=== PATIENT | female | born 1955 | race Caucasian/White ===

== ENCOUNTER → 2017-10-20 09:54 | Outpatient (CLI) | payer MEDICARE, SELFPAY ==
[2017-10-20 10:19] LABS: Basophils # 0.1 K/mm3 (0-0.2); Basophils % 0.8 % (0.1-2.0); Eosinophils # 0.3 K/mm3 (0.0-0.4); Eosinophils % 3.5 % (0.1-12.0); Hematocrit 48.2 % (37.0-47.0); Hemoglobin 15.8 g/dL (12.2-16.2); Lymphocytes # 2.4 K/mm3 (0.7-4.5); Lymphocytes % 31.6 K/mm3 (10-50); Mean Corpuscular HGB Conc 32.7 g/dL (31.8-35.4); Mean Corpuscular Hemoglobin 30.8 pg (27.0-31.2); Mean Platelet Volume 7.6 fl (7.4-10.4); Monocytes # 0.5 K/mm3 (0.1-1.0); Monocytes % 6.2 % (1.7-9.3); Neutrophils # 4.5 K/mm3 (1.8-7.8); Platelet Count 249 K/mm3 (142-424); Red Blood Count 5.12 M/mm3 (4.20-5.40); Red Cell Distribution Width 13.6 % (11.5-17.5); White Blood Count 7.7 K/mm3 (4.8-10.8)
[2017-10-20 10:44] LABS: Hemoglobin A1C 7.4 % (0.0-7.0)
[2017-10-20 11:14] LABS: Alanine Aminotransferase 27 U/L (12-78); Albumin Level 3.7 gm/dL (3.4-5.0); Albumin/Globulin Ratio 1.3 (1.1-1.8); Alkaline Phosphatase 80 U/L (46-116); Anion Gap 12.5 mEq/L (5-15); Bilirubin,Total 0.5 mg/dL (0.2-1.0); Blood Urea Nitrogen 15 mg/dL (7-18); Calcium 9.1 mg/dL (8.5-10.1); Carbon Dioxide 27 mmol/L (21.0-32.0); Chloride 106 mmol/L (98-107); Chol/HDL Ratio 3.2 (1-3.5); Cholesterol 140 mg/dL (140-200); Creatinine,Serum 0.65 mg/dL (0.55-1.02); Estimated Glomerular Filt Rate 92 ml/min (>60); GFR (African American) 112 ML/MIN (>60); Globulin 2.9 gm/dl (1.3-3.2); Glucose 136 mg/dL (74-106); HDL Cholesterol 44 mg/dL (29-89); LDL Cholesterol 83 mg/dL (0-130); Sodium 141 mmol/L (136-145); Thyroid Stimulating Hormone 0.62 uIU/ml (0.358-3.740); Total Protein,Serum 6.6 gm/dL (6.4-8.2); Triglycerides 66 mg/dL (30-200); VLDL Cholesterol 13 mg/dL (0-40)
[2017-10-20 11:15] LABS: Potassium 4.5 mmoL/L (3.5-5.1)
[2017-10-20 11:16] LABS: Aspartate Amino Transferase 14 U/L (15-37)
== END ==
PROVIDERS: PCP Internal Medicine Adolescent Medicine; Visit Provider Nurse Practitioner Family
DX: E11.9 Type 2 diabetes mellitus without complications (principal); I10 Essential (primary) hypertension; R63.4 Abnormal weight loss; J44.9 Chronic obstructive pulmonary disease, unspecified
CPT/HCPCS: 36415; 80053; 80061; 83036; 84443; 85025

== ENCOUNTER → 2017-10-20 10:14 | Outpatient (CLI) | payer MEDICARE, SELFPAY ==
--- NOTE | 2017-10-20 | XR_ITS ---
XR clavicle LT COMPARISON: CT scan the chest 04/02/2017 HISTORY: Possible soft tissue mass near AC joint TECHNIQUE: 2 views of the clavicle FINDINGS: The clavicle is intact and the AC joint appears normal. There is a small area of soft tissue prominence overlying the distal clavicle measuring roughly 4.5 cm at its base which shows the same attenuation as the soft tissues about the humeral head and upper arm. Humeral head and glenoid appear normal. There is apparent stent likely involving the origin the left common carotid artery at the aortic arch. IMPRESSION: Small soft tissue swelling and/or mass projecting over the lateral clavicle possibly representing a lipoma, possibly MRI scan of the left shoulder helpful for additional evaluation
== END ==
PROVIDERS: PCP Internal Medicine Adolescent Medicine; Visit Provider Internal Medicine Adolescent Medicine
DX: C34.92 Malignant neoplasm of unspecified part of left bronchus or lung (principal); Q79.8 Other congenital malformations of musculoskeletal system; J44.9 Chronic obstructive pulmonary disease, unspecified; Z79.899 Other long term (current) drug therapy
CPT/HCPCS: 36415; 73000; 80053; 80061; 83036; 84443; 85025

== ENCOUNTER → 2017-10-25 15:28 | Outpatient (CLI) | payer MEDICARE, SELFPAY ==
--- NOTE | 2017-10-25 15:33 | MM_ITS ---
MM Dig screening mamm BI w/CAD CAD Screening ORDERING PHYSICIAN : Brandy Jorgensen PATIENT AGE: 62 years GENDER: Female COMPARISON: Previous mammograms: 20 INDICATION: Routine screening 62-year-old no hormones no new complaints noncontributory family history TECHNIQUE: Standard CC and MLO images were obtained. R2 CAD reviewed. FINDINGS: Fairly low-density breast with minimal fibroglandular elements scattered throughout both breasts No new areas concern either breast. No dominant mass nor suspicious calcifications. CAD highlights no areas of concern either. Follow-up in one year recommended IMPRESSION: No areas of concern. Negative stable bilateral mammogram . Follow up one year BI-RADS Category: 1 Negative RECOMMENDED FOLLOW-UP: 1YR - 1 YEAR FOLLOW-UP (A letter has been sent to the patient regarding results of the study.)
--- NOTE | 2017-10-25 15:34 | XR_ITS ---
XR DEXA axial skeleton HISTORY: ITS.REASON: POSTMENOPAUSAL ORDERING PHYSICIAN: Brandy Jorgensen PATIENT AGE: 62 years COMPARISON: None FINDINGS: The BMD measured at the right femoral neck is 0.727 g/cm squared with a T score of -2.2. This is considered Osteopenic according to the World Health Organization criteria. Fracture risk is Moderate. Treatment is advised. The density of the L-spine as a T score of 1.0 IMPRESSION: Osteopenia with moderate fracture risk. Treatment suggested. Recommend follow-up exam October 2019
== END ==
PROVIDERS: PCP Internal Medicine Adolescent Medicine; Visit Provider Nurse Practitioner Family
DX: Z12.31 Encounter for screening mammogram for malignant neoplasm of breast (principal); Z78.0 Asymptomatic menopausal state; Z13.820 Encounter for screening for osteoporosis
CPT/HCPCS: 77067; 77080

== ENCOUNTER → 2017-10-29 08:36 | Outpatient (CLI) | payer MEDICARE, SELFPAY ==
--- NOTE | 2017-10-29 08:42 | MR_ITS ---
MR shoulder LT wo con HISTORY: Palpable abnormality on top of the shoulder around the clavicle increasing in size with abnormal radiograph ITS.REASON: SOFT TISSUE MASS, ABNORMAL FINDINGS ON DIAGNOSTIC IMAGING OF ORDERING PHYSICIAN: Brandy Jorgensen PATIENT AGE: 62 years COMPARISON: Radiograph of 10/20/2017 TECHNIQUE: Standard multiplanar multiecho sequences are performed without contrast. FINDINGS: There is a 2.7 x 1.6 x 2.2 cm cystic lesion along the superior aspect of the acromioclavicular joint.. This is directly contiguous with the AC joint. Hypertrophic changes are present at the AC joint causing some impingement upon the supraspinatus tendon with subacromial stenosis of approximately 5 mm. There are some hypertrophic changes along the undersurface of the acromion. Tendinopathy/tendinosis present involving the supraspinatus tendon with some mild thinning of the tendon distally with some discontinuous signal along the distal aspect of the supraspinatus tendon consistent with a partial tear. Tendinopathy/tendinosis involves the infraspinatus tendon with also suspected partial tear. Subscapularis and teres minor tendons are intact. No obvious labral tear. Bicipital tendon is in place. No fracture or dislocation. No bony destructive lesions. IMPRESSION: 1. 2.7 cm subcutaneous cystic lesion along the superior aspect of the acromioclavicular joint possibly related to a bursa from the AC joint versus a subcutaneous cystic lesion. 2. Acromioclavicular arthropathy with subacromial stenosis and impingement upon the supraspinatus tendon. 3. Tendinopathy/tendinosis of the supraspinatus and infraspinatus tendons with partial tears. A complete tear with tendinous and muscle retraction not identified although there is some thinning of the distal aspect of the supraspinatus tendon which could be related to chronic tears.
== END ==
PROVIDERS: PCP Internal Medicine Adolescent Medicine; Visit Provider Nurse Practitioner Family
DX: R93.7 Abnormal findings on diagnostic imaging of other parts of musculoskeletal system (principal)
CPT/HCPCS: 73221

== ENCOUNTER → 2017-11-26 15:47 | Outpatient (CLI) | payer MEDICARE, SELFPAY ==
[2017-11-26 16:00] LABS: Basophils # 0.1 K/mm3 (0-0.2); Basophils % 0.6 % (0.1-2.0); Eosinophils # 0.3 K/mm3 (0.0-0.4); Eosinophils % 3.6 % (0.1-12.0); Hematocrit 46.3 % (37.0-47.0); Hemoglobin 15.1 g/dL (12.2-16.2); Lymphocytes # 2.9 K/mm3 (0.7-4.5); Lymphocytes % 38.3 K/mm3 (10-50); Mean Corpuscular HGB Conc 32.5 g/dL (31.8-35.4); Mean Corpuscular Hemoglobin 31.2 pg (27.0-31.2); Mean Corpuscular Volume 95.8 fl (81-99); Mean Platelet Volume 7.6 fl (7.4-10.4); Monocytes # 0.5 K/mm3 (0.1-1.0); Monocytes % 6.9 % (1.7-9.3); Neutrophils # 3.9 K/mm3 (1.8-7.8); Neutrophils % 50.7 % (37.0-80.0); Platelet Count 262 K/mm3 (142-424); Red Blood Count 4.83 M/mm3 (4.20-5.40); Red Cell Distribution Width 13.8 % (11.5-17.5); White Blood Count 7.7 K/mm3 (4.8-10.8)
[2017-11-26 16:11] LABS: Alanine Aminotransferase 26 U/L (12-78); Albumin Level 3.6 gm/dL (3.4-5.0); Albumin/Globulin Ratio 1.1 (1.1-1.8); Alkaline Phosphatase 73 U/L (46-116); Anion Gap 12.1 mEq/L (5-15); Aspartate Amino Transferase 6 U/L (15-37); Bilirubin,Total 0.2 mg/dL (0.2-1.0); Blood Urea Nitrogen 13 mg/dL (7-18); Calcium 9.3 mg/dL (8.5-10.1); Carbon Dioxide 31 mmol/L (21.0-32.0); Chloride 105 mmol/L (98-107); Creatinine,Serum 0.78 mg/dL (0.55-1.02); Estimated Glomerular Filt Rate 75 ml/min (>60); GFR (African American) 91 ML/MIN (>60); Globulin 3.3 gm/dl (1.3-3.2); Glucose 222 mg/dL (74-106); Potassium 4.1 mmoL/L (3.5-5.1); Sodium 144 mmol/L (136-145); Total Protein,Serum 6.9 gm/dL (6.4-8.2)
== END ==
PROVIDERS: PCP Internal Medicine Adolescent Medicine; Visit Provider Otolaryngology
DX: Z01.818 Encounter for other preprocedural examination (principal); R49.0 Dysphonia; J38.1 Polyp of vocal cord and larynx; K11.8 Other diseases of salivary glands
CPT/HCPCS: 36415; 80053; 85025; 93005

== ENCOUNTER 2017-11-29 08:05 | Day surgery (SDC) | payer MEDICARE, SELFPAY ==
[2017-11-27 17:04] VITALS: BMI 31.1
[2017-11-29] VITALS (10 sets, daily range): BP systolic 106–143; BP diastolic 52–97; PULSE 77–87; RESP 12–22; TEMP 36.2–36.6; O2SAT 86–92
[2017-11-29 08:39] LABS: POC Glucose,Bedside 156 mg/dL (70-110)
--- NOTE | 2017-11-29 08:54 | P.PN_ITS ---
[facility] Anesthesia Checklist - Patient Identification Patient Identification: Arm Band - Structural Data Admitted From: Home Planned Operative Procedure/s: laryngoscopy Consent for Planned Operative Procedure(s) Verified: Yes Verified Documents: Surgical Consent, History and Physical - NPO Status Verified Time NPO: 00:00 - Additional verifications Anesthesia Reactions: No - Airway Assessment C-Spine Mobility Assessed: Yes (mp2) TMJ Mobility Assessed: Yes Dentition: Edentulous - Neurological Assessment Level of Consciousness: Awake, Alert - Anesthesia Plan Anesthesia Risk discussed: Yes Anesthesia Plan: Verified ASA Class: III Anesthesia Type: General [facility] Anesthesia HX I have reviewed the patient's past medical history: Yes Medical History: Reports:: Cancer (lung), Chronic Obstructive Pulmonary Disease (COPD), Coronary Artery Disease, Cerebrovascular Accident, Diabetes Mellitus Type 2, Hyperlipidemia, Hypertension, Myocardial Infarction Denies:: Diabetes Mellitus Type 1, Internal Pacemaker, MRSA, Seizures Other Medical History: Denies: Blood Transfusion Reaction Laterality Cases: Bilateral: Tonsillectomy Other Surgeries: Yes: Hysterectomy-Total. No: Pacemaker Amputation: No Fractures: No *Family Hx:: Diabetes, Hypertension, Heart Attack, Coronary Artery Disease, Hyperlipidemia
--- NOTE | 2017-11-29 10:48 | HMH.ANESI ---
[facility] Anesthesia Record Part I Intake, IV Amount: 800 Estimated blood loss (mL): 0 Urine output (mL): 0 Blood Pressure: 143/97 SaO2: 92 Pulse Rate: 77 Respiratory Rate: 12 Temperature: 97.5 F Patient is:: Awake, Stable Stable to PACU at:: 10:45
--- NOTE | 2017-11-29 10:49 | HMH.ANESII ---
[facility] Anesthesia Record Part II Discharge Time: 11:15 Destination: [facility] PACU nurse assessment reviewed?: Yes Patient Condition:: Good Anesthesia Complications:: None
--- NOTE | 2017-11-29 10:50 | P.PN_ITS ---
[facility] Anesthesia Record Part II Discharge Time: 11:15 Destination: [facility] PACU nurse assessment reviewed?: Yes Patient Condition:: Good Anesthesia Complications:: None
--- NOTE | 2017-11-29 14:36 | SUR.PHASEI ---
1055- pt has COPD, highest O2 sats prior to surgery is 91% on RA & pt states that is her baseline.
--- NOTE | 2017-12-03 12:46 | HMH.OPNOTE ---
Date of procedure: 11/29/17 Pre-op Diagnosis:: 1.Hoarseness 2. right vocal polyp Post-op Diagnosis:: same Procedure performed:: Microlaryngoscopy with removal of the right vocal polyp Surgeon:: Bakari Barksdale MD BIOSTATISTICIAN:: Kenny Mendoza Anesthesia: GETA Estimated blood loss (mL): 1 Operative findings:: same Operative note:: The SlimLine laryngoscope was used to expose the larynx. The supraglottic and subglottic portions of the larynx were normal. 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 Using the endoscopic instruments and scopes the polyps were removed from the right vocal cord and submitted. Blood loss was less than 1 cc and stopped with topical epinephrine. The patient tolerated the procedure well and was sent to the recovery room in good general condition. Condition: stable Disposition: PACU Complications:: none
--- NOTE | 2017-12-03 12:49 | P.OP_ITS ---
Date of procedure: 11/29/17 Pre-op Diagnosis:: 1.Hoarseness 2. right vocal polyp Post-op Diagnosis:: same Procedure performed:: Microlaryngoscopy with removal of the right vocal polyp Surgeon:: Bakari Barksdale MD MANAGER BANK:: Kenny Mendoza Anesthesia: GETA Estimated blood loss (mL): 1 Operative findings:: same Operative note:: The SlimLine laryngoscope was used to expose the larynx. The supraglottic and subglottic portions of the larynx were normal. 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 Using the endoscopic instruments and scopes the polyps were removed from the right vocal cord and submitted. Blood loss was less than 1 cc and stopped with topical epinephrine. The patient tolerated the procedure well and was sent to the recovery room in good general condition. Condition: stable Disposition: PACU Complications:: none
== END 2017-11-29 12:00 | disposition home or self-care (01) ==
PROVIDERS: PCP Internal Medicine Adolescent Medicine; Visit Provider Otolaryngology
PROC: 0CJS8ZZ Inspection of Larynx, Via Natural or Artificial Opening Endoscopic (ICD-10-PCS; principal; 2017-11-29 09:35)
DX: D14.1 Benign neoplasm of larynx (principal); Z79.899 Other long term (current) drug therapy
CPT/HCPCS: 31536; 82962; 88305; 96374; 96375

== ENCOUNTER → 2018-04-20 07:25 | Outpatient (CLI) | payer MEDICARE, SELFPAY ==
[2018-04-20 07:30] LABS: Microscopic, Urine URINE MICROSCOPIC (MICROSCOPIC)
[2018-04-20 07:56] LABS: Appearance,Urine CLEAR (Clear); Bilirubin,Urine Negative (Negative); Blood, Urine TRACE-L (Negative); Color,Urine YELLOW (Yellow); Glucose,Urine (UA) Negative (Negative); Ketones,Urine Negative (Negative); Leukocyte Esterase,Urine Negative (Negative); Nitrate,Urine Negative (Negative); PH,Urine 6.5 (5.0-8.5); Protein,Urine Negative (Negative); Urobilinogen,Urine 0.2 EU/dl (0.2)
[2018-04-20 08:35] LABS: Hemoglobin A1C 7.7 % (0.0-7.0); Squamous Epithelial Cell,Urine Occasional #/hpf (0-5); WBC,Urine Occasional #/hpf (0-3); Yeast,Urine 1+ /lpf
[2018-04-20 08:37] LABS: Basophils # 0.1 K/mm3 (0-0.2); Basophils % 0.8 % (0.1-2.0); Eosinophils # 0.3 K/mm3 (0.0-0.4); Eosinophils % 4.5 % (0.1-12.0); Hematocrit 46.4 % (37.0-47.0); Hemoglobin 15.7 g/dL (12.2-16.2); Lymphocytes # 2.5 K/mm3 (0.7-4.5); Lymphocytes % 34.2 K/mm3 (10-50); Mean Corpuscular HGB Conc 33.8 g/dL (31.8-35.4); Mean Corpuscular Hemoglobin 31.9 pg (27.0-31.2); Mean Corpuscular Volume 94.5 fl (81-99); Mean Platelet Volume 7.4 fl (7.4-10.4); Monocytes # 0.5 K/mm3 (0.1-1.0); Monocytes % 7.1 % (1.7-9.3); Neutrophils # 3.9 K/mm3 (1.8-7.8); Neutrophils % 53.3 % (37.0-80.0); Platelet Count 259 K/mm3 (142-424); Red Blood Count 4.91 M/mm3 (4.20-5.40); Red Cell Distribution Width 13.2 % (11.5-17.5); White Blood Count 7.3 K/mm3 (4.8-10.8)
[2018-04-20 09:47] LABS: Alanine Aminotransferase 25 U/L (12-78); Albumin Level 3.7 gm/dL (3.4-5.0); Albumin/Globulin Ratio 1.3 (1.1-1.8); Alkaline Phosphatase 76 U/L (46-116); Anion Gap 8.2 mEq/L (5-15); Aspartate Amino Transferase 9 U/L (15-37); Bilirubin,Total 0.4 mg/dL (0.2-1.0); Blood Urea Nitrogen 12 mg/dL (7-18); Calcium 9.3 mg/dL (8.5-10.1); Carbon Dioxide 29 mmol/L (21.0-32.0); Chloride 106 mmol/L (98-107); Cholesterol 126 mg/dL (140-200); Creatinine,Serum 0.71 mg/dL (0.55-1.02); Estimated Glomerular Filt Rate 83 ml/min (>60); GFR (African American) 101 ML/MIN (>60); Globulin 2.9 gm/dl (1.3-3.2); Glucose 152 mg/dL (74-106); HDL Cholesterol 42 mg/dL (29-89); LDL Cholesterol 68 mg/dL (0-130); Potassium 4.2 mmoL/L (3.5-5.1); Sodium 139 mmol/L (136-145); Total Protein,Serum 6.6 gm/dL (6.4-8.2); Triglycerides 78 mg/dL (30-200); VLDL Cholesterol 16 mg/dL (0-40)
[2018-04-21 04:07] LABS: Creatinine, Urine 65.9 mg/dL (Not Estab.); Microalbumin, Urine <3.0 ug/mL (Not Estab.)
== END ==
PROVIDERS: Visit Provider Nurse Practitioner Family
DX: E11.9 Type 2 diabetes mellitus without complications (principal); I10 Essential (primary) hypertension; J44.9 Chronic obstructive pulmonary disease, unspecified; R10.32 Left lower quadrant pain; F17.200 Nicotine dependence, unspecified, uncomplicated
CPT/HCPCS: 36415; 80053; 80061; 81001; 82043; 82570; 83036; 85025

== ENCOUNTER → 2018-04-26 09:30 | Outpatient (CLI) | payer MEDICARE, SELFPAY ==
--- NOTE | 2018-04-26 09:35 | CT_ITS ---
CT abdomen pelvis wo/w con CLINICAL INDICATION: Hematuria with left-sided abdominal pain ITS.REASON: HEMATURIA ORDERING PHYSICIAN: Brandy Jorgensen PATIENT AGE: 62 years COMPARISON: TECHNIQUE: Axial images obtained without and with contrast with sagittal and coronal reformats. All CT scans at the facility use one or more dose reduction, viz: automated exposure control, ma/kV adjustment per patient size (including targeted exams where dose is matched to indication, i.e. head), or iterative reconstruction technique. PROCEDURE: Oral Contrast: None IV Contrast: 75 mg of Isovue-370. FINDINGS: Images of the lung bases show prominent fat density within the right interatrial septal region consistent with a lipoma measuring 3 x 2.4 cm unchanged. There are coronary artery calcifications. Subtle 6 mm isodense involves the right hepatic lobe posteriorly. An additional 6 mm isodense is present just deep to the gallbladder fossa within the right lobe of the liver. These are nonspecific too small to characterize. No calcified gallstones. The spleen, adrenal glands, and pancreas have an unremarkable appearance. There is a small calcific density along pancreatic head superiorly and may be within a small. Pancreatic lymph node.. No renal or ureteral calculi. Vascular calcifications are present within the kidneys. No hydronephrosis. No renal mass. Unremarkable appendix. There is diverticulosis of the sigmoid colon but no evidence of diverticulitis. There is mild nonspecific thickening of the sigmoid colon which may be seen with colitis. Prior hysterectomy. No pelvic mass or abnormal fluid collection. No acute bony anomalies. IMPRESSION: 1. No acute abdominal or pelvic findings. 2. At least 2 6-mm isodense lesions of the liver nonspecific too small to categorize and are statistically probably benign 3. Sigmoid diverticulosis. Nonspecific thickening of the sigmoid colon which could be related to colitis. No evidence of diverticulitis. 4. 3 cm fatty lesion of the intra-atrial septum of the heart consistent with a lipoma
== END ==
PROVIDERS: Family Provider Internal Medicine Adolescent Medicine; PCP Internal Medicine Adolescent Medicine; Visit Provider Nurse Practitioner Family
DX: R31.29 Other microscopic hematuria (principal)
CPT/HCPCS: 74170; 74178; Q9967

== ENCOUNTER → 2018-05-01 06:19 | Outpatient (CLI) | payer MEDICARE, SELFPAY ==
--- NOTE | 2018-05-01 06:21 | CA_ITS ---
PROCEDURE: 2-D M-mode and color Doppler study INDICATIONS FOR THE TEST: Chest pain COPD+ Heart Murmur Tobacco Smoking+ Palpitations Fatigue Syncope Edema+ Hypertension+Diabetes Mellitus+ Rheumatic Fever SOB+ACUÑA+Obesity Hyperlipidemia+ Family History HD Additional History hx of CVA, HX of CA, 1 stent Patient had an oxygen sat of 83 after walking to echo dept from stress test. Doctor was notified and patient was placed on oxygen 2 liters by nasal cannula. Patient is going to see family doctor after completion of stress images. PATIENT INFORMATION HEIGHT: 62 WEIGHT: 182 GENDER: Female B/P: 135/67 2-D/M-MODE INTERPRETATION: 2-D MEASUREMENTS OBSERVED VALUES IN CMS Right Ventricular Dimension (RVDd) 3.0 Interventricular Septum (Thickness)(IVsd) 0.9 Left Ventricular Internal Dimensions(LVIDd) 5.2 Left Ventricular Posterior Wall (Thickness)(LVPWd) 0.9 Aortic Root 3.1 Aortic Cusp Separation 2.1 Left Atrial Dimensions (LAD) 4.2 2D 1. Left atrium is mildly enlarged, left ventricle is normal size, there is mild qualitative concentric left ventricular hypertrophy, visually estimated ejection fraction 50% with no obvious regional wall motion abnormality. 2. The right atrium and right ventricle are mildly enlarged with normal contractility. 3. The aortic valve is minimally thickened and fibrosed. 4. The mitral and tricuspid valve leaflets are minimally thickened 5. The pulmonic valve is poorly visualized. 6. No significant pericardial effusion noted. DOPPLER INTERROGATION: Doppler interrogation of the aortic, mitral and tricuspid valvular presence of mild mitral and tricuspid regurgitation, tricuspid and jet velocity is insufficient for calculation of the right ventricular systolic pressure, grade 1 diastolic dysfunction seen with tissue Doppler evidence of raised left atrial pressure. CONCLUSION: 1. Biatrial enlargement, normal left ventricular size, mild concentric left ventricular hypertrophy, visually estimated to fraction 50% with no obvious regional wall motion abnormality, grade 1 diastolic dysfunction seen with tissue Doppler evidence of raised left atrial pressure. 2. Mild mitral and tricuspid regurgitation 3. No significant pericardial effusion noted.
--- NOTE | 2018-05-01 06:21 | NM_ITS ---
History and Indications: Coronary artery disease, previous CT, hypertension, diabetes, hyperlipidemia, chronic tobacco use, family history and shortness of breath. Procedure: Patient received a 0.4 milligrams of Lexiscan, resting heart rate was 75 bpm, resting blood pressure 160/82, with Lexiscan maximum heart rate achieved was 99 bpm is less than 85% of the maximum predicted heart rate and a blood pressure was 126/66. With Lexiscan patient complained of shortness of breath and nausea Electrocardiogram: Resting electrocardiogram showed sinus rhythm nonspecific changes, with Lexiscan there is less than 1.[address] segment depression noted from the baseline EKG. The EKG portion of the Lexiscan Myoview is nondiagnostic. Cardiac stress and resting SPECT images: Cardiac stress and rest SPECT images were obtained using technetium 99 Myoview 31.7 mCi at stress and 9.9 mCi at rest. Gated SPECT further analysis of segmental wall motion and calculation of the ejection fraction also done. Cardiac stress and rest images show decreased tracer activity in the anterolateral wall which improves on the resting images suggestive of reversible ischemia, in addition there is a fixed defect involving the inferior and posterobasal wall consistent with nontransmural myocardial scarring without significant odette-infarct ischemia in that area. Ejection fraction is 49% with moderate hypokinesis involving the inferior and posterobasal wall, right ventricle is mildly enlarged with normal contractility. Conclusion: 1. The EKG portion of the Lexiscan Myoview is nondiagnostic. 2. Scintigraphic evidence of nontransmural myocardial scarring involving the inferior and posterobasal wall without significant odette-infarct ischemia, in addition there is reversible ischemia involving the anterolateral wall. Computer derived ejection fraction is 49% segmental wall motion abnormality described above, right ventricle is mildly enlarged with normal contractility. 3. Abnormal Lexiscan Myoview study.
--- NOTE | 2018-05-01 07:08 | HMH.ITSHM ---
TIOTROPIUM POTASSIUM METFORMIN MELOXICAM MELATONIN ATENOLOL HYDROCHLOROTHIAZIDE GABAPENTIN FUROSEMIDE CLOPIDOGREL CETIRIZINE ATORVASTATIN ALBUTEROL
--- NOTE | 2018-05-01 08:36 | PC.NURSE ---
AFTER WALKING FROM STRESS LAB TO ECHO LAB PATIENT'S PULSE OX WAS 82% ON ROOM AIR. PLACED ON 2LPM FOR A PULSE OX OF 90% DR. GONSALES'S OFFICE WAS CONTACTED AND PATIENT IS TO RETURN TO OFFICE WHEN TESTING IS DONE
--- NOTE | 2018-05-01 09:55 | HMH.ITSHM ---
tiotropium potassium metformin meloxicam melatonin atenolol hctz gabapentin furosemide clopidogrel cetirizine atorvastatin albuterol
== END ==
PROVIDERS: Family Provider Internal Medicine Adolescent Medicine; PCP Internal Medicine Adolescent Medicine; Visit Provider Internal Medicine
DX: I25.10 Atherosclerotic heart disease of native coronary artery without angina pectoris (principal); R06.09 Other forms of dyspnea; R94.31 Abnormal electrocardiogram [ECG] [EKG]
CPT/HCPCS: 78452; 93017; 93306; A9502; J2785

== ENCOUNTER → 2018-05-13 11:30 | Outpatient (CLI) | payer MEDICARE, SELFPAY ==
--- NOTE | 2018-05-13 11:32 | XR_ITS ---
XR chest 2V HISTORY: Shortness of air ITS.REASON: soa ORDERING PHYSICIAN: Sheree Diallo PATIENT AGE: 62 years COMPARISON: 03/11/2017 FINDINGS: Unremarkable cardiovascular structures. There is chronic coarsening of the bronchovascular markings with hyperinflation consistent with COPD. There is an irregular area of increased density in the left upper lobe medially superior to the aortic knob. While this could be due to summation artifact, a developing nodule/neoplasm is an additional consideration and chest CT is suggested for further evaluation. No lobar consolidation or collapse. Coronary artery stent is present anteriorly. There is increased density in the left lower lobe posteriorly suspicious for an area of infiltrate. No acute bony anomalies. Para impression: 1. COPD with left lower lobe infiltrate. 2. Irregular opacity in the left upper lobe medially suspicious for developing nodule/neoplasm. Recommend CT chest with contrast for further evaluation
== END ==
PROVIDERS: PCP Internal Medicine Adolescent Medicine; Visit Provider Urology
DX: R06.02 Shortness of breath (principal)
CPT/HCPCS: 71046

== ENCOUNTER 2018-05-28 09:03 | Outpatient (RCR) | payer MEDICARE, SELFPAY | END 2018-07-31 10:19 | disposition home or self-care (01) | LOC: PT 09:03 | PROVIDERS: Family Provider Internal Medicine Adolescent Medicine; PCP Internal Medicine Adolescent Medicine; Visit Provider Internal Medicine | DX: Z95.5 Presence of coronary angioplasty implant and graft (principal) | CPT/HCPCS: 93798 ==

== ENCOUNTER → 2018-06-28 11:47 | Outpatient (CLI) | payer MEDICARE, SELFPAY | PROVIDERS: PCP Internal Medicine Adolescent Medicine; Visit Provider Internal Medicine | DX: E11.9 Type 2 diabetes mellitus without complications (principal); E78.5 Hyperlipidemia, unspecified; I10 Essential (primary) hypertension; I25.10 Atherosclerotic heart disease of native coronary artery without angina pectoris; J44.9 Chronic obstructive pulmonary disease, unspecified; Z95.5 Presence of coronary angioplasty implant and graft | CPT/HCPCS: 36415; 84132 ==

== ENCOUNTER → 2018-07-02 12:19 | Outpatient (CLI) | payer MEDICARE, SELFPAY ==
[2018-07-02 12:48] LABS: Basophils # 0.1 K/mm3 (0-0.2); Basophils % 0.5 % (0.1-2.0); Eosinophils # 0.3 K/mm3 (0.0-0.4); Eosinophils % 2.8 % (0.1-12.0); Hematocrit 46.4 % (37.0-47.0); Hemoglobin 15.4 g/dL (12.2-16.2); Lymphocytes # 2.4 K/mm3 (0.7-4.5); Lymphocytes % 22.7 K/mm3 (10-50); Mean Corpuscular HGB Conc 33.1 g/dL (31.8-35.4); Mean Corpuscular Hemoglobin 31.6 pg (27.0-31.2); Mean Corpuscular Volume 95.6 fl (81-99); Mean Platelet Volume 7.6 fl (7.4-10.4); Monocytes # 0.7 K/mm3 (0.1-1.0); Monocytes % 6.4 % (1.7-9.3); Neutrophils # 7.3 K/mm3 (1.8-7.8); Neutrophils % 67.7 % (37.0-80.0); Platelet Count 232 K/mm3 (142-424); Red Blood Count 4.86 M/mm3 (4.20-5.40); Red Cell Distribution Width 13.4 % (11.5-17.5); White Blood Count 10.8 K/mm3 (4.8-10.8)
[2018-07-02 13:12] LABS: Anion Gap 12.8 mEq/L (5-15); Blood Urea Nitrogen 15 mg/dL (7-18); Calcium 9.4 mg/dL (8.5-10.1); Carbon Dioxide 30 mmol/L (21.0-32.0); Chloride 97 mmol/L (98-107); Creatinine,Serum 0.99 mg/dL (0.55-1.02); Estimated Glomerular Filt Rate 57 ml/min (>60); GFR (African American) 69 ML/MIN (>60); Glucose 230 mg/dL (74-106); Potassium 3.8 mmoL/L (3.5-5.1); Sodium 136 mmol/L (136-145)
== END ==
PROVIDERS: PCP Internal Medicine Adolescent Medicine; Visit Provider Internal Medicine
DX: I50.9 Heart failure, unspecified (principal)
CPT/HCPCS: 36415; 80048; 83880; 85025

== ENCOUNTER → 2019-03-27 08:22 | Outpatient (CLI) | payer MEDICARE, SELFPAY ==
[2019-03-27 09:02] LABS: Basophils % 0.6 % (0.1-2.0); Eosinophils # 0.3 K/mm3 (0.0-0.4); Eosinophils % 4.2 % (0.1-12.0); Hematocrit 50.4 % (37.0-47.0); Hemoglobin 15.3 g/dL (12.2-16.2); Lymphocytes # 2.5 K/mm3 (0.7-4.5); Lymphocytes % 36.8 % (10-50); Mean Corpuscular HGB Conc 30.4 g/dL (31.8-35.4); Mean Corpuscular Hemoglobin 31.7 pg (27.0-31.2); Mean Corpuscular Volume 104.1 fl (81-99); Mean Platelet Volume 9.1 fl (7.4-10.4); Monocytes # 0.6 K/mm3 (0.1-1.0); Monocytes % 8.2 % (1.7-9.3); Neutrophils # 3.4 K/mm3 (1.8-7.8); Neutrophils % 50.2 % (37.0-80.0); Platelet Count 271 K/mm3 (142-424); Red Blood Count 4.84 M/mm3 (4.20-5.40); Red Cell Distribution Width 13.9 % (11.5-17.5); White Blood Count 6.9 K/mm3 (4.8-10.8)
[2019-03-27 11:48] LABS: Hemoglobin A1C 6.7 % (0.0-7.0)
[2019-03-27 12:18] LABS: Alanine Aminotransferase 22 U/L (12-78); Albumin Level 3.4 gm/dL (3.4-5.0); Albumin/Globulin Ratio 1.3 (1.1-1.8); Alkaline Phosphatase 76 U/L (46-116); Anion Gap 14.4 mEq/L (5-15); Aspartate Amino Transferase 13 U/L (15-37); Bilirubin,Total 0.3 mg/dL (0.2-1.0); Blood Urea Nitrogen 19 mg/dL (7-18); Calcium 9.2 mg/dL (8.5-10.1); Carbon Dioxide 26 mmol/L (21.0-32.0); Chloride 107 mmol/L (98-107); Creatinine,Serum 0.74 mg/dL (0.55-1.02); Estimated Glomerular Filt Rate 79 ml/min (>60); GFR (African American) 96 ML/MIN (>60); Globulin 2.6 gm/dl (1.3-3.2); Glucose 114 mg/dL (74-106); Magnesium 1.8 mg/dL (1.4-2.2); Potassium 4.4 mmoL/L (3.5-5.1); Sodium 143 mmol/L (136-145); Thyroid Stimulating Hormone 0.76 uIU/ml (0.358-3.740)
[2019-03-28 10:42] LABS: Microalbumin, Urine 11.7 ug/mL (Not Estab.)
[2019-03-28 17:15] LABS: Vitamin B12 183 pg/mL (232-1245)
== END ==
PROVIDERS: Visit Provider Nurse Practitioner Family
DX: R42 Dizziness and giddiness (principal); E11.9 Type 2 diabetes mellitus without complications; E78.2 Mixed hyperlipidemia; I25.10 Atherosclerotic heart disease of native coronary artery without angina pectoris; J44.9 Chronic obstructive pulmonary disease, unspecified; F17.200 Nicotine dependence, unspecified, uncomplicated; Z79.84 Long term (current) use of oral hypoglycemic drugs
CPT/HCPCS: 36415; 80053; 82043; 82570; 82607; 83036; 83735; 84443; 85025

== ENCOUNTER → 2019-04-25 15:47 | Outpatient (CLI) | payer MEDICARE, SELFPAY ==
--- NOTE | 2019-04-25 15:53 | MM_ITS ---
MM Dig screening mamm BI w/CAD ORDERING PHYSICIAN : Brandy Jorgensen APRN PATIENT AGE: 63 years GENDER: Female COMPARISON: August 2016, October 2017, April bilateral mammograms as comparison HISTORY: Routine: SCREENING mammogram. No hormones. No new complaints. Noncontributory family history TECHNIQUE: Standard CC and MLO images were obtained. R2 CAD reviewed. FINDINGS: Minimal residual fibroglandular elements. Overall lower density breast with moderate fatty replacement No dominant or suspicious mass. No suspicious calcifications. No new findings of significant concern CAD computer review highlights no areas of concern either Small areas of asymmetric density at left breast dissipate from one view to another., With Similar areas seen on previous left mammogram 2018 IMPRESSION: ......... . Stable bilateral mammogram. No new findings of significant concern Follow-up one year recommended and encouraged BI-RADS Category: 1 Negative RECOMMENDED FOLLOW-UP: 1YR 1 YEAR FOLLOW-UP (A letter has been sent to the patient regarding results of the study.)
== END ==
PROVIDERS: PCP Internal Medicine Adolescent Medicine; Visit Provider Nurse Practitioner Family
DX: Z12.31 Encounter for screening mammogram for malignant neoplasm of breast (principal)
CPT/HCPCS: 77067

== ENCOUNTER → 2019-06-30 14:26 | Outpatient (CLI) | payer MEDICARE, SELFPAY ==
--- NOTE | 2019-06-30 14:28 | CA_ITS ---
APPROVED REPORT EXAM: Comprehensive 2D, Doppler, and color-flow Echocardiogram Homicide Detective: Mariya Monet CRT Ht: 5 ft 2 in Wt: 168lbs BSA: 1.78 BP: 118/72 mmHg Indications: COPD, PAD,, STENT, SMOKER,DM,EDEMA, HTN 2D Dimensions LVOT 1.70 cm (M/F) 1.5-2.5 M-Mode Dimensions RVDd 3.00 cm (0.9-2.6) LA Diam 3.30 cm (1.9-4.0) LVDd 4.70 cm (3.5-5.7) Ao Diam 3.10 cm (2.0-3.7) LVDs 3.20 cm (3.5-5.7) AV Cusp 1.60 cm (1.5-2.6) IVSd 1.80 cm (0.6-1.1) PWd 0.80 cm (0.6-1.1) EF (Teich) 59.80% FS 31.90% EDV (Teich) 102.00 mL ESV (Teich) 41.00 mL LV Diastology E/A Ratio 0.50 MED E' 4.87 (< 7 cm/sec) E'/MED E' Ratio 9.70 (>14) LAT E' 5.85 (<10 cm/sec) E/LAT E' Ratio 8.10 (>14) Aortic Valve AoV Peak Ramirez. 160.00 (50-130 cm/s) AO Peak GR. 10.00 mmHg Mitral Valve MV E Max Ramirez. 47.40 (40-130 cm/s) MV A Velocity 98.20 (40-130 cm/s) E/A Ratio 0.50 Pulmonary Valve PA Accel Time 144.00 (>120 msec) Tricuspid Valve TR P. Velocity 145.00 cm/s Left Ventricle Left atrium is mildly enlarged, left ventricle is normal size, mild concentric left ventricular hypertrophy, visually estimated ejection fraction of 55% with no regional wall motion abnormality, grade 1 diastolic dysfunction seen without tissue Doppler evidence of raise left atrial pressure. Right Ventricle Right atrium and right ventricular normal size and contractility. Aortic Valve Aortic valve is minimally thickened and fibrosed, there is no aortic stenosis aortic insufficiency. Mitral Valve Mitral valve is grossly normal, there is mild mitral regurgitation. Tricuspid Valve Tricuspid valve is grossly normal, there is mild tricuspid regurgitation. Pulmonic Valve Pulmonic valve is poorly visualized. Great Vessels Aortic root is normal size. Pericardium No significant pericardial effusion noted. Conclusion 1. Mildly enlarged left atrium, normal left ventricular size, mild concentric left ventricular hypertrophy, visually estimated ejection fraction 55% with no regional wall motion abnormality, grade 1 diastolic dysfunction seen without tissue Doppler evidence of raise left atrial pressure. 2. Thickened and calcified aortic valve without Doppler evidence of aortic stenosis aortic insufficiency. 3. Mild mitral and tricuspid regurgitation 4. No significant pericardial effusion noted. Electronically signed by : Rolly Mccall, 07/01/2019 05:41:00
== END ==
PROVIDERS: PCP Internal Medicine Adolescent Medicine; Visit Provider Nurse Practitioner Family
DX: I25.10 Atherosclerotic heart disease of native coronary artery without angina pectoris (principal); I73.9 Peripheral vascular disease, unspecified; I77.1 Stricture of artery; R42 Dizziness and giddiness; Z72.0 Tobacco use; Z95.5 Presence of coronary angioplasty implant and graft
CPT/HCPCS: 93306

== ENCOUNTER → 2019-07-21 13:51 | Outpatient (CLI) | payer MEDICARE, SELFPAY ==
[2019-07-21 15:28] LABS: Anion Gap 14.4 mEq/L (5-15); Blood Urea Nitrogen 15 mg/dL (7-18); Calcium 9.8 mg/dL (8.5-10.1); Carbon Dioxide 29 mmol/L (21.0-32.0); Chloride 102 mmol/L (98-107); Creatinine,Serum 0.71 mg/dL (0.55-1.02); Estimated Glomerular Filt Rate 83 ml/min (>60); GFR (African American) 100 ML/MIN (>60); Glucose 127 mg/dL (74-106); Potassium 4.4 mmoL/L (3.5-5.1); Sodium 141 mmol/L (136-145)
== END ==
PROVIDERS: Visit Provider Physician Assistant
DX: I25.10 Atherosclerotic heart disease of native coronary artery without angina pectoris (principal); R06.02 Shortness of breath; R06.00 Dyspnea, unspecified; R06.01 Orthopnea
CPT/HCPCS: 36415; 80048; 83880

== ENCOUNTER → 2019-10-08 07:36 | Outpatient (CLI) | payer MEDICARE, SELFPAY ==
[2019-10-08 09:44] LABS: Basophils # 0.1 K/mm3 (0-0.2); Basophils % 0.8 % (0.1-2.0); Eosinophils # 0.4 K/mm3 (0.0-0.4); Eosinophils % 5.2 % (0.1-12.0); Hematocrit 49.2 % (37.0-47.0); Hemoglobin 15.9 g/dL (12.2-16.2); Lymphocytes # 2.3 K/mm3 (0.7-4.5); Lymphocytes % 28.8 % (10-50); Mean Corpuscular HGB Conc 32.3 g/dL (31.8-35.4); Mean Platelet Volume 8.6 fl (7.4-10.4); Monocytes # 0.5 K/mm3 (0.1-1.0); Monocytes % 5.9 % (1.7-9.3); Neutrophils # 4.7 K/mm3 (1.8-7.8); Neutrophils % 59.3 % (37.0-80.0); Platelet Count 267 K/mm3 (142-424); Red Blood Count 5.12 M/mm3 (4.20-5.40); Red Cell Distribution Width 12.9 % (11.5-17.5); White Blood Count 7.9 K/mm3 (4.8-10.8)
[2019-10-08 10:33] LABS: Alanine Aminotransferase 15 U/L (12-78); Albumin Level 3.7 gm/dL (3.4-5.0); Anion Gap 13.5 mEq/L (5-15); Aspartate Amino Transferase 10 U/L (15-37); Bilirubin,Direct 0.1 mg/dL (0.0-0.2); Bilirubin,Indirect 0.3 mg/dL (0.0-0.9); Bilirubin,Total 0.4 mg/dL (0.2-1.0); Blood Urea Nitrogen 16 mg/dL (7-18); Calcium 9.4 mg/dL (8.5-10.1); Carbon Dioxide 30 mmol/L (21.0-32.0); Chloride 105 mmol/L (98-107); Creatinine,Serum 0.72 mg/dL (0.55-1.02); Estimated Glomerular Filt Rate 82 ml/min (>60); GFR (African American) 99 ML/MIN (>60); Glucose 143 mg/dL (74-106); Potassium 4.5 mmoL/L (3.5-5.1); Sodium 144 mmol/L (136-145); Total Protein,Serum 6.6 gm/dL (6.4-8.2); Triglycerides 84 mg/dL (30-200)
[2019-10-08 10:34] LABS: Alkaline Phosphatase 98 U/L (46-116); Chol/HDL Ratio 3.9 (1-3.5); Cholesterol 129 mg/dL (140-200); Free T4 (Free Thyroxine) 0.98 ng/dl (0.76-1.46); HDL Cholesterol 33 mg/dL (29-89); LDL Cholesterol 79 mg/dL (0-130); VLDL Cholesterol 17 mg/dL (0-40)
== END ==
PROVIDERS: Nurse Practitioner Family; Visit Provider Internal Medicine
DX: I10 Essential (primary) hypertension (principal); I25.10 Atherosclerotic heart disease of native coronary artery without angina pectoris; I73.9 Peripheral vascular disease, unspecified; I95.1 Orthostatic hypotension; J44.9 Chronic obstructive pulmonary disease, unspecified; R06.09 Other forms of dyspnea; R42 Dizziness and giddiness; Z72.0 Tobacco use; Z95.5 Presence of coronary angioplasty implant and graft
CPT/HCPCS: 36415; 80048; 80061; 80076; 84439; 84443; 85025

== ENCOUNTER → 2019-11-03 14:12 | Outpatient (CLI) | payer MEDICARE, SELFPAY ==
[2019-11-03 15:34] LABS: Anion Gap 15.6 mEq/L (5-15); Blood Urea Nitrogen 20 mg/dL (7-18); Calcium 9.6 mg/dL (8.5-10.1); Carbon Dioxide 29 mmol/L (21.0-32.0); Chloride 102 mmol/L (98-107); Creatinine,Serum 0.99 mg/dL (0.55-1.02); Estimated Glomerular Filt Rate 56 ml/min (>60); GFR (African American) 68 ML/MIN (>60); Glucose 198 mg/dL (74-106); Potassium 4.6 mmoL/L (3.5-5.1); Sodium 142 mmol/L (137-145)
== END ==
PROVIDERS: Visit Provider Nurse Practitioner Family
DX: I25.118 Atherosclerotic heart disease of native coronary artery with other forms of angina pectoris (principal); I73.9 Peripheral vascular disease, unspecified; J43.9 Emphysema, unspecified; R06.09 Other forms of dyspnea; Z72.0 Tobacco use; Z95.5 Presence of coronary angioplasty implant and graft
CPT/HCPCS: 36415; 80048

== ENCOUNTER → 2020-03-30 07:23 | Outpatient (CLI) | payer MEDICARE, SELFPAY ==
[2020-03-30 07:50] LABS: Basophils # 0.1 K/mm3 (0-0.2); Basophils % 0.8 % (0.1-2.0); Eosinophils # 0.4 K/mm3 (0.0-0.4); Eosinophils % 4.9 % (0.1-12.0); Hematocrit 47.6 % (37.0-47.0); Lymphocytes # 3.1 K/mm3 (0.7-4.5); Lymphocytes % 35.6 % (10-50); Mean Corpuscular HGB Conc 33.5 g/dL (31.8-35.4); Mean Corpuscular Hemoglobin 33.2 pg (27.0-31.2); Mean Corpuscular Volume 98.9 fl (81-99); Mean Platelet Volume 8.2 fl (7.4-10.4); Monocytes # 0.6 K/mm3 (0.1-1.0); Monocytes % 6.6 % (1.7-9.3); Neutrophils # 4.5 K/mm3 (1.8-7.8); Neutrophils % 52.1 % (37.0-80.0); Platelet Count 260 K/mm3 (142-424); Red Blood Count 4.82 M/mm3 (4.20-5.40); White Blood Count 8.6 K/mm3 (4.8-10.8)
[2020-03-30 07:59] LABS: Creatinine,Urine Random 142 mg/dL (Not Estab.)
[2020-03-30 08:03] LABS: Hemoglobin A1C 6.6 % (4.0-6.0); Microalbumin/Creatinine Ratio 5.1
[2020-03-30 08:58] LABS: Chloride 99 mmol/L (98-107)
[2020-03-30 08:59] LABS: Potassium 4.3 mmoL/L (3.5-5.1); Sodium 141 mmol/L (136-145)
[2020-03-30 09:01] LABS: Alanine Aminotransferase 16 U/L (12-78); Alkaline Phosphatase 78 U/L (38-126); Anion Gap 15.3 mEq/L (5-15); Aspartate Amino Transferase 20 U/L (14-36); Bilirubin,Total 0.6 mg/dl (0.2-1.3); Blood Urea Nitrogen 20 mg/dl (7-17); Carbon Dioxide 31 mmol/L (22.0-30.0); Estimated Glomerular Filt Rate 56 ml/min (>60); GFR (African American) 68 ML/MIN (>60)
[2020-03-30 09:02] LABS: Albumin Level 4.4 g/dl (3.5-5.0); Albumin/Globulin Ratio 1.6 (1.1-1.8); Chol/HDL Ratio 3.6 (1-3.5); Cholesterol 124 mg/dl (140-200); Globulin 2.7 g/dL (1.3-3.2); Glucose 127 mg/dl (74-100); HDL Cholesterol 34 mg/dl (40-60); Total Protein,Serum 7.1 g/dl (6.3-8.2); Triglycerides 128 mg/dl (30-150); VLDL Cholesterol 26 mg/dL (0-40)
[2020-03-30 09:13] LABS: Direct LDL Cholesterol 79.13 mg/dL (100-129)
[2020-03-31 15:27] LABS: Vitamin B12 723 pg/mL (232-1245)
== END ==
PROVIDERS: Visit Provider Internal Medicine Adolescent Medicine
DX: E53.8 Deficiency of other specified B group vitamins (principal); E11.9 Type 2 diabetes mellitus without complications; Z79.84 Long term (current) use of oral hypoglycemic drugs
CPT/HCPCS: 36415; 80053; 80061; 82043; 82570; 82607; 83036; 85025

== ENCOUNTER → 2020-06-09 17:05 | Outpatient (CLI) | payer MEDICARE, SELFPAY ==
[2020-06-09 18:33] LABS: Coronavirus 19 IgG Antibody Negative (Negative); Coronavirus 19 IgM Antibody Negative (Negative)
== END ==
PROVIDERS: Visit Provider Internal Medicine Gastroenterology
DX: Z01.89 Encounter for other specified special examinations (principal); Z12.11 Encounter for screening for malignant neoplasm of colon
CPT/HCPCS: 36415; 86328

== ENCOUNTER 2020-06-11 07:00 | Day surgery (SDC) | payer MEDICARE, SELFPAY ==
[2020-06-03 14:11] VITALS: BMI 28.7
[2020-06-11] VITALS (7 sets, daily range): BP systolic 89–125; BP diastolic 46–71; PULSE 69–76; RESP 18–20; TEMP 36.8–37; O2SAT 92
[2020-06-11 07:34] LABS: POC Glucose,Bedside 149 (70-110)
--- NOTE | 2020-06-11 07:52 | P.PN_ITS ---
[facility] Anesthesia Checklist - Patient Identification Patient Identification: Arm Band - Structural Data Admitted From: Home Planned Operative Procedure/s: colonoscopy Consent for Planned Operative Procedure(s) Verified: Yes Verified Documents: Surgical Consent, History and Physical - NPO Status Verified Time NPO: 00:00 - Additional verifications Anesthesia Reactions: No Hx Blood Transfusions: No Blood Transfusion Reaction: No - Airway Assessment C-Spine Mobility Assessed: Yes (mp2) TMJ Mobility Assessed: Yes Dentition: Dentures-good fit - Neurological Assessment Level of Consciousness: Awake, Alert - Anesthesia Plan Anesthesia Risk discussed: Yes Anesthesia Plan: Verified ASA Class: III Anesthesia Type: MAC [facility] History I have reviewed the patient's past medical history: Yes Medical History: Reports:: Cancer (lung), Chronic Obstructive Pulmonary Disease (COPD), Coronary Artery Disease, Cerebrovascular Accident, Diabetes Mellitus Type 2, Hyperlipidemia, Hypertension, Myocardial Infarction Denies:: Diabetes Mellitus Type 1, Internal Pacemaker, MRSA, Seizures *Have you ever received a pneumonia vaccine?: No *Have you received a flu vaccine this season?: Yes Other Medical History: Denies: Blood Transfusion Reaction Anesthesia experience/problems:: nac Laterality Cases: Bilateral: Tonsillectomy Other Surgeries: Yes: Cardiac Catheterization, Coronary Stent, Hysterectomy- Total. No: Pacemaker Amputation: No Fractures: No - *Social History Last grade of school completed: High school graduate Smoking Status: Current every day smoker Tobacco Type: cigarettes # Packs/Day (cigarettes): 2 #Yrs smoked (if former smoker): 45 Alcohol Intake: never Alcohol Intake Frequency:: other Substance Use Type: denies use *Occupational Status:: disabled Housing: house Household Members: spouse *Travel in the last 8 weeks: None Family Hx:: Diabetes, Hypertension, Heart Attack, Coronary Artery Disease, Hyperlipidemia
--- NOTE | 2020-06-11 08:11 | HMH.PROC ---
[facility] Procedure Note Procedure Note:: Colonoscopy Procedure Report: Colonoscopy with cold snare polypectomy Endoscopist: Joshua Zuniga II, MD Referring physician: Anselmo Montana M.D. Date of Procedure: June 11, 2020 Equipment: Olympus 180 variable stiffness pediatric colonoscope Sedation: MAC sedation Indication: Mrs. Rivers is a 64-year-old female who is here for follow-up screening/surveillance colonoscopy. She does have a personal history of colon polyps and strong family history of colon cancer. Her last colonoscopy was in 2013 at which time a single tubular adenoma was removed. She was given 5-year surveillance interval. The patient does state that her father had colon cancer in his 40s. She has had several polyps removed at a colonoscopy prior to her last one. She has had some weight loss since the passing of her . She does get some intermittent diarrhea. She reports no abdominal pain or rectal bleeding. She reports no change in her bowel habits. Procedure: Prior to the procedure, a history and physical exam was performed, and patient's medications and allergies were reviewed. The risks, benefits and alternatives of the sedation and procedure were discussed with the patient. All questions were answered and informed consent was obtained. The patient was brought to the procedure room. Patient identification and proposed procedure were verified by the physician and the nurse. The patient was placed in a left lateral decubitus position and the scope was passed under direct vision. Throughout the procedure, the patient's blood pressure, pulse, and oxygen saturations were monitored continuously. The colonoscopy was accomplished without difficulty. The patient tolerated the procedure well. Findings: On digital rectal examination there was normal rectal tone. There were no external hemorrhoids. The colonoscope was introduced through the anal canal to the rectum and advanced to the cecum. The ileocecal valve and appendiceal orifice were identified. The scope was advanced a short distance into the ileum which appeared grossly normal. The scope was then withdrawn into the colon. The cecum, ascending and transverse colon and mucosa were grossly normal. There were 2 polyps (descending x1 (4 mm) and sigmoid x1 (5 mm)) both removed via cold snare polypectomy. There were scattered diverticuli throughout the descending and sigmoid colon (LEFT colon). The rectum itself was normal. Upon retroflexion within the rectum there were grade 1-2 internal hemorrhoids. The preparation was excellent throughout with Eldridge Preparation Score of 9. The cecal time was 12 minutes. Impression: 1. Diminutive colonic polyps x2 2. Left-sided diverticulosis 3. Grade 1-2 internal hemorrhoids Plan: I will follow up the polyp pathology and recommend repeat colonoscopy again in 5 years based upon the patient's strong family history and present polyp histology. I would encourage fiber supplementation on a long-term daily maintenance basis.
== END 2020-06-11 09:29 | disposition home or self-care (01) ==
LOC: OUTP 07:01
PROVIDERS: PCP Internal Medicine Adolescent Medicine; Visit Provider Internal Medicine Gastroenterology
PROC: 0DJD8ZZ Inspection of Lower Intestinal Tract, Via Natural or Artificial Opening Endoscopic (ICD-10-PCS; CPT 45378; principal; 2020-06-11 08:00)
DX: Z12.11 Encounter for screening for malignant neoplasm of colon (principal); Z86.010 Personal history of colon polyps; Z80.0 Family history of malignant neoplasm of digestive organs; K63.5 Polyp of colon; K57.30 Diverticulosis of large intestine without perforation or abscess without bleeding; K64.0 First degree hemorrhoids; J44.9 Chronic obstructive pulmonary disease, unspecified; I25.10 Atherosclerotic heart disease of native coronary artery without angina pectoris; E11.9 Type 2 diabetes mellitus without complications; I10 Essential (primary) hypertension; E78.5 Hyperlipidemia, unspecified; Z85.118 Personal history of other malignant neoplasm of bronchus and lung
CPT/HCPCS: 45385; 82962; 88305

== ENCOUNTER → 2020-12-03 08:49 | Outpatient (CLI) | payer MEDICARE, SELFPAY ==
--- NOTE | 2020-12-03 08:56 | MM_ITS ---
PROCEDURE: MM DIG SCREENING MAMM BI W/CAD Digital Breast Tomosynthesis Included CLINICAL INDICATION: SCREENING There is history of breast cancer in the patient's maternal great COMPARISON: MG DMSB DIG MAMM-SCREEN GWEN from 09/01/2016 MG SCBI MM Dig screening mamm BI w/CAD from 10/25/2017 MG MM DIG SCREENING MAMM BI W/CAD from 04/25/2019 TECHNIQUE: Standard CC and MLO images and 3D Tomosynthesis was obtained. R2 CAD reviewed. FINDINGS: Mild to moderate scattered fibroglandular densities are seen in both breast and the findings are bilateral and symmetrical. There are no CAD markings. There is no suspicious lesion in either breast and no suspicious microcalcifications. IMPRESSION: Fibrofatty parenchyma with no suspicious lesions seen BI-RAD Category: 1 Negative FOLLOW-UP: 1YR 1 Year Follow-up (A letter has been sent to the patient regarding results of the study.) Dictated by: Dr. Chucky Hobbs MD 12/07/2020 10:28 Dr. Chucky Hobbs MD in [place] 12/07/2020 10:28
--- NOTE | 2020-12-03 08:56 | XR_ITS ---
PROCEDURE: XR DEXA AXIAL SKELETON CLINICAL HISTORY: OSTEOPENIA AFTER MENOPAUSE COMPARISON: CR DEXAAX XR DEXA axial skeleton from 10/25/2017 FINDINGS: The right hip BMD is 0.59 with a T-score of -2.3. The left hip BMD is 0.708 with a T-score of -1.3. The lumbar spine BMD is 1.12 with a T-score of 0.7. IMPRESSION: This patient is considered osteopenic according to the World Health Organization criteria. Bone density is between 10 and 25 percent below young normal. Fracture risk is moderate. Treatment is advised. Based on these results a follow-up exam is recommended in 2 year. Dictated by: Luca Lacy MD 12/04/2020 09:10 Luca Lacy MD in [place] 12/04/2020 09:10
[2020-12-03 09:16] LABS: Basophils # 0.1 K/mm3 (0-0.2); Basophils % 0.9 % (0.1-2.0); Eosinophils # 0.4 K/mm3 (0.0-0.4); Eosinophils % 5.2 % (0.1-12.0); Hematocrit 47.9 % (37.0-47.0); Lymphocytes # 2.9 K/mm3 (0.7-4.5); Lymphocytes % 33.5 % (10-50); Mean Corpuscular HGB Conc 33.3 g/dL (31.8-35.4); Mean Corpuscular Hemoglobin 32.3 pg (27.0-31.2); Mean Corpuscular Volume 97.1 fl (81-99); Mean Platelet Volume 8.1 fl (7.4-10.4); Monocytes # 0.6 K/mm3 (0.1-1.0); Monocytes % 6.7 % (1.7-9.3); Neutrophils # 4.6 K/mm3 (1.8-7.8); Neutrophils % 53.7 % (37.0-80.0); Platelet Count 286 K/mm3 (142-424); Red Blood Count 4.94 M/mm3 (4.20-5.40); Red Cell Distribution Width 13.5 % (11.5-17.5); White Blood Count 8.5 K/mm3 (4.8-10.8)
[2020-12-03 09:34] LABS: Alanine Aminotransferase 21 U/L (12-78); Albumin Level 4.4 g/dl (3.5-5.0); Albumin/Globulin Ratio 1.7 (1.1-1.8); Alkaline Phosphatase 88 U/L (38-126); Anion Gap 13.1 mEq/L (5-15); Aspartate Amino Transferase 20 U/L (14-36); Bilirubin,Total 0.4 mg/dl (0.2-1.3); Blood Urea Nitrogen 16 mg/dl (7-17); Calcium 9.9 mg/dl (8.4-10.2); Carbon Dioxide 27 mmol/L (22.0-30.0); Chloride 106 mmol/L (98-107); Chol/HDL Ratio 3.8 (1-3.5); Cholesterol 133 mg/dl (140-200); Estimated Glomerular Filt Rate 56 ml/min (>60); GFR (African American) 67 ML/MIN (>60); Globulin 2.6 g/dL (1.3-3.2); Glucose 149 mg/dl (74-100); HDL Cholesterol 35 mg/dl (40-60); Potassium 5.1 mmoL/L (3.5-5.1); Sodium 141 mmol/L (136-145); Triglycerides 112 mg/dl (30-150); VLDL Cholesterol 22 mg/dL (0-40)
[2020-12-03 09:45] LABS: Direct LDL Cholesterol 77.65 mg/dL (100-129)
[2020-12-03 10:23] LABS: Vitamin B12 775 pg/mL (239-931)
[2020-12-03 10:36] LABS: Hemoglobin A1C 6.7 % (4.0-6.0)
== END ==
PROVIDERS: PCP Internal Medicine Adolescent Medicine; Visit Provider Nurse Practitioner Family
DX: Z12.31 Encounter for screening mammogram for malignant neoplasm of breast (principal); Z78.0 Asymptomatic menopausal state; M85.89 Other specified disorders of bone density and structure, multiple sites; I10 Essential (primary) hypertension; E78.5 Hyperlipidemia, unspecified; R73.9 Hyperglycemia, unspecified
CPT/HCPCS: 36415; 77063; 77067; 77080; 80053; 80061; 82607; 83036; 85025

== ENCOUNTER → 2021-08-18 07:55 | Outpatient (CLI) | payer MEDICARE, SELFPAY ==
[2021-08-18 08:36] LABS: Basophils # 0.1 K/mm3 (0-0.2); Basophils % 0.8 % (0.1-2.0); Eosinophils # 0.4 K/mm3 (0.0-0.4); Eosinophils % 4.8 % (0.1-12.0); Hematocrit 44.9 % (37.0-47.0); Hemoglobin 15.1 g/dL (12.2-16.2); Lymphocytes # 2.7 K/mm3 (0.7-4.5); Lymphocytes % 36.2 % (10-50); Mean Corpuscular HGB Conc 33.7 g/dL (31.8-35.4); Mean Corpuscular Hemoglobin 32.7 pg (27.0-31.2); Mean Corpuscular Volume 97.2 fl (81-99); Mean Platelet Volume 8.4 fl (7.4-10.4); Monocytes # 0.7 K/mm3 (0.1-1.0); Monocytes % 9.3 % (1.7-9.3); Neutrophils # 3.7 K/mm3 (1.8-7.8); Neutrophils % 48.9 % (37.0-80.0); Platelet Count 278 K/mm3 (142-424); Red Blood Count 4.62 M/mm3 (4.20-5.40); Red Cell Distribution Width 13.4 % (11.5-17.5); White Blood Count 7.5 K/mm3 (4.8-10.8)
[2021-08-18 08:56] LABS: Creatinine,Urine Random 74 mg/dL (Not Estab.); Microalbumin < 6.000 mg/L (0-16.7)
[2021-08-18 09:22] LABS: Hemoglobin A1C 6.7 % (4.0-6.0)
[2021-08-18 10:04] LABS: Alanine Aminotransferase 10 U/L (12-78); Albumin Level 4.1 g/dl (3.5-5.0); Albumin/Globulin Ratio 1.6 (1.1-1.8); Alkaline Phosphatase 72 U/L (38-126); Aspartate Amino Transferase 20 U/L (14-36); Bilirubin,Total 0.5 mg/dl (0.2-1.3); Blood Urea Nitrogen 18 mg/dl (7-17); Calcium 9.7 mg/dl (8.4-10.2); Carbon Dioxide 29 mmol/L (22.0-30.0); Chloride 105 mmol/L (98-107); Chol/HDL Ratio 3.5 (1-3.5); Cholesterol 118 mg/dl (140-200); Estimated Glomerular Filt Rate 55 ml/min (>60); GFR (African American) 67 ML/MIN (>60); Globulin 2.5 g/dL (1.3-3.2); Glucose 108 mg/dl (74-100); HDL Cholesterol 34 mg/dl (40-60); Sodium 139 mmol/L (136-145); Total Protein,Serum 6.6 g/dl (6.3-8.2); Triglycerides 93 mg/dl (30-150); VLDL Cholesterol 19 mg/dL (0-40)
[2021-08-18 10:15] LABS: Direct LDL Cholesterol 72.82 mg/dL (100-129)
[2021-08-18 10:57] LABS: Vitamin B12 888 pg/mL (239-931)
== END ==
PROVIDERS: Visit Provider Nurse Practitioner Family
DX: E11.9 Type 2 diabetes mellitus without complications (principal); E78.2 Mixed hyperlipidemia; E53.8 Deficiency of other specified B group vitamins; Z79.84 Long term (current) use of oral hypoglycemic drugs
CPT/HCPCS: 36415; 80053; 80061; 82043; 82570; 82607; 83036; 85025

== ENCOUNTER → 2021-09-13 09:52 | Outpatient (CLI) | payer MEDICARE, SELFPAY ==
--- NOTE | 2021-09-13 10:11 | XR_ITS ---
PROCEDURE INFORMATION: Exam: XR Right Elbow Exam date and time: 09/13/2021 10:11 AM Age: 66 years old Clinical indication: Pain; Elbow; Right; Additional info: Rivero, fall right rib pain TECHNIQUE: Imaging protocol: XR Right elbow. Views: 3 or more views. COMPARISON: No relevant prior exams. FINDINGS: Bones/joints: Minimal to mild narrowing of the joint spaces. Mild degenerative osteophytosis. No fractures or dislocations. Soft tissues: Normal. No swelling or abnormal density. IMPRESSION: 1. No fractures or dislocations. 2. Mild degenerative osteoarthritis.
--- NOTE | 2021-09-13 10:11 | XR_ITS ---
PROCEDURE INFORMATION: Exam: XR Chest Exam date and time: 09/13/2021 10:11 AM Age: 66 years old Clinical indication: Dyspnea and shortness of breath; Additional info: Rivero TECHNIQUE: Imaging protocol: XR of the chest. Views: 2 views. COMPARISON: DX CXR2V XR chest 2V 05/13/2018 11:34 AM FINDINGS: Lungs: Pulmonary hyperexpansion, similar to previous. No pulmonary infiltrate or consolidation. Pleural spaces: Unremarkable. No pleural effusion. No pneumothorax. Heart/Mediastinum: Unremarkable. No cardiomegaly. Bones/joints: Unremarkable. IMPRESSION: 1. No acute cardiopulmonary disease. 2. Chronic obstructive pulmonary disease.
[2021-09-13 10:52] LABS: Basophils # 0.1 K/mm3 (0-0.2); Eosinophils # 0.4 K/mm3 (0.0-0.4); Eosinophils % 4.2 % (0.1-12.0); Lymphocytes # 2.3 K/mm3 (0.7-4.5); Lymphocytes % 24.8 % (10-50); Mean Corpuscular HGB Conc 32.6 g/dL (31.8-35.4); Mean Corpuscular Hemoglobin 32.3 pg (27.0-31.2); Mean Corpuscular Volume 99.2 fl (81-99); Mean Platelet Volume 8.9 fl (7.4-10.4); Monocytes # 0.7 K/mm3 (0.1-1.0); Monocytes % 7.3 % (1.7-9.3); Neutrophils # 5.7 K/mm3 (1.8-7.8); Neutrophils % 62.7 % (37.0-80.0); Platelet Count 264 K/mm3 (142-424); Red Blood Count 4.64 M/mm3 (4.20-5.40); Red Cell Distribution Width 13.5 % (11.5-17.5); White Blood Count 9.1 K/mm3 (4.8-10.8)
[2021-09-13 11:19] LABS: Alanine Aminotransferase 19 U/L (12-78); Albumin Level 4.2 g/dl (3.5-5.0); Albumin/Globulin Ratio 1.7 (1.1-1.8); Alkaline Phosphatase 85 U/L (38-126); Anion Gap 15.9 mEq/L (5-15); Aspartate Amino Transferase 22 U/L (14-36); Bilirubin,Total 0.4 mg/dl (0.2-1.3); Blood Urea Nitrogen 24 mg/dl (7-17); Calcium 9.7 mg/dl (8.4-10.2); Carbon Dioxide 26 mmol/L (22.0-30.0); Chloride 101 mmol/L (98-107); Estimated Glomerular Filt Rate 50 ml/min (>60); GFR (African American) 60 ML/MIN (>60); Globulin 2.5 g/dL (1.3-3.2); Glucose 183 mg/dl (74-100); Potassium 4.9 mmoL/L (3.5-5.1); Sodium 138 mmol/L (136-145); Total Protein,Serum 6.7 g/dl (6.3-8.2)
[2021-09-13 11:30] LABS: NT Pro Brain Natriuretic Pep. 362 pg/mL (0-125)
== END ==
PROVIDERS: PCP Internal Medicine Adolescent Medicine; Visit Provider Internal Medicine Adolescent Medicine
DX: R06.09 Other forms of dyspnea (principal); M25.521 Pain in right elbow
CPT/HCPCS: 36415; 71046; 73080; 80053; 83880; 85025

== ENCOUNTER → 2021-10-26 17:03 | Outpatient (CLI) | payer MEDICARE, SELFPAY ==
--- NOTE | 2021-10-26 17:10 | XR_ITS ---
PROCEDURE INFORMATION: Exam: XR Right Elbow Exam date and time: 10/26/2021 5:10 PM Age: 66 years old Clinical indication: Condition or disease; Cellulitis; Elbow; Right; Additional info: Cellulitis of right elbow TECHNIQUE: Imaging protocol: XR Right elbow. Views: 3 or more views. COMPARISON: CR XR ELBOW RT MIN 3V 09/13/2021 10:14 AM FINDINGS: Bones/joints: No significant elbow joint effusion. Medial epicondyle enthesopathy. No acute fracture or malalignment. No evidence of osteolysis. Soft tissues: Soft tissue edema noted over the olecranon. No subcutaneous emphysema. IMPRESSION: 1. No acute osseous abnormality in the right elbow. 2. Medial epicondyle enthesopathy.
[2021-10-26 17:39] LABS: Basophils # 0.4 K/mm3 (0-0.2); Basophils % 3.3 % (0.1-2.0); Eosinophils # 0.4 K/mm3 (0.0-0.4); Eosinophils % 3.5 % (0.1-12.0); Hemoglobin 14.5 g/dL (12.2-16.2); Lymphocytes # 2.3 K/mm3 (0.7-4.5); Lymphocytes % 20.6 % (10-50); Mean Corpuscular HGB Conc 32.2 g/dL (31.8-35.4); Mean Corpuscular Volume 99.5 fl (81-99); Mean Platelet Volume 8.6 fl (7.4-10.4); Monocytes % 8.7 % (1.7-9.3); Neutrophils % 63.9 % (37.0-80.0); Platelet Count 261 K/mm3 (142-424); Red Blood Count 4.52 M/mm3 (4.20-5.40); Red Cell Distribution Width 13.5 % (11.5-17.5)
[2021-10-26 18:31] LABS: Alanine Aminotransferase 18 U/L (12-78); Albumin Level 4.6 g/dl (3.5-5.0); Albumin/Globulin Ratio 1.8 (1.1-1.8); Alkaline Phosphatase 82 U/L (38-126); Anion Gap 16.6 mEq/L (5-15); Aspartate Amino Transferase 19 U/L (14-36); Bilirubin,Total 0.4 mg/dl (0.2-1.3); Blood Urea Nitrogen 34 mg/dl (7-17); Carbon Dioxide 24 mmol/L (22.0-30.0); Chloride 102 mmol/L (98-107); Estimated Glomerular Filt Rate 45 ml/min (>60); GFR (African American) 54 ML/MIN (>60); Globulin 2.5 g/dL (1.3-3.2); Glucose 94 mg/dl (74-100); Potassium 4.6 mmoL/L (3.5-5.1); Sodium 138 mmol/L (136-145); Total Protein,Serum 7.1 g/dl (6.3-8.2)
[2021-10-26 18:37] LABS: C-Reactive Protein 49.1 mg/L (0-4)
[2021-10-26 18:43] LABS: Erythrocyte Sedimentation Rate 19 mm/hr (0-30)
== END ==
PROVIDERS: PCP Internal Medicine Adolescent Medicine; Visit Provider Internal Medicine Adolescent Medicine
DX: L03.113 Cellulitis of right upper limb (principal)
CPT/HCPCS: 36415; 73080; 80053; 85025; 85651; 86140

== ENCOUNTER → 2022-05-03 10:34 | Outpatient (CLI) | payer MEDICARE, SELFPAY ==
[2022-05-03 11:02] LABS: Basophils # 0.1 K/mm3 (0-0.2); Eosinophils # 0.5 K/mm3 (0.0-0.4); Eosinophils % 5.7 % (0.1-12.0); Hemoglobin 14.3 g/dL (12.2-16.2); Lymphocytes # 2.2 K/mm3 (0.7-4.5); Lymphocytes % 24.2 % (10-50); Mean Corpuscular HGB Conc 30.5 g/dL (31.8-35.4); Mean Corpuscular Volume 104.7 fl (81-99); Mean Platelet Volume 8.5 fl (7.4-10.4); Monocytes # 0.7 K/mm3 (0.1-1.0); Monocytes % 7.2 % (1.7-9.3); Neutrophils # 5.7 K/mm3 (1.8-7.8); Neutrophils % 61.9 % (37.0-80.0); Platelet Count 305 K/mm3 (142-424); Red Blood Count 4.49 M/mm3 (4.20-5.40); White Blood Count 9.2 K/mm3 (4.8-10.8)
[2022-05-03 11:10] LABS: Anion Gap 11.9 mEq/L (5-15); Blood Urea Nitrogen 24 mg/dl (7-17); Calcium 9.7 mg/dl (8.4-10.2); Carbon Dioxide 28 mmol/L (22.0-30.0); Chloride 101 mmol/L (98-107); Estimated Glomerular Filt Rate 45 ml/min (>60); GFR (African American) 54 ML/MIN (>60); Glucose 164 mg/dl (74-100); Potassium 4.9 mmoL/L (3.5-5.1); Sodium 136 mmol/L (136-145)
== END ==
PROVIDERS: PCP Internal Medicine Adolescent Medicine; Visit Provider Physician Assistant
DX: E78.5 Hyperlipidemia, unspecified (principal); I25.10 Atherosclerotic heart disease of native coronary artery without angina pectoris; I73.9 Peripheral vascular disease, unspecified; I77.1 Stricture of artery; J44.9 Chronic obstructive pulmonary disease, unspecified; R06.00 Dyspnea, unspecified; Z72.0 Tobacco use; Z95.5 Presence of coronary angioplasty implant and graft; Z01.812 Encounter for preprocedural laboratory examination; Z20.822 Contact with and (suspected) exposure to COVID-19
CPT/HCPCS: 36415; 80048; 85025; C9803; U0003; U0005

== ENCOUNTER 2022-05-04 08:23 | Day surgery (SDC) | payer MEDICARE, SELFPAY ==
[2022-05-04] VITALS (16 sets, daily range): BP systolic 83–161; BP diastolic 40–85; PULSE 63–86; RESP 16–20; TEMP 36.7; O2SAT 90–100; BMI 30.5
--- NOTE | 2022-05-04 | IR_ITS ---
APPROVED REPORT Patient Location: Outpatient Serials Librarian: BERTHA Dumont RT (R) PROCEDURES Left heart catheterization Left ventriculogram Selective coronary angiogram Drug-eluting stent deployment to the ostial proximal mid distal left main artery Informed consent was obtained prior to the procedure. COMPLICATIONS None Estimated Blood Loss: Less than 10 mls TECHNIQUE One percent lidocaine was used to anesthetize the right groin. The right femoral artery was accessed via the Seldinger technique. A 4-Bahamian sheath was placed in the right femoral artery. The JL-4 and JR-4 catheter was also used to perform left heart catheterization left ventriculogram and selective coronary angiogram. At the end the diagnostic procedure therapeutic heparin was administered and the 4 Bahamian sheath was exchanged for a 6 Bahamian sheath. A JL 4 guide catheter was placed in the left main artery followed by a Choice PT extra-support wire. A 4 mm x 12 mm resolute [place] stent was deployed at 24 vickie in the ostial proximal segment of the left main artery. I was not satisfied with the angiographic results therefore a 4.5 x 12 mm resolute [place] stent was then deployed slightly distal to the first stent completely covering the lesion and then deployed at 20 vickie. The balloon was brought back and deployed at 24 vickie in the ostium. KEITH-3 flow was present before and after the procedure. At the end the procedure the apparatus was removed the groin is reprepped closure change sheath was removed and hemostasis was achieved and TR banding patient was transferred to the postop putting in stable condition ANGIOGRAPHIC RESULTS The left main artery Has an ostial 50% stenosis followed by an additional 60 to 70% stenosis The left anterior descending artery Has a stent in the ostial segment which is widely patent free of in-stent restenosis with excellent distal transitioning. The remaining LAD is widely patent The circumflex artery Nondominant left with mild atheromatous plaque The right coronary artery Large dominant vessel with stents in the proximal mid and distal segment which are widely patent with minimal in-stent restenosis. The posterior lateral branch has mid vessel 70 and 80% stenosis in an area that is 2.25 mm in diameter The BOOTH ventriculogram reveals Preserved 50% The left ventricular end-diastolic pressure 10 mmHg IMPRESSION Severe ostial mid left main disease as described above Successful stenting of the ostial proximal mid distal left main artery reducing the stenosis to less than 10% giving excellent angiograph results Preserved ejection fraction Normal left ventricular end-diastolic pressure Persistent stenosis in a large posterior lateral branch which is best managed medically PLAN 1. Dual antiplatelet therapy 2. Avoidance of tobacco products 3. Risk factor modification 4. Cardiac rehabilitation 5. LDL less than 55 to be achieved with high intensity statin Electronically signed by : Yoel Garcia MD 05/04/2022 12:11:42
[2022-05-04 10:40] LABS: CATHL Activated Clotting Time 305 SEC (74-125)
--- NOTE | 2022-05-04 14:48 | HMH.PHACLD ---
Carolina Rivers has received discharge medication counseling on the following medications: PATIENT IS CURRENTLY TAKING ASPIRIN EC 81 MG DAILY, ATENOLOL 25 MG DAILY, ATORVASTATIN 20 MG HS, AND CLOPIDOGREL 75 MG DAILY. MD NOT STARTING JEFF/ARB AT THIS TIME DUE TO HYPOTENSION TODAY.
== END 2022-05-04 14:42 | disposition home or self-care (01) ==
LOC: CATHLAB 08:26
PROVIDERS: PCP Internal Medicine Adolescent Medicine; Visit Provider Internal Medicine
DX: R06.02 Shortness of breath (principal); I11.9 Hypertensive heart disease without heart failure; Z79.84 Long term (current) use of oral hypoglycemic drugs; I25.118 Atherosclerotic heart disease of native coronary artery with other forms of angina pectoris; F17.210 Nicotine dependence, cigarettes, uncomplicated; J43.9 Emphysema, unspecified; Z79.899 Other long term (current) drug therapy
CPT/HCPCS: 85347; 92928; 93458; 94640; 99152; 99153; C1725; C1760; C1769; C1876; C9600; J1644; Q9967

== ENCOUNTER 2022-06-16 09:50 | Emergency (ER) | payer MEDICARE, SELFPAY ==
[2022-06-16 09:53] VITALS: BP 111/54; PULSE 77; RESP 18; TEMP 36.6; O2SAT 94; BMI 29.2
[2022-06-16 10:00] VITALS: BP 111/54; PULSE 70; O2SAT 95
--- NOTE | 2022-06-16 10:22 | PC.NURSE ---
GOT PT A BLANKET, NOTHING ELSE WAS NEEDED
--- NOTE | 2022-06-16 10:22 | PC.NURSE ---
ZHENG ELDER at
[2022-06-16 10:26] LABS: Chloride 98 mmol/L (98-107)
[2022-06-16 10:27] LABS: Potassium 4.8 mmoL/L (3.5-5.1); Sodium 138 mmol/L (136-145)
--- NOTE | 2022-06-16 10:27 | XR_ITS ---
FINAL REPORT CLINICAL HISTORY: pain, swelling FINDINGS: Left foot Three views were obtained. There is no acute fracture or dislocation. The joint spaces appear normal. There are bulky dystrophic calcifications in the distal Achilles tendon consistent with chronic tendinitis or chronic tear. Plantar calcaneal spurring is identified. IMPRESSION: No acute bony abnormality. Achilles calcifications with potential causes as above. Reviewed, Interpreted and Dictated by Callum Armas MD Transcribed by Imani Cortez Authenticated and . [facility]
--- NOTE | 2022-06-16 10:27 | XR_ITS ---
FINAL REPORT CLINICAL HISTORY: pain, swelling FINDINGS: Right foot Three views were obtained. There is no acute fracture or dislocation. There are mild degenerative changes of the 1st metatarsophalangeal joint. Large plantar and posterior calcaneal spurs are identified. No soft tissue abnormality is identified. IMPRESSION: No acute process. Reviewed, Interpreted and Dictated by Callum Armas MD Transcribed by Imani Cortez Authenticated and [facility]
[2022-06-16 10:28] LABS: Basophils # 0.3 K/mm3 (0-0.2); Basophils % 2.2 % (0.1-2.0); Eosinophils # 0.2 K/mm3 (0.0-0.4); Eosinophils % 1.8 % (0.1-12.0); Hematocrit 42.9 % (37.0-47.0); Hemoglobin 13.6 g/dL (12.2-16.2); Lymphocytes # 1.2 K/mm3 (0.7-4.5); Lymphocytes % 9.6 % (10-50); Mean Corpuscular HGB Conc 31.7 g/dL (31.8-35.4); Mean Corpuscular Hemoglobin 32.3 pg (27.0-31.2); Mean Platelet Volume 9.5 fl (7.4-10.4); Monocytes # 0.6 K/mm3 (0.1-1.0); Monocytes % 5.3 % (1.7-9.3); Neutrophils # 9.8 K/mm3 (1.8-7.8); Neutrophils % 81.2 % (37.0-80.0); Platelet Count 290 K/mm3 (142-424); Red Blood Count 4.21 M/mm3 (4.20-5.40); Red Cell Distribution Width 13.2 % (11.5-17.5); White Blood Count 12.1 K/mm3 (4.8-10.8)
[2022-06-16 10:29] LABS: Alanine Aminotransferase 17 U/L (12-78); Aspartate Amino Transferase 26 U/L (14-36); Blood Urea Nitrogen 43 mg/dl (7-17); Creatinine Clearance Estimated 40 mL/min (50-200); Estimated Glomerular Filt Rate 32 ml/min (>60); GFR (African American) 39 ML/MIN (>60)
--- NOTE | 2022-06-16 10:29 | HMH.EDGENADL ---
Discharge Plan Disposition Patient Disposition: Home, Self-Care Condition: Good Prescriptions Prescriptions: New prednisone 20 mg tablet 20 mg PO BID Qty: 10 0RF hydrocodone-acetaminophen 5-325 mg tablet 1 tab PO Q6H PRN (Reason: pain) Qty: 10 0RF No Action melatonin 1 mg tablet 2 mg PO HS PRN (Reason: Sleep) ipratropium-albuterol 0.5 mg-3 mg(2.5 mg base)/3 mL solution for nebulization 1 ml IH DAILY Label Comments: USE 1 AMPULE IN NEBULIZER 4 TIMES DAILY metformin 1,000 mg tablet 1,000 mg PO BID 90 Days Qty: 180 Label Comments: clopidogrel 75 mg tablet 75 mg PO DAILY 90 Days Qty: 90 Label Comments: cetirizine 10 mg tablet 10 mg PO DAILY 30 Days Qty: 30 Label Comments: TAKE 1 TABLET ONCE A DAY FOR VERTIGO gabapentin 300 mg capsule 600 mg PO BID 90 Days Qty: 360 Label Comments: meloxicam 15 mg tablet 15 mg PO DAILY 90 Days Qty: 90 Label Comments: atorvastatin 20 mg tablet 20 mg PO DAILY 90 Days Qty: 90 Label Comments: furosemide 40 mg tablet 40 mg PO BID Qty: 60 5RF spironolactone 50 mg tablet 50 mg PO BID Qty: 60 5RF atenolol 25 MG tablet 25 mg PO DAILY escitalopram oxalate 5 MG tablet 5 mg PO DAILY tiotropium bromide 5 CAP capsule, w/inhalation device 2 cap IH DAILY aspirin 81 MG tablet,delayed release (DR/EC) 81 mg PO DAILY fluconazole 200 MG tablet 200 mg PO DAILY Referrals Follow up/Referrals: Anselmo Montana MD [Primary Care Provider] - See instructions Activity Restrictions/Add. Instructions Additional Instructions/Restrictions: Do not take spironolactone or furosemide this weekend. Call Franky on Sunday for further instructions. Prednisone as prescribed. [place] as needed for pain. Rest and elevate feet. Additional instructions for CONTROLLED SUBSTANCES: You have been prescribed a medication that is a controlled substance. Controlled substances include pain medications known as opiates and sedative nerve medications known as benzodiazepines. Tramadol, fioricet, and gabapentin are also controlled substances. Some common opiates include: Codeine (such as Tylenol #3) Hydrocodone (Vicodin, Lortab, Lorcet, [place]) Oxycodone (Percocet, Percodan, Oxycodone, Oxy IR) Some common benzodiazepines include: Diazepam (Valium) Lorazepam (Ativan) Alprazolam (Xanax) Clonazepam (Klonopin) Oxazepam (Serax) All of these controlled substances are highly addictive and frequently abused. Misuse can and frequently does lead to addiction as well as overdose and . Medication should be stored in a locked cabinet or other secure storage unit. Do not store the medication in a motor vehicle. Short term supplies, 3 days or less, are prescribed because of the highly addictive nature of the medication. Any of the controlled substance medication NOT taken should be disposed of properly and NOT SAVED. The recommended method of disposing of unused medications is: Place the medicines in a sealable plastic bag. If the medicine is a solid, crush it or add water to dissolve it. Add something undesirable (cat litter, coffee grounds, etc.) Dispose of sealed bag in household trash Do not flush or pour unused medicines down a sink or drain. Controlled substances should not be shared, given away or sold. Because of the addictive nature and frequent abuse, these medications are sometimes stolen. These medications should be kept in a safe place where they cannot be stolen. Do not keep them in your car or purse. Lost or stolen prescriptions for controlled substances WILL NOT BE REFILLED in this emergency department, regardless of whether a police report was filed. Clinical Impressions Clinical Impression: Gout attack, Acute kidney injury Discharge ED Provider: Eric Espinosa General Adult HPI General Chief complaint: Skin/Abscess/Foreign B
--- NOTE | 2022-06-16 10:29 | PC.NURSE ---
rad at for portable xrays
[2022-06-16 10:30] LABS: Albumin Level 4.2 g/dl (3.5-5.0); Albumin/Globulin Ratio 1.3 (1.1-1.8); Alkaline Phosphatase 101 U/L (38-126); Anion Gap 16.8 mEq/L (5-15); Bilirubin,Total 0.2 mg/dl (0.2-1.3); Calcium 9.1 mg/dl (8.4-10.2); Carbon Dioxide 28 mmol/L (22.0-30.0); Globulin 3.3 g/dL (1.3-3.2); Glucose 220 mg/dl (74-100); Total Protein,Serum 7.5 g/dl (6.3-8.2)
[2022-06-16 10:49] LABS: Uric Acid 12.1 mg/dl (2.5-6.2)
[2022-06-16 11:00] VITALS: BP 111/59; PULSE 71; PULSE 73; O2SAT 93
--- NOTE | 2022-06-16 11:21 | PC.NURSE ---
Dr Espinosa talked to Franky Lua about patient.
[2022-06-16 12:03] VITALS: BP 102/64; PULSE 67; RESP 18; TEMP 36.6; O2SAT 92
== END 2022-06-16 12:03 | disposition home or self-care (01) ==
PROVIDERS: Emergency Provider Emergency Medicine; PCP Internal Medicine Adolescent Medicine
DX: I11.0 Hypertensive heart disease with heart failure (principal); I50.31 Acute diastolic (congestive) heart failure; M79.672 Pain in left foot; M79.671 Pain in right foot; M79.89 Other specified soft tissue disorders; Z20.822 Contact with and (suspected) exposure to COVID-19; I25.10 Atherosclerotic heart disease of native coronary artery without angina pectoris; N17.9 Acute kidney failure, unspecified; I73.9 Peripheral vascular disease, unspecified; E78.5 Hyperlipidemia, unspecified; M10.9 Gout, unspecified; J44.9 Chronic obstructive pulmonary disease, unspecified; F17.210 Nicotine dependence, cigarettes, uncomplicated; Z79.02 Long term (current) use of antithrombotics/antiplatelets; Z79.51 Long term (current) use of inhaled steroids; Z79.52 Long term (current) use of systemic steroids; Z79.82 Long term (current) use of aspirin; Z79.84 Long term (current) use of oral hypoglycemic drugs; Z79.899 Other long term (current) drug therapy; Z95.5 Presence of coronary angioplasty implant and graft
CPT/HCPCS: 73630; 80053; 84550; 85025; 96374; 96375; 99285; J2405

== ENCOUNTER 2022-12-27 09:59 | Observation (INO) | payer MEDICARE, SELFPAY ==
[2022-12-27] VITALS (11 sets, daily range): BP systolic 105–130; BP diastolic 59–90; PULSE 51–91; RESP 17–21; TEMP 36.6–36.9; O2SAT 87–100; BMI 29.2; BMI 30.9
--- NOTE | 2022-12-27 10:05 | ECG_ITS ---
APPROVED REPORT Exam: Resting ECG HR:86 bpm ECG Measurements Heart Rate 86 AXES VA 152 P 80 QRSd 81 QRS 53 QT 388 T -56 QTc 431 Conclusion SINUS RHYTHM WITH FREQUENT VENTRICULAR PREMATURE COMPLEXES NONSPECIFIC T-WAVE ABNORMALITY ABNORMAL ECG UNCONFIRMED REPORT Electronically signed by : Anselmo Montana MD 12/29/2022 09:36:09
--- NOTE | 2022-12-27 10:15 | XR_ITS ---
FINAL REPORT CLINICAL HISTORY: copd exacerbation/CHF/previous cancer COMPARISON: 09/13/2021 FINDINGS: Two views of the chest were obtained. The heart size and pulmonary vascularity are within normal limits. The mediastinum is normal. There is mild scarring/fibrosis. There is no pneumothorax. There are mild degenerative changes in the thoracic spine. IMPRESSION: Mild scarring/fibrosis. Reviewed, Interpreted and Dictated by Thanh Jones III, MD Transcribed by Nirmala Harrison Authenticated and [facility]
--- NOTE | 2022-12-27 10:19 | HMH.EDGENADL ---
Discharge Plan Disposition Patient Disposition: Admitted As Inpatient Condition: Fair Prescriptions Prescriptions: No Action melatonin 1 mg tablet 2 mg PO HS PRN (Reason: Sleep) ipratropium-albuterol 0.5 mg-3 mg(2.5 mg base)/3 mL solution for nebulization 1 ml IH DAILY Label Comments: USE 1 AMPULE IN NEBULIZER 4 TIMES DAILY metformin 1,000 mg tablet 1,000 mg PO BID 90 Days Qty: 180 Label Comments: clopidogrel 75 mg tablet 75 mg PO DAILY 90 Days Qty: 90 Label Comments: cetirizine 10 mg tablet 10 mg PO DAILY 30 Days Qty: 30 Label Comments: TAKE 1 TABLET ONCE A DAY FOR VERTIGO gabapentin 300 mg capsule 600 mg PO BID 90 Days Qty: 360 Label Comments: meloxicam 15 mg tablet 15 mg PO DAILY 90 Days Qty: 90 Label Comments: atorvastatin 20 mg tablet 20 mg PO DAILY 90 Days Qty: 90 Label Comments: spironolactone 50 mg tablet 50 mg PO BID Qty: 60 5RF furosemide 40 mg tablet 40 mg PO BID Qty: 60 5RF atenolol 25 MG tablet 25 mg PO DAILY escitalopram oxalate 5 MG tablet 5 mg PO DAILY tiotropium bromide 5 CAP capsule, w/inhalation device 2 cap IH DAILY aspirin 81 MG tablet,delayed release (DR/EC) 81 mg PO DAILY fluconazole 200 MG tablet 200 mg PO DAILY prednisone 20 mg tablet 20 mg PO BID Qty: 10 0RF hydrocodone-acetaminophen 5-325 mg tablet 1 tab PO Q6H PRN (Reason: pain) Qty: 10 0RF Referrals Follow up/Referrals: Anselmo Montana MD [Primary Care Provider] - See instructions Clinical Impressions Clinical Impression: COPD exacerbation Discharge ED Provider: Dada Grossman General Adult HPI General Chief complaint: Shortness of Breath/Dyspnea Stated complaint: SOA Time Seen by Provider: 12/27/22 10:11 History of Present Illness HPI narrative: Patient is a 67-year-old female with past medical history of COPD on nocturnal 2 L nasal cannula intermittently, CAD status post previous left-sided lung cancer status post chemoradiation which has been stable upon multiple recent evaluations with her primary oncologist who presents emergency department for evaluation of cough and shortness of breath. Onset was acute, over the last week. Patient has been more short of breath than normal, continues to smoke 2 packs/day. Has been compliant with her medications. Afebrile throughout the course. No other acute complaints at this time. Patient has had recent PET scan at [facility] and was told her disease is stable. Patient denies chest pain, acute rashes or arthralgias, other acute complaints. Related Data Home Medications Medication Instructions Recorded Confirmed atorvastatin 20 mg tablet 20 mg PO DAILY Cholesterol 90 days 10/26/17 05/11/22 ##90 cetirizine 10 mg tablet 10 mg PO DAILY allergies 30 days 10/26/17 05/11/22 ##30 clopidogrel 75 mg tablet 75 mg PO DAILY heart. 90 days ##90 10/26/17 05/11/22 gabapentin 300 mg capsule 600 mg PO BID leg pain-RLS 90 days 10/26/17 05/11/22 ##360 meloxicam 15 mg tablet 15 mg PO DAILY Arthritis 90 days 10/26/17 05/11/22 ##90 metformin 1,000 mg tablet 1,000 mg PO BID sugar- type 2 90 10/26/17 05/11/22 days ##180 melatonin 1 mg tablet 2 mg PO HS PRN Sleep 04/24/18 05/11/22 aspirin 81 mg tablet,delayed 81 mg PO DAILY Heart disease 05/06/18 05/11/22 release atenolol 25 mg tablet 25 mg PO DAILY heart rate 06/03/20 05/11/22 escitalopram oxalate 5 mg tablet 5 mg PO DAILY Anxiety 06/03/20 05/11/22 tiotropium bromide 18 mcg capsule 2 cap inhalation DAILY COPD 06/03/20 05/11/22 with inhalation device ipratropium 0.5 mg-albuterol 3 mg 1 ml inhalation DAILY COPD 05/03/22 05/11/22 (2.5 mg base)/3 mL nebulization soln fluconazole 200 mg tablet 200 mg PO DAILY yeast 05/04/22 05/11/22 Previous Rx's Medication Instructions Recorded hydrocodone 5 mg-acetaminophen 325 1 tab PO Q6H PRN pain #10 tabs 06/16
[2022-12-27 10:31] LABS: Basophils # 0.1 K/mm3 (0-0.2); Basophils % 0.5 % (0.1-2.0); Chloride 101 mmol/L (98-107); Eosinophils # 0.1 K/mm3 (0.0-0.4); Eosinophils % 0.8 % (0.1-12.0); Hemoglobin 13.1 g/dL (12.2-16.2); Lymphocytes # 1.3 K/mm3 (0.7-4.5); Lymphocytes % 14.5 % (10-50); Mean Corpuscular HGB Conc 31.9 g/dL (31.8-35.4); Mean Corpuscular Hemoglobin 32.2 pg (27.0-31.2); Mean Platelet Volume 9.5 fl (7.4-10.4); Monocytes # 0.8 K/mm3 (0.1-1.0); Monocytes % 9.1 % (1.7-9.3); Neutrophils # 6.8 K/mm3 (1.8-7.8); Neutrophils % 75.1 % (37.0-80.0); Platelet Count 202 K/mm3 (142-424); Red Blood Count 4.06 M/mm3 (4.20-5.40); Red Cell Distribution Width 15.3 % (11.5-17.5); Sodium 139 mmol/L (136-145); White Blood Count 9.1 K/mm3 (4.8-10.8)
[2022-12-27 10:32] LABS: Potassium 4.3 mmoL/L (3.5-5.1)
[2022-12-27 10:32] LABS: VBG Base Excess 2.7 mmol/L (-2.4-2.3); VBG HCO3 27.3 mmol/L (23-30); VBG Oxygen Saturation 99.2 % (50-70); VBG PCO2 43.7 mmol/L (35-51); VBG PH 7.41 mmol/L (7.31-7.41); VBG PO2 210.5 mmol/L (28-40); VBG Total CO2 28.6 mmol/L (23-27)
[2022-12-27 10:34] LABS: Alanine Aminotransferase 18 U/L (12-78); Alkaline Phosphatase 95 U/L (38-126); Aspartate Amino Transferase 21 U/L (14-36); Bilirubin,Total 0.4 mg/dl (0.2-1.3); Blood Urea Nitrogen 28 mg/dl (7-17); Creatinine Clearance Estimated 48 mL/min (50-200); Estimated Glomerular Filt Rate 41 ml/min (>60); GFR (African American) 49 ML/MIN (>60)
[2022-12-27 10:35] LABS: Albumin/Globulin Ratio 1.4 (1.1-1.8); Anion Gap 13.3 mEq/L (5-15); Calcium 8.9 mg/dl (8.4-10.2); Carbon Dioxide 29 mmol/L (22.0-30.0); Globulin 2.9 g/dL (1.3-3.2); Glucose 214 mg/dl (74-100); Total Protein,Serum 6.9 g/dl (6.3-8.2)
--- NOTE | 2022-12-27 10:37 | PC.NURSE ---
RESP CARE NOTE: Yaima Schuster [employer] Operator notified that VBG results were consistent with Arterial Blood sample.
[2022-12-27 10:47] LABS: Adenovirus,PCR Not Detected (NotDetected); Bordetella Pertussis Not Detected (NotDetected); Chlamydophila Pneumoniae, PCR Not Detected (NotDetected); Coronavirus 229E Not Detected (NotDetected); Coronavirus NL63 Not Detected (NotDetected); Coronavirus OC43 Not Detected (NotDetected); Coronovirus HKU1,PCR Not Detected (NotDetected); Human Metapneumovirus Not Detected (NotDetected); Influenza A, PCR Not Detected (NotDetected); Influenza AH1, 2009 Not Detected (NotDetected); Influenza AH1, PCR Not Detected (NotDetected); Influenza AH3,PCR Not Detected (NotDetected); Influenza B, PCR Not Detected (NotDetected); Mycoplasma Pneumoniae, PCR Not Detected (NotDetected); Parainfluenza 1, PCR Not Detected (NotDetected); Parainfluenza 2, PCR Not Detected (NotDetected); Parainfluenza 3, PCR Not Detected (NotDetected); Parainfluenza 4, PCR Not Detected (NotDetected); Respiratory Syncytial Virus Not Detected (NotDetected); Rhinovirus/Enterovirus Not Detected (NotDetected)
--- NOTE | 2022-12-27 10:53 | PC.NURSE ---
upon clinical eval, IV placed peripherally. no pulsation detected, IV saline locked at this time. IV flushes with no resistance. clean, dry and intact.
[2022-12-27 10:57] LABS: Troponin I < 0.01 ng/ml (0.00-0.034)
--- NOTE | 2022-12-27 11:04 | PC.NURSE ---
IV u/s confirmed IV placed in vein vs artery
--- NOTE | 2022-12-27 11:19 | PC.NURSE ---
LAB NOTIFIED OF NEW LAB RESULTS
[2022-12-27 11:37] LABS: NT Pro Brain Natriuretic Pep. 2140 pg/mL (0-125)
[2022-12-27 11:51] LABS: ABG Base Excess 0.4 mmol/L (-2.4-2.3); ABG HCO3 24.7 mmhg (22.0-26.0); ABG Oxygen Saturation 92 % (90-100); ABG PCO2 38.4 mmhg (35.0-45.0); ABG PH 7.43 mmol/L (7.35-7.45); ABG PO2 59.8 mmhg (80-100); ABG TCO2 25.9 mmhg (23-27)
[2022-12-27 11:52] LABS: Oxygen 2 lpm %; Source Right Brachial
--- NOTE | 2022-12-27 12:14 | PC.NURSE ---
called lab to check on full respiratory results, was told it would be results in about 10 minutes.
[2022-12-27 12:18] LABS: Coronavirus 19, PCR Detected (NotDetected)
--- NOTE | 2022-12-27 12:23 | PC.NURSE ---
report called to YOAV Aldrich
--- NOTE | 2022-12-27 12:34 | PC.NURSE ---
PT BEING TRANSPORTED UP FOR ADMISSION
--- NOTE | 2022-12-27 12:38 | PC.NURSE ---
arrived to floor by w/c from ED
--- NOTE | 2022-12-27 13:31 | EXP.HP ---
History of Present Illness *Admission Date: 12/27/22 *Reason for visit:: Cough/shortness of air *History of present illness: 67-year-old female with oxygen requiring COPD is normally at 2 L nasal cannula at home, who over the past week has had increasing shortness of air, cough, mild sputum production and dyspnea. Came to the ER this morning because of the symptoms, found to have infiltrates on chest x-ray, coughing and wheezing. And was requiring 3 L of nasal cannula, given nebs and steroids but did not really improve and admitted to hospital for further diagnostic testing and treatment of COPD exacerbation. [facility] Disclaimer: The information contained in this section may have been updated after the patient was seen, as this information can be updated by other users. Medical History CAD (coronary artery disease) COPD (chronic obstructive pulmonary disease) Diastolic dysfunction ACUÑA (dyspnea on exertion) History of placement of stent in LAD coronary artery HLD (hyperlipidemia) HTN (hypertension) PAD (peripheral artery disease) Subclavian artery stenosis, left Tobacco use Surgical History (Updated 03/26/19 @ 09:37 by KAROLINA Maza) Hx of right coronary artery stent placement Social History (Updated 05/11/22 @ 12:05 by Lily Daly APRN) Smoking Status: Current every day smoker tobacco type: cigarettes packs per day: 1 second hand exposure: No alcohol intake: never substance use type: denies use current occupational status: retired Travel in the last 8 weeks: None household members: none housing: house current occupational exposures/hazards: No caffeine: Yes Review of Systems Review of Systems Review of systems:: pertinent systems reviewed and negative unless documented below Meds Home Medications and Allergies Home Medications Medication Instructions Recorded Confirmed Type atorvastatin 20 mg tablet 20 mg PO DAILY Cholesterol 90 days 10/26/17 05/11/22 History ##90 cetirizine 10 mg tablet 10 mg PO DAILY allergies 30 days 10/26/17 05/11/22 History ##30 clopidogrel 75 mg tablet 75 mg PO DAILY heart. 90 days ##90 10/26/17 05/11/22 History gabapentin 300 mg capsule 600 mg PO BID leg pain-RLS 90 days 10/26/17 05/11/22 History ##360 meloxicam 15 mg tablet 15 mg PO DAILY Arthritis 90 days 10/26/17 05/11/22 History ##90 metformin 1,000 mg tablet 1,000 mg PO BID sugar- type 2 90 10/26/17 05/11/22 History days ##180 melatonin 1 mg tablet 2 mg PO HS PRN Sleep 04/24/18 05/11/22 History aspirin 81 mg tablet,delayed 81 mg PO DAILY Heart disease 05/06/18 05/11/22 History release atenolol 25 mg tablet 25 mg PO DAILY heart rate 06/03/20 05/11/22 History escitalopram oxalate 5 mg tablet 5 mg PO DAILY Anxiety 06/03/20 05/11/22 History tiotropium bromide 18 mcg capsule 2 cap inhalation DAILY COPD 06/03/20 05/11/22 History with inhalation device ipratropium 0.5 mg-albuterol 3 mg 1 ml inhalation DAILY COPD 05/03/22 05/11/22 History (2.5 mg base)/3 mL nebulization soln fluconazole 200 mg tablet 200 mg PO DAILY yeast 05/04/22 05/11/22 History hydrocodone 5 mg-acetaminophen 325 1 tab PO Q6H PRN pain #10 tabs 06/16/22 Rx mg tablet prednisone 20 mg tablet 20 mg PO BID #10 tabs 06/16/22 Rx furosemide 40 mg tablet 40 mg PO BID Fluid #60 tabs 09/21/22 Rx spironolactone 50 mg tablet 50 mg PO BID Fluid #60 tabs 09/21/22 Rx New Prescriptions to Start Prescriptions: Allergies Allergy/AdvReac Type Severity Reaction Status Date / Time levofloxacin [From LEVAQUIN] Allergy Unknown RAMOS Verified 05/11/22 11:48 THROAT Sulfa (Sulfonamide Allergy Unknown BLISTERING Verified 05/11/22 11:48 Antibiotics) OF THROAT Exam Data for Last 24 hours Vital signs and Labs for Last 24 Hours: Temp Pulse Resp BP Pulse Ox 98.5 F 78 20 105/65 L 90 L 12/27/22 12:46 12/27/22 12:46 12/27/22 12:46 12/27/22 12:46 12/27/22 12:46 Laboratory Results - l
--- NOTE | 2022-12-27 13:43 | HMH.PHAINT1 ---
Pharmacy Intervention Comments: HOME MEDICATION LIST VERIFIED USING LIST FROM OUTPATIENT PHARMACY
[2022-12-27 14:34] LABS: Troponin I < 0.01 ng/ml (0.00-0.034)
--- NOTE | 2022-12-27 16:19 | PC.NURSE ---
report given to Luis CASON
[2022-12-27 17:18] LABS: Troponin I < 0.01 ng/ml (0.00-0.034)
[2022-12-28] VITALS (11 sets, daily range): BP systolic 99–133; BP diastolic 52–80; PULSE 54–102; RESP 18–20; TEMP 36.4–37.2; O2SAT 90–95; BMI 31.3
--- NOTE | 2022-12-28 03:56 | PC.NURSE ---
Pt has rested well this shift. While ambulating to bathroom at beginning of shift, pt became more SOA with decreased O2 sats to 83%, and wheezing noted in BUL. Pts O2 was increased from 2L to 3.5L NC and Pt quickly recovered with O2 sats in 90's. RT was paged for PRN duoneb. O2 decreased to 3L after episode. Pt has had no other issues this shift. Pt remains on 3L NC to maintain O2 sats >90%. NS infusing at 75 ml/hr per NOV. Call light in reach.
[2022-12-28 07:11] LABS: Chloride 103 mmol/L (98-107); Sodium 138 mmol/L (136-145)
[2022-12-28 07:12] LABS: Basophils % 0.2 % (0.1-2.0); Eosinophils % 0.3 % (0.1-12.0); Hematocrit 39.6 % (37.0-47.0); Hemoglobin 12.5 g/dL (12.2-16.2); Lymphocytes # 0.8 K/mm3 (0.7-4.5); Lymphocytes % 13.4 % (10-50); Mean Corpuscular HGB Conc 31.7 g/dL (31.8-35.4); Mean Corpuscular Hemoglobin 32.6 pg (27.0-31.2); Mean Platelet Volume 9.6 fl (7.4-10.4); Monocytes # 0.2 K/mm3 (0.1-1.0); Monocytes % 4.1 % (1.7-9.3); Neutrophils # 4.6 K/mm3 (1.8-7.8); Platelet Count 157 K/mm3 (142-424); Potassium 5.9 mmoL/L (3.5-5.1); Red Blood Count 3.84 M/mm3 (4.20-5.40); Red Cell Distribution Width 15.4 % (11.5-17.5); White Blood Count 5.6 K/mm3 (4.8-10.8)
[2022-12-28 07:14] LABS: Blood Urea Nitrogen 35 mg/dl (7-17); Creatinine Clearance Estimated 61 mL/min (50-200); Estimated Glomerular Filt Rate 50 ml/min (>60); GFR (African American) 60 ML/MIN (>60)
[2022-12-28 07:15] LABS: Anion Gap 16.9 mEq/L (5-15); Calcium 8.5 mg/dl (8.4-10.2); Carbon Dioxide 24 mmol/L (22.0-30.0); Glucose 297 mg/dl (74-100)
--- NOTE | 2022-12-28 08:35 | EXP.ACUTE.PN ---
Subjective *Date: 12/28/22 *Time: 08:35 Interval history: Patient has done well overnight, continues to require 4 L nasal cannula. He is eating well, is able to get around the room by herself but is very dyspneic. Medical Exam Vital signs and Labs for Last 24 Hours: Vital Signs Temp Pulse Pulse Resp BP BP Pulse Ox 12/28/22 07:18 97.5 F L 87 20 99/62 L 91 L 12/28/22 05:38 54 L 12/28/22 05:38 59 L 12/28/22 05:38 91 L 12/28/22 04:00 97.9 F 96 H 18 105/56 L 94 L 12/28/22 00:00 97.7 F 97 H 18 106/57 L 92 L 12/27/22 21:56 91 H 12/27/22 21:56 91 H 12/27/22 21:56 92 L 12/27/22 20:00 98.2 F 89 18 125/59 L 94 L 12/27/22 19:07 80 12/27/22 19:07 80 12/27/22 14:48 97.9 F 89 18 116/68 90 L 12/27/22 12:46 98.5 F 78 20 105/65 L 90 L 12/27/22 12:45 98.4 F 72 21 121/72 12/27/22 11:30 75 109/68 L 92 L 12/27/22 11:00 81 20 125/60 92 L 12/27/22 10:30 51 L 20 128/78 100 12/27/22 10:35 87 12/27/22 10:35 89 12/27/22 09:59 98.2 F 85 17 130/90 87 L Intake and Output 12/27/22 12/28/22 12/28/22 19:59 03:59 11:59 Intake Total 600 / 720 120 / 720 Output Total 0 / 150 0 / 150 150 / 150 Balance 600 / 570 0 / 570 -30 / 570 Intake: Intake, Oral Amount 600 / 720 120 / 720 Output: Output, Urine Amount 0 / 150 0 / 150 150 / 150 Other: Number of Unmeasured Voids 1 1 1 Weight 169 lb 5 oz 170 lb 4 oz Patient Weight 12/28/22 11:59 Weight 170 lb 4 oz Laboratory Results - last 24 hr 12/27/22 10:10: WBC 9.1, RBC 4.06 L, Hgb 13.1, Hct 41.0, MCV 101.0 H, MCH 32.2 H, MCHC 31.9, RDW 15.3, Plt Count 202, MPV 9.5, Neut % (Auto) 75.1, Lymph % (Auto) 14.5, [place] % (Auto) 9.1, Eos % (Auto) 0.8, Baso % (Auto) 0.5, Neut # (Auto) 6.8, Lymph # (Auto) 1.3, [place] # (Auto) 0.8, Eos # (Auto) 0.1, Baso # (Auto) 0.1 12/27/22 10:10: Sodium 139, Potassium 4.3, Chloride 101, Carbon Dioxide 29, Anion Gap 13.3, BUN 28 H, Creatinine 1.30 H, Estimated Creat Clear 48, Estimated GFR 41 L, Est GFR ( Amer) 49 L, Glucose 214 H, Calcium 8.9, Total Bilirubin 0.4, AST 21, ALT 18, Alkaline Phosphatase 95, Troponin I < 0.01, Total Protein 6.9, Albumin 4.0, Globulin 2.9, Albumin/Globulin Ratio 1.4 12/27/22 10:10: Lactate 2.0 12/27/22 10:10: NT-Pro-B Natriuret Pep 2140 H 12/27/22 10:18: VBG pH 7.41, VBG pCO2 43.7, VBG pO2 210.5 H, VBG HCO3 27.3, VBG Total CO2 28.6 H, VBG O2 Saturation 99.2 H, VBG Base Excess 2.7 H 12/27/22 10:30: Chlamy pneumoniae PCR Not detected, Adenovirus (PCR) Not detected, B. pertussis DNA (PCR) Not detected, Coronavirus OC43 (PCR) Not detected, Coronavirus HKU1 (PCR) Not detected, Coronavirus 229E (PCR) Not detected, SARS-CoV-2 (PCR) Detected A, Coronavirus NL63 (PCR) Not detected, Human Metapneumovir PCR Not detected, Influenza A (H1) PCR Not detected, Influ A (H1N1/09) PCR Not detected, Influenza A (H3) PCR Not detected, Influenza Type A (PCR) Not detected, Influenza Type B (PCR) Not detected, M. pneumoniae (PCR) Not detected, Parainfluenza 1 (PCR) Not detected, Parainfluenza 2 (PCR) Not detected, Parainfluenza 3 (PCR) Not detected, Parainfluenza 4 (PCR) Not detected, RSV (PCR) Not detected, Entero/Rhino (PCR) Not detected 12/27/22 11:44: Specimen Source Right brachial, O2 % 2 lpm, ABG pH 7.43, ABG pCO2 38.4, ABG pO2 59.8 L, ABG HCO3 24.7, ABG Total CO2 25.9, ABG O2 Saturation 92, ABG Base Excess 0.4, Luca Test n/a 12/27/22 13:34: Troponin I < 0.01 12/27/22 16:10: Troponin I < 0.01 12/28/22 06:20: WBC 5.6 D, RBC 3.84 L, Hgb 12.5, Hct 39.6, MCV 103.0 H, MCH 32.6 H, MCHC 31.7 L, RDW 15.4, Plt Count 157, MPV 9.6, Neut % (Auto) 82.0 H, Lymph % (Auto) 13.4, [place] % (Auto) 4.1, Eos % (Auto) 0.3, Baso % (Auto) 0.2, Neut # (Auto) 4.6, Lymph # (Auto) 0.8, [place] # (Auto) 0.2, Eos # (Auto) 0.0, Baso # (Auto) 0.0 12/28/22 06:20: Sodium 138, Potassium 5.9 H D, Chloride 103, Carbon Dioxide 24, Anion Gap 16.9 H,
--- NOTE | 2022-12-28 15:06 | PC.NURSE ---
PT A&OX4. TOLERATING 4LNC WELL THUS FAR. AMBULATING WITH STANDBY ASSIST IN ROOM. DOES GET VERY WINDED WITH AMBULATION. PT HAS RESTED WELL T/O SHIFT. NO NEEDS OR C/O NOTED THUS FAR, VSS.
[2022-12-29] VITALS: BP 118/55; PULSE 93; RESP 18; TEMP 36.9; O2SAT 96
--- NOTE | 2022-12-29 03:30 | PC.NURSE ---
Addendum entered by Marion Jang RN 12/29/22 03:53: REMAINS IN [place]/CONTACT ISOLATION Original Note: PATIENT C/O SOA WITH MINIMAL EXERTION. 02 SAT ON ROOM AIR 87% AND 93-96% ON 4LNC. DRY COUGH NOTED. LUNGS DIMINISHED BUT ESSENTIALLY CLEAR. PATIENT GROANS OUT WITH EACH BREATH WHILE AWAKE BUT DOES NOT DO THIS WHEN SLEEPING. VSS/AFEBRILE. AMBULATORY TO THE BR WITH ASSIST WITH IV POLE.
[2022-12-29 04:00] VITALS: BP 114/60; PULSE 92; RESP 18; TEMP 36.5; O2SAT 93; BMI 32.0
[2022-12-29 05:50] VITALS: PULSE 87; PULSE 88; O2SAT 88
[2022-12-29 07:58] LABS: Basophils % 0.1 % (0.1-2.0); Eosinophils % 0.1 % (0.1-12.0); Hematocrit 38.2 % (37.0-47.0); Hemoglobin 11.8 g/dL (12.2-16.2); Lymphocytes # 0.7 K/mm3 (0.7-4.5); Lymphocytes % 5.3 % (10-50); Mean Corpuscular HGB Conc 30.8 g/dL (31.8-35.4); Mean Corpuscular Hemoglobin 31.9 pg (27.0-31.2); Mean Corpuscular Volume 103.6 fl (81-99); Mean Platelet Volume 9.5 fl (7.4-10.4); Monocytes # 0.4 K/mm3 (0.1-1.0); Monocytes % 3.2 % (1.7-9.3); Neutrophils # 12.6 K/mm3 (1.8-7.8); Neutrophils % 91.4 % (37.0-80.0); Platelet Count 211 K/mm3 (142-424); Red Blood Count 3.69 M/mm3 (4.20-5.40); Red Cell Distribution Width 15.3 % (11.5-17.5); White Blood Count 13.8 K/mm3 (4.8-10.8)
[2022-12-29 08:00] VITALS: BP 129/64; PULSE 92; RESP 21; TEMP 36.6; O2SAT 86
[2022-12-29 08:00] LABS: Chloride 106 mmol/L (98-107); Potassium 4.4 mmoL/L (3.5-5.1); Sodium 141 mmol/L (136-145)
[2022-12-29 08:03] LABS: Blood Urea Nitrogen 37 mg/dl (7-17); Creatinine Clearance Estimated 68 mL/min (50-200); Estimated Glomerular Filt Rate 55 ml/min (>60); GFR (African American) 67 ML/MIN (>60)
[2022-12-29 08:04] LABS: Anion Gap 16.4 mEq/L (5-15); Calcium 8.7 mg/dl (8.4-10.2); Carbon Dioxide 23 mmol/L (22.0-30.0); Glucose 293 mg/dl (74-100); MANUAL DIFFERENTIAL MANUAL DIFFERENTIAL (MANUAL DIFF)
[2022-12-29 08:36] LABS: Lymphocytes % 6 % (10-50); Monocytes % 3 % (2-9); Neutrophils % 91 % (42-76); Platelet Estimate Normal; RBC Morphology Normal; Total Cells Counted 100
--- NOTE | 2022-12-29 09:14 | EXP.DC.SUM ---
General Admission date:: 12/27/22 Discharge date: 12/29/22 HPI HPI HPI: 67-year-old female with oxygen requiring COPD is normally at 2 L nasal cannula at home, who over the past week has had increasing shortness of air, cough, mild sputum production and dyspnea. Came to the ER this morning because of the symptoms, found to have infiltrates on chest x-ray, coughing and wheezing. And was requiring 3 L of nasal cannula, given nebs and steroids but did not really improve and admitted to hospital for further diagnostic testing and treatment of COPD exacerbation. Hospital Course Hospital Course Hospital Course: Patient was admitted, placed on IV steroids, IV ceftriaxone and azithromycin for COPD exacerbation. When she was admitted to the floor found out to have a positive COVID PCR test. Placed in respiratory isolation. She did not meet criteria for IV remdesivir therapy. She was treated with O2, supportive care and improved over the next 48 hours. Her O2 saturations remained in the mid 80s but apparently this is how she runs at home and feels very comfortable with this. She was able to do her own ADLs over the last 24 hours and wants to go home. Patient will be discharged home with outpatient COVID therapy, antibiotics and steroids, instructed to use her nebulizer treatments 3-4 times a day, instructed to try to cut down smoking is much as she possibly can. I will see her in 5 days my office. Exam Data for Last 24 hours Vital signs and Labs for Last 24 Hours: Temp Pulse Resp BP Pulse Ox 97.9 F 92 H 21 129/64 86 L 12/29/22 08:00 12/29/22 08:00 12/29/22 08:00 12/29/22 08:00 12/29/22 08:00 Laboratory Results - last 24 hr 12/29/22 07:20: WBC 13.8 H D, RBC 3.69 L, Hgb 11.8 L, Hct 38.2, MCV 103.6 H, MCH 31.9 H, MCHC 30.8 L, RDW 15.3, Plt Count 211 D, MPV 9.5, Neut % (Auto) 91.4 H, Lymph % (Auto) 5.3 L, [place] % (Auto) 3.2, Eos % (Auto) 0.1, Baso % (Auto) 0.1, Neut # (Auto) 12.6 H, Lymph # (Auto) 0.7, [place] # (Auto) 0.4, Eos # (Auto) 0.0, Baso # (Auto) 0.0, Total Counted 100, Neutrophils % (Manual) 91 H, Lymphocytes % (Manual) 6 L, Monocytes % (Manual) 3, Platelet Estimate Normal, RBC Morphology Normal 12/29/22 07:20: Sodium 141, Potassium 4.4 D, Chloride 106, Carbon Dioxide 23, Anion Gap 16.4 H, BUN 37 H, Creatinine 1.00, Estimated Creat Clear 68, Estimated GFR 55 L, Est GFR ( Amer) 67, Glucose 293 H, Calcium 8.7 I & O for Last 24 hours: Intake & Output 12/26/22 12/27/22 12/28/22 12/29/22 11:59 11:59 11:59 11:59 Intake Total 720 / 720 3227 / 3227 Output Total 150 / 150 602 / 602 Balance 570 / 570 2625 / 2625 Weight 160 lb 170 lb 4 oz 174 lb 3 oz Constitutional Constitutional: no acute distress *Routine HEENT Exam Head: Present normocephalic Eye: Present EOMI and PERRL ENT: Present mucous membranes moist *Routine Neck Exam Neck: Present supple; Absent lymphadenopathy *Routine Respiratory Exam Respiratory: Present accessory muscle use, rhonchi, diminished air movement and able to speak in complete sentences *Routine Cardiovascular Exam Cardiovascular: Present RRR *Routine Abdominal Exam Abdominal: Present soft and normoactive bowel sounds; Absent tenderness *Routine Extremities Exam Extremities: Absent cyanosis, clubbing or edema *Routine Skin Exam Skin: Present warm; Absent rash *Routine Neurological Exam Neurological: Present alert and oriented X3 Results Data Completed and Pending Labs on day of discharge: Labs from last 24 hours 12/29/22 12/29/22 07:20 07:20 WBC 13.8 H D RBC 3.69 L Hgb 11.8 L Hct 38.2 MCV 103.6 H MCH 31.9 H MCHC 30.8 L RDW 15.3 Plt Count 211 D MPV 9.5 Neut % (Auto) 91.4 H Lymph % (Auto) 5.3 L [place] % (Auto) 3.2 Eos % (Auto) 0.1 Baso % (Auto) 0.1 Neut # (Auto) 12.6 H Lymph # (Auto) 0.7 [place] # (Auto) 0.4 Eos # (Auto) 0.0 Baso # (Auto) 0.0 Total Counted 100 Neutrophils % (Manual) 91 H Lymphocytes % (Manual
--- NOTE | 2022-12-29 10:00 | PC.NURSE ---
courtesy tech note; rounded on pt, assisted pt to bathroom standby assist, pt denied need for a drink, and need to reposition. call light within reach, no further requests at this time. Shamir Bran, DELMY
== END 2022-12-29 10:55 | disposition home or self-care (01) ==
LOC: ER 11:24 → 2ND 11:49
PROVIDERS: Admitting Provider Internal Medicine Adolescent Medicine; Emergency Provider Emergency Medicine; PCP Internal Medicine Adolescent Medicine; Visit Provider Internal Medicine Adolescent Medicine
DX: J44.1 Chronic obstructive pulmonary disease with (acute) exacerbation (principal)
CPT/HCPCS: 36415; 71046; 80048; 80053; 82803; 83605; 83880; 84484; 85007; 85025; 87581; 87632; 87798; 93005; 94640; 94760; 94761; 99285; C9803; G0378; J0456; J0696; U0003; U0005

== ENCOUNTER 2022-12-30 08:33 | Inpatient (IN) | payer MEDICARE, SELFPAY ==
[2022-12-30] VITALS (10 sets, daily range): BP systolic 120–129; BP diastolic 52–79; PULSE 85–122; RESP 19–28; TEMP 36.6–36.9; O2SAT 90–97; BMI 29.2; BMI 33.3
--- NOTE | 2022-12-30 08:34 | XR_ITS ---
PROCEDURE INFORMATION: Exam: XR Chest Exam date and time: 12/30/2022 8:56 AM Age: 67 years old Clinical indication: Shortness of breath; Additional info: Copd/soa TECHNIQUE: Imaging protocol: Radiologic exam of the chest. Views: 1 view. COMPARISON: CR XR CHEST 2V 12/27/2022 10:43 AM FINDINGS: Lungs: Opacities in the mid lung regions and both bases may represent atelectasis or pneumonia.. Pleural spaces: Unremarkable. No pleural effusion. No pneumothorax. Heart/Mediastinum: Stable cardiac silhouette Bones/joints: Unremarkable. IMPRESSION: Opacities in the mid lung regions and both bases may represent atelectasis or pneumonia..
--- NOTE | 2022-12-30 08:38 | HMH.EDGENADL ---
Discharge Plan Disposition Patient Disposition: Admitted As Inpatient Condition: Serious Prescriptions Prescriptions: No Action melatonin 1 mg tablet 2 mg PO HSP PRN (Reason: Sleep) ipratropium-albuterol 0.5 mg-3 mg(2.5 mg base)/3 mL solution for nebulization 3 ml IH QIDP PRN (Reason: shortness of breath/COPD) Label Comments: USE 1 AMPULE IN NEBULIZER 4 TIMES DAILY metformin 1,000 mg tablet 1,000 mg PO BIDWMEAL 90 Days Qty: 180 Label Comments: clopidogrel 75 mg tablet 75 mg PO DAILY 90 Days Qty: 90 Label Comments: cetirizine 10 mg tablet 10 mg PO DAILY 30 Days Qty: 30 Label Comments: TAKE 1 TABLET ONCE A DAY FOR VERTIGO gabapentin 300 mg capsule 600 mg PO BID 90 Days Qty: 360 Label Comments: meloxicam 15 mg tablet 15 mg PO DAILY 90 Days Qty: 90 Label Comments: atorvastatin 20 mg tablet 20 mg PO HS 90 Days Qty: 90 Label Comments: spironolactone 50 mg tablet 50 mg PO BID Qty: 60 5RF furosemide 40 mg tablet 40 mg PO BID Qty: 60 5RF atenolol 25 MG tablet 25 mg PO DAILY escitalopram oxalate 5 MG tablet 5 mg PO DAILY tiotropium bromide 5 CAP capsule, w/inhalation device 2 cap IH DAILY allopurinol 100 mg tablet 200 mg PO DAILY azithromycin [azithromycin] 250 mg tablet 250 mg PO DIRECTED Qty: 6 0RF Rx Instructions: Take two (2) tablets on day #1, then one (1) tablet day #2 thru #5 dexamethasone 4 mg tablet 4 mg PO BID Qty: 14 0RF cefdinir 300 mg capsule 300 mg PO BID Qty: 14 0RF Lagevrio (EUA) 200 mg capsule 800 mg PO Q12H 5 Days Qty: 40 0RF aspirin 81 MG tablet,delayed release (DR/EC) 81 mg PO DAILY Clinical Impressions Clinical Impression: Respiratory failure, Acute exacerbation of chronic obstructive pulmonary disease, Pneumonia due to COVID-19 virus Discharge ED Provider: Dada Grossman General Adult HPI General Chief complaint: Shortness of Breath/Dyspnea Stated complaint: shortness of air Time Seen by Provider: 12/30/22 08:38 History of Present Illness HPI narrative: Patient is a 67-year-old female with past medical history of COPD on nocturnal 2 L nasal cannula intermittently, CAD status post previous left-sided lung cancer status post chemoradiation which has been stable upon multiple recent evaluations with her primary oncologist who presents emergency department for repeat evaluation of cough and shortness of breath.? Patient was seen in the emergency department by me a few days ago with increased oxygen requirement and was diagnosed with COPD exacerbation and subsequently admitted. Review of inpatient notes revealed patient had positive COVID PCR. Patient remained stable on increased oxygen requirement and requested to be discharged home yesterday and was discharged with outpatient COVID therapy, antibiotics and steroids as well as nebulizers and instructed to follow-up with PCP within 5 days. Upon going home patient had worsening shortness of breath and returns here for continued evaluation. Related Data Home Medications Medication Instructions Recorded Confirmed atorvastatin 20 mg tablet 20 mg PO HS Cholesterol 90 days 10/26/17 12/27/22 ##90 cetirizine 10 mg tablet 10 mg PO DAILY Allergy symptoms 30 10/26/17 12/27/22 days ##30 clopidogrel 75 mg tablet 75 mg PO DAILY platelet 10/26/17 12/27/22 inhibitor/hx of stents 90 days ##90 gabapentin 300 mg capsule 600 mg PO BID restless leg 10/26/17 12/27/22 syndrome 90 days ##360 meloxicam 15 mg tablet 15 mg PO DAILY Arthritis 90 days 10/26/17 12/27/22 ##90 metformin 1,000 mg tablet 1,000 mg PO BIDWMEAL Diabetes 90 10/26/17 12/27/22 days ##180 melatonin 1 mg tablet 2 mg PO HSP PRN Sleep 04/24/18 12/27/22 aspirin 81 mg tablet,delayed 81 mg PO DAILY Heart disease 05/06/18 12/27/22 release atenolol 25 mg tablet 25 mg PO DAILY heart rate 06/03/20 12/27/22 escit
--- NOTE | 2022-12-30 08:39 | ECG_ITS ---
APPROVED REPORT Exam: Resting ECG HR:92 bpm ECG Measurements Heart Rate 92 AXES MT 159 P 70 QRSd 94 QRS 50 QT 391 T 123 QTc 441 Conclusion SINUS RHYTHM NONSPECIFIC ST & T-WAVE ABNORMALITY ABNORMAL ECG UNCONFIRMED REPORT Electronically signed by : Anselmo Montana MD 12/30/2022 20:20:59
--- NOTE | 2022-12-30 08:45 | PC.NURSE ---
called RT for abg and treatment
[2022-12-30 08:50] LABS: Basophils % 0.3 % (0.1-2.0); Hematocrit 40.7 % (37.0-47.0); Hemoglobin 12.9 g/dL (12.2-16.2); Lymphocytes # 0.8 K/mm3 (0.7-4.5); Lymphocytes % 4.6 % (10-50); Mean Corpuscular HGB Conc 31.7 g/dL (31.8-35.4); Mean Corpuscular Hemoglobin 32.1 pg (27.0-31.2); Mean Corpuscular Volume 101.4 fl (81-99); Mean Platelet Volume 9.5 fl (7.4-10.4); Monocytes # 1.1 K/mm3 (0.1-1.0); Monocytes % 6.3 % (1.7-9.3); Neutrophils % 88.7 % (37.0-80.0); Platelet Count 290 K/mm3 (142-424); Red Blood Count 4.02 M/mm3 (4.20-5.40); Red Cell Distribution Width 15.2 % (11.5-17.5); White Blood Count 16.9 K/mm3 (4.8-10.8)
[2022-12-30 08:54] LABS: ABG Base Excess -2.6 mmol/L (-2.4-2.3); ABG HCO3 23.5 mmhg (22.0-26.0); ABG Oxygen Saturation 90 % (90-100); ABG PCO2 46.4 mmhg (35.0-45.0); ABG PH 7.32 mmol/L (7.35-7.45); ABG TCO2 24.9 mmhg (23-27)
[2022-12-30 08:54] LABS: MANUAL DIFFERENTIAL MANUAL DIFFERENTIAL (MANUAL DIFF)
[2022-12-30 08:55] LABS: Allen's Test Acceptable; Oxygen 4.5 %; Source Left Radial
[2022-12-30 08:57] LABS: Chloride 103 mmol/L (98-107)
[2022-12-30 08:58] LABS: Potassium 4.5 mmoL/L (3.5-5.1); Sodium 142 mmol/L (136-145)
--- NOTE | 2022-12-30 08:59 | PC.NURSE ---
whit clemons started on pt.
[2022-12-30 09:00] LABS: Alanine Aminotransferase 31 U/L (12-78); Alkaline Phosphatase 90 U/L (38-126); Aspartate Amino Transferase 32 U/L (14-36); Bilirubin,Total 0.4 mg/dl (0.2-1.3); Blood Urea Nitrogen 32 mg/dl (7-17); Creatinine Clearance Estimated 52 mL/min (50-200); Estimated Glomerular Filt Rate 45 ml/min (>60); GFR (African American) 54 ML/MIN (>60)
[2022-12-30 09:01] LABS: Albumin Level 3.9 g/dl (3.5-5.0); Albumin/Globulin Ratio 1.4 (1.1-1.8); Anion Gap 16.5 mEq/L (5-15); Carbon Dioxide 27 mmol/L (22.0-30.0); Globulin 2.8 g/dL (1.3-3.2); Glucose 318 mg/dl (74-100); Total Protein,Serum 6.7 g/dl (6.3-8.2)
[2022-12-30 09:07] LABS: Lactic Acid 3.2 mmol/L (0.7-2.1)
[2022-12-30 09:09] LABS: Lymphocytes % 5 % (10-50); Monocytes % 5 % (2-9); Neutrophils % 90 % (42-76); Platelet Estimate Normal; Total Cells Counted 100
[2022-12-30 09:12] LABS: Troponin I 0.04 ng/ml (0.00-0.034)
--- NOTE | 2022-12-30 09:21 | PC.NURSE ---
on with Rubén @ this time
--- NOTE | 2022-12-30 09:26 | PC.NURSE ---
Rounded on patient. Patient requested a warm blanket. Call light within reach
[2022-12-30 09:27] LABS: Influenza A, PCR Not Detected (NotDetected); Influenza B, PCR Not Detected (NotDetected)
--- NOTE | 2022-12-30 09:31 | PC.NURSE ---
spoke with warehouse driver for admission
[2022-12-30 09:48] LABS: Procalcitonin 0.044 ng/mL (0.0-2.0)
--- NOTE | 2022-12-30 09:48 | PC.NURSE ---
report called to Mounika CASON
[2022-12-30 10:11] LABS: Coronavirus 19, PCR Detected (NotDetected)
--- NOTE | 2022-12-30 10:18 | PC.NURSE ---
family is stating that she has chest pain, at with another EKG obtained
--- NOTE | 2022-12-30 10:19 | ECG_ITS ---
APPROVED REPORT Exam: Resting ECG HR:99 bpm ECG Measurements Heart Rate 99 AXES OK 145 P 71 QRSd 88 QRS 55 QT 369 T 122 QTc 425 Conclusion SINUS RHYTHM NONSPECIFIC ST & T-WAVE ABNORMALITY ABNORMAL ECG UNCONFIRMED REPORT Electronically signed by : Anselmo Montana MD 01/05/2023 14:35:07
--- NOTE | 2022-12-30 12:28 | HMH.PHAINT1 ---
Pharmacy Intervention Comments: MEDICATION RECONCILIATION COMPLETE USING LIST FROM [facility] DISCHARGE (12/29/22) AND EXTERNAL PHARMACY FILL HISTORY.
[2022-12-30 12:59] LABS: Reflex Lactic Add Lactic Reflex
[2022-12-30 13:24] LABS: Troponin I 0.12 ng/ml (0.00-0.034)
[2022-12-30 14:11] LABS: Lactic Acid Follow Up (RFLX 1) 1.9 mmol/L (0.7-2.1)
--- NOTE | 2022-12-30 14:37 | PC.NURSE ---
late entry- pts o2 sat droped to 72% 20 mins after arriving to floor. called resp. kennedy notified, stated okay with going up to vapotherm if needed as long as o2 sats stay above 85%. venti mask applied, currently on 50%. around 1330 pt c/o soa. pt became very anxious. daughter requesting something for her nerves . per kennedy order ativan 0.5mg q6hr prn for anxiety.
[2022-12-30 15:05] LABS: Troponin I 0.18 ng/ml (0.00-0.034)
--- NOTE | 2022-12-30 16:37 | PC.NURSE ---
pt continues to take venti mask off, o2 sat drops in the low 70s. pt educated again about the importance of leaving oxygen on. pt has taken mask off twice and it fell off once.
[2022-12-30 17:59] LABS: ABG Base Excess -3.8 mmol/L (-2.4-2.3); ABG HCO3 22.2 mmhg (22.0-26.0); ABG Oxygen Saturation 95 % (90-100); ABG PCO2 43.4 mmhg (35.0-45.0); ABG PH 7.33 mmol/L (7.35-7.45); ABG PO2 81.6 mmhg (80-100); ABG TCO2 23.5 mmhg (23-27)
[2022-12-30 18:00] LABS: Allen's Test Y; Oxygen 60 %; Source Left Radial
--- NOTE | 2022-12-30 18:09 | PC.NURSE ---
glucose 444, notified kennedy. per kennedy, order high intensity ssi give 20units regular now
--- NOTE | 2022-12-30 19:55 | EXP.HP ---
History of Present Illness *Admission Date: 12/30/22 *Reason for visit:: Worsening dyspnea *History of present illness: 67-year-old white female recently discharged, yesterday, from [facility] after a 2-day stay for COPD exacerbation with a diagnosis of COVID-19 infection. She was discharged with antibiotics, nebulizer treatments and antiviral medication. She was tenuous to go home but was fairly insistent on being discharged and was discharged in the care of her family. She came back to the ER this morning stating that in spite of her oxygen at 4 L, nebulized treatments and other medication she was increasingly short of breath and very worried. Admitted to hospital for worsening oxygen requirement, further diagnostic testing and inpatient treatment for COVID-19 pneumonia [facility] Disclaimer: The information contained in this section may have been updated after the patient was seen, as this information can be updated by other users. Medical History CAD (coronary artery disease) COPD (chronic obstructive pulmonary disease) Diabetes mellitus Diastolic dysfunction ACUÑA (dyspnea on exertion) History of placement of stent in LAD coronary artery HLD (hyperlipidemia) HTN (hypertension) PAD (peripheral artery disease) Subclavian artery stenosis, left Tobacco use Surgical History Hx of right coronary artery stent placement Family History No significant family history Social History (Updated 12/30/22 @ 13:03 by Gena Craven RN) Smoking Status: Current every day smoker tobacco type: cigarettes packs per day: 1 second hand exposure: No alcohol intake: never substance use type: denies use current occupational status: retired Travel in the last 8 weeks: None household members: none housing: house current occupational exposures/hazards: No caffeine: Yes Meds Home Medications and Allergies Home Medications Medication Instructions Recorded Confirmed Type atorvastatin 20 mg tablet 20 mg PO HS Cholesterol 90 days 10/26/17 12/30/22 History ##90 cetirizine 10 mg tablet 10 mg PO DAILY Allergy symptoms 30 10/26/17 12/30/22 History days ##30 clopidogrel 75 mg tablet 75 mg PO DAILY Blood thinner 90 10/26/17 12/30/22 History days ##90 gabapentin 300 mg capsule 600 mg PO BID NERVE PAIN 90 days 10/26/17 12/30/22 History ##360 meloxicam 15 mg tablet 15 mg PO DAILY Arthritis 90 days 10/26/17 12/30/22 History ##90 metformin 1,000 mg tablet 1,000 mg PO BIDWMEAL Diabetes 90 10/26/17 12/30/22 History days ##180 melatonin 1 mg tablet 2 mg PO HSP PRN Sleep 04/24/18 12/30/22 History aspirin 81 mg tablet,delayed 81 mg PO DAILY Heart disease 05/06/18 12/30/22 History release atenolol 25 mg tablet 25 mg PO DAILY HEART RATE 06/03/20 12/30/22 History escitalopram oxalate 5 mg tablet 5 mg PO DAILY Anxiety 06/03/20 12/30/22 History tiotropium bromide 18 mcg capsule 2 cap inhalation DAILY COPD 06/03/20 12/30/22 History with inhalation device ipratropium 0.5 mg-albuterol 3 mg 3 ml inhalation QIDP PRN Shortness 05/03/22 12/30/22 History (2.5 mg base)/3 mL nebulization Of Breath soln spironolactone 50 mg tablet 50 mg PO BID Fluid #60 tabs 09/21/22 12/30/22 Rx allopurinol 100 mg tablet 200 mg PO DAILY gout 12/27/22 12/30/22 History azithromycin 250 mg tablet 250 mg PO DAILY Infection 12/30/22 12/30/22 History cefdinir 300 mg capsule 300 mg PO BID Infection 12/30/22 12/30/22 History dexamethasone 4 mg tablet 4 mg PO BID Infection 12/30/22 12/30/22 History furosemide 40 mg tablet 40 mg PO BIDL Fluid 12/30/22 12/30/22 History molnupiravir 200 mg capsule (EUA) 800 mg PO Q12H Infection 12/30/22 12/30/22 History (Lagevrio) New Prescriptions to Start Prescriptions: Allergies Allergy/AdvReac Type Severity Reaction Status Date / Time levofloxacin [From LEVAQUIN] Allergy Unknown RAMOS Verified
[2022-12-30 21:03] LABS: POC Glucose,Bedside 388 (70-110)
[2022-12-31] VITALS (7 sets, daily range): BP systolic 113–143; BP diastolic 58–77; PULSE 82–101; RESP 20–34; TEMP 36.6–37.2; O2SAT 93–100; BMI 33.5
[2022-12-31 07:16] LABS: Basophils % 0.3 % (0.1-2.0); Eosinophils % 0.2 % (0.1-12.0); Hematocrit 36.9 % (37.0-47.0); Hemoglobin 11.9 g/dL (12.2-16.2); Lymphocytes # 0.7 K/mm3 (0.7-4.5); Lymphocytes % 7.4 % (10-50); Mean Corpuscular HGB Conc 32.3 g/dL (31.8-35.4); Mean Corpuscular Hemoglobin 32.4 pg (27.0-31.2); Mean Corpuscular Volume 100.5 fl (81-99); Mean Platelet Volume 9.8 fl (7.4-10.4); Monocytes # 0.6 K/mm3 (0.1-1.0); Monocytes % 6.6 % (1.7-9.3); Neutrophils # 8.1 K/mm3 (1.8-7.8); Neutrophils % 85.6 % (37.0-80.0); Platelet Count 238 K/mm3 (142-424); Red Blood Count 3.68 M/mm3 (4.20-5.40); Red Cell Distribution Width 15.3 % (11.5-17.5); White Blood Count 9.5 K/mm3 (4.8-10.8)
[2022-12-31 07:19] LABS: MANUAL DIFFERENTIAL MANUAL DIFFERENTIAL (MANUAL DIFF)
[2022-12-31 07:22] LABS: Chloride 106 mmol/L (98-107); Potassium 4.3 mmoL/L (3.5-5.1); Sodium 145 mmol/L (136-145)
[2022-12-31 07:24] LABS: Blood Urea Nitrogen 36 mg/dl (7-17); Creatinine Clearance Estimated 65 mL/min (50-200); Estimated Glomerular Filt Rate 50 ml/min (>60); GFR (African American) 60 ML/MIN (>60); Lactic Acid 1.5 mmol/L (0.7-2.1)
[2022-12-31 07:25] LABS: Alanine Aminotransferase 23 U/L (12-78); Albumin Level 3.5 g/dl (3.5-5.0); Albumin/Globulin Ratio 1.3 (1.1-1.8); Alkaline Phosphatase 80 U/L (38-126); Anion Gap 13.3 mEq/L (5-15); Aspartate Amino Transferase 22 U/L (14-36); Bilirubin,Total 0.3 mg/dl (0.2-1.3); Calcium 9.1 mg/dl (8.4-10.2); Carbon Dioxide 30 mmol/L (22.0-30.0); Globulin 2.7 g/dL (1.3-3.2); Glucose 156 mg/dl (74-100); Total Protein,Serum 6.2 g/dl (6.3-8.2)
[2022-12-31 08:42] LABS: Lymphocytes % 8 % (10-50); Monocytes % 5 % (2-9); Neutrophils % 87 % (42-76); Total Cells Counted 100
[2022-12-31 08:44] LABS: Macrocytosis 1+
[2022-12-31 08:45] LABS: Platelet Estimate Normal
--- NOTE | 2022-12-31 08:47 | EXP.ACUTE.PN ---
Subjective *Date: 12/31/22 *Time: 08:47 Interval history: Patient stabilized overnight on Vapotherm. Slept well and feels a little better this morning. Asks about when she can go home. Medical Exam Vital signs and Labs for Last 24 Hours: Vital Signs Temp Pulse Pulse Resp BP BP Pulse Ox 12/31/22 08:00 97.9 F 101 H 20 141/76 H 100 12/31/22 06:35 97 12/31/22 04:00 99.0 F 93 H 20 129/77 99 12/31/22 00:00 97.9 F 98 H 22 133/77 96 12/30/22 20:00 12/30/22 20:00 98 F 122 H 22 125/79 96 12/30/22 18:39 12/30/22 17:05 95 12/30/22 15:20 98.5 F 109 H 20 123/59 L 91 L 12/30/22 14:05 110 H 12/30/22 14:05 115 H 12/30/22 14:05 12/30/22 11:10 109 H 12/30/22 11:10 109 H 12/30/22 11:10 96 12/30/22 10:46 85 22 122/67 90 L 12/30/22 10:40 98.1 F 89 19 122/67 12/30/22 09:30 90 124/78 95 12/30/22 09:00 91 H 120/52 L 95 FiO2 12/31/22 08:00 12/31/22 06:35 60 12/31/22 04:00 12/31/22 00:00 12/30/22 20:00 60 12/30/22 20:00 12/30/22 18:39 60 12/30/22 17:05 60 12/30/22 15:20 12/30/22 14:05 12/30/22 14:05 12/30/22 14:05 50 12/30/22 11:10 12/30/22 11:10 12/30/22 11:10 12/30/22 10:46 12/30/22 10:40 12/30/22 09:30 12/30/22 09:00 Intake and Output 12/30/22 12/31/22 12/31/22 19:59 03:59 11:59 Intake Total 60 / 300 240 / 300 Output Total 0 / 840 400 / 840 440 / 840 Balance 60 / -540 -400 / -540 -200 / -540 Intake: Intake, Oral Amount 60 / 300 240 / 300 Output: Output, Urine Amount 0 / 840 400 / 840 440 / 840 Other: Number of Unmeasured Voids 1 Weight 182 lb 6.991 oz Patient Weight 12/31/22 11:59 Weight 182 lb 6.991 oz Laboratory Results - last 24 hr 12/30/22 08:35: WBC 16.9 H, RBC 4.02 L, Hgb 12.9, Hct 40.7, MCV 101.4 H, MCH 32.1 H, MCHC 31.7 L, RDW 15.2, Plt Count 290 D, MPV 9.5, Neut % (Auto) 88.7 H, Lymph % (Auto) 4.6 L, [place] % (Auto) 6.3, Eos % (Auto) 0.0 L, Baso % (Auto) 0.3, Neut # (Auto) 15.0 H, Lymph # (Auto) 0.8, [place] # (Auto) 1.1 H, Eos # (Auto) 0.0, Baso # (Auto) 0.0, Total Counted 100, Neutrophils % (Manual) 90 H, Lymphocytes % (Manual) 5 L, Monocytes % (Manual) 5, Platelet Estimate Normal, RBC Morphology Not Reportable 12/30/22 08:35: Sodium 142, Potassium 4.5, Chloride 103, Carbon Dioxide 27, Anion Gap 16.5 H, BUN 32 H, Creatinine 1.20 H, Estimated Creat Clear 52, Estimated GFR 45 L, Est GFR ( Amer) 54 L, Glucose 318 H, Calcium 9.0, Total Bilirubin 0.4, AST 32 D, ALT 31 D, Alkaline Phosphatase 90, Troponin I 0.04 H, Total Protein 6.7, Albumin 3.9, Globulin 2.8, Albumin/Globulin Ratio 1.4 12/30/22 08:35: Procalcitonin 0.044 12/30/22 08:46: Specimen Source Left radial, O2 % 4.5, ABG pH 7.32 L, ABG pCO2 46.4 H, ABG pO2 62.0 L, ABG HCO3 23.5, ABG Total CO2 24.9, ABG O2 Saturation 90, ABG Base Excess -2.6 L, Luca Test Acceptable 12/30/22 08:53: Lactate 3.2 H 12/30/22 09:16: SARS-CoV-2 (PCR) Detected A, Influenza A Untype (PCR) Not detected, Influenza Type B (PCR) Not detected 12/30/22 12:00: Troponin I 0.12 H 12/30/22 13:40: Lactate 1.9 12/30/22 14:45: Troponin I 0.18 H 12/30/22 17:58: Specimen Source Left radial, O2 % 60, ABG pH 7.33 L, ABG pCO2 43.4, ABG pO2 81.6, ABG HCO3 22.2, ABG Total CO2 23.5, ABG O2 Saturation 95, ABG Base Excess -3.8 L, Luca Test Y 12/30/22 20:45: POC Glucose 388 H* 12/31/22 07:10: WBC 9.5 D, RBC 3.68 L, Hgb 11.9 L, Hct 36.9 L, MCV 100.5 H, MCH 32.4 H, MCHC 32.3, RDW 15.3, Plt Count 238, MPV 9.8, Neut % (Auto) 85.6 H, Lymph % (Auto) 7.4 L, [place] % (Auto) 6.6, Eos % (Auto) 0.2, Baso % (Auto) 0.3, Neut # (Auto) 8.1 H, Lymph # (Auto) 0.7, [place] # (Auto) 0.6, Eos # (Auto) 0.0, Baso # (Auto) 0.0, Total Counted 100, Neutrophils % (Manual) 87 H, Lymphocytes % (Manual) 8 L, Monocytes % (Manual) 5, Platelet Estimate Normal, Macrocytosis 1+ 12/31/22 07:10: Sodium 145, Potassium 4.3, Chloride 106, Carbon
[2022-12-31 11:59] LABS: POC Glucose,Bedside 261 (70-110)
[2022-12-31 11:59] LABS: POC Glucose,Bedside 146 (70-110)
--- NOTE | 2022-12-31 17:45 | PC.NURSE ---
pt has done well this shift, rested majority of the day. up to chair for around 2 hrs. vapotherm at 30L, notified RT, plan to wean o2 again around 1800.
[2022-12-31 18:47] LABS: POC Glucose,Bedside 148 (70-110)
[2022-12-31 20:23] LABS: POC Glucose,Bedside 266 (70-110)
[2023-01-01] VITALS (13 sets, daily range): BP systolic 109–138; BP diastolic 52–89; PULSE 76–105; RESP 16–28; TEMP 36.6–36.8; O2SAT 93–96; BMI 31.8
[2023-01-01 05:42] LABS: POC Glucose,Bedside 272 (70-110)
--- NOTE | 2023-01-01 05:59 | PC.NURSE ---
Pt aox3, on Vapotherm 20L 40% on CPOX, UP with assist times one to the BSC. She got a dose of morphine and ativan last night to help with her anxiety and breathing. Sob with movement.
[2023-01-01 07:03] LABS: Basophils % 0.2 % (0.1-2.0); Eosinophils # 0.1 K/mm3 (0.0-0.4); Eosinophils % 0.6 % (0.1-12.0); Hematocrit 38.8 % (37.0-47.0); Hemoglobin 12.2 g/dL (12.2-16.2); Lymphocytes # 0.7 K/mm3 (0.7-4.5); Lymphocytes % 5.8 % (10-50); Mean Corpuscular HGB Conc 31.3 g/dL (31.8-35.4); Mean Corpuscular Hemoglobin 31.8 pg (27.0-31.2); Mean Corpuscular Volume 101.6 fl (81-99); Mean Platelet Volume 10.3 fl (7.4-10.4); Monocytes # 0.4 K/mm3 (0.1-1.0); Monocytes % 3.3 % (1.7-9.3); Neutrophils # 10.2 K/mm3 (1.8-7.8); Neutrophils % 90.1 % (37.0-80.0); Platelet Count 239 K/mm3 (142-424); Red Blood Count 3.82 M/mm3 (4.20-5.40); Red Cell Distribution Width 15.1 % (11.5-17.5); White Blood Count 11.3 K/mm3 (4.8-10.8)
[2023-01-01 07:04] LABS: MANUAL DIFFERENTIAL MANUAL DIFFERENTIAL (MANUAL DIFF)
[2023-01-01 07:09] LABS: Chloride 104 mmol/L (98-107)
[2023-01-01 07:10] LABS: Potassium 4.7 mmoL/L (3.5-5.1); Sodium 142 mmol/L (136-145)
[2023-01-01 07:12] LABS: Blood Urea Nitrogen 46 mg/dl (7-17); Creatinine Clearance Estimated 68 mL/min (50-200); Estimated Glomerular Filt Rate 55 ml/min (>60); GFR (African American) 67 ML/MIN (>60)
[2023-01-01 07:13] LABS: Anion Gap 12.7 mEq/L (5-15); Calcium 9.1 mg/dl (8.4-10.2); Carbon Dioxide 30 mmol/L (22.0-30.0); Glucose 243 mg/dl (74-100)
[2023-01-01 07:34] LABS: Lymphocytes % 7 % (10-50); Monocytes % 5 % (2-9); Neutrophils % 88 % (42-76); Total Cells Counted 100
[2023-01-01 07:35] LABS: Anisocytosis 1+; Macrocytosis 1+; Ovalocytes 1+; Platelet Estimate Normal
--- NOTE | 2023-01-01 08:19 | XR_ITS ---
FINAL REPORT CLINICAL HISTORY: f/u icu exam COMPARISON: 12/30/2022 FINDINGS: A single portable view of the chest was obtained. The heart size and pulmonary vascularity are within normal limits. The mediastinum is within normal limits. There are partially improved pulmonary opacities which may represent improved pneumonia or edema. The bony thorax is intact. IMPRESSION: Partially improved pulmonary opacities may represent improving pneumonia or edema. Reviewed, Interpreted and Dictated by Thanh Jones III, MD Transcribed by Nirmala Harrison Authenticated and [facility]
--- NOTE | 2023-01-01 08:19 | EXP.ACUTE.PN ---
Subjective *Date: 01/01/23 *Time: 08:19 Interval history: Patient did fairly well overnight. She is been able to be weaned down from Vapotherm to 6 L nasal cannula with O2 sats in the mid 90s percent. Respiratory nursing stated that she is a little bit sluggish in response to questions and did not really eat much breakfast. She herself has no complaints. Reports that she is not feeling hungry and feels tired. Medical Exam Vital signs and Labs for Last 24 Hours: Vital Signs Temp Pulse Resp BP Pulse Ox FiO2 01/01/23 07:46 97.9 F 99 H 16 138/52 L 96 01/01/23 06:45 95 40 01/01/23 03:58 98.0 F 87 28 H 130/89 95 12/31/22 20:00 95 12/31/22 20:00 98.2 F 96 H 34 H 143/58 H 93 L 12/31/22 18:55 40 12/31/22 16:00 98.3 F 87 28 H 115/67 97 12/31/22 12:00 98.1 F 82 22 113/68 97 12/31/22 11:48 40 Intake and Output 12/31/22 01/01/23 01/01/23 19:59 03:59 11:59 Intake Total 480 / 840 360 / 840 Output Total 450 / 1800 1150 / 1800 200 / 1800 Balance 30 / -960 -1150 / -960 160 / -960 Intake: Intake, Oral Amount 480 / 840 360 / 840 Output: Output, Urine Amount 450 / 1800 1150 / 1800 200 / 1800 Other: Number of Unmeasured Voids 1 1 Weight 173 lb 3.2 oz Patient Weight 01/01/23 11:59 Weight 173 lb 3.2 oz Laboratory Results - last 24 hr 12/31/22 05:59: POC Glucose 146 H 12/31/22 07:10: Total Counted 100, Neutrophils % (Manual) 87 H, Lymphocytes % (Manual) 8 L, Monocytes % (Manual) 5, Platelet Estimate Normal, Macrocytosis 1+ 12/31/22 11:49: POC Glucose 261 H 12/31/22 16:31: POC Glucose 148 H 12/31/22 20:00: POC Glucose 266 H 01/01/23 05:35: POC Glucose 272 H 01/01/23 06:41: WBC 11.3 H, RBC 3.82 L, Hgb 12.2, Hct 38.8, MCV 101.6 H, MCH 31.8 H, MCHC 31.3 L, RDW 15.1, Plt Count 239, MPV 10.3, Neut % (Auto) 90.1 H, Lymph % (Auto) 5.8 L, [place] % (Auto) 3.3, Eos % (Auto) 0.6, Baso % (Auto) 0.2, Neut # (Auto) 10.2 H, Lymph # (Auto) 0.7, [place] # (Auto) 0.4, Eos # (Auto) 0.1, Baso # (Auto) 0.0, Total Counted 100, Neutrophils % (Manual) 88 H, Lymphocytes % (Manual) 7 L, Monocytes % (Manual) 5, Platelet Estimate Normal, Anisocytosis 1+, Macrocytosis 1+, Ovalocytes 1+ 01/01/23 06:41: Sodium 142, Potassium 4.7, Chloride 104, Carbon Dioxide 30, Anion Gap 12.7, BUN 46 H D, Creatinine 1.00, Estimated Creat Clear 68, Estimated GFR 55 L, Est GFR ( Amer) 67, Glucose 243 H D, Calcium 9.1 I & O for Labs for Last 24 Hours: Intake & Output 12/29/22 12/30/22 12/31/22 01/01/23 11:59 11:59 11:59 11:59 Intake Total 300 / 300 840 / 840 Output Total 1690 / 1940 1800 / 1800 Balance -1390 / -1640 -960 / -960 Weight 182 lb 7 oz 182 lb 6.991 oz 173 lb 3.2 oz Comment:: Patient is alert. Is a little bit sluggish to answer questions but is oriented x3. Heart rate regular. Extremities warm and well perfused. No edema. Lungs have rhonchi and slight increase in pulmonary sounds in the right middle and lower lung brizuela over yesterday's exam. Otherwise symmetric air entry. Abdomen soft. Alert and oriented x3. Assessment and Plan *Assessment and plan (1) COPD exacerbation: Status: Acute Category: Medical Code(s): J44.1 - Chronic obstructive pulmonary disease with (acute) exacerbation (2) Diastolic dysfunction: Status: Chronic Category: Medical Code(s): I51.89 - Other ill-defined heart diseases (3) COPD (chronic obstructive pulmonary disease): Status: Chronic Qualifiers: COPD type: emphysema Emphysema type: unspecified Qualified Code(s): J43.9 - Emphysema, unspecified Category: Medical Code(s): J44.9 - Chronic obstructive pulmonary disease, unspecified (4) Tobacco use: Status: Chronic Category: Social Hx Code(s): Z72.0 - Tobacco use (5) COVID-19: Status: Acute Category: Medical Code(s): U07.1 - COVID-19 Plan Given patient's worsening oxygen
--- NOTE | 2023-01-01 08:37 | PC.NURSE ---
RESP CARE NOTE: Pt removed from vapotherm 20L/40% FIO2, and placed on 4 lpm nasal cannula. SPO2 remains at 95%, and will continue to monitor and wean oxygen as necessary.
--- NOTE | 2023-01-01 09:49 | EXP.PULM.CON ---
History of Present Illness History of present illness: Ms. Rivers is a pleasant 67-year-old female current smoker greater than 2 packs a day history of lung cancer status postradiation surveillance, recently diagnosed with COVID-19 pneumonia discharged on Molnupiravirpresented with worsening respiratory status and pulmonary was called for further evaluation [facility] Disclaimer: The information contained in this section may have been updated after the patient was seen, as this information can be updated by other users. Medical History Acute respiratory failure with hypoxia CAD (coronary artery disease) COPD (chronic obstructive pulmonary disease) Diabetes mellitus Diastolic dysfunction ACUÑA (dyspnea on exertion) History of placement of stent in LAD coronary artery HLD (hyperlipidemia) HTN (hypertension) PAD (peripheral artery disease) Pneumonia due to COVID-19 virus Subclavian artery stenosis, left Tobacco use Surgical History Hx of right coronary artery stent placement Family History Other No significant family history Social History (Updated 12/30/22 @ 13:03 by Gena Craven RN) Smoking Status: Current every day smoker tobacco type: cigarettes packs per day: 1 second hand exposure: No alcohol intake: never substance use type: denies use current occupational status: retired Travel in the last 8 weeks: None household members: none housing: house current occupational exposures/hazards: No caffeine: Yes Review of Systems Constitutional Constitutional: Reports anorexia, Reports body ache(s) and Reports fatigue Eyes Eyes: Denies eye discharge, Denies dry eyes, Denies irritation and Denies itchy eyes ENT Ears, Nose, Mouth, and Throat: Denies epistaxis, Denies facial pain, Denies lip swelling and Denies throat swelling *Cardiovascular Cardiovascular: Reports dyspnea and Reports dyspnea on exertion *Respiratory Respiratory: Reports chest congestion, Reports cough, Reports dyspnea, Reports dyspnea on exertion, Reports excessive phlegm production, Denies hemoptysis, Denies pain on inspiration and Reports wheezing *Gastrointestinal Gastrointestinal: Denies abdominal pain, Denies belching and Denies cramping *Musculoskeletal Musculoskeletal: Reports back pain, Reports myalgias and Reports other (No small joint swelling or Pain) Psychiatric Psychiatric: Reports anxiety, Denies homicidal ideation and Denies suicidal ideation Endocrine Endocrine: Reports fatigue and Denies heat intolerance Hematologic/Lymphatic Hematologic/Lymphatic: Denies easy bleeding and Denies lymphadenopathy Allergic/Immunologic Allergic/Immunologic: Denies itchy eyes, Denies lip swelling, Denies throat swelling and Reports wheezing Pulmonology Exam Inpatient Vital signs and Labs for Last 24 Hours: Temp Pulse Resp BP Pulse Ox FiO2 97.9 F 80 16 138/52 L 96 40 01/01/23 07:46 01/01/23 08:36 01/01/23 07:46 01/01/23 07:46 01/01/23 07:46 01/01/23 06:45 Laboratory Results - last 24 hr 12/31/22 05:59: POC Glucose 146 H 12/31/22 11:49: POC Glucose 261 H 12/31/22 16:31: POC Glucose 148 H 12/31/22 20:00: POC Glucose 266 H 01/01/23 05:35: POC Glucose 272 H 01/01/23 06:41: WBC 11.3 H, RBC 3.82 L, Hgb 12.2, Hct 38.8, MCV 101.6 H, MCH 31.8 H, MCHC 31.3 L, RDW 15.1, Plt Count 239, MPV 10.3, Neut % (Auto) 90.1 H, Lymph % (Auto) 5.8 L, [place] % (Auto) 3.3, Eos % (Auto) 0.6, Baso % (Auto) 0.2, Neut # (Auto) 10.2 H, Lymph # (Auto) 0.7, [place] # (Auto) 0.4, Eos # (Auto) 0.1, Baso # (Auto) 0.0, Total Counted 100, Neutrophils % (Manual) 88 H, Lymphocytes % (Manual) 7 L, Monocytes % (Manual) 5, Platelet Estimate Normal, Anisocytosis 1+, Macrocytosis 1+, Ovalocytes 1+ 01/01/23 06:41: Sodium 142, Potassium 4.7, Chloride 104, Carbon Dioxide 30, Anion Gap 12.7, BUN 46 H D, Creatinine 1.00, Estimated Creat Clear 68, Estimated GFR 55 L, Est GFR ( A
--- NOTE | 2023-01-01 09:54 | HMH.OTEV ---
OT Inpatient Evaluation Rehab OT IP Evaluation Start: 01/01/23 08:19 Freq: ONCE Status: Active Protocol: Document 01/01/23 09:47 [facility] (Rec: 01/01/23 09:54 [facility] [id number]) Rehab OT IP Assessment Subjective History Pt oriented x 3 on arrival. Pt agreeable to engage in therapy evaluation. Pt was admitted on 12/30/22 due to worsening SOB from COVID-19. 67-year-old white female recently discharged on 12/29/22 from [facility] after a 2-day stay for COPD exacerbation with a diagnosis of COVID-19 infection. She was discharged with antibiotics, nebulizer treatments and antiviral medication. She was tenuous to go home but was fairly insistent on being discharged and was discharged in the care of her family. She came back to the ER this morning stating that in spite of her oxygen at 4 L, nebulized treatments and other medication she was increasingly short of breath. Prior to being in the hospital , pt lived with her son. Pt claims she was independent with all ADLs and IADLs. Pt still drove. She did not require any type of AE during ambulation. Pt has a past medical history of: CAD (coronary artery disease) COPD (chronic obstructive pulmonary disease) Diabetes mellitus Diastolic dysfunction ACUÑA (dyspnea on exertion) History of placement of stent in LAD coronary artery HLD (hyperlipidemia) HTN (hypertension) PAD (peripheral artery disease ) Subclavian artery stenosis, left
--- NOTE | 2023-01-01 11:23 | HMH.PTEV ---
Physical Therapy Evaluation Rehab PT IP Evaluation Start: 01/01/23 08:19 Freq: ONCE Status: Active Protocol: Document 01/01/23 11:09 [facility] (Rec: 01/01/23 11:23 [email or web address] [id number]) Subjective/History History History Pt is a 67 year old female that was recently discharged home from [facility] on 12/29/2022 after a 2 day stay with COPD exacerbation and COVID pneumonia. Pt returned to the ED on 12/30/2022 with increased dyspnea depsite 4L O2 via nasal cannula. Pt was admitted for increasing oxygen requirement, diagnostic testing and inpatient treatment for COVID pneumonia. At baseline, pt lives at home with her son, states he is with her most of the day. Pt was independent with all B/ IADL's and did not use an AD for ambulation. Pt has a PMH significant for CAD (coronary artery disease) COPD (chronic obstructive pulmonary disease) Diabetes mellitus Diastolic dysfunction ACUÑA (dyspnea on exertion) History of placement of stent in LAD coronary artery HLD (hyperlipidemia) HTN (hypertension) PAD (peripheral artery disease ) Subclavian artery stenosis, left Tobacco use Subjective Subjective Pt presents supine in bed, pleasant and agreeable to therapy evaluation. Pt reports she continues to feel like she can't breathe. Denies reports of pain but states she has a little bit of a headache. Following evaluation, pt left seated in bed with call light and all needs within reach. Rehab PT IP Eval Objective Appearance Patient Behavior Appropriate Patient Orientation
[2023-01-01 11:49] LABS: POC Glucose,Bedside 232 (70-110)
--- NOTE | 2023-01-01 15:23 | EXP.CARD.CON ---
History of Present Illness History of Present Illness Consult date: 01/01/23 Requesting physician: Anselmo [place] Consult reason: shortness of breath Chief complaint: worsening dyspnea, recent copd exacerbation and covid-19 infection. History of present illness: Mrs. Rivers is a 67-year-old white female with past medical history of coronary artery disease, COPD with chronic hypoxic respiratory failure on 2 L home oxygen, non-small cell lung cancer left upper lobe status post radiation in 2014, diabetes mellitus, diastolic dysfunction, stenting of LAD, hyperlipidemia, hypertension, peripheral artery disease, left-sided subclavian artery stenosis and 2 pack/day smoker presented to hospital on 12/30/2022 with complaints of worsening shortness of breath. Patient was recently inpatient 12/27-12/29 with a diagnosis of COVID-19 and COPD exacerbation. Patient was discharged home on 12/29 with outpatient COVID therapy, antibiotics, steroids and home nebulizer treatments. Patient and family members report patient got worse Sunday night with increased shortness of breath and oxygen requirement increased which continued through Sunday morning prompting patient to return to emergency department. Upon return to ER EKG showed normal sinus rhythm with a rate of [address] elevation or depression. Chest x-ray showed opacities in the mid lung regions and both bases which may represent atelectasis or pneumonia. Patient continued to have worsening oxygen requirements and was transferred to a Ventimask and eventually Vapotherm. Patient was also initiated on IV remdesivir therapy for her worsening COVID status. Today patient was weaned down from Vapotherm to 6 L nasal cannula and oxygen saturation has remained in the mid 90s. Chest x-ray from this morning shows improving pulmonary infiltrates in the right middle lobe. Troponins have trended from 0.04-0.18. Cardiology was consulted today with concern for possible volume overload contributing to acute respiratory failure. Official echo is pending. Patient does report intermittent chest tightness since being sick, but denies currently. Overall patient is a poor historian [facility] Disclaimer: The information contained in this section may have been updated after the patient was seen, as this information can be updated by other users. Medical History Acute respiratory failure with hypoxia CAD (coronary artery disease) COPD (chronic obstructive pulmonary disease) Diabetes mellitus Diastolic dysfunction ACUÑA (dyspnea on exertion) History of placement of stent in LAD coronary artery HLD (hyperlipidemia) HTN (hypertension) PAD (peripheral artery disease) Pneumonia due to COVID-19 virus Subclavian artery stenosis, left Tobacco use Surgical History Hx of right coronary artery stent placement Family History Other No significant family history Social History (Updated 12/30/22 @ 13:03 by Gena Craven RN) Smoking Status: Current every day smoker tobacco type: cigarettes packs per day: 1 second hand exposure: No alcohol intake: never substance use type: denies use current occupational status: retired Travel in the last 8 weeks: None household members: none housing: house current occupational exposures/hazards: No caffeine: Yes Review of Systems Review of Systems Review of systems:: pertinent systems reviewed and negative unless documented below *Cardiovascular Cardiovascular: Reports chest pain and Reports dyspnea *Respiratory Respiratory: Reports dyspnea Exam Data for Last 24 hours Vital signs and Labs for Last 24 Hours: Temp Pulse Resp BP Pulse Ox FiO2 98.3 F 90 18 109/67 L 95 40 01/01/23 11:30 01/01/23 13:38 01/01/23 11:30 01/01/23 11:30 01/01/23 11:30 01/01/23 06:45 Laboratory Results - last 24 hr 12/31/22 16:31: POC Glucose 148 H 12/31/22 20:0
[2023-01-01 17:11] LABS: POC Glucose,Bedside 259 (70-110)
--- NOTE | 2023-01-01 17:29 | PC.NURSE ---
Patient weaned from vapotherm to 2LNC during shift. Lung sounds expiratory wheezes on ascultation. No pain reported but moments of shortness of breath noted. Breathing treatments given prn and relief noted. Diuretics given and 1400 output totaled. No other changes noted.
[2023-01-01 20:28] LABS: POC Glucose,Bedside 236 (70-110)
[2023-01-02] VITALS (10 sets, daily range): BP systolic 104–130; BP diastolic 53–75; PULSE 75–112; RESP 18–26; TEMP 36.7–36.8; O2SAT 91–97; BMI 31.1
--- NOTE | 2023-01-02 04:10 | PC.NURSE ---
pt. has one episode of nause after given nystatin. Called md and had zofran ordered and given. No other changes noted.
[2023-01-02 05:23] LABS: POC Glucose,Bedside 156 (70-110)
[2023-01-02 07:02] LABS: Basophils # 0.1 K/mm3 (0-0.2); Basophils % 0.6 % (0.1-2.0); Eosinophils % 0.2 % (0.1-12.0); Hematocrit 41.2 % (37.0-47.0); Lymphocytes # 1.3 K/mm3 (0.7-4.5); Lymphocytes % 11.6 % (10-50); Mean Corpuscular HGB Conc 31.5 g/dL (31.8-35.4); Mean Corpuscular Volume 101.4 fl (81-99); Mean Platelet Volume 9.6 fl (7.4-10.4); Monocytes # 0.6 K/mm3 (0.1-1.0); Monocytes % 5.3 % (1.7-9.3); Neutrophils # 9.5 K/mm3 (1.8-7.8); Neutrophils % 82.4 % (37.0-80.0); Platelet Count 252 K/mm3 (142-424); Red Blood Count 4.06 M/mm3 (4.20-5.40); Red Cell Distribution Width 15.2 % (11.5-17.5); White Blood Count 11.6 K/mm3 (4.8-10.8)
[2023-01-02 07:07] LABS: Chloride 96 mmol/L (98-107); Sodium 139 mmol/L (136-145)
[2023-01-02 07:08] LABS: Potassium 3.4 mmoL/L (3.5-5.1)
[2023-01-02 07:10] LABS: Alanine Aminotransferase 24 U/L (12-78); Albumin Level 3.2 g/dl (3.5-5.0); Albumin/Globulin Ratio 1.3 (1.1-1.8); Alkaline Phosphatase 68 U/L (38-126); Anion Gap 10.4 mEq/L (5-15); Aspartate Amino Transferase 21 U/L (14-36); Bilirubin,Total 0.5 mg/dl (0.2-1.3); Blood Urea Nitrogen 50 mg/dl (7-17); Calcium 8.6 mg/dl (8.4-10.2); Carbon Dioxide 36 mmol/L (22.0-30.0); Creatinine Clearance Estimated 60 mL/min (50-200); Estimated Glomerular Filt Rate 50 ml/min (>60); GFR (African American) 60 ML/MIN (>60); Globulin 2.4 g/dL (1.3-3.2); Glucose 147 mg/dl (74-100); Total Protein,Serum 5.6 g/dl (6.3-8.2)
--- NOTE | 2023-01-02 08:15 | EXP.ACUTE.PN ---
Subjective *Date: 01/02/23 *Time: 08:15 Interval history: Overall patient feels much better. Has been able to be weaned down to 2 L nasal cannula. Slept well. Has eaten well this morning. Medical Exam Vital signs and Labs for Last 24 Hours: Vital Signs Temp Pulse Pulse Resp BP Pulse Ox FiO2 01/02/23 08:00 98.2 F 85 18 104/53 L 95 01/02/23 05:58 76 01/02/23 05:58 81 01/02/23 05:58 92 L 01/02/23 04:00 98.1 F 75 20 110/68 96 01/02/23 01:40 81 01/02/23 01:40 81 01/02/23 00:00 98.1 F 80 20 108/64 L 92 L 2 01/01/23 20:00 96 01/01/23 21:36 100 H 01/01/23 21:36 105 H 01/01/23 20:00 98.0 F 84 26 H 116/67 94 L 01/01/23 17:52 83 01/01/23 17:52 83 01/01/23 17:52 93 L 01/01/23 15:44 80 01/01/23 15:44 84 01/01/23 15:44 94 L 01/01/23 15:54 97.9 F 83 18 122/71 96 01/01/23 13:38 90 01/01/23 13:38 89 01/01/23 11:30 98.3 F 83 18 109/67 L 95 01/01/23 10:08 94 L 01/01/23 10:07 77 01/01/23 10:07 76 01/01/23 08:36 80 01/01/23 08:36 77 Intake and Output 01/01/23 01/02/23 01/02/23 19:59 03:59 11:59 Intake Total 640 / 880 240 / 880 Output Total 1850 / 2600 0 / 2600 750 / 2600 Balance -1210 / -1720 0 / -1720 -510 / -1720 Intake: Intake, Oral Amount 240 / 480 240 / 480 Intake, Total IV Amount 400 / 400 Azithromycin 500 mg In 0.9 % 250 / 250 Sodium Chloride 250 ml @ 250 mls/hr IV Q24H [facility] Rx#:[id number] Ceftriaxone 1 gm 1 gm In 0.9 % 50 / 50 Sodium Chloride 50 ml @ 100 mls /hr IV Q24H [facility] Rx#:[id number] Remdesivir 100 mg In 0.9 % 100 / 100 Sodium Chloride 100 ml @ 100 mls/hr IV Q24H [facility] Rx#:[id number] Output: Output, Urine Amount 1850 / 2600 0 / 2600 750 / 2600 Other: Number of Unmeasured Voids 1 1 1 Weight 173 lb 1.006 oz 168 lb 13.985 oz Patient Weight 01/02/23 11:59 Weight 168 lb 13.985 oz Laboratory Results - last 24 hr 01/01/23 11:40: POC Glucose 232 H 01/01/23 16:45: POC Glucose 259 H 01/01/23 20:21: POC Glucose 236 H 01/02/23 05:16: POC Glucose 156 H 01/02/23 06:55: WBC 11.6 H, RBC 4.06 L, Hgb 13.0, Hct 41.2, MCV 101.4 H, MCH 32.0 H, MCHC 31.5 L, RDW 15.2, Plt Count 252, MPV 9.6, Neut % (Auto) 82.4 H, Lymph % (Auto) 11.6, [place] % (Auto) 5.3, Eos % (Auto) 0.2, Baso % (Auto) 0.6, Neut # (Auto) 9.5 H, Lymph # (Auto) 1.3, [place] # (Auto) 0.6, Eos # (Auto) 0.0, Baso # (Auto) 0.1 01/02/23 06:55: Sodium 139, Potassium 3.4 L D, Chloride 96 L, Carbon Dioxide 36 H, Anion Gap 10.4, BUN 50 H, Creatinine 1.10 H, Estimated Creat Clear 60, Estimated GFR 50 L, Est GFR ( Amer) 60, Glucose 147 H, Calcium 8.6, Total Bilirubin 0.5, AST 21, ALT 24, Alkaline Phosphatase 68, Total Protein 5.6 L, Albumin 3.2 L, Globulin 2.4, Albumin/Globulin Ratio 1.3 I & O for Labs for Last 24 Hours: Intake & Output 12/30/22 12/31/22 01/01/23 01/02/23 11:59 11:59 11:59 11:59 Intake Total 300 / 300 840 / 840 880 / 880 Output Total 1690 / 1940 1800 / 1800 2600 / 2600 Balance -1390 / -1640 -960 / -960 -1720 / -1720 Weight 182 lb 7 oz 182 lb 6.991 oz 173 lb 3.2 oz 168 lb 13.985 oz Microbiology Reports for the Last 24 Hours: Microbiology 01/01/23 10:23 Sputum - Expectorated Sputum Gram Stain - Final 01/01/23 10:23 Sputum - Expectorated Sputum Sputum Culture - Preliminary 12/30/22 09:25 Blood Blood Culture - Preliminary NO GROWTH AFTER 48 HOURS 12/30/22 09:15 Blood Blood Culture - Preliminary NO GROWTH AFTER 48 HOURS Comment:: Alert, pleasant. Talkative. Looks great. Lungs have rhonchorous air sounds but good air movement. Heart rate regular. Abdomen soft and nontender. No edema or clubbing. Neurologically intact. Assessment and Plan *Assessment and plan (1) Heart failure with
--- NOTE | 2023-01-02 09:33 | EXP.PULM.PN ---
Subjective *Date: 01/02/23 *Time: 10:35 Interval history: No acute respiratory vents overnight. Patient admits continued improvement in her respiratory symptoms Pulmonology Exam Inpatient Vital signs and Labs for Last 24 Hours: Temp Pulse Resp BP Pulse Ox FiO2 98.2 F 85 18 104/53 L 95 2 01/02/23 08:00 01/02/23 08:00 01/02/23 08:00 01/02/23 08:00 01/02/23 08:00 01/02/23 00:00 Laboratory Results - last 24 hr 01/01/23 11:40: POC Glucose 232 H 01/01/23 16:45: POC Glucose 259 H 01/01/23 20:21: POC Glucose 236 H 01/02/23 05:16: POC Glucose 156 H 01/02/23 06:55: WBC 11.6 H, RBC 4.06 L, Hgb 13.0, Hct 41.2, MCV 101.4 H, MCH 32.0 H, MCHC 31.5 L, RDW 15.2, Plt Count 252, MPV 9.6, Neut % (Auto) 82.4 H, Lymph % (Auto) 11.6, [place] % (Auto) 5.3, Eos % (Auto) 0.2, Baso % (Auto) 0.6, Neut # (Auto) 9.5 H, Lymph # (Auto) 1.3, [place] # (Auto) 0.6, Eos # (Auto) 0.0, Baso # (Auto) 0.1 01/02/23 06:55: Sodium 139, Potassium 3.4 L D, Chloride 96 L, Carbon Dioxide 36 H, Anion Gap 10.4, BUN 50 H, Creatinine 1.10 H, Estimated Creat Clear 60, Estimated GFR 50 L, Est GFR ( Amer) 60, Glucose 147 H, Calcium 8.6, Total Bilirubin 0.5, AST 21, ALT 24, Alkaline Phosphatase 68, Total Protein 5.6 L, Albumin 3.2 L, Globulin 2.4, Albumin/Globulin Ratio 1.3 I & O for Labs for Last 24 Hours: Intake & Output 12/30/22 12/31/22 01/01/23 01/02/23 23:59 23:59 23:59 23:59 Intake Total 60 / 60 720 / 720 1000 / 1000 240 / 240 Output Total 200 / 400 2390 / 2590 2750 / 2750 750 / 750 Balance -140 / -340 -1670 / -1870 -1750 / -1750 -510 / -510 Weight 182 lb 7 oz 182 lb 6.991 oz 173 lb 1.006 oz 168 lb 13.985 oz Microbiology Reports for the Last 24 Hours: Microbiology 01/01/23 10:23 Sputum - Expectorated Sputum Gram Stain - Final 01/01/23 10:23 Sputum - Expectorated Sputum Sputum Culture - Preliminary 12/30/22 09:25 Blood Blood Culture - Preliminary NO GROWTH AFTER 48 HOURS 12/30/22 09:15 Blood Blood Culture - Preliminary NO GROWTH AFTER 48 HOURS Constitutional: Present moderate distress Head: Present normocephalic and atraumatic ENT: Present normal exam, normal oropharynx and mucous membranes moist Neck: Present normal inspection and full ROM Respiratory: Present respiratory distress, rhonchi, stridor, wheezes, crackles, diminished air movement and able to speak in complete sentences; Absent accessory muscle use Cardiac: Present S1/S2, Tachycardia and radial pulses present GI: Present soft and distention; Absent tenderness or guarding Rectal (female): Present deferred (female): Present deferred Skin: Present intact; Absent cyanosis or jaundice Neuro: Present alert, awake and oriented x 3 Extremities: Present normal inspection; Absent clubbing or cyanosis Psychiatric: Present normal affect and cooperative Assessment and Plan *Assessment and plan (1) Acute exacerbation of chronic obstructive pulmonary disease: Status: Acute Category: Medical Code(s): J44.1 - Chronic obstructive pulmonary disease with (acute) exacerbation (2) Pneumonia due to COVID-19 virus: Status: Acute Category: Medical Code(s): U07.1 - COVID-19; J12.82 - Pneumonia due to coronavirus disease 2019 (3) Acute respiratory failure with hypoxia: Status: Acute Category: Medical Code(s): J96.01 - Acute respiratory failure with hypoxia Plan Current smoker greater than [id number] smoking history, chronic hypoxic respiratory failure on 2 L home oxygen. History of non-small cell lung cancer left upper lobe status post radiation in [address]/PET scans, most recent PET scan from September 2022 concerning right upper lobe pulmonary nodule 0.8 cm in size FGD avid opted for a 3-month follow-up. History of CAD status post stent in LAD. Diastolic dysfunction. Most recent echo 2018 concentric LV hypertrophy with EF of 50%. Mild MR and TR. Biat
--- NOTE | 2023-01-02 10:22 | EXP.CARD.PN ---
Subjective Subjective Date: 01/02/23 Time: 08:00 Principal diagnosis: COPD exacerbation, acute respiratory failure, volume overload Interval history: Patient reports feeling better, maintaining oxygen saturation greater than 92% on 2 L nasal cannula, has a negative balance of 1720 mL. Respiratory status improved. AM labs reviewed. Family at bedside. Exam Data for Last 24 hours Vital signs and Labs for Last 24 Hours: Temp Pulse Resp BP Pulse Ox FiO2 98.2 F 85 18 104/53 L 95 2 01/02/23 08:00 01/02/23 08:00 01/02/23 08:00 01/02/23 08:00 01/02/23 08:00 01/02/23 00:00 Laboratory Results - last 24 hr 01/01/23 11:40: POC Glucose 232 H 01/01/23 16:45: POC Glucose 259 H 01/01/23 20:21: POC Glucose 236 H 01/02/23 05:16: POC Glucose 156 H 01/02/23 06:55: WBC 11.6 H, RBC 4.06 L, Hgb 13.0, Hct 41.2, MCV 101.4 H, MCH 32.0 H, MCHC 31.5 L, RDW 15.2, Plt Count 252, MPV 9.6, Neut % (Auto) 82.4 H, Lymph % (Auto) 11.6, [place] % (Auto) 5.3, Eos % (Auto) 0.2, Baso % (Auto) 0.6, Neut # (Auto) 9.5 H, Lymph # (Auto) 1.3, [place] # (Auto) 0.6, Eos # (Auto) 0.0, Baso # (Auto) 0.1 01/02/23 06:55: Sodium 139, Potassium 3.4 L D, Chloride 96 L, Carbon Dioxide 36 H, Anion Gap 10.4, BUN 50 H, Creatinine 1.10 H, Estimated Creat Clear 60, Estimated GFR 50 L, Est GFR ( Amer) 60, Glucose 147 H, Calcium 8.6, Total Bilirubin 0.5, AST 21, ALT 24, Alkaline Phosphatase 68, Total Protein 5.6 L, Albumin 3.2 L, Globulin 2.4, Albumin/Globulin Ratio 1.3 I & O for Last 24 hours: Intake & Output 12/30/22 12/31/22 01/01/23 04/18/23 23:59 23:59 23:59 23:59 Intake Total 60 / 60 720 / 720 1000 / 1000 240 / 240 Output Total 200 / 400 2390 / 2590 2750 / 2750 750 / 750 Balance -140 / -340 -1670 / -1870 -1750 / -1750 -510 / -510 Weight 182 lb 7 oz 182 lb 6.991 oz 173 lb 1.006 oz 168 lb 13.985 oz Microbiology Reports for the Last 24 Hours: Microbiology 01/01/23 10:23 Sputum - Expectorated Sputum Gram Stain - Final 01/01/23 10:23 Sputum - Expectorated Sputum Sputum Culture - Preliminary 12/30/22 09:25 Blood Blood Culture - Preliminary NO GROWTH AFTER 48 HOURS 12/30/22 09:15 Blood Blood Culture - Preliminary NO GROWTH AFTER 48 HOURS Constitutional Constitutional: no acute distress *Routine Respiratory Exam Respiratory: Present wheezes and symmetric chest movement *Routine Cardiovascular Exam Cardiovascular: Present RRR, Normal S1 and Normal S2 *Routine Abdominal Exam Abdominal: Present soft and normoactive bowel sounds; Absent tenderness *Routine Extremities Exam Extremities: Present full ROM and normal capillary refill; Absent edema *Routine Skin Exam Skin: Present intact, dry and warm Detailed Neck Exam: Thyroids Thyroid: Absent bruit Progress Note: A&P Assessment and plan (1) Acute exacerbation of chronic obstructive pulmonary disease: Status: Acute (2) Pneumonia due to COVID-19 virus: Status: Acute (3) Acute respiratory failure with hypoxia: Status: Acute Assessment and Plan Assessment and Plan for All Diagnoses:: Acute hypoxic respiratory failure -Multifactorial in nature: COVID-19 positive, bilateral pulmonary infiltrates, COPD exacerbation, volume overload -Pulmonary is following -Chest x-ray 01/01/2022 shows partially improved pulmonary opacities may represent improving pneumonia or edema 01/02/2023: Respiratory status greatly improved, patient maintaining oxygen saturation greater than 92% on 2 L nasal cannula HFPEF/Diastolic Dysfunction Grade II/Pulmonary HTN -Echo from 2019: EF 55% with no regional wall motion abnormality noted, grade 1 diastolic dysfunction, thickened and calcified aortic valve without evidence of aortic stenosis, mild mitral and tricuspid regurg -Preliminary echo 01/01/2023 shows a reduced ejection fraction of 45 to 50%, mild to moderate mitral regurg, mild tricuspid regurg and RV systolic pressure of 40-45.? Official read is pending
--- NOTE | 2023-01-02 11:04 | SW/DCPLANNER ---
Addendum entered by Lily Schmidt 01/03/23 11:23: Mounika mosquera/ [facility] stated that services will start tomorrow. Addendum entered by Lily Schmidt 01/03/23 10:31: Patient information/order has been faxed to [facility]. Patient will discharge home today. Original Note: I spoke with patient's daughter (Zulay) regarding plans once medically stable for discharge. Zulay stated that she spoke with patient and other family members this AM and would prefer patient return home with home health services. I did discuss placement with Zulay and she stated that patient does not want that at this time and has shown improvement this AM. I will continue to follow up with patient/family and MD. Patient may discharge tomorrow: home health will be set up at discharge.
[2023-01-02 13:18] LABS: POC Glucose,Bedside 159 (70-110)
[2023-01-02 16:55] LABS: POC Glucose,Bedside 236 (70-110)
--- NOTE | 2023-01-02 17:38 | PC.NURSE ---
pt has done well this shift. no anxiety or labored breathing. pt tolerating o2 2L via nc with sats at 93%. pt up to bsc x1 assist as pt is still unsteady. pt advised to call for help before getting up, verbalized understanding. pt up to bedside chair for around 3 hrs. pt stated, she feels much better today. currently resting in bed, with no questions or concerns at this time. cb and personal items within reach.
[2023-01-02 21:02] LABS: POC Glucose,Bedside 319 (70-110)
[2023-01-03] VITALS: BP 98/44; PULSE 86; RESP 18; TEMP 36.7; O2SAT 92
--- NOTE | 2023-01-03 02:35 | PC.NURSE ---
No anxiety or labored breathing like the previous two nights, requiring morpine and anxiety medications. pt tolerating o2 2L via nc with sats in the 90's. pt up to bsc x1 assist as pt is still unsteady. pt advised to call for help before getting up, verbalized understanding. No issues noted.
[2023-01-03 04:00] VITALS: BP 131/78; PULSE 100; RESP 20; TEMP 36.6; O2SAT 93; BMI 30.4
[2023-01-03 05:16] LABS: POC Glucose,Bedside 165 (70-110)
[2023-01-03 06:17] VITALS: PULSE 85; PULSE 87; O2SAT 90
[2023-01-03 07:22] VITALS: BP 122/61; PULSE 91; RESP 22; TEMP 36.7; O2SAT 87
[2023-01-03 07:28] LABS: Chloride 93 mmol/L (98-107); Potassium 3.6 mmoL/L (3.5-5.1); Sodium 140 mmol/L (136-145)
[2023-01-03 07:29] LABS: Basophils # 0.1 K/mm3 (0-0.2); Basophils % 0.7 % (0.1-2.0); Eosinophils % 0.3 % (0.1-12.0); Hematocrit 42.6 % (37.0-47.0); Hemoglobin 13.6 g/dL (12.2-16.2); Lymphocytes # 1.5 K/mm3 (0.7-4.5); Lymphocytes % 11.5 % (10-50); Mean Corpuscular HGB Conc 31.9 g/dL (31.8-35.4); Mean Corpuscular Hemoglobin 32.3 pg (27.0-31.2); Mean Corpuscular Volume 101.3 fl (81-99); Mean Platelet Volume 9.9 fl (7.4-10.4); Monocytes # 0.8 K/mm3 (0.1-1.0); Monocytes % 5.9 % (1.7-9.3); Neutrophils # 10.7 K/mm3 (1.8-7.8); Neutrophils % 81.5 % (37.0-80.0); Platelet Count 278 K/mm3 (142-424); White Blood Count 13.2 K/mm3 (4.8-10.8)
[2023-01-03 07:30] LABS: Blood Urea Nitrogen 46 mg/dl (7-17); Creatinine Clearance Estimated 59 mL/min (50-200); Estimated Glomerular Filt Rate 50 ml/min (>60); GFR (African American) 60 ML/MIN (>60)
[2023-01-03 07:31] LABS: Alanine Aminotransferase 27 U/L (12-78); Albumin Level 3.5 g/dl (3.5-5.0); Albumin/Globulin Ratio 1.5 (1.1-1.8); Alkaline Phosphatase 73 U/L (38-126); Anion Gap 10.6 mEq/L (5-15); Aspartate Amino Transferase 22 U/L (14-36); Bilirubin,Total 0.5 mg/dl (0.2-1.3); Calcium 8.6 mg/dl (8.4-10.2); Carbon Dioxide 40 mmol/L (22.0-30.0); Globulin 2.4 g/dL (1.3-3.2); Glucose 151 mg/dl (74-100); Total Protein,Serum 5.9 g/dl (6.3-8.2)
--- NOTE | 2023-01-03 08:45 | EXP.CARD.PN ---
Subjective Subjective Date: 01/03/23 Time: 00:30 Principal diagnosis: COPD exacerbation, acute respiratory failure, volume overload Interval history: Doing well, maintaining oxygen sats > 90 on 2 liters O2. AM labs reviewed. Exam Data for Last 24 hours Vital signs and Labs for Last 24 Hours: Temp Pulse Resp BP Pulse Ox FiO2 98.1 F 91 H 22 122/61 87 L 2 01/03/23 07:22 01/03/23 07:22 01/03/23 07:22 01/03/23 07:22 01/03/23 07:22 01/02/23 00:00 Laboratory Results - last 24 hr 01/02/23 11:40: POC Glucose 159 H 01/02/23 16:46: POC Glucose 236 H 01/02/23 20:55: POC Glucose 319 H* 01/03/23 05:09: POC Glucose 165 H 01/03/23 07:05: WBC 13.2 H, RBC 4.20, Hgb 13.6, Hct 42.6, MCV 101.3 H, MCH 32.3 H, MCHC 31.9, RDW 15.0, Plt Count 278, MPV 9.9, Neut % (Auto) 81.5 H, Lymph % (Auto) 11.5, [place] % (Auto) 5.9, Eos % (Auto) 0.3, Baso % (Auto) 0.7, Neut # (Auto) 10.7 H, Lymph # (Auto) 1.5, [place] # (Auto) 0.8, Eos # (Auto) 0.0, Baso # (Auto) 0.1 01/03/23 07:05: Sodium 140, Potassium 3.6, Chloride 93 L, Carbon Dioxide 40 H, Anion Gap 10.6, BUN 46 H, Creatinine 1.10 H, Estimated Creat Clear 59, Estimated GFR 50 L, Est GFR ( Amer) 60, Glucose 151 H, Calcium 8.6, Total Bilirubin 0.5, AST 22, ALT 27, Alkaline Phosphatase 73, Total Protein 5.9 L, Albumin 3.5, Globulin 2.4, Albumin/Globulin Ratio 1.5 I & O for Last 24 hours: Intake & Output 12/31/22 01/01/23 01/02/23 01/03/23 23:59 23:59 23:59 23:59 Intake Total 720 / 720 1000 / 1000 840 / 840 Output Total 2390 / 2590 2750 / 2750 750 / 850 100 / 100 Balance -1670 / -1870 -1750 / -1750 90 / -10 -100 / -100 Weight 182 lb 6.991 oz 173 lb 1.006 oz 168 lb 13.985 oz 165 lb 2 oz Microbiology Reports for the Last 24 Hours: Microbiology 01/01/23 10:23 Sputum - Expectorated Sputum Gram Stain - Final 01/01/23 10:23 Sputum - Expectorated Sputum Sputum Culture - Preliminary Gram Negative Rods Gram Negative Rods#2 Constitutional Constitutional: no acute distress *Routine Respiratory Exam Respiratory: Present wheezes and symmetric chest movement *Routine Cardiovascular Exam Cardiovascular: Present RRR, Normal S1 and Normal S2 *Routine Abdominal Exam Abdominal: Present soft and normoactive bowel sounds; Absent tenderness *Routine Extremities Exam Extremities: Present full ROM and normal capillary refill; Absent edema *Routine Skin Exam Skin: Present intact, dry and warm Detailed Neck Exam: Thyroids Thyroid: Absent bruit Progress Note: A&P Assessment and plan (1) Acute exacerbation of chronic obstructive pulmonary disease: Status: Acute (2) Pneumonia due to COVID-19 virus: Status: Acute (3) Acute respiratory failure with hypoxia: Status: Acute (4) Heart failure with preserved ejection fraction: Status: Acute Assessment and Plan Assessment and Plan for All Diagnoses:: Acute hypoxic respiratory failure -Multifactorial in nature: COVID-19 positive, bilateral pulmonary infiltrates, COPD exacerbation, volume overload -Pulmonary is following -Chest x-ray 01/01/2022 shows partially improved pulmonary opacities may represent improving pneumonia or edema 01/02/2023: Respiratory status greatly improved, patient maintaining oxygen saturation greater than 92% on 2 L nasal cannula 01/03/2023: Respiratory status continues to improve, patient continues to maintain oxygen saturation greater than 90% on 2 L nasal cannula. HFPEF/Diastolic Dysfunction Grade II/Pulmonary HTN -Echo from 2019: EF 55% with no regional wall motion abnormality noted, grade 1 diastolic dysfunction, thickened and calcified aortic valve without evidence of aortic stenosis, mild mitral and tricuspid regurg -Preliminary echo 01/01/2023 shows a reduced ejection fraction of 45 to 50%, mild to moderate mitral regurg, mild tricuspid regurg and RV systolic pressure of 40-45.? Official read is pending -Patient does have signs of volume overload
--- NOTE | 2023-01-03 08:51 | XR_ITS ---
FINAL REPORT CLINICAL HISTORY: PNM COMPARISON: 01/01/2023 FINDINGS: A single portable view of the chest was obtained. The heart size and pulmonary vascularity are within normal limits. The mediastinum is within normal limits. There is mild left upper lobe scarring which is stable. The bony thorax is intact. IMPRESSION: Mild upper lobe scarring, stable. No new abnormality identified. Reviewed, Interpreted and Dictated by Thanh Jones III, MD Transcribed by Nirmala Harrison Authenticated and . [facility]
--- NOTE | 2023-01-03 09:36 | EXP.PULM.PN ---
Subjective *Date: 01/03/23 *Time: 09:36 Interval history: No acute events overnight. Patient admits continued improvement in her respiratory symptoms. Room air saturations less than 89%. Pulmonology Exam Inpatient Vital signs and Labs for Last 24 Hours: Temp Pulse Resp BP Pulse Ox FiO2 98.1 F 91 H 22 122/61 87 L 2 01/03/23 07:22 01/03/23 07:22 01/03/23 07:22 01/03/23 07:22 01/03/23 07:22 01/02/23 00:00 Laboratory Results - last 24 hr 01/02/23 11:40: POC Glucose 159 H 01/02/23 16:46: POC Glucose 236 H 01/02/23 20:55: POC Glucose 319 H* 01/03/23 05:09: POC Glucose 165 H 01/03/23 07:05: WBC 13.2 H, RBC 4.20, Hgb 13.6, Hct 42.6, MCV 101.3 H, MCH 32.3 H, MCHC 31.9, RDW 15.0, Plt Count 278, MPV 9.9, Neut % (Auto) 81.5 H, Lymph % (Auto) 11.5, [place] % (Auto) 5.9, Eos % (Auto) 0.3, Baso % (Auto) 0.7, Neut # (Auto) 10.7 H, Lymph # (Auto) 1.5, [place] # (Auto) 0.8, Eos # (Auto) 0.0, Baso # (Auto) 0.1 01/03/23 07:05: Sodium 140, Potassium 3.6, Chloride 93 L, Carbon Dioxide 40 H, Anion Gap 10.6, BUN 46 H, Creatinine 1.10 H, Estimated Creat Clear 59, Estimated GFR 50 L, Est GFR ( Amer) 60, Glucose 151 H, Calcium 8.6, Total Bilirubin 0.5, AST 22, ALT 27, Alkaline Phosphatase 73, Total Protein 5.9 L, Albumin 3.5, Globulin 2.4, Albumin/Globulin Ratio 1.5 I & O for Labs for Last 24 Hours: Intake & Output 12/31/22 01/01/23 01/02/23 01/03/23 23:59 23:59 23:59 23:59 Intake Total 720 / 720 1000 / 1000 840 / 840 Output Total 2390 / 2590 2750 / 2750 750 / 850 100 / 100 Balance -1670 / -1870 -1750 / -1750 90 / -10 -100 / -100 Weight 182 lb 6.991 oz 173 lb 1.006 oz 168 lb 13.985 oz 165 lb 2 oz Microbiology Reports for the Last 24 Hours: Microbiology 01/01/23 10:23 Sputum - Expectorated Sputum Gram Stain - Final 01/01/23 10:23 Sputum - Expectorated Sputum Sputum Culture - Preliminary Gram Negative Rods Gram Negative Rods#2 Constitutional: Present mild distress Head: Present normocephalic and atraumatic ENT: Present normal exam, normal oropharynx and mucous membranes moist Neck: Present normal inspection and full ROM Respiratory: Present respiratory distress, rhonchi, stridor, wheezes, crackles, diminished air movement and able to speak in complete sentences; Absent accessory muscle use Cardiac: Present S1/S2, Tachycardia and radial pulses present GI: Present soft and distention; Absent tenderness or guarding Rectal (female): Present deferred (female): Present deferred Skin: Present intact; Absent cyanosis or jaundice Neuro: Present alert, awake and oriented x 3 Extremities: Present normal inspection; Absent clubbing or cyanosis Psychiatric: Present normal affect and cooperative Assessment and Plan *Assessment and plan (1) Acute exacerbation of chronic obstructive pulmonary disease: Status: Acute Category: Medical Code(s): J44.1 - Chronic obstructive pulmonary disease with (acute) exacerbation (2) Pneumonia due to COVID-19 virus: Status: Acute Category: Medical Code(s): U07.1 - COVID-19; J12.82 - Pneumonia due to coronavirus disease 2019 (3) Acute respiratory failure with hypoxia: Status: Acute Category: Medical Code(s): J96.01 - Acute respiratory failure with hypoxia Plan Current smoker greater than [id number] smoking history, chronic hypoxic respiratory failure on 2 L home oxygen. History of non-small cell lung cancer left upper lobe status post radiation in [address]/PET scans, most recent PET scan from September 2022 concerning right upper lobe pulmonary nodule 0.8 cm in size FGD avid opted for a 3-month follow-up. History of CAD status post stent in LAD. Diastolic dysfunction. Most recent echo 2018 concentric LV hypertrophy with EF of 50%. Mild MR and TR. Biatrial enlargement. Admitted to the hospital on 12/27/2022 for worsening respiratory distress and pneumonia, ini
--- NOTE | 2023-01-03 09:45 | EXP.DC.SUM ---
General Admission date:: 12/30/22 Discharge date: 01/03/23 HPI HPI HPI: 67-year-old white female recently discharged, yesterday, from [facility] after a 2-day stay for COPD exacerbation with a diagnosis of COVID-19 infection. She was discharged with antibiotics, nebulizer treatments and antiviral medication. She was tenuous to go home but was fairly insistent on being discharged and was discharged in the care of her family. She came back to the ER this morning stating that in spite of her oxygen at 4 L, nebulized treatments and other medication she was increasingly short of breath and very worried. Admitted to hospital for worsening oxygen requirement, further diagnostic testing and inpatient treatment for COVID-19 pneumonia Hospital Course Hospital Course Hospital Course: Patient was admitted, given her increased oxygen requirement was placed on IV remdesivir and dexamethasone. Pulmonary consulted, appreciate recommendations. Cardiology was consulted given possible volume overload. Echocardiogram was done which revealed preserved ejection fraction, diastolic dysfunction with some akinetic wall movement noted. Diuretics were changed to Bumex and she tolerated this very nicely, she diuresed well and this certainly helped her shortness of air. Consideration was given to right and left heart cath, which was recommended by cardiology but patient's family and patient preferred to wait until next week when they could see cardiology as an outpatient. We discussed the risk and benefits of this. She felt much better over a couple of days in the hospital, she was able to be weaned off of her high flow Vapotherm and was able to go back to 2 L nasal cannula which she is on at home. Continued antibiotics. Gram-negative rods showed up in her Gram stain from her sputum, sensitivities are pending. These will be monitored as an outpatient. She reached baseline functional status here and wished to be discharged home. Plan will be to go home with Bumex. Cefdinir for gram-negative sasha coverage with potential change if needed, cardiology follow-up and follow-up in my office next week. She will continue her home O2 and finish up her antiviral COVID medication. Exam Data for Last 24 hours Vital signs and Labs for Last 24 Hours: Temp Pulse Resp BP Pulse Ox FiO2 98.1 F 91 H 22 122/61 87 L 2 01/03/23 07:22 01/03/23 07:22 01/03/23 07:22 01/03/23 07:22 01/03/23 07:22 01/02/23 00:00 Laboratory Results - last 24 hr 01/02/23 11:40: POC Glucose 159 H 01/02/23 16:46: POC Glucose 236 H 01/02/23 20:55: POC Glucose 319 H* 01/03/23 05:09: POC Glucose 165 H 01/03/23 07:05: WBC 13.2 H, RBC 4.20, Hgb 13.6, Hct 42.6, MCV 101.3 H, MCH 32.3 H, MCHC 31.9, RDW 15.0, Plt Count 278, MPV 9.9, Neut % (Auto) 81.5 H, Lymph % (Auto) 11.5, [place] % (Auto) 5.9, Eos % (Auto) 0.3, Baso % (Auto) 0.7, Neut # (Auto) 10.7 H, Lymph # (Auto) 1.5, [place] # (Auto) 0.8, Eos # (Auto) 0.0, Baso # (Auto) 0.1 01/03/23 07:05: Sodium 140, Potassium 3.6, Chloride 93 L, Carbon Dioxide 40 H, Anion Gap 10.6, BUN 46 H, Creatinine 1.10 H, Estimated Creat Clear 59, Estimated GFR 50 L, Est GFR ( Amer) 60, Glucose 151 H, Calcium 8.6, Total Bilirubin 0.5, AST 22, ALT 27, Alkaline Phosphatase 73, Total Protein 5.9 L, Albumin 3.5, Globulin 2.4, Albumin/Globulin Ratio 1.5 I & O for Last 24 hours: Intake & Output 12/31/22 01/01/23 01/02/23 01/03/23 11:59 11:59 11:59 11:59 Intake Total 300 / 300 840 / 840 880 / 880 600 / 600 Output Total 1690 / 1940 1800 / 1800 2600 / 2600 100 / 100 Balance -1390 / -1640 -960 / -960 -1720 / -1720 500 / 500 Weight 182 lb 6.991 oz 173 lb 3.2 oz 168 lb 13.985 oz 165 lb 2 oz Microbiology Reports for the Last 24 Hours: Microbiology 01/01/23 10:23 Sputum - Expectorated Sputum Gram Stain - Final 01/01/23 10:23 Sputum - Expectorated Sputum Sputum Culture - Preliminary Gram Negative Rods
--- NOTE | 2023-01-03 10:01 | EXP.PHA.PN ---
Subjective *Date: 01/03/23 *Time: 10:02 Medical Exam Vital signs and Labs for Last 24 Hours: Vital Signs Temp Pulse Pulse Resp BP Pulse Ox 01/03/23 07:22 98.1 F 91 H 22 122/61 87 L 01/03/23 06:17 85 01/03/23 06:17 87 01/03/23 06:17 90 L 01/03/23 04:00 97.9 F 100 H 20 131/78 93 L 01/03/23 00:00 98.1 F 86 18 98/44 L 92 L 01/02/23 23:09 103 H 01/02/23 23:09 104 H 01/02/23 20:00 97 01/02/23 20:00 98.0 F 101 H 26 H 130/75 92 L 01/02/23 18:12 112 H 01/02/23 18:12 112 H 01/02/23 18:12 91 L 01/02/23 15:15 98.2 F 85 18 111/63 94 L 01/02/23 13:08 80 01/02/23 13:08 77 Intake and Output 01/02/23 01/03/23 01/03/23 23:59 07:59 15:59 Intake Total 240 / 840 Output Total 0 / 850 100 / 100 Balance 240 / -10 -100 / -100 Intake: Intake, Oral Amount 240 / 840 Output: Output, Urine Amount 0 / 850 100 / 100 Other: Number of Unmeasured Voids 1 1 Weight 74.899 kg Patient Weight 01/03/23 23:59 Weight 74.899 kg Laboratory Results - last 24 hr 01/02/23 11:40: POC Glucose 159 H 01/02/23 16:46: POC Glucose 236 H 01/02/23 20:55: POC Glucose 319 H* 01/03/23 05:09: POC Glucose 165 H 01/03/23 07:05: WBC 13.2 H, RBC 4.20, Hgb 13.6, Hct 42.6, MCV 101.3 H, MCH 32.3 H, MCHC 31.9, RDW 15.0, Plt Count 278, MPV 9.9, Neut % (Auto) 81.5 H, Lymph % (Auto) 11.5, [place] % (Auto) 5.9, Eos % (Auto) 0.3, Baso % (Auto) 0.7, Neut # (Auto) 10.7 H, Lymph # (Auto) 1.5, [place] # (Auto) 0.8, Eos # (Auto) 0.0, Baso # (Auto) 0.1 01/03/23 07:05: Sodium 140, Potassium 3.6, Chloride 93 L, Carbon Dioxide 40 H, Anion Gap 10.6, BUN 46 H, Creatinine 1.10 H, Estimated Creat Clear 59, Estimated GFR 50 L, Est GFR ( Amer) 60, Glucose 151 H, Calcium 8.6, Total Bilirubin 0.5, AST 22, ALT 27, Alkaline Phosphatase 73, Total Protein 5.9 L, Albumin 3.5, Globulin 2.4, Albumin/Globulin Ratio 1.5 I & O for Labs for Last 24 Hours: Intake & Output 12/31/22 01/01/23 01/02/23 01/03/23 23:59 23:59 23:59 23:59 Intake Total 720 / 720 1000 / 1000 840 / 840 Output Total 2390 / 2590 2750 / 2750 750 / 850 100 / 100 Balance -1670 / -1870 -1750 / -1750 90 / -10 -100 / -100 Weight 82.752 kg 78.5 kg 76.6 kg 74.899 kg Microbiology Reports for the Last 24 Hours: Microbiology 01/01/23 10:23 Sputum - Expectorated Sputum Gram Stain - Final 01/01/23 10:23 Sputum - Expectorated Sputum Sputum Culture - Preliminary Gram Negative Rods Gram Negative Rods#2 The patient's infection will respond to the chosen ABx?: Yes Is the patient receiving the right drug, dose, and route?: Yes Could a more targeted ABx be ordered?: No (WBC 13.2, GRAM - RODS IN SPUTUM)
--- NOTE | 2023-01-04 14:02 | CARE MANAGER ---
Called and spoke with patient regarding recent discharge. She stated that she is doing well, no complaints or concerns voiced at time of call.
== END 2023-01-03 11:45 | disposition home health service (06) | DRG 177 ==
LOC: ER 09:18 → 2ND 19:16
PROVIDERS: Admitting Provider Internal Medicine Adolescent Medicine; Emergency Provider Emergency Medicine; PCP Internal Medicine Adolescent Medicine; Visit Provider Internal Medicine Adolescent Medicine
DX: I21.4 Non-ST elevation (NSTEMI) myocardial infarction (principal); U07.1 COVID-19; I50.21 Acute systolic (congestive) heart failure; J96.01 Acute respiratory failure with hypoxia; J12.82 Pneumonia due to coronavirus disease 2019; I73.9 Peripheral vascular disease, unspecified; I25.10 Atherosclerotic heart disease of native coronary artery without angina pectoris; Z95.5 Presence of coronary angioplasty implant and graft; F17.210 Nicotine dependence, cigarettes, uncomplicated; J43.9 Emphysema, unspecified; Z85.118 Personal history of other malignant neoplasm of bronchus and lung; I11.0 Hypertensive heart disease with heart failure; I27.20 Pulmonary hypertension, unspecified; Z99.81 Dependence on supplemental oxygen; Z79.84 Long term (current) use of oral hypoglycemic drugs
CPT/HCPCS: 36415; 71045; 71046; 80048; 80053; 82803; 82962; 83605; 83880; 84145; 84484; 85007; 85025; 87040; 87070; 87077; 87186; 87205; 87581; 87632; 87798; 93005; 93306; 94640; 94760; 94761; 97116; 97162; 97166; 97530; 99285; 99291; C9803; G0378; J0456; J0696; J2405; J3475; U0003; U0005

== ENCOUNTER → 2023-01-17 13:57 | Outpatient (CLI) | payer MEDICARE, SELFPAY ==
[2023-01-17 15:31] LABS: Basophils % 0.3 % (0.1-2.0); Eosinophils # 0.3 K/mm3 (0.0-0.4); Eosinophils % 3.5 % (0.1-12.0); Hematocrit 37.8 % (37.0-47.0); Lymphocytes # 1.6 K/mm3 (0.7-4.5); Lymphocytes % 20.5 % (10-50); Mean Corpuscular HGB Conc 31.7 g/dL (31.8-35.4); Mean Corpuscular Hemoglobin 32.6 pg (27.0-31.2); Mean Corpuscular Volume 102.9 fl (81-99); Mean Platelet Volume 8.4 fl (7.4-10.4); Monocytes # 0.6 K/mm3 (0.1-1.0); Monocytes % 7.2 % (1.7-9.3); Neutrophils # 5.4 K/mm3 (1.8-7.8); Neutrophils % 68.5 % (37.0-80.0); Platelet Count 233 K/mm3 (142-424); Red Blood Count 3.67 M/mm3 (4.20-5.40); Red Cell Distribution Width 14.8 % (11.5-17.5); White Blood Count 7.9 K/mm3 (4.8-10.8)
[2023-01-17 15:52] LABS: Chloride 92 mmol/L (98-107)
[2023-01-17 15:53] LABS: Potassium 4.9 mmoL/L (3.5-5.1); Sodium 136 mmol/L (136-145)
[2023-01-17 15:55] LABS: Alanine Aminotransferase 30 U/L (12-78); Albumin Level 3.3 g/dl (3.5-5.0); Alkaline Phosphatase 95 U/L (38-126); Anion Gap 19.9 mEq/L (5-15); Aspartate Amino Transferase 29 U/L (14-36); Bilirubin,Direct 0.2 mg/dl (0.0-0.4); Bilirubin,Indirect 0.2 mg/dL (0.0-0.9); Bilirubin,Total 0.4 mg/dl (0.2-1.3); Bilirubin,Unconjugated 0.2 mg/dL (0.0-1.1); Blood Urea Nitrogen 16 mg/dl (7-17); Carbon Dioxide 29 mmol/L (22.0-30.0); Cholesterol 98 mg/dl (140-200); Estimated Glomerular Filt Rate 55 ml/min (>60); GFR (African American) 67 ML/MIN (>60); Glucose 96 mg/dl (74-100); Total Protein,Serum 5.6 g/dl (6.3-8.2); Triglycerides 141 mg/dl (30-150); VLDL Cholesterol 28 mg/dL (0-40)
[2023-01-17 15:56] LABS: Calcium 8.9 mg/dl (8.4-10.2); Chol/HDL Ratio 3.3 (1-3.5); HDL Cholesterol 30 mg/dl (40-60); Magnesium 1.2 mg/dl (1.6-2.3)
[2023-01-17 16:07] LABS: Direct LDL Cholesterol 55.97 mg/dL (100-129)
[2023-01-17 16:26] LABS: Thyroid Stimulating Hormone 0.42 uIU/mL (0.465-4.68)
[2023-01-18 10:34] LABS: Vitamin B12 993 pg/mL (239-931)
[2023-01-18 10:54] LABS: Folate 5.89 ng/mL
== END ==
PROVIDERS: PCP Internal Medicine Adolescent Medicine; Visit Provider Physician Assistant
DX: E78.2 Mixed hyperlipidemia (principal); I10 Essential (primary) hypertension; I25.10 Atherosclerotic heart disease of native coronary artery without angina pectoris; I73.9 Peripheral vascular disease, unspecified; R06.09 Other forms of dyspnea; Z72.0 Tobacco use; D75.89 Other specified diseases of blood and blood-forming organs
CPT/HCPCS: 36415; 80048; 80061; 80076; 82607; 82746; 83735; 84439; 84443; 85025

== ENCOUNTER 2023-01-29 15:24 | Inpatient (IN) | payer MEDICARE, SELFPAY ==
[2023-01-29 15:24] VITALS: BP 117/73; PULSE 80; PULSE 88; RESP 18; RESP 32; TEMP 36.9; O2SAT 93; BMI 28.9
--- NOTE | 2023-01-29 15:31 | HMH.EDGENADL ---
Discharge Plan Disposition Patient Disposition: Admitted As Inpatient Prescriptions Prescriptions: No Action melatonin 1 mg tablet 2 mg PO HSP PRN (Reason: Sleep) ipratropium-albuterol 0.5 mg-3 mg(2.5 mg base)/3 mL solution for nebulization 3 ml IH QIDP PRN (Reason: Shortness Of Breath) metformin 1,000 mg tablet 1,000 mg PO BIDWMEAL 90 Days Qty: 180 Label Comments: clopidogrel 75 mg tablet 75 mg PO DAILY 90 Days Qty: 90 Label Comments: cetirizine 10 mg tablet 10 mg PO DAILY 30 Days Qty: 30 Label Comments: TAKE 1 TABLET ONCE A DAY FOR VERTIGO gabapentin 300 mg capsule 600 mg PO BID 90 Days Qty: 360 Label Comments: meloxicam 15 mg tablet 15 mg PO DAILY 90 Days Qty: 90 Label Comments: atorvastatin 20 mg tablet 20 mg PO HS 90 Days Qty: 90 Label Comments: Trelegy Ellipta 100-62.5-25 mcg blister with device 1 inh inhalation DAILY spironolactone 50 mg tablet 50 mg PO BID Qty: 60 5RF magnesium oxide 400 mg (241.3 mg magnesium) tablet 400 mg PO DAILY Qty: 30 5RF atenolol 25 MG tablet 25 mg PO DAILY escitalopram oxalate 5 MG tablet 5 mg PO DAILY allopurinol 100 mg tablet 200 mg PO DAILY cefdinir 300 mg Capsule 300 mg PO BID Rx Instructions: STARTED 12/29/22, FOR 7 DAYS. Lagevrio (EUA) 200 mg Capsule 800 mg PO Q12H Rx Instructions: FOR 5 DAYS, STARTED 12/29/22. bumetanide 1 mg Tablet 1 mg PO BIDL Qty: 60 0RF levofloxacin 750 mg tablet 750 mg PO DAILY Qty: 5 0RF aspirin 81 MG tablet,delayed release (DR/EC) 81 mg PO DAILY Referrals Follow up/Referrals: Anselmo Montana MD [Primary Care Provider] - See instructions Clinical Impressions Clinical Impression: Closed left hip fracture Discharge ED Provider: Garland Simental General Adult HPI General Chief complaint: Fall Stated complaint: FALL Time Seen by Provider: 01/29/23 15:31 History of Present Illness HPI narrative: Patient is a 67-year-old female presenting with left hip pain after a fall. She states she had a mechanical fall no syncopal episode she has significant pain with the left hip she has been unable to bear weight or have any range of motion and she has been unable to ambulate since this episode. She denies any injuries elsewhere. She has a history of multiple chronic comorbidities was recently in the hospital for COVID-pneumonia and discharged a few days ago per her family member. She denies any decrease in sensation or motor or coolness in the left lower extremity distal to the injury. She denies any femur or knee or other pain associate with this fall. Related Data Home Medications Medication Instructions Recorded Confirmed atorvastatin 20 mg tablet 20 mg PO HS Cholesterol 90 days 10/26/17 01/17/23 ##90 cetirizine 10 mg tablet 10 mg PO DAILY Allergy symptoms 30 10/26/17 01/17/23 days ##30 clopidogrel 75 mg tablet 75 mg PO DAILY Blood thinner 10/26/17 01/17/23 days ##90 gabapentin 300 mg capsule 600 mg PO BID NERVE PAIN 90 days 10/26/17 01/17/23 ##360 meloxicam 15 mg tablet 15 mg PO DAILY Arthritis 90 days 10/26/17 01/17/23 ##90 metformin 1,000 mg tablet 1,000 mg PO BIDWMEAL Diabetes 90 10/26/17 01/17/23 days ##180 melatonin 1 mg tablet 2 mg PO HSP PRN Sleep 04/24/18 01/17/23 aspirin 81 mg tablet,delayed 81 mg PO DAILY Heart disease 05/06/18 01/17/23 release atenolol 25 mg tablet 25 mg PO DAILY HEART RATE 06/03/20 01/17/23 escitalopram oxalate 5 mg tablet 5 mg PO DAILY Anxiety 06/03/20 01/17/23 ipratropium 0.5 mg-albuterol 3 mg 3 ml inhalation QIDP PRN Shortness 05/03/22 01/17/23 (2.5 mg base)/3 mL nebulization Of Breath soln allopurinol 100 mg tablet 200 mg PO DAILY gout 12/27/22 01/17/23 cefdinir 300 mg capsule 300 mg PO BID Infection 12/30/22 01/17/23 molnupiravir 200 mg capsule (EUA) 800 mg PO Q12H Infection 12/30/22 01/17/23 (Lagevrio)
--- NOTE | 2023-01-29 15:32 | PC.NURSE ---
L pedal pulse doppler-swelling noted to L foot, pt reports swelling r/t hx of gout R pedal pulse 2+
--- NOTE | 2023-01-29 15:33 | PC.NURSE ---
ZHENG ELDER at
--- NOTE | 2023-01-29 15:36 | XR_ITS ---
FINAL REPORT CLINICAL HISTORY: fall left hip pain FINDINGS: 2 views of the left hip were obtained. There is a nondisplaced inter trochanteric fracture of the proximal left femur. There are moderate degenerative changes of the left hip and lower lumbar spine. There are no soft tissue abnormalities. IMPRESSION: Nondisplaced inter trochanteric fracture of the proximal left femur. Reviewed, Interpreted and Dictated by Thanh Jones III, MD Transcribed by Dejan Bob Authenticated and [facility]
--- NOTE | 2023-01-29 15:38 | PC.NURSE ---
rad notified of xray orders
[2023-01-29 15:46] LABS: Basophils % 0.4 % (0.1-2.0); Eosinophils # 0.2 K/mm3 (0.0-0.4); Eosinophils % 2.6 % (0.1-12.0); Hematocrit 37.5 % (37.0-47.0); Hemoglobin 12.2 g/dL (12.2-16.2); Lymphocytes # 2.1 K/mm3 (0.7-4.5); Lymphocytes % 27.7 % (10-50); Mean Corpuscular HGB Conc 32.5 g/dL (31.8-35.4); Mean Corpuscular Volume 101.5 fl (81-99); Mean Platelet Volume 8.1 fl (7.4-10.4); Monocytes # 0.6 K/mm3 (0.1-1.0); Monocytes % 7.9 % (1.7-9.3); Neutrophils # 4.7 K/mm3 (1.8-7.8); Neutrophils % 61.5 % (37.0-80.0); Platelet Count 308 K/mm3 (142-424); Red Cell Distribution Width 15.1 % (11.5-17.5); White Blood Count 7.7 K/mm3 (4.8-10.8)
--- NOTE | 2023-01-29 15:56 | PC.NURSE ---
ZHENG ELDER speaking with dr. nagy
[2023-01-29 15:57] LABS: Alanine Aminotransferase 29 U/L (12-78); Albumin Level 3.6 g/dl (3.5-5.0); Albumin/Globulin Ratio 1.6 (1.1-1.8); Alkaline Phosphatase 94 U/L (38-126); Anion Gap 20.2 mEq/L (5-15); Aspartate Amino Transferase 34 U/L (14-36); Bilirubin,Total 0.2 mg/dl (0.2-1.3); Blood Urea Nitrogen 17 mg/dl (7-17); Calcium 8.9 mg/dl (8.4-10.2); Carbon Dioxide 27 mmol/L (22.0-30.0); Chloride 94 mmol/L (98-107); Creatinine Clearance Estimated 56 mL/min (50-200); Estimated Glomerular Filt Rate 50 ml/min (>60); GFR (African American) 60 ML/MIN (>60); Globulin 2.3 g/dL (1.3-3.2); Glucose 111 mg/dl (74-100); Potassium 4.2 mmoL/L (3.5-5.1); Sodium 137 mmol/L (136-145); Total Protein,Serum 5.9 g/dl (6.3-8.2)
--- NOTE | 2023-01-29 16:00 | PC.NURSE ---
ZHENG ELDER speaking Dr. Montana
--- NOTE | 2023-01-29 16:02 | PC.NURSE ---
notified care management of admission.
--- NOTE | 2023-01-29 16:06 | ECG_ITS ---
APPROVED REPORT Exam: Resting ECG HR:78 bpm ECG Measurements Heart Rate 78 AXES CA 175 P 76 QRSd 86 QRS 34 QT 392 T 76 QTc 425 Conclusion SINUS RHYTHM POSSIBLE LEFT ATRIAL ENLARGEMENT [-0.1mV P-WAVE IN V1/V2] BORDERLINE ECG UNCONFIRMED REPORT Electronically signed by : Anselmo Montana MD 01/29/2023 21:13:03
[2023-01-29 16:15] LABS: Activated Partial Thrombo Time 21.6 seconds (22.8-30.6); INR 0.96 (0.9-1.1); Prothrombin Time 10.4 seconds (10.1-12.5)
[2023-01-29 16:35] LABS: Coronavirus 19, PCR Not Detected (NotDetected); Influenza A, PCR Not Detected (NotDetected); Influenza B, PCR Not Detected (NotDetected)
--- NOTE | 2023-01-29 16:46 | PC.NURSE ---
PT BEING TRANSORTED UP FOR ADMISSION
--- NOTE | 2023-01-29 16:47 | PC.NURSE ---
arrived by stretcher to floor from ED
[2023-01-29 16:49] VITALS: BP 129/60; PULSE 80; RESP 20; TEMP 36.9; O2SAT 94
[2023-01-29 17:06] VITALS: BP 116/55; PULSE 79; RESP 18; TEMP 36.8; O2SAT 91; BMI 30.2
--- NOTE | 2023-01-29 17:20 | EXP.HP ---
History of Present Illness *Admission Date: 01/29/23 *Reason for visit:: Fall at home *History of present illness: 67-year-old white female with recent admission for COVID-19 pneumonia, heart failure exacerbation, recently graduated from home health and home O2 therapy as she is improved from her COVID-19 pneumonia. Also underwent cardiac catheterization with stent placement in April 2022 Was at her daughter's home today and was going up a step and tripped on her flip-flop and fell down. Could not bear weight. Came to the ER. Diagnosed with left hip fracture. Admitted for orthopedic consultation and pain relief. [facility] Disclaimer: The information contained in this section may have been updated after the patient was seen, as this information can be updated by other users. Medical History Acute respiratory failure with hypoxia CAD (coronary artery disease) APR 2022-Severe ostial mid left main disease as described Successful stenting of the ostial proximal mid distal left main artery reducing the stenosis to less than 10% giving excellent angiograph results Preserved ejection fraction Normal left ventricular end-diastolic pressure Persistent stenosis in a large posterior lateral branch which is best managed medically COPD (chronic obstructive pulmonary disease) Diabetes mellitus Diastolic dysfunction ACUÑA (dyspnea on exertion) History of placement of stent in LAD coronary artery HLD (hyperlipidemia) HTN (hypertension) PAD (peripheral artery disease) Pneumonia due to COVID-19 virus Subclavian artery stenosis, left Tobacco use Surgical History Hx of right coronary artery stent placement Family History Other No significant family history Social History (Updated 01/29/23 @ 17:14 by Nasra Hall RN) Smoking Status: Current every day smoker tobacco type: cigarettes packs per day: 1 second hand exposure: No alcohol intake: never substance use type: denies use current occupational status: retired Travel in the last 8 weeks: None household members: none housing: house current occupational exposures/hazards: No caffeine: Yes Review of Systems Review of Systems Review of systems:: pertinent systems reviewed and negative unless documented below Review of systems (narrative): Patient been feeling fairly well since has been home until the fall. She denies chest pain, palpitations or dyspnea before the fall. Maintains it was a purely mechanical issue with her shoe. Meds Home Medications and Allergies Home Medications Medication Instructions Recorded Confirmed Type atorvastatin 20 mg tablet 20 mg PO HS Cholesterol 90 days 10/26/17 01/29/23 History ##90 cetirizine 10 mg tablet 10 mg PO DAILY Allergy symptoms 30 10/26/17 01/29/23 History days ##30 clopidogrel 75 mg tablet 75 mg PO DAILY Blood thinner 90 10/26/17 01/29/23 History days ##90 gabapentin 300 mg capsule 600 mg PO BID NERVE PAIN 90 days 10/26/17 01/29/23 History ##360 meloxicam 15 mg tablet 15 mg PO DAILY Arthritis 90 days 10/26/17 01/29/23 History ##90 metformin 1,000 mg tablet 1,000 mg PO BIDWMEAL Diabetes 90 10/26/17 01/29/23 History days ##180 aspirin 81 mg tablet,delayed 81 mg PO DAILY Heart disease 05/06/18 01/29/23 History release atenolol 25 mg tablet 25 mg PO DAILY HEART RATE 06/03/20 01/29/23 History escitalopram oxalate 5 mg tablet 5 mg PO DAILY Anxiety 06/03/20 01/29/23 History ipratropium 0.5 mg-albuterol 3 mg 3 ml inhalation QIDP PRN Shortness 05/03/22 01/29/23 History (2.5 mg base)/3 mL nebulization Of Breath soln spironolactone 50 mg tablet 50 mg PO BID Fluid #60 tabs 09/21/22 01/29/23 Rx allopurinol 100 mg tablet 200 mg PO DAILY gout 12/27/22 01/29/23 History bumetanide 1 mg tablet 1 mg PO BIDL #60 tabs 01/03/23 01/29/23 Rx fluticasone fur. 100 mcg-umeclid 1 inh inhalation DAILY [employer]IST
--- NOTE | 2023-01-29 17:25 | PC.NURSE ---
Dr. 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 Dr Doyle returned call and verbal order given for 21 mg Nicotine patch. Order sent to [facility].
--- NOTE | 2023-01-29 17:32 | PC.NURSE ---
pt new admit this shift. pt arrives from ER. pt alert and oriented. pt presents with a left sided hip fx after sustaining a mechanical fall. ls diminished t/o, pt given an incentive spirometer upon arrival to floor. abdomen soft, nontender, bs active. pt does have shortening to left hip. family at bedside. pt to have a cardiology consult tomorrow.
[2023-01-29 20:00] VITALS: BP 105/57; PULSE 87; RESP 18; TEMP 36.8; O2SAT 89; O2SAT 90; O2SAT 95
[2023-01-30] VITALS (7 sets, daily range): BP systolic 111–134; BP diastolic 55–65; PULSE 70–97; RESP 17–22; TEMP 36.8–37.1; O2SAT 88–95; BMI 30.2
--- NOTE | 2023-01-30 04:06 | PC.NURSE ---
No changes during the night. pt. has called out for pain meds every 3-4 hours. She has gotten 3 doses of morpine so far on my shift.
--- NOTE | 2023-01-30 06:12 | PC.NURSE ---
Pt hadn't urinated all night, Bladder scanned with 547 in, did an I&0 CATH with 650 out.
--- NOTE | 2023-01-30 07:24 | EXP.CARD.CON ---
History of Present Illness History of Present Illness Consult date: 01/30/23 Requesting physician: Anselmo Montana Consult reason: pre-op evaluation Chief complaint: Fall with left hip pain/fracture Additional Medical History:: 1. Coronary artery disease with remote NE, 2008, [facility] with no need for intervention A. NSTEMI, subsequent [facility], [place] to ostial LAD, 02/2017 B. [facility], 05/06/2018, 2 [place] to proximal dominant RCA. Distal RCA disease and first diagonal disease to be treated medically. Normal EF, normal LVEDP C. R/[facility], 10/27/2019, medical management for CAD with Patent LAD and RCA stents. Moderate pulmonary hypertension (PAOP is 25 mmHg) and moderate DD (LVEDP 22 mmHg). D. [facility], 05/04/2022, [place] to ostial proximal mid distal left main, EF 50%, LVEDP 10 mmHg. Persistent stenosis of large posterolateral branch, best managed medically E. Type 2 NSTEMI secondary to COVID related demand ischemia, 12/2022. No cath performed. 2. Hypertension A. Echo, 04/2018, mild LAE, normal LV size,mild concentric LVH, EF 50%, no regional WMA. Mild DEUCE and RVE with normal contractility. Minimally thickened valves without significant regurgitation. Grade 1 DD. B. Echo, 01/02/2023, normal LV size with EF 50-55%. Grade 2 DD. RVSP estimated at 42 mmHg. Mild AR/MR with trace TR/MI 3. COPD with continued tobacco use A. Home oxygen use B. COVID pneumonia, 12/2022 C. Moderate Pulmonary HTN 4. Hyperlipidemia A. Statin therapy B. LDL 56, 01/2023 5. History of lung cancer, 2014 A. Non-small cell, [facility], s/p radiation therapy B. Followed by [facility], [place], [place] 6. Diabetes mellitus, type 2 A. Treated for 20 yrs 7. PAD A. History of left subclavian stenosis, treated at [facility] 8. History of colonoscopy, 06/11/2020, Dr. Zuniga A. colonic polyps, left-sided diverticulosis and grade 1-2 internal hemorrhoids 9. Fall with left hip fracture, 01/29/2023 10. Prior CVA, 2007 11. Vocal chord polyp/Hoarseness A. s/p removal of right vocal polyp, 11/2017, Dr. Barksdale 12. Macrocytosis, chronic A. normal B12 and folate, 2022 13. Gout A. Uric acid level, 7.0, 01/2023 History of present illness: 67-year-old white female with recent admission for COVID-19 pneumonia, heart failure exacerbation, recently graduated from home health and home O2 therapy as she is improved from her COVID-19 pneumonia.? Also underwent cardiac catheterization with stent placement in April 2022 Was at her daughter's home today and was going up a step and tripped on her flip-flop and fell down.? Could not bear weight.? Came to the ER.? Diagnosed with left hip fracture.? Admitted for orthopedic consultation and pain relief. The above per Dr. Montana. Patient agrees with above account of events. She denies any syncope or recent chest pain. I last saw her 2 weeks ago and she was feeling the best she had in some time. Despite type II non-STEMI felt related to COVID-pneumonia we did not pursue cardiac catheterization at that time due to the patient having no complaints. She continues to express that she has had no chest pain or significant shortness of breath. EKG, 01/29/2023, sinus rhythm with biatrial enlargement. No acute ST segment changes PFSH PFS Disclaimer: The information contained in this section may have been updated after the patient was seen, as this information can be updated by other users. Medical History Acute respiratory failure with hypoxia CAD (coronary artery disease) APR 2022-Severe ostial mid left main disease as described Successful stenting of the ostial proximal mid distal left main artery reducing the stenosis to less than 10% giving excellent angiograph results Preserved ejection fraction Normal left ventricular end-diastolic pressure Persistent stenosis in a large posterior lateral branch which is best managed medically COPD (chronic obstructive pulmonary disease) Diabetes mellitus Diastoli
--- NOTE | 2023-01-30 08:05 | SW/DCPLANNER ---
Addendum entered by [facility] 02/02/23 08:04: Per Rebecca Carlisle patient has been approved to admit to [facility] today. I will update patient/family and MD. Addendum entered by [facility] 02/01/23 11:20: Per Rebecca mosquera/ Shady Carlisle precert has been started. Addendum entered by [facility] 02/01/23 09:54: Updated patient information will be faxed to Rebecca Carlisle. Original Note: Patient/family are interested in SNF level of care at [facility] if needed after surgery. I will fax information to Rebecca Carlisle this AM in preparation for placement. Ortho consult is ordered for today. Discharge date is unknown at this time.
--- NOTE | 2023-01-30 08:12 | EXP.ACUTE.PN ---
Subjective *Date: 01/30/23 *Time: 08:12 Interval history: Overall patient felt good through the day yesterday evening and through the night unless she moved. No chest discomfort or shortness of air. Cardiac consult reviewed and appreciated Medical Exam Vital signs and Labs for Last 24 Hours: Vital Signs Temp Pulse Pulse Resp BP BP Pulse Ox 01/30/23 07:21 98.4 F 97 H 18 114/65 88 L 01/30/23 06:17 92 H 01/30/23 06:17 88 01/30/23 06:17 90 L 01/30/23 04:00 98.3 F 70 18 123/58 L 90 L 01/29/23 20:00 95 01/29/23 20:00 98.3 F 87 18 105/57 L 90 L 01/29/23 20:00 87 01/29/23 20:00 87 01/29/23 20:00 89 L 01/29/23 17:06 98.3 F 79 18 116/55 L 91 L 01/29/23 16:49 98.4 F 80 20 129/60 01/29/23 15:24 88 32 H 117/73 93 L 01/29/23 15:24 98.4 F 80 18 117/73 93 L Intake and Output 01/29/23 01/30/23 01/30/23 19:59 03:59 11:59 Intake Total 0 / 0 Output Total 0 / 650 650 / 650 Balance 0 / -650 -650 / -650 Intake: Intake, Oral Amount 0 / 0 Output: Output, Urine Amount 0 / 650 650 / 650 Other: Weight 165 lb 0.5 oz 164 lb 6.4 oz Patient Weight 01/30/23 11:59 Weight 164 lb 6.4 oz Laboratory Results - last 24 hr 01/29/23 15:37: WBC 7.7, RBC 3.70 L, Hgb 12.2, Hct 37.5, MCV 101.5 H, MCH 33.0 H, MCHC 32.5, RDW 15.1, Plt Count 308, MPV 8.1, Neut % (Auto) 61.5, Lymph % (Auto) 27.7, Charles % (Auto) 7.9, Eos % (Auto) 2.6, Baso % (Auto) 0.4, Neut # (Auto) 4.7, Lymph # (Auto) 2.1, Charles # (Auto) 0.6, Eos # (Auto) 0.2, Baso # (Auto) 0.0 01/29/23 15:37: PT 10.4, INR 0.96, APTT 21.6 L 01/29/23 15:37: Sodium 137, Potassium 4.2, Chloride 94 L, Carbon Dioxide 27, Anion Gap 20.2 H, BUN 17, Creatinine 1.10 H, Estimated Creat Clear 56, Estimated GFR 50 L, Est GFR ( Amer) 60, Glucose 111 H, Calcium 8.9, Total Bilirubin 0.2, AST 34, ALT 29, Alkaline Phosphatase 94, Total Protein 5.9 L, Albumin 3.6, Globulin 2.3, Albumin/Globulin Ratio 1.6 01/29/23 15:37: Uric Acid 7.0 H 01/29/23 15:59: SARS-CoV-2 (PCR) Not detected, Influenza A Untype (PCR) Not detected, Influenza Type B (PCR) Not detected I & O for Labs for Last 24 Hours: Intake & Output 01/27/23 01/28/23 01/29/23 01/30/23 11:59 11:59 11:59 11:59 Intake Total 0 / 0 Output Total 650 / 650 Balance -650 / -650 Weight 164 lb 6.4 oz Comment:: Patient is pleasant, alert, oriented x3. Lungs clear, heart rate regular. Abdomen soft, extremity exam unchanged. Assessment and Plan *Assessment and plan (1) Closed left hip fracture: Status: Acute Category: Medical Code(s): S72.002A - Fracture of unspecified part of neck of left femur, initial encounter for closed fracture (2) Heart failure with preserved ejection fraction: Status: Acute Category: Medical Code(s): I50.30 - Unspecified diastolic (congestive) heart failure (3) Pulmonary HTN: Status: Acute Category: Medical Code(s): I27.20 - Pulmonary hypertension, unspecified (4) CAD (coronary artery disease): Problem Comment: APR 2022-Severe ostial mid left main disease as described Successful stenting of the ostial proximal mid distal left main artery reducing the stenosis to less than 10% giving excellent angiograph results Preserved ejection fraction Normal left ventricular end-diastolic pressure Persistent stenosis in a large posterior lateral branch which is best managed medically Status: Chronic Qualifiers: Coronary Disease-Associated Artery/Lesion type: [place] artery [place] vs. transplanted heart: [place] heart Associated angina: without angina Qualified Code(s): I25.10 - Atherosclerotic heart disease of [place] coronary artery without angina pectoris Category: Medical Code(s): I25.10 - Atherosclerotic heart disease of [place] coronary artery without angina pectoris Plan Admit to hospital. [facility]
[2023-01-30 08:25] LABS: Magnesium 1.6 mg/dl (1.6-2.3)
--- NOTE | 2023-01-30 08:45 | XR_ITS ---
FINAL REPORT CLINICAL HISTORY: LOW OXYGEN SATS COMPARISON: 01/03/2023 FINDINGS: SINGLE-VIEW CHEST The heart size is normal. The mediastinum is normal. There is mild bibasilar atelectasis or pneumonia. There is a stent in the left upper mediastinum. There is no pneumothorax. IMPRESSION: Mild bibasilar atelectasis versus pneumonia. Reviewed, Interpreted and Dictated by Thanh Jones III, MD Transcribed by Imani Cortez Authenticated and [facility]
--- NOTE | 2023-01-30 08:47 | EXP.ORTH.CON ---
History of Present Illness *Admission Date: 01/29/23 *History of present illness: 67-year-old white female with recent admission for COVID-19 pneumonia, heart failure exacerbation, recently graduated from home health and home O2 therapy as she is improved from her COVID-19 pneumonia. Also underwent cardiac catheterization with stent placement in April 2022 Was at her daughter's home today and was going up a step and tripped on her flip-flop and fell down. Could not bear weight. Came to the ER. Diagnosed with left hip fracture. Admitted for orthopedic consultation and pain relief. She is on Plavix following her heart stent and took Plavix yesterday morning PFSH PFS Disclaimer: The information contained in this section may have been updated after the patient was seen, as this information can be updated by other users. Medical History Acute respiratory failure with hypoxia CAD (coronary artery disease) APR 2022-Severe ostial mid left main disease as described Successful stenting of the ostial proximal mid distal left main artery reducing the stenosis to less than 10% giving excellent angiograph results Preserved ejection fraction Normal left ventricular end-diastolic pressure Persistent stenosis in a large posterior lateral branch which is best managed medically COPD (chronic obstructive pulmonary disease) Diabetes mellitus Diastolic dysfunction ACUÑA (dyspnea on exertion) History of placement of stent in LAD coronary artery HLD (hyperlipidemia) HTN (hypertension) PAD (peripheral artery disease) Pneumonia due to COVID-19 virus Subclavian artery stenosis, left Tobacco use Surgical History Hx of right coronary artery stent placement Family History Other No significant family history Social History (Updated 01/29/23 @ 17:14 by Nasra Hall RN) Smoking Status: Current every day smoker tobacco type: cigarettes packs per day: 1 second hand exposure: No alcohol intake: never substance use type: denies use current occupational status: retired Travel in the last 8 weeks: None household members: none housing: house current occupational exposures/hazards: No caffeine: Yes Meds Home Medications and Allergies Home Medications Medication Instructions Recorded Confirmed Type atorvastatin 20 mg tablet 20 mg PO HS Cholesterol 90 days 10/26/17 01/29/23 History ##90 cetirizine 10 mg tablet 10 mg PO DAILY Allergy symptoms 30 10/26/17 01/29/23 History days ##30 clopidogrel 75 mg tablet 75 mg PO DAILY Blood thinner 90 10/26/17 01/29/23 History days ##90 gabapentin 300 mg capsule 600 mg PO BID Nerve pain 90 days 10/26/17 01/29/23 History ##360 meloxicam 15 mg tablet 15 mg PO DAILY Arthritis 90 days 10/26/17 01/29/23 History ##90 metformin 1,000 mg tablet 1,000 mg PO BIDWMEAL Diabetes 90 10/26/17 01/29/23 History days ##180 aspirin 81 mg tablet,delayed 81 mg PO DAILY Heart health 05/06/18 01/29/23 History release atenolol 25 mg tablet 25 mg PO DAILY Heart rate 06/03/20 01/29/23 History escitalopram oxalate 5 mg tablet 5 mg PO DAILY Anxiety 06/03/20 01/29/23 History ipratropium 0.5 mg-albuterol 3 mg 3 ml inhalation QIDP PRN Shortness 05/03/22 01/29/23 History (2.5 mg base)/3 mL nebulization Of Breath soln spironolactone 50 mg tablet 50 mg PO BID Fluid #60 tabs 09/21/22 01/29/23 Rx allopurinol 100 mg tablet 200 mg PO DAILY Gout 12/27/22 01/29/23 History bumetanide 1 mg tablet 1 mg PO BIDL #60 tabs 01/03/23 01/29/23 Rx fluticasone fur. 100 mcg-umeclid 1 inh inhalation DAILY COPD 01/17/23 01/29/23 History 62.5 mcg-vilant 25 mcg inhalat.powder (Trelegy Ellipta) azithromycin 250 mg tablet 250 mg PO DIRECTED COPD 01/29/23 01/29/23 History magnesium oxide 400 mg (241.3 mg 400 mg PO DAILY Supplement 01/30/23 01/30/23 History magnesium) tablet New Prescriptions to
[2023-01-30 08:58] LABS: Oxygen 4 LPM %; Source Right Brachial
[2023-01-30 08:59] LABS: ABG PH 7.45 mmol/L (7.35-7.45)
[2023-01-30 09:01] LABS: ABG Base Excess 4.1 mmol/L (-2.4-2.3); ABG Oxygen Saturation 86 % (90-100); ABG TCO2 29.3 mmhg (23-27)
--- NOTE | 2023-01-30 11:11 | HMH.PHAINT1 ---
Pharmacy Intervention Comments: MEDICATION RECONCILIATION COMPLETED ON PATIENT USING EXTERNAL FILL HISTORY FROM PHARMACY AND DISCHARGE SUMMARY FROM PREVIOUS ADMISSION. -ASUNCION JULIAN, JESSED
--- NOTE | 2023-01-30 13:44 | PC.NURSE ---
Pt had no urine output since previous in and out cath at approx 0500 and reported a strong urge to urinate. She was bladder scanned which showed >800mls. Thomas catheter inserted with 900mls of clear pale urine out immediately so catheter was anchored. Specimen sent to lab per protocol. Dr Montana aware.
[2023-01-30 13:59] LABS: Microscopic, Urine URINE MICROSCOPIC (MICROSCOPIC)
[2023-01-30 14:31] LABS: Appearance,Urine CLEAR (Clear); Bilirubin,Urine Negative (Negative); Blood, Urine Negative (Negative); Color,Urine YELLOW (Yellow); Glucose,Urine (UA) Negative (Negative); Ketones,Urine Negative (Negative); Leukocyte Esterase,Urine Negative (Negative); Nitrate,Urine Negative (Negative); Protein,Urine Negative (Negative); Urobilinogen,Urine 0.2 EU/dl (0.2)
[2023-01-30 15:02] LABS: Amorphous Sediment,Urine 1+ /lpf; Bacteria,Urine Trace /lpf; Yeast,Urine 1+ /lpf
--- NOTE | 2023-01-30 17:47 | PC.NURSE ---
Pt is alert and oriented x4. Oxygen has been increased to 4LNC with O2 sats now measuring 90-94%. Incentive spirometer at bedside and pt instructed on use. Thomas catheter placed due to urinary retention. She requested pain medication x2 thus far. Patient educated on importance to ring out if she is having pain or needs to reposition for comfort. She verbalized understanding. Family at bedside and is supportive. She is currently resting in bed with her eyes closed. Bed is locked and in the lowest position, call light is within reach.
[2023-01-31] VITALS (23 sets, daily range): BP systolic 95–159; BP diastolic 51–83; PULSE 89–107; RESP 15–22; TEMP 36.8–37.1; O2SAT 86–96; BMI 29.1
--- NOTE | 2023-01-31 04:56 | PC.NURSE ---
Pt. aox3 with some confusion when removing her oxygen. f/c in place with good output, pain meds given twice so far on my shift, turn every two hours, 02 increased to 5L NC per clearance form respiratory therapy and now sats at 90-91 percent.
[2023-01-31 06:46] LABS: Basophils % 0.3 % (0.1-2.0); Eosinophils # 0.1 K/mm3 (0.0-0.4); Eosinophils % 1.2 % (0.1-12.0); Hematocrit 38.2 % (37.0-47.0); Hemoglobin 12.6 g/dL (12.2-16.2); Lymphocytes # 1.4 K/mm3 (0.7-4.5); Lymphocytes % 15.1 % (10-50); Mean Corpuscular Hemoglobin 33.3 pg (27.0-31.2); Mean Platelet Volume 8.4 fl (7.4-10.4); Neutrophils # 6.8 K/mm3 (1.8-7.8); Neutrophils % 72.3 % (37.0-80.0); Platelet Count 200 K/mm3 (142-424); Red Blood Count 3.78 M/mm3 (4.20-5.40); Red Cell Distribution Width 15.4 % (11.5-17.5); White Blood Count 9.4 K/mm3 (4.8-10.8)
[2023-01-31 07:01] LABS: Blood Urea Nitrogen 12 mg/dl (7-17); Calcium 8.6 mg/dl (8.4-10.2); Carbon Dioxide 25 mmol/L (22.0-30.0); Chloride 98 mmol/L (98-107); Creatinine Clearance Estimated 62 mL/min (50-200); Estimated Glomerular Filt Rate 83 ml/min (>60); GFR (African American) 101 ML/MIN (>60); Glucose 196 mg/dl (74-100); Sodium 134 mmol/L (136-145)
--- NOTE | 2023-01-31 07:54 | EXP.ACUTE.PN ---
Subjective *Date: 01/31/23 *Time: 07:54 Interval history: Did well overnight. Stable in regards to respiratory status Medical Exam Vital signs and Labs for Last 24 Hours: Vital Signs Temp Pulse Pulse Resp BP Pulse Ox 01/31/23 07:30 98.5 F 100 H 16 95/65 L 88 L 01/31/23 05:50 97 H 01/31/23 05:50 98 H 01/31/23 05:50 88 L 01/31/23 04:00 98.5 F 98 H 20 130/66 90 L 01/30/23 20:00 95 01/30/23 20:00 98.7 F 92 H 22 134/63 90 L 01/30/23 18:35 94 H 01/30/23 18:35 94 H 01/30/23 18:35 91 L 01/30/23 14:59 98.6 F 79 17 111/55 L 91 L 01/30/23 14:05 74 01/30/23 14:05 74 01/30/23 14:05 92 L Intake and Output 01/30/23 01/31/23 01/31/23 19:59 03:59 11:59 Intake Total 120 / 120 0 / 120 Output Total 900 / 1850 800 / 1850 150 / 1850 Balance -780 / -1730 -800 / -1730 -150 / -1730 Intake: Intake, Oral Amount 120 / 120 0 / 120 Output: Output, Urine Amount 900 / 1850 800 / 1850 150 / 1850 Other: Number of Unmeasured Voids 0 0 0 Weight 158 lb 4 oz Patient Weight 01/31/23 11:59 Weight 158 lb 4 oz Laboratory Results - last 24 hr 01/29/23 15:37: Magnesium 1.6 01/30/23 08:45: Specimen Source Right brachial, O2 % 4 lpm, ABG pH 7.45, ABG pCO2 41.0, ABG pO2 49.0 L, ABG HCO3 28.0 H, ABG Total CO2 29.3 H, ABG O2 Saturation 86 L*, ABG Base Excess 4.1 H, Luca Test N/a 01/30/23 13:15: Urine Color Yellow, Urine Appearance Clear, Urine pH 8.0, Ur Specific [place] 1.010, Urine Protein Negative, Urine Glucose (UA) Negative, Urine Ketones Negative, Urine Blood Negative, Urine Nitrate Negative, Urine Bilirubin Negative, Urine Urobilinogen 0.2, Ur Leukocyte Esterase Negative, Urine RBC 3-5, Urine WBC 3-5, Ur Squamous Epith Cells 10-20, Amorphous Sediment 1+, Urine Bacteria Trace, Urine Yeast 1+ 01/31/23 05:00: WBC 9.4, RBC 3.78 L, Hgb 12.6, Hct 38.2, MCV 101.0 H, MCH 33.3 H, MCHC 33.0, RDW 15.4, Plt Count 200 D, MPV 8.4, Neut % (Auto) 72.3, Lymph % (Auto) 15.1, [place] % (Auto) 11.0 H, Eos % (Auto) 1.2, Baso % (Auto) 0.3, Neut # (Auto) 6.8, Lymph # (Auto) 1.4, [place] # (Auto) 1.0, Eos # (Auto) 0.1, Baso # (Auto) 0.0 01/31/23 05:00: Sodium 134 L, Potassium 5.0, Chloride 98, Carbon Dioxide 25, Anion Gap 16.0 H, BUN 12 D, Creatinine 0.70 D, Estimated Creat Clear 62, Estimated GFR 83, Est GFR ( Amer) 101 D, Glucose 196 H, Calcium 8.6 I & O for Labs for Last 24 Hours: Intake & Output 01/28/23 01/29/23 01/30/23 01/31/23 11:59 11:59 11:59 11:59 Intake Total 0 / 0 120 / 120 Output Total 650 / 650 1850 / 1850 Balance -650 / -650 -1730 / -1730 Weight 164 lb 6.4 oz 158 lb 4 oz Comment:: Patient is pleasant, alert, oriented x3. Lungs clear, heart rate regular. Abdomen soft, extremity exam unchanged. Assessment and Plan *Assessment and plan (1) Closed left hip fracture: Status: Acute Category: Medical Code(s): S72.002A - Fracture of unspecified part of neck of left femur, initial encounter for closed fracture (2) Heart failure with preserved ejection fraction: Status: Acute Category: Medical Code(s): I50.30 - Unspecified diastolic (congestive) heart failure (3) Pulmonary HTN: Status: Acute Category: Medical Code(s): I27.20 - Pulmonary hypertension, unspecified (4) CAD (coronary artery disease): Problem Comment: APR 2022-Severe ostial mid left main disease as described Successful stenting of the ostial proximal mid distal left main artery reducing the stenosis to less than 10% giving excellent angiograph results Preserved ejection fraction Normal left ventricular end-diastolic pressure Persistent stenosis in a large posterior lateral branch which is best managed medically Status: Chronic Qualifiers: Coronary Disease-Associated Artery/Lesion type: [place] artery [place] vs. transplanted heart: [place] heart Associated angina: without angina
--- NOTE | 2023-01-31 09:41 | PC.NURSE ---
courtesy tech round: pt is sleeping in bed with call light within reach
--- NOTE | 2023-01-31 13:05 | EXP.CARD.PN ---
Subjective Subjective Date: 01/31/23 Time: 13:05 Principal diagnosis: Left hip fracture Interval history: 67-year-old white female in bed in no acute distress. Slightly confused (likely related to pain medication and lack of sleep) but orients easily. Daughter is in the room. Patient denies chest pain, pressure or tightness. Planning is for surgery today Exam Data for Last 24 hours Vital signs and Labs for Last 24 Hours: Temp Pulse Resp BP Pulse Ox 98.5 F 100 H 16 95/65 L 88 L 01/31/23 07:30 01/31/23 07:30 01/31/23 07:30 01/31/23 07:30 01/31/23 08:00 Laboratory Results - last 24 hr 01/30/23 13:15: Urine Color Yellow, Urine Appearance Clear, Urine pH 8.0, Ur Specific [place] 1.010, Urine Protein Negative, Urine Glucose (UA) Negative, Urine Ketones Negative, Urine Blood Negative, Urine Nitrate Negative, Urine Bilirubin Negative, Urine Urobilinogen 0.2, Ur Leukocyte Esterase Negative, Urine RBC 3-5, Urine WBC 3-5, Ur Squamous Epith Cells 10-20, Amorphous Sediment 1+, Urine Bacteria Trace, Urine Yeast 1+ 01/31/23 05:00: WBC 9.4, RBC 3.78 L, Hgb 12.6, Hct 38.2, MCV 101.0 H, MCH 33.3 H, MCHC 33.0, RDW 15.4, Plt Count 200 D, MPV 8.4, Neut % (Auto) 72.3, Lymph % (Auto) 15.1, [place] % (Auto) 11.0 H, Eos % (Auto) 1.2, Baso % (Auto) 0.3, Neut # (Auto) 6.8, Lymph # (Auto) 1.4, [place] # (Auto) 1.0, Eos # (Auto) 0.1, Baso # (Auto) 0.0 01/31/23 05:00: Sodium 134 L, Potassium 5.0, Chloride 98, Carbon Dioxide 25, Anion Gap 16.0 H, BUN 12 D, Creatinine 0.70 D, Estimated Creat Clear 62, Estimated GFR 83, Est GFR ( Amer) 101 D, Glucose 196 H, Calcium 8.6 I & O for Last 24 hours: Intake & Output 01/29/23 01/30/23 01/31/23 02/01/23 11:59 11:59 11:59 11:59 Intake Total 0 / 0 120 / 120 Output Total 650 / 650 1850 / 1850 Balance -650 / -650 -1730 / -1730 Weight 164 lb 6.4 oz 158 lb 4 oz 158 lb 3.965 oz *Routine Respiratory Exam Respiratory: Present decreased breath sounds and CTA bilaterally *Routine Cardiovascular Exam Cardiovascular: Present RRR *Routine Extremities Exam Extremities: Absent edema Progress Note: A&P Assessment and plan (1) Closed left hip fracture: Status: Acute (2) Heart failure with preserved ejection fraction: Status: Acute (3) Pulmonary HTN: Status: Acute (4) CAD (coronary artery disease): Problem details: APR 2022-Severe ostial mid left main disease as described Successful stenting of the ostial proximal mid distal left main artery reducing the stenosis to less than 10% giving excellent angiograph results Preserved ejection fraction Normal left ventricular end-diastolic pressure Persistent stenosis in a large posterior lateral branch which is best managed medically Status: Chronic Assessment and Plan Assessment and Plan for All Diagnoses:: 1.? Fall with left hip fracture, defer to Ortho. Patient is cleared from a cardiac standpoint to proceed with surgery. Holding aspirin and Plavix at this time. Plan to resume aspirin and Plavix tomorrow. 2.? Coronary artery disease with most recent coronary stenting in April 2022, clinically stable.? No plans for invasive testing. Hold ASA and plavix until 24 hrs after surgery 3.? Hypertension controlled on atenolol 4.? Hyperlipidemia continue atorvastatin therapy 5.? COPD/pulmonary hypertension Resume Bumex and spironolactone after surgery 6.? Chronic heart failure with preserved ejection fraction compensated at this time 7.? Continued tobacco use cessation recommended 8.? Diabetes mellitus type [address] [place] We will continue to follow with you.
--- NOTE | 2023-01-31 13:30 | XR_ITS ---
FINAL REPORT CLINICAL HISTORY: Shortness of breath COMPARISON: 01/30/2023 FINDINGS: A single portable view of the chest was obtained. The heart size and pulmonary vascularity are within normal limits. The mediastinum is within normal limits. Worsening bibasilar atelectasis or pneumonia. The bony thorax is intact. IMPRESSION: Worsening bibasilar atelectasis or pneumonia Reviewed, Interpreted and Dictated by Thanh Jones III, MD Transcribed by Radha Burrell Authenticated and . [facility]
--- NOTE | 2023-01-31 14:09 | P.PN_ITS ---
[facility] Disclaimer: The information contained in this section may have been updated after the patient was seen, as this information can be updated by other users. Medical History Acute respiratory failure with hypoxia CAD (coronary artery disease) APR 2022-Severe ostial mid left main disease as described Successful stenting of the ostial proximal mid distal left main artery reducing the stenosis to less than 10% giving excellent angiograph results Preserved ejection fraction Normal left ventricular end-diastolic pressure Persistent stenosis in a large posterior lateral branch which is best managed medically COPD (chronic obstructive pulmonary disease) Diabetes mellitus Diastolic dysfunction ACUÑA (dyspnea on exertion) History of placement of stent in LAD coronary artery HLD (hyperlipidemia) HTN (hypertension) PAD (peripheral artery disease) Pneumonia due to COVID-19 virus Subclavian artery stenosis, left Tobacco use Surgical History Hx of right coronary artery stent placement Family History Other No significant family history Social History (Updated 01/29/23 @ 17:14 by Nasra Hall RN) Smoking Status: Current every day smoker tobacco type: cigarettes packs per day: 1 second hand exposure: No alcohol intake: never substance use type: denies use current occupational status: retired Travel in the last 8 weeks: None household members: none housing: house current occupational exposures/hazards: No caffeine: Yes [facility] Anesthesia Checklist Patient Identification Patient Identification: Arm Band Structural Data Admitted From: Inpatient Planned Operative Procedure/s: Left hip cephalomedullary nailing Consent for Planned Operative Procedure(s) Verified: Yes Verified Documents: Surgical Consent and History and Physical NPO Status Verified Time NPO: 00:00 Additional verifications Anesthesia Reactions: No Hx Blood Transfusions: No Blood Transfusion Reaction: No Airway Assessment C-Spine Mobility Assessed: Yes TMJ Mobility Assessed: Yes Dentition: Edentulous Neurological Assessment Level of Consciousness: Awake and Alert Anesthesia Plan Anesthesia Risk discussed: Yes Anesthesia Plan: Verified ASA Class: IV Anesthesia Type: General Preoperative Comments Pre-Operative Comments: upon arriving to preop area, pt's o2 sats were 80-81% on 6L nasal cannula. Simple facemask applied and sats increased to 88-92%. CXR ordered. Discussed with Dr. [place] and Dr. Bender. 20 mg Lasix IV given. Steroids to be given intraoperatively.
--- NOTE | 2023-01-31 14:45 | XR_ITS ---
PROCEDURE INFORMATION: Exam: XR Left Hip Exam date and time: 01/31/2023 2:45 PM Age: 67 years old Clinical indication: Device placement; Prior surgery; Surgery date: Post-operative (0-2 days); Surgery type: Tfn- cephalomedullary nailing (lt); Patient HX: Femoral FX TECHNIQUE: Imaging protocol: Radiologic exam of the left hip. Views: 2 or 3 views hip with pelvis when performed. COMPARISON: CR XR HIP LT 2-3V W/PELVIS 01/29/2023 3:55 PM FINDINGS: Tubes, catheters and devices: Hardware is well positioned. Bones/joints: Three, intraoperative, fluoroscopic spot images of the left hip are submitted demonstrating placement fixation hardware in the left hip and femur. No bone or joint abnormalities are identified. Soft tissues: No soft tissue masses or radiopaque foreign bodies. IMPRESSION: Intraoperative fluoroscopic spot images of the left hip. No radiographic abnormalities.
--- NOTE | 2023-01-31 16:00 | EXP.OP.NOTE ---
Date of procedure: 01/31/23 Pre-op Diagnosis:: Left intertrochanteric hip fracture Post-op Diagnosis:: Same Procedure performed:: Cephalomedullary nailing left proximal femur Surgeon:: Trino Bender DO ASSOCIATE DIRECTOR DATA & ANALYTICS:: Dao Chapman Anesthesia: GETA Estimated blood loss (mL): 100 Operative findings:: Nondisplaced intertrochanteric left hip fracture Operative note:: Patient is identified preoperatively. Left hip marked with a yes and my initials. Transported to operative suite placed supine on the radiolucent fracture table. Left hip was prepped and draped in normal sterile fashion. Once prepped and draped final operative timeout performed to identify proper patient procedure and extremity. Everyone involved the case agreed. No counter indication began. She did receive preoperative antibiotics. Marking pen was used to fahad tip of the greater trochanter and a 2 fingerbreadth incision 2 fingerbreadths above the greater trochanter. Skin F was used incise the skin and the IT band. Direct palpation on the greater trochanter was felt and the guide tip wire was placed. The wire was confirmed to be in good position on the AP and lateral views on the C arm. Opening reamer for the trochanter was utilized then. At that point ball-tipped guidewire was placed down into the femoral canal and confirmed on AP and lateral views. Size 10 TFN Synthes cephalomedullary nail was selected and placed over the guidewire. X-ray was used for proper depth of the sasha. Once impacted to the proper depth the triple cannula was used to place the guidewire into the femoral neck and head. This was visualized on both the AP and lateral views. And measured to the appropriate length. Cortex breaker was used laterally and the step reamer was placed and visualized in AP and lateral views. Appropriate helical blade was selected and impacted into place. And then locked into place superiorly to the nail. Attention was then taken distally where through the guide the static screw was placed distally in the TFN. The restorative art embalmer's were then removed copious irrigation wound performed x-rays taken AP and lateral views and saved. IT band closed with 0 Vicryl deep layers closed with 0 Vicryl 2-0 Vicryl subcutaneous and surgical clips in the skin for closure sterile hip dressing placed. Patient wake from anesthesia taken recovery in stable condition. Condition: stable Disposition: PACU Complications:: None apparent
[2023-01-31 16:44] LABS: POC Glucose,Bedside 210 (70-110)
--- NOTE | 2023-01-31 18:54 | PC.NURSE ---
PT IS RESTING IN BED. ALERT AND ORIENTED X3. PT HAS BEEN VERY DROWSY SINCE ARRIVING BACK TO THE FLOOR FROM SURGERY. PT WAS BROUGHT BACK TO THE FLOOR FROM PACU ON THE SIMPLE MASK. RESPIRATORY SWITCHED PT TO 50% VENTI MASK. O2 SATURATION MAINTAINING 87-90%. LUNG SOUNDS DIMINISHED WITH SCATTERED WHEEZES. ABDOMEN SOFT/NON TENDER WITH ACTIVE BOWEL SOUNDS. DRESSING NOTED TO LEFT HIP C/D/I. WILL CONTINUE TO MONITOR.
[2023-02-01] VITALS (12 sets, daily range): BP systolic 102–132; BP diastolic 54–69; PULSE 70–102; RESP 18–22; TEMP 36.6–43; O2SAT 85–95; BMI 30.1
--- NOTE | 2023-02-01 06:52 | PC.NURSE ---
Pt has been AOx4 with some confusion at times pulling at her cords. She c/o pain 1x t/o shift and was administered PRN pain medication. Pt states favorable results. DSG to left hip CDI. Thomas in place. Call light within reach.
[2023-02-01 07:01] LABS: Basophils % 0.1 % (0.1-2.0); Eosinophils # 0.1 K/mm3 (0.0-0.4); Eosinophils % 1.3 % (0.1-12.0); Hematocrit 34.1 % (37.0-47.0); Hemoglobin 11.1 g/dL (12.2-16.2); Lymphocytes # 0.8 K/mm3 (0.7-4.5); Lymphocytes % 8.6 % (10-50); Mean Corpuscular HGB Conc 32.4 g/dL (31.8-35.4); Mean Corpuscular Hemoglobin 32.9 pg (27.0-31.2); Mean Corpuscular Volume 101.5 fl (81-99); Mean Platelet Volume 8.5 fl (7.4-10.4); Monocytes # 0.4 K/mm3 (0.1-1.0); Monocytes % 4.8 % (1.7-9.3); Neutrophils # 7.6 K/mm3 (1.8-7.8); Neutrophils % 85.1 % (37.0-80.0); Platelet Count 214 K/mm3 (142-424); Red Blood Count 3.36 M/mm3 (4.20-5.40); Red Cell Distribution Width 15.2 % (11.5-17.5); White Blood Count 8.9 K/mm3 (4.8-10.8)
[2023-02-01 07:03] LABS: MANUAL DIFFERENTIAL MANUAL DIFFERENTIAL (MANUAL DIFF)
[2023-02-01 07:08] LABS: Anion Gap 15.2 mEq/L (5-15); Blood Urea Nitrogen 17 mg/dl (7-17); Calcium 8.6 mg/dl (8.4-10.2); Carbon Dioxide 27 mmol/L (22.0-30.0); Chloride 96 mmol/L (98-107); Creatinine Clearance Estimated 64 mL/min (50-200); Estimated Glomerular Filt Rate 83 ml/min (>60); GFR (African American) 101 ML/MIN (>60); Glucose 241 mg/dl (74-100); Potassium 4.2 mmoL/L (3.5-5.1); Sodium 134 mmol/L (136-145)
[2023-02-01 08:15] LABS: Lymphocytes % 13 % (10-50); Macrocytosis 1+; Monocytes % 3 % (2-9); Neutrophils % 84 % (42-76); Platelet Estimate Normal; Total Cells Counted 100
--- NOTE | 2023-02-01 08:51 | P.PN_ITS ---
Subjective *Date: 02/01/23 *Time: 08:51 Interval history: Patient feels much better. Pain in her hip is much better following surgery. She is alert and oriented. Ortho Exam (Inpt) Vital signs and Labs for Last 24 Hours: Temp Pulse Resp BP Pulse Ox FiO2 98.1 F 102 H 22 132/57 L 94 L 50 02/01/23 08:00 02/01/23 08:00 02/01/23 08:00 02/01/23 08:00 02/01/23 06:15 02/01/23 06:15 Laboratory Results - last 24 hr 01/31/23 16:37: POC Glucose 210 H 02/01/23 06:43: WBC 8.9, RBC 3.36 L, Hgb 11.1 L, Hct 34.1 L, MCV 101.5 H, MCH 32.9 H, MCHC 32.4, RDW 15.2, Plt Count 214, MPV 8.5, Neut % (Auto) 85.1 H, Lymph % (Auto) 8.6 L, [place] % (Auto) 4.8, Eos % (Auto) 1.3, Baso % (Auto) 0.1, Neut # (Auto) 7.6, Lymph # (Auto) 0.8, [place] # (Auto) 0.4, Eos # (Auto) 0.1, Baso # (Auto) 0.0, Total Counted 100, Neutrophils % (Manual) 84 H, Lymphocytes % (Manual) 13, Monocytes % (Manual) 3, Platelet Estimate Normal, Macrocytosis 1+ 02/01/23 06:43: Sodium 134 L, Potassium 4.2, Chloride 96 L, Carbon Dioxide 27, Anion Gap 15.2 H, BUN 17 D, Creatinine 0.70, Estimated Creat Clear 64, Estimated GFR 83, Est GFR ( Amer) 101, Glucose 241 H, Calcium 8.6 I & O for Labs for Last 24 Hours: Intake & Output 01/29/23 01/30/23 01/31/23 02/01/23 23:59 23:59 23:59 23:59 Intake Total 120 / 120 60 / 109 289 / 289 Output Total 0 / 0 1550 / 2350 1650 / 1650 400 / 400 Balance 0 / 0 -1430 / -2230 -1590 / -1541 -111 / -111 Weight 165 lb 0.5 oz 164 lb 6.4 oz 158 lb 3.965 oz 163 lb 9 oz Additional findings:: Left hip: Surgical dressing in place no active drainage Assessment and Plan *Assessment and plan (1) Intertrochanteric fracture of left hip: Problem Comment: Status post cephalomedullary nailing Status: Acute Category: Medical Code(s): S72.142A - Displaced intertrochanteric fracture of left femur, initial encounter for closed fracture Plan Progressive physical therapy. Anticipate rehabilitation placement for continued rehab. Weightbearing as tolerated on rolling walker. She will follow-up in the clinic 2 weeks after discharge for staple removal.
--- NOTE | 2023-02-01 09:01 | EXP.CARD.PN ---
Subjective Subjective Date: 02/01/23 Time: 09:01 Principal diagnosis: Left hip fracture Interval history: 67-year-old white female in bed eating breakfast in no acute distress. Still with some mild confusion but easily orients. Patient is still on oxygen by nasal cannula with intermittent Ventimask use. Chest x-ray yesterday evening showed worsening infiltrates/pneumonia. Hip surgery performed yesterday without complications. Exam Data for Last 24 hours Vital signs and Labs for Last 24 Hours: Temp Pulse Resp BP Pulse Ox FiO2 98.1 F 102 H 22 132/57 L 94 L 50 02/01/23 08:00 02/01/23 08:00 02/01/23 08:00 02/01/23 08:00 02/01/23 06:15 02/01/23 06:15 Laboratory Results - last 24 hr 01/31/23 16:37: POC Glucose 210 H 02/01/23 06:43: WBC 8.9, RBC 3.36 L, Hgb 11.1 L, Hct 34.1 L, MCV 101.5 H, MCH 32.9 H, MCHC 32.4, RDW 15.2, Plt Count 214, MPV 8.5, Neut % (Auto) 85.1 H, Lymph % (Auto) 8.6 L, [place] % (Auto) 4.8, Eos % (Auto) 1.3, Baso % (Auto) 0.1, Neut # (Auto) 7.6, Lymph # (Auto) 0.8, [place] # (Auto) 0.4, Eos # (Auto) 0.1, Baso # (Auto) 0.0, Total Counted 100, Neutrophils % (Manual) 84 H, Lymphocytes % (Manual) 13, Monocytes % (Manual) 3, Platelet Estimate Normal, Macrocytosis 1+ 02/01/23 06:43: Sodium 134 L, Potassium 4.2, Chloride 96 L, Carbon Dioxide 27, Anion Gap 15.2 H, BUN 17 D, Creatinine 0.70, Estimated Creat Clear 64, Estimated GFR 83, Est GFR ( Amer) 101, Glucose 241 H, Calcium 8.6 I & O for Last 24 hours: Intake & Output 01/29/23 01/30/23 01/31/23 02/01/23 11:59 11:59 11:59 11:59 Intake Total 0 / 0 120 / 120 349 / 349 Output Total 650 / 650 1850 / 1850 1100 / 1100 Balance -650 / -650 -1730 / -1730 -751 / -751 Weight 164 lb 6.4 oz 158 lb 4 oz 163 lb 9 oz Constitutional Constitutional: no acute distress *Routine Respiratory Exam Respiratory: Present rhonchi, wheezes and diminished air movement *Routine Cardiovascular Exam Cardiovascular: Present RRR *Routine Extremities Exam Extremities: Present edema; Absent cyanosis or clubbing Progress Note: A&P Assessment and plan (1) Intertrochanteric fracture of left hip: Problem details: Status post cephalomedullary nailing Status: Acute (2) Closed left hip fracture: Status: Acute (3) Heart failure with preserved ejection fraction: Status: Acute (4) Pulmonary HTN: Status: Acute (5) CAD (coronary artery disease): Problem details: APR 2022-Severe ostial mid left main disease as described Successful stenting of the ostial proximal mid distal left main artery reducing the stenosis to less than 10% giving excellent angiograph results Preserved ejection fraction Normal left ventricular end-diastolic pressure Persistent stenosis in a large posterior lateral branch which is best managed medically Status: Chronic Assessment and Plan Assessment and Plan for All Diagnoses:: 1.? Fall with left hip fracture, defer to Ortho. Status post surgery, 01/31/2023 2.? Coronary artery disease with most recent coronary stenting in April 2022, clinically stable.? No plans for invasive testing. Restart ASA 81 mg today and plavix 75 mg starting tomorrow 3.? Hypertension controlled on atenolol 4.? Hyperlipidemia continue atorvastatin therapy 5.? COPD/pulmonary hypertension Resume Bumex and spironolactone today 6.? Chronic heart failure with preserved ejection fraction Resuming diuretics today 7.? Continued tobacco use cessation recommended 8.? Diabetes mellitus type [address] [place] Chest x-ray with infiltrates possible pneumonia versus fluid overload. Restarting diuretics today We will continue to follow with you.
--- NOTE | 2023-02-01 10:11 | EXP.ACUTE.PN ---
Subjective *Date: 02/01/23 *Time: 10:11 Interval history: Patient did well during the OR yesterday and had a fairly good night, O2 saturations in the upper 80%. This morning she is more awake, alert, eating breakfast vigorously. Her pain is much improved after correction of her left hip fracture. Medical Exam Vital signs and Labs for Last 24 Hours: Vital Signs Temp Pulse Pulse Resp BP Pulse Ox FiO2 02/01/23 08:00 98.1 F 102 H 22 132/57 L 01/31/23 17:05 98.8 F 102 H 20 145/71 H 94 L 01/31/23 16:55 98.8 F 101 H 21 143/83 H 93 L 01/31/23 16:45 98.8 F 101 H 21 138/82 93 L 01/31/23 16:35 98.8 F 97 H 21 159/80 H 93 L 02/01/23 06:15 70 02/01/23 06:15 72 02/01/23 06:15 94 L 50 02/01/23 04:00 97.9 F 80 20 127/66 94 L 02/01/23 00:00 98.0 F 88 112/60 95 02/01/23 00:00 95 50 01/31/23 20:00 92 L 50 01/31/23 23:55 98.3 F 90 15 112/62 95 50 01/31/23 22:55 89 18 106/58 L 96 50 01/31/23 21:55 93 H 20 103/57 L 94 L 50 01/31/23 20:55 102 H 20 127/51 L 92 L 50 01/31/23 19:55 103 H 22 133/62 92 L 50 01/31/23 19:25 98.6 F 107 H 22 127/62 91 L 50 01/31/23 19:06 104 H 01/31/23 19:06 104 H 01/31/23 19:06 87 L 50 01/31/23 18:55 101 H 20 123/61 87 L 01/31/23 18:25 99 H 20 116/65 93 L 01/31/23 17:55 103 H 20 135/66 86 L 01/31/23 17:40 94 H 18 136/65 91 L 01/31/23 17:25 94 H 20 138/59 L 90 L 01/31/23 17:10 98.4 F 97 H 18 131/72 94 L 01/31/23 16:00 91 L Intake and Output 01/31/23 02/01/23 02/01/23 19:59 03:59 11:59 Intake Total 60 / 349 49 / 349 240 / 349 Output Total 700 / 1100 0 / 1100 400 / 1100 Balance -640 / -751 49 / -751 -160 / -751 Intake: Intake, Oral Amount 60 / 300 240 / 300 Intake, Total IV Amount Cefazolin Sodium 1 gm In 0.9 % Sodium Chloride 50 ml @ 100 mls /hr IV Q8H [facility] Rx#:[id number] Output: Output, Urine Amount 700 / 1100 0 / 1100 400 / 1100 Other: Number of Unmeasured Voids 0 0 0 Weight 158 lb 3.965 oz 163 lb 9 oz Patient Weight 02/01/23 11:59 Weight 163 lb 9 oz Laboratory Results - last 24 hr 01/31/23 16:37: POC Glucose 210 H 02/01/23 06:43: WBC 8.9, RBC 3.36 L, Hgb 11.1 L, Hct 34.1 L, MCV 101.5 H, MCH 32.9 H, MCHC 32.4, RDW 15.2, Plt Count 214, MPV 8.5, Neut % (Auto) 85.1 H, Lymph % (Auto) 8.6 L, Henry % (Auto) 4.8, Eos % (Auto) 1.3, Baso % (Auto) 0.1, Neut # (Auto) 7.6, Lymph # (Auto) 0.8, Henry # (Auto) 0.4, Eos # (Auto) 0.1, Baso # (Auto) 0.0, Total Counted 100, Neutrophils % (Manual) 84 H, Lymphocytes % (Manual) 13, Monocytes % (Manual) 3, Platelet Estimate Normal, Macrocytosis 1+ 02/01/23 06:43: Sodium 134 L, Potassium 4.2, Chloride 96 L, Carbon Dioxide 27, Anion Gap 15.2 H, BUN 17 D, Creatinine 0.70, Estimated Creat Clear 64, Estimated GFR 83, Est GFR ( Amer) 101, Glucose 241 H, Calcium 8.6 I & O for Labs for Last 24 Hours: Intake & Output 01/29/23 01/30/23 01/31/23 02/01/23 11:59 11:59 11:59 11:59 Intake Total 0 / 0 120 / 120 349 / 349 Output Total 650 / 650 1850 / 1850 1100 / 1100 Balance -650 / -650 -1730 / -1730 -751 / -751 Weight 164 lb 6.4 oz 158 lb 4 oz 163 lb 9 oz Comment:: Alert, oriented, neurologically intact. Pleasant and talkative. Lungs have good air movement, heart rate regular. Extremities warm and well-perfused. Much less pain with movement. Assessment and Plan *Assessment and plan (1) Closed left hip fracture: Status: Acute Category: Medical Code(s): S72.002A - Fracture of unspecified part of neck of left femur, initial encounter for closed fracture (2) Heart failure with preserved ejection fraction: Status: Acute Category: Medical Code(s): I50.30 - Unspecified diastolic (congestive) heart failure (3) Pulmonary HTN: Status: Acute Category: Me
--- NOTE | 2023-02-01 10:30 | HMH.OTEV ---
OT Inpatient Evaluation Rehab OT IP Evaluation Start: 02/01/23 07:12 Freq: ONCE Status: Active Protocol: Document 02/01/23 10:23 TRISHA (Rec: 02/01/23 10:29 LUZ MARINA [id number]) Rehab OT IP Assessment Subjective History Patient is identified preoperatively. Left hip marked with a yes and my initials. Transported to operative suite placed supine on the radiolucent fracture table. Left hip was prepped and draped in normal sterile fashion. Once prepped and draped final operative timeout performed to identify proper patient procedure and extremity. Everyone involved the case agreed. No counter indication began. She did receive preoperative antibiotics. Marking pen was used to fahad tip of the greater trochanter and a 2 fingerbreadth incision 2 fingerbreadths above the greater trochanter. Skin F was used incise the skin and the IT band. Direct palpation on the greater trochanter was felt and the guide tip wire was placed. The wire was confirmed to be in good position on the AP and lateral views on the C arm. Opening reamer for the trochanter was utilized then. At that point ball-tipped guidewire was placed down into the femoral canal and confirmed on AP and lateral views. Size 10 TFN Synthes cephalomedullary nail was selected and placed over the guidewire. X-ray was used for proper depth of the sasha. Once impacted to the proper depth the triple cannula was used to place the guidewire into the femoral neck and head . This was visualized on both the AP and lateral views.
--- NOTE | 2023-02-01 10:31 | HMH.PTEV ---
Physical Therapy Evaluation Rehab PT IP Evaluation Start: 01/31/23 17:32 Freq: ONCE Status: Active Protocol: Document 02/01/23 10:24 PHORNE (Rec: 02/01/23 10:29 PHORNE [id number]) Subjective/History History History 67 yowf adm to [facility] after ground level fall with resulting L hip fx, now S/P L femur IMN. She reports she lives with her son, 1 step to enter the home,. and she is independent with all mobility without AD at baseline. Subjective Subjective Pt c/o pain in the L LE as expected post surgery. Currently on FM O2 due to difficulty maintaining O2 saturations > 90%. Rehab PT IP Eval Objective Appearance Patient Behavior Appropriate Patient Orientation Person,Place,Time Difficulty following instructions none Speech Pattern Clear Ambulation Patient Able to Ambulate Yes Ambulation Observation IP General Gait Pattern Observation Antalgic Gait,Shuffling Step, Decrease Weight Bear (L), Decrease Stride Lngth (R), Decrease Stride Lngth (L) Ambulation Distance (feet) 3 Ambulation Assistive Device Rolling Walker Ambulation Ability Minimal x 2 (25% assist) Balance Ability to Arise Able, uses arms to help Sitting Balance Steady, safe Standing Balance Steady, wide stance Dynamic Sitting Balance Ability Fair Dynamic Standing Balance Ability Fair Transfers Bed Transfer Ability Minimal x 2 (25% assist) Chair Transfer Ability Minimal x 2 (25% assist) Sit to Stand Bed Transfer Ability Minimal x 2 (25% assist) Sit to Stand Chair Transfer Ability Minimal x 2 (25% assist) ROM All Extremities PT ROM Status WFL MMT All Extremities PT MMT WFL Abnormal MMT Grade except L LE grossly 2/5 at hip Rehab PT IP prob,goals,plan Problems Date of Evaluation: 02/01/23 PT IP Problems Bed Mobility,Transfers,Gait Rehab Potential Rehab Potential Good Equipment Needs Assistive Devices Rolling / Wheeled Walker Plan PT Intervention Plan Bed Mobility,Transfers,Gait, Therapeutic Exercise PT Plan Frequency BID Duration LOS Discharge Goals Bed Transfer Ability Minimal x 1 (25% assist) Sit to Stand Chair Transfer Ability Minimal x 1 (25% assist) Ambu
--- NOTE | 2023-02-01 10:36 | SUR.OPER ---
LATE ENTRY 01/31/23- pt transported to the OR on 6L o2 w/simple mask. pt transported to pacu on 6L o2 w/ simple mask
--- NOTE | 2023-02-01 11:31 | PC.NURSE ---
tech note; notified nurse of low O2 saturation for 0800 vital signs. K Shant, SRNA
--- NOTE | 2023-02-01 12:26 | PC.NURSE ---
Addendum entered by Merary Castelan RN 02/01/23 19:19: CATHETER WAS LEFT IN DUE TO DIURESING WITH IV BUMEX Original Note: PT IS SITTING UP IN THE CHAIR VISITING WITH FAMILY. O2 SATURATION HAS MAINTAINED 89-93% ON 3 L NC SINCE PT HAS BEEN UP IN THE CHAIR. USING INCENTIVE SPIROMETER. ALERT AND ORIENTED X3. LUNG SOUNDS DIMINISHED WITH SCATTERED WHEEZES. ABDOMEN SOFT/NON TENDER WITH ACTIVE BOWEL SOUNDS. DRESSING TO THE LEFT HIP C/D/I. WILL CONTINUE TO MONITOR.
[2023-02-02 04:00] VITALS: BP 116/68; PULSE 86; RESP 18; TEMP 37.1; O2SAT 90; BMI 29.9
[2023-02-02 06:30] VITALS: PULSE 83; PULSE 85; O2SAT 89
[2023-02-02 08:00] VITALS: BP 130/66; PULSE 89; RESP 20; TEMP 36.7; O2SAT 89
[2023-02-02 09:18] LABS: Chloride 96 mmol/L (98-107)
--- NOTE | 2023-02-02 09:18 | PC.NURSE ---
COURTESY TECH NOTE; ROUNDED ON PT 0800, PT DENIED NEED FOR DRINK, AND ASSISTANCE WITH RESTROOM. PT ASSISTED X2 FROM BED TO CHAIR. CALL LIGHT WITHIN REACH, NO FURTHER REQUESTS AT THIS TIME. Shamir GARCIA, SRNA
[2023-02-02 09:19] LABS: Potassium 3.4 mmoL/L (3.5-5.1); Sodium 135 mmol/L (136-145)
[2023-02-02 09:21] LABS: Blood Urea Nitrogen 24 mg/dl (7-17); Creatinine Clearance Estimated 64 mL/min (50-200); Estimated Glomerular Filt Rate 55 ml/min (>60); GFR (African American) 67 ML/MIN (>60)
--- NOTE | 2023-02-02 09:21 | EXP.CARD.PN ---
Subjective Subjective Date: 02/02/23 Time: 09:21 Principal diagnosis: Left hip fracture Interval history: 67-year-old white female in bed eating breakfast in no acute distress. Complains of pain in her buttocks from being in the bed. She relates ambulating to the bathroom yesterday with assistance without much difficulty. Breathing seems to be improved as well as her mentation. Trial of being off of oxygen for 20-30 minutes resulted in a drop in oxygen saturation to around 80% on room air. Exam Data for Last 24 hours Vital signs and Labs for Last 24 Hours: Temp Pulse Resp BP Pulse Ox FiO2 98.1 F 89 20 130/66 89 L 50 02/02/23 08:00 02/02/23 08:00 02/02/23 08:00 02/02/23 08:00 02/02/23 08:00 02/01/23 06:15 I & O for Last 24 hours: Intake & Output 01/30/23 01/31/23 02/01/23 02/02/23 11:59 11:59 11:59 11:59 Intake Total 0 / 0 120 / 120 349 / 349 1080 / 1080 Output Total 650 / 650 1850 / 1850 1750 / 1750 1350 / 1350 Balance -650 / -650 -1730 / -1730 -1401 / -1401 -270 / -270 Weight 164 lb 6.4 oz 158 lb 4 oz 163 lb 9 oz 162 lb 12.8 oz Constitutional Constitutional: no acute distress *Routine Respiratory Exam Respiratory: Present rhonchi and wheezes *Routine Cardiovascular Exam Cardiovascular: Present RRR *Routine Extremities Exam Extremities: Absent cyanosis, clubbing or edema Progress Note: A&P Assessment and plan (1) Closed left hip fracture: Status: Acute (2) Heart failure with preserved ejection fraction: Status: Acute (3) Pulmonary HTN: Status: Acute (4) CAD (coronary artery disease): Problem details: APR 2022-Severe ostial mid left main disease as described Successful stenting of the ostial proximal mid distal left main artery reducing the stenosis to less than 10% giving excellent angiograph results Preserved ejection fraction Normal left ventricular end-diastolic pressure Persistent stenosis in a large posterior lateral branch which is best managed medically Status: Chronic (5) Intertrochanteric fracture of left hip: Problem details: Status post cephalomedullary nailing Status: Acute Assessment and Plan Assessment and Plan for All Diagnoses:: 1.? Fall with left hip fracture, defer to Ortho. Status post surgery, 01/31/2023 2.? Coronary artery disease with most recent coronary stenting in April 2022, clinically stable.? No plans for invasive testing. Continue aspirin 81 mg daily Restart Plavix 75 mg today 3.? Hypertension controlled on atenolol 4.? Hyperlipidemia continue atorvastatin therapy 5.? COPD/pulmonary hypertension Continues to require oxygen therapy at this time 6.? Chronic heart failure with preserved ejection fraction Continue diuretic therapy 7.? Continued tobacco use cessation recommended 8.? Diabetes mellitus type [address] [place] 9. Chest x-ray with infiltrates possible pneumonia versus fluid overload. Improved on today's chest x-ray 4 L net negative urine output at this point with elevated BUN. Plans are for patient to be sent to rehab. She would likely need oxygen transiently while there. Medication recommendations: Aspirin 81 mg daily Atenolol 25 mg daily Atorvastatin 20 mg daily Bumex 1 mg twice daily Plavix 75 mg daily Spironolactone 50 mg twice daily Follow-up in our office in 1 to 2 weeks
[2023-02-02 09:22] LABS: Anion Gap 17.4 mEq/L (5-15); Calcium 8.7 mg/dl (8.4-10.2); Carbon Dioxide 25 mmol/L (22.0-30.0); Glucose 370 mg/dl (74-100); Magnesium 1.9 mg/dl (1.6-2.3)
--- NOTE | 2023-02-02 09:22 | XR_ITS ---
FINAL REPORT CLINICAL HISTORY: Hypoxia, COPD, pneumonia COMPARISON: 01/31/2023 FINDINGS: Two views of the chest were obtained. The heart size and pulmonary vascularity are within normal limits. The mediastinum is normal. There has been partial improvement in bibasilar opacities consistent with improving atelectasis or pneumonia. There is no pneumothorax. The bony thorax is intact. IMPRESSION: Improving bibasilar atelectasis or pneumonia. Reviewed, Interpreted and Dictated by Thanh Jones III, MD Transcribed by Domi Carranza Authenticated and [facility]
[2023-02-02 09:31] LABS: NT Pro Brain Natriuretic Pep. 2400 pg/mL (0-125)
--- NOTE | 2023-02-02 09:34 | DIET.NUTRFU ---
saw patient today, she had good intake with breakfast. Consumed biscuit/gravy with oatmeal. She has not been drinking ensure, indicated the importance for protein s/p hip sx and encouraged her to consume 1-2/daily.Reviewed chart and no BM since admit on 01/29, she is on pain meds which can cause constipation. She did indicate some gas this morning, nursing verified. Nursing also noted active bowel sounds last night. Goes daily at home. No meds in place. Nursing to report to provider. Her discharge plan is rehab
--- NOTE | 2023-02-02 11:25 | EXP.ANES.II ---
[facility] Anesthesia Record Part II Anesthesia Record Part II Discharge Time: 17:05 (01/31/23) Destination: Medical Surgical Department PACU nurse assessment reviewed?: Yes Patient Condition:: Good Anesthesia Complications:: None Swallowing reflex intact?: Yes Cyanosis?: No Blood Pressure: 145/71 Pulse Rate: 102 Temperature: 98.8 F Mental Status: Alert & Oriented Pain level:: 0 Nausea and/or vomitting:: None Intake, IV Amount: 0
[2023-02-02 11:26] VITALS: BP 145/71; PULSE 102; TEMP 37.1
[2023-02-02 12:00] VITALS: BP 100/69; PULSE 82; RESP 20; TEMP 36.6; O2SAT 91
--- NOTE | 2023-02-02 13:26 | EXP.DC.SUM ---
General Admission date:: 01/29/23 Discharge date: 02/02/23 HPI HPI HPI: 67-year-old white female with recent admission for COVID-19 pneumonia, heart failure exacerbation, recently graduated from home health and home O2 therapy as she is improved from her COVID-19 pneumonia. Also underwent cardiac catheterization with stent placement in April 2022 Was at her daughter's home today and was going up a step and tripped on her flip-flop and fell down. Could not bear weight. Came to the ER. Diagnosed with left hip fracture. Admitted for orthopedic consultation and pain relief. Hospital Course Hospital Course Hospital Course: Patient was admitted. Blood thinners-specifically Plavix-were held, patient was given Lovenox for DVT prophylaxis. Surgery took her to the OR after 36 hours off Plavix and performed ORIF of the left hip. Please see surgical notes for details. Procedure went well. Pain control was much improved. She was able to be transitioned over to p.o. Percocet with good pain relief except during periods of physical therapy. She did have some chronically low oxygen saturations, diuretics were restarted and this helped. Cardiology continue to follow her during the hospitalization, felt that her hypoxia was from her ongoing pulmonary hypertension/COPD issues and her CHF was well balanced. They continued her diuretics and DAPT therapy. We continued her oxygen therapy and nebs and she did well. Today she is doing well, able to sit up in a chair, able to transition from chair to bed. Plan to be to discontinue Thomas catheter and transfer to rehab facility today. Please note she will need the following orders 1. Meds as noted. I [facility]. Please give her a couple of these pain pills 30 minutes before PT sessions. 2. She will need 2 to 4 L nasal cannula oxygen as needed to keep sats over 88%. 3. She will need DuoNebs every 4 as needed for wheezing or tightness or shortness of air. 4. She will need a CBC and BMP on 02/04/2023. We will follow her there on [facility]. Please note she will need cardiology appointment in 1 to 2 weeks and orthopedic appointment in 1 week as scheduled. Exam Data for Last 24 hours Vital signs and Labs for Last 24 Hours: Temp Pulse Resp BP Pulse Ox FiO2 98.8 F 102 H 20 145/71 H 89 L 50 02/02/23 11:26 02/02/23 11:26 02/02/23 08:00 02/02/23 11:26 02/02/23 08:00 02/01/23 06:15 Laboratory Results - last 24 hr 02/02/23 08:55: Sodium 135 L, Potassium 3.4 L, Chloride 96 L, Carbon Dioxide 25, Anion Gap 17.4 H, BUN 24 H D, Creatinine 1.00 D, Estimated Creat Clear 64, Estimated GFR 55 L, Est GFR ( Amer) 67 D, Glucose 370 H, Calcium 8.7, Magnesium 1.9, NT-Pro-B Natriuret Pep 2400 H I & O for Last 24 hours: Intake & Output 01/31/23 02/01/23 02/02/23 02/03/23 11:59 11:59 11:59 11:59 Intake Total 120 / 120 349 / 349 1080 / 1080 50 / 50 Output Total 1850 / 1850 1750 / 1750 1350 / 1350 Balance -1730 / -1730 -1401 / -1401 -270 / -270 50 / 50 Weight 158 lb 4 oz 163 lb 9 oz 162 lb 12.8 oz Constitutional Constitutional: no acute distress *Routine HEENT Exam Head: Present normocephalic Eye: Present EOMI and PERRL ENT: Present mucous membranes moist *Routine Neck Exam Neck: Present supple; Absent lymphadenopathy *Routine Respiratory Exam Comments: Scattered rhonchi bilaterally but excellent air movement. *Routine Cardiovascular Exam Cardiovascular: Present RRR *Routine Abdominal Exam Abdominal: Present soft and normoactive bowel sounds; Absent tenderness *Routine Extremities Exam Extremities: Absent cyanosis, clubbing or edema Comments: Pain with movement of the left hip, no distal edema. Surgical site on left hip looks good. *Routine Skin Exam Skin: Present warm; Absent rash *Routine Neurological Exam Neurological: Present alert and oriented X3 Results Data Completed an
[2023-02-02 14:24] VITALS: PULSE 78; PULSE 80
--- NOTE | 2023-02-05 14:17 | CARE MANAGER ---
Contacted patient related to hospital discharge. She states she is doing better. She is aware of her follow up appointments. YOAV Arizmendi
== END 2023-02-02 15:26 | DRG 480 ==
LOC: ER 16:04 → 2ND 16:07
PROVIDERS: Orthopaedic Surgery; Physician Assistant; Admitting Provider Internal Medicine Adolescent Medicine; Emergency Provider Student in an Organized Health Care Education/Training Program; PCP Internal Medicine Adolescent Medicine; Visit Provider Internal Medicine Adolescent Medicine
PROC: 0QH736Z Insertion of Intramedullary Internal Fixation Device into Left Upper Femur, Percutaneous Approach (ICD-10-PCS; principal; 2023-01-31 14:00)
DX: S72.142A Displaced intertrochanteric fracture of left femur, initial encounter for closed fracture (principal); I50.33 Acute on chronic diastolic (congestive) heart failure; I25.10 Atherosclerotic heart disease of native coronary artery without angina pectoris; J44.9 Chronic obstructive pulmonary disease, unspecified; E78.5 Hyperlipidemia, unspecified; E11.51 Type 2 diabetes mellitus with diabetic peripheral angiopathy without gangrene; M10.9 Gout, unspecified; W01.0XXA Fall on same level from slipping, tripping and stumbling without subsequent striking against object, initial encounter; Z86.73 Personal history of transient ischemic attack (TIA), and cerebral infarction without residual deficits; I27.20 Pulmonary hypertension, unspecified; Z86.16 Personal history of COVID-19; I11.0 Hypertensive heart disease with heart failure
CPT/HCPCS: 27506; 36415; 71045; 71046; 73502; 76000; 80048; 80053; 81001; 82803; 82962; 83735; 83880; 84550; 85007; 85025; 85610; 85730; 87636; 93005; 94640; 94760; 94761; 97110; 97116; 97162; 97165; 97530; 99285; C1713; C1769; C1776; C9803; J2405; U0003; U0005

== ENCOUNTER → 2023-02-13 14:14 | Outpatient (CLI) | payer MEDICARE, SELFPAY ==
--- NOTE | 2023-02-13 14:19 | XR_ITS ---
FINAL REPORT CLINICAL HISTORY: nailing FINDINGS: 2 views of the left hip were obtained. There is an intramedullary sasha with compression screws in the proximal left femur. The hardware appears intact. Overlying skin florecita are present. IMPRESSION: Postoperative change of the left proximal femur with intact hardware. Reviewed, Interpreted and Dictated by Ollie Carias MD Transcribed by Dejan Bob Authenticated and [facility]
== END ==
LOC: RAD 14:16
PROVIDERS: PCP Internal Medicine Adolescent Medicine; Visit Provider Orthopaedic Surgery
DX: S72.142A Displaced intertrochanteric fracture of left femur, initial encounter for closed fracture (principal); M25.552 Pain in left hip
CPT/HCPCS: 73502

== ENCOUNTER 2023-05-14 12:59 | Outpatient (CLI) | payer MEDICARE, SELFPAY ==
[2023-05-14 13:10] LABS: Microscopic, Urine URINE MICROSCOPIC (MICROSCOPIC)
[2023-05-14 13:23] LABS: Basophils % 0.2 % (0.1-2.0); Eosinophils # 0.1 K/mm3 (0.0-0.4); Eosinophils % 0.6 % (0.1-12.0); Hematocrit 40.8 % (37.0-47.0); Hemoglobin 13.2 g/dL (12.2-16.2); Lymphocytes # 1.4 K/mm3 (0.7-4.5); Lymphocytes % 8.4 % (10-50); Mean Corpuscular HGB Conc 32.3 g/dL (31.8-35.4); Mean Corpuscular Hemoglobin 32.5 pg (27.0-31.2); Mean Corpuscular Volume 100.6 fl (81-99); Mean Platelet Volume 8.8 fl (7.4-10.4); Monocytes # 0.9 K/mm3 (0.1-1.0); Monocytes % 5.6 % (1.7-9.3); Neutrophils % 85.2 % (37.0-80.0); Platelet Count 235 K/mm3 (142-424); Red Blood Count 4.06 M/mm3 (4.20-5.40); Red Cell Distribution Width 15.5 % (11.5-17.5); White Blood Count 16.4 K/mm3 (4.8-10.8)
[2023-05-14 13:28] LABS: MANUAL DIFFERENTIAL MANUAL DIFFERENTIAL (MANUAL DIFF)
[2023-05-14 13:31] LABS: Appearance,Urine SL CLOUDY (Clear); Bilirubin,Urine Negative (Negative); Blood, Urine 1+ (Negative); Color,Urine YELLOW (Yellow); Glucose,Urine (UA) Negative (Negative); Ketones,Urine Negative (Negative); Leukocyte Esterase,Urine TRACE (Negative); Nitrate,Urine POSITIVE (Negative); Protein,Urine 1+ (Negative); Specific Gravity, Urine 1.025 (1.005-1.030); Urobilinogen,Urine 0.2 EU/dl (0.2)
[2023-05-14 13:35] VITALS: BP 114/64; PULSE 100; RESP 21; TEMP 37.4; O2SAT 92
[2023-05-14 13:45] LABS: Bacteria,Urine 3+ /lpf; Yeast,Urine 1+ /lpf
[2023-05-14 14:00] LABS: Anion Gap 14.2 mEq/L (5-15); Blood Urea Nitrogen 16 mg/dl (7-17); Calcium 9.5 mg/dl (8.4-10.2); Carbon Dioxide 26 mmol/L (22.0-30.0); Chloride 102 mmol/L (98-107); Estimated Glomerular Filt Rate 55 ml/min (>60); GFR (African American) 67 ML/MIN (>60); Glucose 165 mg/dl (74-100); Potassium 4.2 mmoL/L (3.5-5.1); Sodium 138 mmol/L (136-145)
[2023-05-14 14:41] LABS: Anisocytosis 1+; Lymphocytes % 13 % (10-50); Macrocytosis 1+; Monocytes % 6 % (2-9); Neutrophils % 81 % (42-76); Platelet Estimate Normal; Total Cells Counted 100
== END 2023-05-14 13:35 | disposition home or self-care (01) ==
PROVIDERS: PCP Nurse Practitioner Family; Visit Provider Nurse Practitioner Family
DX: N39.0 Urinary tract infection, site not specified (principal)
CPT/HCPCS: 36415; 80048; 81001; 85007; 85025; 87086; 87088; 87186; 96372; J0696

== ENCOUNTER 2023-05-17 13:51 | Observation (INO) | payer MEDICARE, SELFPAY ==
[2023-05-17] VITALS (10 sets, daily range): BP systolic 95–136; BP diastolic 52–88; PULSE 63–102; RESP 18–28; TEMP 36.9–38.7; O2SAT 93–99; BMI 28.3; BMI 28.4
[2023-05-17 14:37] LABS: Basophils % 0.2 % (0.1-2.0); Eosinophils % 0.1 % (0.1-12.0); Hematocrit 40.2 % (37.0-47.0); Lymphocytes % 8.2 % (10-50); Mean Corpuscular HGB Conc 32.5 g/dL (31.8-35.4); Mean Corpuscular Hemoglobin 32.8 pg (27.0-31.2); Mean Corpuscular Volume 101.2 fl (81-99); Monocytes # 0.9 K/mm3 (0.1-1.0); Monocytes % 7.4 % (1.7-9.3); Neutrophils # 10.2 K/mm3 (1.8-7.8); Platelet Count 279 K/mm3 (142-424); Red Blood Count 3.97 M/mm3 (4.20-5.40); Red Cell Distribution Width 15.3 % (11.5-17.5); White Blood Count 12.2 K/mm3 (4.8-10.8)
[2023-05-17 14:47] LABS: Alanine Aminotransferase 29 U/L (12-78); Albumin/Globulin Ratio 1.1 (1.1-1.8); Alkaline Phosphatase 135 U/L (38-126); Aspartate Amino Transferase 24 U/L (14-36); Bilirubin,Total 0.6 mg/dl (0.2-1.3); Blood Urea Nitrogen 15 mg/dl (7-17); Calcium 9.6 mg/dl (8.4-10.2); Carbon Dioxide 26 mmol/L (22.0-30.0); Chloride 101 mmol/L (98-107); Creatinine Clearance Estimated 59 mL/min (50-200); Estimated Glomerular Filt Rate 55 ml/min (>60); GFR (African American) 67 ML/MIN (>60); Globulin 3.6 g/dL (1.3-3.2); Glucose 177 mg/dl (74-100); Sodium 139 mmol/L (136-145); Total Protein,Serum 7.6 g/dl (6.3-8.2)
--- NOTE | 2023-05-17 15:09 | CT_ITS ---
FINAL REPORT TECHNIQUE: Axial CT images were performed through the head. Coronal reformatted images were submitted. This study was performed with techniques to keep radiation doses as low as reasonably achievable (ALARA). Individualized dose reduction techniques using automated exposure control or adjustment of mA and/or kV according to the patient's size were employed. CLINICAL HISTORY: AMS FINDINGS: There is mild atrophy. The ventricles are normal in size. There is no evidence of hemorrhage. There is no mass or edema identified. There is no abnormal extra-axial fluid seen. The sinuses are well aerated. IMPRESSION: No acute intracranial process. Reviewed, Interpreted and Dictated by Ollie Carias MD Transcribed by Imani Cortez Authenticated and . [facility]
--- NOTE | 2023-05-17 15:09 | XR_ITS ---
FINAL REPORT CLINICAL HISTORY: Shortness of breath COMPARISON: 02/02/2023 FINDINGS: The heart size is normal. The mediastinum is normal. There is new airspace opacity in the left upper lung, probably due to acute pneumonia. The right lung is clear. There are no pleural effusions. There is no pneumothorax. There is no osseous abnormality. IMPRESSION: Probable acute left upper lung pneumonia. Follow-up recommended. Reviewed, Interpreted and Dictated by Ollie Carias MD Transcribed by Radha Burrell Authenticated and [facility]
--- NOTE | 2023-05-17 15:10 | HMH.EDGENADL ---
Discharge Plan Disposition Patient Disposition: Admitted Clinical Impressions Clinical Impression: CAP (community acquired pneumonia), Severe sepsis, Acute UTI Discharge ED Provider: Chuck Moeller General Adult HPI <Garland Simental MD - Last Filed: 05/17/23 16:03> General Chief complaint: Altered Mental Status Stated complaint: AMS Time Seen by Provider: 05/17/23 15:03 History of Present Illness HPI narrative: Patient is a 67-year-old female here with altered mental status. She is accompanied by her daughter is a primary historian patient's mental status is altered and history is limited secondary to this from the patient's perspective. She started getting altered on Sunday went to Dr. Ortiz's office was found to have a urinary tract infection and was started on cefdinir. Urine culture returned which showed E. coli that was pansensitive and she continued cefdinir. She had a few days of improvement but is significantly worsened as of today. Her level of alertness is significant decreased and she is altered. She has not had any other symptoms including cough etc. No injuries that were aware of. She is not on any anticoagulants that were aware of. She is on aspirin. Related Data Home Medications Medication Instructions Recorded Confirmed atorvastatin 20 mg tablet 20 mg PO HS Cholesterol 90 days 10/26/17 05/17/23 ##90 cetirizine 10 mg tablet 10 mg PO DAILY Allergy symptoms 30 10/26/17 05/17/23 days ##30 clopidogrel 75 mg tablet 75 mg PO DAILY platelet inhibitor 10/26/17 05/17/23 90 days ##90 metformin 1,000 mg tablet 1,000 mg PO BIDWMEAL Diabetes 90 10/26/17 05/17/23 days ##180 aspirin 81 mg tablet,delayed 81 mg PO DAILY Heart health 05/06/18 05/17/23 release atenolol 25 mg tablet 25 mg PO DAILY Heart rate/Blood 06/03/20 05/17/23 pressure escitalopram oxalate 5 mg tablet 5 mg PO DAILY mood 06/03/20 05/17/23 ipratropium 0.5 mg-albuterol 3 mg 3 ml inhalation QIDP PRN Shortness 05/03/22 05/17/23 (2.5 mg base)/3 mL nebulization Of Breath soln allopurinol 100 mg tablet 200 mg PO DAILY Gout 12/27/22 05/17/23 fluticasone fur. 100 mcg-umeclid 1 inh inhalation DAILY COPD 01/17/23 05/17/23 62.5 mcg-vilant 25 mcg inhalat.powder (Trelegy Ellipta) azithromycin 250 mg tablet 250 mg PO MOWEFR COPD 01/29/23 05/17/23 magnesium oxide 400 mg (241.3 mg 400 mg PO DAILY Supplement 01/30/23 05/17/23 magnesium) tablet bumetanide 1 mg tablet 1 mg PO DAILY Fluid 05/17/23 05/17/23 colchicine (gout) 0.6 mg tablet 0.6 mg PO DAILYP PRN gout 05/17/23 05/17/23 meloxicam 15 mg tablet 15 mg PO DAILY Pain 05/17/23 05/17/23 nicotine 21 mg/24 hr daily 1 patch transdermal DAILY smoking 05/17/23 05/17/23 transdermal patch (Nicoderm CQ) cessation Previous Rx's Medication Instructions Recorded gabapentin 300 mg capsule 600 mg PO BID Nerve pain 90 days 02/02/23 #360 caps oxycodone-acetaminophen 5 mg-325 1 - 2 tab PO Q6H PRN pain #60 tabs 02/02/23 mg tablet (Percocet) spironolactone 50 mg tablet 50 mg PO BID Fluid #180 tabs 02/15/23 Allergies Allergy/AdvReac Type Severity Reaction Status Date / Time Sulfa (Sulfonamide Allergy Unknown BLISTERING Verified 02/13/23 14:42 Antibiotics) OF THROAT levofloxacin [From Levaquin] Allergy Verified 02/13/23 14:42 <Chuck Moeller MD - Last Filed: 05/18/23 14:46> History of Present Illness HPI narrative: Patient is a 67-year-old female here with altered mental status. She is accompanied by her daughter is a primary historian patient's mental status is altered and history is limited secondary to this from the patient's perspective. She started getting altered on Sunday went to Dr. Montana's office was found to have a urinary tract infection and was started on cefdinir. Urine culture returned which showed E. coli that was pansensitive and she continued cefdinir. She had a few days of improvement but is significantly worsened as of today. Her level of alertness is significa
[2023-05-17 15:13] LABS: Microscopic, Urine URINE MICROSCOPIC (MICROSCOPIC)
[2023-05-17 15:19] LABS: Appearance,Urine Clear (Clear); Color,Urine Yellow (Yellow); Glucose,Urine (UA) Trace (Negative); Protein,Urine 1+ (Negative)
[2023-05-17 15:20] LABS: Bilirubin,Urine Negative (Negative); Blood, Urine Negative (Negative); Ketones,Urine Trace (Negative); Leukocyte Esterase,Urine Negative (Negative); Nitrate,Urine Negative (Negative); Urobilinogen,Urine 0.2 EU/dl (0.2)
[2023-05-17 15:41] LABS: Squamous Epithelial Cell,Urine Occasional #/hpf (0-5); WBC,Urine Occasional #/hpf (0-3)
[2023-05-17 15:42] LABS: Yeast,Urine 3+ /lpf
--- NOTE | 2023-05-17 16:02 | EXP.HP ---
History of Present Illness *Admission Date: 05/17/23 *Reason for visit:: altered mental status *History of present illness: Carolina Rivers is a 67 year old female with a past medical history of GERD, CVA, CAD s/p stents, HTN, CHF, T2dm, hld, asthma, copd (on supplemental oxygen only at night), gout, lung cancer s/p radiation, recurrent pneumonia and cigarette nicotine dependence. She developed confusion on Sunday and saw her PCP who diagnosed her with a UTI, gave her a shot of Rocephin and prescribed her a course of cefdinir. The patient's mental status was improving up until earlier this morning when she was much more lethargic than her usual self; she also began to complain of shortness of breath. Initial vitals BP 136/68 - P 102 - RR 18 - T 101.7 F - Spo2 93% RA Initial workup: CBC with 12.2 WBCs, CMP wth Cr 1.0 UA with occasional wbcs Blood cultures were collected Head CT - no acute intracranial process CXR with probable acute left upper lung pneumonia Urine culture 05/14 >100k e. coli [facility]pic[facility] Disclaimer: The information contained in this section may have been updated after the patient was seen, as this information can be updated by other users. Medical History Acute respiratory failure with hypoxia CAD (coronary artery disease) APR 2022-Severe ostial mid left main disease as described Successful stenting of the ostial proximal mid distal left main artery reducing the stenosis to less than 10% giving excellent angiograph results Preserved ejection fraction Normal left ventricular end-diastolic pressure Persistent stenosis in a large posterior lateral branch which is best managed medically COPD (chronic obstructive pulmonary disease) Diabetes mellitus Diastolic dysfunction ACUÑA (dyspnea on exertion) History of placement of stent in LAD coronary artery HLD (hyperlipidemia) HTN (hypertension) PAD (peripheral artery disease) Pneumonia due to COVID-19 virus Subclavian artery stenosis, left Tobacco use Surgical History Hx of right coronary artery stent placement Family History Other No significant family history Social History (Updated 05/17/23 @ 17:43 by Delia Avila RN) Smoking Status: Current every day smoker tobacco type: cigarettes packs per day: 1 second hand exposure: No alcohol intake: never substance use type: denies use current occupational status: retired Travel in the last 8 weeks: None household members: none housing: house current occupational exposures/hazards: No caffeine: Yes Review of Systems Review of Systems Review of systems:: pertinent systems reviewed and negative unless documented below Meds Home Medications and Allergies Home Medications Medication Instructions Recorded Confirmed Type atorvastatin 20 mg tablet 20 mg PO HS Cholesterol 90 days 10/26/17 05/17/23 History ##90 cetirizine 10 mg tablet 10 mg PO DAILY Allergy symptoms 30 10/26/17 05/17/23 History days ##30 clopidogrel 75 mg tablet 75 mg PO DAILY platelet inhibitor 10/26/17 05/17/23 History 90 days ##90 metformin 1,000 mg tablet 1,000 mg PO BIDWMEAL Diabetes 90 10/26/17 05/17/23 History days ##180 aspirin 81 mg tablet,delayed 81 mg PO DAILY Heart health 05/06/18 05/17/23 History release atenolol 25 mg tablet 25 mg PO DAILY Heart rate/Blood 06/03/20 05/17/23 History pressure escitalopram oxalate 5 mg tablet 5 mg PO DAILY mood 06/03/20 05/17/23 History ipratropium 0.5 mg-albuterol 3 mg 3 ml inhalation QIDP PRN Shortness 05/03/22 05/17/23 History (2.5 mg base)/3 mL nebulization Of Breath soln allopurinol 100 mg tablet 200 mg PO DAILY Gout 12/27/22 05/17/23 History fluticasone fur. 100 mcg-umeclid 1 inh inhalation DAILY COPD 01/17/23 05/17/23 History 62.5 mcg-vilant 25 mcg inhalat.powder (Trelegy Ellipta) azithromycin 2
--- NOTE | 2023-05-17 16:24 | EXP.PHA.CONS ---
Pharmacy Consult Date: 05/17/23 Time: 16:24 Referring provider: DR. GUNDERSON Reason for Consult:: VANCOMYCIN Allergies Allergy/AdvReac Type Severity Reaction Status Date / Time Sulfa (Sulfonamide Allergy Unknown BLISTERING Verified 02/13/23 14:42 Antibiotics) OF THROAT levofloxacin [From Levaquin] Allergy Verified 02/13/23 14:42 Home Medications Medication Instructions Recorded Confirmed Type atorvastatin 20 mg tablet 20 mg PO HS Cholesterol 90 days 10/26/17 02/13/23 History ##90 cetirizine 10 mg tablet 10 mg PO DAILY Allergy symptoms 30 10/26/17 02/13/23 History days ##30 clopidogrel 75 mg tablet 75 mg PO DAILY platelet inhibitor 10/26/17 02/13/23 History 90 days ##90 metformin 1,000 mg tablet 1,000 mg PO BIDWMEAL Diabetes 90 10/26/17 02/13/23 History days ##180 aspirin 81 mg tablet,delayed 81 mg PO DAILY Heart health 05/06/18 02/13/23 History release atenolol 25 mg tablet 25 mg PO DAILY Heart rate 06/03/20 02/13/23 History escitalopram oxalate 5 mg tablet 5 mg PO DAILY mood 06/03/20 02/13/23 History ipratropium 0.5 mg-albuterol 3 mg 3 ml inhalation QIDP PRN Shortness 05/03/22 02/13/23 History (2.5 mg base)/3 mL nebulization Of Breath soln allopurinol 100 mg tablet 200 mg PO DAILY Gout 12/27/22 02/13/23 History bumetanide 1 mg tablet 1 mg PO BIDL #60 tabs 01/03/23 02/13/23 Rx fluticasone fur. 100 mcg-umeclid 1 inh inhalation DAILY COPD 01/17/23 02/13/23 History 62.5 mcg-vilant 25 mcg inhalat.powder (Trelegy Ellipta) azithromycin 250 mg tablet 250 mg PO MOWEFR COPD 01/29/23 02/13/23 History magnesium oxide 400 mg (241.3 mg 400 mg PO DAILY Supplement 01/30/23 02/13/23 History magnesium) tablet gabapentin 300 mg capsule 600 mg PO BID Nerve pain 90 days 02/02/23 02/13/23 Rx #360 caps nicotine 21 mg/24 hr daily 1 patch transdermal DAILY #28 ea 02/02/23 02/13/23 Rx transdermal patch (Nicoderm CQ) oxycodone-acetaminophen 5 mg-325 1 - 2 tab PO Q6H PRN pain #60 tabs 02/02/23 02/13/23 Rx mg tablet (Percocet) spironolactone 50 mg tablet 50 mg PO BID Fluid #180 tabs 02/15/23 Rx New Prescriptions to Start Prescriptions: Height: 1.55 m Weight: 68.039 kg Laboratory Results:: Laboratory Results - last 24 hr 05/17/23 14:00: Urine Color Yellow, Urine Appearance Clear, Urine pH 5.0, Ur Specific [place] 1.020, Urine Protein 1+, Urine Glucose (UA) Trace, Urine Ketones Trace, Urine Blood Negative, Urine Nitrate Negative, Urine Bilirubin Negative, Urine Urobilinogen 0.2, Ur Leukocyte Esterase Negative, Urine RBC None, Urine WBC Occasional, Ur Squamous Epith Cells Occasional, Urine Bacteria None, Urine Yeast 3+ 05/17/23 14:10: WBC 12.2 H, RBC 3.97 L, Hgb 13.0, Hct 40.2, MCV 101.2 H, MCH 32.8 H, MCHC 32.5, RDW 15.3, Plt Count 279, MPV 9.0, Neut % (Auto) 84.0 H, Lymph % (Auto) 8.2 L, [place] % (Auto) 7.4, Eos % (Auto) 0.1, Baso % (Auto) 0.2, Neut # (Auto) 10.2 H, Lymph # (Auto) 1.0, [place] # (Auto) 0.9, Eos # (Auto) 0.0, Baso # (Auto) 0.0, Sodium 139, Potassium 4.0, Chloride 101, Carbon Dioxide 26, Anion Gap 16.0 H, BUN 15, Creatinine 1.00, Estimated Creat Clear 59, Estimated GFR 55 L, Est GFR ( Amer) 67, Glucose 177 H, Lactate 2.0, Calcium 9.6, Total Bilirubin 0.6, AST 24, ALT 29, Alkaline Phosphatase 135 H, Total Protein 7.6 D, Albumin 4.0, Globulin 3.6 H, Albumin/Globulin Ratio 1.1 Medical History: Medical History Acute respiratory failure with hypoxia CAD (coronary artery disease) COPD (chronic obstructive pulmonary disease) Diabetes mellitus Diastolic dysfunction ACUÑA (dyspnea on exertion) History of placement of stent in LAD coronary artery HLD (hyperlipidemia) HTN (hypertension) PAD (peripheral artery disease) Pneumonia due to COVID-19 virus Subclavian artery stenosis, left Tobacco use Assessment and Plan Assessment and plan all Dx Assessment and Plan for all problems:: Pharmacokinetic dosing service Objective: Patient: Floor: Age: 67
--- NOTE | 2023-05-17 16:50 | PC.NURSE ---
report called to shea cutler -states will send staff down transport pt
--- NOTE | 2023-05-17 18:06 | PC.NURSE ---
pt new admit this shift. pt alert and oriented. pt has rhonci in upper lobes. pt has 2LNC in place. non productive cough noted. abdomen soft, nontender t/o, bowel sounds active t/o. pt up to bsc with assist x 1. bed alarm in place. call light w/i reach, pt instructed to call for assistance.
[2023-05-18] VITALS: BP 127/63; PULSE 95; RESP 24; TEMP 37.4; O2SAT 96
[2023-05-18 04:00] VITALS: BP 131/57; PULSE 98; RESP 22; TEMP 37.2; O2SAT 96; BMI 29.5
[2023-05-18 05:32] LABS: POC Glucose,Bedside 206 (70-110)
[2023-05-18 06:07] LABS: Basophils % 0.2 % (0.1-2.0); Eosinophils % 0.4 % (0.1-12.0); Hematocrit 33.8 % (37.0-47.0); Lymphocytes # 1.2 K/mm3 (0.7-4.5); Lymphocytes % 10.6 % (10-50); Mean Corpuscular HGB Conc 31.8 g/dL (31.8-35.4); Mean Corpuscular Hemoglobin 31.8 pg (27.0-31.2); Mean Corpuscular Volume 100.2 fl (81-99); Mean Platelet Volume 8.7 fl (7.4-10.4); Monocytes # 0.9 K/mm3 (0.1-1.0); Monocytes % 8.5 % (1.7-9.3); Neutrophils # 8.9 K/mm3 (1.8-7.8); Neutrophils % 80.3 % (37.0-80.0); Platelet Count 242 K/mm3 (142-424); Red Blood Count 3.37 M/mm3 (4.20-5.40); Red Cell Distribution Width 15.3 % (11.5-17.5)
[2023-05-18 06:22] LABS: Hemoglobin 10.7 g/dL (12.2-16.2)
[2023-05-18 06:24] LABS: Anion Gap 12.5 mEq/L (5-15); Blood Urea Nitrogen 12 mg/dl (7-17); Calcium 8.8 mg/dl (8.4-10.2); Carbon Dioxide 24 mmol/L (22.0-30.0); Chloride 105 mmol/L (98-107); Creatinine Clearance Estimated 63 mL/min (50-200); Estimated Glomerular Filt Rate 72 ml/min (>60); GFR (African American) 87 ML/MIN (>60); Glucose 175 mg/dl (74-100); Potassium 3.5 mmoL/L (3.5-5.1); Sodium 138 mmol/L (136-145)
--- NOTE | 2023-05-18 07:48 | HMH.PHAINT1 ---
Pharmacy Intervention Comments: HOME MEDICATION LIST VERIFIED USING LIST FROM OUTPATIENT PHARMACY
[2023-05-18 08:00] VITALS: BP 130/72; PULSE 89; RESP 26; TEMP 36.8; O2SAT 97
--- NOTE | 2023-05-18 08:21 | EXP.PN ---
Subjective *Date: 05/18/23 *Time: 18:42 Interval history: No acute events overnight. She feels much better tonight and is thinking clearly. She has no complaints. Exam Data for Last 24 hours Vital signs and Labs for Last 24 Hours: Temp Pulse Resp BP Pulse Ox O2 Del Method O2 Flow Rate 99.0 F 98 H 22 131/57 L 96 Nasal Cannula 1.5 05/18/23 04:00 05/18/23 04:00 05/18/23 04:00 05/18/23 04:00 05/18/23 04:00 05/18/23 06:24 05/18/23 06:24 Laboratory Results - last 24 hr 05/17/23 14:00: Urine Color Yellow, Urine Appearance Clear, Urine pH 5.0, Ur Specific [place] 1.020, Urine Protein 1+, Urine Glucose (UA) Trace, Urine Ketones Trace, Urine Blood Negative, Urine Nitrate Negative, Urine Bilirubin Negative, Urine Urobilinogen 0.2, Ur Leukocyte Esterase Negative, Urine RBC None, Urine WBC Occasional, Ur Squamous Epith Cells Occasional, Urine Bacteria None, Urine Yeast 3+ 05/17/23 14:10: WBC 12.2 H, RBC 3.97 L, Hgb 13.0, Hct 40.2, MCV 101.2 H, MCH 32.8 H, MCHC 32.5, RDW 15.3, Plt Count 279, MPV 9.0, Neut % (Auto) 84.0 H, Lymph % (Auto) 8.2 L, [place] % (Auto) 7.4, Eos % (Auto) 0.1, Baso % (Auto) 0.2, Neut # (Auto) 10.2 H, Lymph # (Auto) 1.0, [place] # (Auto) 0.9, Eos # (Auto) 0.0, Baso # (Auto) 0.0, Sodium 139, Potassium 4.0, Chloride 101, Carbon Dioxide 26, Anion Gap 16.0 H, BUN 15, Creatinine 1.00, Estimated Creat Clear 59, Estimated GFR 55 L, Est GFR ( Amer) 67, Glucose 177 H, Lactate 2.0, Calcium 9.6, Total Bilirubin 0.6, AST 24, ALT 29, Alkaline Phosphatase 135 H, Total Protein 7.6 D, Albumin 4.0, Globulin 3.6 H, Albumin/Globulin Ratio 1.1 05/18/23 05:26: POC Glucose 206 H 05/18/23 05:47: WBC 11.0 H, RBC 3.37 L, Hgb 10.7 L D, Hct 33.8 L, MCV 100.2 H, MCH 31.8 H, MCHC 31.8, RDW 15.3, Plt Count 242, MPV 8.7, Neut % (Auto) 80.3 H, Lymph % (Auto) 10.6, [place] % (Auto) 8.5, Eos % (Auto) 0.4, Baso % (Auto) 0.2, Neut # (Auto) 8.9 H, Lymph # (Auto) 1.2, [place] # (Auto) 0.9, Eos # (Auto) 0.0, Baso # (Auto) 0.0, Sodium 138, Potassium 3.5, Chloride 105, Carbon Dioxide 24, Anion Gap 12.5, BUN 12, Creatinine 0.80, Estimated Creat Clear 63, Estimated GFR 72, Est GFR ( Amer) 87 D, Glucose 175 H, Calcium 8.8 I & O for Last 24 hours: Intake & Output 05/15/23 05/16/23 05/17/23 05/18/23 23:59 23:59 23:59 23:59 Intake Total 1100 / 1560 460 / 460 Output Total 950 / 950 400 / 400 Balance 150 / 610 60 / 60 Weight 70.562 kg 72.688 kg Constitutional Constitutional: no acute distress *Routine HEENT Exam Head: Present normocephalic Eye: Present EOMI and PERRL ENT: Present mucous membranes moist *Routine Neck Exam Neck: Present supple; Absent lymphadenopathy *Routine Respiratory Exam Respiratory: Present CTA bilaterally *Routine Cardiovascular Exam Cardiovascular: Present RRR *Routine Abdominal Exam Abdominal: Present soft and normoactive bowel sounds; Absent tenderness *Routine Extremities Exam Extremities: Absent cyanosis, clubbing or edema *Routine Skin Exam Skin: Present warm; Absent rash *Routine Neurological Exam Neurological: Present alert and oriented X3 Assessment and Plan *Assessment and plan (1) Severe sepsis: Status: Acute Category: Medical Code(s): A41.9 - Sepsis, unspecified organism; R65.20 - Severe sepsis without septic shock (2) Acute UTI: Status: Acute Category: Medical Code(s): N39.0 - Urinary tract infection, site not specified (3) CAP (community acquired pneumonia): Status: Acute Category: Medical Code(s): J18.9 - Pneumonia, unspecified organism (4) HTN (hypertension): Status: Chronic Qualifiers: Hypertension type: essential hypertension Qualified Code(s): I10 - Essential (primary) hypertension Category: Medical Code(s): I10 - Essential (primary) hypertension (5) HLD (hyperlipidemia): Status: Chronic Qualifiers: Hyperlipidemia type: mixed hyperlipidemia Qualified Code(s): E78.2 - Mix
[2023-05-18 12:00] VITALS: BP 123/71; PULSE 89; RESP 20; TEMP 36.4; O2SAT 91
[2023-05-18 12:03] LABS: POC Glucose,Bedside 256 (70-110)
[2023-05-18 16:00] VITALS: BP 116/59; PULSE 87; RESP 20; TEMP 36.4; O2SAT 93
[2023-05-18 16:39] LABS: POC Glucose,Bedside 113 (70-110)
--- NOTE | 2023-05-18 19:00 | PC.NURSE ---
PT HAS TOLERATED ROOM AIR WELL THIS SHIFT WITH O2 SATS ABOVE 90% FOR DURATION OF SHIFT. AMBULATED TO RESTROOM WITH MINIMAL ASSISTANCE. NO COMPLAINTS T/O SHIFT. VISITED WITH FAMILY FOR MOST OF THE DAY.
[2023-05-18 20:00] VITALS: BP 104/58; PULSE 86; RESP 20; TEMP 36.6; O2SAT 96
[2023-05-19] VITALS: BP 108/54; PULSE 90; RESP 18; TEMP 37.2; O2SAT 92
[2023-05-19 04:00] VITALS: BP 150/56; PULSE 100; RESP 20; TEMP 37.3; O2SAT 90; BMI 29.9
[2023-05-19 05:17] LABS: POC Glucose,Bedside 216 (70-110)
--- NOTE | 2023-05-19 06:06 | PC.NURSE ---
Patient alert and oriented, slept well during shift. VS stable and patient remained on room air. No other changes noted
[2023-05-19 06:32] LABS: POC Glucose,Bedside 211 (70-110)
[2023-05-19 07:43] LABS: Basophils % 0.2 % (0.1-2.0); Eosinophils # 0.1 K/mm3 (0.0-0.4); Hematocrit 32.6 % (37.0-47.0); Hemoglobin 10.7 g/dL (12.2-16.2); Lymphocytes # 1.3 K/mm3 (0.7-4.5); Lymphocytes % 13.1 % (10-50); Mean Corpuscular HGB Conc 32.9 g/dL (31.8-35.4); Mean Corpuscular Hemoglobin 32.5 pg (27.0-31.2); Mean Corpuscular Volume 98.6 fl (81-99); Mean Platelet Volume 8.8 fl (7.4-10.4); Monocytes # 0.6 K/mm3 (0.1-1.0); Monocytes % 6.5 % (1.7-9.3); Neutrophils # 7.8 K/mm3 (1.8-7.8); Neutrophils % 79.3 % (37.0-80.0); Platelet Count 285 K/mm3 (142-424); Red Blood Count 3.31 M/mm3 (4.20-5.40); Red Cell Distribution Width 15.3 % (11.5-17.5); White Blood Count 9.8 K/mm3 (4.8-10.8)
[2023-05-19 08:00] VITALS: BP 102/76; PULSE 116; RESP 18; TEMP 37.4; O2SAT 92
[2023-05-19 08:23] LABS: Anion Gap 11.6 mEq/L (5-15); Blood Urea Nitrogen 10 mg/dl (7-17); Calcium 8.6 mg/dl (8.4-10.2); Carbon Dioxide 24 mmol/L (22.0-30.0); Chloride 105 mmol/L (98-107); Creatinine Clearance Estimated 64 mL/min (50-200); Estimated Glomerular Filt Rate 72 ml/min (>60); GFR (African American) 87 ML/MIN (>60); Glucose 180 mg/dl (74-100); Potassium 3.6 mmoL/L (3.5-5.1); Sodium 137 mmol/L (136-145)
[2023-05-19 12:03] LABS: POC Glucose,Bedside 252 (70-110)
--- NOTE | 2023-05-19 12:16 | EXP.DC.SUM ---
General Admission date:: 05/17/23 Discharge date: 05/19/23 HPI HPI HPI: Carolina Rivers is a 67 year old female with a past medical history of GERD, CVA, CAD s/p stents, HTN, CHF, T2dm, hld, asthma, copd (on supplemental oxygen only at night), gout, lung cancer s/p radiation, recurrent pneumonia and cigarette nicotine dependence. She developed confusion on Sunday and saw her PCP who diagnosed her with a UTI, gave her a shot of Rocephin and prescribed her a course of cefdinir. The patient's mental status was improving up until earlier this morning when she was much more lethargic than her usual self; she also began to complain of shortness of breath. Initial vitals BP 136/68 - P 102 - RR 18 - T 101.7 F - Spo2 93% RA Initial workup: CBC with 12.2 WBCs, CMP wth Cr 1.0 UA with occasional wbcs Blood cultures were collected Head CT - no acute intracranial process CXR with probable acute left upper lung pneumonia Urine culture 05/14 >100k e. coli resistant to ampicillin Hospital Course Hospital Course Hospital Course: #altered mental status, resolved #pneumonia, acute The patient was treated with Vancomycin IV, Zosyn and azithromycin throughout the hospital course. Blood cultures had no growth after 48 hours. By the morning after the day of admission the patient's mental status returned to her baseline. The patient was discharged with 5 days of azithromycin and Augmentin, to complete a 7 day course of antibiotics for her pneumonia. She was asked to hold her Bumex until she follows up with her PCP or Pediatric Nurse Practitioner because she had soft blood pressures. Exam Data for Last 24 hours Vital signs and Labs for Last 24 Hours: Temp Pulse Resp BP Pulse Ox O2 Del Method O2 Flow Rate 99.4 F 116 H 18 102/76 L 92 L Room Air 1.5 05/19/23 08:00 05/19/23 08:00 05/19/23 08:00 05/19/23 08:00 05/19/23 08:00 05/19/23 09:00 05/18/23 18:29 Laboratory Results - last 24 hr 05/18/23 16:13: POC Glucose 113 H 05/18/23 20:48: POC Glucose 216 H 05/19/23 06:23: POC Glucose 211 H 05/19/23 07:09: WBC 9.8, RBC 3.31 L, Hgb 10.7 L, Hct 32.6 L, MCV 98.6, MCH 32.5 H, MCHC 32.9, RDW 15.3, Plt Count 285, MPV 8.8, Neut % (Auto) 79.3, Lymph % (Auto) 13.1, [place] % (Auto) 6.5, Eos % (Auto) 1.0, Baso % (Auto) 0.2, Neut # (Auto) 7.8, Lymph # (Auto) 1.3, [place] # (Auto) 0.6, Eos # (Auto) 0.1, Baso # (Auto) 0.0, Sodium 137, Potassium 3.6, Chloride 105, Carbon Dioxide 24, Anion Gap 11.6, BUN 10, Creatinine 0.80, Estimated Creat Clear 64, Estimated GFR 72, Est GFR ( Amer) 87, Glucose 180 H, Calcium 8.6 05/19/23 11:46: POC Glucose 252 H I & O for Last 24 hours: Intake & Output 05/16/23 05/17/23 05/18/23 05/19/23 23:59 23:59 23:59 23:59 Intake Total 1100 / 1560 1900 / 1900 240 / 240 Output Total 950 / 950 700 / 700 0 / 0 Balance 150 / 610 1200 / 1200 240 / 240 Weight 70.562 kg 72.688 kg 73.992 kg Constitutional Constitutional: no acute distress *Routine HEENT Exam Head: Present normocephalic Eye: Present EOMI and PERRL ENT: Present mucous membranes moist *Routine Neck Exam Neck: Present supple; Absent lymphadenopathy *Routine Respiratory Exam Respiratory: Present CTA bilaterally *Routine Cardiovascular Exam Cardiovascular: Present RRR *Routine Abdominal Exam Abdominal: Present soft and normoactive bowel sounds; Absent tenderness *Routine Extremities Exam Extremities: Absent cyanosis, clubbing or edema *Routine Skin Exam Skin: Present warm; Absent rash *Routine Neurological Exam Neurological: Present alert and oriented X3 Results Data Completed and Pending Labs on day of discharge: Labs from last 24 hours 05/19/23 05/19/23 05/19/23 11:46 07:09 06:23 WBC 9.8 RBC 3.31 L Hgb 10.7 L Hct 32.6 L MCV 98.6 MCH 32.5 H MCHC 32.9 RDW 15.3 Plt Count 285 MPV 8.8 Neut % (Auto) 79.3 Lymph % (Auto) 13.1 [place] % (Auto) 6.5 Eos % (Auto) 1.0 Baso % (Auto) 0.2 Neut # (Auto) 7.8 Lymph # (Au
--- NOTE | 2023-05-21 12:32 | CARE MANAGER ---
Contacted patient related to hospital discharge. She states she is doing well and she will call tomorrow to schedule a follow up appointment with MD. She picked up her new medication and deny any questions or concerns. YOAV Arizmendi
== END 2023-05-19 12:32 | disposition home or self-care (01) ==
LOC: ER 16:03 → 2ND 16:57
PROVIDERS: Admitting Provider Internal Medicine; Emergency Provider Emergency Medicine; PCP Nurse Practitioner Family; Visit Provider Internal Medicine
DX: N39.0 Urinary tract infection, site not specified (principal); J18.9 Pneumonia, unspecified organism; A41.9 Sepsis, unspecified organism; E11.51 Type 2 diabetes mellitus with diabetic peripheral angiopathy without gangrene; Z95.5 Presence of coronary angioplasty implant and graft; E78.2 Mixed hyperlipidemia; J43.9 Emphysema, unspecified; J96.91 Respiratory failure, unspecified with hypoxia; F17.210 Nicotine dependence, cigarettes, uncomplicated; G93.40 Encephalopathy, unspecified
CPT/HCPCS: 36415; 70450; 71045; 80048; 80053; 81001; 82962; 83605; 85007; 85025; 87040; 87086; 87088; 87186; 94640; 96372; 99291; G0378; J0456; J0696; J2543

== ENCOUNTER 2023-11-02 07:52 | Outpatient (CLI) | payer MEDICARE, SELFPAY ==
--- NOTE | 2023-11-02 07:59 | MM_ITS ---
PROCEDURE INFORMATION: Exam: MG Bilateral Screening 3D Mammography Exam date and time: 11/02/2023 8:03 AM Age: 68 years old Clinical indication: Screening mammogram TECHNIQUE: Imaging protocol: Bilateral Screening tomosynthesis and 2D mammography including computer-aided detection (CAD) when performed. COMPARISON: 1. MG MM DIG SCREENING MAMM BI W/CAD 12/03/2020 9:45 AM 2. MG MM DIG SCREENING MAMM BI W/CAD 04/25/2019 3:59 PM 3. MG SCBI MM Dig screening mamm BI w/CAD 10/25/2017 3:59 PM 4. MG DMSB DIG MAMM-SCREEN GWEN 09/01/2016 9:53 AM FINDINGS: MAMMOGRAPHY: Breast composition: There are scattered areas of fibroglandular density. Mass: None. Architectural distortion: No new or suspicious architectural distortion. Calcifications: No new or suspicious calcifications are present Asymmetric density: No new or suspicious asymmetric density is present Skin thickening: None. Axillary adenopathy: None. IMPRESSION: No mammographic evidence of malignancy. Recommend annual screening mammography unless otherwise clinically indicated. ASSESSMENT: BI-RADS category 1: Negative
--- NOTE | 2023-11-02 08:00 | XR_ITS ---
FINAL REPORT TECHNIQUE: Bone mineral density was calculated of the lumbar spine and hip. CLINICAL HISTORY: OSTEOPENIA FINDINGS: Using L1-4, the bone mineral density of the spine is 1.146 g/cm2, corresponding to T-score of 0.9. Using the right hip, the bone mineral density of the femoral neck is 0.608 g/cm2, corresponding to a T-score of -2.2. Using the 1/3 radius, the bone mineral density of the radius is 0.498 g/cm2, corresponding to a T-score of -3.3. NOTE: T-score: Standard deviation compared with peak bone mass of young adult mean. *Following the recommendations of the International Society of Bone densitometry, classification of hip BMD is based on the lower of two T-scores; total hip or femoral neck. IMPRESSION: Diminished bone mineral density consistent osteoporosis. FRAX data reports 20% major osteoporotic fracture and 5.9% hip fracture. Reviewed, Interpreted and Dictated by Thanh Jones III, MD Transcribed by Imani Cortez Authenticated and [facility]
== END 2023-11-02 23:59 ==
LOC: RAD 07:53
PROVIDERS: PCP Nurse Practitioner Family; Visit Provider Nurse Practitioner Family
DX: M85.89 Other specified disorders of bone density and structure, multiple sites; Z12.31 Encounter for screening mammogram for malignant neoplasm of breast; Z13.820 Encounter for screening for osteoporosis; Z78.0 Asymptomatic menopausal state
CPT/HCPCS: 77063; 77067; 77080

== ENCOUNTER 2023-11-29 12:59 | Outpatient (CLI) | payer MEDICARE, SELFPAY ==
[2023-11-29 13:04] VITALS: BMI 27.4
[2023-11-29 13:42] LABS: Albumin Level 3.9 g/dl (3.5-5.0)
[2023-11-29 13:44] LABS: Blood Urea Nitrogen 24 mg/dl (7-17); Calcium 9.5 mg/dl (8.4-10.2); Creatinine Clearance Estimated 44 mL/min (50-200); Estimated Glomerular Filt Rate 41 ml/min (>60); GFR (African American) 49 ML/MIN (>60)
[2023-11-29 14:10] VITALS: BP 118/63; PULSE 68; RESP 19; O2SAT 95
[2023-11-29] MEDS: 0.9 % SODIUM CHLORIDE 50 ML 400 ML IV (14:10)
[2023-11-29] MEDS: ZOLEDRONIC ACID/MANNITOL-WATER 5 MG/100 ML PGGYBK.BTL 400 MG IV (14:10)
[2023-11-29 14:35] VITALS: BP 133/74; PULSE 64; RESP 18; O2SAT 96
== END 2023-11-29 14:35 | disposition home or self-care (01) ==
LOC: INF 13:00
PROVIDERS: PCP Nurse Practitioner Family; Visit Provider Nurse Practitioner Family
DX: M81.0 Age-related osteoporosis without current pathological fracture (principal)
CPT/HCPCS: 82040; 82310; 82565; 84520; 96374; J3489

== ENCOUNTER 2023-12-01 01:50 | Inpatient (IN) | payer MEDICARE, SELFPAY ==
[2023-12-01] VITALS (17 sets, daily range): BP systolic 101–156; BP diastolic 59–114; PULSE 64–104; RESP 16–26; TEMP 36.5–37.3; O2SAT 80–96; BMI 27.4; BMI 29.2
--- NOTE | 2023-12-01 02:05 | XR_ITS ---
PROCEDURE INFORMATION: Exam: XR Chest Exam date and time: 12/01/2023 2:10 AM Age: 68 years old Clinical indication: Shortness of breath TECHNIQUE: Imaging protocol: Radiologic exam of the chest. Views: 1 view. COMPARISON: CR XR CHEST PORTABLE 05/17/2023 3:34 PM FINDINGS: Lungs: Worsening dense consolidation of the left upper lung field. Lungs are otherwise clear. Pleural spaces: Unremarkable. No pleural effusion. No pneumothorax. Heart/Mediastinum: Unremarkable. No cardiomegaly. Bones/joints: Unremarkable. There is no acute fracture present. IMPRESSION: Worsening dense consolidation of the left upper lung field. This is concerning for endobronchial lesion.
[2023-12-01] MEDS: IPRATROPIUM/ALBUTEROL 3 ML NEB IH ×6 (02:07→21:24)
--- NOTE | 2023-12-01 02:10 | ED_ITS ---
Discharge Plan Disposition Patient Disposition: Admitted Condition: Good Chief Complaint: Shortness of Breath/Dyspnea Prescriptions Prescriptions: No Action ipratropium-albuterol 0.5 mg-3 mg(2.5 mg base)/3 mL solution for nebulization 3 ml IH QIDP PRN (Reason: Shortness Of Breath) metformin 1,000 mg tablet 1,000 mg PO BIDWMEAL 90 Days Qty: 180 Patient Comments: clopidogrel 75 mg tablet 75 mg PO DAILY 90 Days Qty: 90 Patient Comments: cetirizine 10 mg tablet 10 mg PO DAILY 30 Days Qty: 30 Patient Comments: TAKE 1 TABLET ONCE A DAY FOR VERTIGO atorvastatin 20 mg tablet 20 mg PO HS 90 Days Qty: 90 Patient Comments: Trelegy Ellipta 100-62.5-25 mcg blister with device 1 inh inhalation DAILY spironolactone 50 mg tablet See Rx Instructions .ROUTE .COMPLEX Qty: 180 3RF Dose Instruction: TAKE 1 TABLET TWICE DAILY FOR FLUID Rx Instructions: TAKE 1 TABLET TWICE DAILY FOR FLUID atenolol 25 MG tablet 25 mg PO DAILY escitalopram oxalate 5 MG tablet 5 mg PO DAILY allopurinol 100 mg tablet 200 mg PO DAILY azithromycin 250 mg tablet 250 mg PO WE Rx Instructions: takes on Sunday, Sunday, Sunday magnesium oxide 400 mg (241.3 mg magnesium) tablet 400 mg PO DAILY Patient Comments: TAKE 1 TABLET BY MOUTH ONCE DAILY oxycodone-acetaminophen [Percocet] 5-325 mg tablet 1 - 2 tab PO Q6H PRN (Reason: pain) Qty: 60 0RF gabapentin 300 mg capsule 600 mg PO BID 90 Days Qty: 360 0RF colchicine 0.6 mg tablet 0.6 mg PO DAILYP PRN (Reason: gout) Patient Comments: TAKE 1 TABLET BY MOUTH EVERY DAY NEEDED FOR GOUT bumetanide 1 mg tablet 1 mg PO DAILY Hold Instructions: Resume on 05/26/23. nicotine [Nicoderm CQ] 21 mg/24 hr patch 24 hour 1 patch transdermal DAILY meloxicam 15 mg tablet 15 mg PO DAILY amoxicillin-pot clavulanate 875-125 mg tablet 1 tab PO BID 5 Days Qty: 10 0RF Rx Instructions: First dose on evening of 05/19/2023 azithromycin 250 mg tablet 250 mg PO DAILY 5 Days Qty: 5 0RF aspirin 81 MG tablet,delayed release (DR/EC) 81 mg PO DAILY Referrals Follow up/Referrals: Brandy Jorgensen APRN [Primary Care Provider] - See instructions Clinical Impressions Clinical Impression: Pneumonia, CHF (congestive heart failure), COPD exacerbation, Sepsis Discharge ED Provider: Jeanine Moy HPI General Chief Complaint: Shortness of Breath/Dyspnea Stated Complaint: short of breath, ams, possible uti Time Seen by Provider: 12/01/23 01:52 History of Present Illness HPI narrative: Patient is a 68-year-old female with past medical history COPD, CAD, hyperlipidemia, hypertension, pulmonary hypertension, heart failure with preserved ejection fraction presenting with shortness of breath, confusion and concern for UTI. Per daughter at bedside states that she was out to eat with her uncle this evening and kept repeating phrases which is an indicator to daughter that patient may be going into a UTI. Daughter was with patient this evening and she did have some episodes of confusion and repeating phrases and seemed short of breath. She is a current everyday smoker and wears 2 L nasal cannula at night. Patient had initially declined being seen but was finally agreeable and they therefore present for further evaluation. Daughter did take patient's temperature at home and it was 100 Fahrenheit. She does have a history of UTIs and recently had an iron infusion 2 days ago. Related Data Home Medications Medication Instructions Recorded Confirmed atorvastatin 20 mg tablet 20 mg PO HS Cholesterol 90 days 10/26/17 05/17/23 ##90 cetirizine 10 mg tablet 10 mg PO DAILY Allergy symptoms 30 10/26/17 05/17/23 days ##30 clopidogrel 75 mg tablet 75 mg PO DAILY platelet inhibitor 10/26/17 05/17/23 90 days ##90 metformin 1,000 mg tablet 1,000 mg PO BIDWMEAL Diabetes 90 10/26/17 05/17/23 days ##180 aspirin 81 mg tablet,delayed 81 mg PO DAILY Heart health 05/06/18 05/17/23 release atenolol 25 mg tablet 25 mg PO DAILY Heart rate/Blood 06/03/20 05/17/23 pressure escitalopram oxalate 5 mg tablet 5 mg PO DAILY mood 06/03/20 05/17/23 ipratropium 0.5 mg-albuterol 3 mg 3 ml inhalation QIDP PRN Shortness 05/03/22 05/17/23 (2.5 mg base)/3 mL nebulization Of Breath soln allopurinol 100 mg tablet 200 mg PO DAILY Gout 12/27/22 05/17/23 fluticasone fur. 100 mcg-umeclid 1 inh inhalation DAILY COPD 01/17/23 05/17/23 62.5 mcg-vilant 25 mcg inhalat.powder (Trelegy Ellipta) azithromycin 250 mg tablet 250 mg PO MOWEFR COPD 01/29/23 05/17/23 magnesium oxide 400 mg (241.3 mg 400 mg PO DAILY Supplement 01/30/23 05/17/23 magnesium) tablet bumetanide 1 mg tablet 1 mg PO DAILY Fluid 05/17/23 05/17/23 colchicine 0.6 mg tablet 0.6 mg PO DAILYP PRN gout 05/17/23 05/17/23 meloxicam 15 mg tablet 15 mg PO DAILY Pain 05/17/23 05/17/23 nicotine 21 mg/24 hr daily 1 patch transdermal DAILY smoking 05/17/23 05/17/23 transdermal patch (Nicoderm CQ) cessation Previous Rx's Medication Instructions Recorded gabapentin 300 mg capsule 600 mg (2 x 300 mg) PO BID Nerve 02/02/23 pain 90 days #360 caps oxycodone-acetaminophen 5 mg-325 1 - 2 tab PO Q6H PRN pain #60 tabs 02/02/23 mg tablet (Percocet) amoxicillin 875 mg-potassium 1 tab PO BID 5 days #10 tabs 05/19/23 clavulanate 125 mg tablet azithromycin 250 mg tablet 250 mg PO DAILY 5 days #5 tabs 05/19/23 spironolactone 50 mg tablet See Rx Instructions .Route 09/24/23 .COMPLEX #180 tabs Allergies Allergy/AdvReac Type Severity Reaction Status Date / Time Sulfa (Sulfonamide Allergy Unknown BLISTERING Verified 02/13/23 14:42 Antibiotics) OF THROAT levofloxacin [From Levaquin] Allergy Verified 02/13/23 14:42 PFSH PFS Disclaimer: The information contained in this section may have been updated after the patient was seen, as this information can be updated by other users. Medical History Acute respiratory failure with hypoxia CAD (coronary artery disease) APR 2022-Severe ostial mid left main disease as described Successful stenting of the ostial proximal mid distal left main artery reducing the stenosis to less than 10% giving excellent angiograph results Preserved ejection fraction Normal left ventricular end-diastolic pressure Persistent stenosis in a large posterior lateral branch which is best managed medically COPD (chronic obstructive pulmonary disease) Diabetes mellitus Diastolic dysfunction ACUÑA (dyspnea on exertion) History of placement of stent in LAD coronary artery HLD (hyperlipidemia) HTN (hypertension) PAD (peripheral artery disease) Pneumonia due to COVID-19 virus Subclavian artery stenosis, left Tobacco use Surgical History Hx of right coronary artery stent placement Family History Other No significant family history Social History Smoking Status: Current every day smoker tobacco type: cigarettes packs per day: 1 second hand exposure: No alcohol intake: never substance use type: denies use current occupational status: retired Travel in the last 8 weeks: None household members: none housing: house current occupational exposures/hazards: No caffeine: Yes ROS Obtained: Yes Systems reviewed as appropriate & no additional complaints except as documented Physical Exam General General appearance: alert Comment: Tachypneic, conversationally dyspneic Head Head exam: atraumatic and normocephalic Eye Eye exam: Present PERRL and EOMI ENT ENT exam: Present mucous membranes moist Neck Neck exam: Present normal inspection Chest Chest inspection: Present normal inspection and symmetric chest wall rise Respiratory Respiratory exam: Present other (Scattered diffuse wheezing bilaterally with some coarse breath sounds bilaterally and tachypnea) Cardiovascular Cardiovascular exam: Present regular rate and normal rhythm Abdominal Exam Abdominal exam: Present soft; Absent tenderness Extremities Exam Extremities exam: Present normal inspection Neurological Exam Neurological exam: Present alert, oriented X3 and other (Moving all extremities equally and fully, does repeat some phrases like what are you doing ) Skin Skin exam: Present warm and dry HEART Score HEART Score HEART Score assessment performed?: Yes History (anamnesis): Slightly suspicious ECG: Non-specific disturbance Age: >65 years Risk factors: Atherosclerosis history Troponin: </= normal limit HEART Score: 5 Critical Care Critical Care Time Critical Care Time: No Medical Decision Making Medical Records Medical records reviewed: Yes I reviewed the patient's medical records. Micheal Inquiry Pt receiving controlled substance: No Vital Signs Vital Signs: 12/01/23 01:52 12/01/23 02:02 12/01/23 02:18 Temperature 99.2 F Temperature Source Oral Pulse Rate 98 H 94 H Pulse Rate [Left Radial] 104 H Respiratory Rate 26 H 24 Blood Pressure 156/114 H Blood Pressure [Right Arm] 156/114 H Blood Pressure Mean 124 Blood Pressure Mean [Right Arm] 128 02 Sat by Pulse Oximetry 80 L 96 93 L Oxygen Delivery Method Room Air Nasal Cannula Nasal Cannula Oxygen Flow Rate (LPM) 4 12/01/23 02:31 Temperature Temperature Source Pulse Rate 95 H Pulse Rate [Left Radial] Respiratory Rate 26 H Blood Pressure 131/67 Blood Pressure [Right Arm] Blood Pressure Mean 95 Blood Pressure Mean [Right Arm] 02 Sat by Pulse Oximetry 95 Oxygen Delivery Method Nasal Cannula Oxygen Flow Rate (LPM) Lab Data Lab results reviewed: Yes I reviewed the patient's lab results. Labs: Lab Results 12/01/23 01:59: Urine Color Yellow, Urine Appearance Sl cloudy, Urine pH 7.5, Ur Specific Sullivan 1.015, Urine Protein 1+, Urine Glucose (UA) Negative, Urine Ketones Negative, Urine Blood Negative, Urine Nitrate Positive, Urine Bilirubin Negative, Urine Urobilinogen 0.2, Ur Leukocyte Esterase Negative, Urine RBC None, Urine WBC 10-20, Ur Squamous Epith Cells 5-10, Urine Bacteria 3+ 12/01/23 02:06: VBG pH 7.41, VBG pCO2 42.1, VBG pO2 28.5, VBG HCO3 26.3, VBG Total CO2 27.6 H, VBG O2 Saturation 55.5, VBG Base Excess 1.7, VBG Lactic Acid 2.0 12/01/23 02:11: WBC 6.4, RBC 4.36, Hgb 14.7, Hct 46.9, MCV 107.6 H, MCH 33.8 H, MCHC 31.4 L, RDW 15.4, Plt Count 222, MPV 8.5, Neut % (Auto) 82.9 H, Lymph % (Auto) 10.1, Sumner % (Auto) 4.9, Eos % (Auto) 0.9, Baso % (Auto) 1.2, Neut # (Auto) 5.3, Lymph # (Auto) 0.7, Sumner # (Auto) 0.3, Eos # (Auto) 0.1, Baso # (Auto) 0.1, Sodium 138, Potassium 4.0, Chloride 102, Carbon Dioxide 26, Anion Gap 14.0, BUN 25 H, Creatinine 1.40 H, Estimated Creat Clear 41, Estimated GFR 37 L, Est GFR ( Amer) 45 L, Glucose 205 H, Lactate 1.3, Calcium 9.6, Total Bilirubin 0.4, AST 33, ALT 31, Alkaline Phosphatase 136 H, Troponin I < 0.01, NT-Pro-B Natriuret Pep 1270 H, Total Protein 7.7, Albumin 4.7, Globulin 3.0, Albumin/Globulin Ratio 1.6 12/01/23 02:25: SARS-CoV-2 (PCR) Not detected, Influenza A Untype (PCR) Not detected, Influenza Type B (PCR) Not detected 12/01/23 02:11 12/01/23 02:11 Response Orders (Tests/Meds): ED MEDICATIONS Generic Name Dose Route Start Last Admin Trade Name Freq PRN Reason Stop Dose Admin Furosemide 40 mg 12/01/23 02:56 Furosemide 40mg/4ml Vial IV 12/01/23 02:57 ONCE ONE Sodium Chloride 1,000 mls @ 500 mls/hr 12/01/23 02:07 12/01/23 02:36 Sod Chlor 0.9% 1000ml Bag IV 12/01/23 04:06 500 mls/hr .Q2H ONE Administration Piperacillin Sod/Tazobactam 50 mls @ 100 mls/hr 12/01/23 02:30 12/01/23 02:38 Sod 3.375 gm/ Sodium Chloride IV 12/11/23 02:29 100 mls/hr Q8H GREG Administration Methylprednisolone Sodium Succinate 125 mg 12/01/23 02:56 Methylprednisolone Sod Succ 125mg Vial IV 12/01/23 02:57 ONCE ONE Discontinued Medications Generic Name Dose Route Start Last Admin Trade Name Freq PRN Reason Stop Dose Admin Albuterol/Ipratropium 3 ml 12/01/23 02:06 12/01/23 02:07 Ipratropium/Albuterol 3 Ml Neb IH 12/01/23 02:07 3 ml ONCE ONE Administration ORDERS Category Date Time Status XR chest portable Stat Exams 12/01/23 02:05 Taken Brain Natriuretic Peptide Stat Lab 12/01/23 02:11 Completed Complete Blood Count Auto Diff Stat Lab 12/01/23 02:11 Completed Comprehensive Metabolic Panel Stat Lab 12/01/23 02:11 Completed Lactic Acid Stat Lab 12/01/23 02:11 Completed Rapid PCR Covid and Flu A/B Stat Lab 12/01/23 02:25 Completed Troponin I Q3H Lab 12/01/23 05:15 Ordered Troponin I Q3H Lab 12/01/23 08:15 Ordered Troponin I Stat Lab 12/01/23 02:11 Completed Urinalysis and Microscopic Stat Lab 12/01/23 01:59 Completed Blood Culture Stat Micro 12/01/23 02:11 Received Urine Culture Stat Micro 12/01/23 01:59 Received Venous Blood Gas Stat RT 12/01/23 02:06 Completed MDM Narrative Medical Decision Narrative: Patient is a 68-year-old female with past medical history pulmonary hypertension, CHF, COPD on 2 L nasal cannula at night, hypertension and hyperlipidemia presenting with shortness of breath and confusion concerning for UTI. Her daughter noted confusion this evening with repeated phrases similar to when she has had a UTI in the past and that she has also been more short of breath than normal. She is with oxygen saturation 78% on room air, tachypneic, conversationally dyspneic and tachycardic meeting septic criteria. Given her history of pulmonary hypertension and CHF we will proceed cautiously with fluids and reassess rather than give 30mL/kg especially considering patient's tenuous respiratory status and that she is already hypoxic. Will obtain broad labs for further evaluation. EKG without acute ischemia or infarction, CBC without leukocytosis but does show neutrophil predominance likely impending infection, lactate 2, troponin negative, CMP nonactionable with creatinine of 1.4, UA without nitrites or leukocytes but does show 10-20 white blood cells possibly a small UTI, BNP is elevated to 1270 and feel there could be some component of CHF exacerbation and COPD exacerbation in the setting of pneumonia which does seem to be present on chest x-ray. We did obtain blood cultures and start patient on Zosyn. She is requiring 4 L nasal cannula to maintain her oxygen saturations in the low 90s but did have improvement after DuoNeb. Given concern for sepsis in the setting of pneumonia I did speak with patient and daughter at bedside who were agreeable with admission and I also spoke with hospitalist who is agreeable with admission for continued management.
[2023-12-01 02:12] LABS: Microscopic, Urine URINE MICROSCOPIC (MICROSCOPIC)
[2023-12-01 02:13] LABS: Appearance,Urine SL CLOUDY (Clear); Bilirubin,Urine Negative (Negative); Blood, Urine Negative (Negative); Color,Urine YELLOW (Yellow); Glucose,Urine (UA) Negative (Negative); Ketones,Urine Negative (Negative); Leukocyte Esterase,Urine Negative (Negative); Nitrate,Urine POSITIVE (Negative); PH,Urine 7.5 (5.0-8.5); Protein,Urine 1+ (Negative); Specific Gravity, Urine 1.015 (1.005-1.030); Urobilinogen,Urine 0.2 EU/dl (0.2)
[2023-12-01 02:14] LABS: VBG Base Excess 1.7 mmol/L (-2.4-2.3); VBG HCO3 26.3 mmol/L (23-30); VBG Oxygen Saturation 55.5 % (50-70); VBG PCO2 42.1 mmol/L (35-51); VBG PH 7.41 mmol/L (7.31-7.41); VBG PO2 28.5 mmol/L (28-40); VBG Total CO2 27.6 mmol/L (23-27)
[2023-12-01 02:24] LABS: Bacteria,Urine 3+ /lpf
[2023-12-01 02:25] LABS: Basophils # 0.1 K/mm3 (0-0.2); Basophils % 1.2 % (0.1-2.0); Eosinophils # 0.1 K/mm3 (0.0-0.4); Eosinophils % 0.9 % (0.1-12.0); Hematocrit 46.9 % (37.0-47.0); Hemoglobin 14.7 g/dL (12.2-16.2); Lymphocytes # 0.7 K/mm3 (0.7-4.5); Lymphocytes % 10.1 % (10-50); Mean Corpuscular HGB Conc 31.4 g/dL (31.8-35.4); Mean Corpuscular Hemoglobin 33.8 pg (27.0-31.2); Mean Corpuscular Volume 107.6 fl (81-99); Mean Platelet Volume 8.5 fl (7.4-10.4); Monocytes # 0.3 K/mm3 (0.1-1.0); Monocytes % 4.9 % (1.7-9.3); Neutrophils # 5.3 K/mm3 (1.8-7.8); Neutrophils % 82.9 % (37.0-80.0); Platelet Count 222 K/mm3 (142-424); Red Blood Count 4.36 M/mm3 (4.20-5.40); Red Cell Distribution Width 15.4 % (11.5-17.5); Sodium 138 mmol/L (136-145); White Blood Count 6.4 K/mm3 (4.8-10.8)
--- NOTE | 2023-12-01 02:25 | ECG_ITS ---
APPROVED REPORT Exam: Resting ECG HR:96 bpm ECG Measurements Heart Rate 96 AXES SC 148 P 87 QRSd 87 QRS 67 QT 371 T 64 QTc 425 Conclusion SINUS RHYTHM WITH OCCASIONAL SUPRAVENTRICULAR PREMATURE COMPLEXES LOW QRS VOLTAGE IN PRECORDIAL LEADS [QRS DEFLECTION < 1.0 mV IN CHEST LEADS] Electronically signed by : LOS SYED, 12/01/2023 02:39:50
[2023-12-01 02:26] LABS: Chloride 102 mmol/L (98-107)
[2023-12-01 02:27] LABS: Blood Urea Nitrogen 25 mg/dl (7-17); Creatinine Clearance Estimated 41 mL/min (50-200); Estimated Glomerular Filt Rate 37 ml/min (>60); GFR (African American) 45 ML/MIN (>60); Lactic Acid 1.3 mmol/L (0.7-2.1)
[2023-12-01 02:28] LABS: Coronavirus 19, PCR Not Detected (NotDetected); Influenza A, PCR Not Detected (NotDetected); Influenza B, PCR Not Detected (NotDetected)
[2023-12-01 02:28] LABS: Alanine Aminotransferase 31 U/L (12-78); Albumin Level 4.7 g/dl (3.5-5.0); Albumin/Globulin Ratio 1.6 (1.1-1.8); Alkaline Phosphatase 136 U/L (38-126); Aspartate Amino Transferase 33 U/L (14-36); Bilirubin,Total 0.4 mg/dl (0.2-1.3); Calcium 9.6 mg/dl (8.4-10.2); Carbon Dioxide 26 mmol/L (22.0-30.0); Glucose 205 mg/dl (74-100); Total Protein,Serum 7.7 g/dl (6.3-8.2)
[2023-12-01] MEDS: 0.9 % SODIUM CHLORIDE 1000ML 1,000 ML 500 ML IV (02:36)
[2023-12-01 02:38] LABS: NT Pro Brain Natriuretic Pep. 1270 pg/mL (0-125)
[2023-12-01] MEDS: PIPERCILLIN/TAZO 3.375 GM in 0.9 % SODIUM CHLORIDE 50 ML IV (02:38)
[2023-12-01 02:41] LABS: Troponin I < 0.01 ng/ml (0.00-0.034)
--- NOTE | 2023-12-01 03:12 | PC.NURSE ---
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
[2023-12-01] MEDS: FUROSEMIDE 40MG/4ML VIAL 40 MG IV (03:29)
[2023-12-01] MEDS: METHYLPREDNISOLONE SOD SUCC 125MG VIAL 125 MG IV (03:29)
--- NOTE | 2023-12-01 03:49 | PC.NURSE ---
Patient arrived to floor via stretcher from the ED at 3:42.
--- NOTE | 2023-12-01 04:16 | P.HP_ITS ---
<Statement entered by Herlinda Do MD - 12/01/23 15:52> Attending attestation Patient was seen and evaluated at the bedside myself, agree with VIRGEN note. History of Present Illness *Admission Date: 12/01/23 *Reason for visit:: sepsis *History of present illness: 68 year old female presented to [facility] ED for c/o SOB and confusion. PMHX of COPD, CHF, HLD, HTN, DM, Fibromyalgia, and tobacco abuse. The daughter is at bedside and is main historian. The pt wears 2L of oxygen at night to sleep. Upon ED arrival she was hypoxic. She is now requiring 4L NC. The ED work up revealed a UTI with positive nitrates and chest xray with left upper lung field dense consolidation. The ED physician started the pt on zoysn and IV fluids. Her BNP was elevated @ 1270. She was given 40mg of lasix. The ED physician consulted the hospitalist team for further medical management. I admitted the pt to the medical floor. She will continue to receive IV zosyn and methylprednisone. She will also receive scheduled duonebs. I have consulted pulmonary and cardiology to assist with her inpatient care. The pt's blood work was concerning for an JUVE with creatinine of 1.4. I will repeat her kidney function this morning and monitor her electrolyte balance due to diuresis. She has blood cultures and urine culture pending. Pt is currently hemodynamically stable. The pt had an iron transfusion on Sunday for her fibromyalgia [facility] Disclaimer: The information contained in this section may have been updated after the patient was seen, as this information can be updated by other users. Medical History (Updated 12/01/23 @ 04:19 by MEDHAT Koehler) Acute respiratory failure with hypoxia Pneumonia due to COVID-19 virus Diabetes mellitus Diastolic dysfunction HLD (hyperlipidemia) HTN (hypertension) Subclavian artery stenosis, left PAD (peripheral artery disease) Tobacco use History of placement of stent in LAD coronary artery CAD (coronary artery disease) COPD (chronic obstructive pulmonary disease) ACUÑA (dyspnea on exertion) Surgical History Hx of right coronary artery stent placement Family History Other No significant family history Social History Smoking Status: Current every day smoker tobacco type: cigarettes packs per day: 1 second hand exposure: No alcohol intake: never substance use type: denies use current occupational status: retired Travel in the last 8 weeks: None household members: none housing: house current occupational exposures/hazards: No caffeine: Yes Review of Systems Review of Systems Review of systems:: pertinent systems reviewed and negative unless documented below Meds Home Medications and Allergies Home Medications Medication Instructions Recorded Confirmed Type atorvastatin 20 mg tablet 20 mg PO HS Cholesterol 90 days 10/26/17 12/01/23 History ##90 cetirizine 10 mg tablet 10 mg PO DAILY Allergy symptoms 30 10/26/17 12/01/23 History days ##30 clopidogrel 75 mg tablet 75 mg PO DAILY platelet inhibitor 10/26/17 12/01/23 History 90 days ##90 metformin 1,000 mg tablet 1,000 mg PO BIDWMEAL Diabetes 90 10/26/17 12/01/23 History days ##180 aspirin 81 mg tablet,delayed 81 mg PO DAILY Heart health 05/06/18 12/01/23 History release atenolol 25 mg tablet 25 mg PO DAILY Heart rate/Blood 06/03/20 12/01/23 History pressure escitalopram oxalate 5 mg tablet 5 mg PO DAILY mood 06/03/20 12/01/23 History ipratropium 0.5 mg-albuterol 3 mg 3 ml inhalation QIDP PRN Shortness 05/03/22 12/01/23 History (2.5 mg base)/3 mL nebulization Of Breath soln allopurinol 100 mg tablet 200 mg PO DAILY Gout 12/27/22 12/01/23 History fluticasone fur. 100 mcg-umeclid 1 inh inhalation DAILY COPD 01/17/23 12/01/23 History 62.5 mcg-vilant 25 mcg inhalat.powder (Trelegy Ellipta) azithromycin 250 mg tablet 250 mg PO MOWEFR COPD 01/29/23 12/01/23 History gabapentin 300 mg capsule 600 mg (2 x 300 mg) PO BID Nerve 02/02/23 12/01/23 Rx pain 90 days #360 caps bumetanide 1 mg tablet 1 mg PO DAILY Fluid 05/17/23 12/01/23 History colchicine 0.6 mg tablet 0.6 mg PO DAILYP PRN gout 05/17/23 12/01/23 History spironolactone 50 mg tablet See Rx Instructions .Route 09/24/23 12/01/23 Rx .COMPLEX #180 tabs New Prescriptions to Start Prescriptions: Allergies Allergy/AdvReac Type Severity Reaction Status Date / Time Sulfa (Sulfonamide Allergy Unknown BLISTERING Verified 02/13/23 14:42 Antibiotics) OF THROAT levofloxacin [From Levaquin] Allergy Verified 02/13/23 14:42 Exam Data for Last 24 hours Vital signs and Labs for Last 24 Hours: Temp Pulse Resp BP Pulse Ox O2 Del Method O2 Flow Rate 98.9 F 91 H 24 129/87 95 Nasal Cannula 4 12/01/23 03:29 12/01/23 03:29 12/01/23 03:29 12/01/23 03:29 12/01/23 02:31 12/01/23 03:29 12/01/23 03:29 Laboratory Results - last 24 hr 12/01/23 01:59: Urine Color Yellow, Urine Appearance Sl cloudy, Urine pH 7.5, Ur Specific [place] 1.015, Urine Protein 1+, Urine Glucose (UA) Negative, Urine Ketones Negative, Urine Blood Negative, Urine Nitrate Positive, Urine Bilirubin Negative, Urine Urobilinogen 0.2, Ur Leukocyte Esterase Negative, Urine RBC None, Urine WBC 10-20, Ur Squamous Epith Cells 5-10, Urine Bacteria 3+ 12/01/23 02:06: VBG pH 7.41, VBG pCO2 42.1, VBG pO2 28.5, VBG HCO3 26.3, VBG Total CO2 27.6 H, VBG O2 Saturation 55.5, VBG Base Excess 1.7, VBG Lactic Acid 2.0 12/01/23 02:11: WBC 6.4, RBC 4.36, Hgb 14.7, Hct 46.9, MCV 107.6 H, MCH 33.8 H, MCHC 31.4 L, RDW 15.4, Plt Count 222, MPV 8.5, Neut % (Auto) 82.9 H, Lymph % (Auto) 10.1, [place] % (Auto) 4.9, Eos % (Auto) 0.9, Baso % (Auto) 1.2, Neut # (Auto) 5.3, Lymph # (Auto) 0.7, [place] # (Auto) 0.3, Eos # (Auto) 0.1, Baso # (Auto) 0.1, Sodium 138, Potassium 4.0, Chloride 102, Carbon Dioxide 26, Anion Gap 14.0, BUN 25 H, Creatinine 1.40 H, Estimated Creat Clear 41, Estimated GFR 37 L, Est GFR ( Amer) 45 L, Glucose 205 H, Lactate 1.3, Calcium 9.6, Total Bilirubin 0.4, AST 33, ALT 31, Alkaline Phosphatase 136 H, Troponin I < 0.01, NT-Pro-B Natriuret Pep 1270 H, Total Protein 7.7, Albumin 4.7, Globulin 3.0, Albumin/Globulin Ratio 1.6 12/01/23 02:25: SARS-CoV-2 (PCR) Not detected, Influenza A Untype (PCR) Not detected, Influenza Type B (PCR) Not detected I & O for Last 24 hours: Intake & Output 11/28/23 11/29/23 11/30/23 12/01/23 23:59 23:59 23:59 23:59 Weight 68.039 kg Constitutional Constitutional: no acute distress and chronically ill appearing *Routine HEENT Exam Head: Present normocephalic and atraumatic Eye: Present EOMI and PERRL ENT: Present mucous membranes moist and mucous membranes dry *Routine Neck Exam Neck: Present full ROM and JVD *Routine Respiratory Exam Respiratory: Present wheezes and symmetric chest movement *Routine Cardiovascular Exam Cardiovascular: Present RRR *Routine Abdominal Exam Abdominal: Present soft and normoactive bowel sounds; Absent tenderness *Routine Rectal Exam Rectal:: deferred *Routine Genitalia Exam Genitalia:: deferred *Routine Extremities Exam Extremities: Present full ROM *Routine Skin Exam Skin: Present intact *Routine Neurological Exam Neurological: Present alert and oriented X3 Assessment and Plan *Assessment and plan (1) Sepsis: Status: Acute Category: Medical Code(s): A41.9 - Sepsis, unspecified organism (2) UTI (urinary tract infection): Status: Acute Category: Medical Code(s): N39.0 - Urinary tract infection, site not specified (3) COPD exacerbation: Status: Acute Category: Medical Code(s): J44.1 - Chronic obstructive pulmonary disease with (acute) exacerbation (4) Acute kidney injury: Status: Resolved Category: Medical Code(s): N17.9 - Acute kidney failure, unspecified (5) CHF (congestive heart failure): Status: Acute Category: Medical Code(s): I50.9 - Heart failure, unspecified (6) CAD (coronary artery disease): Problem Comment: APR 2022-Severe ostial mid left main disease as described Successful stenting of the ostial proximal mid distal left main artery reducing the stenosis to less than 10% giving excellent angiograph results Preserved ejection fraction Normal left ventricular end-diastolic pressure Persistent stenosis in a large posterior lateral branch which is best managed medically Status: Chronic Qualifiers: Coronary Disease-Associated Artery/Lesion type: [place] artery [place] vs. transplanted heart: [place] heart Associated angina: without angina Qualified Code(s): I25.10 - Atherosclerotic heart disease of [place] coronary artery without angina pectoris Category: Medical Code(s): I25.10 - Atherosclerotic heart disease of [place] coronary artery without angina pectoris (7) HLD (hyperlipidemia): Status: Chronic Qualifiers: Hyperlipidemia type: mixed hyperlipidemia Qualified Code(s): E78.2 - Mixed hyperlipidemia Category: Medical Code(s): E78.5 - Hyperlipidemia, unspecified (8) HTN (hypertension): Status: Chronic Qualifiers: Hypertension type: essential hypertension Qualified Code(s): I10 - Essential (primary) hypertension Category: Medical Code(s): I10 - Essential (primary) hypertension (9) PAD (peripheral artery disease): Status: Acute Category: Medical Code(s): I73.9 - Peripheral vascular disease, unspecified (10) Diabetes mellitus: Status: Acute Category: Medical Code(s): E11.9 - Type 2 diabetes mellitus without complications (11) Fibromyalgia: Status: Acute Category: Medical Code(s): M79.7 - Fibromyalgia (12) Tobacco use: Status: Chronic Category: Social Hx Code(s): Z72.0 - Tobacco use Plan 68 year old female presented to [facility] ED for c/o SOB and confusion. PMHX of COPD, CHF, HLD, HTN, DM, Fibromyalgia, and tobacco abuse. The daughter is at bedside and is main historian. The pt wears 2L of oxygen at night to sleep. Upon ED arrival she was hypoxic. She is now requiring 4L NC. The ED work up revealed a UTI with positive nitrates and chest xray with left upper lung field dense consolidation. The ED physician started the pt on zoysn and IV fluids. Her BNP was elevated @ 1270. She was given 40mg of lasix. The ED physician consulted the hospitalist team for further medical management. I admitted the pt to the medical floor. She will continue to receive IV zosyn and methylprednisone. She will also receive scheduled duonebs. I have consulted pulmonary and cardiology to assist with her inpatient care. The pt's blood work was concerning for an JUVE with creatinine of 1.4. I will repeat her kidney function this morning and monitor her electrolyte balance due to diuresis. She has blood cultures and urine culture pending. Pt is currently hemodynamically stable. The pt had an iron transfusion on Sunday for her fibromyalgia SEPSIS UTI COPDE -RR 24, HR above 90, UTI -Urine positive for nitrates and 10 to 20 WBC -Chest xray reviewed and reveals left upper lung field dense consolidation -Pulmonary consult, thank you for the help -blood cultures and urine cultures pending -Continue Zosyn for UTI/COPDE -continue methylprednisolone and duoneb's -maintain o2 above 92 % JUVE -creatinine of 1.4 -hold nephrotoxic medications -500 mL bolus given in ED CHF -BNP [id number] -Cardiology consult placed, thank you for the help!! -40 mg lasix given in the ED, will monitor for repeat bmp in the morning -strict I/O CAD HLD HTN PAD FIBROMYALGIA -awaiting medications to be verified DM -ssi -A1c pending TOBACCO ABUSE -nicotine patch prn FULL CODE DIABETIC DIET DVT: LOVENOX SQ
[2023-12-01] MEDS: GABAPENTIN 300MG CAPSULE 300 MG PO (04:39)
[2023-12-01 04:48] LABS: Hemoglobin A1C 7.3 % (4.0-6.0)
[2023-12-01 05:31] LABS: Basophils # 0.1 K/mm3 (0-0.2); Basophils % 0.8 % (0.1-2.0); Eosinophils # 0.1 K/mm3 (0.0-0.4); Eosinophils % 0.7 % (0.1-12.0); Hematocrit 41.7 % (37.0-47.0); Hemoglobin 13.6 g/dL (12.2-16.2); Lymphocytes # 0.6 K/mm3 (0.7-4.5); Lymphocytes % 8.3 % (10-50); Mean Corpuscular HGB Conc 32.6 g/dL (31.8-35.4); Mean Corpuscular Hemoglobin 34.7 pg (27.0-31.2); Mean Corpuscular Volume 106.5 fl (81-99); Mean Platelet Volume 8.4 fl (7.4-10.4); Monocytes # 0.1 K/mm3 (0.1-1.0); Monocytes % 1.9 % (1.7-9.3); Neutrophils # 6.1 K/mm3 (1.8-7.8); Neutrophils % 88.3 % (37.0-80.0); Platelet Count 199 K/mm3 (142-424); Red Blood Count 3.92 M/mm3 (4.20-5.40); Red Cell Distribution Width 15.6 % (11.5-17.5); White Blood Count 6.9 K/mm3 (4.8-10.8)
[2023-12-01 05:34] LABS: MANUAL DIFFERENTIAL MANUAL DIFFERENTIAL (MANUAL DIFF)
[2023-12-01 05:48] LABS: Anion Gap 15.7 mEq/L (5-15); Calcium 9.1 mg/dl (8.4-10.2); Carbon Dioxide 23 mmol/L (22.0-30.0); Chloride 103 mmol/L (98-107); Glucose 239 mg/dl (74-100); Lymphocytes % 10 % (10-50); Monocytes % 3 % (2-9); Neutrophils % 87 % (42-76); Potassium 3.7 mmoL/L (3.5-5.1); Sodium 138 mmol/L (136-145); Total Cells Counted 100
[2023-12-01 05:49] LABS: Macrocytosis 2+; Platelet Estimate Normal
[2023-12-01 05:52] LABS: Blood Urea Nitrogen 23 mg/dl (7-17)
[2023-12-01 05:53] LABS: Creatinine Clearance Estimated 44 mL/min (50-200); Estimated Glomerular Filt Rate 41 ml/min (>60); GFR (African American) 49 ML/MIN (>60); Troponin I < 0.01 ng/ml (0.00-0.034)
[2023-12-01] MEDS: METHYLPREDNISOLONE SOD SUCC 125MG VIAL 60 MG IV ×3 (06:02→20:53)
[2023-12-01 06:10] LABS: POC Glucose,Bedside 246 (70-110)
[2023-12-01] MEDS: humaLOG 100 UNITS/ML 3ML VIAL (SSI) SQ ×4 (06:13→21:13)
[2023-12-01] MEDS: GABAPENTIN 600MG TABLET 600 MG PO ×2 (08:52→20:52)
[2023-12-01] MEDS: ENOXAPARIN 40MG/0.4ML SYRINGE 40 MG SQ (08:53)
[2023-12-01] MEDS: NICOTINE 21MG/24HR PATCH 21 MG TD (08:53)
--- NOTE | 2023-12-01 10:40 | HMH.PHAINT1 ---
Pharmacy Intervention Comments: MEDICATION RECONCILIATION COMPLETED ON PATIENT USING EXTERNAL FILL HISTORY FROM PHARMACY. -ASUNCION JULIAN, JESSED
[2023-12-01 11:28] LABS: POC Glucose,Bedside 380 (70-110)
[2023-12-01] MEDS: PIPERACILLIN/TAZO 4.5 GM in 0.9 % SODIUM CHLORIDE 100 ML IV ×3 (11:58→22:00)
[2023-12-01 12:30] LABS: Troponin I < 0.01 ng/ml (0.00-0.034)
[2023-12-01] MEDS: ACETAMINOPHEN 500MG TAB 500 MG PO (16:07)
--- NOTE | 2023-12-01 16:23 | CT_ITS ---
PROCEDURE INFORMATION: Exam: CT Chest Without Contrast; Diagnostic Exam date and time: 12/01/2023 4:48 PM Age: 68 years old Clinical indication: Shortness of breath; Additional info: SOB, left lung cancer cancer, pna? TECHNIQUE: Imaging protocol: Diagnostic computed tomography of the chest without contrast. Radiation optimization: All CT scans at this facility use at least one of these dose optimization techniques: automated exposure control; mA and/or kV adjustment per patient size (includes targeted exams where dose is matched to clinical indication); or iterative reconstruction. COMPARISON: CR XR CHEST PORTABLE 12/01/2023 2:10 AM FINDINGS: Thyroid: There is subtle nonspecific apparent decreased attenuation within the inferior left thyroid lobe, not optimally evaluated, possibly due to adjacent artifact.. Consider further evaluation with thyroid ultrasound when the patient's condition permits. The visualized thyroid is otherwise within range of normal. Lungs: There is a new spiculated nodule in the superolateral right upper lobe measuring approximately 8 x 8.3 by 12.9 mm best seen on series 6, image 34 and series 1001, image 76. There is another somewhat spiculated nodular density in the posterior aspect of the left lower lobe measuring approximately 9.4 x 8 mm, mildly increased. There is another smudgy density with associated lucency involving the subpleural left upper lobe best seen on series 6 image 48 as well as series 1001, images 51-53, appearing mildly increased. This is difficult to measure due to its somewhat amorphous appearance. The conglomeration of lucency and nodularity measure approximately 15 x 10 mm. There are 2 small subpleural nodular densities in the superolateral posterior right upper lobe best seen on series 6, images 41, neither measuring larger than 6 mm. There is another small nodular density in this region seen on series 6, image 50 measuring approximately 2.5 mm. Mild to moderate centrilobular emphysematous changes are present. Mild right apical pleuroparenchymal linear densities suggest pleuroparenchymal scarring.Nonspecific minor bibasilar streaky opacities suggest atelectasis or parenchymal scarring. Pleural spaces: There are no pleural effusions. No pneumothorax. Heart: The heart is not enlarged. There is a trace amount of pericardial fluid. There is calcification of the mitral valve annulus. Coronary arteries: There is severe atherosclerotic calcification of the coronary arteries. Mediastinal space: There is a new cavitary and spiculated soft tissue opacity in the left upper lobe with linear densities extending radially toward the pleural surface and the superomedial mediastinum measuring approximately 5.6 x 3.5 x 3.6 cm. There is eccentric soft tissue thickening along the margin of the cavitation, most prominent medially with soft tissue density extending along the superomedial mediastinum without clear fascial distension. There is mild nodularity to the inner wall of the cavitation. Malignancy and infection should be excluded. When compared with prior study of 2017, the previously seen mildly irregular soft tissue density in this region has increased. Lymph nodes: No pathologic adenopathy. Vasculature: The aorta demonstrates moderate atherosclerotic calcification. A stent is present in the proximal left subclavian vein. Atherosclerotic vascular calcifications involve the origin of the great vessels. Evaluation of stenosis/patency is not possible without intravenous contrast. Liver: The visualized portions of the liver demonstrate punctate calcifications consistent with remote granulomatous organism exposure. Spleen: The visualized portions of the spleen demonstrate punctate calcifications, consistent with remote granulomatous organism exposure. Adrenal glands: There is a focal hypodense nodule in the right adrenal gland measuring approximately 20 x 15 mm, consistent in appearance with a benign adrenal adenoma. The left adrenal gland appears within range of normal. Bones/joints: The thoracic spine demonstrates mild degenerative changes at multiple levels. The visualized lower cervical spine demonstrates mild discogenic and spondylitic degenerative changes. There is no evidence of acute fracture. Soft tissues: No significant soft tissue edema. Other findings: Evaluation is limited by the lack of intravenous contrast. The remainder of the superior visualized intra-abdominal structures are normal. IMPRESSION: 1. Cavitary soft tissue opacity in the left upper lobe with mildly spiculated linear densities extending radially toward the adjacent pleural surface and superomedial mediastinum measuring approximately 5.6 x 3.5 x 3.6 cm. With compared with prior study, soft tissue density has increased and cavitation is new. Malignancy should be excluded. Infection is also included in the differential. Recommend pulmonary consultation. 2. Several nodular densities in the lungs bilaterally; spiculated nodule in the superolateral right upper lobe measuring approximately 8 x 8.3 by 12.9 mm is new. Mildly spiculated nodular density in the posterior aspect of the left lower lobe measuring approximately 9.4 x 8 mm has increased. Another smudgy density with associated lucency involving the subpleural left upper lobe appears increased. Differential includes metastatic disease, primary malignancy or infection. Recommend pulmonary consultation. Fleischner Society follow up recommendations for incidental nodules are not indicated. Follow up per the patient's medical condition. 3. A few additional nodular densities measuring less than 6 mm are present. Fleischner Society follow up recommendations for incidental nodules are not indicated. Follow up per the patient's medical condition. 4. Low-density nodularity to the right adrenal gland has increased in size since prior exam. Hounsfield units suggest adenoma. 6. Mild to moderate emphysematous changes COMMENTS: Consistent with the [place] [employer]'s Incidental Findings Committee white paper (J Am Babs Radiol 2017): For any incidental adrenal lesion greater than or equal to 1 cm but less than or equal to 4 cm classified in this report as benign, likely benign, or containing fat (including classification as an adenoma or myelolipoma), no follow-up imaging is recommended per consensus recommendations based on imaging criteria. Further lab evaluation could be pursued if warranted based on clinical findings.
[2023-12-01 16:26] LABS: POC Glucose,Bedside 501 (70-110)
[2023-12-01] MEDS: humaLOG 100 UNITS/ML 3ML VIAL (SSI) 8 UNIT SQ (16:33)
[2023-12-01 17:10] LABS: Glucose,Random 533 mg/dL (74-100)
[2023-12-01] MEDS: BUDESONIDE 0.5MG/2ML NEB 0.5 MG IH (18:03)
[2023-12-01] MEDS: ATORVASTATIN 20MG TABLET 20 MG PO (20:52)
[2023-12-01] MEDS: ALLOPURINOL 100MG TABLET 200 MG PO (21:12)
[2023-12-01] MEDS: COLCHICINE 0.6MG TABLET 0.599999999999999978 MG PO (21:12)
[2023-12-01] MEDS: MELATONIN 5MG TABLET 5 MG PO (21:14)
[2023-12-02] VITALS (12 sets, daily range): BP systolic 102–134; BP diastolic 52–81; PULSE 72–92; RESP 17–22; TEMP 36.6–37; O2SAT 90–96; BMI 30.2
[2023-12-02] MEDS: IPRATROPIUM/ALBUTEROL 3 ML NEB IH ×6 (01:30→22:32)
[2023-12-02] MEDS: METHYLPREDNISOLONE SOD SUCC 125MG VIAL 60 MG IV ×3 (05:23→20:58)
[2023-12-02] MEDS: PIPERACILLIN/TAZO 4.5 GM in 0.9 % SODIUM CHLORIDE 100 ML IV ×4 (05:23→21:39)
[2023-12-02] MEDS: humaLOG 100 UNITS/ML 3ML VIAL (SSI) SQ ×4 (05:23→20:57)
--- NOTE | 2023-12-02 05:29 | PC.NURSE ---
Patient has had a good night. Patient stated that she got good sleep. Patient did have to be increased to 4L NC to maintain stats above 90%. Patient is currently 92% on 4L. Patient uses the bedside with no issues and remains AxO. Other than high blood sugars no other issues were noted
[2023-12-02] MEDS: BUDESONIDE 0.5MG/2ML NEB 0.5 MG IH ×2 (06:37→18:24)
[2023-12-02] MEDS: ATENOLOL 25MG TABLET 25 MG PO (10:20)
[2023-12-02] MEDS: ENOXAPARIN 40MG/0.4ML SYRINGE 40 MG SQ (10:20)
[2023-12-02] MEDS: LORATADINE 10MG TABLET 10 MG PO (10:20)
[2023-12-02] MEDS: ALLOPURINOL 100MG TABLET 200 MG PO (10:20)
[2023-12-02] MEDS: CITALOPRAM 10MG TABLET 10 MG PO (10:20)
[2023-12-02] MEDS: ASPIRIN EC 81MG TABLET 81 MG PO (10:20)
[2023-12-02] MEDS: CLOPIDOGREL 75MG TAB 75 MG PO (10:21)
[2023-12-02] MEDS: GABAPENTIN 600MG TABLET 600 MG PO ×2 (10:21→20:58)
[2023-12-02] MEDS: NICOTINE 21MG/24HR PATCH 21 MG TD (10:31)
--- NOTE | 2023-12-02 11:38 | EXP.PN ---
Subjective *Date: 12/02/23 *Time: 11:38 Interval history: No acute events overnight. seen at bedside, denied CP, patient mentions her breathing is better, did not sleep well. I discussed results of CT chest with patient and family at bedside Exam Data for Last 24 hours Vital signs and Labs for Last 24 Hours: Temp Pulse Resp BP Pulse Ox O2 Del Method O2 Flow Rate 98.1 F 86 22 104/60 L 93 L Nasal Cannula 4 12/02/23 08:00 12/02/23 09:01 12/02/23 08:00 12/02/23 08:00 12/02/23 09:01 12/02/23 09:01 12/02/23 09:01 FiO2 28 12/01/23 18:47 Laboratory Results - last 24 hr 12/01/23 11:29: Troponin I < 0.01 12/01/23 16:10: POC Glucose 501 H* 12/01/23 16:40: Random Glucose 533 H* I & O for Last 24 hours: Intake & Output 11/29/23 11/30/23 12/01/23 12/02/23 23:59 23:59 23:59 23:59 Intake Total 450 / 650 535 / 535 Output Total 2200 / 2200 1200 / 1200 Balance -1750 / -1550 -665 / -665 Weight 72.167 kg 74.5 kg Constitutional Constitutional: no acute distress *Routine HEENT Exam Head: Present normocephalic Eye: Present EOMI and PERRL ENT: Present mucous membranes moist *Routine Neck Exam Neck: Present supple; Absent lymphadenopathy *Routine Respiratory Exam Respiratory: Present CTA bilaterally *Routine Cardiovascular Exam Cardiovascular: Present RRR *Routine Abdominal Exam Abdominal: Present soft and normoactive bowel sounds; Absent tenderness *Routine Extremities Exam Extremities: Absent cyanosis, clubbing or edema *Routine Skin Exam Skin: Present warm; Absent rash *Routine Neurological Exam Neurological: Present alert and oriented X3 Assessment and Plan *Assessment and plan (1) Sepsis: Status: Acute Category: Medical Code(s): A41.9 - Sepsis, unspecified organism (2) UTI (urinary tract infection): Status: Acute Category: Medical Code(s): N39.0 - Urinary tract infection, site not specified (3) COPD exacerbation: Status: Acute Category: Medical Code(s): J44.1 - Chronic obstructive pulmonary disease with (acute) exacerbation (4) Acute kidney injury: Status: Resolved Category: Medical Code(s): N17.9 - Acute kidney failure, unspecified (5) CHF (congestive heart failure): Status: Acute Category: Medical Code(s): I50.9 - Heart failure, unspecified (6) CAD (coronary artery disease): Problem Comment: APR 2022-Severe ostial mid left main disease as described Successful stenting of the ostial proximal mid distal left main artery reducing the stenosis to less than 10% giving excellent angiograph results Preserved ejection fraction Normal left ventricular end-diastolic pressure Persistent stenosis in a large posterior lateral branch which is best managed medically Status: Chronic Qualifiers: Coronary Disease-Associated Artery/Lesion type: cheesh[place]na artery [place] vs. transplanted heart: cheesh-na heart Associated angina: without angina Qualified Code(s): I25.10 - Atherosclerotic heart disease of cheesh-na coronary artery without angina pectoris Category: Medical Code(s): I25.10 - Atherosclerotic heart disease of cheesh-na coronary artery without angina pectoris (7) HLD (hyperlipidemia): Status: Chronic Qualifiers: Hyperlipidemia type: mixed hyperlipidemia Qualified Code(s): E78.2 - Mixed hyperlipidemia Category: Medical Code(s): E78.5 - Hyperlipidemia, unspecified (8) HTN (hypertension): Status: Chronic Qualifiers: Hypertension type: essential hypertension Qualified Code(s): I10 - Essential (primary) hypertension Category: Medical Code(s): I10 - Essential (primary) hypertension (9) PAD (peripheral artery disease): Status: Acute Category: Medical Code(s): I73.9 - Peripheral vascular disease, unspecified (10) Diabetes mellitus: Status: Acute Category: Medical Code(s): E11.9 - Type 2 diabetes mellitus without complications (11) Fibromyalgia: Status: Acute Category: Medical Code(s): M79.7 - Fibromyalgia (12) Tobacco use: Status: Chronic Category: Social Hx Code(s): Z72.0 - Tobacco use Plan 68 year old female presented to [facility] ED for c/o SOB and confusion. PMHX of COPD, CHF, HLD, HTN, DM, Fibromyalgia, and tobacco abuse. The daughter is at bedside and is main historian. The pt wears 2L of oxygen at night to sleep. Upon ED arrival she was hypoxic. She is now requiring 4L NC. The ED work up revealed a UTI with positive nitrates and chest xray with left upper lung field dense consolidation. The ED physician started the pt on zoysn and IV fluids. Her BNP was elevated @ 1270. She was given 40mg of lasix. The ED physician consulted the hospitalist team for further medical management. I admitted the pt to the medical floor. She will continue to receive IV zosyn and methylprednisone. She will also receive scheduled duonebs. I have consulted pulmonary and cardiology to assist with her inpatient care. The pt's blood work was concerning for an JUVE with creatinine of 1.4. I will repeat her kidney function this morning and monitor her electrolyte balance due to diuresis. She has blood cultures and urine culture pending. Pt is currently hemodynamically stable. The pt had an iron transfusion on Sunday for her fibromyalgia SEPSIS UTI COPDE lung cancer -Chest xray reviewed and reveals left upper lung field dense consolidation -Pulmonary consult, CT chest shows cavitary lung lesion, per patient she is in cancer remission, she also has new nodules in her lungs and adrenal gland CT Chest Cavitary soft tissue opacity in the left upper lobe with mildly spiculated linear densities extending radially toward the adjacent pleural surface and superomedial mediastinum measuring approximately 5.6 x 3.5 x 3.6 cm. With compared with prior study, soft tissue density has increased and cavitation is new -blood cultures and urine cultures pending - NGTD -Continue Zosyn for UTI/COPDE -continue methylprednisolone and duoneb's -maintain o2 above 92 % JUVE -creatinine of 1.4 -hold nephrotoxic medications CHF -Cardiology consult placed -40 mg lasix x1 given in the ED -strict I/O CAD HLD HTN PAD FIBROMYALGIA -awaiting medications to be verified DM -ssi TOBACCO ABUSE -nicotine patch prn FULL CODE DIABETIC DIET DVT: LOVENOX SQ continue IV abx, consult pulmonary for lung cavitation, patient has known history of lung cancer but in remission
[2023-12-02 12:02] LABS: POC Glucose,Bedside 392 (70-110)
[2023-12-02 16:31] LABS: POC Glucose,Bedside 202 (70-110)
--- NOTE | 2023-12-02 17:11 | PC.NURSE ---
Patient still requiring 4L oxygen this shift. Patient a&ox4 and has a decreased work of breathing compared to 12/01/23. Patient tolerating antibiotics and steroid treatment. VSS.
[2023-12-02 20:58] LABS: POC Glucose,Bedside 393 (70-110)
[2023-12-02] MEDS: COLCHICINE 0.6MG TABLET 0.599999999999999978 MG PO (20:58)
[2023-12-02] MEDS: MELATONIN 5MG TABLET 5 MG PO (20:58)
[2023-12-02] MEDS: ATORVASTATIN 20MG TABLET 20 MG PO (20:58)
[2023-12-03] VITALS (11 sets, daily range): BP systolic 94–132; BP diastolic 49–72; PULSE 59–92; RESP 16–22; TEMP 36.6–37.1; O2SAT 90–94; BMI 29.9
[2023-12-03] MEDS: IPRATROPIUM/ALBUTEROL 3 ML NEB IH ×6 (02:25→22:45)
--- NOTE | 2023-12-03 05:19 | PC.NURSE ---
Patient has had a good shift. Has been able to sleep most of the shift. Patient only complaint all shift was that she was shaky due to the steroids she stated. no other issues noted by the patient. She remains on 4L NC.
[2023-12-03 05:28] LABS: POC Glucose,Bedside 251 (70-110)
[2023-12-03] MEDS: PIPERACILLIN/TAZO 4.5 GM in 0.9 % SODIUM CHLORIDE 100 ML IV (05:28)
[2023-12-03] MEDS: METHYLPREDNISOLONE SOD SUCC 125MG VIAL 60 MG IV (05:29)
[2023-12-03] MEDS: humaLOG 100 UNITS/ML 3ML VIAL (SSI) SQ ×3 (05:29→16:57)
[2023-12-03] MEDS: BUDESONIDE 0.5MG/2ML NEB 0.5 MG IH ×2 (06:18→18:24)
[2023-12-03 07:31] LABS: Basophils # 0.1 K/mm3 (0-0.2); Basophils % 0.6 % (0.1-2.0); Eosinophils % 0.1 % (0.1-12.0); Hematocrit 40.7 % (37.0-47.0); Hemoglobin 12.6 g/dL (12.2-16.2); Lymphocytes # 0.9 K/mm3 (0.7-4.5); Lymphocytes % 6.2 % (10-50); Mean Corpuscular HGB Conc 30.9 g/dL (31.8-35.4); Mean Corpuscular Hemoglobin 33.4 pg (27.0-31.2); Mean Platelet Volume 8.9 fl (7.4-10.4); Monocytes # 0.3 K/mm3 (0.1-1.0); Monocytes % 2.3 % (1.7-9.3); Neutrophils # 13.1 K/mm3 (1.8-7.8); Neutrophils % 90.8 % (37.0-80.0); Platelet Count 216 K/mm3 (142-424); Red Blood Count 3.77 M/mm3 (4.20-5.40); Red Cell Distribution Width 15.7 % (11.5-17.5); White Blood Count 14.5 K/mm3 (4.8-10.8)
[2023-12-03 07:41] LABS: MANUAL DIFFERENTIAL MANUAL DIFFERENTIAL (MANUAL DIFF)
[2023-12-03 07:55] LABS: Albumin Level 3.9 g/dl (3.5-5.0); Albumin/Globulin Ratio 1.5 (1.1-1.8); Alkaline Phosphatase 79 U/L (38-126); Bilirubin,Total 0.3 mg/dl (0.2-1.3); Blood Urea Nitrogen 30 mg/dl (7-17); Calcium 7.5 mg/dl (8.4-10.2); Carbon Dioxide 23 mmol/L (22.0-30.0); Chloride 106 mmol/L (98-107); Creatinine Clearance Estimated 48 mL/min (50-200); Estimated Glomerular Filt Rate 41 ml/min (>60); GFR (African American) 49 ML/MIN (>60); Globulin 2.6 g/dL (1.3-3.2); Glucose 255 mg/dl (74-100); Magnesium 2.5 mg/dl (1.6-2.3); Sodium 140 mmol/L (136-145); Total Protein,Serum 6.5 g/dl (6.3-8.2)
--- NOTE | 2023-12-03 07:55 | P.CONPHA_ITS ---
Pharmacy Consult Date: 12/03/23 Time: 07:55 Referring provider: DR. ROGERS Reason for Consult:: VANCOMYCIN DOSING Allergies Allergy/AdvReac Type Severity Reaction Status Date / Time Sulfa (Sulfonamide Allergy Unknown BLISTERING Verified 02/13/23 14:42 Antibiotics) OF THROAT levofloxacin [From Levaquin] Allergy Verified 02/13/23 14:42 Home Medications Medication Instructions Recorded Confirmed Type atorvastatin 20 mg tablet 20 mg PO HS Cholesterol 90 days 10/26/17 12/01/23 History ##90 cetirizine 10 mg tablet 10 mg PO DAILY Allergy symptoms 30 10/26/17 12/01/23 History days ##30 clopidogrel 75 mg tablet 75 mg PO DAILY platelet inhibitor 10/26/17 12/01/23 History 90 days ##90 metformin 1,000 mg tablet 1,000 mg PO BIDWMEAL Diabetes 90 10/26/17 12/01/23 History days ##180 aspirin 81 mg tablet,delayed 81 mg PO DAILY Heart health 05/06/18 12/01/23 History release atenolol 25 mg tablet 25 mg PO DAILY Heart rate/Blood 06/03/20 12/01/23 History pressure escitalopram oxalate 5 mg tablet 5 mg PO DAILY mood 06/03/20 12/01/23 History ipratropium 0.5 mg-albuterol 3 mg 3 ml inhalation QIDP PRN Shortness 05/03/22 12/01/23 History (2.5 mg base)/3 mL nebulization Of Breath soln allopurinol 100 mg tablet 200 mg PO DAILY Gout 12/27/22 12/01/23 History fluticasone fur. 100 mcg-umeclid 1 inh inhalation DAILY COPD 01/17/23 12/01/23 History 62.5 mcg-vilant 25 mcg inhalat.powder (Trelegy Ellipta) azithromycin 250 mg tablet 250 mg PO MOWEFR COPD 01/29/23 12/01/23 History gabapentin 300 mg capsule 600 mg (2 x 300 mg) PO BID Nerve 02/02/23 12/01/23 Rx pain 90 days #360 caps colchicine 0.6 mg tablet 0.6 mg PO DAILYP PRN gout 05/17/23 12/01/23 History bumetanide 1 mg tablet 1 mg PO BID Fluid 12/01/23 12/01/23 History spironolactone 50 mg tablet 50 mg PO BID Fluid 12/01/23 12/01/23 History New Prescriptions to Start Prescriptions: Height: 1.57 m Weight: 73.7 kg Laboratory Results:: Laboratory Results - last 24 hr 12/02/23 11:54: POC Glucose 392 H* 12/02/23 16:16: POC Glucose 202 H 12/02/23 20:50: POC Glucose 393 H* 12/03/23 05:22: POC Glucose 251 H 12/03/23 06:53: WBC 14.5 H D, RBC 3.77 L, Hgb 12.6, Hct 40.7, MCV 108.0 H, MCH 33.4 H, MCHC 30.9 L, RDW 15.7, Plt Count 216, MPV 8.9, Neut % (Auto) 90.8 H, Ly mph % (Auto) 6.2 L, [place] % (Auto) 2.3, Eos % (Auto) 0.1, Baso % (Auto) 0.6, Neut # (Auto) 13.1 H, Lymph # (Auto) 0.9, [place] # (Auto) 0.3, Eos # (Auto) 0.0, Baso # (Auto) 0.1 Medical History: Medical History (Updated 12/01/23 @ 04:19 by MEDHAT Koehler) Acute respiratory failure with hypoxia Pneumonia due to COVID-19 virus Diabetes mellitus Diastolic dysfunction HLD (hyperlipidemia) HTN (hypertension) Subclavian artery stenosis, left PAD (peripheral artery disease) Tobacco use History of placement of stent in LAD coronary artery CAD (coronary artery disease) COPD (chronic obstructive pulmonary disease) ACUÑA (dyspnea on exertion) Assessment and Plan Assessment and plan all Dx Assessment and Plan for all problems:: Pharmacokinetic dosing service Objective: Patient: Floor: Age: 68 yo Serum creatinine: 1.30 mg/dL Height: 61.8 Inches Weight (kg): 73.7 Assessment: IBW (kg): 49.64 Dosing wt(kg): 73.7 Estimated Creatinine clearance (ml/min): 32.5 CRCL method: Cockcroft and Gault using ibw(default). Drug selected: Vancomycin Loading dose (mg): Vd (liters): 59.0 (factor used: 0.8 L/kg) Augustine (hr-1): 0.031 Half life (hrs): 22.36 CLvanco=?? 1.829 L/hr Recommended dose: 1000 mg Interval: 24 hrs Infusion time (hrs): 2.0 Predicted peak (mcg/mL): 31.3 Predicted trough (mcg/mL): 15.83 Total body weight is being used for vancomycin dosing. Recommendations: Give Vancomycin 1000 mg q 24 hrs with an expected Cpeak of 31.3 mcg/ml and an expected Ctrough of 15.83 mcg/ml AUC 0-24 /GUIDO Data: GUIDO 0.5 mcg/mL:?? AUC/GUIDO:? 1093.5 GUIDO 1.0 mcg/mL:?? AUC/GUIDO:? 546.7 --------- GUIDO 1.5 mcg/mL:?? AUC/GUIDO:? 364.5 GUIDO 2.0 mcg/mL:?? AUC/GUIDO:? 273.4 Thank you for the consult, will continue to follow. -ASUNCION JULIAN, JESSED
[2023-12-03 07:56] LABS: Alanine Aminotransferase 45 U/L (12-78); Aspartate Amino Transferase 42 U/L (14-36)
[2023-12-03 08:35] LABS: Anion Gap 14.4 mEq/L (5-15); Potassium 3.4 mmoL/L (3.5-5.1)
--- NOTE | 2023-12-03 08:36 | CA_ITS ---
APPROVED REPORT EXAM: Comprehensive 2D, Doppler, and color-flow Echocardiogram Production Tech: Mariya Monet CRT Ht: 5 ft 1 in Wt: 162lbs BSA: 1.73 BP: 129/87 mmHg Indications: COPD, Diabetes, CAD, Hyperlipidemia, Hypertension/HDD. smoker, history of pneumonia 2D Dimensions LA Volume 56.80 mL LA Volume Index 32.10 mL/m2 (M/F) 16-34 M-Mode Dimensions RVDd 3.61 cm (0.9-2.6) LA Diam 3.77 cm (1.9-4.0) LVDd 4.98 cm (3.5-5.7) LVDs 3.23 cm (3.5-5.7) IVSd 1.22 cm (0.6-1.1) PWd 0.57 cm (0.6-1.1) EF (Teich) 64.20% FS 35.10% EDV (Teich) 117.10 mL TAPSE 2.48 (<1.7) ESV (Teich) 41.90 mL LV Diastology E Decel Time 150 (160-240 msec) E/A Ratio 1.34 MED A' 9.70 cm/s LAT A' 13.00 cm/s Aortic Valve TAMMI Index 1.50 cm2/m2 AoV Peak Ramirez. 166.0 (50-130 cm/s) AO Peak GR. 11.00 mmHg AO Mean GR. 5.60 (<5 mmHg) AO VTI 36.7 (18-25 cm) TAMMI (VTI) 2.66 (2.5-4.5 cm2) Mitral Valve MV E Max Ramirez. 115.0 (40-130 cm/s) MV A Velocity 86.0 (40-130 cm/s) E/A Ratio 1.34 MV PHT 44.0 ms Pulmonary Valve PV Peak Velocity 44.0 (50-150 cm/s) Tricuspid Valve TR P. Velocity 108.00 cm/s RAP Estimate 10.00 mmHg RVSP 14.70 mmHg Left Ventricle The left ventricle is normal size. The left ventricular systolic function is normal. The left ventricular ejection fraction is within the normal range. There is increased left ventricular wall thickness. There is normal LV segmental wall motion. Grade 2 diastolic dysfunction. LVEF is 55%. Right Ventricle The right ventricle is normal size. The right ventricular systolic function is normal. Atria The left atrium size is mildly dilated. The right atrium size is normal. There is no Doppler evidence of interatrial shunt. Aortic Valve The aortic valve is mildly thickened. There is no aortic valvular stenosis. No aortic regurgitation is present. Mitral Valve The mitral valve leaflets are mildly thickened. No evidence of mitral valve stenosis. Mild mitral regurgitation. Tricuspid Valve The tricuspid valve leaflets are thin and pliable. Trace tricuspid regurgitation. There is insufficient TR jet to estimate RVSP. Pulmonic Valve The pulmonary valve is normal in structure. Trace pulmonic regurgitation. Great Vessels The aortic root is normal in size. The ascending aorta is normal in size. IVC is normal in size and collapses >50% with inspiration. Pericardium There is no pericardial effusion. Other Information Study Quality: Fair Conclusion Normal biventricular systolic function. Grade 2 diastolic dysfunction. Mildly dilated LA. Mild MR. Compared to prior study from 01/01/2023, there is no significant change. Electronically signed by : Ailin Reid MD 12/04/2023 00:13:15
[2023-12-03 08:47] LABS: Lymphocytes % 10 % (10-50); Monocytes % 4 % (2-9); Neutrophils % 86 % (42-76); Total Cells Counted 100
[2023-12-03 08:48] LABS: Macrocytosis 1+; Platelet Estimate Normal
[2023-12-03] MEDS: VANCOMYCIN HCL 1,000 MG in 0.9 % SODIUM CHLORIDE 250 ML 125 MG IV (08:50)
[2023-12-03] MEDS: ASPIRIN EC 81MG TABLET 81 MG PO (08:50)
[2023-12-03] MEDS: ATENOLOL 25MG TABLET 25 MG PO (08:50)
[2023-12-03] MEDS: ENOXAPARIN 40MG/0.4ML SYRINGE 40 MG SQ (08:51)
[2023-12-03] MEDS: CLOPIDOGREL 75MG TAB 75 MG PO (08:51)
[2023-12-03] MEDS: CITALOPRAM 10MG TABLET 10 MG PO (08:51)
[2023-12-03] MEDS: GABAPENTIN 600MG TABLET 600 MG PO ×2 (08:51→20:48)
[2023-12-03] MEDS: LORATADINE 10MG TABLET 10 MG PO (08:51)
[2023-12-03] MEDS: ALLOPURINOL 100MG TABLET 200 MG PO (08:51)
[2023-12-03 09:21] LABS: NT Pro Brain Natriuretic Pep. 6010 pg/mL (0-125)
--- NOTE | 2023-12-03 09:55 | EXP.PULM.CON ---
History of Present Illness History of present illness: Ms. Rivers is a 68-year-old female with reported history of COPD CHF hypertension, history of non-small cell lung cancer status post left upper lobe radiation 2014 last seen by pulmonary as an inpatient consult in November 2022 presented to the ER with worsening respiratory distress and confusion and pulmonary was called for further evaluation and management. [facility] Disclaimer: The information contained in this section may have been updated after the patient was seen, as this information can be updated by other users. Medical History (Updated 12/03/23 @ 11:27 by Earle Brewer MD) Acute and chronic respiratory failure with hypoxia Acute respiratory failure with hypoxia Pneumonia due to COVID-19 virus Diabetes mellitus Diastolic dysfunction HLD (hyperlipidemia) HTN (hypertension) Subclavian artery stenosis, left PAD (peripheral artery disease) Tobacco use History of placement of stent in LAD coronary artery CAD (coronary artery disease) COPD (chronic obstructive pulmonary disease) ACUÑA (dyspnea on exertion) Surgical History Hx of right coronary artery stent placement Family History Other No significant family history Social History (Updated 12/01/23 @ 04:31 by Marnie Doyle RN) Smoking Status: Current every day smoker tobacco type: cigarettes packs per day: 1 second hand exposure: No alcohol intake: never substance use type: denies use current occupational status: retired Travel in the last 8 weeks: None household members: none housing: house current occupational exposures/hazards: No caffeine: Yes Review of Systems Constitutional Constitutional: Reports anorexia, Reports body ache(s) and Reports fatigue Eyes Eyes: Denies eye discharge, Denies dry eyes, Denies irritation and Denies itchy eyes ENT Ears, Nose, Mouth, and Throat: Denies epistaxis, Denies facial pain, Denies lip swelling and Denies throat swelling *Cardiovascular Cardiovascular: Reports dyspnea and Reports dyspnea on exertion *Respiratory Respiratory: Reports chest congestion, Reports cough, Reports dyspnea, Reports dyspnea on exertion, Denies excessive phlegm production and Denies wheezing *Gastrointestinal Gastrointestinal: Denies abdominal pain, Denies belching and Denies cramping *Musculoskeletal Musculoskeletal: Reports back pain, Reports myalgias and Reports other (No small joint swelling or Pain) *Neurologic Neurologic: Reports confusion Psychiatric Psychiatric: Reports confusion, Denies homicidal ideation and Denies suicidal ideation Endocrine Endocrine: Reports fatigue and Denies heat intolerance Hematologic/Lymphatic Hematologic/Lymphatic: Denies easy bleeding and Denies lymphadenopathy Allergic/Immunologic Allergic/Immunologic: Denies itchy eyes, Denies lip swelling, Denies throat swelling and Denies wheezing Pulmonology Exam Inpatient Vital signs and Labs for Last 24 Hours: Temp Pulse Resp BP Pulse Ox O2 Del Method O2 Flow Rate 98.8 F 79 22 126/69 90 L Nasal Cannula 4 12/03/23 07:30 12/03/23 09:30 12/03/23 07:30 12/03/23 07:30 12/03/23 09:30 12/03/23 09:30 12/03/23 09:30 FiO2 28 12/01/23 18:47 Laboratory Results - last 24 hr 12/02/23 11:54: POC Glucose 392 H* 12/02/23 16:16: POC Glucose 202 H 12/02/23 20:50: POC Glucose 393 H* 12/03/23 05:22: POC Glucose 251 H 12/03/23 06:53: WBC 14.5 H D, RBC 3.77 L, Hgb 12.6, Hct 40.7, MCV 108.0 H, MCH 33.4 H, MCHC 30.9 L, RDW 15.7, Plt Count 216, MPV 8.9, Neut % (Auto) 90.8 H, Lymph % (Auto) 6.2 L, [place] % (Auto) 2.3, Eos % (Auto) 0.1, Baso % (Auto) 0.6, Neut # (Auto) 13.1 H, Lymph # (Auto) 0.9, [place] # (Auto) 0.3, Eos # (Auto) 0.0, Baso # (Auto) 0.1, Total Counted 100, Neutrophils % (Manual) 86 H, Lymphocytes % (Manual) 10, Monocytes % (Manual) 4, Platelet Estimate Normal, Macrocytosis 1+, Sodium 140, Potassium 3.4 L, Chloride 106, Carbon Dioxide 23, Anion Gap 14.4, BUN 30 H D, Creatinine 1.30 H, Estimated Creat Clear 48, Estimated GFR 41 L, Est GFR ( Amer) 49 L, Glucose 255 H, Calcium 7.5 L, Magnesium 2.5 H, Total Bilirubin 0.3, AST 42 H D, ALT 45 D, Alkaline Phosphatase 79, NT-Pro-B Natriuret Pep 6010 H, Total Protein 6.5, Albumin 3.9, Globulin 2.6, Albumin/Globulin Ratio 1.5 I & O for Labs for Last 24 Hours: Intake & Output 11/30/23 12/01/23 12/02/23 12/03/23 23:59 23:59 23:59 23:59 Intake Total 450 / 650 1445 / 1545 350 / 350 Output Total 2200 / 2200 2600 / 2800 700 / 700 Balance -1750 / -1550 -1155 / -1255 -350 / -350 Weight 159 lb 1.6 oz 164 lb 3.91 oz 162 lb 7.691 oz Constitutional: Present moderate distress Head: Present normocephalic and atraumatic ENT: Present normal exam, normal oropharynx and mucous membranes moist Neck: Present normal inspection and full ROM Respiratory: Present respiratory distress and able to speak in complete sentences; Absent wheezes Cardiac: Present S1/S2, Tachycardia and radial pulses present GI: Present soft and distention; Absent tenderness or guarding Rectal (female): Present deferred (female): Present deferred Skin: Present intact; Absent cyanosis or jaundice Neuro: Present alert, awake and oriented x 3 Extremities: Present normal inspection; Absent clubbing or cyanosis Psychiatric: Present normal affect and cooperative Meds Home Medications and Allergies Home Medications Medication Instructions Recorded Confirmed Type atorvastatin 20 mg tablet 20 mg PO HS Cholesterol 90 days 10/26/17 12/01/23 History ##90 cetirizine 10 mg tablet 10 mg PO DAILY Allergy symptoms 30 10/26/17 12/01/23 History days ##30 clopidogrel 75 mg tablet 75 mg PO DAILY platelet inhibitor 10/26/17 12/01/23 History 90 days ##90 metformin 1,000 mg tablet 1,000 mg PO BIDWMEAL Diabetes 90 10/26/17 12/01/23 History days ##180 aspirin 81 mg tablet,delayed 81 mg PO DAILY Heart health 05/06/18 12/01/23 History release atenolol 25 mg tablet 25 mg PO DAILY Heart rate/Blood 06/03/20 12/01/23 History pressure escitalopram oxalate 5 mg tablet 5 mg PO DAILY mood 06/03/20 12/01/23 History ipratropium 0.5 mg-albuterol 3 mg 3 ml inhalation QIDP PRN Shortness 05/03/22 12/01/23 History (2.5 mg base)/3 mL nebulization Of Breath soln allopurinol 100 mg tablet 200 mg PO DAILY Gout 12/27/22 12/01/23 History fluticasone fur. 100 mcg-umeclid 1 inh inhalation DAILY COPD 01/17/23 12/01/23 History 62.5 mcg-vilant 25 mcg inhalat.powder (Trelegy Ellipta) azithromycin 250 mg tablet 250 mg PO MOWEFR COPD 01/29/23 12/01/23 History gabapentin 300 mg capsule 600 mg (2 x 300 mg) PO BID Nerve 02/02/23 12/01/23 Rx pain 90 days #360 caps colchicine 0.6 mg tablet 0.6 mg PO DAILYP PRN gout 05/17/23 12/01/23 History bumetanide 1 mg tablet 1 mg PO BID Fluid 12/01/23 12/01/23 History spironolactone 50 mg tablet 50 mg PO BID Fluid 12/01/23 12/01/23 History New Prescriptions to Start Prescriptions: Allergies Allergy/AdvReac Type Severity Reaction Status Date / Time Sulfa (Sulfonamide Allergy Unknown BLISTERING Verified 02/13/23 14:42 Antibiotics) OF THROAT levofloxacin [From Levaquin] Allergy Verified 02/13/23 14:42 Results Laboratory Findings 12/03/23 06:53 12/03/23 06:53 Abnormal lab findings: Abnormal Labs 12/01/23 12/01/23 12/01/23 02:06 02:11 05:20 WBC RBC 3.92 L MCV 107.6 H 106.5 H MCH 33.8 H 34.7 H MCHC 31.4 L Neut % (Auto) 82.9 H 88.3 H Lymph % (Auto) 8.3 L Neut # (Auto) Lymph # (Auto) 0.6 L Neutrophils % (Manual) 87 H VBG Total CO2 27.6 H Potassium Anion Gap 15.7 H BUN 25 H 23 H Creatinine 1.40 H 1.30 H Estimated GFR 37 L 41 L Est GFR ( Amer) 45 L 49 L Glucose 205 H 239 H POC Glucose Random Glucose Hemoglobin A1c 7.3 H Calcium Magnesium AST Alkaline Phosphatase 136 H NT-Pro-B Natriuret Pep 1270 H 12/01/23 12/01/23 12/01/23 05:59 11:21 16:10 WBC RBC MCV MCH MCHC Neut % (Auto) Lymph % (Auto) Neut # (Auto) Lymph # (Auto) Neutrophils % (Manual) VBG Total CO2 Potassium Anion Gap BUN Creatinine Estimated GFR Est GFR ( Amer) Glucose POC Glucose 246 H 380 H* 501 H* Random Glucose Hemoglobin A1c Calcium Magnesium AST Alkaline Phosphatase NT-Pro-B Natriuret Pep 12/01/23 12/02/23 12/02/23 16:40 11:54 16:16 WBC RBC MCV MCH MCHC Neut % (Auto) Lymph % (Auto) Neut # (Auto) Lymph # (Auto) Neutrophils % (Manual) VBG Total CO2 Potassium Anion Gap BUN Creatinine Estimated GFR Est GFR ( Amer) Glucose POC Glucose 392 H* 202 H Random Glucose 533 H* Hemoglobin A1c Calcium Magnesium AST Alkaline Phosphatase NT-Pro-B Natriuret Pep 12/02/23 12/03/23 12/03/23 20:50 05:22 06:53 WBC 14.5 H D RBC 3.77 L MCV 108.0 H MCH 33.4 H MCHC 30.9 L Neut % (Auto) 90.8 H Lymph % (Auto) 6.2 L Neut # (Auto) 13.1 H Lymph # (Auto) Neutrophils % (Manual) 86 H VBG Total CO2 Potassium 3.4 L Anion Gap BUN 30 H D Creatinine 1.30 H Estimated GFR 41 L Est GFR ( Amer) 49 L Glucose 255 H POC Glucose 393 H* 251 H Random Glucose Hemoglobin A1c Calcium 7.5 L Magnesium 2.5 H AST 42 H D Alkaline Phosphatase NT-Pro-B Natriuret Pep 6010 H Assessment and Plan *Assessment and plan (1) Acute and chronic respiratory failure with hypoxia: Status: Acute Category: Medical Code(s): J96.21 - Acute and chronic respiratory failure with hypoxia (2) Pneumonia: Status: Acute Category: Medical Code(s): J18.9 - Pneumonia, unspecified organism Plan Ms. Rivers is a 68-year-old female with reported history of COPD CHF hypertension, history of non-small cell lung cancer status post left upper lobe radiation 2014 last seen by pulmonary as an inpatient consult in November 2022 presented to the ER with worsening respiratory distress and confusion and pulmonary was called for further evaluation and management. Neutrophilic leukocytosis. Worsening since admission. Needing 4 L nasal cannula oxygen supplementation. Febrile. Hemodynamically stable. VBG upon admission did not show any evidence of hypoxic/hypercarbic respiratory failure. Patient also being managed for UTI CT chest without contrast on admission reviewed, left upper lobe abnormality at 5.6 cm in size followed by multiple pulmonary nodules. Previous patient previously followed Dr. Alhaji DELEON advised oncology, have not seen in the last 12 months. Patient admission was initiated on vancomycin and Zosyn, nebulization therapies along with steroids. Plan: Continue current antibiotics will review patient's prior imaging to determine the noted left upper lobe abnormality is postradiation scarring/acute/infectious etiology. Follow with culture results Continue DuoNebs every 6 hours along with Pulmicort every 12 scheduled Continue nasal cannula oxygen supplementation to maintain O2 saturation below 90% and above. Wean strategy prednisone 40 mg daily
[2023-12-03] MEDS: BUMETANIDE 1 MG TABLET PO ×2 (11:36→16:49)
[2023-12-03] MEDS: PIPERACILLIN/TAZO 3.375 GM in 0.9 % SODIUM CHLORIDE 50 ML IV ×3 (11:36→23:14)
[2023-12-03 11:47] LABS: POC Glucose,Bedside 347 (70-110)
--- NOTE | 2023-12-03 11:50 | EXP.CARD.CON ---
History of Present Illness History of Present Illness Consult date: 12/03/23 Requesting physician: Herlinda Do Consult reason: congestive heart failure Chief complaint: AMS, SOA History of present illness: 68-year-old white female with history of CAD status post PCI in 2021, she also has HFpEF, COPD with ongoing tobacco use, diabetes, hypertension, known history of left upper lobe lung cancer historically followed at [facility]. Patient states she has chronic shortness of breath at her baseline but does not recall any specific changes or worsening in the past 6 months to 1 year. States she went out to eat Sunday night and had some mild altered mental status and then later in the evening was disoriented. She was brought to the emergency room where she required 4 L nasal cannula, positive for UTI and left upper lobe dense consolidation, proBNP 1270, creatinine 1.4, glucose 500, she met sepsis criteria and got 500 mL normal saline bolus. CT chest showed 5 cm cavitary spiculated mass measuring 5.6 x 3.5 x 3.6. Compared to prior study the density has increased and cavitation is new. Malignancy should be excluded. She also has several nodular densities in the lungs bilaterally which are new compared with prior imaging here. Patient states she was followed at [facility] and was not a surgical candidate due to mass proximal to aorta. She had 3 focused radiation treatments and states she was not offered chemo. Was undergoing routine CT imaging but states her last visit was approximately 1 year ago. We are consulted for CHF. Patient had an echo December 2022 read by [facility] with EF 50 to 55%, grade 2 diastolic dysfunction, elevated filling pressures, severe LA dilation. Here she has proBNP 1270 although repeat this morning is 6000, no edema noted on chest x-ray or CT scan. She denies peripheral edema. [facility] Disclaimer: The information contained in this section may have been updated after the patient was seen, as this information can be updated by other users. Medical History Acute and chronic respiratory failure with hypoxia Acute respiratory failure with hypoxia Pneumonia due to COVID-19 virus Diabetes mellitus Diastolic dysfunction HLD (hyperlipidemia) HTN (hypertension) Subclavian artery stenosis, left PAD (peripheral artery disease) Tobacco use History of placement of stent in LAD coronary artery CAD (coronary artery disease) COPD (chronic obstructive pulmonary disease) ACUÑA (dyspnea on exertion) Surgical History Hx of right coronary artery stent placement Family History Other No significant family history Social History Smoking Status: Current every day smoker tobacco type: cigarettes packs per day: 1 second hand exposure: No alcohol intake: never substance use type: denies use current occupational status: retired Travel in the last 8 weeks: None household members: none housing: house current occupational exposures/hazards: No caffeine: Yes Review of Systems Constitutional Constitutional: Reports fatigue and Reports weakness Eyes Eyes: Denies loss of vision ENT Ears, Nose, Mouth, and Throat: Denies hearing loss *Cardiovascular Cardiovascular: Denies chest pain and Reports dyspnea *Respiratory Respiratory: Reports cough, Reports dyspnea and Reports wheezing *Gastrointestinal Gastrointestinal: Denies change in stool character, Denies nausea and Denies vomiting *Musculoskeletal Musculoskeletal: Denies muscle weakness Integumentary/Breasts Skin/Breast: Denies changing lesions *Neurologic Neurologic: Reports confusion, Denies loss of vision and Reports weakness Psychiatric Psychiatric: Reports confusion Endocrine Endocrine: Reports fatigue Allergic/Immunologic Allergic/Immunologic: Reports wheezing Exam Data for Last 24 hours Vital signs and Labs for Last 24 Hours: Temp Pulse Resp BP Pulse Ox O2 Del Method O2 Flow Rate 98.8 F 79 22 126/69 90 L Nasal Cannula 4 12/03/23 07:30 12/03/23 09:30 12/03/23 07:30 12/03/23 07:30 12/03/23 09:30 12/03/23 09:30 12/03/23 09:30 FiO2 28 12/01/23 18:47 Laboratory Results - last 24 hr 12/02/23 11:54: POC Glucose 392 H* 12/02/23 16:16: POC Glucose 202 H 12/02/23 20:50: POC Glucose 393 H* 12/03/23 05:22: POC Glucose 251 H 12/03/23 06:53: WBC 14.5 H D, RBC 3.77 L, Hgb 12.6, Hct 40.7, MCV 108.0 H, MCH 33.4 H, MCHC 30.9 L, RDW 15.7, Plt Count 216, MPV 8.9, Neut % (Auto) 90.8 H, Lymph % (Auto) 6.2 L, [place] % (Auto) 2.3, Eos % (Auto) 0.1, Baso % (Auto) 0.6, Neut # (Auto) 13.1 H, Lymph # (Auto) 0.9, [place] # (Auto) 0.3, Eos # (Auto) 0.0, Baso # (Auto) 0.1, Total Counted 100, Neutrophils % (Manual) 86 H, Lymphocytes % (Manual) 10, Monocytes % (Manual) 4, Platelet Estimate Normal, Macrocytosis 1+, Sodium 140, Potassium 3.4 L, Chloride 106, Carbon Dioxide 23, Anion Gap 14.4, BUN 30 H D, Creatinine 1.30 H, Estimated Creat Clear 48, Estimated GFR 41 L, Est GFR ( Amer) 49 L, Glucose 255 H, Calcium 7.5 L, Magnesium 2.5 H, Total Bilirubin 0.3, AST 42 H D, ALT 45 D, Alkaline Phosphatase 79, NT-Pro-B Natriuret Pep 6010 H, Total Protein 6.5, Albumin 3.9, Globulin 2.6, Albumin/Globulin Ratio 1.5 12/03/23 11:35: POC Glucose 347 H* I & O for Last 24 hours: Intake & Output 11/30/23 12/01/23 12/02/23 12/03/23 23:59 23:59 23:59 23:59 Intake Total 450 / 650 1445 / 1545 350 / 350 Output Total 2200 / 2200 2600 / 2800 700 / 700 Balance -1750 / -1550 -1155 / -1255 -350 / -350 Weight 159 lb 1.6 oz 164 lb 3.91 oz 162 lb 7.691 oz Constitutional Constitutional: no acute distress and cooperative *Routine HEENT Exam Eye: Present PERRL *Routine Respiratory Exam Respiratory: Present CTA bilaterally; Absent accessory muscle use, wheezes or crackles Comments: On nasal cannula *Routine Cardiovascular Exam Cardiovascular: Present RRR, Normal S1 and Normal S2; Absent murmur, gallop or rubs *Routine Abdominal Exam Abdominal: Present soft; Absent tenderness *Routine Extremities Exam Extremities: Present pulses intact; Absent cyanosis or edema *Routine Skin Exam Skin: Present intact; Absent erythema or wounds *Routine Neurological Exam Neurological: Present alert and oriented X3 Routine Psychiatric Exam Psychiatric: Present cooperative Meds Home Medications and Allergies Home Medications Medication Instructions Recorded Confirmed Type atorvastatin 20 mg tablet 20 mg PO HS Cholesterol 90 days 10/26/17 12/01/23 History ##90 cetirizine 10 mg tablet 10 mg PO DAILY Allergy symptoms 30 10/26/17 12/01/23 History days ##30 clopidogrel 75 mg tablet 75 mg PO DAILY platelet inhibitor 10/26/17 12/01/23 History 90 days ##90 metformin 1,000 mg tablet 1,000 mg PO BIDWMEAL Diabetes 90 10/26/17 12/01/23 History days ##180 aspirin 81 mg tablet,delayed 81 mg PO DAILY Heart health 05/06/18 12/01/23 History release atenolol 25 mg tablet 25 mg PO DAILY Heart rate/Blood 06/03/20 12/01/23 History pressure escitalopram oxalate 5 mg tablet 5 mg PO DAILY mood 06/03/20 12/01/23 History ipratropium 0.5 mg-albuterol 3 mg 3 ml inhalation QIDP PRN Shortness 05/03/22 12/01/23 History (2.5 mg base)/3 mL nebulization Of Breath soln allopurinol 100 mg tablet 200 mg PO DAILY Gout 12/27/22 12/01/23 History fluticasone fur. 100 mcg-umeclid 1 inh inhalation DAILY COPD 01/17/23 12/01/23 History 62.5 mcg-vilant 25 mcg inhalat.powder (Trelegy Ellipta) azithromycin 250 mg tablet 250 mg PO MOWEFR COPD 01/29/23 12/01/23 History gabapentin 300 mg capsule 600 mg (2 x 300 mg) PO BID Nerve 02/02/23 12/01/23 Rx pain 90 days #360 caps colchicine 0.6 mg tablet 0.6 mg PO DAILYP PRN gout 05/17/23 12/01/23 History bumetanide 1 mg tablet 1 mg PO BID Fluid 12/01/23 12/01/23 History spironolactone 50 mg tablet 50 mg PO BID Fluid 12/01/23 12/01/23 History New Prescriptions to Start Prescriptions: Allergies Allergy/AdvReac Type Severity Reaction Status Date / Time Sulfa (Sulfonamide Allergy Unknown BLISTERING Verified 02/13/23 14:42 Antibiotics) OF THROAT levofloxacin [From Levaquin] Allergy Verified 02/13/23 14:42 Assessment and Plan *Assessment and plan (1) Heart failure with preserved ejection fraction: Status: Acute Qualifiers: Heart failure chronicity: acute on chronic Qualified Code(s): I50.33 - Acute on chronic diastolic (congestive) heart failure Category: Medical Code(s): I50.30 - Unspecified diastolic (congestive) heart failure (2) Altered mental status: Status: Acute Category: Medical Code(s): R41.82 - Altered mental status, unspecified (3) UTI (urinary tract infection): Status: Acute Category: Medical Code(s): N39.0 - Urinary tract infection, site not specified (4) Sepsis: Status: Acute Category: Medical Code(s): A41.9 - Sepsis, unspecified organism (5) Acute and chronic respiratory failure with hypoxia: Status: Acute Category: Medical Code(s): J96.21 - Acute and chronic respiratory failure with hypoxia (6) COPD exacerbation: Status: Acute Category: Medical Code(s): J44.1 - Chronic obstructive pulmonary disease with (acute) exacerbation (7) Lung cancer: Status: Acute Category: Medical Code(s): C34.90 - Malignant neoplasm of unspecified part of unspecified bronchus or lung Plan Acute on Chronic HFpEF -known Grade II DD, with elevated filling pressure and severe LA dilation noted December 2022 -Home heart failure med only appears to include Aldactone -Presented with altered mental status but rising proBNP up to 6000 after fluid bolus for sepsis criteria -No edema noted on chest x-ray or CT -Will repeat echo here, she does not appear volume overloaded at this time -Hold on SGLT2 given acute UTI -Hold on ARNI due to hypotension AMS -resolved -likely secondary to UTI Acute UTI - recurrent per pt/family and frequently associated with AMS and hospital admission - recommend OP eval by Urology Lung Cancer - details unclear, has known LUKAS mass which appears to have new Cavitation this admission, possibly secondary to infection per Pulmonology - pt being followed by Pulmonology here and will f/u with [facility] post discharge Tob Use - pt declines cessation Hypotension - frequently 90s at home on Aldactone and PRN Lasix, she declines further med adjustement 12/02 Summary: known HFpEF pt with mild exacerbation in setting of UTI/Sepsis with fluid bolus and ongoing lung cancer. She is back to baseline. No further CV interventions or med adjustments anticipated at this time. She can f/u with us in clinic in 2 weeks otherwise we will sign off. Please advise if further questions/concerns prior to discharge.
--- NOTE | 2023-12-03 14:16 | P.PN_ITS ---
Subjective *Date: 12/03/23 *Time: 23:06 Interval history: Patient on 4 L nasal cannula oxygen at this time. Remained afebrile. No acute complaints. Alert and oriented x 3. Pulm and cardiology assisting with care. Tolerating antibiotics. No nausea or vomiting. Medical Exam Vital signs and Labs for Last 24 Hours: Vital Signs Temp Pulse Pulse Resp BP Pulse Ox O2 Del Method 12/03/23 13:57 82 12/03/23 13:57 78 12/03/23 13:10 Nasal Cannula 12/03/23 11:50 97.9 F 77 20 119/71 90 L Nasal Cannula 12/03/23 11:10 Nasal Cannula 12/03/23 09:30 79 12/03/23 09:30 78 12/03/23 09:30 90 L Nasal Cannula 12/03/23 08:51 Nasal Cannula 12/03/23 08:51 Nasal Cannula 12/03/23 07:30 98.8 F 80 22 126/69 90 L 12/03/23 06:54 Nasal Cannula 12/03/23 06:20 77 12/03/23 06:20 77 12/03/23 05:00 Nasal Cannula 12/03/23 04:00 97.9 F 86 16 101/49 L 94 L Nasal Cannula 12/03/23 03:00 Nasal Cannula 12/03/23 02:27 88 12/03/23 02:27 92 H 12/03/23 01:00 Nasal Cannula 12/03/23 00:00 98.4 F 59 L 18 94/60 L 93 L Nasal Cannula 12/02/23 23:00 Nasal Cannula 12/02/23 22:33 73 12/02/23 22:32 77 12/02/23 21:00 Nasal Cannula 12/02/23 20:00 93 L Nasal Cannula 12/02/23 20:00 97.9 F 82 17 134/71 91 L Nasal Cannula 12/02/23 19:10 Nasal Cannula 12/02/23 19:09 78 12/02/23 19:09 72 12/02/23 19:00 Nasal Cannula 12/02/23 16:00 90 12/02/23 16:00 98.0 F 81 18 124/74 96 Nasal Cannula O2 Flow Rate 12/03/23 13:57 12/03/23 13:57 12/03/23 13:10 3 12/03/23 11:50 12/03/23 11:10 3 12/03/23 09:30 12/03/23 09:30 12/03/23 09:30 4 12/03/23 08:51 3 12/03/23 08:51 3 12/03/23 07:30 12/03/23 06:54 4 12/03/23 06:20 12/03/23 06:20 12/03/23 05:00 4 12/03/23 04:00 12/03/23 03:00 4 12/03/23 02:27 12/03/23 02:27 12/03/23 01:00 4 12/03/23 00:00 2 12/02/23 23:00 12/02/23 22:33 12/02/23 22:32 12/02/23 21:00 4 12/02/23 20:00 4 12/02/23 20:00 4 12/02/23 19:10 4 12/02/23 19:09 12/02/23 19:09 12/02/23 19:00 4 12/02/23 16:00 12/02/23 16:00 3.5 Intake and Output 12/02/23 12/03/23 12/03/23 23:59 07:59 15:59 Intake Total 285 / 1545 100 / 350 250 / 350 Output Total 1400 / 2800 700 / 700 Balance -1115 / -1255 -600 / -350 250 / -350 Intake: Intake, Oral Amount 285 / 1545 100 / 350 250 / 350 Output: Output, Urine Amount 1400 / 2800 700 / 700 Other: Number of Unmeasured Voids 0 1 Weight 73.7 kg Patient Weight 12/03/23 23:59 Weight 73.7 kg Laboratory Results - last 24 hr 12/02/23 16:16: POC Glucose 202 H 12/02/23 20:50: POC Glucose 393 H* 12/03/23 05:22: POC Glucose 251 H 12/03/23 06:53: WBC 14.5 H D, RBC 3.77 L, Hgb 12.6, Hct 40.7, MCV 108.0 H, MCH 33.4 H, MCHC 30.9 L, RDW 15.7, Plt Count 216, MPV 8.9, Neut % (Auto) 90.8 H, Lymph % (Auto) 6.2 L, [place] % (Auto) 2.3, Eos % (Auto) 0.1, Baso % (Auto) 0.6, Neut # (Auto) 13.1 H, Lymph # (Auto) 0.9, [place] # (Auto) 0.3, Eos # (Auto) 0.0, Baso # (Auto) 0.1, Total Counted 100, Neutrophils % (Manual) 86 H, Lymphocytes % (Manual) 10, Monocytes % (Manual) 4, Platelet Estimate Normal, Macrocytosis 1+, Sodium 140, Potassium 3.4 L, Chloride 106, Carbon Dioxide 23, Anion Gap 14.4, BUN 30 H D, Creatinine 1.30 H, Estimated Creat Clear 48, Estimated GFR 41 L, Est GFR ( Amer) 49 L, Glucose 255 H, Calcium 7.5 L, Magnesium 2.5 H, Total Bilirubin 0.3, AST 42 H D, ALT 45 D, Alkaline Phosphatase 79, NT-Pro-B Natriuret Pep 6010 H, Total Protein 6.5, Albumin 3.9, Globulin 2.6, Albumin/Globulin Ratio 1.5 12/03/23 11:35: POC Glucose 347 H* I & O for Labs for Last 24 Hours: Intake & Output 11/30/23 12/01/23 12/02/23 12/03/23 23:59 23:59 23:59 23:59 Intake Total 450 / 650 1445 / 1545 350 / 350 Output Total 2200 / 2200 2600 / 2800 700 / 700 Balance -1750 / -1550 -1155 / -1255 -350 / -350 Weight 72.167 kg 74.5 kg 73.7 kg Constitutional: Present no acute distress, average body habitus and chronically ill appearing Head: Present atraumatic and normocephalic ENT: Present normal exam Respiratory: Present wheezes, crackles and normal respiratory effort; Absent rhonchi Cardiac: Present Reg Rate and Rhythm GI: Present soft and normal bowel sounds; Absent distention or tenderness Extremities: Present normal inspection and full ROM Skin: Present intact; Absent erythema Neuro: Present Grossly Intact, alert, awake, oriented x 3 and moves all extremities Assessment and Plan *Assessment and plan (1) Acute and chronic respiratory failure with hypoxia: Status: Acute Category: Medical Code(s): J96.21 - Acute and chronic respiratory failure with hypoxia (2) Pneumonia: Status: Acute Category: Medical Code(s): J18.9 - Pneumonia, unspecified organism (3) Sepsis: Status: Acute Category: Medical Code(s): A41.9 - Sepsis, unspecified organism (4) UTI (urinary tract infection): Status: Acute Category: Medical Code(s): N39.0 - Urinary tract infection, site not specified (5) COPD exacerbation: Status: Acute Category: Medical Code(s): J44.1 - Chronic obstructive pulmonary disease with (acute) exacerbation (6) Acute kidney injury: Status: Resolved Category: Medical Code(s): N17.9 - Acute kidney failure, unspecified (7) CHF (congestive heart failure): Status: Acute Category: Medical Code(s): I50.9 - Heart failure, unspecified (8) CAD (coronary artery disease): Problem Comment: APR 2022-Severe ostial mid left main disease as described Successful stenting of the ostial proximal mid distal left main artery reducing the stenosis to less than 10% giving excellent angiograph results Preserved ejection fraction Normal left ventricular end-diastolic pressure Persistent stenosis in a large posterior lateral branch which is best managed medically Status: Chronic Qualifiers: Associated angina: without angina Coronary Disease-Associated Artery/Lesion type: [place] artery [place] vs. transplanted heart: [place] heart Qualified Code(s): I25.10 - Atherosclerotic heart disease of [place] coronary artery without angina pectoris Category: Medical Code(s): I25.10 - Atherosclerotic heart disease of [place] coronary artery without angina pectoris (9) HLD (hyperlipidemia): Status: Chronic Qualifiers: Hyperlipidemia type: mixed hyperlipidemia Qualified Code(s): E78.2 - Mixed hyperlipidemia Category: Medical Code(s): E78.5 - Hyperlipidemia, unspecified (10) HTN (hypertension): Status: Chronic Qualifiers: Hypertension type: essential hypertension Qualified Code(s): I10 - Essential (primary) hypertension Category: Medical Code(s): I10 - Essential (primary) hypertension (11) PAD (peripheral artery disease): Status: Acute Category: Medical Code(s): I73.9 - Peripheral vascular disease, unspecified (12) Diabetes mellitus: Status: Acute Category: Medical Code(s): E11.9 - Type 2 diabetes mellitus without complications (13) Fibromyalgia: Status: Acute Category: Medical Code(s): M79.7 - Fibromyalgia (14) Tobacco use: Status: Chronic Category: Social Hx Code(s): Z72.0 - Tobacco use Plan 68 year old female presented to [facility] ED for c/o SOB and confusion. PMHX of COPD, CHF, HLD, HTN, DM, Fibromyalgia, and tobacco abuse. The daughter is at bedside and is main historian. The pt wears 2L of oxygen at night to sleep. Upon ED arrival she was hypoxic. She is now requiring 4L NC. The ED work up revealed a UTI with positive nitrates and chest xray with left upper lung field dense consolidation. The ED physician started the pt on zoysn and IV fluids. Her BNP was elevated @ 1270. She was given 40mg of lasix. The ED physician consulted the hospitalist team for further medical management. I admitted the pt to the medical floor. She will continue to receive IV zosyn and methylprednisone. She will also receive scheduled duonebs. I have consulted pulmonary and cardiology to assist with her inpatient care. The pt's blood work was concerning for an JUVE with creatinine of 1.4. Continues to require 4 L nasal cannula oxygen. Showing stability of kidney function. Continues to require inpatient management. Pulmonology and cardiology assisting with care. Problems addressed as follows: SEPSIS Cavitary pneumonia Acute on chronic hypoxemic respiratory failure COPD Lung cancer -Pulmonology consulted, appreciate their recommendations. Discussed case today. Lesion in left upper lobe appears to be worsening from imaging at recently. Concerning for infection. - Continue Zosyn and vancomycin IV, monitor kidney function for toxicity. Follow with culture results - Continue DuoNebs every 6 hours along with Pulmicort every 12 scheduled - Continue nasal cannula oxygen supplementation to maintain O2 saturation above 90%, below 95%. Currently on 4 L. -Continue prednisone 40 mg daily UTI: continue Zosyn. Culture pending. Mentation is improved JUVE -creatinine of 1.3, BUN 30. Repeat CBC, CMP, magnesium ordered for the morning. Caution with nephrotoxins. Monitor closely given combo of vancomycin and Zosyn above. Acute on chronic heart failure with preserved ejection fraction. CAD Hyperlipidemia PAD - Cardiology consulted, appreciate their recommendations. - Strict ins and outs - Discussed case this morning, concern for acute on chronic heart failure with preserved ejection fraction. Repeat echo pending to monitor volume overload. - Hold ARNI and SGLT2 at this time in the setting of JUVE and hypotension. UTI: Continue Zosyn. DM: Continue sliding scale insulin with fingersticks ACHS TOBACCO ABUSE: nicotine patch prn FULL CODE DIABETIC DIET DVT: LOVENOX SQ
--- NOTE | 2023-12-03 15:45 | PC.NURSE ---
VS stable, patient weaned from 4LNC to 3LNC. Lung sounds diminished. IV antibiotics and steroids given.
[2023-12-03 17:11] LABS: POC Glucose,Bedside 257 (70-110)
[2023-12-03] MEDS: COLCHICINE 0.6MG TABLET 0.599999999999999978 MG PO (20:47)
[2023-12-03] MEDS: MELATONIN 5MG TABLET 5 MG PO (20:48)
[2023-12-03] MEDS: ATORVASTATIN 20MG TABLET 20 MG PO (20:48)
[2023-12-03] MEDS: ACETAMINOPHEN 500MG TAB 500 MG PO (20:48)
[2023-12-03 20:49] LABS: POC Glucose,Bedside 137 (70-110)
[2023-12-04] VITALS (8 sets, daily range): BP systolic 124–140; BP diastolic 67–77; PULSE 72–88; RESP 18–20; TEMP 36.5–36.8; O2SAT 92–96; BMI 29.9
[2023-12-04 05:48] LABS: POC Glucose,Bedside 246 (70-110)
[2023-12-04] MEDS: humaLOG 100 UNITS/ML 3ML VIAL (SSI) SQ ×2 (05:50→11:36)
[2023-12-04] MEDS: PIPERACILLIN/TAZO 3.375 GM in 0.9 % SODIUM CHLORIDE 50 ML IV ×2 (05:51→11:40)
--- NOTE | 2023-12-04 05:55 | PC.NURSE ---
Patient has had a good night. Has been able to sleep much better and has stated there shakiness is gone after stopping the steroids yesterday. Has voiced multiple times that she is excited to go home and hopes she can go home today. Patient remains on 4L NC and AxO. No other issues noted by patient, family, core fitter
[2023-12-04] MEDS: BUDESONIDE 0.5MG/2ML NEB 0.5 MG IH (06:24)
[2023-12-04] MEDS: IPRATROPIUM/ALBUTEROL 3 ML NEB IH ×3 (06:24→14:19)
[2023-12-04 07:12] LABS: Basophils # 0.1 K/mm3 (0-0.2); Eosinophils % 0.2 % (0.1-12.0); Hematocrit 37.8 % (37.0-47.0); Lymphocytes # 2.3 K/mm3 (0.7-4.5); Lymphocytes % 19.1 % (10-50); Mean Corpuscular HGB Conc 31.8 g/dL (31.8-35.4); Mean Corpuscular Volume 106.6 fl (81-99); Mean Platelet Volume 9.6 fl (7.4-10.4); Monocytes # 0.8 K/mm3 (0.1-1.0); Monocytes % 6.4 % (1.7-9.3); Neutrophils # 8.8 K/mm3 (1.8-7.8); Neutrophils % 73.4 % (37.0-80.0); Platelet Count 221 K/mm3 (142-424); Red Blood Count 3.55 M/mm3 (4.20-5.40); Red Cell Distribution Width 15.7 % (11.5-17.5)
[2023-12-04 07:21] LABS: Alanine Aminotransferase 28 U/L (12-78); Albumin Level 3.7 g/dl (3.5-5.0); Albumin/Globulin Ratio 1.5 (1.1-1.8); Alkaline Phosphatase 72 U/L (38-126); Anion Gap 9.2 mEq/L (5-15); Aspartate Amino Transferase 25 U/L (14-36); Bilirubin,Total 0.2 mg/dl (0.2-1.3); Calcium 7.3 mg/dl (8.4-10.2); Carbon Dioxide 27 mmol/L (22.0-30.0); Chloride 108 mmol/L (98-107); Globulin 2.4 g/dL (1.3-3.2); Glucose 224 mg/dl (74-100); Potassium 3.2 mmoL/L (3.5-5.1); Sodium 141 mmol/L (136-145); Total Protein,Serum 6.1 g/dl (6.3-8.2)
[2023-12-04 08:28] LABS: Magnesium 2.3 mg/dl (1.6-2.3)
[2023-12-04] MEDS: VANCOMYCIN HCL 1,000 MG in 0.9 % SODIUM CHLORIDE 250 ML 125 MG IV (08:45)
[2023-12-04] MEDS: CLOPIDOGREL 75MG TAB 75 MG PO (08:46)
[2023-12-04] MEDS: ENOXAPARIN 40MG/0.4ML SYRINGE 40 MG SQ (08:46)
[2023-12-04] MEDS: ASPIRIN EC 81MG TABLET 81 MG PO (08:46)
[2023-12-04] MEDS: ATENOLOL 25MG TABLET 25 MG PO (08:46)
[2023-12-04] MEDS: SPIRONOLACTONE 25MG TABLET 50 MG PO (08:46)
[2023-12-04] MEDS: BUMETANIDE 1 MG TABLET PO (08:46)
[2023-12-04] MEDS: POTASSIUM CHLORIDE 20MEQ TAB 40 MEQ PO (08:47)
[2023-12-04] MEDS: predniSONE 20MG TAB 40 MG PO (08:47)
[2023-12-04] MEDS: GABAPENTIN 600MG TABLET 600 MG PO (08:47)
[2023-12-04] MEDS: LORATADINE 10MG TABLET 10 MG PO (08:47)
[2023-12-04] MEDS: CITALOPRAM 10MG TABLET 10 MG PO (08:47)
[2023-12-04] MEDS: ALLOPURINOL 100MG TABLET 200 MG PO (08:48)
[2023-12-04 09:06] LABS: Blood Urea Nitrogen 28 mg/dl (7-17); Creatinine Clearance Estimated 52 mL/min (50-200); Estimated Glomerular Filt Rate 45 ml/min (>60); GFR (African American) 54 ML/MIN (>60)
[2023-12-04] MEDS: NICOTINE 21MG/24HR PATCH 21 MG TD (10:03)
[2023-12-04 10:38] LABS: POC Glucose,Bedside 191 (70-110)
[2023-12-04] MEDS: SODIUM CHLORIDE 3% 15ML NEB 3 ML IH (10:48)
--- NOTE | 2023-12-04 12:05 | EXP.DC.SUM ---
General Admission date:: 12/01/23 Discharge date: 12/04/23 HPI HPI HPI: 68 year old female presented to [facility] ED for c/o SOB and confusion. PMHX of COPD, CHF, HLD, HTN, DM, Fibromyalgia, and tobacco abuse. The daughter is at bedside and is main historian. The pt wears 2L of oxygen at night to sleep. Upon ED arrival she was hypoxic. She is now requiring 4L NC. The ED work up revealed a UTI with positive nitrates and chest xray with left upper lung field dense consolidation. The ED physician started the pt on zoysn and IV fluids. Her BNP was elevated @ 1270. She was given 40mg of lasix. The ED physician consulted the hospitalist team for further medical management. I admitted the pt to the medical floor. She will continue to receive IV zosyn and methylprednisone. She will also receive scheduled duonebs. I have consulted pulmonary and cardiology to assist with her inpatient care. The pt's blood work was concerning for an JUVE with creatinine of 1.4. I will repeat her kidney function this morning and monitor her electrolyte balance due to diuresis. She has blood cultures and urine culture pending. Pt is currently hemodynamically stable. The pt had an iron transfusion on Sunday for her fibromyalgia Hospital Course Hospital Course Hospital Course: 68 year old female presented to [facility] ED for c/o SOB and confusion. PMHX of COPD, CHF, HLD, HTN, DM, Fibromyalgia, and tobacco abuse. The daughter is at bedside and is main historian. The pt wears 2L of oxygen at night to sleep. Upon ED arrival she was hypoxic. She is now requiring 4L NC. The ED work up revealed a UTI with positive nitrates and chest xray with left upper lung field dense consolidation. The ED physician started the pt on zoysn and IV fluids. Her BNP was elevated @ 1270. She was given 40mg of lasix. The ED physician consulted the hospitalist team for further medical management. I admitted the pt to the medical floor. Continued IV antibiotics. Pulmonology and cardiology were consulted to assist with care. Noted to have cavitary lesion in the lung. Given medical stability, will discharge home on oral antibiotics to complete 10-day course. Close follow-up with pulmonology for further management. Continues to require 4 L nasal cannula oxygen. Room air saturation of 87 to 88% at rest on day of discharge. Problems addressed during hospitalization as follows: SEPSIS Cavitary pneumonia Acute on chronic hypoxemic respiratory failure COPD Lung cancer -Pulmonology consulted, assisted with care. Initiated on broad-spectrum antibiotics with vancomycin and Zosyn. Also treated with IV methylprednisolone. Showed gradual improvement in symptoms with improvement in white count to 12 by day of discharge. Given stability of oxygen requirement, clinical improvement, will transition to clindamycin to complete 10 days of antibiotics. Needs 6 more days of antibiotics at discharge. Sputum culture obtained and pending at discharge. Continue breathing treatments and inhalers at home. Close follow-up with pulmonology for further management. UTI: Treated with Zosyn during admission. Culture pending at discharge, negative by time of discharge. Mentation improved due to confusion. Confusion could also be related to hypoxia. No further antibiotics beyond clindamycin at this time. Urinary symptoms resolved. JUVE: Creatinine 1.4 on admission, improved to 1.2 by day of discharge. This appears to be her baseline. Acute on chronic heart failure with preserved ejection fraction. CAD Hyperlipidemia PAD - Cardiology consulted, assisted with care during admission. Strict I's and O's were monitored. -6 L total balance during admission. Diuresed well. Repeat echo with diastolic dysfunction, EF preserved. Plan for follow-up with cardiology as an outpatient. Can continue aspirin, atenolol, Lipitor, Bumex, Plavix, and spironolactone. Hold ARNI and SGLT2 at this time in the setting of JUVE and hypotension. DM: Continue sliding scale insulin with fingersticks ACHS during admission resume home diabetes regimen at discharge. A1c within goal of less than 8, 7.3 during admission TOBACCO ABUSE: nicotine patch prescribed Total time spent on discharge 40 minutes in counseling, documentation, chart review, and direct care with patient. Exam Data for Last 24 hours Vital signs and Labs for Last 24 Hours: Temp Pulse Resp BP Pulse Ox O2 Del Method O2 Flow Rate 98.3 F 74 20 140/73 96 Nasal Cannula 2 12/04/23 11:14 12/04/23 11:14 12/04/23 11:14 12/04/23 11:14 12/04/23 11:14 12/04/23 11:14 12/04/23 11:14 FiO2 28 12/01/23 18:47 Laboratory Results - last 24 hr 12/03/23 16:45: POC Glucose 257 H 12/03/23 20:41: POC Glucose 137 H 12/04/23 05:41: POC Glucose 246 H 12/04/23 06:01: WBC 12.0 H, RBC 3.55 L, Hgb 12.0 L, Hct 37.8, MCV 106.6 H, MCH 34.0 H, MCHC 31.8, RDW 15.7, Plt Count 221, MPV 9.6, Neut % (Auto) 73.4, Lymph % (Auto) 19.1, Coffee % (Auto) 6.4, Eos % (Auto) 0.2, Baso % (Auto) 1.0, Neut # (Auto) 8.8 H, Lymph # (Auto) 2.3, Coffee # (Auto) 0.8, Eos # (Auto) 0.0, Baso # (Auto) 0.1, Sodium 141, Potassium 3.2 L, Chloride 108 H, Carbon Dioxide 27, Anion Gap 9.2, BUN 28 H, Creatinine 1.20 H, Estimated Creat Clear 52, Estimated GFR 45 L, Est GFR ( Amer) 54 L, Glucose 224 H, Calcium 7.3 L, Magnesium 2.3, Total Bilirubin 0.2, AST 25 D, ALT 28 D, Alkaline Phosphatase 72, Total Protein 6.1 L, Albumin 3.7, Globulin 2.4, Albumin/Globulin Ratio 1.5 12/04/23 10:30: POC Glucose 191 H I & O for Last 24 hours: Intake & Output 12/01/23 12/02/23 12/03/23 12/04/23 23:59 23:59 23:59 23:59 Intake Total 450 / 650 1445 / 1545 1190 / 1290 340 / 340 Output Total 2200 / 2200 2600 / 2800 3800 / 3800 600 / 600 Balance -1750 / -1550 -1155 / -1255 -2610 / -2510 -260 / -260 Weight 72.167 kg 74.5 kg 73.7 kg 73.754 kg Microbiology Reports for the Last 24 Hours: Microbiology 12/01/23 02:11 Blood Blood Culture - Preliminary 12/01/23 02:11 Blood Blood Culture - Preliminary Constitutional Constitutional: no acute distress, average body habitus, chronically ill appearing and cooperative *Routine HEENT Exam Head: Present normocephalic Eye: Present EOMI and PERRL ENT: Present mucous membranes moist *Routine Neck Exam Neck: Present supple; Absent lymphadenopathy *Routine Respiratory Exam Respiratory: Present prolonged expiratory phase, rhonchi, crackles and diminished air movement; Absent wheezes *Routine Cardiovascular Exam Cardiovascular: Present RRR *Routine Abdominal Exam Abdominal: Present soft and normoactive bowel sounds; Absent tenderness *Routine Rectal Exam Patient deferred: visual exam *Routine Exam Patient deferred: external exam *Routine Extremities Exam Extremities: Absent cyanosis, clubbing or edema *Routine Skin Exam Skin: Present intact and warm; Absent rash *Routine Neurological Exam Neurological: Present alert, oriented X3 and moving all extremities; Absent altered mental status Results Data Completed and Pending Labs on day of discharge: Labs from last 24 hours 12/04/23 12/04/23 12/04/23 10:30 06:01 05:41 WBC 12.0 H RBC 3.55 L Hgb 12.0 L Hct 37.8 MCV 106.6 H MCH 34.0 H MCHC 31.8 RDW 15.7 Plt Count 221 MPV 9.6 Neut % (Auto) 73.4 Lymph % (Auto) 19.1 Coffee % (Auto) 6.4 Eos % (Auto) 0.2 Baso % (Auto) 1.0 Neut # (Auto) 8.8 H Lymph # (Auto) 2.3 Coffee # (Auto) 0.8 Eos # (Auto) 0.0 Baso # (Auto) 0.1 Sodium 141 Potassium 3.2 L Chloride 108 H Carbon Dioxide 27 Anion Gap 9.2 BUN 28 H Creatinine 1.20 H Estimated Creat Clear 52 Estimated GFR 45 L Est GFR ( Amer) 54 L Glucose 224 H POC Glucose 191 H 246 H Calcium 7.3 L Magnesium 2.3 Total Bilirubin 0.2 AST 25 D ALT 28 D Alkaline Phosphatase 72 Total Protein 6.1 L Albumin 3.7 Globulin 2.4 Albumin/Globulin Ratio 1.5 12/03/23 12/03/23 20:41 16:45 WBC RBC Hgb Hct MCV MCH MCHC RDW Plt Count MPV Neut % (Auto) Lymph % (Auto) Coffee % (Auto) Eos % (Auto) Baso % (Auto) Neut # (Auto) Lymph # (Auto) Coffee # (Auto) Eos # (Auto) Baso # (Auto) Sodium Potassium Chloride Carbon Dioxide Anion Gap BUN Creatinine Estimated Creat Clear Estimated GFR Est GFR ( Amer) Glucose POC Glucose 137 H 257 H Calcium Magnesium Total Bilirubin AST ALT Alkaline Phosphatase Total Protein Albumin Globulin Albumin/Globulin Ratio Preliminary micro results at discharge 12/01/23 02:11 Blood Culture - Preliminary Blood 12/01/23 02:11 Blood Culture - Preliminary Blood DS: Diagnosis Discharge Diagnosis (1) Acute and chronic respiratory failure with hypoxia: Status: Acute Code(s): J96.21 - Acute and chronic respiratory failure with hypoxia (2) Pneumonia: Status: Acute Code(s): J18.9 - Pneumonia, unspecified organism (3) Sepsis: Status: Acute Code(s): A41.9 - Sepsis, unspecified organism (4) UTI (urinary tract infection): Status: Acute Code(s): N39.0 - Urinary tract infection, site not specified (5) COPD exacerbation: Status: Acute Code(s): J44.1 - Chronic obstructive pulmonary disease with (acute) exacerbation (6) Acute kidney injury: Status: Resolved Code(s): N17.9 - Acute kidney failure, unspecified (7) CHF (congestive heart failure): Status: Acute Code(s): I50.9 - Heart failure, unspecified (8) CAD (coronary artery disease): Status: Chronic Code(s): I25.10 - Atherosclerotic heart disease of [place] coronary artery without angina pectoris Qualifiers: Associated angina: without angina Coronary Disease-Associated Artery/Lesion type: [place] artery [place] vs. transplanted heart: [place] heart Qualified Code(s): I25.10 - Atherosclerotic heart disease of [place] coronary artery without angina pectoris Problem details: APR 2022-Severe ostial mid left main disease as described Successful stenting of the ostial proximal mid distal left main artery reducing the stenosis to less than 10% giving excellent angiograph results Preserved ejection fraction Normal left ventricular end-diastolic pressure Persistent stenosis in a large posterior lateral branch which is best managed medically (9) HLD (hyperlipidemia): Status: Chronic Code(s): E78.5 - Hyperlipidemia, unspecified Qualifiers: Hyperlipidemia type: mixed hyperlipidemia Qualified Code(s): E78.2 - Mixed hyperlipidemia (10) HTN (hypertension): Status: Chronic Code(s): I10 - Essential (primary) hypertension Qualifiers: Hypertension type: essential hypertension Qualified Code(s): I10 - Essential (primary) hypertension (11) PAD (peripheral artery disease): Status: Acute Code(s): I73.9 - Peripheral vascular disease, unspecified (12) Diabetes mellitus: Status: Acute Code(s): E11.9 - Type 2 diabetes mellitus without complications (13) Fibromyalgia: Status: Acute Code(s): M79.7 - Fibromyalgia (14) Tobacco use: Status: Chronic Code(s): Z72.0 - Tobacco use Meds Home Medications and Allergies Home Medications Medication Instructions Recorded Confirmed Type atorvastatin 20 mg tablet 20 mg PO HS Cholesterol 90 days 10/26/17 12/01/23 History ##90 cetirizine 10 mg tablet 10 mg PO DAILY Allergy symptoms 30 10/26/17 12/01/23 History days ##30 clopidogrel 75 mg tablet 75 mg PO DAILY platelet inhibitor 10/26/17 12/01/23 History 90 days ##90 metformin 1,000 mg tablet 1,000 mg PO BIDWMEAL Diabetes 90 10/26/17 12/01/23 History days ##180 aspirin 81 mg tablet,delayed 81 mg PO DAILY Heart health 05/06/18 12/01/23 History release atenolol 25 mg tablet 25 mg PO DAILY Heart rate/Blood 06/03/20 12/01/23 History pressure escitalopram oxalate 5 mg tablet 5 mg PO DAILY mood 06/03/20 12/01/23 History ipratropium 0.5 mg-albuterol 3 mg 3 ml inhalation QIDP PRN Shortness 05/03/22 12/01/23 History (2.5 mg base)/3 mL nebulization Of Breath soln allopurinol 100 mg tablet 200 mg PO DAILY Gout 12/27/22 12/01/23 History fluticasone fur. 100 mcg-umeclid 1 inh inhalation DAILY COPD 01/17/23 12/01/23 History 62.5 mcg-vilant 25 mcg inhalat.powder (Trelegy Ellipta) azithromycin 250 mg tablet 250 mg PO MOWEFR COPD 01/29/23 12/01/23 History gabapentin 300 mg capsule 600 mg (2 x 300 mg) PO BID Nerve 02/02/23 12/01/23 Rx pain 90 days #360 caps colchicine 0.6 mg tablet 0.6 mg PO DAILYP PRN gout 05/17/23 12/01/23 History bumetanide 1 mg tablet 1 mg PO BIDL Fluid 30 days #0 tabs 12/04/23 12/01/23 Rx clindamycin HCl 150 mg capsule 450 mg (3 x 150 mg) PO TID 6 days 12/04/23 Rx #54 caps nicotine 21 mg/24 hr daily 21 mg transdermal DAILYP PRN 12/04/23 Rx transdermal patch Nicotine Cravings 28 days #28 ea ondansetron HCl 4 mg tablet 4 mg PO Q8H PRN nausea and 12/04/23 Rx vomiting 5 days #15 tabs spironolactone 50 mg tablet 50 mg PO BIDL Fluid 30 days #60 12/04/23 12/01/23 Rx tabs New Prescriptions to Start Prescriptions: clindamycin HCl Louie Barbour nicotine Km,Louie ondansetron HCl Louie Barbour Allergies Allergy/AdvReac Type Severity Reaction Status Date / Time Sulfa (Sulfonamide Allergy Unknown BLISTERING Verified 02/13/23 14:42 Antibiotics) OF THROAT levofloxacin [From Levaquin] Allergy Verified 02/13/23 14:42 Discharge Plan Disposition Patient Disposition: Home, Self-Care Condition: Good Discharge Order Discharge Orders: Discharge Order (Routine); Ordered 12/04/23 Ordered By: Louie Barbour Follow up Plan Follow up with: Earle Brewer MD [Physician] - Enter time for follow up (3 days (Sunday if possible) Daughter request to make follow up appt herself. ) Brandy Jorgensen APRN [Primary Care Provider] - 12/10/23 2:45 pm Gilberto Reid MD [Staff Physician] - Enter time for follow up (Daughter request to make follow up appt herself. ) Prescriptions/Medication Reconciliation: New nicotine 21 mg/24 hr Patch 24 Hour 21 mg transdermal DAILYP PRN (Reason: Nicotine Cravings) 28 Days Qty: 28 2RF clindamycin HCl 150 mg capsule 450 mg PO TID 6 Days Qty: 54 0RF ondansetron HCl 4 mg tablet 4 mg PO Q8H PRN (Reason: nausea and vomiting) 5 Days Qty: 15 0RF Continued ipratropium-albuterol 0.5 mg-3 mg(2.5 mg base)/3 mL solution for nebulization 3 ml IH QIDP PRN (Reason: Shortness Of Breath) metformin 1,000 mg tablet 1,000 mg PO BIDWMEAL 90 Days Qty: 180 Patient Comments: clopidogrel 75 mg tablet 75 mg PO DAILY 90 Days Qty: 90 Patient Comments: cetirizine 10 mg tablet 10 mg PO DAILY 30 Days Qty: 30 Patient Comments: TAKE 1 TABLET ONCE A DAY FOR VERTIGO atorvastatin 20 mg tablet 20 mg PO HS 90 Days Qty: 90 Patient Comments: Trelegy Ellipta 100-62.5-25 mcg blister with device 1 inh inhalation DAILY atenolol 25 MG tablet 25 mg PO DAILY escitalopram oxalate 5 MG tablet 5 mg PO DAILY allopurinol 100 mg tablet 200 mg PO DAILY azithromycin 250 mg tablet 250 mg PO MOWEFR gabapentin 300 mg capsule 600 mg PO BID 90 Days Qty: 360 0RF colchicine 0.6 mg tablet 0.6 mg PO DAILYP PRN (Reason: gout) Patient Comments: TAKE 1 TABLET BY MOUTH EVERY DAY NEEDED FOR GOUT aspirin 81 MG tablet,delayed release (DR/EC) 81 mg PO DAILY Changed bumetanide 1 mg tablet 1 mg PO BIDL 30 Days Qty: 0 0RF spironolactone 50 mg tablet 50 mg PO BIDL 30 Days Qty: 60 0RF Other Ambulatory Orders: Home Medical Equipment (Routine) Location: None Selected Ordered By: Louie Barbour Problem Reconciliation Problems Reviewed?: Yes Patient Discharge Instructions ACTIVITY: Continue current activity DIET: continue same diet Patient Instructions: DI for Pneumonia -- Adult Providers Primary Care Provider: Brandy Jorgensen Admit Provider: Herlinda Do Attending Provider: Herlinda Do
--- NOTE | 2023-12-04 12:41 | PC.NURSE ---
Patients O2 87% on room air at rest .
--- NOTE | 2023-12-04 12:42 | HMH.PHAINT1 ---
Pharmacy Intervention Comments: Discharge counseling was provided to patient. New medications included: -clindamycin 450mg three times a day for six days -Nicotine patch 21mg one patch daily as needed Patient verbalized understanding with no questions regarding the medications.
[2023-12-04] MEDS: ONDANSETRON 4MG/2ML VIAL 4 MG IV (12:48)
--- NOTE | 2023-12-04 12:53 | PC.NURSE ---
87 % on RA at rest.
--- NOTE | 2023-12-05 13:49 | CARE MANAGER ---
Contacted patient related to hospital discharge. She states she got her medications and is aware of PCP follow up. Her daughter is making the appt with cards and pulmonology. She denies questions or concerns. YOAV Arizmendi
[2023-12-06 16:18] LABS: Aspergillus flavus Negative (Neg:<1:1); Aspergillus fumigatus Negative (Neg:<1:1); Aspergillus niger Negative (Neg:<1:1); Blastomyces Antibody Negative (Neg:<1:1)
[2023-12-10 12:42] LABS: Fungitell(Beta D-Glucan) Serum 175.559
== END 2023-12-04 14:42 | disposition home or self-care (01) | DRG 871 ==
LOC: ER 03:05 → 2ND 06:59
PROVIDERS: Internal Medicine Adolescent Medicine; Internal Medicine Pulmonary Disease; Nurse Practitioner Critical Care Medicine; Physician Assistant; Admitting Provider Internal Medicine; Emergency Provider Emergency Medicine; PCP Nurse Practitioner Family; Visit Provider Internal Medicine
DX: A41.9 Sepsis, unspecified organism (principal); I50.33 Acute on chronic diastolic (congestive) heart failure; J18.9 Pneumonia, unspecified organism; J96.21 Acute and chronic respiratory failure with hypoxia; N39.0 Urinary tract infection, site not specified; J44.1 Chronic obstructive pulmonary disease with (acute) exacerbation; N17.9 Acute kidney failure, unspecified; C34.90 Malignant neoplasm of unspecified part of unspecified bronchus or lung; J44.0 Chronic obstructive pulmonary disease with (acute) lower respiratory infection; I25.10 Atherosclerotic heart disease of native coronary artery without angina pectoris; M79.7 Fibromyalgia; I27.20 Pulmonary hypertension, unspecified; F17.210 Nicotine dependence, cigarettes, uncomplicated; Z79.02 Long term (current) use of antithrombotics/antiplatelets; Z79.899 Other long term (current) drug therapy; Z79.84 Long term (current) use of oral hypoglycemic drugs; Z95.5 Presence of coronary angioplasty implant and graft; E11.51 Type 2 diabetes mellitus with diabetic peripheral angiopathy without gangrene; Z99.81 Dependence on supplemental oxygen; I11.0 Hypertensive heart disease with heart failure
CPT/HCPCS: 36415; 71045; 71250; 80048; 80053; 81001; 82040; 82310; 82565; 82803; 82947; 82962; 83036; 83605; 83735; 83880; 84484; 84520; 85007; 85025; 86606; 86612; 87040; 87086; 87116; 87186; 87206; 87220; 87449; 87636; 93005; 93306; 94640; 94761; 96374; 99285; J2405; J2543; J3370; J3489

== ENCOUNTER 2023-12-13 15:10 | Outpatient (CLI) | payer MEDICARE, SELFPAY ==
[2023-12-18 18:08] LABS: Histoplasma Antibody Quant Negative (Neg:<1:1)
[2023-12-22 10:34] LABS: Fungitell(Beta D-Glucan) Serum SCANNED IMAGE
== END 2023-12-13 23:59 ==
LOC: LAB 15:11
PROVIDERS: PCP Internal Medicine Adolescent Medicine; Visit Provider Internal Medicine Pulmonary Disease
DX: B44.9 Aspergillosis, unspecified; R91.1 Solitary pulmonary nodule
CPT/HCPCS: 36415; 86698; 87449

== ENCOUNTER 2023-12-14 14:08 | Outpatient (CLI) | payer MEDICARE, SELFPAY ==
[2023-12-20 17:09] LABS: Histoplasma Gal'mannan Ag Ur Negative (<0.5 ng/mL)
== END 2023-12-14 23:59 | disposition home or self-care (01) ==
LOC: LAB.DROPOF 14:09
PROVIDERS: PCP Internal Medicine Adolescent Medicine; Visit Provider Internal Medicine Pulmonary Disease
DX: B49 Unspecified mycosis; F17.210 Nicotine dependence, cigarettes, uncomplicated; R91.8 Other nonspecific abnormal finding of lung field; J18.9 Pneumonia, unspecified organism; J44.9 Chronic obstructive pulmonary disease, unspecified
CPT/HCPCS: 87385

== ENCOUNTER 2023-12-25 11:35 | Outpatient (CLI) | payer MEDICARE, SELFPAY ==
--- NOTE | 2023-12-25 11:45 | XR_ITS ---
FINAL REPORT CLINICAL HISTORY: COCCYDYNIA; RADICULAR PAIN OF RIGHT LOWER EXTREMITY COMPARISON: None FINDINGS: SACRUM COCCYX 3 views demonstrate no acute fracture or dislocation. The sacral arches are intact. There are degenerative changes in the SI joints. No soft tissue abnormality is seen. IMPRESSION: No acute abnormality of the sacrum. Reviewed, Interpreted and Dictated by Thanh Jones III, MD Transcribed by Radha Burrell Authenticated and [facility]
--- NOTE | 2023-12-25 11:46 | XR_ITS ---
FINAL REPORT CLINICAL HISTORY: COCCYDYNIA; RADICULAR PAIN OF RT LOWER EXTREMITY COMPARISON: None FINDINGS: 5 views of the lumbar spine were obtained. There is no evidence of fracture or dislocation. The vertebral alignment is normal. There are moderate and severe degenerative changes. There is rightward curvature of the lumbosacral spine. Multilevel facet arthropathy is noted. There are vascular calcifications. No acute paraspinous soft tissue abnormalities identified. IMPRESSION: Moderate and severe degenerative changes without acute bony abnormality. Reviewed, Interpreted and Dictated by Thanh Jones III, MD Transcribed by Radha Burrell Authenticated and [facility]
== END 2023-12-25 23:59 ==
LOC: RAD 11:36
PROVIDERS: PCP Internal Medicine Adolescent Medicine; Visit Provider Nurse Practitioner Family
DX: M53.3 Sacrococcygeal disorders, not elsewhere classified (principal); M54.10 Radiculopathy, site unspecified
CPT/HCPCS: 72110; 72220

== ENCOUNTER 2023-12-31 08:47 | Day surgery (SDC) | payer MEDICARE, SELFPAY ==
[2023-12-28 12:00] VITALS: BMI 28.3
[2023-12-31] VITALS (18 sets, daily range): BP systolic 105–165; BP diastolic 52–95; PULSE 66–81; RESP 14–24; TEMP 36.2–37.1; O2SAT 78–94
[2023-12-31 09:31] LABS: POC Glucose,Bedside 137 (70-110)
[2023-12-31] MEDS: LACTATED RINGERS 1000ML 1,000 ML 25 ML IV (09:31)
[2023-12-31 09:38] LABS: Chloride 103 mmol/L (98-107)
[2023-12-31 09:39] LABS: Potassium 3.8 mmoL/L (3.5-5.1); Sodium 141 mmol/L (136-145)
[2023-12-31 09:42] LABS: Anion Gap 9.8 mEq/L (5-15); Blood Urea Nitrogen 30 mg/dl (7-17); Calcium 9.7 mg/dl (8.4-10.2); Carbon Dioxide 32 mmol/L (22.0-30.0); Creatinine Clearance Estimated 50 mL/min (50-200); Estimated Glomerular Filt Rate 45 ml/min (>60); GFR (African American) 54 ML/MIN (>60); Glucose 142 mg/dl (74-100)
--- NOTE | 2023-12-31 09:47 | P.PNANES_ITS ---
[facility] Disclaimer: The information contained in this section may have been updated after the patient was seen, as this information can be updated by other users. Medical History Smoking greater than 30 pack years COPD mixed type Multiple lung nodules on CT Fungal pneumonia Acute and chronic respiratory failure with hypoxia Intertrochanteric fracture of left hip Closed left hip fracture Acute respiratory failure with hypoxia Pneumonia due to COVID-19 virus Diabetes mellitus Diastolic dysfunction HLD (hyperlipidemia) HTN (hypertension) Subclavian artery stenosis, left PAD (peripheral artery disease) Tobacco use History of placement of stent in LAD coronary artery CAD (coronary artery disease) COPD (chronic obstructive pulmonary disease) ACUÑA (dyspnea on exertion) Surgical History History of hysterectomy History of hip surgery Hx of right coronary artery stent placement Family History Other Asthma Cancer Diabetes Hypertension Social History Smoking Status: Current every day smoker tobacco type: cigarettes packs per day: 1 second hand exposure: No alcohol intake: never substance use type: denies use current occupational status: retired Travel in the last 8 weeks: None household members: none housing: house current occupational exposures/hazards: No caffeine: Yes [facility] Anesthesia Checklist Patient Identification Patient Identification: Arm Band Structural Data Admitted From: Home Planned Operative Procedure/s: Bronchoscopy with Transbronchial Biopsy Consent for Planned Operative Procedure(s) Verified: Yes Verified Documents: Surgical Consent and History and Physical NPO Status Verified Time NPO: 00:00 Additional verifications Anesthesia Reactions: No Hx Blood Transfusions: No Blood Transfusion Reaction: No Airway Assessment Mallampati Score:: Class II C-Spine Mobility Assessed: Yes TMJ Mobility Assessed: Yes Dentition: Good Dentition Neurological Assessment Level of Consciousness: Awake and Alert Anesthesia Plan Anesthesia Risk discussed: Yes Anesthesia Plan: Verified ASA Class: III Anesthesia Type: General
[2023-12-31 09:50] LABS: Basophils # 0.2 K/mm3 (0-0.2); Basophils % 1.6 % (0.1-2.0); Eosinophils # 0.3 K/mm3 (0.0-0.4); Eosinophils % 2.6 % (0.1-12.0); Hematocrit 44.7 % (37.0-47.0); Hemoglobin 13.9 g/dL (12.2-16.2); Lymphocytes # 3.4 K/mm3 (0.7-4.5); Lymphocytes % 29.1 % (10-50); Mean Corpuscular HGB Conc 31.1 g/dL (31.8-35.4); Mean Corpuscular Hemoglobin 33.6 pg (27.0-31.2); Mean Corpuscular Volume 108.2 fl (81-99); Mean Platelet Volume 8.4 fl (7.4-10.4); Monocytes # 0.9 K/mm3 (0.1-1.0); Monocytes % 7.5 % (1.7-9.3); Neutrophils # 6.9 K/mm3 (1.8-7.8); Platelet Count 303 K/mm3 (142-424); Red Blood Count 4.13 M/mm3 (4.20-5.40); Red Cell Distribution Width 15.3 % (11.5-17.5); White Blood Count 11.6 K/mm3 (4.8-10.8)
[2023-12-31] MEDS: LIDOCAINE 1% 10ML MDV 10 ML (10:42)
--- NOTE | 2023-12-31 11:13 | XR_ITS ---
FINAL REPORT CLINICAL HISTORY: BRONCH W/ BIOSPY 2 min 17 secs fluoro 26.16 mGy FINDINGS: FLUORO TIME PROCEDURE: Fluoroscopy in the operating room. FINDINGS: Fluoroscopy time was provided by the radiology department for the clinical service. 1 film was obtained. Fluoroscopy exposure time: 2 minutes 17 seconds Radiation dose: 26.16 mGy IMPRESSION: See operative report Reviewed, Interpreted and Dictated by Ollie Carias MD Transcribed by Domi Carranza Authenticated and [facility]
--- NOTE | 2023-12-31 11:16 | EXP.BRONCH.N ---
Procedure: Date: 12/31/23 Patient Date of :: 1955 Procedure Performed:: Bronchoscopy with airway examination bronchoalveolar lavage and transbronchial lung biopsy Indications:: Cavitary pneumonia Performing Provider:: Earle Brewer MD Referring Provider:: Dr. Barbour Sedation:: General anesthesia Procedure:: Bronchoscopy airway examination, bronchoalveolar lavage and transbronchial lung biopsy: A clean DIAGNOSTIC bronchoscopy was advanced through the laryngeal mask airway. Patient noted significant bronchoconstriction and copious amount of mucoid secretions. Given the noted copious amount of secretions unable to suction directly with a diagnostic bronchoscopy and worsening hemodynamic status including hypotension, the bronchoscopy was retracted, LMA was exchanged for endotracheal tube for the rest of the procedure. A clean diagnostic bronchoscopy was advanced to the ET tube under surveillance were performed. Significant amount of thick mucoid secretions were noted in the left upper lobe and left lower lobe bronchi. Secretions were completely suctioned. No evidence of bleeding/blood clots noted. Airways otherwise appear grossly normal Bronchoalveolar lavage was performed in the LEFT UPPER LOBE with instillation of 60 cc normal saline with return of 30 cc back. BAL fluid was sent for cell count and differential along with bacterial fungal and AFB stain and cultures. Transbronchial biopsy was performed in the LEFT UPPER LOBE with a total of 6 biopsies performed, 4 biopsy specimens were sent in formalin for cytopathologic examination. The other 2 biopsy samples, were sent one each in two separate normal saline specimen cups for bacterial fungal and AFB stain cultures. Special request was also made for the pathologist to evaluate for AFB and fungal organisms on the cytopathologic examination. Patient tolerated the procedure with no immediate acute complications. We will follow the patient in pulmonary clinic in 7 to 10 days. Findings:: Please see the procedure note Recommendations:: Postoperative bronchoscopy instructions. Follow in pulmonary clinic in 5 to 7 days postprocedure Complications:: No acute immediate complication Estimated blood obtained (mL): 10
--- NOTE | 2023-12-31 11:23 | EXP.ANES.I ---
[facility] Anesthesia Record Part I Anesthesia Record I Intake, IV Amount: 800 Hydration: Adequate Estimated blood loss (mL): 0 Urine output (mL): 0 Blood Pressure: 165/95 SaO2: 93 Pulse Rate: 78 Airway Patency: Patent Respiratory Rate: 14 Temperature: 97.1 F Patient is:: Awake and Stable Stable to PACU at:: 11:15
--- NOTE | 2023-12-31 11:25 | XR_ITS ---
FINAL REPORT CLINICAL HISTORY: post bronch COMPARISON: 10/06/2022 FINDINGS: A single portable view of the chest was obtained. The heart size and pulmonary vascularity are within normal limits. The mediastinum is within normal limits. There is a spiculated density in the medial aspect of the left upper lobe contiguous with the mediastinum, measuring 2.4 cm in size. This density was also visualized on the CT of the chest performed 12/01/2023. There is a localized airspace opacity in the periphery of the left lung, that is new since prior chest x-ray of 05/17/2023. The bony thorax is intact. IMPRESSION: Spiculated density medial aspect of the left upper lobe as described, also visualized on the CT of the chest performed 12/01/2023. Localized airspace opacity in the periphery of the lung, new since the prior chest x-ray of 2022. Reviewed, Interpreted and Dictated by Ollie Carias MD Transcribed by Sonia Vazquez Authenticated and [facility]
[2023-12-31] MEDS: ONDANSETRON 4MG/2ML VIAL 4 MG IV (11:50)
--- NOTE | 2023-12-31 12:08 | SUR.PHASEI ---
1150-pt's sats in the low 80's. pt titrated to 6LNC, still no improvement noted. Incentive spirometer used, 100cc's at best with no increase in oxygen saturations. Pt then increased to 10L simple mask, no improvements noted. 1204 Spoke to Rossy RT regarding pt's sats <89% consistently. Yazmin Lopez, spoke to MD Brewer and he ordered for pt to be placed on 6L NC with an additional duoneb ordered. Orders received and carried out. 1207- iD Fine RT at bedside administering duoneb
[2023-12-31] MEDS: IPRATROPIUM/ALBUTEROL 3 ML NEB IH (12:13)
--- NOTE | 2023-12-31 13:16 | SUR.PHASEII ---
Patient arrived to Post op via stretcher at 1303. Initial vitals are 111/56, HR 69, RR 18, O2 [address] Short at the BS. Monitors changed to show waveform, multiple sites used to ensure O2 accuracy. Dr Short stated patient cannot leave without home oxygen since she is on 6LNC,. Dr Short ordered steroids for the patient to lease picker on the way home. Called [facility] [employer] equipment for delivery of portable oxygen tank prior to discharge. Otherwise, patient remains in stable condition. Patient is not complaining of any pain. Patients family at the BS. Patient using incentive spirometer frequently.
--- NOTE | 2024-01-01 11:10 | P.PNANES_ITS ---
[facility] Anesthesia Record Part II Anesthesia Record Part II Discharge Time: 12:55 Destination: Surgical Day Care (OP Surgery) PACU nurse assessment reviewed?: Yes Patient Condition:: Good Anesthesia Complications:: None Swallowing reflex intact?: Yes Airway Patency: Patent Cyanosis?: No Blood Pressure: 152/82 SaO2: 90 Respiratory Rate: 21 Pulse Rate: 76 Temperature: 97.2 F Mental Status: Alert & Oriented Pain level:: 0 Nausea and/or vomitting:: None Intake, IV Amount: 0 Hydration: Adequate
[2024-01-01 11:12] VITALS: BP 152/82; PULSE 76; RESP 21; TEMP 36.2; O2SAT 90
== END 2023-12-31 13:35 | disposition home or self-care (01) ==
PROVIDERS: PCP Internal Medicine Adolescent Medicine; Visit Provider Internal Medicine Pulmonary Disease
PROC: (CPT 31624; principal; 2023-12-31 10:15)
DX: J44.1 Chronic obstructive pulmonary disease with (acute) exacerbation (principal); J96.11 Chronic respiratory failure with hypoxia; Z99.81 Dependence on supplemental oxygen; E11.9 Type 2 diabetes mellitus without complications; I10 Essential (primary) hypertension; C34.90 Malignant neoplasm of unspecified part of unspecified bronchus or lung; Z79.899 Other long term (current) drug therapy; Z79.01 Long term (current) use of anticoagulants; F17.200 Nicotine dependence, unspecified, uncomplicated; Z86.16 Personal history of COVID-19; Z79.84 Long term (current) use of oral hypoglycemic drugs; J18.9 Pneumonia, unspecified organism
CPT/HCPCS: 31624; 31628; 71045; 76000; 80048; 82962; 85025; 87070; 87102; 87116; 87186; 87205; 87206; 88112; 88305; 89051; 94640; J2405

== ENCOUNTER 2024-02-11 12:12 | Emergency (ER) | payer MEDICARE, SELFPAY ==
[2024-02-11] VITALS (9 sets, daily range): BP systolic 99–135; BP diastolic 49–78; PULSE 63–81; RESP 16–20; TEMP 36.6–37; O2SAT 90–97; BMI 27.1
--- NOTE | 2024-02-11 12:23 | XR_ITS ---
PROCEDURE INFORMATION: Exam: XR Right Hip Exam date and time: 02/11/2024 12:41 PM Age: 68 years old Clinical indication: Injury or trauma; Other: Fall, pain right hip TECHNIQUE: Imaging protocol: Radiologic exam of the right hip. Views: 2 or 3 views hip with pelvis when performed. COMPARISON: ABDPELWW CT abdomen pelvis wo/w con 04/26/2018 10:19 AM FINDINGS: Limitations: Poorly mineralized bones and beam attenuation due to large body habitus degrades image resolution limits visualization of fine bony detail, particularly in the sacrum. Bones/joints: No evidence of acute fracture or malalignment. Pubic symphysis and bilateral sacroiliac joints are congruent. Soft tissues: Unremarkable. IMPRESSION: No evidence of acute osseous abnormality in the right hip.
--- NOTE | 2024-02-11 12:44 | PC.NURSE ---
PT TO RADIOLOGY
--- NOTE | 2024-02-11 12:53 | PC.NURSE ---
PT RETURNED FROM RADIOLOGY
--- NOTE | 2024-02-11 13:31 | XR_ITS ---
PROCEDURE INFORMATION: Exam: XR Right Femur Exam date and time: 02/11/2024 1:40 PM Age: 68 years old Clinical indication: Pain; Thigh; Right; Additional info: Fall, hip/knee pain TECHNIQUE: Imaging protocol: Radiologic exam of the right femur. Views: 2 views. COMPARISON: LEOTJW/ORT MRI-LOW EXT OTH THN JNT W/O-RT 02/15/2017 3:15 PM FINDINGS: Bones/joints: Acute minimally displaced fracture in the right greater trochanter. No evidence of femoral neck fracture. Right hip joint remains congruent. Soft tissues: Unremarkable. IMPRESSION: Acute minimally displaced fracture in the right greater trochanter.
--- NOTE | 2024-02-11 13:31 | CT_ITS ---
PROCEDURE INFORMATION: Exam: CT Pelvis Without Contrast; Skeletal Exam date and time: 02/11/2024 1:53 PM Age: 68 years old Clinical indication: Hip pain; Right hip; Additional info: Fall, R hip/pelvic pain TECHNIQUE: Imaging protocol: Computed tomography of the pelvis without contrast. Exam focused on the skeleton. Radiation optimization: All CT scans at this facility use at least one of these dose optimization techniques: automated exposure control; mA and/or kV adjustment per patient size (includes targeted exams where dose is matched to clinical indication); or iterative reconstruction. COMPARISON: CR XR HIP RT 2-3V W/PELVIS 02/11/2024 12:41 PM FINDINGS: Bones/joints: Acute minimally displaced fracture in the right greater trochanter. The right lesser trochanter and femoral neck are intact. The right hip joint remains congruent. Post-operative changes of prior left femur fixation with intramedullary femoral sasha and cannulated cross-locking trochanteric nail. Pubic symphysis and bilateral sacroiliac joints are congruent. No other evidence of acute fracture in the pelvis. Degenerative disc disease and facet hypertrophy results in moderate to severe neuroforaminal narrowing in the lower lumbar spine, particularly on the right at L5-S1 and on the left at L3-L4. Soft tissues: Unremarkable. IMPRESSION: 1. Acute minimally displaced fracture in the right greater trochanter. 2. Degenerative disc disease and facet hypertrophy results in moderate to severe neuroforaminal narrowing in the lower lumbar spine, particularly on the right at L5-S1 and on the left at L3-L4.
--- NOTE | 2024-02-11 13:31 | XR_ITS ---
PROCEDURE INFORMATION: Exam: XR Right Knee Exam date and time: 02/11/2024 1:40 PM Age: 68 years old Clinical indication: Pain; Knee; Right; Additional info: Fall, hip/knee pain TECHNIQUE: Imaging protocol: Radiologic exam of the right knee. Views: 1 or 2 views. COMPARISON: LEOTJW/ORT MRI-LOW EXT OTH THN JNT W/O-RT 02/15/2017 3:15 PM FINDINGS: Bones/joints: No evidence of acute fracture or malalignment. No significant knee joint effusion. Moderate tricompartmental degenerative osteoarthrosis. Soft tissues: Unremarkable. IMPRESSION: 1. No evidence of acute osseous abnormality in the right knee. 2. Moderate tricompartmental degenerative osteoarthrosis.
--- NOTE | 2024-02-11 13:32 | ED_ITS ---
Discharge Plan Disposition Patient Disposition: Home, Self-Care Condition: Fair Prescriptions Prescriptions: New methocarbamol 500 mg tablet 500 mg PO Q6H PRN (Reason: muscle spasms) Qty: 40 0RF oxycodone-acetaminophen [Percocet] 5-325 mg tablet 1 tab PO Q8H PRN (Reason: pain) Qty: 12 0RF No Action ipratropium-albuterol 0.5 mg-3 mg(2.5 mg base)/3 mL solution for nebulization 3 ml IH QIDP PRN (Reason: Shortness Of Breath) metformin 1,000 mg tablet 1,000 mg PO BIDWMEAL 90 Days Qty: 180 Patient Comments: clopidogrel 75 mg tablet 75 mg PO DAILY 90 Days Qty: 90 Patient Comments: cetirizine 10 mg tablet 10 mg PO DAILY 30 Days Qty: 30 Patient Comments: TAKE 1 TABLET ONCE A DAY FOR VERTIGO atorvastatin 20 mg tablet 20 mg PO HS 90 Days Qty: 90 Patient Comments: Trelegy Ellipta 100-62.5-25 mcg blister with device 1 inh inhalation DAILY colchicine 0.6 mg tablet 0.3 mg PO Q OTHER DAY Qty: 30 2RF Rx Instructions: Maximum colchicine dose 0.3 mg every other day. Do not use colchicine to treat gout flareups as severe drug interactions might occur with increasing colchicine dose given patient receiving Itraconazole. itraconazole 100 mg capsule 200 mg PO BID Qty: 60 0RF Rx Instructions: must administer with a meal/food Patient on colchicine every day for gout prophylaxis. Colchicine dose reduced to 0.3 mg every other day. atenolol 25 MG tablet 25 mg PO DAILY escitalopram oxalate 5 MG tablet 5 mg PO DAILY allopurinol 100 mg tablet 200 mg PO DAILY gabapentin 300 mg capsule 600 mg PO BID 90 Days Qty: 360 0RF aspirin 81 MG tablet,delayed release (DR/EC) 81 mg PO DAILY bumetanide 1 mg tablet 1 mg PO BIDL 30 Days Qty: 0 0RF spironolactone 50 mg tablet 50 mg PO BIDL 30 Days Qty: 60 0RF ondansetron HCl 4 mg tablet 4 mg PO Q8H PRN (Reason: nausea and vomiting) 5 Days Qty: 15 0RF Referrals Follow up/Referrals: Brandy Jorgensen APRN [Primary Care Provider] - See instructions Activity Restrictions/Add. Instructions Additional Instructions/Restrictions: You were seen in the ED today due to fall. X-ray shows right greater trochanteric femur fracture. You may ambulate as tolerated with walker. Follow-up with Dr. Sanchez, . Please call to schedule your appointment. Return to the ED if any symptoms worsen or if new concerning symptoms arise. Thank you. Clinical Impressions Clinical Impression: Fall Qualifiers: Encounter type: initial encounter Qualified Code(s): W19.XXXA - Unspecified fall, initial encounter Closed fracture of greater trochanter of femur Qualifiers: Encounter type: initial encounter Fracture alignment: displaced Laterality: right Qualified Code(s): S72.111A - Displaced fracture of greater trochanter of right femur, initial encounter for closed fracture Instructions Patient Instructions: DI for Femoral Fracture Discharge ED Provider: Bishnu Padilla General Adult HPI General Chief complaint: Fall Stated complaint: AO-Pain in R groin area, fell 02/08 Time Seen by Provider: 02/11/24 13:30 Mode of Arrival: Wheelchair Source of Information: Patient Limitations: No Limitations Description of Symptoms (Recalled from ER Triage Doc. by RN): Patient states she fell on Sunday causing skin tears to bilateral forearms and complaint of right groin pain. History of Present Illness HPI narrative: Patient is a 68-year-old female with history of HTN, HLD, CAD, PAD, COPD who presents due to fall. Patient's daughter is present to help provide history. Patient states 2 days ago she fell while on her porch after a snake slathered across her foot. She fell forward, catching herself with her forearms and her right lower extremity. She did not strike her head or lose consciousness. Currently patient is complaining of pain primarily in her right hip. States her right knee also hurts. She has remained ambulatory but with difficulty. Related Data Home Medications Medication Instructions Recorded Confirmed atorvastatin 20 mg tablet 20 mg PO HS Cholesterol 90 days 10/26/17 01/07/24 ##90 cetirizine 10 mg tablet 10 mg PO DAILY Allergy symptoms 30 10/26/17 01/07/24 days ##30 clopidogrel 75 mg tablet 75 mg PO DAILY platelet inhibitor 10/26/17 01/07/24 90 days ##90 metformin 1,000 mg tablet 1,000 mg PO BIDWMEAL Diabetes 10/26/17 01/07/24 days ##180 aspirin 81 mg tablet,delayed 81 mg PO DAILY Heart health 05/06/18 01/07/24 release atenolol 25 mg tablet 25 mg PO DAILY Heart rate/Blood 06/03/20 01/07/24 pressure escitalopram oxalate 5 mg tablet 5 mg PO DAILY mood 06/03/20 01/07/24 ipratropium 0.5 mg-albuterol 3 mg 3 ml inhalation QIDP PRN Shortness 05/03/22 01/07/24 (2.5 mg base)/3 mL nebulization Of Breath soln allopurinol 100 mg tablet 200 mg PO DAILY Gout 12/27/22 01/07/24 fluticasone fur. 100 mcg-umeclid 1 inh inhalation DAILY COPD 01/17/23 01/07/24 62.5 mcg-vilant 25 mcg inhalat.powder (Trelegy Ellipta) Previous Rx's Medication Instructions Recorded gabapentin 300 mg capsule 600 mg (2 x 300 mg) PO BID Nerve 02/02/23 pain 90 days #360 caps bumetanide 1 mg tablet 1 mg PO BIDL Fluid 30 days #0 tabs 12/04/23 ondansetron HCl 4 mg tablet 4 mg PO Q8H PRN nausea and 12/04/23 vomiting 5 days #15 tabs spironolactone 50 mg tablet 50 mg PO BIDL Fluid 30 days #60 12/04/23 tabs colchicine 0.6 mg tablet 0.3 mg (1/2 x 0.6 mg) PO Q OTHER 01/09/24 DAY #30 tabs itraconazole 100 mg capsule 200 mg (2 x 100 mg) PO BID #60 caps 01/24/24 methocarbamol 500 mg tablet 500 mg PO Q6H PRN muscle spasms 02/11/24 #40 tabs oxycodone-acetaminophen 5 mg-325 1 tab PO Q8H PRN pain #12 tabs 02/11/24 mg tablet (Percocet) Allergies Allergy/AdvReac Type Severity Reaction Status Date / Time Sulfa (Sulfonamide Allergy Unknown BLISTERING Verified 01/07/24 15:03 Antibiotics) OF THROAT levofloxacin [From Levaquin] Allergy Verified 01/07/24 15:03 PFS PFS Disclaimer: The information contained in this section may have been updated after the patient was seen, as this information can be updated by other users. Medical History (Updated 02/11/24 @ 16:39 by Bishnu Padilla MD) Gout Smoking greater than 30 pack years COPD mixed type Multiple lung nodules on CT Fungal pneumonia Acute and chronic respiratory failure with hypoxia Intertrochanteric fracture of left hip Closed left hip fracture Acute respiratory failure with hypoxia Pneumonia due to COVID-19 virus Diabetes mellitus Diastolic dysfunction HLD (hyperlipidemia) HTN (hypertension) Subclavian artery stenosis, left PAD (peripheral artery disease) Tobacco use History of placement of stent in LAD coronary artery CAD (coronary artery disease) COPD (chronic obstructive pulmonary disease) ACUÑA (dyspnea on exertion) Surgical History History of hysterectomy History of hip surgery Hx of right coronary artery stent placement Family History Other Asthma Cancer Diabetes Hypertension Social History Smoking Status: Current every day smoker tobacco type: cigarettes packs per day: 1 second hand exposure: No alcohol intake: never substance use type: denies use current occupational status: retired Travel in the last 8 weeks: None household members: none housing: house current occupational exposures/hazards: No caffeine: Yes ROS Obtained: Yes All systems reviewed & no additional complaints except as documented Physical Exam General General appearance: alert and in no apparent distress Head Head exam: atraumatic, normocephalic and normal inspection Eye Eye exam: Present normal appearance, PERRL and EOMI ENT ENT exam: Present normal exam, normal oropharynx, mucous membranes moist, TM's normal bilaterally and normal external ear exam Neck Neck exam: Present normal inspection, full ROM and trachea midline; Absent meningismus or lymphadenopathy Chest Chest inspection: Present normal inspection and symmetric chest wall rise; Absent tenderness Respiratory Respiratory exam: Present normal lung sounds bilaterally; Absent respiratory distress Cardiovascular Cardiovascular exam: Present regular rate and normal rhythm; Absent JVD Abdominal Exam Abdominal exam: Present soft and normal bowel sounds; Absent distention, tenderness or guarding Extremities Exam Extremities exam: Present normal inspection, full ROM and normal capillary refill; Absent calf tenderness Expanded Lower Extremity Exam Right: Hip/Pelvis exam: Present tenderness Knee exam: Present tenderness Comment: Right knee swelling and tenderness to palpation. Right anterior hip tenderness to palpation. Limited range of motion at hip secondary to pain. Distal pulses, movement and sensation intact. Back Exam Back exam: Present normal inspection; Absent tenderness Neurological Exam Neurological exam: Present alert and oriented X3 Psychiatric Psychiatric exam: Present normal affect and normal mood Skin Skin exam: Present warm, dry, intact, normal color and other (Skin tears bilateral forearms.) Lymphatic Lymphatic Findings: no adenopathy Medical Decision Making Medical Records Medical records reviewed: Yes I reviewed the patient's medical records. Micheal Inquiry Pt receiving controlled substance: No Vital Signs: 02/11/24 12:14 02/11/24 13:00 02/11/24 13:30 Temperature 97.8 F Temperature Source Oral Pulse Rate 69 74 Pulse Rate [Radial] 81 Respiratory Rate 16 18 Blood Pressure 99/54 L 128/69 Blood Pressure [Right Arm] 135/78 Blood Pressure Mean [Right Arm] 97 Blood Pressure Source [Right Arm] Automatic Cuff Blood Pressure Position [Right Arm] Sitting 02 Sat by Pulse Oximetry 94 L 95 96 Oxygen Delivery Method Room Air Room Air 02/11/24 14:00 02/11/24 14:30 02/11/24 15:01 Temperature Temperature Source Pulse Rate 69 65 64 Pulse Rate [Radial] Respiratory Rate 20 20 18 Blood Pressure 106/52 L 101/49 L 132/56 L Blood Pressure [Right Arm] Blood Pressure Mean [Right Arm] Blood Pressure Source [Right Arm] Blood Pressure Position [Right Arm] 02 Sat by Pulse Oximetry 93 L 92 L 92 L Oxygen Delivery Method Room Air Room Air Room Air 02/11/24 15:30 02/11/24 16:00 Temperature Temperature Source Pulse Rate 63 64 Pulse Rate [Radial] Respiratory Rate 20 Blood Pressure 126/65 123/64 Blood Pressure [Right Arm] Blood Pressure Mean [Right Arm] Blood Pressure Source [Right Arm] Blood Pressure Position [Right Arm] 02 Sat by Pulse Oximetry 91 L 90 L Oxygen Delivery Method Room Air Room Air Orders (Tests/Meds): ED MEDICATIONS Generic Name Dose Route Start Last Admin Trade Name Freq PRN Reason Stop Dose Admin Oxycodone HCl 5 mg 02/11/24 13:31 02/11/24 14:00 Oxycodone 5mg Immediate Release Tablet PO 03/12/24 13:30 5 mg Q4HP PRN Administration Severe Pain (7-10) Discontinued Medications Generic Name Dose Route Start Last Admin Trade Name Freq PRN Reason Stop Dose Admin Methocarbamol 500 mg 02/11/24 13:32 02/11/24 13:48 Methocarbamol 500mg Tablet PO 02/11/24 13:33 500 mg BID ONE Administration ORDERS Category Date Time Status CT bony pelvis Stat Cat Scan 02/11/24 13:31 Completed Femur XR right 2 views [XR femur RT 2V] Stat Exams 02/11/24 13:31 Completed Knee XR right 2 views [XR knee RT 2V] Stat Exams 02/11/24 13:31 Completed XR hip RT 2-3V w/pelvis Stat Exams 02/11/24 12:23 Completed Medical Decision Narrative: In summary, patient is 68-year-old female, evaluated in the emergency department today due to fall. On arrival, patient is hemodynamically stable. On examination, patient has tenderness to right hip and knee. Differential diagnosis includes but is not limited to fracture, dislocation, musculoskeletal strain. Patient given oral oxycodone, oral Robaxin. Workup initiated including x-rays of right hip/femur/knee, CT bony pelvis. Imaging independently interpreted by me and significant for minimally displaced right greater trochanteric femur fracture. On reevaluation, patient's pain is controlled. Dr. Bender, orthopedics, consulted and case discussed. Case also discussed with Dr. Sanchez, [facility]. Per orthopedic surgery, patient's injury is typically nonoperative and patient is appropriate for discharge with outpatient follow-up with advisory to ambulate with walker as tolerated. In shared decision-making with patient and family, they are comfortable with this plan. Prescriptions for Robaxin and Percocet provided. Patient counseled on home care, given strict return precautions and agreeable to plan. Additional history was provided by family. I considered the utility of obtaining full trauma CT imaging, but decided against this because this would not exchange underwriting consultant. I considered admitting the patient to the hospital for observation and pain control, and in shared decision-making with patient and family, decided on outpatient follow-up. Critical Care Critical Care Time Critical Care Time: No
[2024-02-11] MEDS: METHOCARBAMOL 500MG TABLET 500 MG PO (13:48)
[2024-02-11] MEDS: OXYCODONE 5MG IMMEDIATE RELEASE TABLET 5 MG PO (14:00)
--- NOTE | 2024-02-11 15:31 | PC.NURSE ---
CALL PLACED FOR POSSIBLE TRANSFER TO [facility] FOR TRANSFER FOR ORTHO
--- NOTE | 2024-02-11 15:44 | PC.NURSE ---
PT AND FAMILY UPDATED AT THIS TIME. AWAITING CALL BACK FROM [facility]
--- NOTE | 2024-02-11 16:03 | PC.NURSE ---
DR DE JESUS CONSULTING WITH DR NELSON
--- NOTE | 2024-02-11 16:19 | PC.NURSE ---
DR DE JESUS AT BEDSIDE TO UPDATE PT AND FAMILY
== END 2024-02-11 16:47 | disposition home or self-care (01) ==
PROVIDERS: Emergency Provider Student in an Organized Health Care Education/Training Program; PCP Nurse Practitioner Family
DX: S72.111A Displaced fracture of greater trochanter of right femur, initial encounter for closed fracture (principal); M25.551 Pain in right hip; M25.561 Pain in right knee; W18.39XA Other fall on same level, initial encounter
CPT/HCPCS: 72192; 73502; 73552; 73560; 99284

== ENCOUNTER 2024-02-16 19:31 | Observation (INO) | payer MEDICARE, SELFPAY ==
[2024-02-16 19:31] VITALS: BMI 30.2
[2024-02-16 19:37] VITALS: BP 113/74; PULSE 100; RESP 15; TEMP 36.8; O2SAT 100; BMI 30.2
--- NOTE | 2024-02-16 19:37 | ECG_ITS ---
APPROVED REPORT Exam: Resting ECG HR:86 bpm ECG Measurements Heart Rate 86 AXES OH 165 P 88 QRSd 85 QRS 51 QT 375 T 106 QTc 418 Conclusion SINUS RHYTHM Low voltage QRS Electronically signed by : MARINA GUNDERSON, 02/16/2024 21:12:09
--- NOTE | 2024-02-16 19:37 | XR_ITS ---
PROCEDURE INFORMATION: Exam: XR Right Hip Exam date and time: 02/16/2024 7:58 PM Age: 68 years old Clinical indication: Injury or trauma; Fall; Blunt trauma (contusions or hematomas); Right; Hip; Additional info: Fall, known R hip hairline fracture TECHNIQUE: Imaging protocol: Radiologic exam of the right hip. Views: 2 or 3 views hip with pelvis when performed. COMPARISON: CT BONY PELVIS 02/11/2024 1:53 PM FINDINGS: Bones/joints: Post-operative changes of prior left femur fixation with intramedullary femoral sasha and cannulated cross-locking trochanteric nail. Acute minimally displaced fracture in the right greater trochanter. Soft tissues: Unremarkable. IMPRESSION: Acute minimally displaced fracture in the right greater trochanter.
--- NOTE | 2024-02-16 19:37 | XR_ITS ---
PROCEDURE INFORMATION: Exam: XR Chest Exam date and time: 02/16/2024 7:58 PM Age: 68 years old Clinical indication: Injury or trauma; Fall; Blunt trauma (contusions or hematomas) TECHNIQUE: Imaging protocol: Radiologic exam of the chest. Views: 1 view. COMPARISON: CR XR CHEST PORTABLE 12/31/2023 11:46 AM FINDINGS: Lungs: Stable nodular density left upper lobe. Chronic interstitial lung disease. No consolidation. Pleural spaces: Unremarkable. No pleural effusion. No pneumothorax. Heart/Mediastinum: Unremarkable. No cardiomegaly. Bones/joints: Unremarkable. IMPRESSION: No acute findings.
--- NOTE | 2024-02-16 19:40 | CT_ITS ---
PROCEDURE INFORMATION: Exam: CT Cervical Spine Without Contrast Exam date and time: 02/16/2024 7:58 PM Age: 68 years old Clinical indication: Injury or trauma; Fall; Blunt trauma TECHNIQUE: Imaging protocol: Computed tomography of the cervical spine without contrast. Radiation optimization: All CT scans at this facility use at least one of these dose optimization techniques: automated exposure control; mA and/or kV adjustment per patient size (includes targeted exams where dose is matched to clinical indication); or iterative reconstruction. COMPARISON: 1. CT HEAD/BRAIN WO CON 02/16/2024 7:[address] CHEST WO CON 12/01/2023 4:48 PM FINDINGS: Bones: The cervical spine shows relatively preserved alignment of the vertebral bodies with no evidence of acute fractures or dislocations. However, age-related degenerative changes are observed, including mild disc space narrowing and osteophyte formation at multiple levels. These findings are consistent with age related degenerative disease. Lungs: Spiculated nodule in the right upper lobe is unchanged from recent prior thoracic CT, recommend follow-up as per those recommendations. Parenchymal scarring at the left apex is stable. Vasculature: There are atherosclerotic calcifications of the carotid bulbs bilaterally. Soft tissues: Unremarkable. IMPRESSION: 1. Multilevel degenerative change without acute injury identified. 2. Spiculated nodule in the right upper lobe is unchanged from recent prior thoracic CT, recommend follow-up as per those recommendations.
--- NOTE | 2024-02-16 19:40 | CT_ITS ---
PROCEDURE INFORMATION: Exam: CT Head Without Contrast Exam date and time: 02/16/2024 7:56 PM Age: 68 years old Clinical indication: Injury or trauma; Fall; Blunt trauma (contusions or hematomas) TECHNIQUE: Imaging protocol: Computed tomography of the head without contrast. Radiation optimization: All CT scans at this facility use at least one of these dose optimization techniques: automated exposure control; mA and/or kV adjustment per patient size (includes targeted exams where dose is matched to clinical indication); or iterative reconstruction. COMPARISON: 1. CT HEAD/BRAIN WO CON 05/17/2023 3: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 The brain parenchyma appears unremarkable, with no signs of acute intracranial hemorrhage or significant mass effect. There is hypodensity in the subcortical and periventricular white matter which is technically nonspecific but most often related to chronic microvascular disease. Old right basal ganglia infarct versus dilated perivascular space. Cerebral ventricles: Mild ventricular enlargement consistent with age-related cerebral atrophy is noted. Paranasal sinuses: Paranasal sinuses show age-appropriate mucosal thickening. Layering fluid in the left maxillary sinuses noted. Mastoid air cells: Visualized mastoid air cells are well aerated. Bones: There are no skull fractures or bony lesions. Soft tissues: Unremarkable. IMPRESSION: Presumably age-related and chronic changes without acute intracranial abnormality.
[2024-02-16 19:45] LABS: Basophils # 0.1 K/mm3 (0-0.2); Basophils % 0.9 % (0.1-2.0); Eosinophils # 0.4 K/mm3 (0.0-0.4); Eosinophils % 4.5 % (0.1-12.0); Hematocrit 40.1 % (37.0-47.0); Hemoglobin 13.3 g/dL (12.2-16.2); Lymphocytes # 0.7 K/mm3 (0.7-4.5); Lymphocytes % 8.5 % (10-50); Mean Corpuscular HGB Conc 33.3 g/dL (31.8-35.4); Mean Corpuscular Volume 105.1 fl (81-99); Mean Platelet Volume 8.3 fl (7.4-10.4); Monocytes # 0.4 K/mm3 (0.1-1.0); Monocytes % 4.3 % (1.7-9.3); Neutrophils # 6.6 K/mm3 (1.8-7.8); Neutrophils % 81.9 % (37.0-80.0); Platelet Count 317 K/mm3 (142-424); Red Blood Count 3.82 M/mm3 (4.20-5.40); Red Cell Distribution Width 15.1 % (11.5-17.5); White Blood Count 8.1 K/mm3 (4.8-10.8)
[2024-02-16 19:47] LABS: Chloride 106 mmol/L (98-107); Potassium 4.5 mmoL/L (3.5-5.1); Sodium 138 mmol/L (136-145)
--- NOTE | 2024-02-16 19:47 | PC.NURSE ---
Dr. Moeller at bedside. Pt's daughters at bedside
[2024-02-16 19:49] LABS: Blood Urea Nitrogen 27 mg/dl (7-17); Creatinine Clearance Estimated 64 mL/min (50-200); Estimated Glomerular Filt Rate 55 ml/min (>60); GFR (African American) 67 ML/MIN (>60)
[2024-02-16 19:50] LABS: Alanine Aminotransferase 23 U/L (12-78); Albumin Level 4.1 g/dl (3.5-5.0); Albumin/Globulin Ratio 1.4 (1.1-1.8); Alkaline Phosphatase 78 U/L (38-126); Anion Gap 12.5 mEq/L (5-15); Aspartate Amino Transferase 26 U/L (14-36); Bilirubin,Total 0.3 mg/dl (0.2-1.3); Calcium 9.3 mg/dl (8.4-10.2); Carbon Dioxide 24 mmol/L (22.0-30.0); Glucose 145 mg/dl (74-100); Total Protein,Serum 7.1 g/dl (6.3-8.2)
--- NOTE | 2024-02-16 19:54 | PC.NURSE ---
pt to radiology at this time
[2024-02-16 20:03] LABS: Troponin I < 0.01 ng/ml (0.00-0.034)
[2024-02-16 20:31] VITALS: BP 148/68; PULSE 86; RESP 19; O2SAT 96
--- NOTE | 2024-02-16 20:32 | PC.NURSE ---
clean catch ua collected and sent to lab at this time
[2024-02-16 20:41] LABS: Microscopic, Urine URINE MICROSCOPIC (MICROSCOPIC)
[2024-02-16 20:43] LABS: Appearance,Urine CLEAR (Clear); Bilirubin,Urine Negative (Negative); Blood, Urine 2+ (Negative); Color,Urine YELLOW (Yellow); Glucose,Urine (UA) Negative (Negative); Ketones,Urine Negative (Negative); Leukocyte Esterase,Urine Negative (Negative); Nitrate,Urine POSITIVE (Negative); Protein,Urine Negative (Negative); Specific Gravity, Urine 1.025 (1.005-1.030); Urobilinogen,Urine 0.2 EU/dl (0.2)
--- NOTE | 2024-02-16 20:52 | HMH.EDGENADL ---
Discharge Plan Disposition Patient Disposition: Admitted Clinical Impressions Clinical Impression: UTI (urinary tract infection), Delirium Discharge ED Provider: Chuck Moeller General Adult HPI General Chief complaint: Altered Mental Status Stated complaint: fall, AMS Time Seen by Provider: 02/16/24 19:39 Mode of Arrival: EMS Source of Information: Patient and EMS Limitations: Altered Mental Status Description of Symptoms (Recalled from ER Triage Doc. by RN): pt to ED with c/o fall and AMS. Pt is alert and oriented to name, bday, and place. confused of time. stroke screen negative. pt denies hitting head or LOC. EMS reports pt was sitting directly in front toilet. pt is unsure of how she fell or what caused her to fall. PT has hx of recent fall with right hip fracture. pt is diabetic. FS 157 upon arrival. temp 98.3. pt also has hx of UTI's. pt reports she has not taken any of her daily meds today History of Present Illness HPI narrative: Please note that above description of symptoms, in this electronic medical record under categorization of recalled from ER triage doctor by RN are reflective of an initial nursing assessment, however, is not reflective of my full history and physical exam that was personally taken and clarified. Consequentially, this preceding description of symptoms, which may include the patient's categorized chief complaint in the EMR, do not reflect my personal clinical impression, and the ultimate description of history of present illness and patient stated complaints should be deferred to this section of the note. Unless stated otherwise or congruent with this section of the note, additional signs, symptoms, or incongruence should be interpreted as inaccurate with my clinical impression. Related Data Home Medications Medication Instructions Recorded Confirmed atorvastatin 20 mg tablet 20 mg PO HS Cholesterol 90 days 10/26/17 01/07/24 ##90 cetirizine 10 mg tablet 10 mg PO DAILY Allergy symptoms 30 10/26/17 01/07/24 days ##30 clopidogrel 75 mg tablet 75 mg PO DAILY platelet inhibitor 10/26/17 01/07/24 90 days ##90 metformin 1,000 mg tablet 1,000 mg PO BIDWMEAL Diabetes 90 10/26/17 01/07/24 days ##180 aspirin 81 mg tablet,delayed 81 mg PO DAILY Heart health 05/06/18 01/07/24 release atenolol 25 mg tablet 25 mg PO DAILY Heart rate/Blood 06/03/20 01/07/24 pressure escitalopram oxalate 5 mg tablet 5 mg PO DAILY mood 06/03/20 01/07/24 ipratropium 0.5 mg-albuterol 3 mg 3 ml inhalation QIDP PRN Shortness 05/03/22 01/07/24 (2.5 mg base)/3 mL nebulization Of Breath soln allopurinol 100 mg tablet 200 mg PO DAILY Gout 12/27/22 01/07/24 fluticasone fur. 100 mcg-umeclid 1 inh inhalation DAILY COPD 01/17/23 01/07/24 62.5 mcg-vilant 25 mcg inhalat.powder (Trelegy Ellipta) Previous Rx's Medication Instructions Recorded gabapentin 300 mg capsule 600 mg (2 x 300 mg) PO BID Nerve 02/02/23 pain 90 days #360 caps bumetanide 1 mg tablet 1 mg PO BIDL Fluid 30 days #0 tabs 12/04/23 ondansetron HCl 4 mg tablet 4 mg PO Q8H PRN nausea and 12/04/23 vomiting 5 days #15 tabs spironolactone 50 mg tablet 50 mg PO BIDL Fluid 30 days #60 12/04/23 tabs colchicine 0.6 mg tablet 0.3 mg (1/2 x 0.6 mg) PO Q OTHER 01/09/24 DAY #30 tabs itraconazole 100 mg capsule 200 mg (2 x 100 mg) PO BID #60 caps 01/24/24 methocarbamol 500 mg tablet 500 mg PO Q6H PRN muscle spasm #40 02/11/24 tabs oxycodone-acetaminophen 5 mg-325 1 tab PO Q6H PRN pain #12 tabs 02/11/24 mg tablet (Percocet) Allergies Allergy/AdvReac Type Severity Reaction Status Date / Time Sulfa (Sulfonamide Allergy Unknown BLISTERING Verified 01/07/24 15:03 Antibiotics) OF THROAT levofloxacin [From Levaquin] Allergy Verified 01/07/24 15:03 [facility] Disclaimer: The information contained in this section may have been updated after the patient was seen, as this information can be updated by other users. Medical History (Updated 02/16/24 @ 22:35 by Chuck Moeller MD) Gout Smoking greater than 30 pack years COPD mixed type Multiple lung nodules on CT Fungal pneumonia Acute and chronic respiratory failure with hypoxia Intertrochanteric fracture of left hip Closed left hip fracture Acute respiratory failure with hypoxia Pneumonia due to COVID-19 virus Diabetes mellitus Diastolic dysfunction HLD (hyperlipidemia) HTN (hypertension) Subclavian artery stenosis, left PAD (peripheral artery disease) Tobacco use History of placement of stent in LAD coronary artery CAD (coronary artery disease) COPD (chronic obstructive pulmonary disease) ACUÑA (dyspnea on exertion) Surgical History History of hysterectomy History of hip surgery Hx of right coronary artery stent placement Family History Other Asthma Cancer Diabetes Hypertension Social History Smoking Status: Unknown if ever smoked second hand exposure: No alcohol intake: never substance use type: denies use current occupational status: retired Travel in the last 8 weeks: None household members: none housing: house current occupational exposures/hazards: No caffeine: Yes ROS Obtained: Yes unobtainable due to mental status Physical Exam General General appearance: in no apparent distress, in distress and other (Sleeping, arousable to voice, GCS 14) Head Head exam: atraumatic and normocephalic Eye Eye exam: Present normal appearance, PERRL and EOMI ENT ENT exam: Present mucous membranes moist Neck Neck exam: Present normal inspection, full ROM and trachea midline Chest Chest inspection: Present normal inspection Respiratory Respiratory exam: Present normal lung sounds bilaterally; Absent respiratory distress, wheezes, stridor, accessory muscle use or prolonged expiratory phase Cardiovascular Cardiovascular exam: Present regular rate and normal rhythm Abdominal Exam Abdominal exam: Present soft and tenderness; Absent distention, guarding, rebound or rigidity Abdominal tenderness: Present RLQ, LLQ, suprapubic and mild Extremities Exam Extremities exam: Absent edema Neurological Exam Neurological exam: Present alert, oriented X3 (Confused, but answers orientation questions appropriately), CN II-XII intact and other (And HSS); Absent motor sensory deficit Skin Skin exam: Present warm and dry; Absent diaphoresis or erythema Medical Decision Making Medical Records Medical records reviewed: Yes I reviewed the patient's medical records. Micheal Inquiry Pt receiving controlled substance: No Micheal was queried for this patient: No Vital Signs: 02/16/24 19:37 02/16/24 20:31 02/16/24 21:00 Temperature 98.3 F Temperature Source Oral Pulse Rate 86 88 Pulse Rate [Apical] 100 H Respiratory Rate 15 19 26 H Blood Pressure 148/68 H 135/68 Blood Pressure [Right Arm] 113/74 Blood Pressure Mean [Right Arm] 87 Blood Pressure Source Blood Pressure Source [Right Arm] Automatic Cuff Blood Pressure Position 02 Sat by Pulse Oximetry 100 96 95 Oxygen Delivery Method Room Air 02/16/24 22:23 Temperature 98.3 F Temperature Source Oral Pulse Rate 89 Pulse Rate [Apical] Respiratory Rate 20 Blood Pressure 138/54 L Blood Pressure [Right Arm] Blood Pressure Mean [Right Arm] Blood Pressure Source Automatic Cuff Blood Pressure Source [Right Arm] Blood Pressure Position Sitting 02 Sat by Pulse Oximetry Oxygen Delivery Method Room Air Lab Data Lab Results 02/16/24 19:30: WBC 8.1, RBC 3.82 L, Hgb 13.3, Hct 40.1, MCV 105.1 H, MCH 35.0 H, MCHC 33.3, RDW 15.1, Plt Count 317, MPV 8.3, Neut % (Auto) 81.9 H, Lymph % (Auto) 8.5 L, [place] % (Auto) 4.3, Eos % (Auto) 4.5, Baso % (Auto) 0.9, Neut # (Auto) 6.6, Lymph # (Auto) 0.7, [place] # (Auto) 0.4, Eos # (Auto) 0.4, Baso # (Auto) 0.1, Sodium 138, Potassium 4.5, Chloride 106, Carbon Dioxide 24, Anion Gap 12.5, BUN 27 H, Creatinine 1.00, Estimated Creat Clear 64, Estimated GFR 55 L, Est GFR ( Amer) 67, Glucose 145 H, Calcium 9.3, Total Bilirubin 0.3, AST 26, ALT 23, Alkaline Phosphatase 78, Total Creatine Kinase 38, Troponin I < 0.01 02/16/24 19:30: Troponin I < 0.01, NT-Pro-B Natriuret Pep 967 H, Total Protein 7.1, Albumin 4.1, Globulin 3.0, Albumin/Globulin Ratio 1.4 02/16/24 20:13: Urine Color Yellow, Urine Appearance Clear, Urine pH 6.0, Ur Specific [place] 1.025, Urine Protein Negative, Urine Glucose (UA) Negative, Urine Ketones Negative, Urine Blood 2+, Urine Nitrate Positive, Urine Bilirubin Negative, Urine Urobilinogen 0.2, Ur Leukocyte Esterase Negative, Urine RBC Occasional, Urine WBC 5-10, Ur Squamous Epith Cells 3-5, Urine Bacteria 1+ 02/16/24 20:57: VBG pH 7.35, VBG pCO2 39.3, VBG pO2 34.3, VBG HCO3 21.1 L, VBG Total CO2 22.3 L, VBG O2 Saturation 67.7, VBG Base Excess -4.6 L, VBG Lactic Acid 1.8 02/16/24 19:30 02/16/24 19:30 Orders (Tests/Meds): ED MEDICATIONS Generic Name Dose Route Start Last Admin Trade Name Freq PRN Reason Stop Dose Admin Acetaminophen 1,000 mg 02/16/24 21:53 02/16/24 21:59 Acetaminophen 1,000mg/100ml Vial IV 02/16/24 21:54 1,000 mg ONCE ONE Administration Acetaminophen 1,000 mg 02/16/24 23:00 02/16/24 22:23 Acetaminophen 500mg Tab PO 03/17/24 22:59 Not Given Q6 GREG Ceftriaxone Sodium 1 gm/ 50 mls @ 100 mls/hr 02/16/24 21:54 02/16/24 22:00 Sodium Chloride IV 02/16/24 22:23 100 mls/hr ONCE ONE Administration Ketorolac Tromethamine 15 mg 02/16/24 21:53 02/16/24 22:00 Ketorolac 30mg/Ml Vial IV 02/16/24 21:54 15 mg ONCE ONE Administration Ketorolac Tromethamine 30 mg 02/16/24 21:58 Ketorolac 30mg/Ml Vial IV 02/21/24 21:57 Q6HP PRN Moderate Pain (4-6) Methocarbamol 1,500 mg 02/16/24 21:53 02/16/24 22:00 Methocarbamol 500mg Tablet PO 02/16/24 21:54 1,500 mg ONCE ONE Administration Methocarbamol 500 mg 02/17/24 09:00 Methocarbamol 500mg Tablet PO 03/18/24 08:59 BID GREG Nicotine 21 mg 02/16/24 21:53 02/16/24 22:07 Nicotine 21mg/24hr Patch TD 02/16/24 21:54 21 mg ONCE ONE Administration Nicotine 21 mg 02/16/24 21:58 Nicotine 21mg/24hr Patch TD 03/17/24 21:57 DAILYP PRN Nicotine Cravings Ondansetron HCl 4 mg 02/16/24 21:58 Ondansetron 4mg/2ml Vial IV 03/17/24 21:57 Q8HP PRN Nausea ORDERS Category Date Time Status CT cervical spine wo con Stat Cat Scan 02/16/24 19:[address] head/brain wo con Stat Cat Scan 02/16/24 19:40 Completed XR chest portable Stat Exams 02/16/24 19:37 Completed XR hip RT 2-3V w/pelvis Stat Exams 02/16/24 19:37 Completed CK [Creatine Kinase] Stat Lab 02/16/24 19:30 Completed Complete Blood Count Auto Diff AMLAB Lab 02/17/24 06:00 Ordered Complete Blood Count Auto Diff Stat Lab 02/16/24 19:30 Completed Comprehensive Metabolic Panel AMLAB Lab 02/17/24 06:00 Ordered Comprehensive Metabolic Panel Stat Lab 02/16/24 19:30 Completed Magnesium AMLAB Lab 02/17/24 06:00 Ordered NT Pro Brain Natriuretic Pep. Stat Lab 02/16/24 19:30 Completed Troponin I Q3H Lab 02/16/24 19:30 Completed Troponin I Q3H Lab 02/17/24 01:45 Ordered Troponin I Stat Lab 02/16/24 19:30 Completed Urinalysis and Microscopic Stat Lab 02/16/24 20:13 Completed VBG [Venous Blood Gas] Stat RT 02/16/24 20:57 Completed HEART Score History (anamnesis): Slightly suspicious ECG: Normal Age: >65 years Risk factors: 3 or more risk factors Troponin: </= normal limit HEART Score: 4 Medical Decision Narrative: 68-year-old 3 of recent fall with greater trochanter fracture, for pneumonia with cavitary lesion following with pulmonology, lung cancer, CHF, COPD, type 2 diabetes presenting with weakness and altered mental status. Per family, the last 24 to 36 hours, patient has been complaining of dysuria and polyuria. Started with home more confused and tired yesterday 02/14, today, 02/15 has had minimal p.o. intake including liquids or solids. No fevers, chills, vomiting, diarrhea, but patient was on the toilet just prior to arrival, became weak, lowered himself down to the ground. States she does not think she hit her head, not currently having tenderness anywhere about her lower abdomen. It is mild, absent when not applying pressure. Does not radiate. History was obtained via conversation with patient and patient's family. On arrival, patient hemodynamically stable, alert, oriented x4, appropriate, GCS 15, moving all extremities spontaneously, pupils equal and reactive to light. Full physical exam performed and significant for tired appearing woman in no acute distress. GCS 14, arousable to voice. Answering questions and confused manner, but oriented when prompted with questions. NIHSS is 0. Cardiopulmonary exam with right upper sternal border murmur, otherwise unremarkable. Lungs are clear to auscultation bilaterally anterior and posteriorly, no focal wheezes. Pulses are equal and symmetric in bilateral upper and lower extremities, no lower extremity edema. Differential includes UTI, pneumonia, arrhythmia, ACS, ME, intracranial bleed, cervical spine injury, concussion, delirium, polypharmacy, sepsis, among others. Patient was given, Toradol, Robaxin for right lower extremity pain for symptomatic management and correction of underlying abnormalities. Workup independently interpreted and significant for nonactionable CBC or chemistry. Kidney function normal, BNP and troponin negative. UA with concern for UTI. Chest x-ray without acute concern for pneumonia, CT head and CT C-spine independently interpreted and negative for any acute abnormality. See radiology read for full review of final results. Independent interpretation of EKG shows sinus rhythm [address] or T wave changes concerning for acute schema. MT 165, QRS 85, QTc 418. [place] normal. Heart score 4. Patient given ceftriaxone. On reevaluation, patient much less confused, still agitated, this is normal for patient when she has UTI and delirium. Hospital medicine contacted and case was discussed at length, patient to be admitted for UTI and infectious delirium. Because patient high risk for clinical decompensation, deemed appropriate for inpatient admission. Results were relayed to patient who voiced understanding and patient was agreeable to inpatient admission and management. Patient was admitted to the hospital for further definitive management. [employer] disclaimer Much of this encounter note is an electronic primary operator spoken language to printed text. Electronic primary operator of the spoken language may permit errors. Although I have reviewed the note, some errors may still exist. Critical Care Critical Care Time Critical Care Time: No
[2024-02-16 21:00] VITALS: BP 135/68; PULSE 88; RESP 26; O2SAT 95
[2024-02-16 21:05] LABS: Bacteria,Urine 1+ /lpf; RBC,Urine Occasional #/hpf (0-3)
[2024-02-16 21:10] LABS: Creatine Kinase 38 U/L (30-135)
--- NOTE | 2024-02-16 21:15 | PC.NURSE ---
Updated daughters on pt's results thus far. Also obtained VBG and notified lab & respiratory on new sample sent to lab.
[2024-02-16 21:17] LABS: Lactate Venous 1.8 mmol/L (0.4-2.0); VBG Base Excess -4.6 mmol/L (-2.4-2.3); VBG HCO3 21.1 mmol/L (23-30); VBG Oxygen Saturation 67.7 % (50-70); VBG PCO2 39.3 mmol/L (35-51); VBG PH 7.35 mmol/L (7.31-7.41); VBG PO2 34.3 mmol/L (28-40); VBG Total CO2 22.3 mmol/L (23-27)
[2024-02-16 21:21] LABS: NT Pro Brain Natriuretic Pep. 967 pg/mL (0-125)
[2024-02-16 21:27] LABS: Troponin I < 0.01 ng/ml (0.00-0.034)
--- NOTE | 2024-02-16 21:58 | PC.NURSE ---
ED doctor on phone with hospitalist, fang notified of need for bed
[2024-02-16] MEDS: ACETAMINOPHEN 1,000MG/100ML VIAL 1000 MG IV (21:59)
[2024-02-16] MEDS: METHOCARBAMOL 500MG TABLET 1500 MG PO (22:00)
[2024-02-16] MEDS: CEFTRIAXONE SODIUM 1 GM in 0.9 % SODIUM CHLORIDE 50 ML IV (22:00)
[2024-02-16] MEDS: KETOROLAC 30MG/ML VIAL 15 MG IV (22:00)
--- NOTE | 2024-02-16 22:00 | PC.NURSE ---
[employer] notified of need for bed
--- NOTE | 2024-02-16 22:03 | EXP.HP ---
History of Present Illness *Admission Date: 02/16/24 *Reason for visit:: AMS *History of present illness: This is a 68-year-old PMHx of recent fall with greater trochanter fracture, pneumonia with cavitary lesion following with pulmonology, lung cancer, CHF, COPD, type 2 diabetes presenting with weakness and altered mental status. Patient non cooperative with interview. Asking to let her sleep most history obtained from ED. Per ED family reported the patient has been complaining of dysuria and polyuria. Started with home more confused and tired yesterday 02/14, today, 02/15 has had minimal p.o. intake including liquids or solids. No fevers, chills, vomiting, diarrhea, but patient was on the toilet just prior to arrival, became weak, lowered himself down to the ground. States she does not think she hit her head, not currently having tenderness anywhere about her lower abdomen. It is mild, absent when not applying pressure. Does not radiate. History was obtained via conversation with patient and patient's family. [facility] Disclaimer: The information contained in this section may have been updated after the patient was seen, as this information can be updated by other users. Medical History (Updated 02/17/24 @ 07:45 by Aníbal Thompson APRN) Gout Smoking greater than 30 pack years COPD mixed type Multiple lung nodules on CT Fungal pneumonia Acute and chronic respiratory failure with hypoxia Intertrochanteric fracture of left hip Closed left hip fracture Acute respiratory failure with hypoxia Pneumonia due to COVID-19 virus Diabetes mellitus Diastolic dysfunction HLD (hyperlipidemia) HTN (hypertension) Subclavian artery stenosis, left PAD (peripheral artery disease) Tobacco use History of placement of stent in LAD coronary artery CAD (coronary artery disease) COPD (chronic obstructive pulmonary disease) ACUÑA (dyspnea on exertion) Surgical History History of hysterectomy History of hip surgery Hx of right coronary artery stent placement Family History Other Asthma Cancer Diabetes Hypertension Social History (Updated 02/16/24 @ 23:05 by Rama Wilkes RN) Smoking Status: Current every day smoker tobacco type: cigarettes packs per day: 1 second hand exposure: No alcohol intake: never substance use type: denies use current occupational status: retired Travel in the last 8 weeks: None household members: none housing: house current occupational exposures/hazards: No caffeine: Yes Review of Systems Review of Systems Review of systems:: unable to obtain Meds Home Medications and Allergies Home Medications Medication Instructions Recorded Confirmed Type atorvastatin 20 mg tablet 20 mg PO HS Cholesterol 90 days 10/26/17 02/16/24 History ##90 cetirizine 10 mg tablet 10 mg PO DAILY Allergy symptoms 30 10/26/17 02/16/24 History days ##30 clopidogrel 75 mg tablet 75 mg PO DAILY platelet inhibitor 10/26/17 02/16/24 History 90 days ##90 metformin 1,000 mg tablet 1,000 mg PO BIDWMEAL Diabetes 90 10/26/17 02/16/24 History days ##180 aspirin 81 mg tablet,delayed 81 mg PO DAILY Heart health 05/06/18 02/16/24 History release atenolol 25 mg tablet 25 mg PO DAILY Heart rate/Blood 06/03/20 02/16/24 History pressure escitalopram oxalate 5 mg tablet 5 mg PO DAILY mood 06/03/20 02/16/24 History ipratropium 0.5 mg-albuterol 3 mg 3 ml inhalation QIDP PRN Shortness 05/03/22 02/16/24 History (2.5 mg base)/3 mL nebulization Of Breath soln allopurinol 100 mg tablet 200 mg PO DAILY Gout 12/27/22 02/16/24 History fluticasone fur. 100 mcg-umeclid 1 inh inhalation DAILY COPD 01/17/23 02/16/24 History 62.5 mcg-vilant 25 mcg inhalat.powder (Trelegy Ellipta) gabapentin 300 mg capsule 600 mg (2 x 300 mg) PO BID Nerve 02/02/23 02/16/24 Rx pain 90 days #360 caps bumetanide 1 mg tablet 1 mg PO BIDL Fluid 30 days #0 tabs 12/04/23 02/16/24 Rx ondansetron HCl 4 mg tablet 4 mg PO Q8H PRN nausea and 12/04/23 02/16/24 Rx vomiting 5 days #15 tabs spironolactone 50 mg tablet 50 mg PO BIDL Fluid 30 days #60 12/04/23 02/16/24 Rx tabs colchicine 0.6 mg tablet 0.3 mg (1/2 x 0.6 mg) PO Q OTHER 01/09/24 02/16/24 Rx DAY #30 tabs itraconazole 100 mg capsule 200 mg (2 x 100 mg) PO BID #60 caps 01/24/24 02/16/24 Rx methocarbamol 500 mg tablet 500 mg PO Q6H PRN muscle spasm #40 02/11/24 02/16/24 Rx tabs oxycodone-acetaminophen 5 mg-325 1 tab PO Q6H PRN pain #12 tabs 02/11/24 02/16/24 Rx mg tablet (Percocet) New Prescriptions to Start Prescriptions: Allergies Allergy/AdvReac Type Severity Reaction Status Date / Time Sulfa (Sulfonamide Allergy Unknown BLISTERING Verified 01/07/24 15:03 Antibiotics) OF THROAT levofloxacin [From Levaquin] Allergy Verified 01/07/24 15:03 Exam Data for Last 24 hours Vital signs and Labs for Last 24 Hours: Temp Pulse Resp BP Pulse Ox O2 Del Method 98.3 F 88 26 H 135/68 95 Room Air 02/16/24 19:37 02/16/24 21:00 02/16/24 21:00 02/16/24 21:00 02/16/24 21:00 02/16/24 19:37 Laboratory Results - last 24 hr 02/16/24 19:30: WBC 8.1, RBC 3.82 L, Hgb 13.3, Hct 40.1, MCV 105.1 H, MCH 35.0 H, MCHC 33.3, RDW 15.1, Plt Count 317, MPV 8.3, Neut % (Auto) 81.9 H, Lymph % (Auto) 8.5 L, Hall % (Auto) 4.3, Eos % (Auto) 4.5, Baso % (Auto) 0.9, Neut # (Auto) 6.6, Lymph # (Auto) 0.7, Hall # (Auto) 0.4, Eos # (Auto) 0.4, Baso # (Auto) 0.1, Sodium 138, Potassium 4.5, Chloride 106, Carbon Dioxide 24, Anion Gap 12.5, BUN 27 H, Creatinine 1.00, Estimated Creat Clear 64, Estimated GFR 55 L, Est GFR ( Amer) 67, Glucose 145 H, Calcium 9.3, Total Bilirubin 0.3, AST 26, ALT 23, Alkaline Phosphatase 78, Total Creatine Kinase 38, Troponin I < 0.01 02/16/24 19:30: Troponin I < 0.01, NT-Pro-B Natriuret Pep 967 H, Total Protein 7.1, Albumin 4.1, Globulin 3.0, Albumin/Globulin Ratio 1.4 02/16/24 20:13: Urine Color Yellow, Urine Appearance Clear, Urine pH 6.0, Ur Specific [place] 1.025, Urine Protein Negative, Urine Glucose (UA) Negative, Urine Ketones Negative, Urine Blood 2+, Urine Nitrate Positive, Urine Bilirubin Negative, Urine Urobilinogen 0.2, Ur Leukocyte Esterase Negative, Urine RBC Occasional, Urine WBC 5-10, Ur Squamous Epith Cells 3-5, Urine Bacteria 1+ 02/16/24 20:57: VBG pH 7.35, VBG pCO2 39.3, VBG pO2 34.3, VBG HCO3 21.1 L, VBG Total CO2 22.3 L, VBG O2 Saturation 67.7, VBG Base Excess -4.6 L, VBG Lactic Acid 1.8 Temp Pulse Resp BP Pulse Ox O2 Del Method O2 Flow Rate 98.9 F 91 H 24 129/87 95 Nasal Cannula 4 12/01/23 03:29 12/01/23 03:29 12/01/23 03:29 12/01/23 03:29 12/01/23 02:31 12/01/23 03:29 12/01/23 03:29 Laboratory Results - last 24 hr 12/01/23 01:59: Urine Color Yellow, Urine Appearance Sl cloudy, Urine pH 7.5, Ur Specific [place] 1.015, Urine Protein 1+, Urine Glucose (UA) Negative, Urine Ketones Negative, Urine Blood Negative, Urine Nitrate Positive, Urine Bilirubin Negative, Urine Urobilinogen 0.2, Ur Leukocyte Esterase Negative, Urine RBC None, Urine WBC 10-20, Ur Squamous Epith Cells 5-10, Urine Bacteria 3+ 12/01/23 02:06: VBG pH 7.41, VBG pCO2 42.1, VBG pO2 28.5, VBG HCO3 26.3, VBG Total CO2 27.6 H, VBG O2 Saturation 55.5, VBG Base Excess 1.7, VBG Lactic Acid 2.0 03/16/24 02:11: WBC 6.4, RBC 4.36, Hgb 14.7, Hct 46.9, MCV 107.6 H, MCH 33.8 H, MCHC 31.4 L, RDW 15.4, Plt Count 222, MPV 8.5, Neut % (Auto) 82.9 H, Lymph % (Auto) 10.1, Hall % (Auto) 4.9, Eos % (Auto) 0.9, Baso % (Auto) 1.2, Neut # (Auto) 5.3, Lymph # (Auto) 0.7, Hall # (Auto) 0.3, Eos # (Auto) 0.1, Baso # (Auto) 0.1, Sodium 138, Potassium 4.0, Chloride 102, Carbon Dioxide 26, Anion Gap 14.0, BUN 25 H, Creatinine 1.40 H, Estimated Creat Clear 41, Estimated GFR 37 L, Est GFR ( Amer) 45 L, Glucose 205 H, Lactate 1.3, Calcium 9.6, Total Bilirubin 0.4, AST 33, ALT 31, Alkaline Phosphatase 136 H, Troponin I < 0.01, NT-Pro-B Natriuret Pep 1270 H, Total Protein 7.7, Albumin 4.7, Globulin 3.0, Albumin/Globulin Ratio 1.6 12/01/23 02:25: SARS-CoV-2 (PCR) Not detected, Influenza A Untype (PCR) Not detected, Influenza Type B (PCR) Not detected I & O for Last 24 hours: Intake & Output 02/13/24 02/14/24 02/15/24 02/16/24 23:59 23:59 23:59 23:59 Weight 74.843 kg Intake & Output 11/28/23 11/29/23 11/30/23 12/01/23 23:59 23:59 23:59 23:59 Weight 68.039 kg Constitutional Constitutional: mild distress and chronically ill appearing *Routine HEENT Exam Head: Present normocephalic and atraumatic Eye: Present EOMI and PERRL ENT: Present mucous membranes moist and mucous membranes dry *Routine Neck Exam Neck: Present full ROM and JVD *Routine Respiratory Exam Respiratory: Present wheezes and symmetric chest movement *Routine Cardiovascular Exam Cardiovascular: Present RRR *Routine Abdominal Exam Abdominal: Present soft and normoactive bowel sounds; Absent tenderness *Routine Rectal Exam Rectal:: deferred *Routine Genitalia Exam Genitalia:: deferred *Routine Extremities Exam Extremities: Present full ROM *Routine Skin Exam Skin: Present intact *Routine Neurological Exam Neurological: Present alert and oriented X3 H&P: Result Imaging and Cardiology EKG: Status: image reviewed by me, Preliminary report and final report Chest x-ray: Status: image reviewed by me, Preliminary report and final report CT scan - head: Status: image reviewed by me, Preliminary report and final report Assessment and Plan *Assessment and plan (1) Delirium: Status: Acute Category: Medical Code(s): R41.0 - Disorientation, unspecified (2) UTI (urinary tract infection): Status: Acute Qualifiers: Urinary tract infection type: site unspecified Hematuria presence: without hematuria Qualified Code(s): N39.0 - Urinary tract infection, site not specified Category: Medical Code(s): N39.0 - Urinary tract infection, site not specified (3) Closed fracture of greater trochanter of femur: Status: Acute Qualifiers: Encounter type: initial encounter Fracture alignment: displaced Laterality: right Qualified Code(s): S72.111A - Displaced fracture of greater trochanter of right femur, initial encounter for closed fracture Category: Medical Code(s): S72.113A - Displaced fracture of greater trochanter of unspecified femur, initial encounter for closed fracture (4) Fall: Status: Acute Qualifiers: Encounter type: initial encounter Qualified Code(s): W19.XXXA - Unspecified fall, initial encounter Category: Medical Code(s): W19.XXXA - Unspecified fall, initial encounter (5) COPD mixed type: Status: Acute Category: Medical Code(s): J44.9 - Chronic obstructive pulmonary disease, unspecified (6) CHF (congestive heart failure): Status: Acute Qualifiers: Heart failure type: unspecified Heart failure chronicity: chronic Qualified Code(s): I50.9 - Heart failure, unspecified Category: Medical Code(s): I50.9 - Heart failure, unspecified (7) CAD (coronary artery disease): Problem Comment: APR 2022-Severe ostial mid left main disease as described Successful stenting of the ostial proximal mid distal left main artery reducing the stenosis to less than 10% giving excellent angiograph results Preserved ejection fraction Normal left ventricular end-diastolic pressure Persistent stenosis in a large posterior lateral branch which is best managed medically Status: Chronic Qualifiers: Coronary Disease-Associated Artery/Lesion type: [place] artery [place] vs. transplanted heart: [place] heart Associated angina: without angina Qualified Code(s): I25.10 - Atherosclerotic heart disease of [place] coronary artery without angina pectoris Category: Medical Code(s): I25.10 - Atherosclerotic heart disease of [place] coronary artery without angina pectoris (8) HLD (hyperlipidemia): Status: Chronic Qualifiers: Hyperlipidemia type: mixed hyperlipidemia Qualified Code(s): E78.2 - Mixed hyperlipidemia Category: Medical Code(s): E78.5 - Hyperlipidemia, unspecified (9) HTN (hypertension): Status: Chronic Qualifiers: Hypertension type: essential hypertension Qualified Code(s): I10 - Essential (primary) hypertension Category: Medical Code(s): I10 - Essential (primary) hypertension (10) PAD (peripheral artery disease): Status: Acute Category: Medical Code(s): I73.9 - Peripheral vascular disease, unspecified (11) Diabetes mellitus: Status: Acute Qualifiers: Diabetes mellitus type: type 2 Diabetes mellitus alf insulin 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 Diabetes mellitus complication status: with other specified complication Qualified Code(s): E11.69 - Type 2 diabetes mellitus with other specified complication Category: Medical Code(s): E11.9 - Type 2 diabetes mellitus without complications (12) Fibromyalgia: Status: Acute Category: Medical Code(s): M79.7 - Fibromyalgia (13) Tobacco use: Status: Chronic Category: Social Hx Code(s): Z72.0 - Tobacco use Plan 68-year-old PMHx of recent fall with greater trochanter fracture, pneumonia with cavitary lesion following with pulmonology, lung cancer, CHF, COPD, type 2 diabetes presenting with weakness and altered mental status. On arrival, patient hemodynamically stable, alert, oriented x4, appropriate, GCS 15, moving all extremities spontaneously, pupils equal and reactive to light. Full physical exam performed and significant for tired appearing woman in no acute distress. GCS 14, arousable to voice. Answering questions and confused manner, but oriented when prompted with questions. NIHSS is 0. Cardiopulmonary exam with right upper sternal border murmur, otherwise unremarkable. Lungs are clear to auscultation bilaterally anterior and posteriorly, no focal wheezes. urine concerned for UTI stated on abx. ED requested admission. Agreed for it. Plan as follow: UTI: continue ceft. Culture pending. Mentation is improved Cavitary pneumonia Acute on chronic hypoxemic respiratory failure COPD Lung cancer Follow with culture results - Continue DuoNebs every 6 hours along with Pulmicort every 12 scheduled - Continue nasal cannula oxygen supplementation to maintain O2 saturation above 90%, below 95%. Currently on 4 L. -Continue prednisone 40 mg daily Repeat CBC, CMP, magnesium ordered for the morning. chronic heart failure with preserved ejection fraction. CAD Hyperlipidemia PAD - Strict ins and outs - resumed home meds DM: Continue sliding scale insulin with fingersticks ACHS TOBACCO ABUSE: nicotine patch prn FULL CODE DIABETIC DIET DVT: LOVENOX SQ
[2024-02-16] MEDS: NICOTINE 21MG/24HR PATCH 21 MG TD (22:07)
--- NOTE | 2024-02-16 22:09 | PC.NURSE ---
nicotine patch placed on right upper arm
[2024-02-16 22:23] VITALS: BP 138/54; PULSE 89; RESP 20; TEMP 36.8; O2SAT 93
--- NOTE | 2024-02-16 22:23 | PC.NURSE ---
report given to ruthy CASON now
[2024-02-16 23:02] VITALS: BP 129/57; PULSE 91; RESP 23; TEMP 36.8; O2SAT 94; BMI 28.1
[2024-02-16] MEDS: GABAPENTIN 300MG CAPSULE 600 MG PO (23:38)
[2024-02-17] VITALS: BP 117/61; PULSE 79; RESP 22; TEMP 36.7; O2SAT 98
[2024-02-17 00:13] VITALS: PULSE 94; O2SAT 94
[2024-02-17 02:04] LABS: Troponin I < 0.01 ng/ml (0.00-0.034)
[2024-02-17 04:00] VITALS: BP 96/47; PULSE 79; RESP 20; TEMP 37.1; O2SAT 94; BMI 28.9
[2024-02-17 05:56] LABS: POC Glucose,Bedside 123 (70-110)
[2024-02-17] MEDS: OXYCODONE 5MG W/APAP 325MG TABLET 1 EACH PO ×2 (06:11→09:58)
--- NOTE | 2024-02-17 06:19 | PC.WOUNDNOTE ---
open skin tear to right wrist open skin tear to left forearm/wrist
--- NOTE | 2024-02-17 06:53 | PC.NURSE ---
Pt is alert and oriented x4, and currently tolerating 2L well. Pt arrived to the unit near the beginning of this shift. Pt has c/o pain this shift and has been treated per MAR. Multiple bruises noted to Pt arms, and one large one on her right hip. Pt has a skin tear on bilateral wrists and both have been cleaned and dressed.
[2024-02-17 07:21] LABS: Basophils # 0.1 K/mm3 (0-0.2); Basophils % 1.2 % (0.1-2.0); Eosinophils # 0.4 K/mm3 (0.0-0.4); Eosinophils % 7.8 % (0.1-12.0); Hematocrit 33.8 % (37.0-47.0); Lymphocytes # 1.2 K/mm3 (0.7-4.5); Lymphocytes % 25.9 % (10-50); Mean Corpuscular HGB Conc 33.3 g/dL (31.8-35.4); Mean Corpuscular Hemoglobin 34.7 pg (27.0-31.2); Mean Platelet Volume 8.4 fl (7.4-10.4); Monocytes # 0.4 K/mm3 (0.1-1.0); Monocytes % 8.4 % (1.7-9.3); Neutrophils # 2.6 K/mm3 (1.8-7.8); Neutrophils % 56.7 % (37.0-80.0); Platelet Count 274 K/mm3 (142-424); Red Blood Count 3.25 M/mm3 (4.20-5.40); Red Cell Distribution Width 15.5 % (11.5-17.5); White Blood Count 4.5 K/mm3 (4.8-10.8)
[2024-02-17 07:25] LABS: Chloride 109 mmol/L (98-107); Sodium 137 mmol/L (136-145)
[2024-02-17 07:26] LABS: Potassium 3.8 mmoL/L (3.5-5.1)
[2024-02-17 07:28] LABS: Alanine Aminotransferase 13 U/L (12-78); Alkaline Phosphatase 63 U/L (38-126); Anion Gap 8.8 mEq/L (5-15); Aspartate Amino Transferase 19 U/L (14-36); Bilirubin,Total 0.2 mg/dl (0.2-1.3); Blood Urea Nitrogen 21 mg/dl (7-17); Carbon Dioxide 23 mmol/L (22.0-30.0); Creatinine Clearance Estimated 61 mL/min (50-200); Estimated Glomerular Filt Rate 62 ml/min (>60); GFR (African American) 75 ML/MIN (>60)
[2024-02-17 07:29] LABS: Albumin/Globulin Ratio 1.3 (1.1-1.8); Calcium 8.2 mg/dl (8.4-10.2); Globulin 2.4 g/dL (1.3-3.2); Glucose 118 mg/dl (74-100); Magnesium 1.4 mg/dl (1.6-2.3); Total Protein,Serum 5.4 g/dl (6.3-8.2)
[2024-02-17 08:00] VITALS: BP 105/52; PULSE 88; RESP 22; TEMP 36.6; O2SAT 92
[2024-02-17 08:24] LABS: Hemoglobin 11.3 g/dL (12.2-16.2)
[2024-02-17] MEDS: FLUTICASONE/UMECLIDIN/VILANTER 100/62.5/25MCG INHALER 1 PUFF IH (09:02)
[2024-02-17 09:03] VITALS: O2SAT 95
--- NOTE | 2024-02-17 09:19 | HMH.PHAINT1 ---
Pharmacy Intervention Comments: MEDICATION RECONCILIATION COMPLETE USING LIST FROM MOST RECENT PULMONOLOGY OFFICE VISIT AND EXTERNAL PHARMACY FILL HISTORY.
[2024-02-17] MEDS: CITALOPRAM 10MG TABLET 10 MG PO (09:51)
[2024-02-17] MEDS: SPIRONOLACTONE 25MG TABLET 50 MG PO (09:51)
[2024-02-17] MEDS: LORATADINE 10MG TABLET 10 MG PO (09:51)
[2024-02-17] MEDS: METHOCARBAMOL 500MG TABLET 500 MG PO (09:55)
[2024-02-17] MEDS: CLOPIDOGREL 75MG TAB 75 MG PO (09:55)
[2024-02-17] MEDS: GABAPENTIN 600MG TABLET 600 MG PO (09:55)
[2024-02-17] MEDS: BUMETANIDE 1 MG TABLET PO (09:55)
[2024-02-17] MEDS: ATENOLOL 25MG TABLET 25 MG PO (09:56)
[2024-02-17] MEDS: ALLOPURINOL 100MG TABLET 200 MG PO (09:56)
[2024-02-17] MEDS: ASPIRIN EC 81MG TABLET 81 MG PO (09:56)
--- NOTE | 2024-02-17 11:41 | HMH.PTEV ---
Physical Therapy Evaluation Rehab PT IP Evaluation Start: 02/16/24 21:58 Freq: ONCE Status: Active Protocol: Document 02/17/24 11:22 ADI (Rec: 02/17/24 11:41 ADI [id number]) Subjective/History History History Pt is a 68 y/o female who reported to [facility] ED on 02/16/24 with weakness and AMS. Per ED family reported the patient has been complaining of dysuria and polyuria. Started with home more confused and tired yesterday 02/14, today, has had minimal p.o. intake including liquids or solids. No fevers, chills, vomiting, diarrhea, but patient was on the toilet just prior to arrival, became weak, lowered himself down to the ground. States she does not think she hit her head, not currently having tenderness anywhere about her lower abdomen. It is mild, absent when not applying pressure. Does not radiate. History was obtained via conversation with patient and patient's family. Medical History: Gout, Smoking greater than 30 pack years, COPD mixed type, Multiple lung nodules on CT, Fungal pneumonia, Acute and chronic respiratory failure with hypoxia, Intertrochanteric fracture of left hip, Closed left hip fracture, Acute respiratory failure with hypoxia, Pneumonia due to COVID-19 virus, Diabetes mellitus, Diastolic dysfunction, HLD ( hyperlipidemia), HTN ( hypertension), Subclavian artery stenosis, left, PAD ( peripheral artery disease), Tobacco use, History of placement of stent in LAD coronary artery, CAD (coronary artery disease), COPD ( chronic obstructive pulmonary disease), ACUÑA (dyspnea on exertion) Subjective Subjective Pt reports she lives in a multilevel home however her bedroom/bathroom are on the first floor. Pt reports only one step without HR to enter the home. Pt reports she lives with her son who is present most of the time. Pt reports he helps her with a lot of things around the house. Pt reports prior to hospitalization she was independent with ADLs such as dressing and bathing. Pt reports her son and daughters drive her to where she needs to go. Pt reports she uses a rollator walker for all ambulation. Pt reports she fell last Sunday due to a snake being close to her foot. Pt had a R hip xray on 02/16/24 with impression of Acute minimally displaced fracture in the right greater trochanter. Pt reports moderate-severe pain of the R hip to her knee with movement and ambulation that improves with rest. Pt denies numbness/ tingling. Pt reports she is supposed to see an orthopedic doctor on 02/21/24 and has been ambulating with assist WBAT to the bathroom with nursing. Pt reports she uses 3L of supplemental oxygen at night time at home. Pt is currently on 2L NC, denies SOA. Rehab PT IP Eval Objective Appearance Patient Behavior Appropriate,Cooperative Patient Orientation Place,Name,Birthday Difficulty following instructions none Speech Pattern Clear,Appropriate Ambulation Patient Able to Ambulate Yes Ambulation Observation IP General Gait Pattern Observation Antalgic Gait,Decrease Weight Bear (R),Decrease Stride Lngth (R) Ambulation Distance (feet) 10 Ambulation Assistive Device Rolling Walker Ambulation Ability Supervision/Stand by Balance Ability to Arise Able, uses arms to help Sitting Balance Steady, safe Standing Balance Steady, wide stance Dynamic Sitting Balance Ability Good Dynamic Standing Balance Ability Fair Transfers Bed Transfer Ability Independent Sit to Stand Bed Transfer Ability Independent Pain Right Hip Pain Intensity 8 Rehab PT IP prob,goals,plan Problems Date of Evaluation: 02/17/24 PT IP Problems Other Other Pt Problem orthopedic recommendations regarding R hip fracture Rehab Potential Rehab Potential Innapropriate for Skilled Therapy Discharge Plan PT Discharge Plan Pt seems to be at current baseline status and is appropriate to discharge home with family assist once deemed medically stable by MD. Pt educated to use rollator walker/RW for ambulation to decrease fall risk/pain and minimize weightbearing on the RLE until further orthopedic recommendations are provided. Eval Complexity Eval Charge Codes 79888 - Moderate Complexity PHYSICIAN CERTIFICATION: I certify the specified therapy services for [place] are required, authorized, and reviewed every 30 days.
[2024-02-17] MEDS: ONDANSETRON 4MG/2ML VIAL 4 MG IV (11:47)
[2024-02-17] MEDS: PROMETHAZINE HCL 25MG/ML 1ML VIAL 12.5 MG IV (11:57)
[2024-02-17] MEDS: SODIUM CHLORIDE 0.9% 25ML BAG 25 ML IV (11:57)
[2024-02-17 12:12] LABS: POC Glucose,Bedside 150 (70-110)
--- NOTE | 2024-02-17 13:21 | P.DS_ITS ---
General Admission date:: 02/16/24 Discharge date: 02/17/24 HPI HPI HPI: This is a 68-year-old PMHx of recent fall with greater trochanter fracture, pneumonia with cavitary lesion following with pulmonology, lung cancer, CHF, COPD, type 2 diabetes presenting with weakness and altered mental status. Patient non cooperative with interview. Asking to let her sleep most history obtained from ED. Per ED family reported the patient has been complaining of dysuria and polyuria. Started with home more confused and tired yesterday 02/14, today, 02/15 has had minimal p.o. intake including liquids or solids. No fevers, chills, vomiting, diarrhea, but patient was on the toilet just prior to arrival, became weak, lowered himself down to the ground. States she does not think she hit her head, not currently having tenderness anywhere about her lower abdomen. It is mild, absent when not applying pressure. Does not radiate. History was obtained via conversation with patient and patient's family. Hospital Course Hospital Course Hospital Course: 68-year-old PMHx of recent fall with greater trochanter fracture, pneumonia with cavitary lesion following with pulmonology, lung cancer, CHF, COPD, type 2 diabetes presenting with weakness and altered mental status. On arrival, patient hemodynamically stable, alert, oriented x4, appropriate, GCS 15, moving all extremities spontaneously, pupils equal and reactive to light. Full physical exam performed and significant for tired appearing woman in no acute distress. GCS 14, arousable to voice. Answering questions and confused manner, but oriented when prompted with questions. NIHSS is 0. Cardiopulmonary exam with right upper sternal border murmur, otherwise unremarkable. Lungs are clear to auscultation bilaterally anterior and posteriorly, no focal wheezes. urine concerned for UTI stated on abx. ED requested admission. Agreed for it. Plan as follow: UTI: continue ceft. Culture pending. Mentation is improved Cavitary pneumonia Acute on chronic hypoxemic respiratory failure - resolved COPD Lung cancer Patient was admitted for AMS in the setting of UTI, that has improved, patient denied any dysuria at discharge, she denied any other complains, patient will be started on oral cefuroxime for 1 week and follow up with PCP as Outpatient, patient agreed with the discharge plan and will be discharged in stable condition. Exam Data for Last 24 hours Vital signs and Labs for Last 24 Hours: Temp Pulse Resp BP Pulse Ox O2 Del Method O2 Flow Rate 97.8 F 88 22 105/52 L 95 Nasal Cannula 3 02/17/24 08:00 02/17/24 08:00 02/17/24 08:00 02/17/24 08:00 02/17/24 09:03 02/17/24 11:00 02/17/24 11:00 Laboratory Results - last 24 hr 02/16/24 19:30: WBC 8.1, RBC 3.82 L, Hgb 13.3, Hct 40.1, MCV 105.1 H, MCH 35.0 H , MCHC 33.3, RDW 15.1, Plt Count 317, MPV 8.3, Neut % (Auto) 81.9 H, Lymph % (Auto) 8.5 L, [place] % (Auto) 4.3, Eos % (Auto) 4.5, Baso % (Auto) 0.9, Neut # (Auto) 6.6, Lymph # (Auto) 0.7, [place] # (Auto) 0.4, Eos # (Auto) 0.4, Baso # (Auto) 0.1, Sodium 138, Potassium 4.5, Chloride 106, Carbon Dioxide 24, Anion Gap 12.5, BUN 27 H, Creatinine 1.00, Estimated Creat Clear 64, Estimated GFR 55 L, Est GFR ( Amer) 67, Glucose 145 H, Calcium 9.3, Total Bilirubin 0.3, AST 26, ALT 23, Alkaline Phosphatase 78, Total Creatine Kinase 38, Troponin I < 0.01 02/16/24 19:30: Troponin I < 0.01, NT-Pro-B Natriuret Pep 967 H, Total Protein 7.1, Albumin 4.1, Globulin 3.0, Albumin/Globulin Ratio 1.4 02/16/24 20:13: Urine Color Yellow, Urine Appearance Clear, Urine pH 6.0, Ur Specific [place] 1.025, Urine Protein Negative, Urine Glucose (UA) Negative, Urine Ketones Negative, Urine Blood 2+, Urine Nitrate Positive, Urine Bilirubin Negative, Urine Urobilinogen 0.2, Ur Leukocyte Esterase Negative, Urine RBC Occasional, Urine WBC 5-10, Ur Squamous Epith Cells 3-5, Urine Bacteria 1+ 02/16/24 20:57: VBG pH 7.35, VBG pCO2 39.3, VBG pO2 34.3, VBG HCO3 21.1 L, VBG Total CO2 22.3 L, VBG O2 Saturation 67.7, VBG Base Excess -4.6 L, VBG Lactic Acid 1.8 02/17/24 01:35: Troponin I < 0.01 02/17/24 05:48: POC Glucose 123 H 02/17/24 06:58: WBC 4.5 L D, RBC 3.25 L, Hgb 11.3 L D, Hct 33.8 L, MCV 104.0 H, MCH 34.7 H, MCHC 33.3, RDW 15.5, Plt Count 274, MPV 8.4, Neut % (Auto) 56.7, Lymph % (Auto) 25.9, [place] % (Auto) 8.4, Eos % (Auto) 7.8, Baso % (Auto) 1.2, Neut # (Auto) 2.6, Lymph # (Auto) 1.2, [place] # (Auto) 0.4, Eos # (Auto) 0.4, Baso # (Auto) 0.1, Sodium 137, Potassium 3.8, Chloride 109 H, Carbon Dioxide 23, Anion Gap 8.8, BUN 21 H, Creatinine 0.90, Estimated Creat Clear 61, Estimated GFR 62, Est GFR ( Amer) 75, Glucose 118 H, Calcium 8.2 L, Magnesium 1.4 L , Total Bilirubin 0.2, AST 19 D, ALT 13 D, Alkaline Phosphatase 63, Total Protein 5.4 L, Albumin 3.0 L D, Globulin 2.4, Albumin/Globulin Ratio 1.3 02/17/24 11:59: POC Glucose 150 H I & O for Last 24 hours: Intake & Output 02/14/24 02/15/24 02/16/24 02/17/24 23:59 23:59 23:59 23:59 Intake Total 370 / 370 Output Total 150 / 150 0 / 0 Balance -150 / -30 370 / 370 Weight 69.428 kg 71.327 kg Constitutional Constitutional: no acute distress *Routine HEENT Exam Head: Present normocephalic Eye: Present EOMI and PERRL ENT: Present mucous membranes moist *Routine Neck Exam Neck: Present supple; Absent lymphadenopathy *Routine Respiratory Exam Respiratory: Present CTA bilaterally *Routine Cardiovascular Exam Cardiovascular: Present RRR *Routine Abdominal Exam Abdominal: Present soft and normoactive bowel sounds; Absent tenderness *Routine Extremities Exam Extremities: Absent cyanosis, clubbing or edema *Routine Skin Exam Skin: Present warm; Absent rash *Routine Neurological Exam Neurological: Present alert and oriented X3 Results Data Completed and Pending Labs on day of discharge: Labs from last 24 hours 02/17/24 02/17/24 02/17/24 11:59 06:58 05:48 WBC 4.5 L D RBC 3.25 L Hgb 11.3 L D Hct 33.8 L MCV 104.0 H MCH 34.7 H MCHC 33.3 RDW 15.5 Plt Count 274 MPV 8.4 Neut % (Auto) 56.7 Lymph % (Auto) 25.9 [place] % (Auto) 8.4 Eos % (Auto) 7.8 Baso % (Auto) 1.2 Neut # (Auto) 2.6 Lymph # (Auto) 1.2 [place] # (Auto) 0.4 Eos # (Auto) 0.4 Baso # (Auto) 0.1 VBG pH VBG pCO2 VBG pO2 VBG HCO3 VBG Total CO2 VBG O2 Saturation VBG Base Excess VBG Lactic Acid Sodium 137 Potassium 3.8 Chloride 109 H Carbon Dioxide 23 Anion Gap 8.8 BUN 21 H Creatinine 0.90 Estimated Creat Clear 61 Estimated GFR 62 Est GFR ( Amer) 75 Glucose 118 H POC Glucose 150 H 123 H Calcium 8.2 L Magnesium 1.4 L Total Bilirubin 0.2 AST 19 D ALT 13 D Alkaline Phosphatase 63 Total Creatine Kinase Troponin I NT-Pro-B Natriuret Pep Total Protein 5.4 L Albumin 3.0 L D Globulin 2.4 Albumin/Globulin Ratio 1.3 Urine Color Urine Appearance Urine pH Ur Specific [place] Urine Protein Urine Glucose (UA) Urine Ketones Urine Blood Urine Nitrate Urine Bilirubin Urine Urobilinogen Ur Leukocyte Esterase Urine RBC Urine WBC Ur Squamous Epith Cells Urine Bacteria 02/17/24 02/16/24 02/16/24 01:35 20:57 20:13 WBC RBC Hgb Hct MCV MCH MCHC RDW Plt Count MPV Neut % (Auto) Lymph % (Auto) [place] % (Auto) Eos % (Auto) Baso % (Auto) Neut # (Auto) Lymph # (Auto) [place] # (Auto) Eos # (Auto) Baso # (Auto) VBG pH 7.35 VBG pCO2 39.3 VBG pO2 34.3 VBG HCO3 21.1 L VBG Total CO2 22.3 L VBG O2 Saturation 67.7 VBG Base Excess -4.6 L VBG Lactic Acid 1.8 Sodium Potassium Chloride Carbon Dioxide Anion Gap BUN Creatinine Estimated Creat Clear Estimated GFR Est GFR ( Amer) Glucose POC Glucose Calcium Magnesium Total Bilirubin AST ALT Alkaline Phosphatase Total Creatine Kinase Troponin I < 0.01 NT-Pro-B Natriuret Pep Total Protein Albumin Globulin Albumin/Globulin Ratio Urine Color Yellow Urine Appearance Clear Urine pH 6.0 Ur Specific [place] 1.025 Urine Protein Negative Urine Glucose (UA) Negative Urine Ketones Negative Urine Blood 2+ Urine Nitrate Positive Urine Bilirubin Negative Urine Urobilinogen 0.2 Ur Leukocyte Esterase Negative Urine RBC Occasional Urine WBC 5-10 Ur Squamous Epith Cells 3-5 Urine Bacteria 1+ 02/16/24 02/16/24 19:30 19:30 WBC 8.1 RBC 3.82 L Hgb 13.3 Hct 40.1 MCV 105.1 H MCH 35.0 H MCHC 33.3 RDW 15.1 Plt Count 317 MPV 8.3 Neut % (Auto) 81.9 H Lymph % (Auto) 8.5 L [place] % (Auto) 4.3 Eos % (Auto) 4.5 Baso % (Auto) 0.9 Neut # (Auto) 6.6 Lymph # (Auto) 0.7 [place] # (Auto) 0.4 Eos # (Auto) 0.4 Baso # (Auto) 0.1 VBG pH VBG pCO2 VBG pO2 VBG HCO3 VBG Total CO2 VBG O2 Saturation VBG Base Excess VBG Lactic Acid Sodium 138 Potassium 4.5 Chloride 106 Carbon Dioxide 24 Anion Gap 12.5 BUN 27 H Creatinine 1.00 Estimated Creat Clear 64 Estimated GFR 55 L Est GFR ( Amer) 67 Glucose 145 H POC Glucose Calcium 9.3 Magnesium Total Bilirubin 0.3 AST 26 ALT 23 Alkaline Phosphatase 78 Total Creatine Kinase 38 Troponin I < 0.01 < 0.01 NT-Pro-B Natriuret Pep 967 H Total Protein 7.1 Albumin 4.1 Globulin 3.0 Albumin/Globulin Ratio 1.4 Urine Color Urine Appearance Urine pH Ur Specific [place] Urine Protein Urine Glucose (UA) Urine Ketones Urine Blood Urine Nitrate Urine Bilirubin Urine Urobilinogen Ur Leukocyte Esterase Urine RBC Urine WBC Ur Squamous Epith Cells Urine Bacteria DS: Diagnosis Discharge Diagnosis (1) Delirium: Status: Acute Code(s): R41.0 - Disorientation, unspecified (2) UTI (urinary tract infection): Status: Acute Code(s): N39.0 - Urinary tract infection, site not specified Qualifiers: Urinary tract infection type: site unspecified Hematuria presence: without hematuria Qualified Code(s): N39.0 - Urinary tract infection, site not specified (3) Closed fracture of greater trochanter of femur: Status: Acute Code(s): S72.113A - Displaced fracture of greater trochanter of unspecified femur, initial encounter for closed fracture Qualifiers: Encounter type: initial encounter Fracture alignment: displaced Laterality: right Qualified Code(s): S72.111A - Displaced fracture of greater trochanter of right femur, initial encounter for closed fracture (4) Fall: Status: Acute Code(s): W19.XXXA - Unspecified fall, initial encounter Qualifiers: Encounter type: initial encounter Qualified Code(s): W19.XXXA - Unspecified fall, initial encounter (5) COPD mixed type: Status: Acute Code(s): J44.9 - Chronic obstructive pulmonary disease, unspecified (6) CHF (congestive heart failure): Status: Acute Code(s): I50.9 - Heart failure, unspecified Qualifiers: Heart failure chronicity: chronic Heart failure type: unspecified Qualified Code(s): I50.9 - Heart failure, unspecified (7) CAD (coronary artery disease): Status: Chronic Code(s): I25.10 - Atherosclerotic heart disease of [place] coronary artery without angina pectoris Qualifiers: Coronary Disease-Associated Artery/Lesion type: [place] artery [place] vs. transplanted heart: [place] heart Associated angina: without angina Qualified Code(s): I25.10 - Atherosclerotic heart disease of [place] coronary artery without angina pectoris Problem details: APR 2022-Severe ostial mid left main disease as described Successful stenting of the ostial proximal mid distal left main artery reducing the stenosis to less than 10% giving excellent angiograph results Preserved ejection fraction Normal left ventricular end-diastolic pressure Persistent stenosis in a large posterior lateral branch which is best managed medically (8) HLD (hyperlipidemia): Status: Chronic Code(s): E78.5 - Hyperlipidemia, unspecified Qualifiers: Hyperlipidemia type: mixed hyperlipidemia Qualified Code(s): E78.2 - Mixed hyperlipidemia (9) HTN (hypertension): Status: Chronic Code(s): I10 - Essential (primary) hypertension Qualifiers: Hypertension type: essential hypertension Qualified Code(s): I10 - Essential (primary) hypertension (10) PAD (peripheral artery disease): Status: Acute Code(s): I73.9 - Peripheral vascular disease, unspecified (11) Diabetes mellitus: Status: Acute Code(s): E11.9 - Type 2 diabetes mellitus without complications Qualifiers: Diabetes mellitus type: type 2 Diabetes mellitus nursing home insulin use: without intermodal customer service use Diabetes mellitus complication status: with other specified complication Qualified Code(s): E11.69 - Type 2 diabetes mellitus with other specified complication (12) Fibromyalgia: Status: Acute Code(s): M79.7 - Fibromyalgia (13) Tobacco use: Status: Chronic Code(s): Z72.0 - Tobacco use Meds Home Medications and Allergies Home Medications Medication Instructions Recorded Confirmed Type atorvastatin 20 mg tablet 20 mg PO HS 90 days ##90 10/26/17 02/17/24 History cetirizine 10 mg tablet 10 mg PO DAILY Allergy symptoms 30 10/26/17 02/17/24 History days ##30 clopidogrel 75 mg tablet 75 mg PO DAILY 90 days ##90 10/26/17 02/17/24 History metformin 1,000 mg tablet 1,000 mg PO BIDWMEAL 90 days ##180 10/26/17 02/17/24 H istory aspirin 81 mg tablet,delayed 81 mg PO DAILY 05/06/18 02/17/24 History release atenolol 25 mg tablet 25 mg PO DAILY 06/03/20 02/17/24 History escitalopram oxalate 5 mg tablet 5 mg PO DAILY 06/03/20 02/17/24 History ipratropium 0.5 mg-albuterol 3 mg 3 ml inhalation QIDP PRN Shortness 05/03/22 02/17/24 History (2.5 mg base)/3 mL nebulization Of Breath soln allopurinol 100 mg tablet 200 mg PO DAILY 12/27/22 02/17/24 History fluticasone fur. 100 mcg-umeclid 1 inh inhalation DAILY 01/17/23 02/17/24 History 62.5 mcg-vilant 25 mcg inhalat.powder (Trelegy Ellipta) gabapentin 300 mg capsule 600 mg (2 x 300 mg) PO BID Nerve 02/02/23 02/17/24 Rx pain 90 days #360 caps bumetanide 1 mg tablet 1 mg PO BIDL Fluid 30 days #0 tabs 12/04/23 02/17/24 Rx spironolactone 50 mg tablet 50 mg PO BIDL Fluid 30 days #60 12/04/23 02/17/24 Rx tabs colchicine 0.6 mg tablet 0.3 mg PO Q2D 02/17/24 02/17/24 History methocarbamol 500 mg tablet 500 mg PO Q6HP PRN muscle spasm 02/17/24 02/17/24 History New Prescriptions to Start Prescriptions: Allergies Allergy/AdvReac Type Severity Reaction Status Date / Time Sulfa (Sulfonamide Allergy Unknown BLISTERING Verified 01/07/24 15:03 Antibiotics) OF THROAT levofloxacin [From Levaquin] Allergy Verified 01/07/24 15:03 Discharge Plan Disposition Patient Disposition: Home, Self-Care Condition: Good Follow up Plan Follow up with: Anselmo Montana MD [Primary Care Provider] - 1 week (please call for appointment) Prescriptions/Medication Reconciliation: Continued ipratropium-albuterol 0.5 mg-3 mg(2.5 mg base)/3 mL solution for nebulization 3 ml IH QIDP PRN (Reason: Shortness Of Breath) metformin 1,000 mg tablet 1,000 mg PO BIDWMEAL 90 Days Qty: 180 Patient Comments: clopidogrel 75 mg tablet 75 mg PO DAILY 90 Days Qty: 90 Patient Comments: cetirizine 10 mg tablet 10 mg PO DAILY 30 Days Qty: 30 Patient Comments: TAKE 1 TABLET ONCE A DAY FOR VERTIGO atorvastatin 20 mg tablet 20 mg PO HS 90 Days Qty: 90 Patient Comments: Trelegy Ellipta 100-62.5-25 mcg blister with device 1 inh inhalation DAILY atenolol 25 MG tablet 25 mg PO DAILY escitalopram oxalate 5 MG tablet 5 mg PO DAILY allopurinol 100 mg tablet 200 mg PO DAILY gabapentin 300 mg capsule 600 mg PO BID 90 Days Qty: 360 0RF colchicine 0.6 mg tablet 0.3 mg PO Q2D Rx Instructions: PATIENT TAKING ITRACONAZOLE, DUE TO DDI THIS WAS REDUCED TO HALF A TABLET (0.3 MG) EVERY OTHER DAY. methocarbamol 500 mg tablet 500 mg PO Q6HP PRN (Reason: muscle spasm) aspirin 81 MG tablet,delayed release (DR/EC) 81 mg PO DAILY bumetanide 1 mg tablet 1 mg PO BIDL 30 Days Qty: 0 0RF spironolactone 50 mg tablet 50 mg PO BIDL 30 Days Qty: 60 0RF Problem Reconciliation Problems Reviewed?: Yes Patient Discharge Instructions ACTIVITY: Ambulate as tolerated DIET: continue same diet Patient Instructions: Urinary Tract Infection, DI for Altered Mental Status Providers Primary Care Provider: Anselmo Montana Admjennifer Provider: Herlinda Do Attending Provider: Herlinda Do
--- NOTE | 2024-02-18 12:46 | CARE MANAGER ---
Spoke with patient related to hospital discharge. She states she is doing better. She got both of her medications and states she will have her daughter make her an appointment with Dr. Montana. Denies questions or concerns.
== END 2024-02-17 13:52 | disposition home or self-care (01) ==
LOC: ER 20:51 → 2ND 22:07
PROVIDERS: Nurse Practitioner Family; Admitting Provider Internal Medicine; Emergency Provider Emergency Medicine; PCP Internal Medicine Adolescent Medicine; Visit Provider Internal Medicine
DX: N39.0 Urinary tract infection, site not specified (principal); S72.111A Displaced fracture of greater trochanter of right femur, initial encounter for closed fracture; W19.XXXA Unspecified fall, initial encounter; I50.9 Heart failure, unspecified; J44.0 Chronic obstructive pulmonary disease with (acute) lower respiratory infection; I25.10 Atherosclerotic heart disease of native coronary artery without angina pectoris; E78.2 Mixed hyperlipidemia; I73.9 Peripheral vascular disease, unspecified; M79.7 Fibromyalgia; Z72.0 Tobacco use; I11.0 Hypertensive heart disease with heart failure; Z95.5 Presence of coronary angioplasty implant and graft; E11.51 Type 2 diabetes mellitus with diabetic peripheral angiopathy without gangrene; J96.21 Acute and chronic respiratory failure with hypoxia
CPT/HCPCS: 36415; 70450; 71045; 72125; 73502; 80053; 81001; 82550; 82803; 82962; 83735; 83880; 84484; 85025; 93005; 94640; 97162; 99285; G0378; J0131; J0696; J2405

== ENCOUNTER 2024-04-08 14:12 | Outpatient (CLI) | payer MEDICARE, SELFPAY ==
--- NOTE | 2024-04-08 14:13 | CT_ITS ---
FINAL REPORT CLINICAL HISTORY: 3-month follow-up left upper lobe cavitary pneumon COMPARISON: 12/01/2023 FINDINGS: CT CHEST without contrast COMPARISON: 12/01/2023. TECHNIQUE: Axial images through the chest were performed by computed tomography. This study was performed with techniques to keep radiation doses as low as reasonably achievable, (ALARA). Individualized dose reduction techniques using automated exposure control or adjustment of mA and/or kV according to the patient's size were employed. FINDINGS: The cavitary process in the left upper lobe noted on the prior examination remains present, on today's exam measuring 44 mm in the AP dimension, 32 mm in width, and 29 mm in height. This previously measured 54 mm x 33 mm x 33 mm. The difference in measurement may be in part secondary to slice variation, though the solid component of this mass along the posterior aspect appears more prominent, and the cavitary component appears smaller. There is a lingular cavitary focus, which has decreased in size, measuring up to 7 mm on today's exam, best seen on image #41, was previously 12 mm. The left lower lobe spiculated nodule, 8 mm in size, is stable. The spiculated nodule in the peripheral right upper lobe measures 11 mm, was previously 7. No pleural or pericardial effusion is seen . There appeared to be 2 separate right adrenal nodules, the more anterior nodule has an appearance suggestive of an adenoma, the more posterior nodule appears to contain fat, and likely represents a myelolipoma. IMPRESSION: The dominant cavitary lesion in the left upper lobe measures slightly smaller than on the previous exam, which may likely be due to a decrease in cavitation although the solid posterior component has enlarged. Multiple other nodules are either stable, slightly decreased, or slightly increased in size. Once again this may represent infectious or neoplastic etiology. Recommend 6-month follow-up CT for further evaluation. This study was performed using automated techniques to achieve radiation exposure as low as reasonably achievable Reviewed, Interpreted and Dictated by Callum Armas MD Transcribed by Sonia Vazquez Authenticated and . [facility]
[2024-04-08 15:35] VITALS: PULSE 64; PULSE 66
[2024-04-08] MEDS: ALBUTEROL 0.083% 2.5 MG/3 ML NEB IH (15:35)
[2024-04-08 16:36] LABS: Alanine Aminotransferase 25 U/L (12-78); Albumin Level 4.4 g/dl (3.5-5.0); Albumin/Globulin Ratio 1.8 (1.1-1.8); Alkaline Phosphatase 67 U/L (38-126); Anion Gap 12.9 mEq/L (5-15); Aspartate Amino Transferase 25 U/L (14-36); Bilirubin,Total 0.5 mg/dl (0.2-1.3); Blood Urea Nitrogen 26 mg/dl (7-17); Calcium 10.4 mg/dl (8.4-10.2); Carbon Dioxide 29 mmol/L (22.0-30.0); Chloride 99 mmol/L (98-107); Estimated Glomerular Filt Rate 62 ml/min (>60); GFR (African American) 75 ML/MIN (>60); Globulin 2.4 g/dL (1.3-3.2); Glucose 111 mg/dl (74-100); Potassium 4.9 mmoL/L (3.5-5.1); Sodium 136 mmol/L (136-145); Total Protein,Serum 6.8 g/dl (6.3-8.2)
[2024-04-08 16:41] LABS: C-Reactive Protein 0.6 mg/L (0-4)
== END 2024-04-08 23:59 | disposition home or self-care (01) ==
LOC: RAD 14:13
PROVIDERS: PCP Internal Medicine Pulmonary Disease; Visit Provider Internal Medicine Pulmonary Disease
DX: R91.8 Other nonspecific abnormal finding of lung field (principal); J84.9 Interstitial pulmonary disease, unspecified; R06.02 Shortness of breath
CPT/HCPCS: 36415; 71250; 80053; 86140; 94060; 94618; 94640; 94726; 94729; J7613

== ENCOUNTER 2024-04-15 14:06 | Outpatient (CLI) | payer MEDICARE, SELFPAY ==
--- NOTE | 2024-04-15 14:13 | XR_ITS ---
FINAL REPORT CLINICAL HISTORY: right hip fx COMPARISON: 02/16/2024 FINDINGS: RIGHT HIP Two views of the right hip demonstrate a fracture of the superior portion of the right greater trochanter also seen on the prior exam of February 15. The fracture fragments are unchanged in position. An intramedullary sasha is present in the proximal left femur. The joint spaces appear normal. The visualized bony structures are well aligned. No soft tissue abnormality is seen. IMPRESSION: No change in appearance or position of the fracture of the superior portion of the right greater trochanter. Reviewed, Interpreted and Dictated by Ollie Carias MD Transcribed by Sonia Vazquez Authenticated and [facility]
== END 2024-04-15 23:59 | disposition home or self-care (01) ==
LOC: RAD 14:08
PROVIDERS: PCP Internal Medicine Adolescent Medicine; Visit Provider Orthopaedic Surgery
DX: M25.551 Pain in right hip (principal)
CPT/HCPCS: 73502

== ENCOUNTER 2024-04-17 11:18 | Outpatient (CLI) | payer MEDICARE, SELFPAY ==
[2024-04-17 11:34] LABS: Basophils # 0.1 K/mm3 (0-0.2); Basophils % 0.9 % (0.1-2.0); Eosinophils # 0.2 K/mm3 (0.0-0.4); Eosinophils % 2.3 % (0.1-12.0); Hematocrit 39.6 % (37.0-47.0); Hemoglobin 12.6 g/dL (12.2-16.2); Lymphocytes # 2.6 K/mm3 (0.7-4.5); Lymphocytes % 29.4 % (10-50); Mean Corpuscular Hemoglobin 34.8 pg (27.0-31.2); Mean Platelet Volume 8.2 fl (7.4-10.4); Monocytes # 0.6 K/mm3 (0.1-1.0); Monocytes % 6.7 % (1.7-9.3); Neutrophils # 5.3 K/mm3 (1.8-7.8); Neutrophils % 60.7 % (37.0-80.0); Platelet Count 315 K/mm3 (142-424); Red Blood Count 3.63 M/mm3 (4.20-5.40); Red Cell Distribution Width 15.1 % (11.5-17.5); White Blood Count 8.7 K/mm3 (4.8-10.8)
[2024-04-17 12:20] LABS: Alanine Aminotransferase 20 U/L (12-78); Albumin Level 3.8 g/dl (3.5-5.0); Albumin/Globulin Ratio 1.5 (1.1-1.8); Alkaline Phosphatase 72 U/L (38-126); Anion Gap 14.3 mEq/L (5-15); Aspartate Amino Transferase 19 U/L (14-36); Bilirubin,Total 0.4 mg/dl (0.2-1.3); Blood Urea Nitrogen 25 mg/dl (7-17); Calcium 9.8 mg/dl (8.4-10.2); Carbon Dioxide 25 mmol/L (22.0-30.0); Chloride 103 mmol/L (98-107); Estimated Glomerular Filt Rate 62 ml/min (>60); GFR (African American) 75 ML/MIN (>60); Globulin 2.5 g/dL (1.3-3.2); Glucose 137 mg/dl (74-100); Potassium 4.3 mmoL/L (3.5-5.1); Sodium 138 mmol/L (136-145); Total Protein,Serum 6.3 g/dl (6.3-8.2)
[2024-04-21 15:58] LABS: Clinical Relevance Notes (.); Disclaimer Notes (.); Interpretation Notes (.); Reference Value See below: (.)
[2024-05-07 12:01] LABS: Fungitell Value 140.153
== END 2024-04-17 23:59 | disposition home or self-care (01) ==
LOC: LAB 11:18
PROVIDERS: PCP Internal Medicine Adolescent Medicine; Visit Provider Internal Medicine Pulmonary Disease
DX: B49 Unspecified mycosis (principal); J45.909 Unspecified asthma, uncomplicated; J84.9 Interstitial pulmonary disease, unspecified
CPT/HCPCS: 80053; 80299; 85025; 87449

== ENCOUNTER 2024-05-10 09:44 | Outpatient (CLI) | payer MEDICARE, SELFPAY ==
[2024-05-10 09:55] LABS: Microscopic, Urine URINE MICROSCOPIC (MICROSCOPIC)
[2024-05-10 10:59] LABS: Appearance,Urine CLEAR (Clear); Bilirubin,Urine Negative (Negative); Blood, Urine Negative (Negative); Color,Urine YELLOW (Yellow); Glucose,Urine (UA) Negative (Negative); Ketones,Urine Negative (Negative); Leukocyte Esterase,Urine TRACE (Negative); Nitrate,Urine POSITIVE (Negative); Protein,Urine Negative (Negative); Specific Gravity, Urine 1.015 (1.005-1.030); Urobilinogen,Urine 0.2 EU/dl (0.2)
[2024-05-10 11:13] LABS: Bacteria,Urine 3+ /lpf; WBC,Urine Occasional #/hpf (0-3)
== END 2024-05-10 23:59 | disposition home or self-care (01) ==
LOC: LAB 09:47
PROVIDERS: PCP Nurse Practitioner Family; Visit Provider Nurse Practitioner Family
DX: R30.0 Dysuria (principal); B96.1 Klebsiella pneumoniae [K. pneumoniae] as the cause of diseases classified elsewhere
CPT/HCPCS: 81001; 87086; 87088; 87186

== ENCOUNTER 2024-05-13 13:45 | Outpatient (CLI) | payer MEDICARE, SELFPAY ==
[2024-05-13] MEDS: ERTAPENEM SODIUM 1 GM VIAL IM (14:05)
[2024-05-13 14:07] VITALS: BP 107/61; PULSE 77; RESP 19; TEMP 36.7; O2SAT 95
== END 2024-05-13 14:07 | disposition home or self-care (01) ==
LOC: INF 13:47
PROVIDERS: PCP Nurse Practitioner Family; Visit Provider Nurse Practitioner Family
DX: N39.0 Urinary tract infection, site not specified (principal)
CPT/HCPCS: 96372; J1335

== ENCOUNTER 2024-05-14 13:49 | Outpatient (CLI) | payer MEDICARE, SELFPAY ==
[2024-05-14 14:07] VITALS: BP 142/69; PULSE 84; RESP 22; TEMP 36.4; O2SAT 94
[2024-05-14] MEDS: ERTAPENEM SODIUM 1 GM VIAL IM (14:07)
== END 2024-05-14 14:22 | disposition home or self-care (01) ==
LOC: INF 13:50
PROVIDERS: PCP Nurse Practitioner Family; Visit Provider Nurse Practitioner Family
DX: N39.0 Urinary tract infection, site not specified (principal)
CPT/HCPCS: 96372; J1335

== ENCOUNTER 2024-05-15 13:54 | Outpatient (CLI) | payer MEDICARE, SELFPAY ==
[2024-05-15 14:16] VITALS: BP 115/71; PULSE 79; RESP 20; TEMP 36.7; O2SAT 95
[2024-05-15] MEDS: ERTAPENEM SODIUM 1 GM VIAL IM (14:16)
--- NOTE | 2024-05-15 14:31 | XR_ITS ---
FINAL REPORT CLINICAL HISTORY: Rt Hip pain pt states hx of fracture COMPARISON: 04/15/2024 FINDINGS: RIGHT HIP Two views of the right hip with an AP view of the pelvis demonstrate an IM sasha and compression screw in the proximal left femur. On the right, there is a transverse lucency through the superior portion of the right greater trochanter with progressive healing. This is nondisplaced. The visualized bony structures are well aligned. No soft tissue abnormality is seen. IMPRESSION: Progressive healing of right greater trochanter fracture. Reviewed, Interpreted and Dictated by Ollie Carias MD Transcribed by Radha Burrell Authenticated and . [facility]
== END 2024-05-15 14:25 | disposition home or self-care (01) ==
PROVIDERS: PCP Internal Medicine Adolescent Medicine; Visit Provider Nurse Practitioner Family
DX: N39.0 Urinary tract infection, site not specified (principal)
CPT/HCPCS: 73502; 96372; J1335

== ENCOUNTER 2024-05-16 11:08 | Outpatient (CLI) | payer MEDICARE, SELFPAY ==
[2024-05-16] MEDS: ERTAPENEM SODIUM 1 GM VIAL IM (11:30)
[2024-05-16 11:37] VITALS: BP 112/61; PULSE 83; RESP 18; O2SAT 95
== END 2024-05-16 11:39 | disposition home or self-care (01) ==
LOC: INF 11:10
PROVIDERS: PCP Internal Medicine Adolescent Medicine; Visit Provider Nurse Practitioner Family
DX: N39.0 Urinary tract infection, site not specified (principal)
CPT/HCPCS: 96372; J1335

== ENCOUNTER 2024-05-17 12:18 | Outpatient (CLI) | payer MEDICARE, SELFPAY ==
[2024-05-17 12:30] VITALS: BP 121/62; PULSE 86; RESP 18; TEMP 36.8; O2SAT 98
[2024-05-17] MEDS: ERTAPENEM SODIUM 1 GM VIAL IM (12:36)
== END 2024-05-17 12:45 | disposition home or self-care (01) ==
LOC: INF 12:20
PROVIDERS: PCP Nurse Practitioner Family; Visit Provider Nurse Practitioner Family
DX: N39.0 Urinary tract infection, site not specified (principal)
CPT/HCPCS: 96372; G0463; J1335

== ENCOUNTER 2024-05-18 12:11 | Outpatient (CLI) | payer MEDICARE, SELFPAY ==
[2024-05-18] MEDS: ERTAPENEM SODIUM 1 GM VIAL IM (12:41)
== END 2024-05-18 12:35 | disposition home or self-care (01) ==
LOC: INF 12:11
PROVIDERS: PCP Nurse Practitioner Family; Visit Provider Nurse Practitioner Family
DX: N39.0 Urinary tract infection, site not specified (principal)
CPT/HCPCS: 96372; G0463; J1335

== ENCOUNTER 2024-05-19 13:23 | Outpatient (CLI) | payer MEDICARE, SELFPAY ==
[2024-05-19] MEDS: ERTAPENEM SODIUM 1 GM VIAL IM (13:45)
== END 2024-05-19 23:59 | disposition home or self-care (01) ==
LOC: INF 13:24
PROVIDERS: PCP Nurse Practitioner Family; Visit Provider Nurse Practitioner Family
DX: N39.0 Urinary tract infection, site not specified (principal)
CPT/HCPCS: 96372; J1335

== ENCOUNTER 2024-06-09 12:00 | Outpatient (CLI) | payer MEDICARE, SELFPAY ==
[2024-06-09 16:02] LABS: Microscopic, Urine URINE MICROSCOPIC (MICROSCOPIC)
[2024-06-09 16:16] LABS: Appearance,Urine CLEAR (Clear); Bilirubin,Urine Negative (Negative); Blood, Urine 2+ (Negative); Color,Urine YELLOW (Yellow); Glucose,Urine (UA) Negative (Negative); Ketones,Urine Negative (Negative); Leukocyte Esterase,Urine 1+ (Negative); Nitrate,Urine Negative (Negative); Protein,Urine Negative (Negative); Specific Gravity, Urine 1.015 (1.005-1.030); Urobilinogen,Urine 0.2 EU/dl (0.2)
[2024-06-09 16:40] LABS: Bacteria,Urine 1+ /lpf
[2024-06-14 14:15] LABS: Atopobium vaginae Low - 0 Score (.); BVAB2 Low - 0 Score (.); Candida albicans NAA Positive (Negative); Candida glabrata Positive (Negative); Chlamydia Trachomatis NAA Negative (Negative); HSV 1 NAA Negative (Negative); HSV 2 NAA Negative (Negative); Megasphaera 1 Low - 0 Score (.); Neisseria gonorrhoeae NAA Negative (Negative); Trich vag NAA Negative (Negative)
== END 2024-06-09 23:59 | disposition home or self-care (01) ==
LOC: LAB.DROPOF 06-10 09:11
PROVIDERS: PCP Urology; Visit Provider Urology
DX: R31.9 Hematuria, unspecified (principal); N39.0 Urinary tract infection, site not specified; N95.2 Postmenopausal atrophic vaginitis; B37.31 Acute candidiasis of vulva and vagina
CPT/HCPCS: 81001; 87086; 87088; 87186; 87491; 87529; 87591; 87661; 87798; 87801

== ENCOUNTER 2024-06-18 14:13 | Outpatient (CLI) | payer MEDICARE, SELFPAY ==
[2024-06-18 14:45] LABS: Blood Urea Nitrogen 12 mg/dl (7-17); Estimated Glomerular Filt Rate 55 ml/min (>60); GFR (African American) 67 ML/MIN (>60)
== END 2024-06-18 23:59 | disposition home or self-care (01) ==
LOC: LAB 14:14
PROVIDERS: PCP Internal Medicine Adolescent Medicine; Visit Provider Urology
DX: R31.9 Hematuria, unspecified (principal)
CPT/HCPCS: 36415; 82565; 84520

== ENCOUNTER 2024-06-20 10:11 | Outpatient (CLI) | payer MEDICARE, SELFPAY ==
--- NOTE | 2024-06-20 10:11 | CT_ITS ---
FINAL REPORT CLINICAL HISTORY: hematuria FINDINGS: The lung bases are clear. There is lipomatous hypertrophy of the intra-atrial septum seen on images 1-7 of series 5. There are scattered calcified granulomas and cysts in the liver. Liver is at the upper limits of normal in size but otherwise unremarkable. The spleen is unremarkable. There is a right adrenal nodule measuring 1.5 x 1.3 cm which is indeterminate, favor adenoma. The pancreas is unremarkable. The kidneys enhance appropriately. Precontrast images demonstrate no nephrolithiasis. There is streak artifact arising from hardware in the left femur. There is nonunion of a prior fracture of the superior portion of the right greater trochanter. IMPRESSION: Lipomatous hypertrophy of the intra-atrial septum. Right adrenal nodule, indeterminate. Reviewed, Interpreted and Dictated by Ollie Carias MD Transcribed by Barbara Patel Authenticated and [facility]
[2024-06-20] MEDS: IOPAMIDOL-370 (76%);100ML BOTTLE 75 ML IV (10:23)
[2024-06-20] MEDS: SODIUM CHLORIDE 0.9% 10ML SYR (RAD ONLY) 10 ML IV (10:23)
== END 2024-06-20 23:59 | disposition home or self-care (01) ==
LOC: RAD 10:11
PROVIDERS: PCP Internal Medicine Adolescent Medicine; Visit Provider Urology
DX: R31.9 Hematuria, unspecified (principal)
CPT/HCPCS: 74178; Q9967

== ENCOUNTER 2024-06-30 09:35 | Outpatient (CLI) | payer MEDICARE, SELFPAY ==
[2024-06-30 15:53] LABS: Microscopic, Urine URINE MICROSCOPIC (MICROSCOPIC)
[2024-06-30 16:24] LABS: Appearance,Urine CLEAR (Clear); Bilirubin,Urine Negative (Negative); Blood, Urine Negative (Negative); Color,Urine YELLOW (Yellow); Glucose,Urine (UA) Negative (Negative); Ketones,Urine Negative (Negative); Leukocyte Esterase,Urine Negative (Negative); Nitrate,Urine POSITIVE (Negative); Protein,Urine Negative (Negative); Urobilinogen,Urine 0.2 EU/dl (0.2)
[2024-06-30 19:00] LABS: Bacteria,Urine 2+ /lpf
== END 2024-06-30 23:59 | disposition home or self-care (01) ==
LOC: LAB.DROPOF 07-01 09:35
PROVIDERS: PCP Urology; Visit Provider Urology
DX: N39.0 Urinary tract infection, site not specified (principal)
CPT/HCPCS: 81001; 87086; 87088; 87186

== ENCOUNTER 2024-08-21 14:15 | Outpatient (CLI) | payer MEDICARE, SELFPAY ==
--- NOTE | 2024-08-21 14:35 | PC.NURSE ---
1435-collected labs via venipuncture stick in left ac; pt to dc home
== END 2024-08-21 14:35 | disposition home or self-care (01) ==
LOC: LAB 14:16 → INF 14:37
PROVIDERS: PCP Internal Medicine Adolescent Medicine; Visit Provider Internal Medicine Medical Oncology
DX: C34.90 Malignant neoplasm of unspecified part of unspecified bronchus or lung (principal); C34.12 Malignant neoplasm of upper lobe, left bronchus or lung
CPT/HCPCS: 36415

== ENCOUNTER 2024-08-28 12:51 | Outpatient (CLI) | payer MEDICARE, SELFPAY ==
[2024-08-28 12:57] VITALS: BMI 28.9
[2024-08-28 13:23] LABS: Albumin Level 4.4 g/dl (3.5-5.0); Chloride 103 mmol/L (98-107); Potassium 5.2 mmoL/L (3.5-5.1); Sodium 135 mmol/L (136-145)
[2024-08-28 13:26] LABS: Alanine Aminotransferase 22 U/L (12-78); Albumin/Globulin Ratio 1.5 (1.1-1.8); Alkaline Phosphatase 69 U/L (38-126); Anion Gap 8.2 mEq/L (5-15); Aspartate Amino Transferase 35 U/L (14-36); Bilirubin,Total 0.7 mg/dl (0.2-1.3); Blood Urea Nitrogen 18 mg/dl (7-17); Calcium 10.1 mg/dl (8.4-10.2); Carbon Dioxide 29 mmol/L (22.0-30.0); Creatinine Clearance Estimated 60 mL/min (50-200); Estimated Glomerular Filt Rate 55 ml/min (>60); GFR (African American) 67 ML/MIN (>60); Glucose 207 mg/dl (74-100); Total Protein,Serum 7.4 g/dl (6.3-8.2)
[2024-08-28 13:30] LABS: Basophils # 0.1 K/mm3 (0-0.2); Basophils % 0.9 % (0.1-2.0); Eosinophils # 1.4 K/mm3 (0.0-0.4); Eosinophils % 13.6 % (0.1-12.0); Hematocrit 40.8 % (37.0-47.0); Hemoglobin 13.4 g/dL (12.2-16.2); Lymphocytes # 2.3 K/mm3 (0.7-4.5); Lymphocytes % 22.6 % (10-50); Mean Corpuscular HGB Conc 32.9 g/dL (31.8-35.4); Mean Corpuscular Hemoglobin 33.2 pg (27.0-31.2); Mean Corpuscular Volume 100.9 fl (81-99); Monocytes # 0.8 K/mm3 (0.1-1.0); Monocytes % 7.6 % (1.7-9.3); Neutrophils # 5.5 K/mm3 (1.8-7.8); Neutrophils % 55.3 % (37.0-80.0); Platelet Count 293 K/mm3 (142-424); Red Blood Count 4.04 M/mm3 (4.20-5.40); Red Cell Distribution Width 14.3 % (11.5-17.5)
[2024-08-28] MEDS: SODIUM CHLORIDE 0.9% 50ML BAG 50 ML IV (14:03)
[2024-08-28] MEDS: PEMBROLIZUMAB 200 MG in 0.9 % SODIUM CHLORIDE 50 ML 116 MG IV (14:03)
[2024-08-28 14:10] VITALS: BP 106/59; PULSE 68; RESP 17; O2SAT 94
[2024-08-28 14:25] VITALS: BP 114/60; PULSE 72; RESP 17
[2024-08-28 14:40] VITALS: BP 117/60; PULSE 68; RESP 18
--- NOTE | 2024-08-28 15:30 | DIET.NUTRFU ---
Consulted for 1st chemo tx. Patient has lung cancer, current smoker and started chemo today. She reported good appetite prior to starting. Has zofran on hand for nausea. Weight stable at 71.6kg. No dietary concerns at this time, did provide contact information for any problems in the future.
[2024-08-28 17:42] LABS: T4 (Thyroxine) 8.2 ug/dl (5.53-11.0)
[2024-08-28 17:56] LABS: Thyroid Stimulating Hormone 0.78 uIU/mL (0.465-4.68)
== END 2024-08-28 15:10 | disposition home or self-care (01) ==
LOC: INF 12:51
PROVIDERS: PCP Internal Medicine Adolescent Medicine; Visit Provider Internal Medicine Medical Oncology
DX: C34.90 Malignant neoplasm of unspecified part of unspecified bronchus or lung (principal); R53.83 Other fatigue
CPT/HCPCS: 80053; 82533; 84436; 84443; 85025; 96413; J9271

== ENCOUNTER 2024-09-18 07:32 | Day surgery (SDC) | payer MEDICARE, SELFPAY ==
[2024-09-18] VITALS (12 sets, daily range): BP systolic 109–153; BP diastolic 53–92; PULSE 61–92; RESP 12–18; TEMP 36.5–38; O2SAT 91–96; BMI 28.9
--- NOTE | 2024-09-18 07:42 | ECG_ITS ---
APPROVED REPORT Exam: Resting ECG HR:70 bpm ECG Measurements Heart Rate 70 AXES WA 190 P 91 QRSd 90 QRS 45 QT 420 T 64 QTc 440 Conclusion SINUS RHYTHM NONSPECIFIC T-WAVE ABNORMALITY BORDERLINE ECG UNCONFIRMED REPORT Electronically signed by : Anselmo Montana MD 09/18/2024 13:58:44
[2024-09-18] MEDS: 0.9 % SODIUM CHLORIDE 1000ML 1,000 ML 25 ML IV (07:45)
[2024-09-18 08:17] LABS: POC Glucose,Bedside 219 (70-110)
--- NOTE | 2024-09-18 08:33 | EXP.ANES.CKL ---
[facility] Disclaimer: The information contained in this section may have been updated after the patient was seen, as this information can be updated by other users. Medical History Pre-op evaluation Pulmonary fungal infection Gout Smoking greater than 30 pack years COPD mixed type Multiple lung nodules on CT Fungal pneumonia Acute and chronic respiratory failure with hypoxia Intertrochanteric fracture of left hip Status post cephalomedullary nailing Closed left hip fracture Acute respiratory failure with hypoxia Pneumonia due to COVID-19 virus Diabetes mellitus Diastolic dysfunction HLD (hyperlipidemia) HTN (hypertension) Subclavian artery stenosis, left PAD (peripheral artery disease) Tobacco use History of placement of stent in LAD coronary artery CAD (coronary artery disease) APR 2022-Severe ostial mid left main disease as described Successful stenting of the ostial proximal mid distal left main artery reducing the stenosis to less than 10% giving excellent angiograph results Preserved ejection fraction Normal left ventricular end-diastolic pressure Persistent stenosis in a large posterior lateral branch which is best managed medically COPD (chronic obstructive pulmonary disease) ACUÑA (dyspnea on exertion) Surgical History History of hysterectomy History of hip surgery Hx of right coronary artery stent placement Family History Other Asthma Cancer Diabetes Hypertension Social History (Updated 09/18/24 @ 08:13 by Ana Lilia Jorgensen RN) Smoking Status: Current every day smoker tobacco type: cigarettes packs per day: 1 second hand exposure: No alcohol intake: never substance use type: denies use current occupational status: disabled Travel in the last 8 weeks: None household members: none housing: house current occupational exposures/hazards: No caffeine: Yes Have you lived/traveled outside [place] in past 30 days?: No Contact w/someone who lives/traveled outside US past 30 days?: No Exposure to someone with infectious disease in past 14 days?: No Do you have a fever (greater than 100.4 F or 38 C)?: No Have you tested positive for COVID-19: Yes Exposed to someone with COVID-19 in past 14 days?: No Do you have a sore throat?: No Do you have a cough?: No Do you have any weakness?: No Are you experiencing any nausea/vomitting?: No Do you have any diarrhea?: No Are you experiencing any unusual bleeding?: No Do you have any muscle aches/pain?: No Do you have any abdominal pain?: No Are you experiencing loss of taste or smell?: No [facility] Anesthesia Checklist Patient Identification Patient Identification: Verbal (Name & ) Structural Data Admitted From: Home Planned Operative Procedure/s: portacath NPO Status Verified Time NPO: 00:00 Additional verifications Anesthesia Reactions: No Hx Blood Transfusions: No Blood Transfusion Reaction: No Airway Assessment Mallampati Score:: Class II C-Spine Mobility Assessed: Yes TMJ Mobility Assessed: Yes Dentition: Dentures-good fit Neurological Assessment Level of Consciousness: Awake, Alert and Appropriate Anesthesia Plan Anesthesia Risk discussed: Yes Anesthesia Plan: Verified ASA Class: III Anesthesia Type: General
[2024-09-18] MEDS: LIDOCAINE 1% 20ML MDV 20 ML (09:14)
[2024-09-18] MEDS: CEFAZOLIN SODIUM 2 GM in 0.9 % SODIUM CHLORIDE 100 ML IV (09:14)
[2024-09-18] MEDS: SODIUM CHLORIDE 0.9% 20ML VIAL 40 ML IV (09:14)
--- NOTE | 2024-09-18 09:32 | XR_ITS ---
FINAL REPORT CLINICAL HISTORY: PORT A CATH PLACEMENT IN THE OR FT: 0:31 8.60 MGY FINDINGS: FLUOROSCOPY IN THE OR HISTORY: Foot surgery FINDINGS: Fluoroscopy was provided by the radiology department for the clinical service. Fluoroscopy time: 31 seconds Radiation exposure in Reference air Kerma: 8.60 mGy IMPRESSION: Intraoperative fluoroscopy Reviewed, Interpreted and Dictated by Keila Jacobs MD Transcribed by KAROLINA Marshall Authenticated and [facility]
--- NOTE | 2024-09-18 09:59 | EXP.OP.NOTE ---
Date of procedure: 09/18/24 Pre-op Diagnosis:: Lung cancer Post-op Diagnosis:: Same Procedure performed:: Port-A-Cath placement Surgeon:: Himanshu Melendez MD TELEGRAPH MECHANIC:: Kenny Mendoza Anesthesia: local and LMA Estimated blood loss (mL): 10 Operative findings:: Catheter placement confirmed fluoroscopically Operative note:: After informed consent was obtained the patient was taken to the operating room and placed in the supine position. General anesthesia with laryngeal mask airway was achieved. Her right chest and neck were prepped and draped in a sterile fashion. After infiltration with local anesthetic a large bore needle was utilized to access the right subclavian vein. A guidewire was placed in position. A transverse incision was made at the guidewire exit site and the underlying tissue was dissected with electrocautery to create a pocket for the port hub. Utilizing a modified Seldinger technique the port catheter was placed in position and confirmed fluoroscopically. The catheter was secured to the port hub. The port hub was then secured to the underlying fascia with interrupted Prolene suture. The deep subcutaneous tissue was reapproximated with interrupted Vicryl suture. Skin was then closed with 4-0 Monocryl in a running subcuticular manner. The port was flushed with 5 mL of heparinized saline. The port was left accessed (plans for chemotherapy tomorrow). Dressings were applied and the patient was transferred to recovery in stable condition. Condition: stable Disposition: PACU Specimens:: None Complications:: No immediate. Chest x-ray pending.
--- NOTE | 2024-09-18 10:02 | EXP.ANES.I ---
[facility] Anesthesia Record Part I Anesthesia Record I Intake, IV Amount: 1,500 Hydration: Adequate Estimated blood loss (mL): 15 Urine output (mL): 0 Blood Pressure: 152/71 SaO2: 95 Pulse Rate: 92 Airway Patency: Patent Respiratory Rate: 12 Temperature: 98 F Patient is:: Awake and Stable Stable to PACU at:: 10:00
--- NOTE | 2024-09-18 10:03 | XR_ITS ---
FINAL REPORT CLINICAL HISTORY: Port-A-Cath placement COMPARISON: 02/16/2024 FINDINGS: A single PA view of the chest was obtained. The cardiac and mediastinal silhouettes are within normal limits. There is been interval placement of right Port-A-Cath with the tip in the SVC. Vascular stent is seen along the left superior mediastinum. There has been interval increased in medial left upper lobe opacity which now obscures the previously seen nodule, favor atelectasis. New nodular density is seen in the right upper lobe. There is no effusion or pneumothorax. IMPRESSION: Port-A-Cath tip in the SVC. Worsening left upper lobe atelectasis. New density in the right upper lobe. Recommend CT if one has not already been performed Reviewed, Interpreted and Dictated by Keila Jacobs MD Transcribed by Imani Cortez Authenticated and [facility]
--- NOTE | 2024-09-18 15:38 | EXP.ANES.II ---
[facility] Anesthesia Record Part II Anesthesia Record Part II Discharge Time: 10:30 Destination: Surgical Day Care (OP Surgery) PACU nurse assessment reviewed?: Yes Patient Condition:: Good Anesthesia Complications:: None Swallowing reflex intact?: Yes Airway Patency: Patent Cyanosis?: No Blood Pressure: 138/65 SaO2: 92 Respiratory Rate: 18 Pulse Rate: 71 Temperature: 98 F Mental Status: Alert & Oriented Pain level:: 0 Nausea and/or vomitting:: None Intake, IV Amount: 0 Hydration: Adequate
== END 2024-09-18 11:05 | disposition home or self-care (01) ==
PROVIDERS: PCP Internal Medicine Adolescent Medicine; Visit Provider Surgery
PROC: (CPT 36561; principal; 2024-09-18 09:10)
DX: C34.90 Malignant neoplasm of unspecified part of unspecified bronchus or lung (principal); Z72.0 Tobacco use
CPT/HCPCS: 36561; 77001; 71045; 76000; 82962; 93005; 96374; C1788; J0690; J1100; J1642; J1885; J2250; J2405; J3010; J7030

== ENCOUNTER 2024-09-19 12:59 | Outpatient (CLI) | payer MEDICARE, SELFPAY ==
[2024-09-19 13:23] VITALS: BMI 29.6
[2024-09-19 13:32] LABS: Basophils # 0.1 K/mm3 (0-0.2); Basophils % 0.4 % (0.1-2.0); Eosinophils # 0.1 K/mm3 (0.0-0.4); Eosinophils % 0.7 % (0.1-12.0); Hematocrit 31.4 % (37.0-47.0); Hemoglobin 10.7 g/dL (12.2-16.2); Lymphocytes % 15.1 % (10-50); Mean Corpuscular HGB Conc 34.1 g/dL (31.8-35.4); Mean Corpuscular Hemoglobin 33.4 pg (27.0-31.2); Mean Corpuscular Volume 98.1 fl (81-99); Mean Platelet Volume 10.3 fl (7.4-10.4); Monocytes # 1.2 K/mm3 (0.1-1.0); Monocytes % 8.9 % (1.7-9.3); Neutrophils # 9.6 K/mm3 (1.8-7.8); Platelet Count 282 K/mm3 (142-424); Red Cell Distribution Width 13.7 % (11.5-17.5)
[2024-09-19 14:02] LABS: Chloride 102 mmol/L (98-107)
[2024-09-19 14:03] LABS: Albumin Level 3.9 g/dl (3.5-5.0); Potassium 4.3 mmoL/L (3.5-5.1); Sodium 137 mmol/L (136-145)
[2024-09-19 14:05] LABS: Blood Urea Nitrogen 23 mg/dl (7-17); Creatinine Clearance Estimated 62 mL/min (50-200); Estimated Glomerular Filt Rate 62 ml/min (>60); GFR (African American) 75 ML/MIN (>60)
[2024-09-19 14:06] LABS: Alanine Aminotransferase 23 U/L (12-78); Albumin/Globulin Ratio 1.6 (1.1-1.8); Alkaline Phosphatase 73 U/L (38-126); Anion Gap 14.3 mEq/L (5-15); Aspartate Amino Transferase 25 U/L (14-36); Bilirubin,Total 0.3 mg/dl (0.2-1.3); Calcium 9.6 mg/dl (8.4-10.2); Carbon Dioxide 25 mmol/L (22.0-30.0); Globulin 2.4 g/dL (1.3-3.2); Glucose 234 mg/dl (74-100); Total Protein,Serum 6.3 g/dl (6.3-8.2)
[2024-09-19 14:27] VITALS: BP 115/49; PULSE 70; RESP 22; TEMP 36.6; O2SAT 98
[2024-09-19] MEDS: PEMBROLIZUMAB 200 MG in 0.9 % SODIUM CHLORIDE 50 ML 116 MG IV (14:27)
[2024-09-19 15:15] VITALS: BP 121/55; PULSE 66; RESP 20; O2SAT 98
[2024-09-19] MEDS: SODIUM CHLORIDE 0.9% 10ML FLUSH SYRINGE 10 ML IV (15:19)
[2024-09-19] MEDS: SODIUM CHLORIDE 0.9% 50ML BAG 50 ML IV (15:20)
== END 2024-09-19 15:15 | disposition home or self-care (01) ==
LOC: INF 13:00
PROVIDERS: PCP Internal Medicine Adolescent Medicine; Visit Provider Internal Medicine Medical Oncology
DX: C34.90 Malignant neoplasm of unspecified part of unspecified bronchus or lung (principal)
CPT/HCPCS: 80053; 85025; 96413; J1642; J9271

== ENCOUNTER 2024-10-10 10:51 | Outpatient (CLI) | payer MEDICARE, SELFPAY ==
[2024-10-10 10:54] VITALS: BMI 29.8
[2024-10-10 11:19] LABS: Basophils # 0.1 K/mm3 (0-0.2); Basophils % 0.8 % (0.1-2.0); Eosinophils # 2.2 K/mm3 (0.0-0.4); Eosinophils % 22.3 % (0.1-12.0); Hemoglobin 11.6 g/dL (12.2-16.2); Lymphocytes # 2.1 K/mm3 (0.7-4.5); Lymphocytes % 20.9 % (10-50); Mean Corpuscular HGB Conc 33.1 g/dL (31.8-35.4); Mean Corpuscular Hemoglobin 32.8 pg (27.0-31.2); Mean Corpuscular Volume 98.9 fl (81-99); Mean Platelet Volume 10.6 fl (7.4-10.4); Monocytes # 0.9 K/mm3 (0.1-1.0); Monocytes % 9.4 % (1.7-9.3); Neutrophils # 4.5 K/mm3 (1.8-7.8); Neutrophils % 45.5 % (37.0-80.0); Platelet Count 221 K/mm3 (142-424); Red Blood Count 3.54 M/mm3 (4.20-5.40); Red Cell Distribution Width 13.7 % (11.5-17.5); White Blood Count 9.9 K/mm3 (4.8-10.8)
[2024-10-10 11:20] LABS: Chloride 104 mmol/L (98-107)
[2024-10-10 11:21] LABS: Albumin Level 3.8 g/dl (3.5-5.0); Potassium 4.2 mmoL/L (3.5-5.1); Sodium 137 mmol/L (136-145)
[2024-10-10 11:23] LABS: Alanine Aminotransferase 27 U/L (12-78); Aspartate Amino Transferase 27 U/L (14-36); Blood Urea Nitrogen 24 mg/dl (7-17); Creatinine Clearance Estimated 62 mL/min (50-200); Estimated Glomerular Filt Rate 55 ml/min (>60); GFR (African American) 67 ML/MIN (>60)
[2024-10-10 11:24] LABS: Albumin/Globulin Ratio 1.7 (1.1-1.8); Alkaline Phosphatase 83 U/L (38-126); Anion Gap 11.2 mEq/L (5-15); Bilirubin,Total 0.2 mg/dl (0.2-1.3); Calcium 9.1 mg/dl (8.4-10.2); Carbon Dioxide 26 mmol/L (22.0-30.0); Globulin 2.3 g/dL (1.3-3.2); Glucose 262 mg/dl (74-100); Total Protein,Serum 6.1 g/dl (6.3-8.2)
[2024-10-10] MEDS: PEMBROLIZUMAB 200 MG in 0.9 % SODIUM CHLORIDE 50 ML 116 MG IV (11:48)
[2024-10-10 11:53] VITALS: BP 114/43; PULSE 72; RESP 18; TEMP 36.6; O2SAT 97
[2024-10-10] MEDS: SODIUM CHLORIDE 0.9% 50ML BAG 50 ML IV (11:56)
[2024-10-10 12:05] LABS: Thyroid Stimulating Hormone 1.34 uIU/mL (0.465-4.68)
[2024-10-10] MEDS: SODIUM CHLORIDE 0.9% 10ML FLUSH SYRINGE 10 ML IV (12:37)
[2024-10-10 12:40] VITALS: BP 113/54; PULSE 76; RESP 18; O2SAT 96
[2024-10-12 15:38] LABS: Adrenocorticotropic Hormone 8.8 pg/mL (7.2-63.3)
== END 2024-10-10 12:40 | disposition home or self-care (01) ==
LOC: INF 10:53
PROVIDERS: Visit Provider Internal Medicine Medical Oncology
DX: C34.12 Malignant neoplasm of upper lobe, left bronchus or lung (principal); Z51.11 Encounter for antineoplastic chemotherapy; Z79.899 Other long term (current) drug therapy
CPT/HCPCS: 80053; 82024; 82533; 84443; 85025; 96413; J1642; J9271

== ENCOUNTER 2024-10-30 12:58 | Outpatient (CLI) | payer MEDICARE, SELFPAY ==
[2024-10-30 13:04] VITALS: BMI 28.9
[2024-10-30 13:18] LABS: Basophils # 0.1 K/mm3 (0-0.2); Eosinophils # 2.3 K/mm3 (0.0-0.4); Eosinophils % 22.5 % (0.1-12.0); Hematocrit 35.7 % (37.0-47.0); Hemoglobin 12.1 g/dL (12.2-16.2); Lymphocytes # 2.5 K/mm3 (0.7-4.5); Mean Corpuscular HGB Conc 33.9 g/dL (31.8-35.4); Mean Corpuscular Hemoglobin 33.2 pg (27.0-31.2); Mean Corpuscular Volume 98.1 fl (81-99); Mean Platelet Volume 10.2 fl (7.4-10.4); Monocytes # 0.9 K/mm3 (0.1-1.0); Monocytes % 9.1 % (1.7-9.3); Neutrophils # 4.3 K/mm3 (1.8-7.8); Neutrophils % 42.3 % (37.0-80.0); Platelet Count 260 K/mm3 (142-424); Red Blood Count 3.64 M/mm3 (4.20-5.40); Red Cell Distribution Width 13.7 % (11.5-17.5); White Blood Count 10.2 K/mm3 (4.8-10.8)
[2024-10-30 13:34] LABS: Alanine Aminotransferase 31 U/L (12-78); Albumin Level 4.4 g/dl (3.5-5.0); Albumin/Globulin Ratio 1.8 (1.1-1.8); Alkaline Phosphatase 89 U/L (38-126); Anion Gap 15.4 mEq/L (5-15); Aspartate Amino Transferase 26 U/L (14-36); Bilirubin,Total 0.5 mg/dl (0.2-1.3); Blood Urea Nitrogen 26 mg/dl (7-17); Calcium 9.3 mg/dl (8.4-10.2); Carbon Dioxide 27 mmol/L (22.0-30.0); Chloride 99 mmol/L (98-107); Creatinine Clearance Estimated 50 mL/min (50-200); Estimated Glomerular Filt Rate 45 ml/min (>60); GFR (African American) 54 ML/MIN (>60); Globulin 2.5 g/dL (1.3-3.2); Glucose 223 mg/dl (74-100); Potassium 4.4 mmoL/L (3.5-5.1); Sodium 137 mmol/L (136-145); Total Protein,Serum 6.9 g/dl (6.3-8.2)
[2024-10-30] MEDS: PEMBROLIZUMAB 200 MG in 0.9 % SODIUM CHLORIDE 50 ML 116 MG IV (14:11)
[2024-10-30] MEDS: SODIUM CHLORIDE 0.9% 50ML BAG 50 ML IV (14:11)
[2024-10-30 14:15] VITALS: BP 121/76; PULSE 79; RESP 18; TEMP 36.7; O2SAT 96
[2024-10-30] MEDS: SODIUM CHLORIDE 0.9% 10ML FLUSH SYRINGE 10 ML IV (14:58)
[2024-10-30 15:02] VITALS: BP 126/62; PULSE 73; RESP 18; O2SAT 96
== END 2024-10-30 15:02 | disposition home or self-care (01) ==
LOC: INF 12:59
PROVIDERS: PCP Internal Medicine Adolescent Medicine; Visit Provider Internal Medicine Medical Oncology
DX: Z51.11 Encounter for antineoplastic chemotherapy (principal); C34.12 Malignant neoplasm of upper lobe, left bronchus or lung; Z79.899 Other long term (current) drug therapy
CPT/HCPCS: 80053; 85025; 96413; J1642; J9271

== ENCOUNTER 2024-11-20 10:47 | Outpatient (CLI) | payer MEDICARE, SELFPAY ==
[2024-11-20 10:53] VITALS: BMI 28.9
[2024-11-20 11:25] LABS: Chloride 102 mmol/L (98-107); Sodium 135 mmol/L (136-145)
[2024-11-20 11:26] LABS: Potassium 4.5 mmoL/L (3.5-5.1)
[2024-11-20 11:28] LABS: Alanine Aminotransferase 24 U/L (12-78); Anion Gap 10.5 mEq/L (5-15); Aspartate Amino Transferase 24 U/L (14-36); Blood Urea Nitrogen 27 mg/dl (7-17); Carbon Dioxide 27 mmol/L (22.0-30.0); Creatinine Clearance Estimated 40 mL/min (50-200); Estimated Glomerular Filt Rate 34 ml/min (>60); GFR (African American) 42 ML/MIN (>60)
[2024-11-20 11:29] LABS: Albumin/Globulin Ratio 1.8 (1.1-1.8); Alkaline Phosphatase 79 U/L (38-126); Bilirubin,Total 0.2 mg/dl (0.2-1.3); Calcium 9.3 mg/dl (8.4-10.2); Globulin 2.2 g/dL (1.3-3.2); Glucose 218 mg/dl (74-100); Total Protein,Serum 6.2 g/dl (6.3-8.2)
[2024-11-20 11:36] LABS: Basophils # 0.1 K/mm3 (0-0.2); Basophils % 0.7 % (0.1-2.0); Eosinophils # 1.5 K/mm3 (0.0-0.4); Eosinophils % 16.2 % (0.1-12.0); Hematocrit 33.9 % (37.0-47.0); Hemoglobin 11.5 g/dL (12.2-16.2); Lymphocytes # 1.8 K/mm3 (0.7-4.5); Lymphocytes % 19.4 % (10-50); Mean Corpuscular HGB Conc 33.9 g/dL (31.8-35.4); Mean Corpuscular Hemoglobin 33.5 pg (27.0-31.2); Mean Corpuscular Volume 98.8 fl (81-99); Mean Platelet Volume 10.3 fl (7.4-10.4); Monocytes # 0.8 K/mm3 (0.1-1.0); Monocytes % 8.7 % (1.7-9.3); Neutrophils % 53.1 % (37.0-80.0); Platelet Count 230 K/mm3 (142-424); Red Blood Count 3.43 M/mm3 (4.20-5.40); Red Cell Distribution Width 13.6 % (11.5-17.5); White Blood Count 9.3 K/mm3 (4.8-10.8)
[2024-11-20 12:00] LABS: Thyroid Stimulating Hormone 0.71 uIU/mL (0.465-4.68)
[2024-11-20] MEDS: SODIUM CHLORIDE 0.9% 10ML FLUSH SYRINGE 10 ML IV (12:55)
[2024-11-21 13:10] LABS: Adrenocorticotropic Hormone 8.6 pg/mL (7.2-63.3)
== END 2024-11-20 12:30 | disposition home or self-care (01) ==
LOC: INF 10:47
PROVIDERS: PCP Internal Medicine Adolescent Medicine; Visit Provider Internal Medicine Medical Oncology
DX: C34.12 Malignant neoplasm of upper lobe, left bronchus or lung (principal)
CPT/HCPCS: 36591; 80053; 82024; 82533; 84443; 85025; J1642

== ENCOUNTER 2024-11-27 12:16 | Outpatient (CLI) | payer MEDICARE, SELFPAY ==
[2024-11-27 12:21] VITALS: BMI 28.9
[2024-11-27] MEDS: SODIUM CHLORIDE 0.9% 10ML FLUSH SYRINGE 10 ML IV (12:43)
[2024-11-27 12:47] LABS: Albumin Level 4.1 g/dl (3.5-5.0); Chloride 103 mmol/L (98-107); Sodium 134 mmol/L (136-145)
[2024-11-27 12:50] LABS: Alanine Aminotransferase 30 U/L (12-78); Albumin/Globulin Ratio 1.9 (1.1-1.8); Alkaline Phosphatase 88 U/L (38-126); Aspartate Amino Transferase 23 U/L (14-36); Bilirubin,Total 0.3 mg/dl (0.2-1.3); Blood Urea Nitrogen 19 mg/dl (7-17); Carbon Dioxide 25 mmol/L (22.0-30.0); Creatinine Clearance Estimated 60 mL/min (50-200); Estimated Glomerular Filt Rate 62 ml/min (>60); GFR (African American) 75 ML/MIN (>60); Globulin 2.2 g/dL (1.3-3.2); Total Protein,Serum 6.3 g/dl (6.3-8.2)
[2024-11-27 12:51] LABS: Calcium 9.2 mg/dl (8.4-10.2); Glucose 250 mg/dl (74-100)
== END 2024-11-27 12:44 | disposition home or self-care (01) ==
LOC: INF 12:16
PROVIDERS: PCP Internal Medicine Adolescent Medicine; Visit Provider Internal Medicine Medical Oncology
DX: C34.12 Malignant neoplasm of upper lobe, left bronchus or lung (principal)
CPT/HCPCS: 36591; 80053; J1642

== ENCOUNTER 2024-12-04 11:04 | Outpatient (CLI) | payer MEDICARE, SELFPAY ==
[2024-12-04 11:11] VITALS: BMI 28.9
[2024-12-04 11:27] LABS: Basophils # 0.1 K/mm3 (0-0.2); Basophils % 0.7 % (0.1-2.0); Eosinophils # 0.4 K/mm3 (0.0-0.4); Eosinophils % 4.3 % (0.1-12.0); Hemoglobin 11.6 g/dL (12.2-16.2); Lymphocytes # 1.6 K/mm3 (0.7-4.5); Mean Corpuscular HGB Conc 34.1 g/dL (31.8-35.4); Mean Corpuscular Hemoglobin 34.1 pg (27.0-31.2); Mean Platelet Volume 10.2 fl (7.4-10.4); Monocytes # 0.9 K/mm3 (0.1-1.0); Monocytes % 10.4 % (1.7-9.3); Neutrophils # 5.4 K/mm3 (1.8-7.8); Neutrophils % 62.9 % (37.0-80.0); Platelet Count 270 K/mm3 (142-424); Red Cell Distribution Width 14.1 % (11.5-17.5); White Blood Count 8.6 K/mm3 (4.8-10.8)
[2024-12-04 11:32] LABS: Albumin Level 3.6 g/dl (3.5-5.0); Chloride 103 mmol/L (98-107)
[2024-12-04 11:33] LABS: Potassium 4.1 mmoL/L (3.5-5.1); Sodium 134 mmol/L (136-145)
[2024-12-04 11:35] LABS: Alanine Aminotransferase 27 U/L (12-78); Anion Gap 9.1 mEq/L (5-15); Aspartate Amino Transferase 17 U/L (14-36); Blood Urea Nitrogen 14 mg/dl (7-17); Carbon Dioxide 26 mmol/L (22.0-30.0); Creatinine Clearance Estimated 60 mL/min (50-200); Estimated Glomerular Filt Rate 62 ml/min (>60); GFR (African American) 75 ML/MIN (>60)
[2024-12-04 11:36] LABS: Albumin/Globulin Ratio 1.6 (1.1-1.8); Alkaline Phosphatase 79 U/L (38-126); Bilirubin,Total 0.3 mg/dl (0.2-1.3); Globulin 2.2 g/dL (1.3-3.2); Glucose 313 mg/dl (74-100); Total Protein,Serum 5.8 g/dl (6.3-8.2)
[2024-12-04] MEDS: SODIUM CHLORIDE 0.9% 50ML BAG 50 ML IV (12:30)
[2024-12-04] MEDS: PEMBROLIZUMAB 200 MG in 0.9 % SODIUM CHLORIDE 50 ML 116 MG IV (12:31)
[2024-12-04 12:35] VITALS: BP 125/77; PULSE 63; RESP 18; TEMP 36.9; O2SAT 96
[2024-12-04 12:50] VITALS: BP 139/73; PULSE 70; RESP 17
[2024-12-04 13:05] VITALS: BP 150/63; PULSE 74; RESP 16
[2024-12-04 13:10] VITALS: BP 112/72; PULSE 72; RESP 17
== END 2024-12-04 13:30 | disposition home or self-care (01) ==
LOC: INF 11:04
PROVIDERS: PCP Internal Medicine Adolescent Medicine; Visit Provider Internal Medicine Medical Oncology
DX: Z51.11 Encounter for antineoplastic chemotherapy (principal); C34.12 Malignant neoplasm of upper lobe, left bronchus or lung
CPT/HCPCS: 80053; 85025; 96413; J1642; J9271

== ENCOUNTER 2024-12-12 13:03 | Outpatient (CLI) | payer MEDICARE, SELFPAY ==
[2024-12-12 13:05] VITALS: BMI 30.3
[2024-12-12] MEDS: SODIUM CHLORIDE 0.9% 10ML FLUSH SYRINGE 10 ML IV (13:16)
[2024-12-12 13:29] LABS: Albumin Level 4.4 g/dl (3.5-5.0); Chloride 95 mmol/L (98-107); Potassium 4.3 mmoL/L (3.5-5.1); Sodium 134 mmol/L (136-145)
[2024-12-12 13:31] LABS: Blood Urea Nitrogen 25 mg/dl (7-17); Creatinine Clearance Estimated 53 mL/min (50-200); Estimated Glomerular Filt Rate 45 ml/min (>60); GFR (African American) 54 ML/MIN (>60)
[2024-12-12 13:32] LABS: Alanine Aminotransferase 28 U/L (12-78); Albumin/Globulin Ratio 1.9 (1.1-1.8); Alkaline Phosphatase 96 U/L (38-126); Anion Gap 16.3 mEq/L (5-15); Aspartate Amino Transferase 21 U/L (14-36); Bilirubin,Total 0.4 mg/dl (0.2-1.3); Carbon Dioxide 27 mmol/L (22.0-30.0); Globulin 2.3 g/dL (1.3-3.2); Total Protein,Serum 6.7 g/dl (6.3-8.2)
[2024-12-12 13:40] LABS: Glucose 415 mg/dl (74-100)
== END 2024-12-12 13:19 | disposition home or self-care (01) ==
LOC: INF 13:04
PROVIDERS: PCP Internal Medicine Adolescent Medicine; Visit Provider Internal Medicine Medical Oncology
DX: C34.12 Malignant neoplasm of upper lobe, left bronchus or lung (principal)
CPT/HCPCS: 36591; 80053; J1642

== ENCOUNTER 2024-12-19 13:45 | Outpatient (CLI) | payer MEDICARE, SELFPAY ==
[2024-12-19 14:04] VITALS: BMI 30.3
[2024-12-19] MEDS: SODIUM CHLORIDE 0.9% 10ML FLUSH SYRINGE 10 ML IV (14:21)
[2024-12-19 14:23] LABS: Alanine Aminotransferase 30 U/L (12-78); Albumin/Globulin Ratio 1.4 (1.1-1.8); Alkaline Phosphatase 96 U/L (38-126); Aspartate Amino Transferase 22 U/L (14-36); Bilirubin,Total 0.4 mg/dl (0.2-1.3); Blood Urea Nitrogen 31 mg/dl (7-17); Carbon Dioxide 31 mmol/L (22.0-30.0); Chloride 92 mmol/L (98-107); Creatinine Clearance Estimated 49 mL/min (50-200); Estimated Glomerular Filt Rate 41 ml/min (>60); GFR (African American) 49 ML/MIN (>60); Globulin 2.8 g/dL (1.3-3.2); Glucose 288 mg/dl (74-100); Sodium 134 mmol/L (136-145); Total Protein,Serum 6.8 g/dl (6.3-8.2)
[2024-12-19 14:39] LABS: Anion Gap 15.3 mEq/L (5-15); Potassium 4.3 mmoL/L (3.5-5.1)
== END 2024-12-19 14:22 | disposition home or self-care (01) ==
LOC: INF 13:45
PROVIDERS: PCP Internal Medicine Adolescent Medicine; Visit Provider Internal Medicine Medical Oncology
DX: C34.90 Malignant neoplasm of unspecified part of unspecified bronchus or lung (principal)
CPT/HCPCS: 36591; 80053; J1642

== ENCOUNTER 2024-12-24 10:05 | Outpatient (CLI) | payer MEDICARE, SELFPAY ==
--- NOTE | 2024-12-24 10:15 | CT_ITS ---
FINAL REPORT TECHNIQUE: After the administration of intravenous contrast, axial images through the chest were performed by computed tomography. This study was performed with techniques to keep radiation doses as low as reasonably achievable, (ALARA). Individualized dose reduction techniques using automated exposure control or adjustment of mA and/or kV according to the patient's size were employed. CLINICAL HISTORY: lung cancer compare to images powershared from [place] COMPARISON: 04/08/2024 FINDINGS: There is an irregular mass in the left upper lobe extending to the lung apex. The cavitary component has decreased in size from the previous exam. The lesion now measures 37 x 25 mm and previously measured 33 x 26 mm. Enlarging peripheral nodules in the right upper lobe are suspicious for metastasis. There is a new oval nodule measuring up to 10 mm on image 23. There is a right upper lobe nodule measuring 9 mm which previously measured 10 mm. There are also small but enlarging nodules on images 28 through 30 in the right upper lobe. A left lower lobe nodule on image 42 is stable measuring 8 mm. There is no significant pleural effusion. There is no significant pericardial effusion. No mediastinal or hilar adenopathy is present. IMPRESSION: Left upper lobe masslike density larger from previous. However, some enlargement could be due to postobstructive change and/or surrounding fibrotic tissue. PET/CT correlation may be helpful. New/enlarging nodules in the periphery of the right upper lobe raising the question of metastatic disease. No effusion or adenopathy. Reviewed, Interpreted and Dictated by Callum Armas MD Transcribed by Radha Burrell Authenticated and [facility]
--- NOTE | 2024-12-24 10:15 | CT_ITS ---
FINAL REPORT TECHNIQUE: After the administration of oral and intravenous contrast, axial images were obtained through the abdomen and pelvis by computed tomography. The study was performed with techniques to keep radiation dose as low as reasonably achievable, (ALARA). Individual dose reduction techniques using automated exposure control or adjustment of mA and/or kV according to the patient's size were employed. CLINICAL HISTORY: lung cancer compare to images powershared from [place] COMPARISON: 06/20/2024 FINDINGS: Abdomen: Tiny scattered hypodense lesions in the liver probably represent cysts. These measure 5 mm or less. The pancreas, spleen, left adrenal gland, and kidneys are unremarkable. There is a soft tissue nodule in the central right adrenal gland which is stable measuring up to 15 mm. There is a separate fatty lesion in the right adrenal gland measuring 18 mm compatible with myelolipoma. The gallbladder is unremarkable. No bowel obstruction is present. There is no free air. No fluid collection is seen. There is no adenopathy. Pelvis: The appendix is not well-visualized. Pelvic bowel loops are unremarkable. The patient is status post hysterectomy. The urinary bladder is unremarkable. There is no free fluid. No pelvic mass is seen. Bones: Old right greater trochanter fracture without obvious pathologic component. IMPRESSION: Stable right adrenal soft tissue nodule favored to be benign. No convincing evidence of metastatic disease. Reviewed, Interpreted and Dictated by Callum Armas MD Transcribed by Radha Burrell Authenticated and [facility]
[2024-12-24 10:33] VITALS: BMI 30.3
[2024-12-24 10:37] LABS: Basophils # 0.1 K/mm3 (0-0.2); Basophils % 0.7 % (0.1-2.0); Eosinophils # 0.3 K/mm3 (0.0-0.4); Eosinophils % 3.3 % (0.1-12.0); Hematocrit 35.6 % (37.0-47.0); Hemoglobin 12.4 g/dL (12.2-16.2); Lymphocytes # 3.1 K/mm3 (0.7-4.5); Mean Corpuscular HGB Conc 34.8 g/dL (31.8-35.4); Mean Corpuscular Hemoglobin 34.2 pg (27.0-31.2); Mean Corpuscular Volume 98.1 fl (81-99); Mean Platelet Volume 10.4 fl (7.4-10.4); Monocytes # 0.9 K/mm3 (0.1-1.0); Monocytes % 8.9 % (1.7-9.3); Neutrophils % 51.3 % (37.0-80.0); Platelet Count 273 K/mm3 (142-424); Red Blood Count 3.63 M/mm3 (4.20-5.40); Red Cell Distribution Width 13.2 % (11.5-17.5); White Blood Count 9.8 K/mm3 (4.8-10.8)
[2024-12-24 10:43] LABS: Albumin Level 3.8 g/dl (3.5-5.0); Chloride 100 mmol/L (98-107); Potassium 4.6 mmoL/L (3.5-5.1); Sodium 135 mmol/L (136-145)
[2024-12-24 10:46] LABS: Alanine Aminotransferase 27 U/L (12-78); Albumin/Globulin Ratio 1.5 (1.1-1.8); Alkaline Phosphatase 78 U/L (38-126); Anion Gap 12.6 mEq/L (5-15); Aspartate Amino Transferase 24 U/L (14-36); Bilirubin,Total 0.4 mg/dl (0.2-1.3); Blood Urea Nitrogen 24 mg/dl (7-17); Calcium 9.3 mg/dl (8.4-10.2); Carbon Dioxide 27 mmol/L (22.0-30.0); Creatinine Clearance Estimated 63 mL/min (50-200); Estimated Glomerular Filt Rate 55 ml/min (>60); GFR (African American) 67 ML/MIN (>60); Globulin 2.5 g/dL (1.3-3.2); Glucose 180 mg/dl (74-100); Total Protein,Serum 6.3 g/dl (6.3-8.2)
[2024-12-24] MEDS: SODIUM CHLORIDE 0.9% 10ML SYR (RAD ONLY) 10 ML IV (11:03)
[2024-12-24] MEDS: IOPAMIDOL-370 (76%);100ML BOTTLE 75 ML IV (11:03)
--- NOTE | 2024-12-24 12:46 | PC.NURSE ---
1235-Pt returned to outpt infusion dept, s/p MD appt. Ok to proceed with tx pending ct scan results. Awaiting results to determine poc
== END 2024-12-24 13:38 | disposition home or self-care (01) ==
LOC: INF 10:06
PROVIDERS: PCP Internal Medicine Adolescent Medicine; Visit Provider Internal Medicine Medical Oncology
DX: C34.12 Malignant neoplasm of upper lobe, left bronchus or lung (principal)
CPT/HCPCS: 36591; 71260; 74177; 80053; 85025; J1642; Q9967

== ENCOUNTER 2025-01-08 12:55 | Outpatient (CLI) | payer MEDICARE, SELFPAY ==
[2025-01-08 13:02] VITALS: BMI 28.9
[2025-01-08 13:29] LABS: Basophils % 0.5 % (0.1-2.0); Eosinophils # 1.3 Kmm3 (0.0-0.4); Eosinophils % 15.6 % (0.1-12.0); Hematocrit 36.5 % (37.0-47.0); Hemoglobin 12.2 g/dL (12.2-16.2); Lymphocytes # 1.9 K/mm3 (0.7-4.5); Lymphocytes % 23.3 % (10-50); Mean Corpuscular HGB Conc 33.4 g/dL (31.8-35.4); Mean Corpuscular Hemoglobin 34.1 pg (27.0-31.2); Mean Platelet Volume 10.2 fl (7.4-10.4); Monocytes # 0.6 K/mm3 (0.1-1.0); Monocytes % 7.4 % (1.7-9.3); Neutrophils % 48.5 % (37.0-80.0); Nucleated Red Blood Cells # 0 10^3/uL; Nucleated Red Blood Cells % 0 %; Platelet Count 242 K/mm3 (142-424); Red Blood Count 3.58 M/mm3 (4.20-5.40); Red Cell Distribution Width 13.7 % (11.5-17.5); Red Cell Distribution Width-SD 51.3 fL; White Blood Count 8.2 K/mm3 (4.8-10.8)
[2025-01-08 13:41] LABS: Albumin Level 3.7 g/dl (3.5-5.0); Chloride 108 mmol/L (98-107); Potassium 4.2 mmoL/L (3.5-5.1); Sodium 139 mmol/L (136-145)
[2025-01-08 13:43] LABS: Alanine Aminotransferase 48 U/L (12-78); Anion Gap 16.2 mEq/L (5-15); Aspartate Amino Transferase 40 U/L (14-36); Blood Urea Nitrogen 18 mg/dl (7-17); Carbon Dioxide 19 mmol/L (22.0-30.0); Creatinine Clearance Estimated 50 mL/min (50-200); Estimated Glomerular Filt Rate 45 ml/min (>60); GFR (African American) 54 ML/MIN (>60)
[2025-01-08 13:44] LABS: Albumin/Globulin Ratio 1.4 (1.1-1.8); Alkaline Phosphatase 81 U/L (38-126); Bilirubin,Total 0.2 mg/dl (0.2-1.3); Calcium 9.5 mg/dl (8.4-10.2); Globulin 2.7 g/dL (1.3-3.2); Glucose 191 mg/dl (74-100); Total Protein,Serum 6.4 g/dl (6.3-8.2)
[2025-01-08 14:15] LABS: Thyroid Stimulating Hormone 0.73 uIU/mL (0.465-4.68)
[2025-01-08] MEDS: SODIUM CHLORIDE 0.9% 50ML BAG 50 ML IV (14:17)
[2025-01-08] MEDS: SODIUM CHLORIDE 0.9% 10ML FLUSH SYRINGE 10 ML IV (14:18)
[2025-01-08 14:24] VITALS: BP 129/53; PULSE 87; RESP 20; TEMP 36.6; O2SAT 95
[2025-01-08] MEDS: PEMBROLIZUMAB 400 MG in 0.9 % SODIUM CHLORIDE 50 ML 132 MG IV (14:24)
[2025-01-08 15:19] VITALS: BP 119/64; PULSE 76; RESP 20; O2SAT 95
== END 2025-01-08 15:19 | disposition home or self-care (01) ==
LOC: INF 12:56
PROVIDERS: PCP Internal Medicine Adolescent Medicine; Visit Provider Internal Medicine Medical Oncology
DX: C34.90 Malignant neoplasm of unspecified part of unspecified bronchus or lung (principal)
CPT/HCPCS: 80053; 82533; 84443; 85025; 96413; J1642; J9271

== ENCOUNTER 2025-02-16 13:15 | Outpatient (CLI) | payer MEDICARE, SELFPAY ==
--- NOTE | 2025-02-16 13:20 | XR_ITS ---
FINAL REPORT TECHNIQUE: Bone densitometry calculations of the lumbar spine, right hip, and bilateral forearms were obtained. CLINICAL HISTORY: SCREENING COMPARISON: 11/02/2023 FINDINGS: Using L1-4, the bone mineral density of the spine is 1.151 g/cm2, corresponding to T-score of 0.9 and a Z score of 3.0. This is within the range of normal. Using the right hip, the bone mineral density of the femoral neck is 0.600 g/cm2, corresponding to a T-score of -2.2 and a Z-score of -0.5. This is within the range of osteopenia. Using the right forearm, the bone mineral density of the 1/3 is 0.531 g/cm?, corresponding to a T-score of -2.7 and a Z-score of -0.7. This is within the range of osteoporosis. Using the left forearm, the bone mineral density of the 1/3 is 0.644 g/cm?, corresponding to a T-score of -0.8 and a Z-score of 1.2. This is within the range of normal. NOTE: T-score: Standard deviation compared with peak bone mass of young adult mean. *Following the recommendations of the International Society of Bone densitometry, classification of hip BMD is based on the lower of two T-scores; total hip or femoral neck. IMPRESSION: 1. Bone mineral density of the lumbar spine within the range of normal. 2. Bone mineral density of the right femoral neck within the range of osteopenia. 3. Bone mineral density of the right forearm is within the range of osteoporosis. 4. Bone mineral density of the left forearm is within the range of normal. Reviewed, Interpreted and Dictated by Keila Jacobs MD Transcribed by Sonia Vazquez Authenticated and [facility]
--- NOTE | 2025-02-16 13:20 | MM_ITS ---
PROCEDURE INFORMATION: Exam: MG Bilateral Screening 3D Mammography Exam date and time: 02/16/2025 1:51 PM Age: 69 years old Clinical indication: Screening examination TECHNIQUE: Imaging protocol: Bilateral Screening tomosynthesis and 2D mammography including computer-aided detection (CAD) when performed. COMPARISON: 1. MG MM DIG SCREENING MAMM BI W/CAD 11/02/2023 8:03 AM 2. MG MM DIG SCREENING MAMM BI W/CAD 12/03/2020 9:45 AM FINDINGS: MAMMOGRAPHY: Breast composition: There are scattered areas of fibroglandular density. Mass: None. Architectural distortion: None. Calcifications: No suspicious calcifications. Asymmetric density: None. Skin thickening: None. Axillary adenopathy: None. IMPRESSION: No mammographic evidence of malignancy. Annual screening is recommended unless otherwise clinically indicated. ASSESSMENT: BI-RADS 1, Negative.
== END 2025-02-16 23:59 | disposition home or self-care (01) ==
LOC: RAD 13:16
PROVIDERS: PCP Nurse Practitioner Family; Visit Provider Nurse Practitioner Family
DX: Z12.31 Encounter for screening mammogram for malignant neoplasm of breast (principal); M85.851 Other specified disorders of bone density and structure, right thigh; M81.0 Age-related osteoporosis without current pathological fracture; R92.323 Mammographic fibroglandular density, bilateral breasts
CPT/HCPCS: 77063; 77067; 77080

== ENCOUNTER 2025-02-19 12:39 | Outpatient (CLI) | payer MEDICARE, SELFPAY ==
[2025-02-19 12:56] VITALS: BMI 28.9
[2025-02-19 13:06] LABS: Basophils # 0.1 K/mm3 (0-0.2); Basophils % 1.2 % (0.1-2.0); Eosinophils # 1.9 Kmm3 (0.0-0.4); Eosinophils % 19.8 % (0.1-12.0); Hematocrit 35.7 % (37.0-47.0); Hemoglobin 12.1 g/dL (12.2-16.2); Immature Granulocytes # 0.15 10^3uL; Immature Granulocytes % 1.6 %; Lymphocytes # 2.1 K/mm3 (0.7-4.5); Lymphocytes % 22.6 % (10-50); Mean Corpuscular HGB Conc 33.9 g/dL (31.8-35.4); Mean Corpuscular Hemoglobin 34.7 pg (27.0-31.2); Mean Corpuscular Volume 102.3 fl (81-99); Mean Platelet Volume 9.6 fl (7.4-10.4); Monocytes # 0.9 K/mm3 (0.1-1.0); Monocytes % 9.8 % (1.7-9.3); Neutrophils # 4.2 K/mm3 (1.8-7.8); Nucleated Red Blood Cells # 0 10^3/uL; Nucleated Red Blood Cells % 0 %; Platelet Count 295 K/mm3 (142-424); Red Blood Count 3.49 M/mm3 (4.20-5.40); Red Cell Distribution Width 14.6 % (11.5-17.5); Red Cell Distribution Width-SD 54.3 fL; White Blood Count 9.3 K/mm3 (4.8-10.8)
[2025-02-19 13:14] LABS: Chloride 105 mmol/L (98-107); Potassium 4.7 mmoL/L (3.5-5.1); Sodium 138 mmol/L (136-145)
[2025-02-19 13:17] LABS: Alanine Aminotransferase 22 U/L (12-78); Alkaline Phosphatase 78 U/L (38-126); Anion Gap 10.7 mEq/L (5-15); Aspartate Amino Transferase 22 U/L (14-36); Bilirubin,Total 0.4 mg/dl (0.2-1.3); Blood Urea Nitrogen 27 mg/dl (7-17); Calcium 9.7 mg/dl (8.4-10.2); Carbon Dioxide 27 mmol/L (22.0-30.0); Creatinine Clearance Estimated 50 mL/min (50-200); Estimated Glomerular Filt Rate 45 ml/min (>60); GFR (African American) 54 ML/MIN (>60); Glucose 191 mg/dl (74-100); Total Protein,Serum 6.5 g/dl (6.3-8.2)
[2025-02-19 13:48] LABS: Thyroid Stimulating Hormone 0.67 uIU/mL (0.465-4.68)
[2025-02-19] MEDS: SODIUM CHLORIDE 0.9% 50ML BAG 50 ML IV (14:51)
[2025-02-19] MEDS: PEMBROLIZUMAB 400 MG in 0.9 % SODIUM CHLORIDE 50 ML 132 MG IV (14:51)
[2025-02-19 14:56] VITALS: BP 150/66; PULSE 68; RESP 19; O2SAT 96
[2025-02-19 15:22] LABS: Albumin Level 3.9 g/dl (3.5-5.0); Albumin/Globulin Ratio 1.5 (1.1-1.8); Globulin 2.6 g/dL (1.3-3.2)
[2025-02-19] MEDS: SODIUM CHLORIDE 0.9% 10ML FLUSH SYRINGE 10 ML IV (15:33)
[2025-02-19 15:38] VITALS: BP 109/42; PULSE 68; RESP 19; O2SAT 96
== END 2025-02-19 15:38 | disposition home or self-care (01) ==
LOC: INF 12:41
PROVIDERS: PCP Internal Medicine Adolescent Medicine; Visit Provider Internal Medicine Medical Oncology
DX: C34.91 Malignant neoplasm of unspecified part of right bronchus or lung (principal)
CPT/HCPCS: 80053; 82533; 84443; 85025; 96413; J1642; J9271

== ENCOUNTER 2025-03-13 17:38 | Inpatient (IN) | payer MEDICARE, SELFPAY ==
[2025-03-13] VITALS (11 sets, daily range): BP systolic 144–186; BP diastolic 76–96; PULSE 89–102; RESP 14–20; TEMP 36.7–37.4; O2SAT 92–98; BMI 28.5; BMI 29.9
--- NOTE | 2025-03-13 18:14 | CT_ITS ---
PROCEDURE INFORMATION: Exam: CT Head Without Contrast Exam date and time: 03/13/2025 6:24 PM Age: 69 years old Clinical indication: Altered mental status/memory loss TECHNIQUE: Imaging protocol: Computed tomography of the head without contrast. Radiation optimization: All CT scans at this facility use at least one of these dose optimization techniques: automated exposure control; mA and/or kV adjustment per patient size (includes targeted exams where dose is matched to clinical indication); or iterative reconstruction. COMPARISON: MR HEAD W AND WO IV CONTRAST 07/09/2024 7:56 AM FINDINGS: Brain: Moderate generalized cerebral/cerebellar atrophy. Mild periventricular white matter hypodensities which are nonspecific but most commonly associated with chronic microvascular ischemia in this age group. The IACs are grossly normal. No extra-axial fluid collections. Mild prominence of the peripheral CSF spaces, related to generalized atrophy. No evidence of acute intracranial hemorrhage. 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 8 mm prominent perivascular space in the right inferior basal ganglia incidentally noted. No intracranial mass lesions. No midline shift or herniation. Cerebral ventricles: Mild compensatory ventriculomegaly secondary to central atrophy. Pituitary gland and sella: The sella is grossly normal. Paranasal sinuses: Visualized paranasal sinuses are clear. Mastoid air cells: Visualized mastoid air cells are clear. Orbital cavities: No acute intraorbital findings. Bones: No acute osseous findings. Soft tissues: No acute soft tissue findings. Vasculature: Moderate calcific atherosclerosis. No asymmetric vascular hyperdensities suggestive of thrombosis are identified. IMPRESSION: No acute intracranial process. No intracranial hemorrhage or mass effect. No gross change from prior imaging.
--- NOTE | 2025-03-13 18:14 | XR_ITS ---
PROCEDURE INFORMATION: Exam: XR Chest Exam date and time: 03/13/2025 6:26 PM Age: 69 years old Clinical indication: Shortness of breath; Additional info: SOA TECHNIQUE: Imaging protocol: Radiologic exam of the chest. Views: 1 view. COMPARISON: CT CHEST W CON 12/24/2024 10:33 AM FINDINGS: Tubes, catheters and devices: Right subclavian port with catheter tip in the SVC. Lungs: Pulmonary vasculature grossly normal. Minor alveolar opacity in the right lung base could represent atelectasis versus early/mild pneumonia. Mild chronic peripheral fibrosis in the right apex with mild apical emphysematous changes. 4 cm left apical mass demonstrates no gross radiographic change from 12/24/2024. Poorly delineated nodular opacities in the lateral right upper lobe appear grossly unchanged from prior CT 12/24/2024 as well. Pleural spaces: No pleural effusion. No pneumothorax. Heart/Mediastinum: Heart size normal. No tracheal/mediastinal shift. Vasculature: Left subclavian artery stent again noted. Bones/joints: No acute osseous abnormalities are identified. IMPRESSION: 1. Questionable mild alveolar opacity in the right lung base which could be due to atelectasis or early pneumonia. Consider radiographic follow-up as clinically indicated. 2. Left apical mass and lateral right upper lobe nodular densities are grossly stable from prior CT. 3. Mild apical emphysematous changes and fibrosis.
--- NOTE | 2025-03-13 18:16 | HMH.EDGENADL ---
Discharge Plan Disposition Patient Disposition: Admitted Condition: Fair Clinical Impressions Clinical Impression: UTI (urinary tract infection), Sepsis, Altered mental status Discharge ED Provider: Chuck Moeller General Adult HPI <KAROLINA Vu - Last Filed: 03/13/25 21:13> General Chief complaint: Altered Mental Status Stated complaint: UTI Time Seen by Provider: 03/13/25 17:57 Mode of Arrival: Ambulatory Source of Information: Patient and Relative Limitations: Altered Mental Status History of Present Illness HPI narrative: 69-year-old female presents to the emergency department with altered mental status, generalized feeling of unwell/weakness for 1 day. Patient feeling numbers are concern for UTI , as patient is prone to frequent UTIs , and is has history of confusion with them. Patient at the bedside is GCS of 14, disoriented to time and date, oriented to person and place, she denies any fever chills chest pain shortness of breath nausea vomiting constipation diarrhea no abdominal pain, no urinary type symptomatology. Patient is a current smoker, denies any alcohol or drug use, other past medical history is consistent with OAB, fibromyalgia, COPD, CHF, HFpEF, pulmonary hypertension, T2DM, PAD, hyperlipidemia, CAD, patient is currently undergoing IV chemotherapy and infusion treatment for unknown lung cancer type. Initial triage vitals are unremarkable. Of note, patient's family numbers at the bedside do endorse a fever , at approximately Tmax of 101 ?F , today, patient did take some Tylenol at 2:30 PM. Onset (ago): day(s) Related Data Home Medications ?Medication ?Instructions ?Recorded ?Confirmed atorvastatin 20 mg tablet 20 mg PO HS 90 days ##90 10/26/17 03/14/25 cetirizine 10 mg tablet 10 mg PO DAILY Allergy symptoms 30 10/26/17 03/14/25 days ##30 clopidogrel 75 mg tablet 75 mg PO DAILY 90 days ##90 10/26/17 03/14/25 metformin 1,000 mg tablet 1,000 mg PO BIDWMEAL 90 days ##180 10/26/17 03/14/25 aspirin 81 mg tablet,delayed 81 mg PO DAILY 05/06/18 03/14/25 release atenolol 25 mg tablet 25 mg PO DAILY 06/03/20 03/14/25 escitalopram oxalate 5 mg tablet 5 mg PO DAILY 06/03/20 03/14/25 ipratropium 0.5 mg-albuterol 3 mg 3 ml inhalation QIDP PRN Shortness 05/03/22 03/14/25 (2.5 mg base)/3 mL nebulization Of Breath soln allopurinol 100 mg tablet 200 mg PO DAILY 12/27/22 03/14/25 colchicine 0.6 mg tablet 0.6 mg PO DAILYP PRN GOUT 02/17/24 03/14/25 spironolactone 50 mg tablet 50 mg PO BID Fluid 01/08/25 03/14/25 estradiol 0.01% (0.1 mg/gram) 1 applic vaginal .TWICE WEEKLY 03/14/25 03/14/25 vaginal cream gabapentin 300 mg capsule 600 mg PO BID 03/14/25 03/14/25 ondansetron 8 mg disintegrating 8 mg PO Q8HP PRN Nausea And 03/14/25 03/14/25 tablet Vomiting prochlorperazine maleate 10 mg 10 mg PO Q6HP PRN nausea and 03/14/25 03/14/25 tablet (Compazine) vomiting promethazine 25 mg tablet 25 mg PO TIDP PRN nausea and 03/14/25 03/14/25 vomiting Previous Rx's ?Medication ?Instructions ?Recorded bumetanide 1 mg tablet 1 mg PO BIDL Fluid 30 days #0 tabs 12/04/23 oxybutynin chloride 10 mg 10 mg PO DAILY #90 tabs 09/03/24 tablet,extended release 24 hr Allergies Allergy/AdvReac Type Severity Reaction Status Date / Time Sulfa (Sulfonamide Allergy Unknown BLISTERING Verified 02/19/25 13:28 Antibiotics) OF THROAT levofloxacin (From Levaquin) Allergy BLISTERS Verified 02/19/25 13:28 IN THROAT [facility] <KAROLINA Vu - Last Filed: 03/13/25 21:13> [facility] Disclaimer: The information contained in this section may have been updated after the patient was seen, as this information can be updated by other users. Medical History Pre-op evaluation Pulmonary fungal infection Gout Smoking greater than 30 pack years COPD mixed type Multiple lung nodules on CT Fungal pneumonia Acute and chronic respiratory failure with hypoxia Intertrochanteric fracture of left hip Status post cephalomedullary nailing Closed left hip fracture Acute respiratory failure with hypoxia Pneumonia due to COVID-19 virus Diabetes mellitus Diastolic dysfunction HLD (hyperlipidemia) HTN (hypertension) Subclavian artery stenosis, left PAD (peripheral artery disease) Tobacco use History of placement of stent in LAD coronary artery CAD (coronary artery disease) APR 2022-Severe ostial mid left main disease as described Successful stenting of the ostial proximal mid distal left main artery reducing the stenosis to less than 10% giving excellent angiograph results Preserved ejection fraction Normal left ventricular end-diastolic pressure Persistent stenosis in a large posterior lateral branch which is best managed medically COPD (chronic obstructive pulmonary disease) ACUÑA (dyspnea on exertion) Surgical History History of hysterectomy History of hip surgery Hx of right coronary artery stent placement Family History Other Asthma Cancer Diabetes Hypertension Social History (Updated 03/13/25 @ 21:52 by Larissa Alarcon RN) Smoking Status: Current every day smoker tobacco type: cigarettes packs per day: 1 second hand exposure: No alcohol intake: never substance use type: denies use current occupational status: disabled Travel in the last 8 weeks?: None household members: none housing: house current occupational exposures/hazards: No caffeine: Yes Have you lived/traveled outside [place] in past 30 days?: No Contact w/someone who lives/traveled outside US past 30 days?: No Exposure to someone with infectious disease in past 14 days?: No Do you have a fever (greater than 100.4 F or 38 C)?: No Have you tested positive for COVID-19?: No Exposed to someone with COVID-19 in past 14 days?: No Do you have a sore throat?: No Do you have a cough?: No Do you have any weakness?: No Are you experiencing any nausea/vomitting?: No Do you have any diarrhea?: No Are you experiencing any unusual bleeding?: No Do you have any muscle aches/pain?: No Do you have any abdominal pain?: No Are you experiencing loss of taste or smell?: No Other Medical History Have you received the Flu Vaccine for this season: No Have you received the Pneumonia Vaccine: Yes <KAROLINA Vu - Last Filed: 03/13/25 21:13> ROS Obtained: Yes All systems reviewed & no additional complaints except as documented Physical Exam <KAROLINA Vu - Last Filed: 03/13/25 21:13> General General appearance: alert and in no apparent distress Head Head exam: atraumatic and normocephalic Eye Eye exam: Present PERRL and EOMI ENT ENT exam: Present mucous membranes moist Neck Neck exam: Present normal inspection Chest Chest inspection: Present normal inspection and symmetric chest wall rise Respiratory Respiratory exam: Present wheezes and other (Diffuse wheezes noted throughout bilateral lung brizuela); Absent normal lung sounds bilaterally or respiratory distress Cardiovascular Cardiovascular exam: Present regular rate and normal rhythm Abdominal Exam Abdominal exam: Present soft; Absent tenderness, guarding, rebound or rigidity Extremities Exam Extremities exam: Present normal inspection Neurological Exam Neurological exam: Present alert and other (GCS of 14, disoriented to time and date, patient otherwise moves extremities command and follows directions.); Absent oriented X3 Psychiatric Psychiatric exam: Present normal affect Skin Skin exam: Present warm and dry Medical Decision Making <KAROLINA Vu - Last Filed: 03/13/25 21:13> Medical Records Medical records reviewed: Yes I reviewed the patient's medical records. Screening: Per USPSTF and CDC recommendations, given the prevalence of disease in our region, it is our hospital?s policy to screen for HIV and viral Hepatitis for all patients aged 18 and over and those with ongoing risk factors. Micheal Inquiry Pt receiving controlled substance: No Micheal was queried for this patient: No Vital Signs: 03/13/25 18:01 03/13/25 18:13 03/13/25 18:13 Temperature 99.3 F 99.3 F Temperature Source Oral Oral Pulse Rate 97 H 98 H Pulse Rate [Right] 98 H Respiratory Rate 18 18 Blood Pressure 146/76 H 186/85 H Blood Pressure [Right Arm] 186/85 H Blood Pressure Mean [Right Arm] 118 Blood Pressure Source Automatic Cuff Blood Pressure Source [Right Arm] Automatic Cuff Blood Pressure Position Supine Blood Pressure Position [Right Arm] Supine 02 Sat by Pulse Oximetry 95 94 L 94 L Oxygen Delivery Method Room Air Room Air Room Air Oxygen Flow Rate (LPM) 03/13/25 18:30 03/13/25 19:00 03/13/25 20:01 Temperature Temperature Source Pulse Rate 93 H 93 H 96 H Pulse Rate [Right] Respiratory Rate Blood Pressure 163/85 H 172/85 H 161/96 H Blood Pressure [Right Arm] Blood Pressure Mean [Right Arm] Blood Pressure Source Blood Pressure Source [Right Arm] Blood Pressure Position Blood Pressure Position [Right Arm] 02 Sat by Pulse Oximetry 95 95 92 L Oxygen Delivery Method Room Air Room Air Oxygen Flow Rate (LPM) 03/13/25 20:40 03/13/25 20:57 03/13/25 21:00 Temperature Temperature Source Pulse Rate 89 97 H Pulse Rate [Right] 97 H Respiratory Rate Blood Pressure 165/84 H 153/80 H Blood Pressure [Right Arm] Blood Pressure Mean [Right Arm] Blood Pressure Source Blood Pressure Source [Right Arm] Blood Pressure Position Blood Pressure Position [Right Arm] 02 Sat by Pulse Oximetry 95 97 97 Oxygen Delivery Method Room Air Nasal Cannula Oxygen Flow Rate (LPM) 2 03/13/25 21:10 Temperature 98.1 F Temperature Source Pulse Rate 97 H Pulse Rate [Right] Respiratory Rate 20 Blood Pressure 153/80 H Blood Pressure [Right Arm] Blood Pressure Mean [Right Arm] Blood Pressure Source Blood Pressure Source [Right Arm] Blood Pressure Position Blood Pressure Position [Right Arm] 02 Sat by Pulse Oximetry Oxygen Delivery Method Room Air Oxygen Flow Rate (LPM) Lab Data Lab results reviewed: Yes I reviewed the patient's lab results. Lab Results 03/13/25 18:40: WBC 13.1 H, RBC 3.70 L, Hgb 12.8, Hct 37.9, MCV 102.4 H, MCH 34.6 H, MCHC 33.8, RDW 14.3, Plt Count 267, MPV 10.3, Neut % (Auto) 74.7, Lymph % (Auto) 8.1 L, [facility] % (Auto) 8.6, Eos % (Auto) 7.0, Baso % (Auto) 0.5, Neut # (Auto) 9.8 H, Lymph # (Auto) 1.1, [facility] # (Auto) 1.1 H, Eos # (Auto) 0.9 H, Baso # (Auto) 0.1, VBG pH 7.37, VBG pCO2 42.7, VBG pO2 30.6, VBG HCO3 24.4, VBG Total CO2 25.7, VBG O2 Saturation 58.8, VBG Base Excess -0.9, VBG Lactic Acid 3.1 H, Sodium 135 L, Potassium 4.8, Chloride 97 L, Carbon Dioxide 25, Anion Gap 17.8 H, BUN 29 H, Creatinine 1.20 H, Estimated Creat Clear 49, Estimated GFR 45 L, Est GFR ( Amer) 54 L, Glucose 183 H, Calcium 10.9 H, Magnesium 1.4 L, Total Bilirubin 0.6, AST 26, ALT 23, Alkaline Phosphatase 90, NT-Pro-B Natriuret Pep 900 H, Total Protein 8.2 D, Albumin 4.7, Globulin 3.5 H, Albumin/Globulin Ratio 1.3, Lipase 45 03/13/25 19:12: Lactate 2.2 H 03/13/25 19:28: Urine Color Yellow, Urine Appearance Sl cloudy, Urine pH 6.0, Ur Specific Sandwich 1.010, Urine Protein Trace, Urine Glucose (UA) Negative, Urine Ketones Negative, Urine Blood Trace-l, Urine Nitrate Positive A, Urine Bilirubin Negative, Urine Urobilinogen 0.2, Ur Leukocyte Esterase 1+ A, Urine RBC 3-5, Urine WBC Tntc, Ur Squamous Epith Cells 20-50, Urine Bacteria 4+ 03/14/25 07:20 03/14/25 07:20 Orders (Tests/Meds): ED MEDICATIONS Generic Name Dose Route Start Last Admin Trade Name Freq PRN Reason Stop Dose Admin Acetaminophen 650 mg 03/13/25 20:16 Acetaminophen 325mg Tab PO 04/12/25 20:15 Q4HP PRN Fever or Mild Pain (1-3) Al Hydrox/Mg Hydrox/Simethicone 30 ml 03/13/25 20:16 03/14/25 12:03 Aluminum/Magnesium/Simethicone 30ml Udc PO 04/12/25 20:15 30 ml QIDP PRN Administration Dyspepsia Albuterol/Ipratropium 3 ml 03/14/25 08:26 03/14/25 08:41 Ipratropium/Albuterol 3 Ml Neb IH 04/13/25 08:25 3 ml Q6HP PRN Administration Shortness Of Breath Allopurinol 200 mg 03/15/25 09:00 Allopurinol 100mg Tablet PO 04/14/25 08:59 DAILY GREG Aspirin 81 mg 03/15/25 09:00 Aspirin Ec 81mg Tablet PO 04/14/25 08:59 DAILY GREG Atenolol 25 mg 03/15/25 09:00 Atenolol 25mg Tablet PO 04/14/25 08:59 DAILY [facility] Bumetanide 1 mg 03/15/25 09:00 Bumetanide 1 Mg Tablet PO 04/14/25 08:59 BIDL [facility] Clopidogrel Bisulfate 75 mg 03/15/25 09:00 Clopidogrel 75mg Tab PO 04/14/25 08:59 DAILY [facility] Enoxaparin Sodium 40 mg 03/14/25 09:00 03/14/25 08:23 Enoxaparin 40mg/0.4ml Syringe SUBCUT 04/13/25 08:59 40 mg DAILY GREG Administration Escitalopram Oxalate 5 mg 03/15/25 09:00 Escitalopram 10mg Tablet PO 04/14/25 08:59 DAILY [facility] Gabapentin 600 mg 03/14/25 21:00 Gabapentin 300mg Capsule PO 04/13/25 20:59 BID [facility] Meropenem 1 gm/ Sodium 100 mls @ 100 mls/hr 03/14/25 10:15 03/14/25 11:00 Chloride IV 03/24/25 10:14 100 mls/hr Q8H GREG Administration Insulin Human Lispro 0 unit 03/13/25 21:00 03/14/25 11:46 Humalog 100 Units/Ml 10ml Vial (Ssi) SUBCUT 04/12/25 20:59 2 unit ACHS GREG Administration Protocol Ondansetron HCl 4 mg 03/13/25 20:16 03/14/25 11:15 Ondansetron 4mg/2ml Vial IV 04/12/25 20:15 4 mg Q8HP PRN Administration Nausea Prochlorperazine Maleate 10 mg 03/14/25 15:00 Prochlorperazine 10mg Tablet PO 04/13/25 14:59 Q6HP PRN Nausea And Vomiting Discontinued Medications Generic Name Dose Route Start Last Admin Trade Name Freq PRN Reason Stop Dose Admin Azithromycin 500 mg 03/14/25 00:15 03/14/25 00:51 Azithromycin 250mg Tablet PO 03/14/25 00:16 500 mg ONCE ONE Administration Azithromycin 250 mg 03/14/25 09:00 03/14/25 08:23 Azithromycin 250mg Tablet PO 03/24/25 08:59 250 mg DAILY GREG Administration Ceftriaxone Sodium 1 gm/ 50 mls @ 100 mls/hr 03/13/25 19:36 03/13/25 19:49 Sodium Chloride IV 03/13/25 20:05 100 mls/hr ONCE ONE Administration Sodium Chloride 1,000 mls @ 500 mls/hr 03/13/25 20:06 03/13/25 20:14 Sod Chlor 0.9% 1000ml Bag IV 03/13/25 22:05 500 mls/hr .Q2H ONE Administration Magnesium Sulfate 2 gm in 50 mls @ 50 mls/hr 03/13/25 22:15 03/14/25 00:32 Magnesium Sulfate 2gm/50ml Premix IV 03/14/25 01:14 50 mls/hr Q1H GREG Administration Levalbuterol HCl 0.63 mg 03/13/25 22:22 03/14/25 03:12 Levalbuterol 0.63mg/3ml Neb IH 04/12/25 22:21 0.63 mg TIDP PRN Administration Shortness Of Breath ORDERS Category Date Time Status CT head/brain wo con Stat Cat Scan 03/13/25 18:14 Completed XR chest portable Stat Exams 03/13/25 18:14 Completed Basic Metabolic Panel AMLAB Lab 03/14/25 07:20 Completed Complete Blood Count Auto Diff AMLAB Lab 03/14/25 07:20 Completed Complete Blood Count Auto Diff Stat Lab 03/13/25 18:40 Completed Comprehensive Metabolic Panel Stat Lab 03/13/25 18:40 Completed Lactic Acid Stat Lab 03/13/25 19:12 Completed Lipase Stat Lab 03/13/25 18:40 Completed Magnesium Stat Lab 03/13/25 18:40 Completed NT Pro Brain Natriuretic Pep. Stat Lab 03/13/25 18:40 Completed Urinalysis and Microscopic Stat Lab 03/13/25 19:28 Completed Blood Culture Stat Micro 03/13/25 18:48 Received Urine Culture Stat Micro 03/13/25 19:28 Results VBG [Venous Blood Gas] Stat RT 03/13/25 18:40 Completed Medical Decision Narrative: 69-year-old female presents emergency department with malaise and altered mental status, concern for UTI, differential diagnose include but not limited to, uremic encephalopathy, encephalopathy, metabolic cephalopathy, acute on chronic hypoxic respiratory failure, acute UTI, acute pyelonephritis, pneumonia, medication side effect, cardiac arrhythmia, electrolyte disturbance. I discussed patient case with inpatient Will obtain basic laboratory studies, CT head, EKG, CXR, lactic acid level, lipase level, magnesium level proBNP, urinalysis, VBG. CBC notable for mild leukocytosis at 13.1, MCV is mildly evaded at 102.4, is chronic. CMP is notable for elevated BUN of 29, creatinine elevation 1.2, calcium at 10.9, hypomagnesia 1.4 lipase in normal limits.\ VBG notable for elevated venous lactic at 3.1. I reviewed the patient's CT head without contrast along the corresponding radiologic report, no acute intracranial process, intracranial hemorrhage or mass effect no gross change from prior imaging. proBNP is mildly elevated at 900. I reviewed the patient's chest x-ray along the corresponding radiologic report, questionable mild alveolar opacities right lung base which could be due to atelectasis or early pneumonia, consider radiographic follow-up as clinical indicated, left apical mass and lateral right upper lobe nodular densities are grossly open prior CT, mild apical emphysematous changes and fibrosis. Lactic acid is minimally elevated at 2.2. UA is notable for positive nitrites and leukocyte esterase. Will give 1 g IV ceftriaxone, and will treat for sepsis not present on arrival, with now multiple sources of infection, being UTI/pneumonia, will obtain blood cultures, but at this time will hold off on weight-based IV fluid bolus with history of HFpEF, and elevated proBNP, will give 500 mL IV NS. I discussed need for admission with the patient and family the bedside, patient and patient family agree with current treatment plan/admission plan for UTI/possible early pneumonia with altered mental status. I discussed this patient's case with the hospitalist provider Rachel Mojica APRN at approximately 7:58 PM, she is agree with current admission plan/treatment plan. Was notified by nursing staff approximately 8:45 PM that the patient went to use the restroom, and her oxygen saturation dropped to around 88 to 89%, patient does have a history of COPD, thus will place on 2 L nasal cannula for comfort. <Chuck Moeller MD - Last Filed: 03/14/25 15:14> Vital Signs: 03/13/25 18:01 03/13/25 18:13 03/13/25 18:13 Temperature 99.3 F 99.3 F Temperature Source Oral Oral Pulse Rate 97 H 98 H Pulse Rate [Right] 98 H Respiratory Rate 18 18 Blood Pressure 146/76 H 186/85 H Blood Pressure [Right Arm] 186/85 H Blood Pressure Mean [Right Arm] 118 Blood Pressure Source Automatic Cuff Blood Pressure Source [Right Arm] Automatic Cuff Blood Pressure Position Supine Blood Pressure Position [Right Arm] Supine 02 Sat by Pulse Oximetry 95 94 L 94 L Oxygen Delivery Method Room Air Room Air Room Air Oxygen Flow Rate (LPM) 03/13/25 18:30 03/13/25 19:00 03/13/25 20:01 Temperature Temperature Source Pulse Rate 93 H 93 H 96 H Pulse Rate [Right] Respiratory Rate Blood Pressure 163/85 H 172/85 H 161/96 H Blood Pressure [Right Arm] Blood Pressure Mean [Right Arm] Blood Pressure Source Blood Pressure Source [Right Arm] Blood Pressure Position Blood Pressure Position [Right Arm] 02 Sat by Pulse Oximetry 95 95 92 L Oxygen Delivery Method Room Air Room Air Oxygen Flow Rate (LPM) 03/13/25 20:40 03/13/25 20:57 03/13/25 21:00 Temperature Temperature Source Pulse Rate 89 97 H Pulse Rate [Right] 97 H Respiratory Rate Blood Pressure 165/84 H 153/80 H Blood Pressure [Right Arm] Blood Pressure Mean [Right Arm] Blood Pressure Source Blood Pressure Source [Right Arm] Blood Pressure Position Blood Pressure Position [Right Arm] 02 Sat by Pulse Oximetry 95 97 97 Oxygen Delivery Method Room Air Nasal Cannula Oxygen Flow Rate (LPM) 2 03/13/25 21:10 Temperature 98.1 F Temperature Source Pulse Rate 97 H Pulse Rate [Right] Respiratory Rate 20 Blood Pressure 153/80 H Blood Pressure [Right Arm] Blood Pressure Mean [Right Arm] Blood Pressure Source Blood Pressure Source [Right Arm] Blood Pressure Position Blood Pressure Position [Right Arm] 02 Sat by Pulse Oximetry Oxygen Delivery Method Room Air Oxygen Flow Rate (LPM) Lab Data Lab Results 03/13/25 18:40: WBC 13.1 H, RBC 3.70 L, Hgb 12.8, Hct 37.9, MCV 102.4 H, MCH 34.6 H, MCHC 33.8, RDW 14.3, Plt Count 267, MPV 10.3, Neut % (Auto) 74.7, Lymph % (Auto) 8.1 L, [facility] % (Auto) 8.6, Eos % (Auto) 7.0, Baso % (Auto) 0.5, Neut # (Auto) 9.8 H, Lymph # (Auto) 1.1, [facility] # (Auto) 1.1 H, Eos # (Auto) 0.9 H, Baso # (Auto) 0.1, VBG pH 7.37, VBG pCO2 42.7, VBG pO2 30.6, VBG HCO3 24.4, VBG Total CO2 25.7, VBG O2 Saturation 58.8, VBG Base Excess -0.9, VBG Lactic Acid 3.1 H, Sodium 135 L, Potassium 4.8, Chloride 97 L, Carbon Dioxide 25, Anion Gap 17.8 H, BUN 29 H, Creatinine 1.20 H, Estimated Creat Clear 49, Estimated GFR 45 L, Est GFR ( Amer) 54 L, Glucose 183 H, Calcium 10.9 H, Magnesium 1.4 L, Total Bilirubin 0.6, AST 26, ALT 23, Alkaline Phosphatase 90, NT-Pro-B Natriuret Pep 900 H, Total Protein 8.2 D, Albumin 4.7, Globulin 3.5 H, Albumin/Globulin Ratio 1.3, Lipase 45 03/13/25 19:12: Lactate 2.2 H 03/13/25 19:28: Urine Color Yellow, Urine Appearance Sl cloudy, Urine pH 6.0, Ur Specific Sandwich 1.010, Urine Protein Trace, Urine Glucose (UA) Negative, Urine Ketones Negative, Urine Blood Trace-l, Urine Nitrate Positive A, Urine Bilirubin Negative, Urine Urobilinogen 0.2, Ur Leukocyte Esterase 1+ A, Urine RBC 3-5, Urine WBC Tntc, Ur Squamous Epith Cells 20-50, Urine Bacteria 4+ Orders (Tests/Meds): ED MEDICATIONS Generic Name Dose Route Start Last Admin Trade Name Freq PRN Reason Stop Dose Admin Acetaminophen 650 mg 03/13/25 20:16 Acetaminophen 325mg Tab PO 04/12/25 20:15 Q4HP PRN Fever or Mild Pain (1-3) Al Hydrox/Mg Hydrox/Simethicone 30 ml 03/13/25 20:16 03/14/25 12:03 Aluminum/Magnesium/Simethicone 30ml Udc PO 04/12/25 20:15 30 ml QIDP PRN Administration Dyspepsia Albuterol/Ipratropium 3 ml 03/14/25 08:26 03/14/25 08:41 Ipratropium/Albuterol 3 Ml Neb IH 04/13/25 08:25 3 ml Q6HP PRN Administration Shortness Of Breath Allopurinol 200 mg 03/15/25 09:00 Allopurinol 100mg Tablet PO 04/14/25 08:59 DAILY GREG Aspirin 81 mg 03/15/25 09:00 Aspirin Ec 81mg Tablet PO 04/14/25 08:59 DAILY GREG Atenolol 25 mg 03/15/25 09:00 Atenolol 25mg Tablet PO 04/14/25 08:59 DAILY [facility] Bumetanide 1 mg 03/15/25 09:00 Bumetanide 1 Mg Tablet PO 04/14/25 08:59 BIDL [facility] Clopidogrel Bisulfate 75 mg 03/15/25 09:00 Clopidogrel 75mg Tab PO 04/14/25 08:59 DAILY [facility] Enoxaparin Sodium 40 mg 03/14/25 09:00 03/14/25 08:23 Enoxaparin 40mg/0.4ml Syringe SUBCUT 04/13/25 08:59 40 mg DAILY GREG Administration Escitalopram Oxalate 5 mg 03/15/25 09:00 Escitalopram 10mg Tablet PO 04/14/25 08:59 DAILY [facility] Gabapentin 600 mg 03/14/25 21:00 Gabapentin 300mg Capsule PO 04/13/25 20:59 BID GREG Meropenem 1 gm/ Sodium 100 mls @ 100 mls/hr 03/14/25 10:15 03/14/25 11:00 Chloride IV 03/24/25 10:14 100 mls/hr Q8H GREG Administration Insulin Human Lispro 0 unit 03/13/25 21:00 03/14/25 11:46 Humalog 100 Units/Ml 10ml Vial (Ssi) SUBCUT 04/12/25 20:59 2 unit ACHS GREG Administration Protocol Ondansetron HCl 4 mg 03/13/25 20:16 03/14/25 11:15 Ondansetron 4mg/2ml Vial IV 04/12/25 20:15 4 mg Q8HP PRN Administration Nausea Prochlorperazine Maleate 10 mg 03/14/25 15:00 Prochlorperazine 10mg Tablet PO 04/13/25 14:59 Q6HP PRN Nausea And Vomiting Discontinued Medications Generic Name Dose Route Start Last Admin Trade Name Kassy PRN Reason Stop Dose Admin Azithromycin 500 mg 03/14/25 00:15 03/14/25 00:51 Azithromycin 250mg Tablet PO 03/14/25 00:16 500 mg ONCE ONE Administration Azithromycin 250 mg 03/14/25 09:00 03/14/25 08:23 Azithromycin 250mg Tablet PO 03/24/25 08:59 250 mg DAILY GREG Administration Ceftriaxone Sodium 1 gm/ 50 mls @ 100 mls/hr 03/13/25 19:36 03/13/25 19:49 Sodium Chloride IV 03/13/25 20:05 100 mls/hr ONCE ONE Administration Sodium Chloride 1,000 mls @ 500 mls/hr 03/13/25 20:06 03/13/25 20:14 Sod Chlor 0.9% 1000ml Bag IV 03/13/25 22:05 500 mls/hr .Q2H ONE Administration Magnesium Sulfate 2 gm in 50 mls @ 50 mls/hr 03/13/25 22:15 03/14/25 00:32 Magnesium Sulfate 2gm/50ml Premix IV 03/14/25 01:14 50 mls/hr Q1H GREG Administration Levalbuterol HCl 0.63 mg 03/13/25 22:22 03/14/25 03:12 Levalbuterol 0.63mg/3ml Neb IH 04/12/25 22:21 0.63 mg TIDP PRN Administration Shortness Of Breath ORDERS Category Date Time Status CT head/brain wo con Stat Cat Scan 03/13/25 18:14 Completed XR chest portable Stat Exams 03/13/25 18:14 Completed Basic Metabolic Panel AMLAB Lab 03/14/25 07:20 Completed Complete Blood Count Auto Diff AMLAB Lab 03/14/25 07:20 Completed Complete Blood Count Auto Diff Stat Lab 03/13/25 18:40 Completed Comprehensive Metabolic Panel Stat Lab 03/13/25 18:40 Completed Lactic Acid Stat Lab 03/13/25 19:12 Completed Lipase Stat Lab 03/13/25 18:40 Completed Magnesium Stat Lab 03/13/25 18:40 Completed NT Pro Brain Natriuretic Pep. Stat Lab 03/13/25 18:40 Completed Urinalysis and Microscopic Stat Lab 03/13/25 19:28 Completed Blood Culture Stat Micro 03/13/25 18:48 Received Urine Culture Stat Micro 03/13/25 19:28 Results VBG [Venous Blood Gas] Stat RT 03/13/25 18:40 Completed ECG Data Tracing #1: I reviewed this ECG and interpreted as documented below: (Sinus rhythm 93 bpm with NH 166, QRS 86, QTc 410. Normal axis, no acute ischemic change, but evidence of old ischemic change with Q waves) Medical Decision Narrative: 69-year-old female presents emergency department with malaise and altered mental status, concern for UTI, differential diagnose include but not limited to, uremic encephalopathy, encephalopathy, metabolic cephalopathy, acute on chronic hypoxic respiratory failure, acute UTI, acute pyelonephritis, pneumonia, medication side effect, cardiac arrhythmia, electrolyte disturbance. I discussed patient case with inpatient Will obtain basic laboratory studies, CT head, EKG, CXR, lactic acid level, lipase level, magnesium level proBNP, urinalysis, VBG. CBC notable for mild leukocytosis at 13.1, MCV is mildly evaded at 102.4, is chronic. CMP is notable for elevated BUN of 29, creatinine elevation 1.2, calcium at 10.9, hypomagnesia 1.4 lipase in normal limits.\ VBG notable for elevated venous lactic at 3.1. I reviewed the patient's CT head without contrast along the corresponding radiologic report, no acute intracranial process, intracranial hemorrhage or mass effect no gross change from prior imaging. proBNP is mildly elevated at 900. I reviewed the patient's chest x-ray along the corresponding radiologic report, questionable mild alveolar opacities right lung base which could be due to atelectasis or early pneumonia, consider radiographic follow-up as clinical indicated, left apical mass and lateral right upper lobe nodular densities are grossly open prior CT, mild apical emphysematous changes and fibrosis. Lactic acid is minimally elevated at 2.2. UA is notable for positive nitrites and leukocyte esterase. Will give 1 g IV ceftriaxone, and will treat for sepsis not present on arrival, with now multiple sources of infection, being UTI/pneumonia, will obtain blood cultures, but at this time will hold off on weight-based IV fluid bolus with history of HFpEF, and elevated proBNP, will give 500 mL IV NS. I discussed need for admission with the patient and family the bedside, patient and patient family agree with current treatment plan/admission plan for UTI/possible early pneumonia with altered mental status. I discussed this patient's case with the hospitalist provider Rachel Mojica APRN at approximately 7:58 PM, she is agree with current admission plan/treatment plan. Was notified by nursing staff approximately 8:45 PM that the patient went to use the restroom, and her oxygen saturation dropped to around 88 to 89%, patient does have a history of COPD, thus will place on 2 L nasal cannula for comfort. I was consulted by the [facility], and we discussed the complexity of the problems being addressed. I approved the treatment and management plan for this patient's care in the Emergency Department, thus performing a substantive portion of the medical decision making. Chuck Moeller MD Critical Care <KAROLINA Vu - Last Filed: 03/13/25 21:13> Critical Care Time Critical Care Time: No
--- NOTE | 2025-03-13 18:21 | PC.NURSE ---
Pt was taken to radiology
--- NOTE | 2025-03-13 18:28 | PC.NURSE ---
Pt is back from radiology
--- NOTE | 2025-03-13 18:32 | ECG_ITS ---
APPROVED REPORT Exam: Resting ECG HR:93 bpm ECG Measurements Heart Rate 93 AXES ME 166 P 85 QRSd 86 QRS 46 QT 360 T 77 QTc 410 Conclusion Sinus rhythm No STEMI Old ischemic change Electronically signed by : MARINA GUNDERSON, 03/13/2025 23:00:11
[2025-03-13 18:53] LABS: Basophils # 0.1 K/mm3 (0-0.2); Basophils % 0.5 % (0.1-2.0); Eosinophils # 0.9 Kmm3 (0.0-0.4); Hematocrit 37.9 % (37.0-47.0); Hemoglobin 12.8 g/dL (12.2-16.2); Immature Granulocytes # 0.14 10^3uL; Immature Granulocytes % 1.1 %; Lymphocytes # 1.1 K/mm3 (0.7-4.5); Lymphocytes % 8.1 % (10-50); Mean Corpuscular HGB Conc 33.8 g/dL (31.8-35.4); Mean Corpuscular Hemoglobin 34.6 pg (27.0-31.2); Mean Corpuscular Volume 102.4 fl (81-99); Mean Platelet Volume 10.3 fl (7.4-10.4); Monocytes # 1.1 K/mm3 (0.1-1.0); Monocytes % 8.6 % (1.7-9.3); Neutrophils # 9.8 K/mm3 (1.8-7.8); Neutrophils % 74.7 % (37.0-80.0); Nucleated Red Blood Cells # 0 10^3/uL; Nucleated Red Blood Cells % 0 %; Platelet Count 267 K/mm3 (142-424); Red Cell Distribution Width 14.3 % (11.5-17.5); Red Cell Distribution Width-SD 53.5 fL; White Blood Count 13.1 K/mm3 (4.8-10.8)
[2025-03-13 19:00] LABS: Alanine Aminotransferase 23 U/L (12-78); Albumin Level 4.7 g/dl (3.5-5.0); Albumin/Globulin Ratio 1.3 (1.1-1.8); Alkaline Phosphatase 90 U/L (38-126); Anion Gap 17.8 mEq/L (5-15); Aspartate Amino Transferase 26 U/L (14-36); Bilirubin,Total 0.6 mg/dl (0.2-1.3); Blood Urea Nitrogen 29 mg/dl (7-17); Calcium 10.9 mg/dl (8.4-10.2); Carbon Dioxide 25 mmol/L (22.0-30.0); Chloride 97 mmol/L (98-107); Creatinine Clearance Estimated 49 mL/min (50-200); Estimated Glomerular Filt Rate 45 ml/min (>60); GFR (African American) 54 ML/MIN (>60); Globulin 3.5 g/dL (1.3-3.2); Glucose 183 mg/dl (74-100); Lipase 45 U/L (23-300); Magnesium 1.4 mg/dl (1.6-2.3); Potassium 4.8 mmoL/L (3.5-5.1); Sodium 135 mmol/L (136-145); Total Protein,Serum 8.2 g/dl (6.3-8.2)
[2025-03-13 19:01] LABS: Lactate Venous 3.1 mmol/L (0.4-2.0); VBG Base Excess -0.9 mmol/L (-2.4-2.3); VBG HCO3 24.4 mmol/L (23-30); VBG Oxygen Saturation 58.8 % (50-70); VBG PCO2 42.7 mmol/L (35-51); VBG PH 7.37 mmol/L (7.31-7.41); VBG PO2 30.6 mmol/L (28-40); VBG Total CO2 25.7 mmol/L (23-27)
[2025-03-13 19:09] LABS: NT Pro Brain Natriuretic Pep. 900 pg/mL (0-125)
[2025-03-13 19:29] LABS: Lactic Acid 2.2 mmol/L (0.7-2.1)
[2025-03-13 19:40] LABS: Microscopic, Urine URINE MICROSCOPIC (MICROSCOPIC)
[2025-03-13 19:42] LABS: Appearance,Urine SL CLOUDY (Clear); Bilirubin,Urine Negative (Negative); Blood, Urine TRACE-L (Negative); Color,Urine YELLOW (Yellow); Glucose,Urine (UA) Negative (Negative); Ketones,Urine Negative (Negative); Leukocyte Esterase,Urine 1+ (Negative); Nitrate,Urine POSITIVE (Negative); Protein,Urine TRACE (Negative); Urobilinogen,Urine 0.2 EU/dl (0.2)
[2025-03-13] MEDS: CEFTRIAXONE SODIUM 1 GM in 0.9 % SODIUM CHLORIDE 50 ML IV (19:49)
[2025-03-13 20:03] LABS: Bacteria,Urine 4+ /lpf; Squamous Epithelial Cell,Urine 20-50 #/hpf (0-5); WBC,Urine TNTC #/hpf (0-3)
[2025-03-13] MEDS: 0.9 % SODIUM CHLORIDE 1000ML 1,000 ML 500 ML IV (20:14)
--- NOTE | 2025-03-13 21:18 | PC.NURSE ---
pt arrived to floor from er at this time
[2025-03-13] MEDS: humaLOG 100 UNITS/ML 10ML VIAL (SSI) SUBCUT (22:01)
[2025-03-13 22:03] LABS: POC Glucose,Bedside 224 (70-110)
[2025-03-13] MEDS: MAGNESIUM SULFATE IN WATER 2 GM/50 ML PIGGYBACK IV ×2 (22:21→23:23)
--- NOTE | 2025-03-13 22:23 | P.HP_ITS ---
<Statement entered by Louie Barbour MD - 03/14/25 15:10> Rounded on patient after nurse practitioner. Personally examined and interviewed patient. Agree with exam findings and care plan as documented. History of Present Illness *Admission Date: 03/13/25 *Reason for visit:: Shortness of breath *History of present illness: Ms. Rivers is a 69-year-old female who states she presented to the ER for complaints of shortness of breath. ER reports that patient presented for evaluation of altered mental status and feeling unwell. Family reported that patient was confused and when this happens patient usually has a urinary tract infection. Patient has a past medical history of overactive bladder, fibromyalgia, COPD, CHF, HFpEF, pulmonary hypertension, type 2 diabetes mellitus, PAD, hyperlipidemia, and CAD. Patient reports shortness of breath started 2 days ago. She also reports fever but does not know what her temperature was. She denies urinary frequency, urgency, dysuria, or hematuria. She is a current 1 pack a day smoker and has history of lung cancer on the Keytruda. Patient reports she is on 2 L of supplemental oxygen at home. Patient denies chills, cough, congestion, runny nose, chest pain, nausea, vomiting, diarrhea, constipation, headache, lightheadedness, dizziness, or syncope. [facility] Disclaimer: The information contained in this section may have been updated after the patient was seen, as this information can be updated by other users. Medical History Pre-op evaluation Pulmonary fungal infection Gout Smoking greater than 30 pack years COPD mixed type Multiple lung nodules on CT Fungal pneumonia Acute and chronic respiratory failure with hypoxia Intertrochanteric fracture of left hip Status post cephalomedullary nailing Closed left hip fracture Acute respiratory failure with hypoxia Pneumonia due to COVID-19 virus Diabetes mellitus Diastolic dysfunction HLD (hyperlipidemia) HTN (hypertension) Subclavian artery stenosis, left PAD (peripheral artery disease) Tobacco use History of placement of stent in LAD coronary artery CAD (coronary artery disease) APR 2022-Severe ostial mid left main disease as described Successful stenting of the ostial proximal mid distal left main artery reducing the stenosis to less than 10% giving excellent angiograph results Preserved ejection fraction Normal left ventricular end-diastolic pressure Persistent stenosis in a large posterior lateral branch which is best managed medically COPD (chronic obstructive pulmonary disease) ACUÑA (dyspnea on exertion) Surgical History History of hysterectomy History of hip surgery Hx of right coronary artery stent placement Family History Other Asthma Cancer Diabetes Hypertension Social History (Updated 03/13/25 @ 21:52 by Larissa Alarcon RN) Smoking Status: Current every day smoker tobacco type: cigarettes packs per day: 1 second hand exposure: No alcohol intake: never substance use type: denies use current occupational status: disabled Travel in the last 8 weeks?: None household members: none housing: house current occupational exposures/hazards: No caffeine: Yes Have you lived/traveled outside [place] in past 30 days?: No Contact w/someone who lives/traveled outside [place] past 30 days?: No Exposure to someone with infectious disease in past 14 days?: No Do you have a fever (greater than 100.4 F or 38 C)?: No Have you tested positive for COVID-19?: No Exposed to someone with COVID-19 in past 14 days?: No Do you have a sore throat?: No Do you have a cough?: No Do you have any weakness?: No Are you experiencing any nausea/vomitting?: No Do you have any diarrhea?: No Are you experiencing any unusual bleeding?: No Do you have any muscle aches/pain?: No Do you have any abdominal pain?: No Are you experiencing loss of taste or smell?: No Other Medical History Have you received the Flu Vaccine for this season: Yes Have you received the Pneumonia Vaccine: Yes Review of Systems Constitutional Constitutional: Denies chills, Reports fever(s) and Denies headache(s) ENT Ears, Nose, Mouth, and Throat: Denies dizziness and Denies headache(s) *Cardiovascular Cardiovascular: Denies chest pain and Reports dyspnea *Respiratory Respiratory: Denies cough and Reports dyspnea *Gastrointestinal Gastrointestinal: Denies abdominal pain, Denies constipation, Denies nausea and Denies vomiting *Genitourinary Genitourinary: Denies hematuria, Denies urinary hesitancy and Denies urinary urgency *Musculoskeletal Musculoskeletal: Reports system reviewed and no additional complaints, except as documented *Neurologic Neurologic: Denies dizziness and Denies headache(s) Allergic/Immunologic Allergic/Immunologic: Denies seasonal rhinorrhea Meds Home Medications and Allergies Home Medications ?Medication ?Instructions ?Recorded ?Confirmed ?Type atorvastatin 20 mg tablet 20 mg PO HS 90 days ##90 06/0403/14/25 History cetirizine 10 mg tablet 10 mg PO DAILY Allergy sympt oms 30 10/26/17 03/14/25 History days ##30 clopidogrel 75 mg tablet 75 mg PO DAILY 90 days ##90 10/26/17 03/14/25 History metformin 1,000 mg tablet 1,000 mg PO BIDWMEAL 90 days ##180 10/26/17 03/14/25 History aspirin 81 mg tablet,delayed 81 mg PO DAILY 05/06/18 0 03/14/25 History release atenolol 25 mg tablet 25 mg PO DAILY 06/03/2002/16 History escitalopram oxalate 5 mg tablet 5 mg PO DAILY 0 03/14/25 History ipratropium 0.5 mg-albuterol 3 mg 3 ml inhalation QIDP PRN Shortness 05/03/22 03/14/25 History (2.5 mg base)/3 mL nebulization Of Breath soln allopurinol 100 mg tablet 200 mg PO DAILY 12/27/22 History bumetanide 1 mg tablet 1 mg PO BIDL Fluid 30 days # 0 tabs 12/04/23 03/14/25 Rx colchicine 0.6 mg tablet 0.6 mg PO DAILYP PRN GOUT 03/14/25 History oxybutynin chloride 10 mg 10 mg PO DAILY #90 tabs 08/1703/14/25 Rx tablet,extended release 24 hr spironolactone 50 mg tablet 50 mg PO BID Fluid 5 03/14/25 History estradiol 0.01% (0.1 mg/gram) 1 applic vaginal .TWICE WEEKLY 03/14/25 03/14/25 History vaginal cream gabapentin 300 mg capsule 600 mg PO BID 03/14/2503/14 History ondansetron 8 mg disintegrating 8 mg PO Q8HP PRN Nause a And 03/14/25 03/14/25 History tablet Vomiting prochlorperazine maleate 10 mg 10 mg PO Q6HP PRN nause a and 03/14/25 03/14/25 History tablet (Compazine) vomiting promethazine 25 mg tablet 25 mg PO TIDP PRN nausea and 03/14/25 03/14/25 History vomiting New Prescriptions to Start Prescriptions: Allergies Allergy/AdvReac Type Severity Reaction Status Date / Time Sulfa (Sulfonamide Allergy Unknown BLISTERING Verified 02/19/25 13:28 Antibiotics) OF THROAT levofloxacin (From Levaquin) Allergy BLISTERS Verified 02/19/25 13:28 IN THROAT Exam Data for Last 24 hours Vital signs and Labs for Last 24 Hours: Temp Pulse Resp BP Pulse Ox O2 Del Method O2 Flow Rate 98.4 F 102 H 14 144/76 H 96 Room Air 2 03/13/25 22:00 03/13/25 22:00 03/13/25 22:00 03/13/25 22:00 03/13/25 22:00 03/13/25 22:00 03/13/25 20:57 Laboratory Results - last 24 hr 03/13/25 18:40: WBC 13.1 H, RBC 3.70 L, Hgb 12.8, Hct 37.9, MCV 102.4 H, MCH 34.6 H, MCHC 33.8, RDW 14.3, Plt Count 267, MPV 10.3, Neut % (Auto) 74.7, Lymph % (Auto) 8.1 L, M[place]at % (Auto) 8.6, Eos % (Auto) 7.0, Baso % (Auto) 0.5, Neut # (Auto) 9.8 H, Lymph # (Auto) 1.1, Moffat # (Auto) 1.1 H, Eos # (Auto) 0.9 H, Baso # (Auto) 0.1, VBG pH 7.37, VBG pCO2 42.7, VBG pO2 30.6, VBG HCO3 24.4, VBG Total CO2 25.7, VBG O2 Saturation 58.8, VBG Base Excess -0.9, VBG Lactic Acid 3.1 H, Sodium 135 L, Potassium 4.8, Chloride 97 L, Carbon Dioxide 25, Anion Gap 17.8 H, BUN 29 H, Creatinine 1.20 H, Estimated Creat Clear 49, Estimated GFR 45 L, Est GFR ( Amer) 54 L, Glucose 183 H, Calcium 10.9 H, Magnesium 1.4 L, Total Bilirubin 0.6, AST 26, ALT 23, Alkaline Phosphatase 90, NT-Pro-B Natriuret Pep 900 H, Total Protein 8.2 D, Albumin 4.7, Globulin 3.5 H, Albumin/Globulin Ratio 1.3, Lipase 45 03/13/25 19:12: Lactate 2.2 H 03/13/25 19:28: Urine Color Yellow, Urine Appearance Sl cloudy, Urine pH 6.0, Ur Specific [place] 1.010, Urine Protein Trace, Urine Glucose (UA) Negative, Urine Ketones Negative, Urine Blood Trace-l, Urine Nitrate Positive A, Urine Bilirubin Negative, Urine Urobilinogen 0.2, Ur Leukocyte Esterase 1+ A, Urine RBC 3-5, Urine WBC Tntc, Ur Squamous Epith Cells 20-50, Urine Bacteria 4+ 03/13/25 21:42: POC Glucose 224 H I & O for Last 24 hours: Intake & Output 03/10/25 03/11/25 03/12/25 03/13/25 23:59 23:59 23:59 23:59 Output Total 200 / 200 Balance -200 / -200 Weight 73.89 kg *Routine HEENT Exam Head: Present normocephalic and atraumatic Eye: Present EOMI and PERRL ENT: Present mucous membranes moist and oropharynx clear *Routine Neck Exam Neck: Present supple and full ROM *Routine Respiratory Exam Respiratory: Present wheezes (Inspiratory and expiratory bilaterally) and symmetric chest movement; Absent accessory muscle use or respiratory distress *Routine Cardiovascular Exam Cardiovascular: Present RRR, Normal S1 and Normal S2 *Routine Abdominal Exam Abdominal: Present soft and normoactive bowel sounds; Absent tenderness *Routine Rectal Exam Rectal:: deferred *Routine Genitalia Exam Genitalia:: deferred *Routine Extremities Exam Extremities: Present full ROM; Absent edema *Routine Skin Exam Skin: Present intact, dry and warm *Routine Neurological Exam Neurological: Present alert, oriented X3 and CN II-XII intact Assessment and Plan *Assessment and plan (1) Altered mental status: Status: Acute Category: Medical Code(s): R41.82 - Altered mental status, unspecified Plan: Continue IV antibiotics Blood and urine cultures pending, follow results and adjust antibiotics if indicated (2) UTI (urinary tract infection): Status: Acute Category: Medical Code(s): N39.0 - Urinary tract infection, site not specified Plan: Rocephin 1 g daily Follow urine culture and adjust antibiotics if indicated (3) Pneumonia with cavity of lung: Status: Acute Category: Medical Code(s): J18.9 - Pneumonia, unspecified organism; J98.4 - Other disorders of lung Plan: Rocephin 1 g daily Azithromycin 500 now and 250 daily (4) Hypomagnesemia: Status: Resolved Category: Medical Code(s): E83.42 - Hypomagnesemia Plan: Repeat in a.m. Replace (5) Diabetes mellitus: Status: Acute Qualifiers: Diabetes mellitus complication status: with other specified complication Diabetes mellitus intermediate accountant insulin use: without intermediate accountant use Diabetes mellitus type: type 2 Qualified Code(s): E11.69 - Type 2 diabetes mellitus with other specified complication Category: Medical Code(s): E11.9 - Type 2 diabetes mellitus without complications Plan: Monitor blood glucose before meals and at bedtime Sliding scale insulin ADA diet (6) COPD (chronic obstructive pulmonary disease): Status: Chronic Qualifiers: COPD type: emphysema Emphysema type: unspecified Qualified Code(s): J43.9 - Emphysema, unspecified Category: Medical Code(s): J44.9 - Chronic obstructive pulmonary disease, unspecified Plan: Xopenex 0.63 mg 3 times daily as needed for shortness of breath/wheezing Continue supplemental oxygen to maintain SpO2 88 to 92% (7) Smoking greater than 30 pack years: Status: Acute Category: Social Hx Code(s): F17.210 - Nicotine dependence, cigarettes, uncomplicated Plan: Encourage smoking cessation Declined nicotine patch Plan Case was discussed with ER physician, request admission for confusion, signs of infection, suspected UTI and need for IV antibiotics. Medicine decided to admit for further care. White count elevated at 13. Urinalysis grossly abnormal. Previous UTIs have led to confusion. Per my review of chest x-ray, has potential pneumonia versus her persistent cancer in left upper lung field. Repeat CBC, CMP, magnesium ordered for the morning. Kidney function abnormal with creatinine 1.2, consistent with JUVE above her baseline of 0.8-0.9.
[2025-03-13] MEDS: LEVALBUTEROL 0.63MG/3ML NEB 0.63 MG IH (22:41)
[2025-03-13 23:01] LABS: Reflex Lactic Add Lactic Reflex
[2025-03-13 23:40] LABS: Lactic Acid Follow Up (RFLX 1) 1.6 mmol/L (0.7-2.1)
[2025-03-14] VITALS (9 sets, daily range): BP systolic 100–129; BP diastolic 60–74; PULSE 85–94; RESP 12–22; TEMP 36.7–37.5; O2SAT 88–99
[2025-03-14] MEDS: MAGNESIUM SULFATE IN WATER 2 GM/50 ML PIGGYBACK IV (00:32)
[2025-03-14] MEDS: AZITHROMYCIN 250MG TABLET 500 MG PO (00:51)
--- NOTE | 2025-03-14 03:02 | PC.NURSE ---
Patient very restless. Trying to climb out of bed, stating that she has to go pee. Patient placed on BSC and privacy provided. Patient states that she is finished, and TRN with tech provided odette care and helped pt back to bed. Patient with minimal output approx 10ml. Patient becoming increasingly difficult to redirect or follow simple commands. Breathing pattern changed to grunting respirations and patient current sats 89-90% on 2L. Increased O2 to 4LNC. Provider notified and ABG ordered. Patient also bladder scanned due to frequency of stating that she needed to urinate. Bladder scanned >700. Patient attempted to urinate once more on BSC only eliminating 200ml. PVR >500. Verbal order from BRYAN Ramos at bedside to place renteria. Renteria anchored and immediate output of 575ml. Patient repositioned to comfort and resting with eyes closed at this time. Respirations even and unlabored.
[2025-03-14] MEDS: LEVALBUTEROL 0.63MG/3ML NEB 0.63 MG IH (03:12)
[2025-03-14 03:31] LABS: ABG Base Excess -5.5 mmol/L (-2.4-2.3); ABG HCO3 18.7 mmhg (22.0-26.0); ABG Oxygen Saturation 92 % (90-100); ABG PCO2 28.4 mmhg (35.0-45.0); ABG PH 7.44 mmol/L (7.35-7.45); ABG TCO2 19.6 mmhg (23-27)
[2025-03-14 03:32] LABS: Allen's Test Acceptable; Oxygen 4l %; Source Left Radial
--- NOTE | 2025-03-14 03:49 | PC.NURSE ---
Daughter, Zulay, called and updated on patient status, and events overnight. Updated on plan of care.
--- NOTE | 2025-03-14 04:58 | PC.NURSE ---
Fresh water given, pt requested no Ice, room trash taken out at [id number]
[2025-03-14 05:49] LABS: Microscopic, Urine URINE MICROSCOPIC (MICROSCOPIC)
[2025-03-14 05:50] LABS: Appearance,Urine CLEAR (Clear); Bilirubin,Urine Negative (Negative); Blood, Urine TRACE-I (Negative); Color,Urine YELLOW (Yellow); Glucose,Urine (UA) Negative (Negative); Ketones,Urine Negative (Negative); Leukocyte Esterase,Urine Negative (Negative); Nitrate,Urine POSITIVE (Negative); Protein,Urine Negative (Negative); Specific Gravity, Urine 1.015 (1.005-1.030); Urobilinogen,Urine 0.2 EU/dl (0.2)
[2025-03-14 06:08] LABS: Bacteria,Urine 2+ /lpf
[2025-03-14] MEDS: humaLOG 100 UNITS/ML 10ML VIAL (SSI) SUBCUT ×3 (06:36→16:15)
[2025-03-14 06:43] LABS: POC Glucose,Bedside 216 (70-110)
[2025-03-14 07:47] LABS: Basophils % 0.4 % (0.1-2.0); Eosinophils # 0.2 Kmm3 (0.0-0.4); Eosinophils % 2.3 % (0.1-12.0); Hematocrit 33.4 % (37.0-47.0); Immature Granulocytes # 0.08 10^3uL; Immature Granulocytes % 0.9 %; Lymphocytes # 1.3 K/mm3 (0.7-4.5); Lymphocytes % 14.6 % (10-50); Mean Corpuscular HGB Conc 32.9 g/dL (31.8-35.4); Mean Corpuscular Hemoglobin 33.5 pg (27.0-31.2); Mean Corpuscular Volume 101.8 fl (81-99); Mean Platelet Volume 10.4 fl (7.4-10.4); Monocytes # 0.8 K/mm3 (0.1-1.0); Monocytes % 9.3 % (1.7-9.3); Neutrophils # 6.6 K/mm3 (1.8-7.8); Neutrophils % 72.5 % (37.0-80.0); Nucleated Red Blood Cells # 0 10^3/uL; Nucleated Red Blood Cells % 0 %; Platelet Count 236 K/mm3 (142-424); Red Blood Count 3.28 M/mm3 (4.20-5.40); Red Cell Distribution Width 14.2 % (11.5-17.5); Red Cell Distribution Width-SD 53.1 fL; White Blood Count 9.1 K/mm3 (4.8-10.8)
[2025-03-14 08:23] LABS: Chloride 100 mmol/L (98-107); Potassium 3.9 mmoL/L (3.5-5.1); Sodium 137 mmol/L (136-145)
[2025-03-14] MEDS: AZITHROMYCIN 250MG TABLET 250 MG PO (08:23)
[2025-03-14] MEDS: ENOXAPARIN 40MG/0.4ML SYRINGE 40 MG SUBCUT (08:23)
[2025-03-14 08:26] LABS: Anion Gap 15.9 mEq/L (5-15); Blood Urea Nitrogen 20 mg/dl (7-17); Calcium 9.3 mg/dl (8.4-10.2); Carbon Dioxide 25 mmol/L (22.0-30.0); Creatinine Clearance Estimated 62 mL/min (50-200); Estimated Glomerular Filt Rate 62 ml/min (>60); GFR (African American) 75 ML/MIN (>60); Glucose 186 mg/dl (74-100)
[2025-03-14] MEDS: IPRATROPIUM/ALBUTEROL 3 ML NEB IH (08:41)
--- NOTE | 2025-03-14 10:12 | P.PN_ITS ---
Subjective *Date: 03/14/25 *Time: 15:02 Interval history: Still somewhat confused this morning. On baseline 2 L oxygen. Had some nausea with vomiting after taking azithromycin today. Afebrile. Not back to baseline per daughter at bedside. Kidney function somewhat improved Medical Exam Vital signs and Labs for Last 24 Hours: Vital Signs Temp Pulse Pulse Resp BP BP Pulse Ox 03/14/25 09:00 03/14/25 08:41 92 H 03/14/25 08:41 87 03/14/25 08:41 91 L 03/14/25 08:00 03/14/25 07:00 03/14/25 05:00 03/14/25 04:00 98.1 F 90 12 121/63 88 L 03/14/25 03:12 94 H 03/14/25 03:12 91 H 03/14/25 03:00 03/14/25 02:00 03/14/25 01:00 03/14/25 00:00 98.4 F 89 22 116/67 93 L 03/13/25 22:57 03/13/25 22:41 98 H 03/13/25 22:41 96 H 03/13/25 22:41 94 L 03/13/25 22:00 98.4 F 102 H 14 144/76 H 96 03/13/25 21:10 98.1 F 97 H 20 153/80 H 03/13/25 21:00 97 H 153/80 H 97 03/13/25 20:57 97 H 97 03/13/25 20:40 89 165/84 H 95 03/13/25 20:01 96 H 161/96 H 92 L 03/13/25 19:00 93 H 172/85 H 95 03/13/25 18:30 93 H 163/85 H 95 03/13/25 18:13 99.3 F 98 H 18 186/85 H 94 L 03/13/25 18:13 99.3 F 98 H 18 186/85 H 94 L 03/13/25 18:01 97 H 146/76 H 95 O2 Del Method O2 Flow Rate 03/14/25 09:00 Nasal Cannula 2 03/14/25 08:41 03/14/25 08:41 03/14/25 08:41 Nasal Cannula 2 03/14/25 08:00 Nasal Cannula 2 03/14/25 07:00 Nasal Cannula 2 03/14/25 05:00 Nasal Cannula 2 03/14/25 04:00 Room Air 03/14/25 03:12 03/14/25 03:12 03/14/25 03:00 Nasal Cannula 4 03/14/25 02:00 Nasal Cannula 2 03/14/25 01:00 Nasal Cannula 2 03/14/25 00:00 Nasal Cannula 2 03/13/25 22:57 Nasal Cannula 4 03/13/25 22:41 03/13/25 22:41 03/13/25 22:41 Nasal Cannula 2 03/13/25 22:00 Room Air 03/13/25 21:10 Room Air 03/13/25 21:00 03/13/25 20:57 Nasal Cannula 2 03/13/25 20:40 Room Air 03/13/25 20:01 03/13/25 19:00 Room Air 03/13/25 18:30 Room Air 03/13/25 18:13 Room Air 03/13/25 18:13 Room Air 03/13/25 18:01 Room Air Intake and Output 03/13/25 03/14/25 03/14/25 23:59 07:59 15:59 Intake Total 200 / 200 Output Total 200 / 225 898 / 898 Balance -200 / -25 -698 / -698 Intake: Intake, Total IV Amount 200 / 200 0.9 % Sodium Chloride 1000ML 1, 200 / 200 000 ml @ 500 mls/hr IV .Q2H ONE Rx#:[id number] Output: Output, Urine Amount 200 / 225 898 / 898 Other: Number of Unmeasured Voids 0 0 Weight 73.89 kg 74.072 kg Patient Weight 03/14/25 23:59 Weight 74.072 kg Laboratory Results - last 24 hr 03/13/25 18:40: WBC 13.1 H, RBC 3.70 L, Hgb 12.8, Hct 37.9, MCV 102.4 H, MCH 34.6 H, MCHC 33.8, RDW 14.3, Plt Count 267, MPV 10.3, Neut % (Auto) 74.7, Lymph % (Auto) 8.1 L, [place] % (Auto) 8.6, Eos % (Auto) 7.0, Baso % (Auto) 0.5, Neut # (Auto) 9.8 H, Lymph # (Auto) 1.1, [place] # (Auto) 1.1 H, Eos # (Auto) 0.9 H, Baso # (Auto) 0.1, VBG pH 7.37, VBG pCO2 42.7, VBG pO2 30.6, VBG HCO3 24.4, VBG Total CO2 25.7, VBG O2 Saturation 58.8, VBG Base Excess -0.9, VBG Lactic Acid 3.1 H, Sodium 135 L, Potassium 4.8, Chloride 97 L, Carbon Dioxide 25, Anion Gap 17.8 H, BUN 29 H, Creatinine 1.20 H, Estimated Creat Clear 49, Estimated GFR 45 L, Est GFR ( Amer) 54 L, Glucose 183 H, Calcium 10.9 H, Magnesium 1.4 L, Total Bilirubin 0.6, AST 26, ALT 23, Alkaline Phosphatase 90, NT-Pro-B Natriuret Pep 900 H, Total Protein 8.2 D, Albumin 4.7, Globulin 3.5 H, Albumin/Globulin Ratio 1.3, Lipase 45 03/13/25 19:12: Lactate 2.2 H 03/13/25 19:28: Urine Color Yellow, Urine Appearance Sl cloudy, Urine pH 6.0, Ur Specific [place] 1.010, Urine Protein Trace, Urine Glucose (UA) Negative, Urine Ketones Negative, Urine Blood Trace-l, Urine Nitrate Positive A, Urine Bilirubin Negative, Urine Urobilinogen 0.2, Ur Leukocyte Esterase 1+ A, Urine RBC 3-5, Urine WBC Tntc, Ur Squamous Epith Cells 20-50, Urine Bacteria 4+ 03/13/25 21:42: POC Glucose 224 H 03/13/25 23:14: Lactate 1.6 03/14/25 03:01: Specimen Source Left radial, O2 % 4l, ABG pH 7.44, ABG pCO2 28.4 L, ABG pO2 61.0 L, ABG HCO3 18.7 L, ABG Total CO2 19.6 L, ABG O2 Saturation 92, ABG Base Excess -5.5 L, Luca Test Acceptable 03/14/25 03:30: Urine Color Yellow, Urine Appearance Clear, Urine pH 6.0, Ur Specific [place] 1.015, Urine Protein Negative, Urine Glucose (UA) Negative, Urine Ketones Negative, Urine Blood Trace-i, Urine Nitrate Positive A, Urine Bilirubin Negative, Urine Urobilinogen 0.2, Ur Leukocyte Esterase Negative, Urine RBC None, Urine WBC 3-5, Ur Squamous Epith Cells None, Urine Bacteria 2+ 03/14/25 06:31: POC Glucose 216 H 03/14/25 07:20: WBC 9.1 D, RBC 3.28 L, Hgb 11.0 L D, Hct 33.4 L, MCV 101.8 H, MCH 33.5 H, MCHC 32.9, RDW 14.2, Plt Count 236, MPV 10.4, Neut % (Auto) 72.5, Lymph % (Auto) 14.6, [place] % (Auto) 9.3, Eos % (Auto) 2.3, Baso % (Auto) 0.4, Neut # (Auto) 6.6, Lymph # (Auto) 1.3, [place] # (Auto) 0.8, Eos # (Auto) 0.2, Baso # (Auto) 0.0, Sodium 137, Potassium 3.9, Chloride 100, Carbon Dioxide 25, Anion Gap 15.9 H, BUN 20 H D, Creatinine 0.90 D, Estimated Creat Clear 62, Estimated GFR 62, Est GFR ( Amer) 75 D, Glucose 186 H, Calcium 9.3 I & O for Labs for Last 24 Hours: Intake & Output 03/11/25 03/12/25 03/13/25 03/14/25 23:59 23:59 23:59 23:59 Intake Total 200 / 200 Output Total 200 / 225 898 / 898 Balance -200 / -25 -698 / -698 Weight 73.89 kg 74.072 kg Microbiology Reports for the Last 24 Hours: Microbiology 03/13/25 19:28 Urine,Clean Catch Urine Culture - Preliminary Gram Negative Rods Constitutional: Present mild distress, average body habitus, chronically ill appearing and cooperative Head: Present atraumatic and normocephalic ENT: Present normal exam Respiratory: Present normal respiratory effort; Absent rhonchi, wheezes or crackles Cardiac: Present Reg Rate and Rhythm GI: Present soft and normal bowel sounds; Absent distention or tenderness Extremities: Present normal inspection and full ROM Skin: Present intact; Absent erythema Neuro: Present Grossly Intact, alert, awake and moves all extremities Comment:: Oriented to self. Appears mildly confused Assessment and Plan *Assessment and plan (1) Altered mental status: Status: Acute Category: Medical Code(s): R41.82 - Altered mental status, unspecified (2) UTI (urinary tract infection): Status: Acute Category: Medical Code(s): N39.0 - Urinary tract infection, site not specified (3) Pneumonia with cavity of lung: Status: Acute Category: Medical Code(s): J18.9 - Pneumonia, unspecified organism; J98.4 - Other disorders of lung Plan: Consistent with location of her known lung cancer. Receives Keytruda every 6 weeks (4) Hypomagnesemia: Status: Resolved Category: Medical Code(s): E83.42 - Hypomagnesemia (5) Diabetes mellitus: Status: Acute Qualifiers: Diabetes mellitus type: type 2 Diabetes mellitus rn long term care insulin use: without group home use Diabetes mellitus complication status: with other specified complication Qualified Code(s): E11.69 - Type 2 diabetes mellitus with other specified complication Category: Medical Code(s): E11.9 - Type 2 diabetes mellitus without complications (6) COPD (chronic obstructive pulmonary disease): Status: Chronic Qualifiers: COPD type: emphysema Emphysema type: unspecified Qualified Code(s): J43.9 - Emphysema, unspecified Category: Medical Code(s): J44.9 - Chronic obstructive pulmonary disease, unspecified (7) Smoking greater than 30 pack years: Status: Acute Category: Social Hx Code(s): F17.210 - Nicotine dependence, cigarettes, uncomplicated Plan: Encourage smoking cessation Declined nicotine patch Plan 69-year-old female who presented with confusion, consistent with encephalopathy secondary to infection. Found to have UTI. Has had resistant bacteria in the past. Adjusting antibiotics today. Problems addressed as follows: UTI Metabolic encephalopathy JUVE - Urine culture growing greater than 100,000 gram-negative rods. Urinalysis positive for nitrate, positive for 2+ bacteria, negative for leuk esterase. - Previous cultures positive for Klebsiella, significant resistance. Will transition to meropenem 1 g twice daily based on previous culture results from June 2024. - White count improved today to 9.1. Hemoglobin 11. Kidney function improved to BUN 20, creatinine 0.9, JUVE resolving, creatinine 1.2 on admission. - Repeat CBC, CMP, magnesium ordered for the morning - Awaiting speciation and sensitivity for definitive antibiotic treatment Chronic respiratory failure/COPD: On baseline 2 L oxygen. Does have mild concern for pneumonia but has history of lung cancer. Suspect symptoms mostly related to UTI. Low concern for pneumonia - Continue DuoNebs every 6 hours as needed - Goal sats greater 90% Diabetes: Continue sliding scale insulin and fingersticks ACHS; A1c ordered for the morning. Morning glucose 186. Recurrent nausea: Continue home Compazine 10 mg as needed every 6 hours Neuropathy: Continue home gabapentin 600 mg twice daily Depression: Continue Lexapro 5 mg daily CAD/hypertension: On Plavix 75 mg daily and aspirin 81 mg daily. Continue atenolol 25 mg daily for hypertension. Holding Lipitor in the setting of confusion and nausea and vomiting -Resume Bumex 1 mg twice daily in the morning Full code Lovenox 40 mg subcu daily Diabetic diet
[2025-03-14] MEDS: MEROPENEM 1 GM in 0.9 % SODIUM CHLORIDE 100 ML IV ×2 (11:00→17:20)
[2025-03-14] MEDS: ONDANSETRON 4MG/2ML VIAL 4 MG IV (11:15)
[2025-03-14] MEDS: ALUMINUM/MAGNESIUM/SIMETHICONE 30ML UDC 30 ML PO (12:03)
[2025-03-14 12:08] LABS: POC Glucose,Bedside 194 (70-110)
--- NOTE | 2025-03-14 14:45 | HMH.PHAINT1 ---
Pharmacy Intervention Comments: MEDICATION RECONCILIATION COMPLETE USING EXTERNAL PHARMACY FILL HISTORY AND MOST RECENT ONCOLOGY OFFICE VISIT NOTE. PER NURSE, PATIENT IS CONFUSED AND DAUGHTER IS UNAWARE OF WHAT THE PATIENT TAKES.
--- NOTE | 2025-03-14 16:21 | PC.NURSE ---
PT RESTING IN BED AT TIME OF WRITING. IS ALERT AND RESPONSIVE BUT CONFUSED. STILL REQUIRING 2LNC O2 SUPPORT. PT DID SIT UP TO CHAIR FOR MULTIPLE HOURS TODAY AND TOLERATED WELL. AMOR REMAINS IN PLACE. 1 LARGE BM TODAY. RECEIVED SHOWER TODAY. NEW IV PLACED TO RAC.
[2025-03-14 16:24] LABS: POC Glucose,Bedside 223 (70-110)
--- NOTE | 2025-03-14 16:51 | HMH.PTEV ---
Physical Therapy Evaluation Rehab PT IP Evaluation Start: 03/14/25 08:26 Freq: ONCE Status: Active Protocol: Document 03/14/25 16:33 PDESEROUX (Rec: 03/14/25 16:51 [email or web address] [id number]) Subjective/History History History Pt. presented as a poor historian secondary to current altered mental status. Pt.'s daughter was present in the same room as pt. at the time of the Physical Therapy Inpatient Evaluation was the pt.'s historian. Pt. is a 69 year old female w/ a past medical history of overactive bladder, fibromyalgia, COPD, CHF , HFpEF, pulmonary hypertension, S/P LLE hip ORIF, closed fx. RLE hip, type 2 diabetes mellitus, PAD, hyperlipidemia, and CAD who presents to [facility] 2nd floor Inpatient setting w/ c/o altered mental status and nausea. Pt. was unable to recall why she was present here, however, pt.'s daughter vocalizes that the pt. tends to present w/ altered mental status w/ a UTI in the past. Pt. was unable to recall current living status secondary to altered mental status, question was asked after pt.'s daughter had left room. Subjective Subjective Pt. reports, my knee hurts. New diagnosis of No cancer in past 12 months? [facility] How much help from another person do you currently need... Turning from your None back to your side while in a flat bed without using bedrails? Moving from lying on A little back to sitting on the side of a flat bed without using bedrails? Moving to and from a None bed to a chair ( including a wheelchair)? Standing up from a None chair using your arms? (e.g., wheelchair, bedside chair) Walking in hospital A little room? Climbing 3-5 steps A little with a railing? Mobility Score 21 Mobility Level [facility] Mobility 6 Walk 10 steps or more Mobility Calculator Rehab PT IP Eval Objective Appearance Patient Behavior Distractible,Asleep,Confused Patient Orientation Birthday Difficulty following moderate instructions Speech Pattern Delayed,Spontaneous Speech Ambulation Patient Able to Yes Ambulate Ambulation Observation IP General Gait Wide Based Gait,Shuffling Step Pattern Observation Ambulation Distance 5 (feet) Ambulation Assistive Straight Cane Device Ambulation Ability Contact Guard/Hand Hold Balance Ability to Arise Able, uses arms to help Sitting Balance Steady, safe Standing Balance Steady, wide stance Dynamic Sitting Good Balance Ability Dynamic Standing Good Balance Ability Transfers Bed Transfer Ability Supervision/Stand by Chair Transfer Supervision/Stand by Ability Sit to Stand Bed Supervision/Stand by Transfer Ability Sit to Stand Chair Supervision/Stand by Transfer Ability Pain Right Knee Pain Intensity 7 ROM RLE PT ROM Status WFL LLE PT ROM Status WFL MMT LLE PT MMT WFL RLE PT MMT ABN Rehab PT IP prob,goals,plan Problems Date of Evaluation: 03/14/25 PT IP Problems Balance,Safety Rehab Potential Rehab Potential Good Equipment Needs Assistive Devices Rolling / Wheeled Walker Plan PT Intervention Plan Balance,Safety Duration LOS Discharge Goals Bed Transfer Ability Supervision/Stand by Sit to Stand Chair Supervision/Stand by Transfer Ability Ambulation Assistive Rolling Walker Device Ambulation Distance 15 (feet) Discharge Plan PT Discharge Plan PT recommendation to return to home environment w/ skilled PT Home Health Physical Therapy for balance and stability training upon discharge from [facility] once medically stable per MD. Pt. would receive benefit and decrease fall risk w/ continuing skilled Home Health Physical Therapy w/ current activity level status assessed. While stay at [facility] pt. would receive improve deficits and reduce the risk for a fall from skilled Acute Care PT. Eval Complexity Eval Charge Codes 76986 - Moderate Complexity PHYSICIAN CERTIFICATION: I certify the specified therapy services for [place] are required, authorized, and reviewed every 30 days.
--- OUTSIDE RECORDS SUMMARY | 2025-03-14 17:05 | XMS_ITS | Encounter Summary ---
Author Organization Healthcare Address [address] [place] [address] Care Team Providers Care Membership Manager Name Role Phone Anselmo Montana MD Primary Care Provider [phone] Brett Gaming MD Unavailable [phone] Encounter Details Date Type Department Care Team (Late st Contact Info) Description 04/15/2024 Orders Only External Location [address] [place] [address] Provider, External Social History Tobacco Use Types Packs/Day Years Used Date Smoking Tobacco: Heavy Smoker Cigarettes Smokeless Tobacco: Never Comments No Sex and Gender Information Value Date Recorded Sex Assigned at Not on file Legal Sex Female 8:30 PM EDT Gender Identity Not on file Sexual Orientation Not on file documented as of this encounter Plan of Treatment Not on file documented as of this encounter Procedures Procedure Name Priority Date/Time Associated Diagnosis Comments XR MSK OUTSIDE IMAGES 04/15/2024 2:17 PM EDT documented in this encounter Results * XR MSK OUTSIDE IMAGES (04/15/2024 2:17 PM EDT) Anatomical Region Laterality Modality Radiographic Alpa ging 04/15/2024 2:17 PM EDT External Provider IMG XR PROCEDURES Final Result documented in this encounter Visit Diagnoses Not on filedocumented in this encounter Additional Health Concerns Assessment Noted Time A fall risk assessment has been complete d for the patient 01/23/2023 1:12 PM EDT documented as of this encounter Care Teams Membership Manager Relationship Specialty Start Date End Date Anselmo Montana MD [address] [place] [address] PCP - General 01/28/21 Brett Gaming MD [address] [facility] [address] [place] [id number] Consulting Physician Radiation Oncology 02/02/22 documented as of this encounter
--- OUTSIDE RECORDS SUMMARY | 2025-03-14 17:05 | XMS_ITS ---
Author Organization Healthcare Address [address] [place] [address] Care Team Providers Care Irrigation Teacher Name Role Phone Anselmo Montana MD Primary Care Provider [phone] Brett Gaming MD Unavailable [phone] Active Problems Problem Noted Date Diagnosed Date Difficult intravenous access 07/09/2024 Tobacco use disorder 05/12/2024 Second hand smoke exposure 05/12/2024 Non-small cell carcinoma of left lung 01/28/2022 Cancer Staging:Clinical stage from 11/16/2015:Stage IA3(cT1c, cN0, cM0) - Unsigned Current Treatment and Therapy Plans No current plan information found. Past Treatment and Therapy Plans No past plan information found. Lifetime Dose Tracking * Chemical Lifetime Dose Automatic Entry Manual Entr y Fluoro Time 12.19 minutes 12.19 minutes 0 minutes Air Kerma 546 mGy 546 mGy 0 mGy
--- OUTSIDE RECORDS SUMMARY | 2025-03-14 17:05 | XMS_ITS | Encounter Summary ---
Author Organization Healthcare Address [address] [place] [address] Care Team Providers Care L Tacker Name Role Phone Anselmo Montana MD Primary Care Provider [phone] Brett Gaming MD Unavailable [phone] Encounter Details Date Type Department Care Team (Late st Contact Info) Description 04/08/2024 Orders Only External Location [address] [place] [address] Provider, External Social History Tobacco Use Types [...] Procedure Name Priority Date/Time Associated Diagnosis Comments CT OUTSIDE IMAGES 04/08/2024 2:15 PM EDT documented in this encounter Results * CT OUTSIDE IMAGES (04/08/2024 2:15 PM EDT) Anatomical Region Laterality Modality Computed Tomogra phy 04/08/2024 2:15 PM EDT us External Provider IMG CT PROCEDURES Final Result documented in this encounter Visit Diagnoses Not on filedocumented in this encounter Additional Health Concerns Assessment Noted Time A fall risk assessment has been complete d for the patient 01/23/2023 1:12 PM EDT documented as of this encounter Care Teams L Tacker Relationship Specialty Start Date End Date Anselmo Montana MD [address] [place] [address] PCP - General 01/28/21 Brett Gaming MD [address] [facility] [address] [place] [id number] Consulting Physician Radiation Oncology 02/02/22 documented as of this encounter
--- OUTSIDE RECORDS SUMMARY | 2025-03-14 17:05 | XMS_ITS | Clinical Summary ---
Author Organization Healthcare Address [address] [place] [address] Care Team Providers Care Wound/Ostomy Nurse Name Role Phone Anselmo Montana MD Primary Care Provider [phone] Brett Gaming MD Unavailable Allergies Active Allergy Reactions Criticality Noted Date Comments Levofloxacin Swelling,Unknown - P atient states they do not know rxn details High 09/21/2015 facial swelling Sulfacetamide Anaphylaxis,Unknown - Patient states they do not know rxn details High 09/20/2015 Medications atenolol (Tenormin) 25 MG tablet Take 1 tablet (25 mg) by mouth 1 (one) time each day. 2 Active atorvastatin (Lipitor) 20 MG tablet Take 1 tablet (20 mg) by mouth 1 (one) time each day. 2 Active azithromycin (Zithromax) 250 MG tablet TAKE 1 TABLET BY MOUTH 3 TIMES WEEKLY 2 Active cetirizine (ZyrTEC) 10 MG tablet Take 1 tablet (10 mg) by mouth 1 (one) time each day. 2 Active clopidogrel (Plavix) 75 MG tablet Take 1 tablet (75 mg) by mouth 1 (one) time each day. 2 Active escitalopram (Lexapro) 5 MG tablet Take 1 tablet (5 mg) by mouth 1 (one) time each day. 2 Active fluconazole (Diflucan) 200 MG tablet Take 200 mg by mouth 1 (one) time each day. 2 Active gabapentin (Neurontin) 300 MG capsule Take 2 capsules (600 mg) by mouth 2 (two) times a day. 2 Active meloxicam (Mobic) 15 MG tablet Take 15 mg by mouth 1 (one) time each day. 2 Active metFORMIN (Glucophage) 1000 MG tablet Take 1 tablet (1,000 mg) by mouth 2 (two) times a day. 2 Active spironolactone (Aldactone) 50 MG tablet TAKE 1 TABLET BY MOUTH TWICE DAILY FOR FLUID RETENTION 2 Active Tiotropium [place] Monohydrate (Spiriva Respimat) 2.5 MCG/ACT inhaler 2 puff(s) inhaled once a day Active bumetanide (Bumex) 1 MG tablet TAKE 1 TABLET BY MOUTH TWICE DAILY FOR DIURETIC 3 Active colchicine 0.6 MG tablet 0.5 tablets (0.3 mg). 4 Active allopurinol (Zyloprim) 100 MG tablet 4 Active aspirin (Aspirin EC Low Strength) 81 MG EC tablet Take 1 tablet (81 mg) by mouth. Active amoxicillin-clav ulanate (Augmentin) 500-125 MG tablet Take 1 tablet (500 mg) by mouth 2 (two) times a day. for 7 days 4 Active Misc Natural Products (CRANBERRY/PROBI OTIC PO) Take by mouth. Activ e Calcium Carb-Cholecalcif ran (CALCIUM 600 + D PO) Take by mouth. Act guillaume Cyanocobalamin (Vitamin B-12) 5000 MCG tablet dispersible Take by mouth. Act guillaume Acetaminophen (TYLENOL PO) Take by mouth. Ac tive IBUPROFEN PO Take by mouth. Ac tive Melatonin 1 MG tablet dispersible Take by mouth. Act guillaume tiotropium-oloda terol (Stiolto Respimat) 2.5-2.5 MCG/ACT aerosol solution inhaler Inhale. Active Active Problems Problem Noted Date Diagnosed Date Difficult intravenous access 07/09/2024 Tobacco use disorder 05/12/2024 Second hand smoke exposure 05/12/2024 Non-small cell carcinoma of left lung 01/28/2022 Cancer Staging:Clinical stage from 11/16/2015:Stage IA3(cT1c, cN0, cM0) - Unsigned Immunizations Immunization Administration Dates Next Due Pneumococcal Polysaccharide PPV23 11/20/2015 Family History Medical History Relation Name Comments Colon cancer Father FH: colon cance r Lung cancer Father Pancreatic cancer Father FH: pancre atic cancer Lung cancer Mother FH: lung cancer Allergies Other Asthma Other Cancer Other Diabetes Other Lung cancer Sister 1 Lung cancer Sister 2 FH: lung cancer Relation Name Status Comments Father Mother Other Sister 1 Sister 2 Social History Tobacco Use Types Packs/Day Years Used Date Smoking Tobacco: Every Day Cigarettes 1.5 55.5 Started: 1970 Smokeless Tobacco: Never Tobacco Cessation:Ready to Q uit: No; Counseling Given: Yes Alcohol Use Standard Drinks/Week Comments Never 0 (1 standard drink = 0.6 oz pur e alcohol) Comments No Sex and Gender Information Value Date Recorded Sex Assigned at Not on file Legal Sex Female 8:30 PM EDT Gender Identity Not on file Sexual Orientation Not on file Last Filed Vital Signs Vital Sign Reading Time Taken Comments Blood Pressure 105/63 08/19/2024 10:41 AM EST Pulse 84 08/19/2024 10:41 AM EST Temperature 36.8 C (98.3 F) 08/19/2024 10:41 AM EST Respiratory Rate 16 08/19/2024 10:41 AM EST Oxygen Saturation 93% 08/19/2024 10:41 AM EST Inhaled Oxygen Concentration - - Weight 72 kg (158 lb 11.7 oz) 08/19/2024 10:41 A M EST Height 157.5 cm (5' 2 ) 08/19/2024 10:41 AM EST Body Mass Index 29.03 08/19/2024 10:41 AM EST Plan of Treatment Health Maintenance Due Date Last Done Comments [facility]-Bone Density Scan 1955 [facility]-Depression Screening 1955 [facility]-Hepatitis C Screening 1955 [facility]-Medicare Annual Wellness (AWV) 1955 [facility]-Infant/Child/Adol SDOH Screenings 1955 [facility]-Obesity Intervention 1961 [facility]- SDOH Screenings 1973 [facility]-Adult SDOH Screenings 1973 [facility]-Zoster Vaccines (1 of 2) 1974 [facility]-DTaP,Tdap,and Td Vaccines (1 - Tdap) 11/20/1996 11/19/1996 CT Colonography 2000 Colonoscopy 2000 FIT-DNA 2000 FIT 2000 FOBT 2000 Sigmoidoscopy 2000 [facility]-Colorectal Cancer Screening 2000 [facility]-Breast Cancer Screening 2005 [facility]-RSV Vaccine: 60+ Years or (1 - Risk 60-74 years 1-dose series) 2015 [facility]-Pneumococcal Vaccine: 50+ Years (3 of 3 - PCV) 11/18/2021 11/18/2020, 11/20/2015 [id number] Vaccine ( season) 2024 07/27/2021, 10/25/2020, 09/23/2020 [facility]-Influenza Vaccine (Season Ended) 2025 05/29/2023, 07/06/2022, 05/30/2021, Additional history exists HPV Vaccines Aged Out No longer eligi ble based on patient's age to complete this topic [facility]-HIB Vaccines Aged Out No longer e ligible based on patient's age to complete this topic [facility]-Hepatitis A Vaccines Aged Out No longer eligible based on patient's age to complete this topic [facility]-IPV Vaccines Aged Out No longer e ligible based on patient's age to complete this topic [facility]-Rotavirus Vaccines Aged Out No lo nger eligible based on patient's age to complete this topic Insurance [facility] MEDICARE [facility] MEDIC[facility] Advance Directives * Full Code (Latest Code Status on File) Date Activated Date Inactivated Comments 06/04/2024 1:14 PM 06/04/2024 6:34 PM Question Answer Comments Patient has decision-making capacity? Yes Care Teams Wound/Ostomy Nurse Relationship Specialty Start Date End Date Anselmo Montana MD [address] [facility] [address] [place] [address] PCP - General 01/28/21 Brett Gaming MD [address] [facility] [address] [place] [address] Consulting Physician Radiation Oncology 02/02/22
--- OUTSIDE RECORDS SUMMARY | 2025-03-14 17:05 | XMS_ITS | Encounter Summary ---
Author Organization Healthcare Address [address] [place] [address] Care Team Providers Care Real Estate Job Titles Name Role Phone Anselmo Montana MD Primary Care Provider [phone] Brett Gaming MD Unavailable [phone] Encounter Details Date Type Department Care Team (Late st Contact Info) Description 12/01/2023 Orders Only External Location [address] [place] [address] Provider, External Social History Tobacco Use Types [...] Date/Time Associated Diagnosis Comments CT OUTSIDE IMAGES 12/01/2023 4:48 PM EDT documented in this encounter Results * CT OUTSIDE IMAGES (12/01/2023 4:48 PM EDT) Anatomical Region Laterality Modality Computed Tomogra phy 12/01/2023 4:48 PM EDT us External Provider IMG CT PROCEDURES Final Result documented in this encounter Visit Diagnoses Not on filedocumented in this encounter Additional Health Concerns Assessment Noted Time A fall risk assessment has been complete d for the patient 01/23/2023 1:12 PM EDT documented as of this encounter Care Teams Real Estate Job Titles Relationship Specialty Start Date End Date Anselmo Montana MD [address] [place] [address] PCP - General 01/28/21 Brett Gaming MD [address] [facility] [id number] [place] [id number] Consulting Physician Radiation Oncology 02/02/22 documented as of this encounter
[2025-03-14 20:06] LABS: POC Glucose,Bedside 123 (70-110)
[2025-03-14] MEDS: GABAPENTIN 300MG CAPSULE 600 MG PO (20:08)
[2025-03-15] VITALS (10 sets, daily range): BP systolic 106–153; BP diastolic 53–74; PULSE 64–96; RESP 14–20; TEMP 36.4–37.1; O2SAT 90–99; BMI 29.7
[2025-03-15] MEDS: MEROPENEM 1 GM in 0.9 % SODIUM CHLORIDE 100 ML IV ×2 (01:54→10:24)
[2025-03-15] MEDS: IPRATROPIUM/ALBUTEROL 3 ML NEB IH ×5 (05:05→23:24)
[2025-03-15] MEDS: METHYLPREDNISOLONE SOD SUCC 125MG VIAL 125 MG IV (05:10)
[2025-03-15] MEDS: MAGNESIUM SULFATE IN WATER 2 GM/50 ML PIGGYBACK IV (05:25)
[2025-03-15] MEDS: ALBUTEROL 0.083% 2.5 MG/3 ML NEB IH (05:25)
--- NOTE | 2025-03-15 05:49 | PC.NURSE ---
Pt has recieved ice water and bedside tablehas been cleaned off.
--- NOTE | 2025-03-15 05:53 | XR_ITS ---
PROCEDURE INFORMATION: Exam: XR Chest Exam date and time: 03/15/2025 5:57 AM Age: 69 years old Clinical indication: Other: Hypoxia TECHNIQUE: Imaging protocol: Radiologic exam of the chest. Views: 1 view. COMPARISON: CR XR CHEST PORTABLE 03/13/2025 6:26 PM FINDINGS: Tubes, catheters and devices: Stable right chest medical port. Lungs: Stable diffuse interstitial lung markings without focal consolidation or infiltrate from immediate examination. Pleural spaces: Unremarkable. No pleural effusion. No pneumothorax. Heart/Mediastinum: Unremarkable. No cardiomegaly. Vasculature: Atherosclerotic disease of the aortic arch. Vascular stent seen overlying the left upper mediastinum. Bones/joints: Diffuse degenerative change of the visualized osseous structures. Bones appear somewhat demineralized. IMPRESSION: No acute change from prior examination.
[2025-03-15] MEDS: humaLOG 100 UNITS/ML 10ML VIAL (SSI) SUBCUT ×4 (06:09→21:08)
[2025-03-15 06:26] LABS: POC Glucose,Bedside 174 (70-110)
--- NOTE | 2025-03-15 07:38 | PC.NURSE ---
Pt is alert and orientated x 2-3. Pt. was sleeping most of this shift. Pt on 3 liters N/C oxygen. at 0500: Pt. awoke from sleep and had dislodged the oxygen from her nose. Pt. became hypoxic and was struggling to breath. Pt. had audible wheezes.lung sounds very tight with inspiratory /expiratory wheezes throughout all lung brizuela. Pt. had very decreased air movement. Parul ADAMS was called and came to the bedside. Respiratory therapist was called and came to the bedside. Pt recived a Deuneb followed by an Albuterol Neb. Pt. also got 125 mg SoluMedrol and 2 grams of Magnesium via IV. Pt. was transitioned to a Venti Mask to keep the oxygen sats above 90. Pt. oxygen sats in the low 80's. when this episode started and pt, was very anxious. at 0600 Pt. much calmer and and breathing easier. Lung sounds moving more air and wheezing decreased some. Thomas cath in place and draining well. Personal items and call pickett in reach. safety measures in place.
[2025-03-15 07:58] LABS: Basophils % 0.4 % (0.1-2.0); Eosinophils # 0.2 Kmm3 (0.0-0.4); Eosinophils % 2.2 % (0.1-12.0); Hematocrit 34.2 % (37.0-47.0); Hemoglobin 11.4 g/dL (12.2-16.2); Immature Granulocytes # 0.11 10^3uL; Immature Granulocytes % 1.3 %; Lymphocytes # 0.6 K/mm3 (0.7-4.5); Lymphocytes % 7.5 % (10-50); Mean Corpuscular HGB Conc 33.3 g/dL (31.8-35.4); Mean Corpuscular Hemoglobin 34.3 pg (27.0-31.2); Mean Platelet Volume 10.3 fl (7.4-10.4); Monocytes # 0.3 K/mm3 (0.1-1.0); Monocytes % 3.7 % (1.7-9.3); Neutrophils # 7.1 K/mm3 (1.8-7.8); Neutrophils % 84.9 % (37.0-80.0); Nucleated Red Blood Cells # 0 10^3/uL; Nucleated Red Blood Cells % 0 %; Platelet Count 241 K/mm3 (142-424); Red Blood Count 3.32 M/mm3 (4.20-5.40); Red Cell Distribution Width 14.2 % (11.5-17.5); White Blood Count 8.4 K/mm3 (4.8-10.8)
[2025-03-15 08:16] LABS: Magnesium 2.6 mg/dl (1.6-2.3)
[2025-03-15 08:24] LABS: Alanine Aminotransferase 17 U/L (12-78); Albumin Level 3.6 g/dl (3.5-5.0); Albumin/Globulin Ratio 1.4 (1.1-1.8); Alkaline Phosphatase 82 U/L (38-126); Anion Gap 18.4 mEq/L (5-15); Aspartate Amino Transferase 20 U/L (14-36); Bilirubin,Total 0.6 mg/dl (0.2-1.3); Blood Urea Nitrogen 19 mg/dl (7-17); Calcium 9.5 mg/dl (8.4-10.2); Carbon Dioxide 21 mmol/L (22.0-30.0); Chloride 100 mmol/L (98-107); Creatinine Clearance Estimated 61 mL/min (50-200); Estimated Glomerular Filt Rate 71 ml/min (>60); GFR (African American) 86 ML/MIN (>60); Globulin 2.6 g/dL (1.3-3.2); Glucose 184 mg/dl (74-100); Potassium 4.4 mmoL/L (3.5-5.1); Sodium 135 mmol/L (136-145); Total Protein,Serum 6.2 g/dl (6.3-8.2)
[2025-03-15 08:25] LABS: Hemoglobin A1C 9.5 % (4.0-6.0)
[2025-03-15] MEDS: BUDESONIDE 0.5MG/2ML NEB 0.5 MG IH ×2 (09:08→18:00)
[2025-03-15] MEDS: GABAPENTIN 300MG CAPSULE 600 MG PO ×2 (09:28→21:00)
[2025-03-15] MEDS: ATENOLOL 25MG TABLET 25 MG PO (09:29)
[2025-03-15] MEDS: ASPIRIN EC 81MG TABLET 81 MG PO (09:29)
[2025-03-15] MEDS: BUMETANIDE 1 MG TABLET PO ×2 (09:29→16:04)
[2025-03-15] MEDS: CLOPIDOGREL 75MG TAB 75 MG PO (09:29)
[2025-03-15] MEDS: ESCITALOPRAM 10MG TABLET 5 MG PO (09:29)
[2025-03-15] MEDS: ENOXAPARIN 40MG/0.4ML SYRINGE 40 MG SUBCUT (09:30)
[2025-03-15] MEDS: ALLOPURINOL 100MG TABLET 200 MG PO (09:31)
--- NOTE | 2025-03-15 11:13 | P.PN_ITS ---
Subjective *Date: 03/15/25 *Time: 15:37 Interval history: Patient somewhat more alert today. Having some waxing and waning but doing better. On 3 L oxygen which is her baseline. No nausea or vomiting. Urine culture returned positive for Klebsiella with sensitivity to Levaquin, ertapene m, meropenem. A1c elevated at 9.5. Glucose difficult to control today. Still quite weak. Afebrile. Continue to monitor overnight Medical Exam Vital signs and Labs for Last 24 Hours: Vital Signs Temp Pulse Resp BP Pulse Ox O2 Del Method O2 Flow Rate 03/15/25 07:00 Venturi Mask 15 03/15/25 06:20 92 L Venturi Mask 15 03/15/25 05:00 Nasal Cannula 4 03/15/25 04:00 98.8 F 84 16 153/74 H 90 L Nasal Cannula 3 03/15/25 03:00 Nasal Cannula 3 03/15/25 01:00 Nasal Cannula 2 03/15/25 00:00 98.1 F 64 14 126/68 99 Room Air 03/14/25 23:00 Nasal Cannula 2 03/14/25 21:00 Nasal Cannula 2 03/14/25 20:00 14 99 Nasal Cannula 2 03/14/25 19:52 98.6 F 90 14 118/74 99 Nasal Cannula 3 03/14/25 18:52 Nasal Cannula 2 03/14/25 18:27 Nasal Cannula 2 03/14/25 16:19 Nasal Cannula 03/14/25 16:00 98.4 F 85 18 128/60 97 Nasal Cannula 3 03/14/25 15:00 Nasal Cannula 2 03/14/25 12:48 Nasal Cannula 2 03/14/25 12:00 98.3 F 85 16 129/70 93 L Nasal Cannula 3 FiO2 03/15/25 07:00 03/15/25 06:20 50 03/15/25 05:00 03/15/25 04:00 03/15/25 03:00 03/15/25 01:00 03/15/25 00:00 03/14/25 23:00 03/14/25 21:00 03/14/25 20:00 03/14/25 19:52 03/14/25 18:52 03/14/25 18:27 03/14/25 16:19 03/14/25 16:00 03/14/25 15:00 03/14/25 12:48 03/14/25 12:00 Intake and Output 03/14/25 03/15/25 03/15/25 23:59 07:59 15:59 Intake Total 0 / 300 100 / 100 Output Total 1972 550 / 550 Balance -225 / -1673 -450 / -450 Intake: Intake, Oral Amount 0 / 0 Intake, Total IV Amount 100 / 100 Meropenem 1 gm In 0.9 % Sodium 100 / 100 Chloride 100 ml @ 100 mls/hr IV Q8H [facility] Rx#:[id number] Output: Output, Urine Amount 1972 550 / 550 Other: Number of Unmeasured Voids 0 0 Weight 73.164 kg Patient Weight 03/15/25 23:59 Weight 73.164 kg Laboratory Results - last 24 hr 03/14/25 11:45: POC Glucose 194 H 03/14/25 16:12: POC Glucose 223 H 03/14/25 19:56: POC Glucose 123 H 03/15/25 06:02: POC Glucose 174 H 03/15/25 07:10: WBC 8.4, RBC 3.32 L, Hgb 11.4 L, Hct 34.2 L, MCV 103.0 H, MCH 34.3 H, MCHC 33.3, RDW 14.2, Plt Count 241, MPV 10.3, Neut % (Auto) 84.9 H, Lymph % (Auto) 7.5 L, Lee % (Auto) 3.7, Eos % (Auto) 2.2, Baso % (Auto) 0.4, Neut # (Auto) 7.1, Lymph # (Auto) 0.6 L, Lee # (Auto) 0.3, Eos # (Auto) 0.2, Baso # (Auto) 0.0, Sodium 135 L, Potassium 4.4, Chloride 100, Carbon Dioxide 21 L, Anion Gap 18.4 H, BUN 19 H, Creatinine 0.80, Estimated Creat Clear 61, Estimated GFR 71, Est GFR ( Amer) 86, Glucose 184 H, Hemoglobin A1c 9.5 H , Calcium 9.5, Magnesium 2.6 H D, Total Bilirubin 0.6, AST 20, ALT 17 D, Alkaline Phosphatase 82, Total Protein 6.2 L, Albumin 3.6, Globulin 2.6, Albumin/Globulin Ratio 1.4 I & O for Labs for Last 24 Hours: Intake & Output 03/12/25 03/13/25 03/14/25 03/15/25 23:59 23:59 23:59 23:59 Intake Total 200 / 300 100 / 100 Output Total 200 / 225 1722 / 1972 550 / 550 Balance -200 / -25 -1523 / -1673 -450 / -450 Weight 73.89 kg 74.072 kg 73.164 kg Microbiology Reports for the Last 24 Hours: Microbiology 03/13/25 19:28 Urine,Clean Catch Urine Culture - Final Klebsiella pneumoniae 03/13/25 18:45 Blood Blood Culture - Preliminary NO GROWTH AFTER 24 HOURS 03/13/25 18:48 Blood Blood Culture - Preliminary NO GROWTH AFTER 24 HOURS Constitutional: Present no acute distress, average body habitus, chronically ill appearing and cooperative Comment:: Weak Head: Present atraumatic and normocephalic ENT: Present normal exam Respiratory: Present wheezes (Minor end expiratory) and normal respiratory effort; Absent rhonchi or crackles Cardiac: Present Reg Rate and Rhythm GI: Present soft and normal bowel sounds; Absent distention or tenderness Extremities: Present normal inspection and full ROM Skin: Present intact; Absent erythema Neuro: Present Grossly Intact, alert, awake, oriented x 3 and moves all extremities Assessment and Plan *Assessment and plan (1) Altered mental status: Status: Acute Category: Medical Code(s): R41.82 - Altered mental status, unspecified (2) UTI (urinary tract infection): Status: Acute Category: Medical Code(s): N39.0 - Urinary tract infection, site not specified (3) Pneumonia with cavity of lung: Status: Acute Category: Medical Code(s): J18.9 - Pneumonia, unspecified organism; J98.4 - Other disorders of lung Plan: Consistent with location of her known lung cancer. Receives Keytruda every 6 weeks (4) Hypomagnesemia: Status: Resolved Category: Medical Code(s): E83.42 - Hypomagnesemia (5) Diabetes mellitus: Status: Acute Qualifiers: Diabetes mellitus type: type 2 Diabetes mellitus shelter insulin use: without terminal press operator use Diabetes mellitus complication status: with other specified complication Qualified Code(s): E11.69 - Type 2 diabetes mellitus with other specified complication Category: Medical Code(s): E11.9 - Type 2 diabetes mellitus without complications (6) COPD (chronic obstructive pulmonary disease): Status: Chronic Qualifiers: COPD type: emphysema Emphysema type: unspecified Qualified Code(s): J43.9 - Emphysema, unspecified Category: Medical Code(s): J44.9 - Chronic obstructive pulmonary disease, unspecified (7) Smoking greater than 30 pack years: Status: Acute Category: Social Hx Code(s): F17.210 - Nicotine dependence, cigarettes, uncomplicated Plan: Encourage smoking cessation Declined nicotine patch Plan 69-year-old female who presented with confusion, consistent with encephalopathy secondary to infection. Found to have UTI. Urine culture positive for Klebsiella. Adjusting antibiotics today. Continues to require patient management for adjustments to diabetes regimen and monitor for tolerance of antibiotics. Anticipate discharge tomorrow, problems addressed as follows: UTI Metabolic encephalopathy JUVE - Urine culture growing Klebsiella, sensitive to Levaquin and ertapenem. Patient gets oral ulcers with Levaquin. Will transition to ertapenem 1 g daily. Will need to set up for outpatient infusions at discharge. - WBCs normal at 8.4, hemoglobin 11.4. Kidney function stable with BUN 19, creatinine 0.8. Potassium 4.4. Repeat CBC, CMP, magnesium ordered for the morning. Chronic respiratory failure/COPD: On baseline 2-3 L oxygen. Does have mild concern for pneumonia but has history of lung cancer. Suspect symptoms mostly related to UTI. Low concern for pneumonia - Continue DuoNebs every 6 hours as needed - Goal sats greater 90% Diabetes: Uncontrolled, A1c 9.5. Definitely increases her risk for recurrent UTIs. Initiate basal insulin today with Lantus 10 units. Received 20 units of sliding scale yesterday. Morning glucose 184, increase sliding scale to high intensity. Fingersticks ACHS. Will initiate Januvia 50 mg in the morning Recurrent nausea: Continue home Compazine 10 mg as needed every 6 hours Neuropathy: Continue home gabapentin 600 mg twice daily Depression: Continue Lexapro 5 mg daily CAD/hypertension: On Plavix 75 mg daily and aspirin 81 mg daily. Continue atenolol 25 mg daily for hypertension. Holding Lipitor in the setting of confusion and nausea and vomiting -continue Bumex 1 mg twice daily, decrease to daily tomorrow Full code Lovenox 40 mg subcu daily Diabetic diet
[2025-03-15] MEDS: INSULIN GLARGINE 100 UNITS/ML 3ML FLEXPEN 10 UNIT SUBCUT (11:48)
[2025-03-15 11:57] LABS: POC Glucose,Bedside 474 (70-110)
[2025-03-15] MEDS: ONDANSETRON 4MG/2ML VIAL 4 MG IV (15:59)
[2025-03-15] MEDS: ERTAPENEM SODIUM 1 GM in 0.9 % SODIUM CHLORIDE 50 ML IV (16:10)
--- NOTE | 2025-03-15 16:33 | PC.NURSE ---
MUCH MORE ALERT AND INTERACTIVE TODAY. SPENT A COUPLE OF HOURS UP TO CHAIR. PO INTAKE HAS IMPROVED. WEANED TO 4LNC FROM VENTI MASK THIS MORNING. MEDICATED ONCE FOR N/V WITH GOOD EFFECTIVENESS.
[2025-03-15 21:37] LABS: POC Glucose,Bedside 404 (70-110)
[2025-03-15] MEDS: MELATONIN 5MG TABLET 5 MG PO (21:46)
[2025-03-16] VITALS: BP 97/60; PULSE 77; RESP 14; TEMP 36.8; O2SAT 90
[2025-03-16 00:06] VITALS: PULSE 71
[2025-03-16 04:00] VITALS: BP 102/58; PULSE 75; RESP 14; TEMP 36.7; O2SAT 96; BMI 29.7
[2025-03-16 05:36] VITALS: PULSE 77; PULSE 80; O2SAT 92
[2025-03-16] MEDS: BUDESONIDE 0.5MG/2ML NEB 0.5 MG IH (05:36)
[2025-03-16] MEDS: IPRATROPIUM/ALBUTEROL 3 ML NEB IH ×2 (05:36→12:51)
--- NOTE | 2025-03-16 06:07 | PC.NURSE ---
Passed water and cleane bedside table
[2025-03-16 06:09] LABS: POC Glucose,Bedside 224 (70-110)
[2025-03-16] MEDS: humaLOG 100 UNITS/ML 10ML VIAL (SSI) SUBCUT ×2 (06:13→12:20)
--- NOTE | 2025-03-16 06:30 | PC.NURSE ---
Patient alert and oriented all through the night. Patient is still on 4 liters nasal cannula. Patient was up to the bedside commode once throughout the night with 400 out. Patients glucose at 2100 was 404 she received 20 units of lispro. This am glucose was 224 and patient received 7 units of lispro. Patient has slept the majority of the night, RN was not made aware of patient desating at all. Patient has januvia ordered for this am and at this time it is not available.
[2025-03-16 07:38] LABS: Basophils % 0.1 % (0.1-2.0); Eosinophils % 0.2 % (0.1-12.0); Hematocrit 32.9 % (37.0-47.0); Hemoglobin 10.8 g/dL (12.2-16.2); Immature Granulocytes # 0.11 10^3uL; Immature Granulocytes % 1.3 %; Lymphocytes # 0.9 K/mm3 (0.7-4.5); Lymphocytes % 11.2 % (10-50); Mean Corpuscular HGB Conc 32.8 g/dL (31.8-35.4); Mean Corpuscular Hemoglobin 33.1 pg (27.0-31.2); Mean Corpuscular Volume 100.9 fl (81-99); Mean Platelet Volume 10.3 fl (7.4-10.4); Monocytes # 0.6 K/mm3 (0.1-1.0); Monocytes % 7.6 % (1.7-9.3); Neutrophils # 6.5 K/mm3 (1.8-7.8); Neutrophils % 79.6 % (37.0-80.0); Nucleated Red Blood Cells # 0 10^3/uL; Nucleated Red Blood Cells % 0 %; Platelet Count 263 K/mm3 (142-424); Red Blood Count 3.26 M/mm3 (4.20-5.40); Red Cell Distribution Width 13.7 % (11.5-17.5); Red Cell Distribution Width-SD 50.9 fL; White Blood Count 8.2 K/mm3 (4.8-10.8)
[2025-03-16 07:45] LABS: Albumin Level 3.8 g/dl (3.5-5.0); Chloride 98 mmol/L (98-107); Potassium 4.1 mmoL/L (3.5-5.1); Sodium 137 mmol/L (136-145)
[2025-03-16 07:48] LABS: Alanine Aminotransferase 23 U/L (12-78); Albumin/Globulin Ratio 1.4 (1.1-1.8); Alkaline Phosphatase 77 U/L (38-126); Anion Gap 14.1 mEq/L (5-15); Aspartate Amino Transferase 22 U/L (14-36); Bilirubin,Total 0.2 mg/dl (0.2-1.3); Blood Urea Nitrogen 27 mg/dl (7-17); Calcium 8.7 mg/dl (8.4-10.2); Carbon Dioxide 29 mmol/L (22.0-30.0); Creatinine Clearance Estimated 62 mL/min (50-200); Estimated Glomerular Filt Rate 62 ml/min (>60); GFR (African American) 75 ML/MIN (>60); Globulin 2.8 g/dL (1.3-3.2); Glucose 226 mg/dl (74-100); Total Protein,Serum 6.6 g/dl (6.3-8.2)
[2025-03-16 07:59] VITALS: BP 93/48; PULSE 89; RESP 16; TEMP 36.6; O2SAT 91
[2025-03-16 08:08] LABS: POC Glucose,Bedside 391 (70-110)
[2025-03-16 08:24] LABS: Magnesium 2.1 mg/dl (1.6-2.3)
--- NOTE | 2025-03-16 08:31 | SW/DCPLANNER ---
Addendum entered by Lily Schmidt 03/16/25 11:46: I have updated patient's family that IV antibiotics will require 4 days rather than 3. Original Note: I spoke w/ patient regarding plans once medically stable for discharge. PT evaluated patient and recommended home health services. Patient is not agreeable to home health at this time. Patient will need three days of IV antibiotics (starting tomorrow) per Dr Barbour. Patient stated that her family will transport her to [facility] daily for IV antibiotics. Patient stated that she has all appropriate DME at home. Patient will discharge home today. I did update patient's daughter (Zulay) regarding discharge plans.
[2025-03-16] MEDS: CLOPIDOGREL 75MG TAB 75 MG PO (08:52)
[2025-03-16] MEDS: BUMETANIDE 1 MG TABLET PO (08:52)
[2025-03-16] MEDS: SITAGLIPTIN 50MG TABLET 50 MG PO (08:52)
[2025-03-16] MEDS: ASPIRIN EC 81MG TABLET 81 MG PO (08:52)
[2025-03-16] MEDS: ESCITALOPRAM 10MG TABLET 5 MG PO (08:52)
[2025-03-16] MEDS: ALLOPURINOL 100MG TABLET 200 MG PO (08:53)
[2025-03-16] MEDS: GABAPENTIN 300MG CAPSULE 600 MG PO (08:58)
[2025-03-16] MEDS: ENOXAPARIN 40MG/0.4ML SYRINGE 40 MG SUBCUT (09:01)
[2025-03-16] MEDS: INSULIN GLARGINE 100 UNITS/ML 3ML FLEXPEN 30 UNIT SUBCUT (09:04)
[2025-03-16 09:29] LABS: POC Glucose,Bedside 313 (70-110)
--- NOTE | 2025-03-16 09:51 | HMH.OTEV ---
OT Inpatient Evaluation Rehab OT IP Evaluation Start: 03/16/25 08:50 Freq: ONCE Status: Active Protocol: Document 03/16/25 09:45 TREVOR (Rec: 03/16/25 09:51 TREVOR [id number]) Rehab OT IP Assessment Subjective History PER HPI narrative: 69-year-old female presents to the emergency department with altered mental status, generalized feeling of unwell/weakness for 1 day. Patient feeling numbers are concern for UTI , as patient is prone to frequent UTIs , and is has history of confusion with them. Patient at the bedside is GCS of 14, disoriented to time and date, oriented to person and place, she denies any fever chills chest pain shortness of breath nausea vomiting constipation diarrhea no abdominal pain , no urinary type symptomatology. Patient is a current smoker, denies any alcohol or drug use, other past medical history is consistent with OAB, fibromyalgia, COPD, CHF, HFpEF, pulmonary hypertension, T2DM, PAD, hyperlipidemia, CAD, patient is currently undergoing IV chemotherapy and infusion treatment for unknown lung cancer type. Initial triage vitals are unremarkable. Of note, patient's family numbers at the bedside do endorse a fever , at approximately Tmax of 101 ?F , today, patient did take some Tylenol at 2:30 PM. Subjective I fell. Pt was sitting in chair when therapy arrived. Pt agreed to initial OT eval this morning. Pt orient x3. Pt reported they live with son in home with [address] Pt reports ind in ADLs and IADLs. Pt reports they have shower chair, bedside commode, and at night wear O2 on 2L, currently on 4 1/2 L O2 at [facility]. Pt reports they use cane/walker for FM. Pt agreed to complete a STS transfer from chair for FM task. Pt SBA to don socks. Pt SBA for STS transfer from chair. Pt CGA for FM task of aprox 10 ft and demo fair balance. Pt sat back in chair with SBA. Pt left in chair with call light and all other needs within reach. Objective Patient Orientation Person,Place,Birthday Right Upper WFL Extremity Gross ROM Left Upper Extremity WFL Gross ROM Transfer Training Sit/Stand Transfer Assist Level Supervision/Stand by Chair Transfer Supervision/Stand by Ability Chair Transfer Sit to/from Ambulatory Technique Chair Transfer None Assistive Devices Lower Body Dressing Standby Assistance Ability Decrease in Yes Endurance Rehab OT IP prob,goals,plan Problems Date of Evaluation: 03/16/25 Rehab Potential Rehab Potential Innapropriate for Skilled Therapy Discharge Plan OT Discharge Plan At this time, pt would not benefit from skilled acute OT rehab and services due to presenting at baseline. Pt could benefit from skilled HH OT services and interventions to further address functional limitations in occupational performance at home. CM notified of OT recommendation of HH services. Eval Complexity Eval Charge Codes 61826 - Moderate Complexity PHYSICIAN CERTIFICATION: I certify the specified therapy services for [place] are required, authorized, and reviewed every 30 days.
[2025-03-16] MEDS: ERTAPENEM SODIUM 1 GM in 0.9 % SODIUM CHLORIDE 50 ML IV (12:18)
[2025-03-16 12:34] LABS: POC Glucose,Bedside 262 (70-110)
[2025-03-16 12:51] VITALS: PULSE 71; PULSE 72; O2SAT 95
--- NOTE | 2025-03-16 13:37 | P.DS_ITS ---
<Statement entered by Louie Barbour MD - 03/16/25 17:08> Rounded on patient after nurse practitioner. Personally examined and interviewed patient. Agree with exam findings and care plan as documented. General Admission date:: 03/13/25 Discharge date: 03/16/25 HPI HPI HPI: Ms. Rivers is a 69-year-old female who states she presented to the ER for complaints of shortness of breath. ER reports that patient presented for evaluation of altered mental status and feeling unwell. Family reported that patient was confused and when this happens patient usually has a urinary tract infection. Patient has a past medical history of overactive bladder, fibromyalgia, COPD, CHF, HFpEF, pulmonary hypertension, type 2 diabetes mellitus, PAD, hyperlipidemia, and CAD. Patient reports shortness of breath started 2 days ago. She also reports fever but does not know what her temperature was. She denies urinary frequency, urgency, dysuria, or hematuria. She is a current 1 pack a day smoker and has history of lung cancer on the [facility]. Patient reports she is on 2 L of supplemental oxygen at home. Patient denies chills, cough, congestion, runny nose, chest pain, nausea, vomiti ng, diarrhea, constipation, headache, lightheadedness, dizziness, or syncope. Hospital Course Hospital Course Hospital Course: Ms. Rivers is a 69-year-old female who presented to the emergency department with confusion, likely consistent with secondary infection. Patient workup found to be positive for UTI. Urine culture positive for Klebsiella. Patient received meropenem originally every 8 hours, then transition to ertapenem 1 g daily. Patient hospital course as follows: #UTI, Klebsiella positive #Metabolic encephalopathy #Leukocytosis ?Patient originally had confusion consistent with metabolic encephalopathy, now resolved. Patient alert oriented, appropriate and back to baseline. Patient agreeable to outpatient infusions daily x 4 days with ertapenem 1 g. Leukocytosis noted on admission 13.1, now resolved 8.2. #Chronic respiratory failure failure/COPD ?Patient is baseline on 2 to 3 L oxygen continuously. She also has a history of lung cancer, lungs have expiratory wheezing. Patient received DuoNebs inpatient, has DuoNebs at home. Patient O2 saturations remained greater than 90% during stay. #Diabetes ?A1c on admission 9.5%. Patient currently takes metformin 1000 mg twice daily. ?Discussed better control of diabetes management, starting Januvia 50 mg daily, Lantus 40 units subcu daily. Continue metformin 1000 mg twice daily. Discussed with patient the need to monitor blood sugars daily. Total time spent on discharge 32 minutes in counseling, documentation, chart review, and direct care with patient. Exam Data for Last 24 hours Vital signs and Labs for Last 24 Hours: Temp Pulse Resp BP Pulse Ox O2 Del Method O2 Flow Rate 97.9 F 72 16 93/48 L 95 Nasal Cannula 4.5 03/16/25 07:59 03/16/25 12:51 03/16/25 07:59 03/16/25 07:59 03/16/25 12:51 03/16/25 13:00 03/16/25 13:00 FiO2 50 03/15/25 06:20 Laboratory Results - last 24 hr 03/15/25 15:54: POC Glucose 391 H* 03/15/25 21:02: POC Glucose 404 H* 03/16/25 06:00: POC Glucose 224 H 03/16/25 07:05: WBC 8.2, RBC 3.26 L, Hgb 10.8 L, Hct 32.9 L, MCV 100.9 H, MCH 33.1 H, MCHC 32.8, RDW 13.7, Plt Count 263, MPV 10.3, Neut % (Auto) 79.6, Lymph % (Auto) 11.2, Person % (Auto) 7.6, Eos % (Auto) 0.2, Baso % (Auto) 0.1, Neut # (Auto) 6.5, Lymph # (Auto) 0.9, Person # (Auto) 0.6, Eos # (Auto) 0.0, Baso # (Auto) 0.0, Sodium 137, Potassium 4.1, Chloride 98, Carbon Dioxide 29, Anion Gap 14.1, BUN 27 H D, Creatinine 0.90, Estimated Creat Clear 62, Estimated GFR 62, Est GFR ( Amer) 75, Glucose 226 H D, Calcium 8.7, Magnesium 2.1 D, Total Bilirubin 0.2, AST 22, ALT 23 D, Alkaline Phosphatase 77, Total Protein 6.6, Albumin 3.8, Globulin 2.8, Albumin/Globulin Ratio 1.4 03/16/25 09:03: POC Glucose 313 H* 03/16/25 12:20: POC Glucose 262 H I & O for Last 24 hours: Intake & Output 03/13/25 03/14/25 03/15/25 03/16/25 23:59 23:59 23:59 23:59 Intake Total 200 / 300 850 / 850 640 / 640 Output Total 200 / 225 1723 / 1972 1999 / 2399 1000 / 1000 Balance -200 / -25 -1523 / -1673 -1150 / -1550 -360 / -360 Weight 73.89 kg 74.072 kg 73.164 kg 73.391 kg Microbiology Reports for the Last 24 Hours: Microbiology 03/13/25 18:45 Blood Blood Culture - Preliminary NO GROWTH AFTER 48 HOURS 03/13/25 18:48 Blood Blood Culture - Preliminary Constitutional Constitutional: no acute distress and cooperative *Routine HEENT Exam Head: Present normocephalic ENT: Present mucous membranes moist *Routine Neck Exam Neck: Present supple and full ROM; Absent JVD *Routine Respiratory Exam Respiratory: Present decreased breath sounds, wheezes, normal respiratory effort, able to speak in complete sentences and symmetric chest movement *Routine Cardiovascular Exam Cardiovascular: Present RRR *Routine Abdominal Exam Abdominal: Present soft and normoactive bowel sounds; Absent tenderness or distended *Routine Extremities Exam Extremities: Present full ROM Comments: Scattered bruising *Routine Skin Exam Skin: Present intact Comments: Scattered bruising on extremities *Routine Neurological Exam Neurological: Present alert, oriented X3 and normal speech Results Data Completed and Pending Labs on day of discharge: Labs from last 24 hours 03/16/25 03/16/25 03/16/25 12:20 09:03 07:05 WBC 8.2 RBC 3.26 L Hgb 10.8 L Hct 32.9 L MCV 100.9 H MCH 33.1 H MCHC 32.8 RDW 13.7 Plt Count 263 MPV 10.3 Neut % (Auto) 79.6 Lymph % (Auto) 11.2 Person % (Auto) 7.6 Eos % (Auto) 0.2 Baso % (Auto) 0.1 Neut # (Auto) 6.5 Lymph # (Auto) 0.9 Person # (Auto) 0.6 Eos # (Auto) 0.0 Baso # (Auto) 0.0 Sodium 137 Potassium 4.1 Chloride 98 Carbon Dioxide 29 Anion Gap 14.1 BUN 27 H D Creatinine 0.90 Estimated Creat Clear 62 Estimated GFR 62 Est GFR ( Amer) 75 Glucose 226 H D POC Glucose 262 H 313 H* Calcium 8.7 Magnesium 2.1 D Total Bilirubin 0.2 AST 22 ALT 23 D Alkaline Phosphatase 77 Total Protein 6.6 Albumin 3.8 Globulin 2.8 Albumin/Globulin Ratio 1.4 03/16/25 03/15/25 03/15/25 06:00 21:02 15:54 WBC RBC Hgb Hct MCV MCH MCHC RDW Plt Count MPV Neut % (Auto) Lymph % (Auto) Person % (Auto) Eos % (Auto) Baso % (Auto) Neut # (Auto) Lymph # (Auto) Person # (Auto) Eos # (Auto) Baso # (Auto) Sodium Potassium Chloride Carbon Dioxide Anion Gap BUN Creatinine Estimated Creat Clear Estimated GFR Est GFR ( Amer) Glucose POC Glucose 224 H 404 H* 391 H* Calcium Magnesium Total Bilirubin AST ALT Alkaline Phosphatase Total Protein Albumin Globulin Albumin/Globulin Ratio Preliminary micro results at discharge 03/13/25 18:45 Blood Culture - Preliminary Blood NO GROWTH AFTER 48 HOURS 03/13/25 18:48 Blood Culture - Preliminary Blood DS: Diagnosis Discharge Diagnosis (1) Altered mental status: Status: Acute Code(s): R41.82 - Altered mental status, unspecified (2) UTI (urinary tract infection): Status: Acute Code(s): N39.0 - Urinary tract infection, site not specified (3) Pneumonia with cavity of lung: Status: Acute Code(s): J18.9 - Pneumonia, unspecified organism; J98.4 - Other disorders of lung (4) Hypomagnesemia: Status: Resolved Code(s): E83.42 - Hypomagnesemia (5) Diabetes mellitus: Status: Acute Code(s): E11.9 - Type 2 diabetes mellitus without complications Qualifiers: Diabetes mellitus complication status: with other specified complication Diabetes mellitus termite treater insulin use: without correction use Diabetes mellitus type: type 2 Qualified Code(s): E11.69 - Type 2 diabetes mellitus with other specified complication (6) COPD (chronic obstructive pulmonary disease): Status: Chronic Code(s): J44.9 - Chronic obstructive pulmonary disease, unspecified Qualifiers: COPD type: emphysema Emphysema type: unspecified Qualified Code(s): J43.9 - Emphysema, unspecified (7) Smoking greater than 30 pack years: Status: Acute Code(s): F17.210 - Nicotine dependence, cigarettes, uncomplicated Meds Home Medications and Allergies Home Medications ?Medication ?Instructions ?Recorded ?Confirmed ?Type atorvastatin 20 mg tablet 20 mg PO HS 90 days ##90 06/0403/14/25 History cetirizine 10 mg tablet 10 mg PO DAILY Allergy sympt oms 30 10/26/17 03/15/25 History days ##30 clopidogrel 75 mg tablet 75 mg PO DAILY 90 days ##90 10/26/17 03/15/25 History metformin 1,000 mg tablet 1,000 mg PO BIDWMEAL 90 days ##180 10/26/17 03/15/25 History aspirin 81 mg tablet,delayed 81 mg PO DAILY 05/06/18 0 03/14/25 History release atenolol 25 mg tablet 25 mg PO DAILY 06/03/2002/16 History escitalopram oxalate 5 mg tablet 5 mg PO DAILY 0 03/15/25 History ipratropium 0.5 mg-albuterol 3 mg 3 ml inhalation QIDP PRN Shortness 05/03/22 03/15/25 History (2.5 mg base)/3 mL nebulization Of Breath soln allopurinol 100 mg tablet 200 mg PO DAILY 12/27/22 History bumetanide 1 mg tablet 1 mg PO BIDL Fluid 30 days # 0 tabs 12/04/23 03/15/25 Rx colchicine 0.6 mg tablet 0.6 mg PO DAILYP PRN GOUT 03/14/25 History oxybutynin chloride 10 mg 10 mg PO DAILY #90 tabs 08/1703/15/25 Rx tablet,extended release 24 hr spironolactone 50 mg tablet 50 mg PO BID Fluid 5 03/15/25 History estradiol 0.01% (0.1 mg/gram) 1 applic vaginal .TWICE WEEKLY 03/14/25 03/14/25 History vaginal cream gabapentin 300 mg capsule 600 mg PO BID 03/14/2503/15 History ondansetron 8 mg disintegrating 8 mg PO Q8HP PRN Nause a And 03/14/25 03/14/25 History tablet Vomiting prochlorperazine maleate 10 mg 10 mg PO Q6HP PRN nause a and 03/14/25 03/14/25 History tablet (Compazine) vomiting promethazine 25 mg tablet 25 mg PO TIDP PRN nausea and 03/14/25 03/14/25 History vomiting Ertapenem Sodium [Invanz 1gm Vial] 100 mls/hr IV Q24H 03/16/25 Rx 1 gm insulin glargine 100 unit/mL (3 40 unit (0.4 mL) SQ DA DANGELO #15 mL 03/16/25 Rx mL) subcutaneous pen (Lantus Solostar U-100 Insulin) pen needle, diabetic 31 gauge x #100 ea 03/16/25 Rx 1/4 sitagliptin phosphate 50 mg tablet 50 mg PO DAILYDM 30 days #30 tabs 03/16/25 Rx (Januvia) New Prescriptions to Start Prescriptions: insulin glargine [Lantus Solostar U-100 Insulin] Gail Lua pen needle, diabetic Gail Lua sitagliptin phosphate [Januvia] Gail Lua Ertapenem Sodium [Invanz 1gm Vial] 1 gm 0.9 % Sodium Chloride [Sod Chlor 0.9% 50mL bag] 50 ml 100 mls/hr IV Q24H Allergies Allergy/AdvReac Type Severity Reaction Status Date / Time Sulfa (Sulfonamide Allergy Unknown BLISTERING Verified 02/19/25 13:28 Antibiotics) OF THROAT levofloxacin (From Levaquin) Allergy BLISTERS Verified 02/19/25 13:28 IN THROAT Discharge Plan Disposition Patient Disposition: Home, Self-Care Condition: Fair Discharge Order Discharge Orders: Discharge Order (Routine); Ordered 03/16/25 Ordered By: Gail Lua Follow up Plan Follow up with: Anselmo Montana MD [Primary Care Provider, Internal Medicine] - 03/25/25 10:15 am Prescriptions/Medication Reconciliation: New Ertapenem Sodium [Invanz 1gm Vial] 1 GM 0.9 % Sodium Chloride [Sod Chlor 0.9% 50mL bag] 50 ML 100 mls/hr IV Q24H needs 4 more doses, until 03/20 Ordered By: Gail Lua APRN Last Taken: 03/16/25 12:18 100 mls/hr insulin glargine [Lantus Solostar U-100 Insulin] 100 unit/mL (3 mL) Insulin Pen 40 unit SQ DAILY Qty: 15 0RF Januvia 50 mg Tablet 50 mg PO DAILYDM 30 Days Qty: 30 0RF (DME) pen needle, diabetic 31 gauge x 1/4 needle See Rx Instructions .Route Qty: 100 0RF Rx Instructions: As directed Continued ipratropium-albuterol 0.5 mg-3 mg(2.5 mg base)/3 mL solution for nebulization 3 ml IH QIDP PRN (Reason: Shortness Of Breath) metformin 1,000 mg tablet 1,000 mg PO BIDWMEAL 90 Days Qty: 180 Patient Comments: clopidogrel 75 mg tablet 75 mg PO DAILY 90 Days Qty: 90 Patient Comments: cetirizine 10 mg tablet 10 mg PO DAILY 30 Days Qty: 30 Patient Comments: TAKE 1 TABLET ONCE A DAY FOR VERTIGO atorvastatin 20 mg tablet 20 mg PO HS 90 Days Qty: 90 Patient Comments: oxybutynin chloride 10 mg tablet extended release 24hr 10 mg PO DAILY Qty: 90 3RF atenolol 25 MG tablet 25 mg PO DAILY escitalopram oxalate 5 MG tablet 5 mg PO DAILY allopurinol 100 mg tablet 200 mg PO DAILY colchicine 0.6 mg tablet 0.6 mg PO DAILYP PRN (Reason: GOUT) gabapentin 300 mg capsule 600 mg PO BID estradiol 0.01 % (0.1 mg/gram) cream 1 applic vaginal .TWICE WEEKLY prochlorperazine maleate [Compazine] 10 mg tablet 10 mg PO Q6HP PRN (Reason: nausea and vomiting) ondansetron 8 mg tablet,disintegrating 8 mg PO Q8HP PRN (Reason: Nausea And Vomiting) promethazine 25 mg tablet 25 mg PO TIDP PRN (Reason: nausea and vomiting) aspirin 81 MG tablet,delayed release (DR/EC) 81 mg PO DAILY bumetanide 1 mg tablet 1 mg PO BIDL 30 Days Qty: 0 0RF spironolactone 50 mg tablet 50 mg PO BID Problem Reconciliation Problems Reviewed?: Yes Patient Discharge Instructions ACTIVITY: Continue current activity DIET: diabetic diet Patient Instructions: DI for Pneumonia -- Adult, DI for Urinary Tract Infection (UTI), DI for Sepsis -- Adult, Catheter-Associated Urinary Tract Infection, Stop Light Pneumonia Print Language: Finnish Providers Primary Care Provider: Anselmo Montana Admit Provider: Louie Barbour Attending Provider: Louie Barbour
--- NOTE | 2025-03-17 10:08 | SW/DCPLANNER ---
Spoke with patient on the phone. Patient stated that she is doing alright. Patient stated that she is aware of her upcoming appointment. Patient stated that she is waiting for her meds to be brought to her house by clinic pharmacy. Patient stated that she has no concerns or questions at this time. Rosalva Zuluaga
--- NOTE | 2025-03-19 07:45 | PC.NURSE ---
Blood culture results forwarded to hospitalist.
== END 2025-03-16 14:55 | disposition home or self-care (01) | DRG 689 ==
LOC: ER 20:03 → 2ND 03-14 05:50
PROVIDERS: Nurse Practitioner Family; Physician Assistant; Admitting Provider Internal Medicine Adolescent Medicine; Emergency Provider Emergency Medicine; PCP Internal Medicine Adolescent Medicine; Visit Provider Internal Medicine Adolescent Medicine
DX: N39.0 Urinary tract infection, site not specified (principal); G93.41 Metabolic encephalopathy; J18.9 Pneumonia, unspecified organism; I50.32 Chronic diastolic (congestive) heart failure; J96.10 Chronic respiratory failure, unspecified whether with hypoxia or hypercapnia; N17.9 Acute kidney failure, unspecified; E83.42 Hypomagnesemia; E11.69 Type 2 diabetes mellitus with other specified complication; J43.9 Emphysema, unspecified; F17.210 Nicotine dependence, cigarettes, uncomplicated; M79.7 Fibromyalgia; I27.20 Pulmonary hypertension, unspecified; E11.51 Type 2 diabetes mellitus with diabetic peripheral angiopathy without gangrene; I25.10 Atherosclerotic heart disease of native coronary artery without angina pectoris; E78.5 Hyperlipidemia, unspecified; I11.0 Hypertensive heart disease with heart failure; E11.40 Type 2 diabetes mellitus with diabetic neuropathy, unspecified; F32.A Depression, unspecified; B96.1 Klebsiella pneumoniae [K. pneumoniae] as the cause of diseases classified elsewhere; Z85.118 Personal history of other malignant neoplasm of bronchus and lung; Z99.81 Dependence on supplemental oxygen; Z79.84 Long term (current) use of oral hypoglycemic drugs; Z79.82 Long term (current) use of aspirin; Z79.899 Other long term (current) drug therapy; Z79.02 Long term (current) use of antithrombotics/antiplatelets; Z79.4 Long term (current) use of insulin; Z88.2 Allergy status to sulfonamides; Z88.1 Allergy status to other antibiotic agents
CPT/HCPCS: 36415; 51702; 70450; 71045; 80048; 80053; 81001; 82803; 82962; 83036; 83605; 83690; 83735; 83880; 85025; 87040; 87077; 87086; 87088; 87186; 93005; 94640; 94761; 97162; 97166; J0696; J1335; J1650; J2185; J2405; J2919; J3475; J7030

== ENCOUNTER 2025-03-17 13:10 | Outpatient (CLI) | payer MEDICARE, SELFPAY ==
--- OUTSIDE RECORDS SUMMARY | 2025-03-17 13:15 | XMS_ITS | Encounter Summary ---
Author Organization Healthcare Address [address] [place] [address] Care Team Providers Care Spine Specialist Name Role Phone Anselmo Montana MD Primary Care Provider [phone] Brett Gaming MD Unavailable [phone] Encounter Details Date Type Department Care Team (Late st Contact Info) Description 04/08/2024 Orders Only External Location [address] [place] [address] Provider, External Social History Tobacco Use Types [...] documented as of this encounter Care Teams Spine Specialist Relationship Specialty Start Date End Date Anselmo Montana MD [address] [place] [address] PCP - General 01/28/21 Brett Gaming MD [address] [facility] [address] [place] [phone] Consulting Physician Radiation Oncology 02/02/22 documented as of this encounter
--- OUTSIDE RECORDS SUMMARY | 2025-03-17 13:15 | XMS_ITS | Encounter Summary ---
Author Organization Healthcare Address [address] [place] [address] Care Team Providers Care Bar Helper Name Role Phone Anselmo Montana MD Primary Care Provider [phone] Brett Gaming MD Unavailable [phone] Encounter Details Date Type Department Care Team (Late st Contact Info) Description 04/15/2024 Orders Only External Location [address] [place] [address] Provider, External Social History Tobacco Use Types [...] documented as of this encounter Care Teams Bar Helper Relationship Specialty Start Date End Date Anselmo Montana MD [address] [place] [address] PCP - General 01/28/21 Brett Gaming MD [address] [facility] [address] [place] [phone] Consulting Physician Radiation Oncology 02/02/22 documented as of this encounter
--- OUTSIDE RECORDS SUMMARY | 2025-03-17 13:15 | XMS_ITS ---
Author Organization Healthcare Address [address] [place] [address] Care Team Providers Care Surveillance Sensor Operator Name Role Phone Anselmo Montana MD Primary Care Provider [phone] Brett Gaming MD Unavailable [phone] Active Problems Problem Noted Date Diagnosed Date [...]
--- OUTSIDE RECORDS SUMMARY | 2025-03-17 13:15 | XMS_ITS | Clinical Summary ---
Author Organization Healthcare Address [address] [place] [address] Care Team Providers Care Machine I Engraver Name Role Phone Anselmo Montana MD Primary Care Provider [phone] Brett Gaming MD Unavailable [phone] Allergies Active Allergy Reactions Criticality Noted Date [...] DAILY FOR FLUID RETENTION 2 Active Tiotropium [place] Monohydrate (Spiriva Respimat) 2.5 MCG/ACT inhaler 2 [...] Screening 1955 [facility]-Medicare Annual Wellness (AWV) 1955 [facility]-/Child/Adol SDOH Screenings 1955 [facility]-Obesity Intervention 1961 [facility]- [...] of 3 - PCV) 11/18/2021 11/18/2020, 11/20/2015 [id number] Vaccine ( season) 2024 07/27/2021, 10/25/2020, 09/23/2020 [...] patient's age to complete this topic Insurance [facility] MEDICARE [facility] MEDICARE Advance Directives * Full Code (Latest Code Status on File) Date Activated Date Inactivated Comments 06/04/2024 1:14 PM 06/04/2024 6:34 PM Question Answer Comments Patient has decision-making capacity? Yes Care Teams Machine I Engraver Relationship Specialty Start Date End Date Anselmo Montana MD [address] [facility] [address] [place] [address] PCP - General 01/28/21 Brett Gaming MD [address] [facility] [address] [place] [address] Consulting Physician Radiation Oncology 02/02/22
--- OUTSIDE RECORDS SUMMARY | 2025-03-17 13:15 | XMS_ITS | Encounter Summary ---
Author Organization Healthcare Address [address] [place] [address] Care Team Providers Care Drying And Winding Supervisor Name Role Phone Anselmo Montana MD Primary Care Provider [phone] Brett Gaming MD Unavailable [phone] Encounter Details Date Type Department Care Team (Late st Contact Info) Description 12/01/2023 Orders Only External Location [address] [place] [address] Provider, External Social History Tobacco Use Types [...] documented as of this encounter Care Teams Drying And Winding Supervisor Relationship Specialty Start Date End Date Anselmo Montaan MD [address] [place] [address] PCP - General 01/28/21 Brett Gaming MD [address] [facility] [address] [place] [phone] Consulting Physician Radiation Oncology 02/02/22 documented as of this encounter
[2025-03-17] MEDS: ERTAPENEM SODIUM 1 GM in 0.9 % SODIUM CHLORIDE 50 ML IV (13:33)
[2025-03-17] MEDS: 0.9 % SODIUM CHLORIDE 50 ML 100 ML IV (13:34)
[2025-03-17 13:40] VITALS: BP 119/63; PULSE 79; RESP 18; O2SAT 92
[2025-03-17] MEDS: SODIUM CHLORIDE 0.9% 10ML FLUSH SYRINGE 10 ML IV (14:25)
[2025-03-17 14:30] VITALS: BP 115/55; PULSE 81; RESP 18; O2SAT 91
== END 2025-03-17 23:59 | disposition home or self-care (01) ==
LOC: INF 13:12
PROVIDERS: PCP Internal Medicine Adolescent Medicine; Visit Provider Internal Medicine Adolescent Medicine
DX: N39.0 Urinary tract infection, site not specified (principal); Z79.2 Long term (current) use of antibiotics
CPT/HCPCS: 96365; J1335; J1642

== ENCOUNTER 2025-03-18 13:04 | Outpatient (CLI) | payer MEDICARE, SELFPAY ==
--- OUTSIDE RECORDS SUMMARY | 2025-03-18 13:06 | XMS_ITS | Encounter Summary ---
Author Organization Healthcare Address [address] [place] [address] Care Team Providers Care Sports Commentator Name Role Phone Anselmo Montana MD Primary Care Provider [phone] Brett Gaming MD Unavailable [phone] Encounter Details Date Type Department Care Team (Late st Contact Info) Description 12/01/2023 Orders Only External Location [address] [place] [address] Provider, External Social History Tobacco Use Types [...] documented as of this encounter Care Teams Sports Commentator Relationship Specialty Start Date End Date Anselmo Montana MD [address] [place] [address] PCP - General 01/28/21 Brett Gaming MD [address] [facility] [address] [place] [phone] Consulting Physician Radiation Oncology 02/02/22 documented as of this encounter
--- OUTSIDE RECORDS SUMMARY | 2025-03-18 13:06 | XMS_ITS ---
Author Organization Healthcare Address [address] [place] [address] Care Team Providers Care Bale Piler Name Role Phone Anselmo Montana MD Primary Care Provider [phone] Brett Gaming MD Unavailable [phone] Active Problems Problem Noted Date Diagnosed Date [...]
--- OUTSIDE RECORDS SUMMARY | 2025-03-18 13:06 | XMS_ITS | Clinical Summary ---
Author Organization Healthcare Address [address] [place] [address] Care Team Providers Care Cello Teacher Name Role Phone Anselmo Montana MD Primary Care Provider [phone] Brett Gaming MD Unavailable Allergies Active Allergy [...] DAILY FOR FLUID RETENTION 2 Active Tiotropium [place] Monohydrate (Spiriva Respimat) 2.5 MCG/ACT inhaler 2 [...] of 3 - PCV) 11/18/2021 11/18/2020, 11/20/2015 [id number] Vaccine ( season) 2024 07/27/2021, 10/25/2020, 09/23/2020 [...] patient's age to complete this topic Insurance [facility] MEDICARE [facility] MEDICARE Advance Directives * Full Code (Latest Code Status on File) Date Activated Date Inactivated Comments 06/04/2024 1:14 PM 06/04/2024 6:34 PM Question Answer Comments Patient has decision-making capacity? Yes Care Teams Cello Teacher Relationship Specialty Start Date End Date Anselmo Montana MD [address] [facility] [address] [place] [address] PCP - General 01/28/21 Brett Gaming MD [address] [facility] [address] [place] [address] Consulting Physician Radiation Oncology 02/02/22
--- OUTSIDE RECORDS SUMMARY | 2025-03-18 13:06 | XMS_ITS | Encounter Summary ---
Author Organization Healthcare Address [address] [place] [address] Care Team Providers Care Comp Field Case Manager Name Role Phone Anselmo Montana MD Primary Care Provider [phone] Brett Gaming MD Unavailable [phone] Encounter Details Date Type Department Care Team (Late st Contact Info) Description 04/08/2024 Orders Only External Location [address] [place] [address] Provider, External Social History Tobacco Use Types [...] documented as of this encounter Care Teams Comp Field Case Manager Relationship Specialty Start Date End Date Anselmo Montana MD [address] [place] [address] PCP - General 01/28/21 Brett Gaming MD [address] [facility] [address] [place] [phone] Consulting Physician Radiation Oncology 02/02/22 documented as of this encounter
--- OUTSIDE RECORDS SUMMARY | 2025-03-18 13:06 | XMS_ITS | Encounter Summary ---
Author Organization Healthcare Address [address] [place] [address] Care Team Providers Care Supervisor Abattoir Name Role Phone Anselmo Montana MD Primary Care Provider [phone] Brett Gaming MD Unavailable [phone] Encounter Details Date Type Department Care Team (Late st Contact Info) Description 04/15/2024 Orders Only External Location [address] [place] [address] Provider, External Social History Tobacco Use Types [...] documented as of this encounter Care Teams Supervisor Abattoir Relationship Specialty Start Date End Date Anselmo Montana MD [address] [place] [address] PCP - General 01/28/21 Brett Gaming MD [address] [facility] [address] [place] [phone] Consulting Physician Radiation Oncology 02/02/22 documented as of this encounter
[2025-03-18] MEDS: 0.9 % SODIUM CHLORIDE 50 ML IV (13:16)
[2025-03-18 13:21] VITALS: BP 102/65; PULSE 77; RESP 18; TEMP 36.4; O2SAT 92
[2025-03-18] MEDS: ERTAPENEM SODIUM 1 GM in 0.9 % SODIUM CHLORIDE 50 ML IV (13:21)
[2025-03-18] MEDS: SODIUM CHLORIDE 0.9% 10ML FLUSH SYRINGE 10 ML IV (13:31)
[2025-03-18 14:05] VITALS: BP 107/60; PULSE 72; RESP 18; O2SAT 94
== END 2025-03-18 14:05 | disposition home or self-care (01) ==
LOC: INF 13:04
PROVIDERS: PCP Internal Medicine Adolescent Medicine; Visit Provider Internal Medicine Medical Oncology
DX: N39.0 Urinary tract infection, site not specified (principal); Z79.2 Long term (current) use of antibiotics
CPT/HCPCS: 96365; J1335; J1642

== ENCOUNTER 2025-03-19 13:09 | Outpatient (CLI) | payer MEDICARE, SELFPAY ==
--- OUTSIDE RECORDS SUMMARY | 2025-03-19 13:18 | XMS_ITS ---
Author Organization Healthcare Address [address] [place] [address] Care Team Providers Care Radio Communication Coordinator Name Role Phone Anselmo Montana MD Primary Care Provider [phone] Brett Gaming MD Unavailable [phone] Active Problems Problem Noted Date Diagnosed Date [...]
--- OUTSIDE RECORDS SUMMARY | 2025-03-19 13:18 | XMS_ITS | Encounter Summary ---
Author Organization Healthcare Address [address] [place] [address] Care Team Providers Care Medical Reimbursement Manager Name Role Phone Anselmo Montana MD Primary Care Provider [phone] Brett Gaming MD Unavailable [phone] Encounter Details Date Type Department Care Team (Late st Contact Info) Description 04/08/2024 Orders Only External Location [address] [place] [address] Provider, External Social History Tobacco Use Types [...] documented as of this encounter Care Teams Medical Reimbursement Manager Relationship Specialty Start Date End Date Anselmo Montana MD [address] [place] [address] PCP - General 01/28/21 Brett Gaming MD [address] [facility] [address] [place] [phone] Consulting Physician Radiation Oncology 02/02/22 documented as of this encounter
--- OUTSIDE RECORDS SUMMARY | 2025-03-19 13:18 | XMS_ITS | Encounter Summary ---
Author Organization Healthcare Address [address] [place] [address] Care Team Providers Care Ride Operator Name Role Phone Anselmo Montana MD Primary Care Provider [phone] Brett Gaming MD Unavailable Encounter Details Date Type Department Care Team (Late st Contact Info) Description 04/15/2024 Orders Only External Location [address] [place] [address] Provider, External Social History Tobacco Use Types [...] documented as of this encounter Care Teams Ride Operator Relationship Specialty Start Date End Date Anselmo Montana MD [address] [place] [address] PCP - General 01/28/21 Brett Gaming MD [address] [facility] [address] [place] [address] Consulting Physician Radiation Oncology 02/02/22 documented as of this encounter
--- OUTSIDE RECORDS SUMMARY | 2025-03-19 13:18 | XMS_ITS | Encounter Summary ---
Author Organization Healthcare Address [address] [place] [address] Care Team Providers Care Shot Polisher Name Role Phone Anselmo Montana MD Primary Care Provider [phone] Brett Gaming MD Unavailable [phone] Encounter Details Date Type Department Care Team (Late st Contact Info) Description 12/01/2023 Orders Only External Location [address] [place] [address] Provider, External Social History Tobacco Use Types [...] documented as of this encounter Care Teams Shot Polisher Relationship Specialty Start Date End Date Anselmo Montana MD [address] [place] [address] PCP - General 01/28/21 Brett Gaming MD 800 [facility] [address] [place] [address] Consulting Physician Radiation Oncology 02/02/22 documented as of this encounter
--- OUTSIDE RECORDS SUMMARY | 2025-03-19 13:18 | XMS_ITS | Clinical Summary ---
Author Organization Healthcare Address [address] [place] [address] Care Team Providers Care Residential Door Installer Name Role Phone Anselmo Montana MD Primary Care Provider [phone] Brett Gaming MD Unavailable [phone] Allergies Active Allergy Reactions Criticality Noted Date [...] DAILY FOR FLUID RETENTION 2 Active Tiotropium [place] Monohydrate (Spiriva Respimat) 2.5 MCG/ACT inhaler 2 [...] of 3 - PCV) 11/18/2021 11/18/2020, 11/20/2015 [id number] Vaccine ( season) 2024 07/27/2021, 10/25/2020, 09/23/2020 UKY-Influenza Vaccine (#1) 05/18/202505/29, 07/06/2022, 05/30/2021, Additional history exists HPV Vaccines [...] patient's age to complete this topic Insurance [facility] MEDICARE [facility] MEDICARE Advance Directives * Full Code (Latest Code Status on File) Date Activated Date Inactivated Comments 06/04/2024 1:14 PM 06/04/2024 6:34 PM Question Answer Comments Patient has decision-making capacity? Yes Care Teams Residential Door Installer Relationship Specialty Start Date End Date Anselmo Montana MD [address] [place] [address] PCP - General 01/28/21 Brett Gaming MD [address] [facility] [address] [place] [address] Consulting Physician Radiation Oncology 02/02/22
[2025-03-19 13:30] VITALS: BP 89/56; PULSE 86; RESP 18; O2SAT 90
[2025-03-19] MEDS: ERTAPENEM SODIUM 1 GM in 0.9 % SODIUM CHLORIDE 50 ML IV (13:30)
[2025-03-19 14:00] VITALS: BP 137/65; PULSE 64; RESP 18
== END 2025-03-19 14:20 | disposition home or self-care (01) ==
LOC: INF 13:11
PROVIDERS: PCP Internal Medicine Adolescent Medicine; Visit Provider Internal Medicine Medical Oncology
DX: N39.0 Urinary tract infection, site not specified (principal)
CPT/HCPCS: 96365; J1335; J1642

== ENCOUNTER 2025-03-20 12:00 | Outpatient (CLI) | payer MEDICARE, SELFPAY ==
--- OUTSIDE RECORDS SUMMARY | 2025-03-20 12:02 | XMS_ITS ---
Author Organization Healthcare Address [address] [place] [address] Care Team Providers Care Front End Developer Designer Name Role Phone Anselmo Montana MD Primary Care Provider [phone] Brett Gaming MD Unavailable [phone] Active Problems Problem Noted Date Diagnosed Date [...]
--- OUTSIDE RECORDS SUMMARY | 2025-03-20 12:02 | XMS_ITS | Encounter Summary ---
Author Organization Healthcare Address [address] [place] [address] Care Team Providers Care Hall Manager Name Role Phone Anselmo Montana MD Primary Care Provider [phone] Brett Gaming MD Unavailable [phone] Encounter Details Date Type Department Care Team (Late st Contact Info) Description 04/08/2024 Orders Only External Location [address] [place] [address] Provider, External Social History Tobacco Use Types [...] documented as of this encounter Care Teams Hall Manager Relationship Specialty Start Date End Date Anselmo Montana MD [address] [place] [address] PCP - General 01/28/21 Brett Gaming MD [address] [facility] [address] [place] [address] Consulting Physician Radiation Oncology 02/02/22 documented as of this encounter
--- OUTSIDE RECORDS SUMMARY | 2025-03-20 12:02 | XMS_ITS | Encounter Summary ---
Author Organization Healthcare Address [address] [place] [address] Care Team Providers Care Management Trainee Marketing Name Role Phone Anselmo Montana MD Primary Care Provider [phone] Brett Gaming MD Unavailable [phone] Encounter Details Date Type Department Care Team (Late st Contact Info) Description 04/15/2024 Orders Only External Location [address] [place] [address] Provider, External Social History Tobacco Use Types [...] documented as of this encounter Care Teams Management Trainee Marketing Relationship Specialty Start Date End Date Anselmo Montana MD [address] [place] [address] PCP - General 01/28/21 Brett Gaming MD [address] [facility] [address] [place] [address] Consulting Physician Radiation Oncology 02/02/22 documented as of this encounter
--- OUTSIDE RECORDS SUMMARY | 2025-03-20 12:02 | XMS_ITS | Clinical Summary ---
Author Organization Healthcare Address [address] [place] [address] Care Team Providers Care Lumber Salvager Name Role Phone Anselmo Montana MD Primary Care Provider [phone] Brett Gaming MD Unavailable [phone] Allergies Active Allergy Reactions Criticality Noted Date [...] DAILY FOR FLUID RETENTION 2 Active Tiotropium [place] Monohydrate (Spiriva Respimat) 2.5 MCG/ACT inhaler 2 [...] of 3 - PCV) 11/18/2021 11/18/2020, 11/20/2015 [id number] Vaccine ( season) 2024 07/27/2021, 10/25/2020, 09/23/2020 [...] patient's age to complete this topic Insurance [facility] MEDICARE [facility] MEDICARE Advance Directives * Full Code (Latest Code Status on File) Date Activated Date Inactivated Comments 06/04/2024 1:14 PM 06/04/2024 6:34 PM Question Answer Comments Patient has decision-making capacity? Yes Care Teams Lumber Salvager Relationship Specialty Start Date End Date Anselmo Montana MD [address] [facility] [address] [place] [address] PCP - General 01/28/21 Brett Gaming MD 800 [facility] [address] [place] [address] Consulting Physician Radiation Oncology 02/02/22
--- OUTSIDE RECORDS SUMMARY | 2025-03-20 12:02 | XMS_ITS | Encounter Summary ---
Author Organization Healthcare Address [address] [place] [address] Care Team Providers Care Transit Planning Manager Name Role Phone Anselmo Montana MD Primary Care Provider [phone] Brett Gaming MD Unavailable [phone] Encounter Details Date Type Department Care Team (Late st Contact Info) Description 12/01/2023 Orders Only External Location [address] [place] [address] Provider, External Social History Tobacco Use Types [...] documented as of this encounter Care Teams Transit Planning Manager Relationship Specialty Start Date End Date Anselmo Montana MD [address] [place] [address] PCP - General 01/28/21 Brett Gaming MD [address] [facility] [address] [place] [address] Consulting Physician Radiation Oncology 02/02/22 documented as of this encounter
[2025-03-20 12:15] VITALS: BP 99/50; PULSE 81; RESP 18; TEMP 37; O2SAT 95
[2025-03-20] MEDS: ERTAPENEM SODIUM 1 GM in 0.9 % SODIUM CHLORIDE 50 ML IV (12:31)
[2025-03-20 13:07] VITALS: BP 97/60; PULSE 82; RESP 19; TEMP 36.9; O2SAT 94
== END 2025-03-20 23:59 | disposition home or self-care (01) ==
LOC: INF 12:01
PROVIDERS: PCP Internal Medicine Adolescent Medicine; Visit Provider Internal Medicine Medical Oncology
DX: N39.0 Urinary tract infection, site not specified (principal)
CPT/HCPCS: 96365; J1335; J1642

== ENCOUNTER 2025-03-30 13:01 | Outpatient (CLI) | payer MEDICARE, SELFPAY ==
--- NOTE | 2025-03-30 13:00 | CT_ITS ---
FINAL REPORT TECHNIQUE: IV contrast enhanced exam This study was performed with techniques to keep radiation doses as low as reasonably achievable, (ALARA). Individualized dose reduction techniques using automated exposure control or adjustment of mA and/or kV according to the patient''s size were employed. CLINICAL HISTORY: lung cancer COMPARISON: 12/24/2024 FINDINGS: Abdomen: There are few scattered subcentimeter hypodense lesions in the liver which are unchanged and most suggestive of small cysts. A right adrenal nodule measuring 19 x 14 mm previously measured 15 x 12 mm. There is a separate fatty nodule in the right adrenal gland measuring 18 mm which is unchanged. The remaining solid organs are negative. No bowel obstruction is present. There is no free air. No fluid collection is seen. There is no adenopathy. Borderline abdominal aortic aneurysm measures up to 29 mm. Pelvis: Mild sigmoid diverticulosis. Mild fecal impaction is noted. There is no free fluid. No pelvic mass is seen. No pelvic adenopathy. IMPRESSION: Stable to minimally progressed right adrenal nodule, mildly suspicious for metastatic disease. No new site of potential metastatic disease within the abdomen or pelvis. Reviewed, Interpreted and Dictated by Callum Armas MD Transcribed by Radha Burrell Authenticated and [facility]
--- NOTE | 2025-03-30 13:00 | CT_ITS ---
FINAL REPORT TECHNIQUE: After the administration of intravenous contrast, axial images through the chest were performed by computed tomography.This study was performed with techniques to keep radiation doses as low as reasonably achievable, (ALARA). Individualized dose reduction techniques using automated exposure control or adjustment of mA and/or kV according to the patient''s size were employed. CLINICAL HISTORY: lung cancer COMPARISON: 12/24/2024 FINDINGS: There is no adenopathy. The heart size is normal. There is no pericardial or pleural effusion. Flexure left upper lobe masslike process measures 40 x 39 mm and previously measured 37 x 25 mm, worse compared to the prior exam. There is a cavitary component posteriorly. The left upper lobe nodule measures 8 mm. A peripheral nodular density in the right upper lobe measures 11 mm on image 30 and previously measured 8 mm. A 2nd nodule within the right upper lobe measures 9 mm and is unchanged. No new pulmonary nodule is identified. IMPRESSION: Interval enlargement of left upper lobe opacity suspicious for progressive tumor. Minimal progression of pulmonary opacities as above favored to represent metastatic disease. Reviewed, Interpreted and Dictated by Callum Armas MD Transcribed by Radha Burrell Authenticated and [facility]
--- OUTSIDE RECORDS SUMMARY | 2025-03-30 13:22 | XMS_ITS | Encounter Summary ---
Author Organization Healthcare Address [address] [place] [address] Care Team Providers Care Forest Aide Name Role Phone Anselmo Montana MD Primary Care Provider [phone] Brett Gaming MD Unavailable [phone] Encounter Details Date Type Department Care Team (Late st Contact Info) Description 12/01/2023 Orders Only External Location [address] [place] [address] Provider, External Social History Tobacco Use Types [...] documented as of this encounter Care Teams Forest Aide Relationship Specialty Start Date End Date Anselmo Montana MD [address] [place] [address] PCP - General 01/28/21 Brett Gaming MD [address] [facility] [address] [place] [address] Consulting Physician Radiation Oncology 02/02/22 documented as of this encounter
--- OUTSIDE RECORDS SUMMARY | 2025-03-30 13:22 | XMS_ITS | Clinical Summary ---
Author Organization Healthcare Address [address] [place] [address] Care Team Providers Care Management Engineer Name Role Phone Anselmo Montana MD Primary Care Provider [phone] Brett Gaming MD Unavailable [phone] Allergies Active Allergy Reactions Criticality Noted Date [...] DAILY FOR FLUID RETENTION 2 Active Tiotropium [place] Monohydrate (Spiriva Respimat) 2.5 MCG/ACT inhaler 2 [...] of 3 - PCV) 11/18/2021 11/18/2020, 11/20/2015 [id number] Vaccine ( season) 2024 07/27/2021, 10/25/2020, 09/23/2020 [...] patient's age to complete this topic Insurance [facility] MEDICARE [facility] MEDICARE Advance Directives * Full Code (Latest Code Status on File) Date Activated Date Inactivated Comments 06/04/2024 1:14 PM 06/04/2024 6:34 PM Question Answer Comments Patient has decision-making capacity? Yes Care Teams Management Engineer Relationship Specialty Start Date End Date Anselmo Montana MD [address] [facility] [address] [place] [address] PCP - General 01/28/21 Brett Gaming MD [address] [facility] [address] [place] [address] Consulting Physician Radiation Oncology 02/02/22
--- OUTSIDE RECORDS SUMMARY | 2025-03-30 13:22 | XMS_ITS | Encounter Summary ---
Author Organization Healthcare Address [address] [place] [address] Care Team Providers Care General Dentist/Owner Name Role Phone Anselmo Montana MD Primary Care Provider [phone] Brett Gaming MD Unavailable [phone] Encounter Details Date Type Department Care Team (Late st Contact Info) Description 04/15/2024 Orders Only External Location [address] [place] [address] Provider, External Social History Tobacco Use Types [...] documented as of this encounter Care Teams General Dentist/Owner Relationship Specialty Start Date End Date Anselmo Montana MD [address] [place] [address] PCP - General 01/28/21 Brett Gaming MD [address] [facility] [address] [place] [address] Consulting Physician Radiation Oncology 02/02/22 documented as of this encounter
--- OUTSIDE RECORDS SUMMARY | 2025-03-30 13:22 | XMS_ITS ---
Author Organization Healthcare Address [address] [place] [address] Care Team Providers Care Sales Special Agent Name Role Phone Anselmo Montana MD Primary Care Provider [phone] Brett Gaming MD Unavailable [phone] Active Problems Problem Noted Date Diagnosed Date [...]
--- OUTSIDE RECORDS SUMMARY | 2025-03-30 13:22 | XMS_ITS | Encounter Summary ---
Author Organization Healthcare Address [address] [place] [address] Care Team Providers Care Quality Control Industrial Engineer Name Role Phone Anselmo Montana MD Primary Care Provider [phone] Brett Gaming MD Unavailable [phone] Encounter Details Date Type Department Care Team (Late st Contact Info) Description 04/08/2024 Orders Only External Location [address] [place] [address] Provider, External Social History Tobacco Use Types [...] documented as of this encounter Care Teams Quality Control Industrial Engineer Relationship Specialty Start Date End Date Anselmo Montana MD [address] [place] [address] PCP - General 01/28/21 Brett Gaming MD [address] [facility] [address] [place] [address] Consulting Physician Radiation Oncology 02/02/22 documented as of this encounter
[2025-03-30] MEDS: SODIUM CHLORIDE 0.9% 10ML SYR (RAD ONLY) 10 ML IV (13:31)
[2025-03-30] MEDS: IOPAMIDOL-370 (76%);100ML BOTTLE 75 ML IV (13:31)
== END 2025-03-30 23:59 | disposition home or self-care (01) ==
LOC: RAD 13:03
PROVIDERS: PCP Internal Medicine Adolescent Medicine; Visit Provider Internal Medicine Medical Oncology
DX: C34.90 Malignant neoplasm of unspecified part of unspecified bronchus or lung (principal); R91.8 Other nonspecific abnormal finding of lung field; R93.5 Abnormal findings on diagnostic imaging of other abdominal regions, including retroperitoneum
CPT/HCPCS: 71260; 74177; Q9967

== ENCOUNTER 2025-04-16 13:10 | Outpatient (CLI) | payer MEDICARE, SELFPAY ==
--- OUTSIDE RECORDS SUMMARY | 2025-04-16 13:13 | XMS_ITS | Encounter Summary ---
Author Organization Healthcare Address [address] [place] [address] Care Team Providers Care Manager Culture Name Role Phone Anselmo Montana MD Primary Care Provider [phone] Brett Gaming MD Unavailable [phone] Encounter Details Date Type Department Care Team (Late st Contact Info) Description 04/15/2024 Orders Only External Location [address] [place] [address] Provider, External Social History Tobacco Use Types [...] documented as of this encounter Care Teams Manager Culture Relationship Specialty Start Date End Date Anselmo Montana MD [address] [place] [address] PCP - General 01/28/21 Brett Gaming MD [address] [facility] [address] [place] [address] Consulting Physician Radiation Oncology 02/02/22 documented as of this encounter
--- OUTSIDE RECORDS SUMMARY | 2025-04-16 13:13 | XMS_ITS | Encounter Summary ---
Author Organization Healthcare Address [address] [place] [address] Care Team Providers Care Animal Hospital Clerk Name Role Phone Anselmo Montana MD Primary Care Provider [phone] Brett Gaming MD Unavailable [phone] Encounter Details Date Type Department Care Team (Late st Contact Info) Description 12/01/2023 Orders Only External Location [address] [place] [address] Provider, External Social History Tobacco Use Types [...] documented as of this encounter Care Teams Animal Hospital Clerk Relationship Specialty Start Date End Date Anselmo Montana MD [address] [place] [address] PCP - General 01/28/21 Brett Gaming MD [address] [facility] [address] [place] [address] Consulting Physician Radiation Oncology 02/02/22 documented as of this encounter
--- OUTSIDE RECORDS SUMMARY | 2025-04-16 13:13 | XMS_ITS | Encounter Summary ---
Author Organization Healthcare Address [address] [place] [address] Care Team Providers Care Assembler Unit Name Role Phone Anselmo Montana MD Primary Care Provider [phone] Brett Gaming MD Unavailable [phone] Encounter Details Date Type Department Care Team (Late st Contact Info) Description 04/08/2024 Orders Only External Location [address] [place] [address] Provider, External Social History Tobacco Use Types [...] documented as of this encounter Care Teams Assembler Unit Relationship Specialty Start Date End Date Anselmo Montana MD [address] [place] [address] PCP - General 01/28/21 Brett Gaming MD [address] [facility] [address] [place] [address] Consulting Physician Radiation Oncology 02/02/22 documented as of this encounter
--- OUTSIDE RECORDS SUMMARY | 2025-04-16 13:13 | XMS_ITS | Clinical Summary ---
Author Organization Healthcare Address [address] [place] [address] Care Team Providers Care Train Reservation Clerk Name Role Phone Anselmo Montana MD Primary Care Provider [phone] Brett Gaming MD Unavailable [phone] Allergies Active Allergy Reactions Criticality Noted Date [...] DAILY FOR FLUID RETENTION 2 Active Tiotropium [place] Monohydrate (Spiriva Respimat) 2.5 MCG/ACT inhaler 2 [...] Date Smoking Tobacco: Every Day Cigarettes 1.5 55.6 Started: 1970 Smokeless Tobacco: Never Tobacco Cessation:Ready [...] of 3 - PCV) 11/18/2021 11/18/2020, 11/20/2015 [id number] Vaccine ( season) 2024 07/27/2021, 10/25/2020, 09/23/2020 [...] patient's age to complete this topic Insurance [facility] MEDICARE [facility] MEDICARE Advance Directives * Full Code (Latest Code Status on File) Date Activated Date Inactivated Comments 06/04/2024 1:14 PM 06/04/2024 6:34 PM Question Answer Comments Patient has decision-making capacity? Yes Care Teams Train Reservation Clerk Relationship Specialty Start Date End Date Anselmo Montana MD [address] [facility] [address] [place] [address] PCP - General 01/28/21 Brett Gaming MD 800 [facility] [address] [place] [address] Consulting Physician Radiation Oncology 02/02/22
--- OUTSIDE RECORDS SUMMARY | 2025-04-16 13:13 | XMS_ITS ---
Author Organization Healthcare Address [address] [place] [address] Care Team Providers Care Fugitive Investigator Name Role Phone Anselmo Montana MD Primary Care Provider [phone] Brett Gaming MD Unavailable [phone] Active Problems Problem Noted Date Diagnosed Date [...]
[2025-04-16 13:45] LABS: Hematocrit 34.4 % (37.0-47.0); Hemoglobin 11.6 g/dL (12.2-16.2); Immature Granulocytes % 1.2 %; Mean Corpuscular HGB Conc 33.7 g/dL (31.8-35.4); Mean Corpuscular Hemoglobin 33.7 pg (27.0-31.2); Mean Corpuscular Volume 100.0 fl (81-99); Nucleated Red Blood Cells % 0 %; Platelet Count 271 K/mm3 (142-424); Red Blood Count 3.44 M/mm3 (4.20-5.40); Red Cell Distribution Width-SD 48.1 fL; White Blood Count 9.9 K/mm3 (4.8-10.8)
[2025-04-16 13:58] LABS: Alanine Aminotransferase 25 U/L (12-78); Albumin Level 4.3 g/dl (3.5-5.0); Albumin/Globulin Ratio 1.4 (1.1-1.8); Alkaline Phosphatase 87 U/L (38-126); Anion Gap 14.7 mEq/L (5-15); Aspartate Amino Transferase 30 U/L (14-36); Bilirubin,Total 0.4 mg/dl (0.2-1.3); Blood Urea Nitrogen 24 mg/dl (7-17); Calcium 10.1 mg/dl (8.4-10.2); Carbon Dioxide 24 mmol/L (22.0-30.0); Chloride 99 mmol/L (98-107); Creatinine,Serum 1.00 mg/dl (0.52-1.04); Estimated Glomerular Filt Rate 55 ml/min (>60); GFR (African American) 67 ML/MIN (>60); Globulin 3.0 g/dL (1.3-3.2); Glucose 299 mg/dl (74-100); Potassium 4.7 mmoL/L (3.5-5.1); Sodium 133 mmol/L (136-145); Total Protein,Serum 7.3 g/dl (6.3-8.2)
[2025-04-16 14:15] VITALS: BP 115/58; PULSE 63; RESP 20; TEMP 36.6; O2SAT 94
[2025-04-16] MEDS: PROCHLORPERAZINE 10MG TABLET 10 MG PO (14:15)
[2025-04-16] MEDS: CATHFLO 2MG VIAL 2 MG (14:15)
[2025-04-16] MEDS: SODIUM CHLORIDE 0.9% 10ML FLUSH SYRINGE 10 ML IV (14:21)
[2025-04-16 14:52] VITALS: BP 127/58; PULSE 62; RESP 20; O2SAT 95
[2025-04-16] MEDS: PEMETREXED DISODIUM IV (14:52)
[2025-04-16] MEDS: SODIUM CHLORIDE 0.9% IV (14:52)
[2025-04-16 15:20] VITALS: BP 133/61; PULSE 61; RESP 20; O2SAT 95
== END 2025-04-16 15:20 | disposition home or self-care (01) ==
LOC: INF 13:11
PROVIDERS: PCP Internal Medicine Adolescent Medicine; Visit Provider Internal Medicine Medical Oncology
DX: Z51.11 Encounter for antineoplastic chemotherapy (principal); C34.90 Malignant neoplasm of unspecified part of unspecified bronchus or lung
CPT/HCPCS: 36593; 80053; 85025; 96409; J1642; J2997; J9305; Q0164

== ENCOUNTER 2025-04-21 23:17 | Emergency (ER) | payer MEDICARE, SELFPAY ==
--- NOTE | 2025-04-21 23:27 | HMH.EDGENADL ---
Discharge Plan Disposition Patient Disposition: Home, Self-Care Prescriptions Prescriptions: No Action ipratropium-albuterol 0.5 mg-3 mg(2.5 mg base)/3 mL solution for nebulization 3 ml IH QIDP PRN (Reason: Shortness Of Breath) clopidogrel 75 mg tablet 75 mg PO DAILY 90 Days Qty: 90 Patient Comments: cetirizine 10 mg tablet 10 mg PO DAILY 30 Days Qty: 30 Patient Comments: TAKE 1 TABLET ONCE A DAY FOR VERTIGO atorvastatin 20 mg tablet 20 mg PO HS 90 Days Qty: 90 Patient Comments: oxybutynin chloride 10 mg tablet extended release 24hr 10 mg PO DAILY Qty: 90 3RF (DME) pen needle, diabetic 31 gauge x 3/16 needle See Rx Instructions .ROUTE .MEDSUPPLY Qty: 1200 Patient Comments: USE DIRECTED Rx Instructions: As directed dexamethasone 4 mg tablet 4 mg PO BID Qty: 36 1RF Rx Instructions: take one tablet by mouth twice daily the day before, day of and day after chemotherapy repeat with each cycle folic acid 1 mg tablet 1 mg PO DAILY Qty: 30 6RF Rx Instructions: take one tablet daily starting 7 days before chemotherapy atenolol 25 MG tablet 25 mg PO DAILY escitalopram oxalate 5 MG tablet 5 mg PO DAILY allopurinol 100 mg tablet 200 mg PO DAILY colchicine 0.6 mg tablet 0.6 mg PO DAILYP PRN (Reason: GOUT) gabapentin 300 mg capsule 600 mg PO BID estradiol 0.01 % (0.1 mg/gram) cream 1 applic vaginal .TWICE WEEKLY prochlorperazine maleate [Compazine] 10 mg tablet 10 mg PO Q6HP PRN (Reason: nausea and vomiting) ondansetron 8 mg tablet,disintegrating 8 mg PO Q8HP PRN (Reason: Nausea And Vomiting) promethazine 25 mg tablet 25 mg PO TIDP PRN (Reason: nausea and vomiting) Ertapenem Sodium [Invanz 1gm Vial] 1 GM 0.9 % Sodium Chloride [Sod Chlor 0.9% 50mL bag] 50 ML 100 mls/hr IV Q24H needs 4 more doses, until 03/20 Ordered By: Gail Lua APRN Last Taken: Unknown insulin glargine [Lantus Solostar U-100 Insulin] 100 unit/mL (3 mL) Insulin Pen 40 unit SQ DAILY Qty: 15 0RF Januvia 50 mg Tablet 50 mg PO DAILYDM 30 Days Qty: 30 0RF (DME) pen needle, diabetic 31 gauge x 1/4 needle See Rx Instructions .Route Qty: 100 0RF Rx Instructions: As directed aspirin 81 MG tablet,delayed release (DR/EC) 81 mg PO DAILY bumetanide 1 mg tablet 1 mg PO BIDL 30 Days Qty: 0 0RF spironolactone 50 mg tablet 50 mg PO BID Referrals Follow up/Referrals: Anselmo Montana MD [Primary Care Provider, Internal Medicine] - See instructions Activity Restrictions/Add. Instructions Additional Instructions/Restrictions: We have given you a one-time dose of ertapenem that last 24 hours. Please call your PCP to schedule subsequent doses for coverage of urinary tract infection. If her symptoms worsen, please bring her back. Clinical Impressions Clinical Impression: Acute UTI AMS (altered mental status) Qualifiers: Altered mental status type: disorientation Qualified Code(s): R41.0 - Disorientation, unspecified Instructions Patient Instructions: DI for Altered Mental Status Print Language Print Language: French Discharge ED Provider: Tom Amado General Adult HPI General Chief complaint: Altered Mental Status Stated complaint: AMS, UTI symptoms Time Seen by Provider: 04/21/25 23:27 History of Present Illness HPI narrative: 69-year-old female with history of recurrent multidrug-resistant Klebsiella UTIs, COPD, lung cancer on chemo presents for altered mental status and dysuria. Daughter reports that every time she gets UTIs she gets altered. She normally does not have any urinary symptoms but she did report some burning with urination yesterday. They saw the PCP who prescribed amoxicillin, but this seems unlikely to cover her based on prior cultures. With regards to mental status, she has been repeating herself some today which is unusual. Her mental status is better overall than it has been with prior UTIs however. No reported fever at home. Related Data Home Medications ?Medication ?Instructions ?Recorded ?Confirmed atorvastatin 20 mg tablet 20 mg PO HS 90 days ##90 10/26/17 04/16/25 cetirizine 10 mg tablet 10 mg PO DAILY Allergy symptoms 10/26/17 04/16/25 days ##30 clopidogrel 75 mg tablet 75 mg PO DAILY 90 days ##90 10/26/17 04/16/25 aspirin 81 mg tablet,delayed 81 mg PO DAILY 05/06/18 04/16/25 release atenolol 25 mg tablet 25 mg PO DAILY 06/03/20 04/16/25 escitalopram oxalate 5 mg tablet 5 mg PO DAILY 06/03/20 04/16/25 ipratropium 0.5 mg-albuterol 3 mg 3 ml inhalation QIDP PRN Shortness 05/03/22 04/16/25 (2.5 mg base)/3 mL nebulization Of Breath soln allopurinol 100 mg tablet 200 mg PO DAILY 12/27/22 04/16/25 colchicine 0.6 mg tablet 0.6 mg PO DAILYP PRN GOUT 02/17/24 04/16/25 spironolactone 50 mg tablet 50 mg PO BID Fluid 01/08/25 04/16/25 estradiol 0.01% (0.1 mg/gram) 1 applic vaginal .TWICE WEEKLY 03/14/25 04/16/25 vaginal cream gabapentin 300 mg capsule 600 mg PO BID 03/14/25 04/16/25 ondansetron 8 mg disintegrating 8 mg PO Q8HP PRN Nausea And 03/14/25 04/16/25 tablet Vomiting prochlorperazine maleate 10 mg 10 mg PO Q6HP PRN nausea and 03/14/25 04/16/25 tablet (Compazine) vomiting promethazine 25 mg tablet 25 mg PO TIDP PRN nausea and 03/14/25 04/16/25 vomiting pen needle, diabetic 31 gauge x #1,200 ea 04/02/25 04/16/2511/30 Previous Rx's ?Medication ?Instructions ?Recorded bumetanide 1 mg tablet 1 mg PO BIDL Fluid 30 days #0 tabs 12/04/23 oxybutynin chloride 10 mg 10 mg PO DAILY #90 tabs 09/03/24 tablet,extended release 24 hr Ertapenem Sodium [Invanz 1gm Vial] 100 mls/hr IV Q24H 03/16/25 1 gm insulin glargine 100 unit/mL (3 40 unit (0.4 mL) SQ DAILY #15 mL 03/16/25 mL) subcutaneous pen (Lantus Solostar U-100 Insulin) pen needle, diabetic 31 gauge x #100 ea 03/16/25 1/4 sitagliptin phosphate 50 mg tablet 50 mg PO DAILYDM 30 days #30 tabs 03/16/25 (Januvia) dexamethasone 4 mg tablet 4 mg PO BID chemotherapy #36 tabs 04/03/25 folic acid 1 mg tablet 1 mg PO DAILY #30 tabs 04/03/25 Allergies Allergy/AdvReac Type Severity Reaction Status Date / Time Sulfa (Sulfonamide Allergy Unknown BLISTERING Verified 04/16/25 15:44 Antibiotics) OF THROAT levofloxacin (From Levaquin) Allergy BLISTERS Verified 04/16/25 15:44 IN THROAT PFSH [facility] Disclaimer: The information contained in this section may have been updated after the patient was seen, as this information can be updated by other users. Medical History Altered mental status Yeast vaginitis Hematuria Atrophic vaginitis Abscess of right thigh Trochanteric bursitis, left hip Delirium Closed fracture of greater trochanter of femur Fall Pneumonia with cavity of lung UTI (urinary tract infection) Sepsis COPD exacerbation Pneumonia CAP (community acquired pneumonia) Pre-op evaluation Pulmonary fungal infection Gout Smoking greater than 30 pack years COPD mixed type Multiple lung nodules on CT Fungal pneumonia Acute and chronic respiratory failure with hypoxia Intertrochanteric fracture of left hip Status post cephalomedullary nailing Closed left hip fracture Acute respiratory failure with hypoxia Pneumonia due to COVID-19 virus Diabetes mellitus Diastolic dysfunction HLD (hyperlipidemia) HTN (hypertension) Subclavian artery stenosis, left PAD (peripheral artery disease) Tobacco use History of placement of stent in LAD coronary artery CAD (coronary artery disease) APR 2022-Severe ostial mid left main disease as described Successful stenting of the ostial proximal mid distal left main artery reducing the stenosis to less than 10% giving excellent angiograph results Preserved ejection fraction Normal left ventricular end-diastolic pressure Persistent stenosis in a large posterior lateral branch which is best managed medically COPD (chronic obstructive pulmonary disease) ACUÑA (dyspnea on exertion) Surgical History History of hysterectomy History of hip surgery Hx of right coronary artery stent placement Family History Other Asthma Cancer Diabetes Hypertension Social History (Updated 04/16/25 @ 15:24 by Martin Medina RN) Smoking Status: Smoker, status unknown tobacco type: cigarettes packs per day: 1 second hand exposure: No alcohol intake: never substance use type: denies use current occupational status: disabled Travel in the last 8 weeks?: None household members: none housing: house current occupational exposures/hazards: No caffeine: Yes Other Medical History Have you received the Flu Vaccine for this season: No Have you received the Pneumonia Vaccine: Yes ROS Obtained: Yes All systems reviewed & no additional complaints except as documented Physical Exam General General appearance: alert and in no apparent distress Head Head exam: atraumatic and normocephalic Eye Eye exam: Present normal appearance, PERRL and EOMI ENT ENT exam: Present normal oropharynx and normal external ear exam Neck Neck exam: Present normal inspection and full ROM Chest Chest inspection: Present normal inspection and symmetric chest wall rise; Absent tenderness Respiratory Respiratory exam: Present wheezes; Absent respiratory distress Cardiovascular Cardiovascular exam: Present regular rate and normal rhythm Abdominal Exam Abdominal exam: Present soft; Absent distention, tenderness or guarding Extremities Exam Extremities exam: Present normal inspection; Absent edema or joint swelling Back Exam Back exam: Present normal inspection; Absent tenderness Neurological Exam Neurological exam: Present alert and oriented X3; Absent motor sensory deficit Psychiatric Psychiatric exam: Present normal affect and normal mood Skin Skin exam: Present warm, dry and normal color Lymphatic Lymphatic Findings: no adenopathy Medical Decision Making Medical Records Medical records reviewed: Yes I reviewed the patient's medical records. Screening: Per USPSTF and CDC recommendations, given the prevalence of disease in our region, it is our hospital?s policy to screen for HIV and viral Hepatitis for all patients aged 18 and over and those with ongoing risk factors. Micheal Inquiry Pt receiving controlled substance: No Micheal was queried for this patient: No Vital Signs: 04/21/25 23:40 04/21/25 23:43 04/22/25 00:30 Temperature 98.5 F Temperature Source Oral Pulse Rate 83 85 Pulse Rate [Right Radial] 82 Respiratory Rate 16 Blood Pressure 136/68 Blood Pressure [Right Arm] 136/68 Blood Pressure Mean 100 Blood Pressure Mean [Right Arm] 90 Blood Pressure Position [Right Arm] Supine 02 Sat by Pulse Oximetry 91 L 91 L Oxygen Delivery Method Room Air 04/22/25 00:31 Temperature Temperature Source Pulse Rate 87 Pulse Rate [Right Radial] Respiratory Rate Blood Pressure Blood Pressure [Right Arm] Blood Pressure Mean Blood Pressure Mean [Right Arm] Blood Pressure Position [Right Arm] 02 Sat by Pulse Oximetry Oxygen Delivery Method Lab Data Lab results reviewed: Yes I reviewed the patient's lab results. Lab Results 04/21/25 23:47: WBC 7.1, RBC 3.92 L, Hgb 13.0, Hct 38.2, MCV 97.4, MCH 33.2 H, MCHC 34.0, RDW 12.7, Plt Count 235, MPV 10.8 H, Neut % (Auto) 61.2, Lymph % (Auto) 16.3, Webb % (Auto) 1.0 L, Eos % (Auto) 20.1 H, Baso % (Auto) 0.1, Neut # (Auto) 4.3, Lymph # (Auto) 1.2, Webb # (Auto) 0.1, Eos # (Auto) 1.4 H, Baso # (Auto) 0.0, Sodium 131 L, Potassium 4.5, Chloride 98, Carbon Dioxide 24, Anion Gap 13.5, BUN 38 H, Creatinine 1.00, Estimated Creat Clear 61, Estimated GFR 55 L, Est GFR ( Amer) 67, Glucose 246 H, Calcium 11.0 H, Phosphorus 3.6, Magnesium 1.7, Total Bilirubin 1.5 H, AST 20, ALT 17, Alkaline Phosphatase 106, Total Protein 7.6, Albumin 4.7, Globulin 2.9, Albumin/Globulin Ratio 1.6, Lipase 43 04/21/25 23:51: VBG pH 7.39, VBG pCO2 39.9, VBG pO2 40.2 H, VBG HCO3 23.7, VBG Total CO2 24.9, VBG O2 Saturation 75.0 H, VBG Base Excess -1.3, VBG Lactic Acid 2.4 H 04/22/25 00:06: Urine Color Yellow, Urine Appearance Cloudy, Urine pH 7.5, Ur Specific [place] 1.015, Urine Protein 2+ A, Urine Glucose (UA) Negative, Urine Ketones Negative, Urine Blood 1+ A, Urine Nitrate Negative, Urine Bilirubin Negative, Urine Urobilinogen 0.2, Ur Leukocyte Esterase 2+ A, Urine WBC Tntc 04/21/25 23:47 04/21/25 23:47 Orders (Tests/Meds): ED MEDICATIONS Generic Name Dose Route Start Last Admin Trade Name Freq PRN Reason Stop Dose Admin Sodium Chloride 1,000 mls @ 999 mls/hr 04/22/25 00:15 Sod Chlor 0.9% 1000ml Bag IV 04/22/25 01:15 .Q1H1M GREG Ertapenem 1 gm/ Sodium 50 mls @ 100 mls/hr 04/22/25 01:00 Chloride IV 05/02/25 00:59 Q24H GREG Discontinued Medications Generic Name Dose Route Start Last Admin Trade Name Freq PRN Reason Stop Dose Admin Albuterol/Ipratropium 3 ml 04/21/25 23:45 04/22/25 00:29 Ipratropium/Albuterol 3 Ml Neb IH 04/21/25 23:46 3 ml ONCE ONE Administration ORDERS Category Date Time Status Consult to Case Management [CONS] Routine Cons 04/22/25 00:54 Active CXR --portable [XR chest portable] Stat Exams 04/21/25 23:45 Completed CBC w/Auto Diff [Complete Blood Count Auto Diff] Stat Lab 04/21/25 23:47 Completed CMP [Comprehensive Metabolic Panel] Stat Lab 04/21/25 23:47 Completed Lipase Stat Lab 04/21/25 23:47 Completed Magnesium Stat Lab 04/21/25 23:47 Completed Phosphorous Stat Lab 04/21/25 23:47 Completed UA [Urinalysis and Microscopic] Stat Lab 04/22/25 00:06 Completed Blood Culture Stat Micro 04/21/25 23:45 Received Urine Culture Stat Micro 04/22/25 00:06 Received VBG [Venous Blood Gas] Stat RT 04/21/25 23:51 Completed Medical Decision Narrative: 69-year-old female with history of COPD, diabetes, lung cancer recently started on chemo, recurrent Klebsiella UTIs presents for burning with urination and altered mental status, consistent with her prior UTIs.. History was obtained via interactive discussion with patient, patient's daughter, chart review. On arrival, patient is [afebrile, hemodynamically stable, satting appropriately, alert, oriented x4, GCS 15], moving all extremities spontaneously. Full physical exam performed and significant for no significant physical exam abnormalities Differential includes but is not limited to UTI, pyelonephritis, medication side effect from recent chemo initiation, neutropenia. Patient was given DuoNeb for breathing treatment because she did not get her nighttime breathing treatment prior to arrival. Workup initiated including CBC CMP urine blood culture chest x-ray EKG VBG,. On re-evaluation, patient [remains afebrile, HD stable.] Laboratory workup independently interpreted by me and significant for no significant leukocytosis or neutropenia. Minimally elevated lactate, mild hyponatremia, BUN mildly elevated from baseline. Urinalysis is consistent with UTI, too numerous to count WBCs. Imaging independently interpreted by me and significant for stable radiograph without new opacity.. See radiology read for full review of final results. EKG independently interpreted by me and significant for sinus rhythm, rate of 80, no significant ST elevation.. Given patient history, exam and workup, patient's presentation most likely represents mild altered mental status secondary to urinary tract infection. Extensive and interactive discussion was had with patient and daughter regarding her presentation. We offered 2 treatment courses. Given she has had very consistent urine culture results with only Klebsiella which have all been treatable with ertapenem, I think ertapenem tonight and outpatient follow-up with continued ertapenem is a reasonable choice, despite the fact that it does not cover Pseudomonas. We discussed the patient's mental status and the daughter feels that she is safe to go home at this time, especially because they have family who will be there 09/04. I also offered the patient admission for IV antibiotics and monitoring to ensure improvement. After extensive discussion, patient and family would like to try outpatient antibiotics first and return if she worsens or does not improve. Given this, patient was given ertapenem and 1 L IV fluids and was discharged in stable condition. Return precautions given. They will call the PCP tomorrow to set up ertapenem injections. Procedures Risk/Benefits of Procedure(s) Were Explained: Yes Critical Care Critical Care Time Critical Care Time: No
--- OUTSIDE RECORDS SUMMARY | 2025-04-21 23:30 | XMS_ITS | Encounter Summary ---
Author Organization Healthcare Address [address] [place] [address] Care Team Providers Care Remotely Piloted Vehicle Controller Name Role Phone Anselmo Montana MD Primary Care Provider [phone] Brett Gaming MD Unavailable [phone] Encounter Details Date Type Department Care Team (Late st Contact Info) Description 04/15/2024 Orders Only External Location [address] [place] [address] Provider, External Social History Tobacco Use Types [...] documented as of this encounter Care Teams Remotely Piloted Vehicle Controller Relationship Specialty Start Date End Date Anselmo Montana MD [address] [place] [address] PCP - General 01/28/21 Brett Gaming MD [address] [facility] [address] [place] [phone] Consulting Physician Radiation Oncology 02/02/22 documented as of this encounter
--- OUTSIDE RECORDS SUMMARY | 2025-04-21 23:30 | XMS_ITS | Encounter Summary ---
Author Organization Healthcare Address [address] [place] [address] Care Team Providers Care Electrical Engineering Technician Name Role Phone Anselmo Montana MD Primary Care Provider [phone] Brett Gaming MD Unavailable [phone] Encounter Details Date Type Department Care Team (Late st Contact Info) Description 12/01/2023 Orders Only External Location [address] [place] [address] Provider, External Social History Tobacco Use Types [...] documented as of this encounter Care Teams Electrical Engineering Technician Relationship Specialty Start Date End Date Anselmo Montana MD [address] [place] [address] PCP - General 01/28/21 Brett Gaming MD [address] [facility] [address] [place] [id number] Consulting Physician Radiation Oncology 02/02/22 documented as of this encounter
--- OUTSIDE RECORDS SUMMARY | 2025-04-21 23:30 | XMS_ITS | Encounter Summary ---
Author Organization Healthcare Address [address] [place] [address] Care Team Providers Care Insurance Healthcare Consultant Name Role Phone Anselmo Montana MD Primary Care Provider [phone] Brett Gaming MD Unavailable [phone] Encounter Details Date Type Department Care Team (Late st Contact Info) Description 04/08/2024 Orders Only External Location [address] [place] [address] Provider, External Social History Tobacco Use Types [...] documented as of this encounter Care Teams Insurance Healthcare Consultant Relationship Specialty Start Date End Date Anselmo Montana MD [address] [place] [address] PCP - General 01/28/21 Brett Gaming MD [address] [facility] [address] [place] [phone] Consulting Physician Radiation Oncology 02/02/22 documented as of this encounter
--- OUTSIDE RECORDS SUMMARY | 2025-04-21 23:30 | XMS_ITS ---
Author Organization Healthcare Address [address] [place] [address] Care Team Providers Care Disposal Man Name Role Phone Anselmo Montana MD Primary Care Provider [phone] Brett Gaming MD Unavailable [phone] Active Problems Problem Noted Date Diagnosed Date [...]
--- OUTSIDE RECORDS SUMMARY | 2025-04-21 23:30 | XMS_ITS | Clinical Summary ---
Author Organization Healthcare Address [address] [place] [address] Care Team Providers Care Building Supervisor Name Role Phone Anselmo Montana MD Primary Care Provider [phone] Brett Gaming MD Unavailable [phone] Allergies Active Allergy Reactions Criticality Noted Date [...] DAILY FOR FLUID RETENTION 2 Active Tiotropium [place] Monohydrate (Spiriva Respimat) 2.5 MCG/ACT inhaler 2 [...] of 3 - PCV) 11/18/2021 11/18/2020, 11/20/2015 [id number] Vaccine ( season) 2024 07/27/2021, 10/25/2020, 09/23/2020 [...] patient's age to complete this topic Insurance [facility] MEDICARE [facility] MEDICARE Advance Directives * Full Code (Latest Code Status on File) Date Activated Date Inactivated Comments 06/04/2024 1:14 PM 06/04/2024 6:34 PM Question Answer Comments Patient has decision-making capacity? Yes Care Teams Building Supervisor Relationship Specialty Start Date End Date Anselmo Montana MD [address] [facility] [address] [place] [address] PCP - General 01/28/21 Brett Gaming MD [address] [facility] [address] [place] [address] Consulting Physician Radiation Oncology 02/02/22
[2025-04-21 23:40] VITALS: BP 136/68; PULSE 83; O2SAT 91
[2025-04-21 23:43] VITALS: BP 136/68; PULSE 82; RESP 16; TEMP 36.9; O2SAT 91; BMI 29.2
--- NOTE | 2025-04-21 23:45 | XR_ITS ---
PROCEDURE INFORMATION: Exam: XR Chest Exam date and time: 04/21/2025 11:58 PM Age: 69 years old Clinical indication: Cough; Additional info: Lung cancer chronic cough, new AMS TECHNIQUE: Imaging protocol: Radiologic exam of the chest. Views: 1 view. COMPARISON: CT CHEST W CON 03/30/2025 1:26 PM FINDINGS: Tubes, catheters and devices: Carmen catheter tip projected over superior vena cava. Lungs: Chronic left basilar opacity. Pleural spaces: Unremarkable. No pleural effusion. No pneumothorax. Heart/Mediastinum: Unremarkable. No cardiomegaly. Vasculature: Similar left proximal subclavian stent. Bones/joints: Unremarkable. IMPRESSION: No acute findings.
--- NOTE | 2025-04-21 23:55 | ECG_ITS ---
APPROVED REPORT Exam: Resting ECG HR:80 bpm ECG Measurements Heart Rate 80 AXES NE 172 P 84 QRSd 84 QRS 89 QT 399 T 25 QTc [address] DEVIATION AND MODERATE T-WAVE ABNORMALITY, CONSIDER LATERAL ISCHEMIA [-0.1+ mV T-WAVE IN I/aVL/V5/V6] ABNORMAL ECG UNCONFIRMED REPORT Electronically signed by : ROBBY RHODES, 04/22/2025 08:49:01
[2025-04-22 00:01] LABS: Hematocrit 38.2 % (37.0-47.0); Hemoglobin 13.0 g/dL (12.2-16.2); Immature Granulocytes % 1.3 %; Mean Corpuscular HGB Conc 34.0 g/dL (31.8-35.4); Mean Corpuscular Hemoglobin 33.2 pg (27.0-31.2); Mean Corpuscular Volume 97.4 fl (81-99); Nucleated Red Blood Cells % 0 %; Platelet Count 235 K/mm3 (142-424); Red Blood Count 3.92 M/mm3 (4.20-5.40); Red Cell Distribution Width-SD 45.4 fL; White Blood Count 7.1 K/mm3 (4.8-10.8)
[2025-04-22 00:02] LABS: VBG HCO3 23.7 mmol/L (23-30); VBG PCO2 39.9 mmol/L (35-51); VBG PH 7.39 mmol/L (7.31-7.41); VBG PO2 40.2 mmol/L (28-40)
[2025-04-22 00:05] LABS: Lactate Venous 2.4 mmol/L (0.4-2.0)
[2025-04-22 00:12] LABS: Microscopic, Urine URINE MICROSCOPIC (MICROSCOPIC)
[2025-04-22 00:14] LABS: Bilirubin,Urine Negative (Negative); Color,Urine YELLOW (Yellow); Glucose,Urine (UA) Negative (Negative); Ketones,Urine Negative (Negative); Leukocyte Esterase,Urine 2+ (Negative); PH,Urine 7.5 (5.0-8.5); Protein,Urine 2+ (Negative); Specific Gravity, Urine 1.015 (1.005-1.030); Urobilinogen,Urine 0.2 EU/dl (0.2)
[2025-04-22 00:15] VITALS: PULSE 79; RESP 21; O2SAT 100
[2025-04-22 00:16] LABS: Alanine Aminotransferase 17 U/L (12-78); Albumin Level 4.7 g/dl (3.5-5.0); Albumin/Globulin Ratio 1.6 (1.1-1.8); Alkaline Phosphatase 106 U/L (38-126); Anion Gap 13.5 mEq/L (5-15); Aspartate Amino Transferase 20 U/L (14-36); Bilirubin,Total 1.5 mg/dl (0.2-1.3); Blood Urea Nitrogen 38 mg/dl (7-17); Calcium 11.0 mg/dl (8.4-10.2); Carbon Dioxide 24 mmol/L (22.0-30.0); Chloride 98 mmol/L (98-107); Creatinine Clearance Estimated 61 mL/min (50-200); Creatinine,Serum 1.00 mg/dl (0.52-1.04); Estimated Glomerular Filt Rate 55 ml/min (>60); GFR (African American) 67 ML/MIN (>60); Globulin 2.9 g/dL (1.3-3.2); Glucose 246 mg/dl (74-100); Magnesium 1.7 mg/dl (1.6-2.3); Potassium 4.5 mmoL/L (3.5-5.1); Sodium 131 mmol/L (136-145); Total Protein,Serum 7.6 g/dl (6.3-8.2)
[2025-04-22] MEDS: IPRATROPIUM/ALBUTEROL 3 ML NEB IH (00:29)
[2025-04-22 00:30] VITALS: PULSE 77; PULSE 85; RESP 24; O2SAT 95
[2025-04-22 00:31] VITALS: PULSE 87
[2025-04-22 00:32] LABS: WBC,Urine TNTC #/hpf (0-3)
[2025-04-22 00:40] LABS: Lipase 43 U/L (23-300); Phosphorous 3.6 mg/dl (2.5-4.5)
[2025-04-22 00:45] VITALS: PULSE 68; RESP 24; O2SAT 94
[2025-04-22 01:00] VITALS: BP 132/76; PULSE 75; RESP 24; O2SAT 92
[2025-04-22] MEDS: ERTAPENEM SODIUM 1 GM in 0.9 % SODIUM CHLORIDE 50 ML IV (01:01)
[2025-04-22] MEDS: 0.9 % SODIUM CHLORIDE 1000ML 1,000 ML 999 ML IV (01:06)
[2025-04-22 01:51] VITALS: BP 130/68; PULSE 70; RESP 12; TEMP 36.4; O2SAT 98
[2025-04-22 04:05] LABS: Reflex Lactic Add Lactic Reflex
== END 2025-04-22 01:53 | disposition home or self-care (01) ==
PROVIDERS: Emergency Provider Emergency Medicine; PCP Internal Medicine Adolescent Medicine
DX: R41.82 Altered mental status, unspecified (principal); N39.0 Urinary tract infection, site not specified; N32.81 Overactive bladder; I10 Essential (primary) hypertension; E78.5 Hyperlipidemia, unspecified; F17.210 Nicotine dependence, cigarettes, uncomplicated
CPT/HCPCS: 51702; 71045; 80053; 81001; 82803; 83690; 83735; 84100; 85025; 87040; 87086; 87088; 87186; 93005; 96361; 96374; 96375; 99285; J1335; J7030

== ENCOUNTER 2025-04-23 13:11 | Outpatient (RCR) | payer MEDICARE, SELFPAY ==
[2025-04-23] MEDS: ERTAPENEM SODIUM 1 GM in 0.9 % SODIUM CHLORIDE 50 ML IV (13:27)
[2025-04-23] MEDS: SODIUM CHLORIDE 0.9% 10ML FLUSH SYRINGE 10 ML IV (13:30)
[2025-04-23 13:35] VITALS: BP 114/64; PULSE 86; RESP 18; TEMP 37.2; O2SAT 94
[2025-04-23 14:16] VITALS: BP 110/62; PULSE 84; O2SAT 93
== END 2025-04-23 14:20 ==
LOC: INF 13:11
PROVIDERS: PCP Internal Medicine Adolescent Medicine; Visit Provider Nurse Practitioner Family
DX: N39.0 Urinary tract infection, site not specified (principal)
CPT/HCPCS: 96365; J1335; J1642

== ENCOUNTER 2025-04-24 13:08 | Outpatient (CLI) | payer MEDICARE, SELFPAY ==
--- OUTSIDE RECORDS SUMMARY | 2025-04-24 13:11 | XMS_ITS ---
Author Organization Healthcare Address [address] [place] [address] Care Team Providers Care Tablet Technician Name Role Phone Anselmo Montana MD Primary Care Provider [phone] Brett Gaming MD Unavailable [phone] Active Problems Problem Noted Date Diagnosed Date [...]
--- OUTSIDE RECORDS SUMMARY | 2025-04-24 13:11 | XMS_ITS | Clinical Summary ---
Author Organization Healthcare Address [address] [place] [address] Care Team Providers Care Concrete Polisher Name Role Phone Anselmo Montana MD Primary Care Provider [phone] Brett Gaming MD Unavailable [phone] Allergies Active Allergy Reactions Criticality Noted Date [...] DAILY FOR FLUID RETENTION 2 Active Tiotropium [place] Monohydrate (Spiriva Respimat) 2.5 MCG/ACT inhaler 2 [...] of 3 - PCV) 11/18/2021 11/18/2020, 11/20/2015 [id number] Vaccine ( season) 2024 07/27/2021, 10/25/2020, 09/23/2020 [...] patient's age to complete this topic Insurance [facility] MEDICARE [facility] MEDICARE Advance Directives * Full Code (Latest Code Status on File) Date Activated Date Inactivated Comments 06/04/2024 1:14 PM 06/04/2024 6:34 PM Question Answer Comments Patient has decision-making capacity? Yes Care Teams Concrete Polisher Relationship Specialty Start Date End Date Anselmo Montana MD [address] [facility] [address] [place] [address] PCP - General 01/28/21 Brett Gaming MD [address] [facility] [address] [place] [address] Consulting Physician Radiation Oncology 02/02/22
--- OUTSIDE RECORDS SUMMARY | 2025-04-24 13:11 | XMS_ITS | Encounter Summary ---
Author Organization Healthcare Address [address] [place] [address] Care Team Providers Care Agricultural Pilot Name Role Phone Anselmo Montana MD Primary Care Provider [phone] Brett Gaming MD Unavailable [phone] Encounter Details Date Type Department Care Team (Late st Contact Info) Description 04/15/2024 Orders Only External Location [address] [place] [address] Provider, External Social History Tobacco Use Types [...] documented as of this encounter Care Teams Agricultural Pilot Relationship Specialty Start Date End Date Anselmo Montana MD [address] [place] [address] PCP - General 01/28/21 Brett Gaming MD [address] [facility] [address] [place] [phone] Consulting Physician Radiation Oncology 02/02/22 documented as of this encounter
--- OUTSIDE RECORDS SUMMARY | 2025-04-24 13:11 | XMS_ITS | Encounter Summary ---
Author Organization Healthcare Address [address] [place] [address] Care Team Providers Care Back Tender Cloth Printing Name Role Phone Anselmo Montana MD Primary Care Provider [phone] Brett Gaming MD Unavailable [phone] Encounter Details Date Type Department Care Team (Late st Contact Info) Description 04/08/2024 Orders Only External Location [address] [place] [address] Provider, External Social History Tobacco Use Types [...] documented as of this encounter Care Teams Back Tender Cloth Printing Relationship Specialty Start Date End Date Anselmo Montana MD [address] [place] [address] PCP - General 01/28/21 Brett Gaming MD [address] [facility] [address] [place] [address] Consulting Physician Radiation Oncology 02/02/22 documented as of this encounter
--- OUTSIDE RECORDS SUMMARY | 2025-04-24 13:11 | XMS_ITS | Encounter Summary ---
Author Organization Healthcare Address [address] [place] [address] Care Team Providers Care Asp Net Programmer Name Role Phone Anselmo Montana MD Primary Care Provider [phone] Brett Gaming MD Unavailable [phone] Encounter Details Date Type Department Care Team (Late st Contact Info) Description 12/01/2023 Orders Only External Location [address] [place] [address] Provider, External Social History Tobacco Use Types [...] documented as of this encounter Care Teams Asp Net Programmer Relationship Specialty Start Date End Date Anselmo Montana MD [address] [place] [address] PCP - General 01/28/21 Brett Gaming MD [address] [facility] [address] [place] [address] Consulting Physician Radiation Oncology 02/02/22 documented as of this encounter
[2025-04-24] MEDS: ERTAPENEM SODIUM 1 GM in 0.9 % SODIUM CHLORIDE 50 ML IV (13:13)
[2025-04-24 13:20] VITALS: BP 90/51; PULSE 74; RESP 18; TEMP 37.1; O2SAT 95
[2025-04-24 14:00] VITALS: BP 92/52; PULSE 76; RESP 18; O2SAT 95
== END 2025-04-24 14:05 | disposition home or self-care (01) ==
LOC: INF 13:09
PROVIDERS: PCP Nurse Practitioner Family; Visit Provider Internal Medicine Medical Oncology
DX: N39.0 Urinary tract infection, site not specified (principal)
CPT/HCPCS: 96365; J1335

== ENCOUNTER 2025-04-25 11:08 | Outpatient (CLI) | payer MEDICARE, SELFPAY ==
--- OUTSIDE RECORDS SUMMARY | 2025-04-25 11:12 | XMS_ITS | Encounter Summary ---
Author Organization Healthcare Address [address] [place] [address] Care Team Providers Care Pan Shaker Name Role Phone Anselmo Montana MD Primary Care Provider [phone] Brett Gaming MD Unavailable [phone] Encounter Details Date Type Department Care Team (Late st Contact Info) Description 04/15/2024 Orders Only External Location [address] [place] [address] Provider, External Social History Tobacco Use Types [...] documented as of this encounter Care Teams Pan Shaker Relationship Specialty Start Date End Date Anselmo Montana MD [address] [place] [address] PCP - General 01/28/21 Brett Gaming MD 800 [facility] [address] [place] [address] Consulting Physician Radiation Oncology 02/02/22 documented as of this encounter
--- OUTSIDE RECORDS SUMMARY | 2025-04-25 11:12 | XMS_ITS | Encounter Summary ---
Author Organization Healthcare Address [address] [place] [address] Care Team Providers Care County Ordinary Name Role Phone Anselmo Montana MD Primary Care Provider [phone] Brett Gaming MD Unavailable [phone] Encounter Details Date Type Department Care Team (Late st Contact Info) Description 12/01/2023 Orders Only External Location [address] [place] [address] Provider, External Social History Tobacco Use Types [...] documented as of this encounter Care Teams County Ordinary Relationship Specialty Start Date End Date Anselmo Montana MD [address] [place] [address] PCP - General 01/28/21 Brett Gaming MD [address] [facility] [address] [place] [address] Consulting Physician Radiation Oncology 02/02/22 documented as of this encounter
--- OUTSIDE RECORDS SUMMARY | 2025-04-25 11:12 | XMS_ITS | Encounter Summary ---
Author Organization Healthcare Address [address] [place] [address] Care Team Providers Care Supervisor Slitting And Shipping Name Role Phone Anselmo Montana MD Primary Care Provider [phone] Brett Gaming MD Unavailable [phone] Encounter Details Date Type Department Care Team (Late st Contact Info) Description 04/08/2024 Orders Only External Location [address] [place] [address] Provider, External Social History Tobacco Use Types [...] as of this encounter Care Teams Supervisor Slitting And Shipping Relationship Specialty Start Date End Date Anselmo Montana MD [address] [place] [address] PCP - General 01/28/21 Brett Gaming MD [address] [facility] [address] [place] [address] Consulting Physician Radiation Oncology 02/02/22 documented as of this encounter
--- OUTSIDE RECORDS SUMMARY | 2025-04-25 11:12 | XMS_ITS | Clinical Summary ---
Author Organization Healthcare Address [address] [place] [address] Care Team Providers Care Commercial Relationship Manager Name Role Phone Anselmo Montana MD Primary Care Provider [phone] Brett Gaming MD Unavailable Allergies Active Allergy [...] DAILY FOR FLUID RETENTION 2 Active Tiotropium [place] Monohydrate (Spiriva Respimat) 2.5 MCG/ACT inhaler 2 [...] of 3 - PCV) 11/18/2021 11/18/2020, 11/20/2015 [id number] Vaccine ( season) 2024 07/27/2021, 10/25/2020, 09/23/2020 [...] patient's age to complete this topic Insurance [facility] MEDICARE [facility] MEDICARE Advance Directives * Full Code (Latest Code Status on File) Date Activated Date Inactivated Comments 06/04/2024 1:14 PM 06/04/2024 6:34 PM Question Answer Comments Patient has decision-making capacity? Yes Care Teams Commercial Relationship Manager Relationship Specialty Start Date End Date Anselmo Montana MD [address] [facility] [address] [place] [address] PCP - General 01/28/21 Brett Gaming MD [address] [facility] [address] [place] [address] Consulting Physician Radiation Oncology 02/02/22
--- OUTSIDE RECORDS SUMMARY | 2025-04-25 11:12 | XMS_ITS ---
Author Organization Healthcare Address [address] [place] [address] Care Team Providers Care Brooch And Bracelet Maker Name Role Phone Anselmo Montana MD Primary Care Provider [phone] Brett Gaming MD Unavailable [phone] Active Problems Problem Noted Date Diagnosed Date [...]
[2025-04-25] MEDS: ERTAPENEM SODIUM 1 GM in 0.9 % SODIUM CHLORIDE 50 ML IV (11:15)
== END 2025-04-25 23:59 | disposition home or self-care (01) ==
LOC: INF 11:10
PROVIDERS: PCP Nurse Practitioner Family; Visit Provider Nurse Practitioner Family
DX: Z01.89 Encounter for other specified special examinations (principal)
CPT/HCPCS: 96365; J1335

== ENCOUNTER 2025-04-26 11:39 | Outpatient (CLI) | payer MEDICARE, SELFPAY ==
--- OUTSIDE RECORDS SUMMARY | 2025-04-26 11:43 | XMS_ITS ---
Author Organization Healthcare Address [address] [place] [address] Care Team Providers Care New Car Get Ready Mechanic Name Role Phone Anselmo Montana MD Primary Care Provider [phone] Brett Gaming MD Unavailable [phone] Active Problems Problem Noted Date Diagnosed Date [...]
--- OUTSIDE RECORDS SUMMARY | 2025-04-26 11:43 | XMS_ITS | Encounter Summary ---
Author Organization Healthcare Address [address] [place] [address] Care Team Providers Care Humidifier Operator Name Role Phone Anselmo Montana MD Primary Care Provider [phone] Brett Gaming MD Unavailable [phone] Encounter Details Date Type Department Care Team (Late st Contact Info) Description 04/08/2024 Orders Only External Location [address] [place] [address] Provider, External Social History Tobacco Use Types [...] documented as of this encounter Care Teams Humidifier Operator Relationship Specialty Start Date End Date Anselmo Montana MD [address] [place] [address] PCP - General 01/28/21 Brett Gaming MD 800 [facility] [address] [place] [address] Consulting Physician Radiation Oncology 02/02/22 documented as of this encounter
--- OUTSIDE RECORDS SUMMARY | 2025-04-26 11:43 | XMS_ITS | Encounter Summary ---
Author Organization Healthcare Address [address] [place] [address] Care Team Providers Care Security Sales Consultant Name Role Phone Anselmo Montana MD Primary Care Provider [phone] Brett Gaming MD Unavailable [phone] Encounter Details Date Type Department Care Team (Late st Contact Info) Description 04/15/2024 Orders Only External Location [address] [place] [address] Provider, External Social History Tobacco Use Types [...] documented as of this encounter Care Teams Security Sales Consultant Relationship Specialty Start Date End Date Anselmo Montana MD [address] [place] [address] PCP - General 01/28/21 Brett Gaming MD 800 [facility] [address] [place] [address] Consulting Physician Radiation Oncology 02/02/22 documented as of this encounter
--- OUTSIDE RECORDS SUMMARY | 2025-04-26 11:43 | XMS_ITS | Clinical Summary ---
Author Organization Healthcare Address [address] [place] [address] Care Team Providers Care Green Marketing Specialist Name Role Phone Anselmo Montana MD Primary Care Provider [phone] Brett Gaming MD Unavailable [phone] Allergies Active Allergy Reactions Criticality Noted Date [...] DAILY FOR FLUID RETENTION 2 Active Tiotropium [place] Monohydrate (Spiriva Respimat) 2.5 MCG/ACT inhaler 2 [...] of 3 - PCV) 11/18/2021 11/18/2020, 11/20/2015 [id number] Vaccine ( season) 2024 07/27/2021, 10/25/2020, 09/23/2020 [...] to complete this topic Insurance [facility] MEDICARE [facility] MEDICARE Advance Directives * Full Code (Latest Code Status on File) Date Activated Date Inactivated Comments 06/04/2024 1:14 PM 06/04/2024 6:34 PM Question Answer Comments Patient has decision-making capacity? Yes Care Teams Green Marketing Specialist Relationship Specialty Start Date End Date Anselmo Montana MD [address] [facility] [address] [place] [address] PCP - General 01/28/21 Brett Gaming MD 800 [facility] [address] [place] [address] Consulting Physician Radiation Oncology 02/02/22
--- OUTSIDE RECORDS SUMMARY | 2025-04-26 11:43 | XMS_ITS | Encounter Summary ---
Author Organization Healthcare Address [address] [place] [address] Care Team Providers Care Crystal Flat Grinder Name Role Phone Anselmo Montana MD Primary Care Provider [phone] Brett Gaming MD Unavailable [phone] Encounter Details Date Type Department Care Team (Late st Contact Info) Description 12/01/2023 Orders Only External Location [address] [place] [address] Provider, External Social History Tobacco Use Types [...] documented as of this encounter Care Teams Crystal Flat Grinder Relationship Specialty Start Date End Date Anselmo Montana MD [address] [place] [address] PCP - General 01/28/21 Brett Gaming MD 800 [facility] [address] [place] [address] Consulting Physician Radiation Oncology 02/02/22 documented as of this encounter
[2025-04-26] MEDS: SODIUM CHLORIDE 0.9% 10ML FLUSH SYRINGE 10 ML IV (11:55)
[2025-04-26] MEDS: ERTAPENEM SODIUM 1 GM in 0.9 % SODIUM CHLORIDE 50 ML IV (11:55)
== END 2025-04-26 23:59 | disposition home or self-care (01) ==
LOC: INF 11:41
PROVIDERS: PCP Nurse Practitioner Family; Visit Provider Nurse Practitioner Family
DX: Z01.89 Encounter for other specified special examinations (principal)
CPT/HCPCS: 96365; J1335; J1642

== ENCOUNTER 2025-05-03 13:26 | Outpatient (CLI) | payer MEDICARE, SELFPAY ==
--- OUTSIDE RECORDS SUMMARY | 2025-05-03 13:28 | XMS_ITS ---
Author Organization Healthcare Address [address] [place] [address] Care Team Providers Care Mortgage Clerk Name Role Phone Anselmo Montana MD Primary Care Provider [phone] Brett Gaming MD Unavailable [phone] Active Problems Problem Noted Date Diagnosed Date [...]
--- OUTSIDE RECORDS SUMMARY | 2025-05-03 13:28 | XMS_ITS | Encounter Summary ---
Author Organization Healthcare Address [address] [place] [address] Care Team Providers Care Timber Sizer Name Role Phone Anselmo Montana MD Primary Care Provider [phone] Brett Gaming MD Unavailable [phone] Encounter Details Date Type Department Care Team (Late st Contact Info) Description 04/15/2024 Orders Only External Location [address] [place] [address] Provider, External Social History Tobacco Use Types [...] documented as of this encounter Care Teams Timber Sizer Relationship Specialty Start Date End Date Anselmo Montana MD [address] [place] [address] PCP - General 01/28/21 Brett Gaming MD [address] [facility] [address] [place] [address] Consulting Physician Radiation Oncology 02/02/22 documented as of this encounter
--- OUTSIDE RECORDS SUMMARY | 2025-05-03 13:28 | XMS_ITS | Clinical Summary ---
Author Organization Healthcare Address [address] [place] [address] Care Team Providers Care Manager Icu Name Role Phone Anselmo Montana MD Primary Care Provider [phone] Brett Gaming MD Unavailable [phone] Allergies Active Allergy Reactions Criticality Noted Date [...] DAILY FOR FLUID RETENTION 2 Active Tiotropium [place] Monohydrate (Spiriva Respimat) 2.5 MCG/ACT inhaler 2 [...] of 3 - PCV) 11/18/2021 11/18/2020, 11/20/2015 [id number] Vaccine ( season) 2024 07/27/2021, 10/25/2020, 09/23/2020 [...] patient's age to complete this topic Insurance [facility] MEDICARE [facility] MEDICARE Advance Directives * Full Code (Latest Code Status on File) Date Activated Date Inactivated Comments 06/04/2024 1:14 PM 06/04/2024 6:34 PM Question Answer Comments Patient has decision-making capacity? Yes Care Teams Manager Icu Relationship Specialty Start Date End Date Anselmo Montana MD [address] [facility] [address] [place] [address] PCP - General 01/28/21 Brett Gaming MD 800 [facility] [address] [place] [address] Consulting Physician Radiation Oncology 02/02/22
--- OUTSIDE RECORDS SUMMARY | 2025-05-03 13:28 | XMS_ITS | Encounter Summary ---
Author Organization Healthcare Address [address] [place] [address] Care Team Providers Care Security Intern Name Role Phone Anselmo Montana MD Primary Care Provider [phone] Brett Gaming MD Unavailable [phone] Encounter Details Date Type Department Care Team (Late st Contact Info) Description 04/08/2024 Orders Only External Location [address] [place] [address] Provider, External Social History Tobacco Use Types [...] as of this encounter Care Teams Security Intern Relationship Specialty Start Date End Date Anselmo Montana MD [address] [place] [address] PCP - General 01/28/21 Brett Gaming MD 800 [facility] [address] [place] [address] Consulting Physician Radiation Oncology 02/02/22 documented as of this encounter
--- OUTSIDE RECORDS SUMMARY | 2025-05-03 13:28 | XMS_ITS | Encounter Summary ---
Author Organization Healthcare Address [address] [place] [address] Care Team Providers Care Regional Flatbed Truck Driver Name Role Phone Anselmo Montana MD Primary Care Provider [phone] Brett Gaming MD Unavailable [phone] Encounter Details Date Type Department Care Team (Late st Contact Info) Description 12/01/2023 Orders Only External Location [address] [place] [address] Provider, External Social History Tobacco Use Types [...] documented as of this encounter Care Teams Regional Flatbed Truck Driver Relationship Specialty Start Date End Date Anselmo Montana MD [address] [place] [address] PCP - General 01/28/21 Brett Gaming MD [address] [facility] [address] [place] [address] Consulting Physician Radiation Oncology 02/02/22 documented as of this encounter
== END 2025-05-03 23:59 | disposition home or self-care (01) ==
PROVIDERS: PCP Nurse Practitioner Family; Visit Provider Nurse Practitioner Family
DX: N39.0 Urinary tract infection, site not specified (principal)
CPT/HCPCS: 87086

== ENCOUNTER 2025-05-07 13:08 | Outpatient (CLI) | payer MEDICARE, SELFPAY ==
--- OUTSIDE RECORDS SUMMARY | 2025-05-07 13:15 | XMS_ITS ---
Author Organization Healthcare Address [address] [place] [address] Care Team Providers Care Gang Miner Name Role Phone Anselmo Montana MD Primary Care Provider [phone] Brett Gaming MD Unavailable [phone] Active Problems Problem Noted Date Diagnosed Date [...]
--- OUTSIDE RECORDS SUMMARY | 2025-05-07 13:15 | XMS_ITS | Encounter Summary ---
Author Organization Healthcare Address [address] [place] [address] Care Team Providers Care Parimutuel Ticket Checker Name Role Phone Anselmo Montana MD Primary Care Provider [phone] Brett Gaming MD Unavailable [phone] Encounter Details Date Type Department Care Team (Late st Contact Info) Description 04/15/2024 Orders Only External Location [address] [place] [address] Provider, External Social History Tobacco Use Types [...] documented as of this encounter Care Teams Parimutuel Ticket Checker Relationship Specialty Start Date End Date Anselmo Montana MD [address] [place] [address] PCP - General 01/28/21 Brett Gaming MD 800 [facility] [address] [place] [address] Consulting Physician Radiation Oncology 02/02/22 documented as of this encounter
--- OUTSIDE RECORDS SUMMARY | 2025-05-07 13:15 | XMS_ITS | Clinical Summary ---
Author Organization Healthcare Address [address] [place] [address] Care Team Providers Care Organic Extractions Technician Name Role Phone Anselmo Montana MD Primary Care Provider [phone] Brett Gaming MD Unavailable [phone] Allergies Active Allergy Reactions Criticality Noted Date [...] DAILY FOR FLUID RETENTION 2 Active Tiotropium [place] Monohydrate (Spiriva Respimat) 2.5 MCG/ACT inhaler 2 [...] of 3 - PCV) 11/18/2021 11/18/2020, 11/20/2015 [id number] Vaccine ( season) 2024 07/27/2021, 10/25/2020, 09/23/2020 [...] patient's age to complete this topic Insurance [facility] MEDICARE [facility] Advance Directives * Full Code (Latest Code Status on File) Date Activated Date Inactivated Comments 06/04/2024 1:14 PM 06/04/2024 6:34 PM Question Answer Comments Patient has decision-making capacity? Yes Care Teams Organic Extractions Technician Relationship Specialty Start Date End Date Anselmo Montana MD [address] [facility] [address] [place] [address] PCP - General 01/28/21 Brett Gaming MD [address] [facility] [address] [place] [address] Consulting Physician Radiation Oncology 02/02/22
--- OUTSIDE RECORDS SUMMARY | 2025-05-07 13:15 | XMS_ITS | Encounter Summary ---
Author Organization Healthcare Address [address] [place] [address] Care Team Providers Care Lasting Machine Operator Name Role Phone Anselmo Montana MD Primary Care Provider [phone] Brett Gaming MD Unavailable [phone] Encounter Details Date Type Department Care Team (Late st Contact Info) Description 12/01/2023 Orders Only External Location [address] [place] [address] Provider, External Social History Tobacco Use Types [...] documented as of this encounter Care Teams Lasting Machine Operator Relationship Specialty Start Date End Date Anselmo Montana MD [address] [place] [address] PCP - General 01/28/21 Brett Gaming MD 800 [facility] [address] [place] [address] Consulting Physician Radiation Oncology 02/02/22 documented as of this encounter
--- OUTSIDE RECORDS SUMMARY | 2025-05-07 13:15 | XMS_ITS | Encounter Summary ---
Author Organization Healthcare Address [address] [place] [address] Care Team Providers Care Rejector Name Role Phone Anselmo Montana MD Primary Care Provider [phone] Brett Gaming MD Unavailable [phone] Encounter Details Date Type Department Care Team (Late st Contact Info) Description 04/08/2024 Orders Only External Location [address] [place] [address] Provider, External Social History Tobacco Use Types [...] documented as of this encounter Care Teams Rejector Relationship Specialty Start Date End Date Anselmo Montana MD [address] [place] [address] PCP - General 01/28/21 Brett Gaming MD [address] [facility] [address] [place] [address] Consulting Physician Radiation Oncology 02/02/22 documented as of this encounter
[2025-05-07 13:22] LABS: Hematocrit 29.5 % (37.0-47.0); Hemoglobin 10.0 g/dL (12.2-16.2); Immature Granulocytes % 2.9 %; Mean Corpuscular HGB Conc 33.9 g/dL (31.8-35.4); Mean Corpuscular Hemoglobin 34.0 pg (27.0-31.2); Mean Corpuscular Volume 100.3 fl (81-99); Nucleated Red Blood Cells % 0 %; Platelet Count 462 K/mm3 (142-424); Red Blood Count 2.94 M/mm3 (4.20-5.40); Red Cell Distribution Width-SD 48.7 fL; White Blood Count 12.7 K/mm3 (4.8-10.8)
[2025-05-07 13:32] LABS: Albumin Level 4.0 g/dl (3.5-5.0); Chloride 98 mmol/L (98-107)
[2025-05-07 13:33] LABS: Potassium 4.5 mmoL/L (3.5-5.1); Sodium 135 mmol/L (136-145)
[2025-05-07 13:35] LABS: Alanine Aminotransferase 25 U/L (12-78); Anion Gap 15.5 mEq/L (5-15); Aspartate Amino Transferase 32 U/L (14-36); Blood Urea Nitrogen 19 mg/dl (7-17); Carbon Dioxide 26 mmol/L (22.0-30.0); Creatinine,Serum 1.00 mg/dl (0.52-1.04); Estimated Glomerular Filt Rate 55 ml/min (>60); GFR (African American) 67 ML/MIN (>60)
[2025-05-07 13:36] LABS: Albumin/Globulin Ratio 1.4 (1.1-1.8); Alkaline Phosphatase 113 U/L (38-126); Bilirubin,Total 0.2 mg/dl (0.2-1.3); Calcium 9.7 mg/dl (8.4-10.2); Globulin 2.8 g/dL (1.3-3.2); Glucose 383 mg/dl (74-100); Total Protein,Serum 6.8 g/dl (6.3-8.2)
[2025-05-07 14:06] VITALS: BP 114/62; PULSE 73; RESP 20; TEMP 36.6; O2SAT 98
[2025-05-07] MEDS: PROCHLORPERAZINE 10MG TABLET 10 MG PO (14:06)
[2025-05-07 14:34] VITALS: BP 113/55; PULSE 73; RESP 20; O2SAT 97
[2025-05-07] MEDS: SODIUM CHLORIDE 0.9% IV (14:34)
[2025-05-07] MEDS: PEMETREXED DISODIUM IV (14:34)
[2025-05-07 14:55] VITALS: BP 112/52; PULSE 72; RESP 20; O2SAT 98
[2025-05-07] MEDS: SODIUM CHLORIDE 0.9% 10ML FLUSH SYRINGE 10 ML IV (14:55)
== END 2025-05-07 15:00 | disposition home or self-care (01) ==
LOC: INF 13:09
PROVIDERS: PCP Nurse Practitioner Family; Visit Provider Internal Medicine Medical Oncology
DX: C34.90 Malignant neoplasm of unspecified part of unspecified bronchus or lung (principal); Z51.11 Encounter for antineoplastic chemotherapy
CPT/HCPCS: 80053; 85025; 96409; J1642; J9305; Q0164

== ENCOUNTER 2025-05-28 12:39 | Outpatient (CLI) | payer MEDICARE, SELFPAY ==
[2025-05-28] MEDS: SODIUM CHLORIDE 0.9% 10ML FLUSH SYRINGE 10 ML IV (13:15)
[2025-05-28 13:28] LABS: Hematocrit 29.0 % (37.0-47.0); Hemoglobin 9.7 g/dL (12.2-16.2); Immature Granulocytes % 3.0 %; Mean Corpuscular HGB Conc 33.4 g/dL (31.8-35.4); Mean Corpuscular Hemoglobin 34.5 pg (27.0-31.2); Mean Corpuscular Volume 103.2 fl (81-99); Nucleated Red Blood Cells % 0 %; Platelet Count 407 K/mm3 (142-424); Red Blood Count 2.81 M/mm3 (4.20-5.40); Red Cell Distribution Width-SD 58.3 fL; White Blood Count 8.3 K/mm3 (4.8-10.8)
[2025-05-28 13:39] LABS: Chloride 104 mmol/L (98-107); Potassium 3.8 mmoL/L (3.5-5.1); Sodium 137 mmol/L (136-145)
[2025-05-28 13:42] LABS: Alanine Aminotransferase 21 U/L (12-78); Alkaline Phosphatase 95 U/L (38-126); Aspartate Amino Transferase 26 U/L (14-36); Bilirubin,Total 0.4 mg/dl (0.2-1.3); Blood Urea Nitrogen 14 mg/dl (7-17); Creatinine,Serum 0.80 mg/dl (0.52-1.04); Estimated Glomerular Filt Rate 71 ml/min (>60); GFR (African American) 86 ML/MIN (>60); Total Protein,Serum 6.2 g/dl (6.3-8.2)
[2025-05-28 13:43] LABS: Calcium 9.3 mg/dl (8.4-10.2); Glucose 243 mg/dl (74-100)
[2025-05-28 15:53] LABS: Anion Gap 10.8 mEq/L (5-15); Carbon Dioxide 26 mmol/L (22.0-30.0)
[2025-05-28 15:54] LABS: Albumin Level 3.6 g/dl (3.5-5.0); Albumin/Globulin Ratio 1.4 (1.1-1.8); Globulin 2.6 g/dL (1.3-3.2)
== END 2025-05-28 13:55 | disposition home or self-care (01) ==
LOC: INF 12:42
PROVIDERS: PCP Nurse Practitioner Family; Visit Provider Internal Medicine Medical Oncology
DX: C34.90 Malignant neoplasm of unspecified part of unspecified bronchus or lung (principal)
CPT/HCPCS: 36415; 80053; 85025; J1642

== ENCOUNTER 2025-05-29 11:13 | Outpatient (CLI) | payer MEDICARE, SELFPAY ==
--- NOTE | 2025-05-29 11:00 | CT_ITS ---
FINAL REPORT TECHNIQUE: Thin section axial images were obtained from the thoracic inlet through the upper abdomen after intravenous contrast injection. Reconstruction images were obtained from the axial data. Exam was performed using dose reduction technique. This study was performed with techniques to keep radiation doses as low as reasonably achievable (ALARA). Individualized dose reduction techniques using automated exposure control or adjustment of mA and/or kV according to the patient's size were employed. CLINICAL HISTORY: concern for tumor growth COMPARISON: 03/30/2025 FINDINGS: There is no mediastinal, hilar, or axillary lymphadenopathy. There is no pleural or pericardial effusion. There is a masslike opacity measuring 3.8 x 3.5 cm in the left upper lobe, was previously 3.7 x 3.7 cm on remeasurement, best seen on series 2 image 15. There is a cavitary component which is stable. There is a left lower lobe nodule measuring 8 mm, was previously 8 mm. A ground glass nodule in the right upper lobe on image 46 measures 10 mm, was previously 10 mm. There is a right upper lobe nodule which measures 10 mm, was previously 11 mm. A more superior right upper lobe nodule measures 10 mm, and was 10 mm remeasured, best seen on image #24. Changes of emphysema are noted. No new masses are identified. There is a subcentimeter hypodense lesion in the right lobe of the liver on image #79, stable, favor cyst. Several other additional tiny lesions are noted. There is a right adrenal nodule which measures 19 mm, was previously 16 mm. Remainder of the upper abdomen is without acute abnormality. No acute osseous abnormality. IMPRESSION: 1. Stable exam of the chest. There is no change in the left upper lobe masslike opacity or bilateral pulmonary nodules since the prior exam. 2. Stable to slight increase in size of right adrenal nodule compared to the prior exam. Reviewed, Interpreted and Dictated by Keila Jacobs MD Transcribed by Sonia Vazquez Authenticated and [facility]
--- OUTSIDE RECORDS SUMMARY | 2025-05-29 11:20 | XMS_ITS | Clinical Summary ---
Author Organization Healthcare Address [address] [place] [address] Care Team Providers Care Neuropsychologist Name Role Phone Anselmo Montana MD Primary Care Provider [phone] Brett Gaming MD Unavailable [phone] Allergies Active Allergy Reactions Criticality Noted Date [...] DAILY FOR FLUID RETENTION 2 Active Tiotropium [place] Monohydrate (Spiriva Respimat) 2.5 MCG/ACT inhaler 2 [...] Date Smoking Tobacco: Every Day Cigarettes 1.5 55.7 Started: 1970 Smokeless Tobacco: Never Tobacco Cessation:Ready [...] of 3 - PCV) 11/18/2021 11/18/2020, 11/20/2015 [id number] Vaccine ( season) 2025 07/27/2021, 10/25/2020, 09/23/2020 UKY-Influenza Vaccine (#1) 05/18/202505/29, [...] patient's age to complete this topic Insurance [facility] MEDICARE [facility] MEDICARE Advance Directives * Full Code (Latest Code Status on File) Date Activated Date Inactivated Comments 06/04/2024 1:14 PM 06/04/2024 6:34 PM Question Answer Comments Patient has decision-making capacity? Yes Care Teams Neuropsychologist Relationship Specialty Start Date End Date Anselmo Montana MD [address] [facility] [address] [place] [address] PCP - General 01/28/21 Brett Gaming MD [address] [facility] [address] [place] [address] Consulting Physician Radiation Oncology 02/02/22
--- OUTSIDE RECORDS SUMMARY | 2025-05-29 11:20 | XMS_ITS ---
Author Organization Healthcare Address [address] [place] [address] Care Team Providers Care Lithographic Proofer Name Role Phone Anselmo Montana MD Primary Care Provider [phone] Brett Gaming MD Unavailable [phone] Active Problems Problem Noted Date Diagnosed Date [...]
--- OUTSIDE RECORDS SUMMARY | 2025-05-29 11:21 | XMS_ITS | Encounter Summary ---
Author Organization Healthcare Address [address] [place] [address] Care Team Providers Care Cloth Stock Sorter Name Role Phone Anselmo Montana MD Primary Care Provider [phone] Brett Gaming MD Unavailable [phone] Encounter Details Date Type Department Care Team (Late st Contact Info) Description 12/01/2023 Orders Only External Location [address] [place] [address] Provider, External Social History Tobacco Use Types [...] documented as of this encounter Care Teams Cloth Stock Sorter Relationship Specialty Start Date End Date Anselmo Montana MD [address] [place] [address] PCP - General 01/28/21 Brett Gaming MD [address] [facility] [address] [place] [address] Consulting Physician Radiation Oncology 02/02/22 documented as of this encounter
--- OUTSIDE RECORDS SUMMARY | 2025-05-29 11:21 | XMS_ITS | Encounter Summary ---
Author Organization Healthcare Address [address] [place] [address] Care Team Providers Care Trench Digger Name Role Phone Anselmo Montana MD Primary Care Provider [phone] Brett Gaming MD Unavailable [phone] Encounter Details Date Type Department Care Team (Late st Contact Info) Description 04/15/2024 Orders Only External Location [address] [place] [address] Provider, External Social History Tobacco Use Types [...] documented as of this encounter Care Teams Trench Digger Relationship Specialty Start Date End Date Anselmo Montana MD [address] [place] [address] PCP - General 01/28/21 Brett Gaming MD [address] [facility] [address] [place] [id number] Consulting Physician Radiation Oncology 02/02/22 documented as of this encounter
--- OUTSIDE RECORDS SUMMARY | 2025-05-29 11:21 | XMS_ITS | Encounter Summary ---
Author Organization Healthcare Address [address] [place] [address] Care Team Providers Care Probation Manager Name Role Phone Anselmo Montana MD Primary Care Provider [phone] Brett Gaming MD Unavailable [phone] Encounter Details Date Type Department Care Team (Late st Contact Info) Description 04/08/2024 Orders Only External Location [address] [place] [address] Provider, External Social History Tobacco Use Types [...] documented as of this encounter Care Teams Probation Manager Relationship Specialty Start Date End Date Anselmo Montana MD [address] [place] [address] PCP - General 01/28/21 Brett Gaming MD [address] [facility] [address] [place] [phone] Consulting Physician Radiation Oncology 02/02/22 documented as of this encounter
[2025-05-29] MEDS: IOPAMIDOL-370 (76%);100ML BOTTLE 75 ML IV (11:44)
[2025-05-29] MEDS: SODIUM CHLORIDE 0.9% 10ML SYR (RAD ONLY) 10 ML IV (11:44)
== END 2025-05-29 23:59 | disposition home or self-care (01) ==
LOC: RAD 11:14
PROVIDERS: PCP Nurse Practitioner Family; Visit Provider Internal Medicine Medical Oncology
DX: C34.90 Malignant neoplasm of unspecified part of unspecified bronchus or lung (principal); E27.8 Other specified disorders of adrenal gland; R91.8 Other nonspecific abnormal finding of lung field
CPT/HCPCS: 71260; Q9967

== ENCOUNTER 2025-06-01 13:12 | Inpatient (IN) | payer MEDICARE, SELFPAY ==
[2025-06-01] VITALS (11 sets, daily range): BP systolic 135–162; BP diastolic 51–97; PULSE 76–104; RESP 15–22; TEMP 36.6–36.8; O2SAT 94–100; BMI 28.3
--- NOTE | 2025-06-01 13:09 | ECG_ITS ---
APPROVED REPORT Exam: Resting ECG HR:82 bpm ECG Measurements Heart Rate 82 AXES ID 163 P 91 QRSd 86 QRS 76 QT 381 T 118 QTc 420 Conclusion SINUS RHYTHM NONSPECIFIC ST & T-WAVE ABNORMALITY BORDERLINE ECG UNCONFIRMED REPORT Electronically signed by : Louie Simental, 06/01/2025 15:25:52
--- OUTSIDE RECORDS SUMMARY | 2025-06-01 13:17 | XMS_ITS | Encounter Summary ---
Author Organization Healthcare Address [address] [place] [address] Care Team Providers Care Sushi Chef Name Role Phone Anselmo Montana MD Primary Care Provider [phone] Brett Gaming MD Unavailable [phone] Encounter Details Date Type Department Care Team (Late st Contact Info) Description 12/01/2023 Orders Only External Location [address] [place] [address] Provider, External Social History Tobacco Use Types [...] documented as of this encounter Care Teams Sushi Chef Relationship Specialty Start Date End Date Anselmo Montana MD [address] [place] [address] PCP - General 01/28/21 Brett Gaming MD [address] [facility] [address] [place] [phone] Consulting Physician Radiation Oncology 02/02/22 documented as of this encounter
--- OUTSIDE RECORDS SUMMARY | 2025-06-01 13:17 | XMS_ITS ---
Author Organization Healthcare Address [address] [place] [address] Care Team Providers Care Cloth Napping Supervisor Name Role Phone Anselmo Montana MD Primary Care Provider [phone] Brett Gaming MD Unavailable Active Problems Problem Noted Date Diagnosed Date [...]
--- OUTSIDE RECORDS SUMMARY | 2025-06-01 13:17 | XMS_ITS | Encounter Summary ---
Author Organization Healthcare Address [address] [place] [address] Care Team Providers Care Alliance Consultant Name Role Phone Anselmo Montana MD Primary Care Provider [phone] Brett Gaming MD Unavailable [phone] Encounter Details Date Type Department Care Team (Late st Contact Info) Description 04/15/2024 Orders Only External Location [address] [place] [address] Provider, External Social History Tobacco Use Types [...] documented as of this encounter Care Teams Alliance Consultant Relationship Specialty Start Date End Date Anselmo Montana MD [address] [place] [address] PCP - General 01/28/21 Brett Gaming MD [address] [facility] [address] [place] [phone] Consulting Physician Radiation Oncology 02/02/22 documented as of this encounter
--- OUTSIDE RECORDS SUMMARY | 2025-06-01 13:17 | XMS_ITS | Encounter Summary ---
Author Organization Healthcare Address [address] [place] [address] Care Team Providers Care Physical Therapist Aide Name Role Phone Anselmo Montana MD Primary Care Provider [phone] Brett Gaming MD Unavailable [phone] Encounter Details Date Type Department Care Team (Late st Contact Info) Description 04/08/2024 Orders Only External Location [address] [place] [address] Provider, External Social History Tobacco Use Types [...] documented as of this encounter Care Teams Physical Therapist Aide Relationship Specialty Start Date End Date Anselmo Montana MD [address] [place] [address] PCP - General 01/28/21 Brett Gaming MD [address] [facility] [address] [place] [phone] Consulting Physician Radiation Oncology 02/02/22 documented as of this encounter
--- OUTSIDE RECORDS SUMMARY | 2025-06-01 13:17 | XMS_ITS | Clinical Summary ---
Author Organization Healthcare Address [address] [place] [address] Care Team Providers Care Basic Acoustic Analyst Name Role Phone Anselmo Montana MD Primary Care Provider [phone] Brett Gaming MD Unavailable [phone] Allergies Active Allergy Reactions Criticality Noted Date [...] DAILY FOR FLUID RETENTION 2 Active Tiotropium Adair Monohydrate (Spiriva Respimat) 2.5 MCG/ACT inhaler 2 [...] of 3 - PCV) 11/18/2021 11/18/2020, 11/20/2015 [id number] Vaccine ( season) 2025 07/27/2021, 10/25/2020, 09/23/2020 [...] patient's age to complete this topic Insurance [facility] MEDICARE [facility] MEDICARE Advance Directives * Full Code (Latest Code Status on File) Date Activated Date Inactivated Comments 06/04/2024 1:14 PM 06/04/2024 6:34 PM Question Answer Comments Patient has decision-making capacity? Yes Care Teams Basic Acoustic Analyst Relationship Specialty Start Date End Date Anselmo Montana MD [address] [facility] [address] [place] [address] PCP - General 01/28/21 Brett Gaming MD [address] [facility] [address] [place] [address] Consulting Physician Radiation Oncology 02/02/22
--- NOTE | 2025-06-01 13:20 | XR_ITS ---
FINAL REPORT TECHNIQUE: Single view chest CLINICAL HISTORY: SOA, worsening oxygen requirement COMPARISON: 04/22/2025 FINDINGS: A single view of the chest was obtained. The heart and mediastinum are within normal limits. There is a masslike density in the left lung apex corresponding to abnormality seen on recent CT. Lungs are otherwise clear. There is no pleural effusion. A right chest port terminates in the SVC. There is no pneumothorax. IMPRESSION: Masslike density at the left lung apex without focal consolidation. Reviewed, Interpreted and Dictated by Callum Armas MD Transcribed by Barbara Patel Authenticated and [facility]
--- NOTE | 2025-06-01 13:20 | CT_ITS ---
FINAL REPORT TECHNIQUE: Axial images were performed through the brain.This study was performed with techniques to keep radiation doses as low as reasonably achievable, (ALARA). Individualized dose reduction techniques using automated exposure control or adjustment of mA and/or kV according to the patient's size were employed. 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 Mild generalized atrophy and chronic ischemic white matter changes are noted. No cortical edema is present. There is no mass or hemorrhage. Ventricles are normal. 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 Bone windows show no skull fracture or obvious obstructive lesion. IMPRESSION: Chronic changes without acute process. Reviewed, Interpreted and Dictated by Callum Armas MD Transcribed by Stacy Hernández Authenticated and [facility]
--- NOTE | 2025-06-01 13:22 | CT_ITS ---
FINAL REPORT TECHNIQUE: Postcontrast axial images of the chest were performed in a CTA protocol. This study was performed with techniques to keep radiation doses as low as reasonably achievable, (ALARA). Individualized dose reduction technique using automated exposure control or adjustment of mA and/or kV according to the patient's size were employed. CLINICAL HISTORY: SOA, worsening oxygen requirement COMPARISON: 05/29/2025 FINDINGS: The heart is normal in size. No adenopathy is identified. No pleural or pericardial effusion is identified. The thoracic aorta is normal in caliber with no focal aneurysm or dissection identified. There is no filling defect to suggest pulmonary embolism. Left apical mass measuring up to 4 cm is stable. There are few other, subcentimeter, scattered and somewhat ill-defined peripheral nodular opacities which are somewhat ill-defined but stable. Findings could be inflammatory or neoplastic. The images of the upper abdomen are unremarkable. IMPRESSION: No evidence for PE on this exam. Redemonstration of left apical mass, unchanged. Scattered, small, subcentimeter nodules which may be infectious or neoplastic, unchanged from prior exam. Reviewed, Interpreted and Dictated by Callum Armas MD Transcribed by Barbara Patel Authenticated and [facility]
--- NOTE | 2025-06-01 13:23 | ED_ITS ---
<Statement entered by Garland iSmental MD - 06/03/25 13:54> I was consulted by the VIRGEN, and we discussed the complexity of the problems being addressed. I approved the treatment and management plan for this patient?s care in the Emergency Department, thus performing a substantive portion of the medical decision making Discharge Plan Disposition Patient Disposition: Admitted Condition: Good Clinical Impressions Clinical Impression: UTI (urinary tract infection) CHF (congestive heart failure) Qualifiers: Heart failure type: unspecified Heart failure chronicity: chronic Qualified Code(s): I50.9 - Heart failure, unspecified Lung cancer Qualifiers: Laterality: left Lung location: upper lobe of lung Qualified Code(s): C34.12 - Malignant neoplasm of upper lobe, left bronchus or lung AMS (altered mental status) Qualifiers: Altered mental status type: disorientation Qualified Code(s): R41.0 - Disorientation, unspecified Discharge ED Provider: Garland Simental HPI General Chief Complaint: Shortness of Breath/Dyspnea Stated Complaint: SOB Time Seen by Provider: 06/01/25 13:19 Mode of Arrival: EMS Source of Information: Patient and Relative Limitations: No Limitations History of Present Illness HPI narrative: 69-year-old female presents the emergency department via EMS accompanied by her family members, for 24 to 48-hour history of altered mental status and shortness of air, with worsening oxygen requirement. Patient's family members noted that days ago she became more confused and agitated , than normal, they believe that she has a UTI , patient battles frequent UTIs, with what appears to be Proteus and Klebsiella, patient requires 3 L nasal cannula only when sleeping , according to family numbers. 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 Initial triage vitals notable for tachycardia, patient is on 3 L nasal cannula patient is SpO2 is 95 to 96%. Patient is current everyday smoker, no history of alcohol or drug use, other past medical history is consistent with active lung malignancy with chemotherapy treatments every 3 weeks per pulmonology, CHF, OAB, adrenal mass, T2DM, CAD, COPD, PAD, hypertension, fibromyalgia, gout, pulmonary hypertension. Please note that above description of symptoms, in this electronic medical record under categorization of recalled from ER triage doctor by RN are reflective of an initial nursing assessment, however, is not reflective of my full history and physical exam that was personally taken and clarified. Consequentially, this preceding description of symptoms, which may include the patient's categorized chief complaint in the EMR, do not reflect my personal clinical impression, and the ultimate description of history of present illness and patient stated complaints should be deferred to this section of the note. Unless stated otherwise or congruent with this section of the note, additional signs, symptoms, or incongruence should be interpreted as inaccurate with my clinical impression. MD complaint: other Onset (ago): day(s) Related Data Home Medications ?Medication ?Instructions ?Recorded ?Confirmed atorvastatin 20 mg tablet 20 mg PO HS 90 days ##90 06/0405/28/25 cetirizine 10 mg tablet 10 mg PO DAILY Allergy sympt oms 30 10/26/17 05/28/25 days ##30 clopidogrel 75 mg tablet 75 mg PO DAILY 90 days ##90 10/26/17 05/28/25 aspirin 81 mg tablet,delayed 81 mg PO DAILY 05/06/18 0 05/28/25 release atenolol 25 mg tablet 25 mg PO DAILY 06/03/2005/18 escitalopram oxalate 5 mg tablet 5 mg PO DAILY 0 05/28/25 ipratropium 0.5 mg-albuterol 3 mg 3 ml inhalation QIDP PRN Shortness 05/03/22 05/28/25 (2.5 mg base)/3 mL nebulization Of Breath soln allopurinol 100 mg tablet 200 mg PO DAILY 12/27/2208/11 colchicine 0.6 mg tablet 0.6 mg PO DAILYP PRN GOUT 05/28/25 spironolactone 50 mg tablet 50 mg PO BID Fluid 5 05/28/25 estradiol 0.01% (0.1 mg/gram) 1 applic vaginal .TWICE WEEKLY 03/14/25 05/28/25 vaginal cream gabapentin 300 mg capsule 600 mg PO BID 03/14/2505/28 ondansetron 8 mg disintegrating 8 mg PO Q8HP PRN Nause a And 03/14/25 05/28/25 tablet Vomiting prochlorperazine maleate 10 mg 10 mg PO Q6HP PRN nause a and 03/14/25 05/28/25 tablet (Compazine) vomiting promethazine 25 mg tablet 25 mg PO TIDP PRN nausea and 03/14/25 05/28/25 vomiting pen needle, diabetic 31 gauge x #1,200 ea 04/02/2508/11 fluticasone propionate 50 intranasal 05/28/25 05/28/25 mcg/actuation nasal spray,suspension Previous Rx's ?Medication ?Instructions ?Recorded bumetanide 1 mg tablet 1 mg PO BIDL Fluid 30 days # 0 tabs 12/04/23 oxybutynin chloride 10 mg 10 mg PO DAILY #90 tabs 08/17 05/10 tablet,extended release 24 hr Ertapenem Sodium [Invanz 1gm Vial] 100 mls/hr IV Q24H 03/16/25 1 gm insulin glargine 100 unit/mL (3 40 unit (0.4 mL) SQ DA DANGELO #15 mL 03/16/25 mL) subcutaneous pen (Lantus Solostar U-100 Insulin) pen needle, diabetic 31 gauge x #100 ea 03/16/25/ sitagliptin phosphate 50 mg tablet 50 mg PO DAILYDM 30 days #30 tabs 03/16/25 (Januvia) dexamethasone 4 mg tablet 4 mg PO BID chemotherapy #36 tabs 04/03/25 folic acid 1 mg tablet 1 mg PO DAILY #30 tabs 04/03 Allergies Allergy/AdvReac Type Severity Reaction Status Date / Time Sulfa (Sulfonamide Allergy Unknown BLISTERING Verified 05/28/25 13:28 Antibiotics) OF THROAT levofloxacin (From Levaquin) Allergy BLISTERS Verified 05/28/25 13:28 IN THROAT PFSH [facility] Disclaimer: The information contained in this section may have been updated after the patient was seen, as this information can be updated by other users. Medical History Altered mental status Yeast vaginitis Hematuria Atrophic vaginitis Abscess of right thigh Trochanteric bursitis, left hip Delirium Closed fracture of greater trochanter of femur Fall Pneumonia with cavity of lung UTI (urinary tract infection) Sepsis COPD exacerbation Pneumonia CAP (community acquired pneumonia) Pre-op evaluation Pulmonary fungal infection Gout Smoking greater than 30 pack years COPD mixed type Multiple lung nodules on CT Fungal pneumonia Acute and chronic respiratory failure with hypoxia Intertrochanteric fracture of left hip Status post cephalomedullary nailing Closed left hip fracture Acute respiratory failure with hypoxia Pneumonia due to COVID-19 virus Diabetes mellitus Diastolic dysfunction HLD (hyperlipidemia) HTN (hypertension) Subclavian artery stenosis, left PAD (peripheral artery disease) Tobacco use History of placement of stent in LAD coronary artery CAD (coronary artery disease) APR 2022-Severe ostial mid left main disease as described Successful stenting of the ostial proximal mid distal left main artery reducing the stenosis to less than 10% giving excellent angiograph results Preserved ejection fraction Normal left ventricular end-diastolic pressure Persistent stenosis in a large posterior lateral branch which is best managed medically COPD (chronic obstructive pulmonary disease) ACUÑA (dyspnea on exertion) Surgical History History of hysterectomy History of hip surgery Hx of right coronary artery stent placement Family History Other Asthma Cancer Diabetes Hypertension Social History Smoking Status: Current every day smoker tobacco type: cigarettes packs per day: 1 second hand exposure: No alcohol intake: never substance use type: denies use current occupational status: disabled Travel in the last 8 weeks?: None household members: none housing: house current occupational exposures/hazards: No caffeine: Yes Have you lived/traveled outside [place] in past 30 days?: No Contact w/someone who lives/traveled outside [place] past 30 days?: No Exposure to someone with infectious disease in past 14 days?: No Do you have a fever (greater than 100.4 F or 38 C)?: No Have you tested positive for COVID-19?: No Exposed to someone with COVID-19 in past 14 days?: No Do you have a sore throat?: No Do you have a cough?: No Do you have any weakness?: No Do you have any diarrhea?: No Are you experiencing any unusual bleeding?: No Do you have any muscle aches/pain?: No Do you have any abdominal pain?: No Are you experiencing loss of taste or smell?: No Other Medical History Have you received the Flu Vaccine for this season: No Have you received the Pneumonia Vaccine: Yes ROS Obtained: Yes All systems reviewed & no additional complaints except as documented Physical Exam General General appearance: alert and in no apparent distress Comment: Alert oriented to person place some disorientation about time Head Head exam: atraumatic and normocephalic Eye Eye exam: Present PERRL and EOMI ENT ENT exam: Present mucous membranes moist Neck Neck exam: Present normal inspection Chest Chest inspection: Present normal inspection and symmetric chest wall rise Respiratory Respiratory exam: Present wheezes and other (Wheezes noted throughout bilateral lung brizuela mild in nature); Absent normal lung sounds bilaterally or respiratory distress Cardiovascular Cardiovascular exam: Present regular rate and normal rhythm Abdominal Exam Abdominal exam: Present soft; Absent tenderness, guarding, rebound or rigidity Extremities Exam Extremities exam: Present normal inspection Neurological Exam Neurological exam: Present alert and other (Alert oriented to person and place, GCS of 14-15, some disorientation about time, otherwise moves extremities command, no gross sensation deficit); Absent oriented X3 Psychiatric Psychiatric exam: Present normal affect Skin Skin exam: Present warm and dry HEART Score HEART Score HEART Score assessment performed?: No Critical Care Critical Care Time Critical Care Time: No Medical Decision Making Medical Records Medical records reviewed: Yes I reviewed the patient's medical records. Micheal Inquiry Pt receiving controlled substance: No Micheal was queried for this patient: No Vital Signs Vital Signs: 06/01/25 13:07 06/01/25 13:31 06/01/25 14:00 Temperature 97.9 F Temperature Source Oral Pulse Rate 76 Pulse Rate [Left Radial] 100 H Respiratory Rate 15 20 Blood Pressure 135/51 L 154/91 H Blood Pressure [Right Arm] 156/97 H Blood Pressure Mean 98 112 Blood Pressure Mean [Right Arm] 116 Blood Pressure Source [Right Arm] Automatic Cuff Blood Pressure Position [Right Arm] Sitting 02 Sat by Pulse Oximetry 94 L 99 99 Oxygen Delivery Method Room Air Oxygen Flow Rate (LPM) 06/01/25 14:30 06/01/25 15:01 06/01/25 15:31 Temperature Temperature Source Pulse Rate Pulse Rate [Left Radial] Respiratory Rate 21 22 Blood Pressure 162/90 H 138/59 L 137/71 Blood Pressure [Right Arm] Blood Pressure Mean 114 109 Blood Pressure Mean [Right Arm] Blood Pressure Source [Right Arm] Blood Pressure Position [Right Arm] 02 Sat by Pulse Oximetry 99 99 Oxygen Delivery Method Oxygen Flow Rate (LPM) 06/01/25 16:01 06/01/25 16:31 06/01/25 18:19 Temperature 97.9 F Temperature Source Pulse Rate 82 93 H 85 Pulse Rate [Left Radial] Respiratory Rate 22 20 18 Blood Pressure 150/89 H 153/71 H 157/96 H Blood Pressure [Right Arm] Blood Pressure Mean 109 89 Blood Pressure Mean [Right Arm] Blood Pressure Source [Right Arm] Blood Pressure Position [Right Arm] 02 Sat by Pulse Oximetry 98 98 Oxygen Delivery Method Nasal Cannula Oxygen Flow Rate (LPM) 2 Lab Data Lab results reviewed: Yes I reviewed the patient's lab results. Labs: Lab Results 06/01/25 13:08: WBC 13.4 H, RBC 3.67 L, Hgb 12.3, Hct 36.8 L, MCV 100.3 H, MCH 33.5 H, MCHC 33.4, RDW 15.9, Plt Count 434 H, MPV 10.5 H, Neut % (Auto) 68.8, Lymph % (Auto) 11.0, [place] % (Auto) 13.9 H, Eos % (Auto) 0.3, Baso % (Auto) 0.5, Neut # (Auto) 9.2 H, Lymph # (Auto) 1.5, [place] # (Auto) 1.9 H, Eos # (Auto) 0.0, Baso # (Auto) 0.1, Total Counted 100, Neutrophils % (Manual) 79 H, Band Neutrophils % 1.0, Lymphocytes % (Manual) 5 L, Monocytes % (Manual) 14 H, Eosinophils % (Manual) 1, Platelet Estimate Normal, RBC Morphology Normal, S odium 134 L, Potassium 4.2, Chloride 98, Carbon Dioxide 28, Anion Gap 12.2, BUN 28 H, Creatinine 1.00, Estimated GFR 55 L, Est GFR ( Amer) 67, Glucose 295 H, Calcium 9.9, Magnesium 1.9, Total Bilirubin 0.6, AST 34, ALT 27, Alkaline Phosphatase 108, Troponin I 0.02, NT-Pro-B Natriuret Pep 83147 H, Total Protein 7.5, Albumin 4.4, Globulin 3.1, Albumin/Globulin Ratio 1.4 06/01/25 15:08: SARS-CoV-2 (PCR) Not detected, Influenza A Untype (PCR) Not detected, Influenza Type B (PCR) Not detected 06/01/25 15:52: Troponin I 0.02 06/01/25 15:55: VBG pH 7.38, VBG pCO2 53.5 H, VBG pO2 33.0, VBG HCO3 30.9 H, VBG Total CO2 32.5 H, VBG O2 Saturation 59.7, VBG Base Excess 5.7 H, VBG Lactic Acid 1.9 06/01/25 17:05: Urine Color Yellow, Urine Appearance Slightly cloudy, Urine pH 6.0, Ur Specific [place] 1.015, Urine Protein Trace, Urine Glucose (UA) 1+, Urine Ketones Negative, Urine Blood Negative, Urine Nitrate Positive A, Urine Bilirubin Negative, Urine Urobilinogen 0.2, Ur Leukocyte Esterase Negative, Urine RBC None, Urine WBC 10-20, Ur Squamous Epith Cells 10-20, Urine Bacteria 4+ 06/01/25 13:08 06/01/25 13:08 Response Orders (Tests/Meds): ED MEDICATIONS Discontinued Medications Generic Name Dose Route Start Last Admin Trade Name Freq PRN Reason Stop Dose Admin Ceftriaxone Sodium 1 gm/ 50 mls @ 100 mls/hr 06/01/25 17:22 06/01/25 18:29 Sodium Chloride IV 06/01/25 17:51 Infused ONCE ONE Infusion Iopamidol 80 ml 06/01/25 13:50 06/01/25 13:51 Iopamidol-370 (76%);100ml Bottle IV 06/01/25 13:51 80 ml ONCE ONE Administration Sodium Chloride 10 ml 06/01/25 13:50 06/01/25 13:51 Sodium Chloride 0.9% 10ml Syr (Rad Only) IV 06/01/25 13:51 10 ml ONCE ONE Administration Sodium Chloride 50 ml 06/01/25 13:50 06/01/25 13:51 0.9 % Sodium Chloride 50 Ml Vial IV 06/01/25 13:51 50 ml ONCE ONE Administration ORDERS Category Date Time Status CT angio chest PE protocol Stat Cat Scan 06/01/25 13:[address] head/brain wo con Stat Cat Scan 06/01/25 13:20 Completed XR chest portable Stat Exams 06/01/25 13:20 Completed Complete Blood Count Auto Diff Stat Lab 06/01/25 13:08 Completed Comprehensive Metabolic Panel Stat Lab 06/01/25 13:08 Completed Magnesium Stat Lab 06/01/25 13:08 Completed NT Pro Brain Natriuretic Pep. Stat Lab 06/01/25 13:08 Completed Rapid PCR Covid and Flu A/B Stat Lab 06/01/25 15:08 Completed Troponin I Q3H Lab 06/01/25 15:52 Completed Troponin I Q3H Lab 06/01/25 19:30 Ordered Troponin I Stat Lab 06/01/25 13:08 Completed Urinalysis and Microscopic Stat Lab 06/01/25 17:05 Completed Urine Culture Stat Micro 06/01/25 17:05 Received VBG [Venous Blood Gas] Stat RT 06/01/25 15:55 Completed MDM Narrative Medical Decision Narrative: 69-year-old female presents to the emergency department with altered mental status shortness of breath, for the last 2 days, differential diagnosis include but not limited to, cardiac arrhythmia, electrolyte disturbance, PE, pneumonia, acute UTI, acute pyelonephritis, acute CHF exacerbation, COPD exacerbation, acute URI, acute bronchitis, pneumothorax, malignancy, JUVE, delirium among others. I discussed this patient's case with attending physician Will obtain basic labs, magnesium level proBNP troponin, UA, VBG, PCR COVID flu, EKG, chest x-ray, CT head without contrast, CTA chest with without contrast PE protocol. CBC notable for leukocytosis at 13.4, PCP elevated at 100.3, appears within baseline anemia, thrombocytosis of 434 otherwise unremarkable CBC BUN is elevated at 28, otherwise unremarkable CMP Troponin is 0.02, proBNP is significantly elevated at 10,500 I reviewed the patient's chest x-ray along the corresponding radiologic report, masslike density of the left lung apex without focal consolidation I reviewed the patient's CT head without contrast along the corresponding radiologic report, chronic changes without acute process. I reviewed the patient's CTA chest with and without contrast PE protocol, no evidence for PE on this exam redemonstration of left apical mass unchanged, scattered small subseen or nodules which may be infectious or neoplastic unchanged from prior exam. COVID-19 and influenza A are negative via PCR VBG is notable for normal pH, minimal elevation in pCO2 of 53.5, bicarb is minimally elevated at 30.9, otherwise unremarkable VBG Repeat troponin is unchanged UA is notable for nitrites, negative leukocyte esterase. Will give the patient 1 g IV ceftriaxone for urinary tract infection, I looked at the patient's previous culture and sensitivity, performed in April 2025, show susceptibility to ceftriaxone, previously grew Proteus. I discussed this patient's case with the hospitalist physician at approximately 5:25 PM, he is in agreement with the current admission plan/treatment plan for acute UTI/altered mental status, also in the setting of worsening oxygen requirement in the setting of known lung malignancy. I discussed this recommendation for admission with the patient's family at the bedside patient's family in agreement with the current treatment plan/admission plan.
[2025-06-01 13:29] LABS: Hematocrit 36.8 % (37.0-47.0); Hemoglobin 12.3 g/dL (12.2-16.2); Immature Granulocytes % 5.5 %; Mean Corpuscular HGB Conc 33.4 g/dL (31.8-35.4); Mean Corpuscular Hemoglobin 33.5 pg (27.0-31.2); Mean Corpuscular Volume 100.3 fl (81-99); Nucleated Red Blood Cells % 0 %; Platelet Count 434 K/mm3 (142-424); Red Blood Count 3.67 M/mm3 (4.20-5.40); Red Cell Distribution Width-SD 58.0 fL; White Blood Count 13.4 K/mm3 (4.8-10.8)
[2025-06-01 13:38] LABS: Alanine Aminotransferase 27 U/L (12-78); Albumin Level 4.4 g/dl (3.5-5.0); Albumin/Globulin Ratio 1.4 (1.1-1.8); Alkaline Phosphatase 108 U/L (38-126); Anion Gap 12.2 mEq/L (5-15); Aspartate Amino Transferase 34 U/L (14-36); Bilirubin,Total 0.6 mg/dl (0.2-1.3); Blood Urea Nitrogen 28 mg/dl (7-17); Calcium 9.9 mg/dl (8.4-10.2); Carbon Dioxide 28 mmol/L (22.0-30.0); Chloride 98 mmol/L (98-107); Creatinine,Serum 1.00 mg/dl (0.52-1.04); Estimated Glomerular Filt Rate 55 ml/min (>60); GFR (African American) 67 ML/MIN (>60); Globulin 3.1 g/dL (1.3-3.2); Glucose 295 mg/dl (74-100); Magnesium 1.9 mg/dl (1.6-2.3); Potassium 4.2 mmoL/L (3.5-5.1); Sodium 134 mmol/L (136-145); Total Protein,Serum 7.5 g/dl (6.3-8.2)
[2025-06-01 13:50] LABS: NT Pro Brain Natriuretic Pep. 10500 pg/mL (0-125); Troponin I 0.02 ng/ml (0.00-0.034)
[2025-06-01] MEDS: IOPAMIDOL-370 (76%);100ML BOTTLE 80 ML IV (13:51)
[2025-06-01] MEDS: 0.9 % SODIUM CHLORIDE 50 ML VIAL IV (13:51)
[2025-06-01] MEDS: SODIUM CHLORIDE 0.9% 10ML SYR (RAD ONLY) 10 ML IV ×2 (13:51→21:52)
[2025-06-01 14:06] LABS: RBC Morphology Normal; Total Cells Counted 100
[2025-06-01 15:13] LABS: Coronavirus 19, PCR Not Detected (NotDetected); Influenza A, PCR Not Detected (NotDetected); Influenza B, PCR Not Detected (NotDetected)
[2025-06-01 16:00] LABS: Lactate Venous 1.9 mmol/L (0.4-2.0); VBG HCO3 30.9 mmol/L (23-30); VBG PH 7.38 mmol/L (7.31-7.41); VBG PO2 33.0 mmol/L (28-40)
[2025-06-01 16:04] LABS: VBG PCO2 53.5 mmol/L (35-51)
--- NOTE | 2025-06-01 16:04 | INFXCTL.NOTE ---
Sara TURCIOS notified of pCO2 53.5 and pH 7.38.
[2025-06-01 16:21] LABS: Troponin I 0.02 ng/ml (0.00-0.034)
[2025-06-01 17:10] LABS: Microscopic, Urine URINE MICROSCOPIC (MICROSCOPIC)
[2025-06-01 17:12] LABS: Bilirubin,Urine Negative (Negative); Color,Urine YELLOW (Yellow); Glucose,Urine (UA) 1+ (Negative); Ketones,Urine Negative (Negative); Leukocyte Esterase,Urine Negative (Negative); PH,Urine 6.0 (5.0-8.5); Protein,Urine TRACE (Negative); Specific Gravity, Urine 1.015 (1.005-1.030); Urobilinogen,Urine 0.2 EU/dl (0.2)
--- NOTE | 2025-06-01 17:44 | PC.NURSE ---
Report called to YOAV Lizama.
[2025-06-01 18:09] LABS: Bacteria,Urine 4+ /lpf
--- NOTE | 2025-06-01 18:20 | PC.NURSE ---
arrived by stretcher from ED
--- NOTE | 2025-06-01 18:25 | EXP.HP ---
[facility] Disclaimer: The information contained in this section may have been updated after the patient was seen, as this information can be updated by other users. Medical History Altered mental status Yeast vaginitis Hematuria Atrophic vaginitis Abscess of right thigh Trochanteric bursitis, left hip Delirium Closed fracture of greater trochanter of femur Fall Pneumonia with cavity of lung UTI (urinary tract infection) Sepsis COPD exacerbation Pneumonia CAP (community acquired pneumonia) Pre-op evaluation Pulmonary fungal infection Gout Smoking greater than 30 pack years COPD mixed type Multiple lung nodules on CT Fungal pneumonia Acute and chronic respiratory failure with hypoxia Intertrochanteric fracture of left hip Status post cephalomedullary nailing Closed left hip fracture Acute respiratory failure with hypoxia Pneumonia due to COVID-19 virus Diabetes mellitus Diastolic dysfunction HLD (hyperlipidemia) HTN (hypertension) Subclavian artery stenosis, left PAD (peripheral artery disease) Tobacco use History of placement of stent in LAD coronary artery CAD (coronary artery disease) APR 2022-Severe ostial mid left main disease as described Successful stenting of the ostial proximal mid distal left main artery reducing the stenosis to less than 10% giving excellent angiograph results Preserved ejection fraction Normal left ventricular end-diastolic pressure Persistent stenosis in a large posterior lateral branch which is best managed medically COPD (chronic obstructive pulmonary disease) ACUÑA (dyspnea on exertion) Surgical History History of hysterectomy History of hip surgery Hx of right coronary artery stent placement Family History Other Asthma Cancer Diabetes Hypertension Social History Smoking Status: Smoker, status unknown tobacco type: cigarettes packs per day: 1 second hand exposure: No alcohol intake: never substance use type: denies use current occupational status: disabled Travel in the last 8 weeks?: None household members: none housing: house current occupational exposures/hazards: No caffeine: Yes Have you lived/traveled outside US in past 30 days?: No Contact w/someone who lives/traveled outside US past 30 days?: No Exposure to someone with infectious disease in past 14 days?: No Do you have a fever (greater than 100.4 F or 38 C)?: No Have you tested positive for COVID-19?: No Exposed to someone with COVID-19 in past 14 days?: No Do you have a sore throat?: No Do you have a cough?: No Do you have any weakness?: No Do you have any diarrhea?: No Are you experiencing any unusual bleeding?: No Do you have any muscle aches/pain?: No Do you have any abdominal pain?: No Are you experiencing loss of taste or smell?: No Other Medical History Have you received the Flu Vaccine for this season: No Have you received the Pneumonia Vaccine: Yes Meds Home Medications and Allergies Home Medications ?Medication ?Instructions ?Recorded ?Confirmed ?Type atorvastatin 20 mg tablet 20 mg PO HS 90 days ##90 10/26/17 05/28/25 History cetirizine 10 mg tablet 10 mg PO DAILY Allergy symptoms 30 10/26/17 05/28/25 History days ##30 clopidogrel 75 mg tablet 75 mg PO DAILY 90 days ##90 10/26/17 05/28/25 History aspirin 81 mg tablet,delayed 81 mg PO DAILY 05/06/18 05/28/25 History release atenolol 25 mg tablet 25 mg PO DAILY 06/03/20 05/28/25 History escitalopram oxalate 5 mg tablet 5 mg PO DAILY 06/03/20 05/28/25 History ipratropium 0.5 mg-albuterol 3 mg 3 ml inhalation QIDP PRN Shortness 05/03/22 05/28/25 History (2.5 mg base)/3 mL nebulization Of Breath soln allopurinol 100 mg tablet 200 mg PO DAILY 12/27/22 05/28/25 History bumetanide 1 mg tablet 1 mg PO BIDL Fluid 30 days #0 tabs 12/04/23 05/28/25 Rx colchicine 0.6 mg tablet 0.6 mg PO DAILYP PRN GOUT 02/17/24 05/28/25 History oxybutynin chloride 10 mg 10 mg PO DAILY #90 tabs 09/03/24 05/28/25 Rx tablet,extended release 24 hr spironolactone 50 mg tablet 50 mg PO BID Fluid 01/08/25 05/28/25 History estradiol 0.01% (0.1 mg/gram) 1 applic vaginal .TWICE WEEKLY 03/14/25 05/28/25 History vaginal cream gabapentin 300 mg capsule 600 mg PO BID 03/14/25 05/28/25 History ondansetron 8 mg disintegrating 8 mg PO Q8HP PRN Nausea And 03/14/25 05/28/25 History tablet Vomiting prochlorperazine maleate 10 mg 10 mg PO Q6HP PRN nausea and 03/14/25 05/28/25 History tablet (Compazine) vomiting promethazine 25 mg tablet 25 mg PO TIDP PRN nausea and 03/14/25 05/28/25 History vomiting Ertapenem Sodium [Invanz 1gm Vial] 100 mls/hr IV Q24H 03/16/25 05/28/25 Rx 1 gm insulin glargine 100 unit/mL (3 40 unit (0.4 mL) SQ DAILY #15 mL 03/16/25 05/28/25 Rx mL) subcutaneous pen (Lantus Solostar U-100 Insulin) pen needle, diabetic 31 gauge x #100 ea 03/16/25 05/28/25 Rx 1/4 sitagliptin phosphate 50 mg tablet 50 mg PO DAILYDM 30 days #30 tabs 03/16/25 05/28/25 Rx (Januvia) pen needle, diabetic 31 gauge x #1,200 ea 04/02/25 05/28/25 History 3/16 dexamethasone 4 mg tablet 4 mg PO BID chemotherapy #36 tabs 04/03/25 05/28/25 Rx folic acid 1 mg tablet 1 mg PO DAILY #30 tabs 04/03/25 05/28/25 Rx fluticasone propionate 50 intranasal 05/28/25 05/28/25 History mcg/actuation nasal spray,suspension New Prescriptions to Start Prescriptions: Allergies Allergy/AdvReac Type Severity Reaction Status Date / Time Sulfa (Sulfonamide Allergy Unknown BLISTERING Verified 05/28/25 13:28 Antibiotics) OF THROAT levofloxacin (From Levaquin) Allergy BLISTERS Verified 05/28/25 13:28 IN THROAT Exam Data for Last 24 hours Vital signs and Labs for Last 24 Hours: Temp Pulse Resp BP Pulse Ox O2 Del Method 97.9 F 93 H 20 153/71 H 98 Room Air 06/01/25 13:07 06/01/25 16:31 06/01/25 16:31 06/01/25 16:31 06/01/25 16:31 06/01/25 13:07 Laboratory Results - last 24 hr 06/01/25 13:08: WBC 13.4 H, RBC 3.67 L, Hgb 12.3, Hct 36.8 L, MCV 100.3 H, MCH 33.5 H, MCHC 33.4, RDW 15.9, Plt Count 434 H, MPV 10.5 H, Neut % (Auto) 68.8, Lymph % (Auto) 11.0, [place] % (Auto) 13.9 H, Eos % (Auto) 0.3, Baso % (Auto) 0.5, Neut # (Auto) 9.2 H, Lymph # (Auto) 1.5, [place] # (Auto) 1.9 H, Eos # (Auto) 0.0, Baso # (Auto) 0.1, Total Counted 100, Neutrophils % (Manual) 79 H, Band Neutrophils % 1.0, Lymphocytes % (Manual) 5 L, Monocytes % (Manual) 14 H, Eosinophils % (Manual) 1, Platelet Estimate Normal, RBC Morphology Normal, Sodium 134 L, Potassium 4.2, Chloride 98, Carbon Dioxide 28, Anion Gap 12.2, BUN 28 H, Creatinine 1.00, Estimated GFR 55 L, Est GFR ( Amer) 67, Glucose 295 H, Calcium 9.9, Magnesium 1.9, Total Bilirubin 0.6, AST 34, ALT 27, Alkaline Phosphatase 108, Troponin I 0.02, NT-Pro-B Natriuret Pep 11037 H, Total Protein 7.5, Albumin 4.4, Globulin 3.1, Albumin/Globulin Ratio 1.4 06/01/25 15:08: SARS-CoV-2 (PCR) Not detected, Influenza A Untype (PCR) Not detected, Influenza Type B (PCR) Not detected 06/01/25 15:52: Troponin I 0.02 06/01/25 15:55: VBG pH 7.38, VBG pCO2 53.5 H, VBG pO2 33.0, VBG HCO3 30.9 H, VBG Total CO2 32.5 H, VBG O2 Saturation 59.7, VBG Base Excess 5.7 H, VBG Lactic Acid 1.9 06/01/25 17:05: Urine Color Yellow, Urine Appearance Slightly cloudy, Urine pH 6.0, Ur Specific [place] 1.015, Urine Protein Trace, Urine Glucose (UA) 1+, Urine Ketones Negative, Urine Blood Negative, Urine Nitrate Positive A, Urine Bilirubin Negative, Urine Urobilinogen 0.2, Ur Leukocyte Esterase Negative, Urine RBC None, Urine WBC 10-20, Ur Squamous Epith Cells 10-20, Urine Bacteria 4+ I & O for Last 24 hours: Intake & Output 05/29/25 05/30/25 05/31/25 06/01/25 23:59 23:59 23:59 23:59 Weight 70.307 kg
[2025-06-01] MEDS: SODIUM CHLORIDE 0.9% 25ML BAG 25 ML IV (18:40)
[2025-06-01] MEDS: PROMETHAZINE HCL 25MG/ML 1ML VIAL 25 MG IV (18:40)
--- NOTE | 2025-06-01 19:24 | CT_ITS ---
PROCEDURE INFORMATION: Exam: CT Abdomen And Pelvis With Contrast Exam date and time: 06/01/2025 9:49 PM Age: 69 years old Clinical indication: Abdominal pain TECHNIQUE: Imaging protocol: Computed tomography of the abdomen and pelvis with contrast. Radiation optimization: All CT scans at this facility use at least one of these dose optimization techniques: automated exposure control; mA and/or kV adjustment per patient size (includes targeted exams where dose is matched to clinical indication); or iterative reconstruction. Contrast material: ISOVUE; Contrast volume: 75 ml; Contrast route: IV; COMPARISON: CT ABDOMEN PELVIS W CON 03/30/2025 1:26 PM FINDINGS: Lungs: Lung bases are clear. Esophagus: The esophagus is normal. Liver: Scattered subcentimeter hypodense lesions in the liver are unchanged from the prior exam and may represent cysts. Gallbladder and biliary ducts: The gallbladder is normal. Pancreas: Pancreas appears normal. Spleen: Spleen is normal Adrenal glands: Stable right adrenal nodule measuring 19 x 14 mm. There is a separate fatty lesion in the right adrenal gland measuring 18 mm which is stable compared with the previous study. Prominent anterior leaflet of the left adrenal gland image 12/12; similar to the prior exam. Kidneys and ureters: The kidneys are normal. Stomach and bowel: Scattered colonic diverticula especially in the sigmoid colon. Nonspecific bowel gas pattern. Retained stool in the colon. The stomach is normal. Appendix: A normal appendix is identified. Intraperitoneal space: Unremarkable. No free air. No significant fluid collection. Vasculature: Infrarenal abdominal aortic aneurysm with extensive mural thrombus seen measuring 2.9 cm; similar in diameter to the prior exam. The extent of mural thrombus is increased compared with the previous exam image . The aorta demonstrates moderate atherosclerotic calcification. Visceral arteries are patent. Portal vein, splenic vein, SMV are patent. Lymph nodes: No free air or fluid or adenopathy. Urinary bladder: Air-fluid level in the urinary bladder. Recommend clinical correlation for any recent instrumentation. Reproductive: There has been a hysterectomy. Bones/joints: IM sasha fixation and compression screw fixation left hip spray artifact. The lumbar spine demonstrates moderate degenerative changes at multiple levels. Severe facet arthropathy L4-L5 and L5-S1. Soft tissues: Unremarkable. IMPRESSION: 1. No free air or fluid or adenopathy. 2. Scattered colonic diverticula especially in the sigmoid colon. 3. Nonspecific bowel gas pattern. 4. Retained stool in the colon. 5. A normal appendix is identified. 6. Scattered subcentimeter hypodense lesions in the liver are unchanged from the prior exam and may represent cysts. 7. Stable right adrenal nodule measuring 19 x 14 mm. 8. There is a separate fatty lesion in the right adrenal gland measuring 18 mm which is stable compared with the previous study. 9. Prominent anterior leaflet of the left adrenal gland image 12/12; similar to the prior exam. 10. Infrarenal abdominal aortic aneurysm with extensive mural thrombus seen measuring 2.9 cm; similar in diameter to the prior exam. The extent of mural thrombus is increased compared with the previous exam image . Etiology uncertain. 11. The aorta demonstrates moderate atherosclerotic calcification. 12. Severe facet arthropathy L4-L5 and L5-S1. Probable concomitant spinal stenosis at L4-L5 . 13. Air-fluid level in the urinary bladder. Recommend clinical correlation for any recent instrumentation.
--- NOTE | 2025-06-01 19:28 | EXP.HP ---
History of Present Illness *Admission Date: 06/01/25 *Reason for visit:: AMS, shortness of breath *History of present illness: Carolina Rivers is a 69-year-old female with a medical history significant for lung adenocarcinoma, COPD on 2 to 3 L baseline, HFpEF with G2 DD, type 2 diabetes with neuropathy, CAD, anxiety/depression presents with reported altered mental status and shortness of breath. On my evaluation, patient looked distressed but could not pinpoint a specific symptoms. She states she is not feeling well. On further inquiry, she states that she has been having abdominal pain, increased urinary frequency shortness of breath, but no chest pain. Her last chemo infusion was reportedly on 05/21 for lung adenocarcinoma. Follows with Dr. Morrow. Workup in the ED significant for WBC 13.4, BNP 10,500, UA grossly abnormal, mini respiratory panel negative. She was given IV ceftriaxone 1 g. Given these findings ED provider discussed case with manage decided to admit patient for acute metabolic encephalopathy, UTI, and HFpEF exacerbation. [facility] Disclaimer: The information contained in this section may have been updated after the patient was seen, as this information can be updated by other users. Medical History Altered mental status Yeast vaginitis Hematuria Atrophic vaginitis Abscess of right thigh Trochanteric bursitis, left hip Delirium Closed fracture of greater trochanter of femur Fall Pneumonia with cavity of lung UTI (urinary tract infection) Sepsis COPD exacerbation Pneumonia CAP (community acquired pneumonia) Pre-op evaluation Pulmonary fungal infection Gout Smoking greater than 30 pack years COPD mixed type Multiple lung nodules on CT Fungal pneumonia Acute and chronic respiratory failure with hypoxia Intertrochanteric fracture of left hip Status post cephalomedullary nailing Closed left hip fracture Acute respiratory failure with hypoxia Pneumonia due to COVID-19 virus Diabetes mellitus Diastolic dysfunction HLD (hyperlipidemia) HTN (hypertension) Subclavian artery stenosis, left PAD (peripheral artery disease) Tobacco use History of placement of stent in LAD coronary artery CAD (coronary artery disease) APR 2022-Severe ostial mid left main disease as described Successful stenting of the ostial proximal mid distal left main artery reducing the stenosis to less than 10% giving excellent angiograph results Preserved ejection fraction Normal left ventricular end-diastolic pressure Persistent stenosis in a large posterior lateral branch which is best managed medically COPD (chronic obstructive pulmonary disease) ACUÑA (dyspnea on exertion) Surgical History History of hysterectomy History of hip surgery Hx of right coronary artery stent placement Family History Other Asthma Cancer Diabetes Hypertension Social History (Updated 06/01/25 @ 19:01 by Mell Clifford RN) Smoking Status: Current every day smoker tobacco type: cigarettes packs per day: 1 second hand exposure: No alcohol intake: never substance use type: denies use current occupational status: disabled Travel in the last 8 weeks?: None household members: none housing: house current occupational exposures/hazards: No caffeine: Yes Have you lived/traveled outside US in past 30 days?: No Contact w/someone who lives/traveled outside US past 30 days?: No Exposure to someone with infectious disease in past 14 days?: No Do you have a fever (greater than 100.4 F or 38 C)?: No Have you tested positive for COVID-19?: No Exposed to someone with COVID-19 in past 14 days?: No Do you have a sore throat?: No Do you have a cough?: No Do you have any weakness?: No Are you experiencing any nausea/vomitting?: Yes Do you have any diarrhea?: No Are you experiencing any unusual bleeding?: No Do you have any muscle aches/pain?: No Do you have any abdominal pain?: No Are you experiencing loss of taste or smell?: No Other Medical History Have you received the Flu Vaccine for this season: No Have you received the Pneumonia Vaccine: Yes Meds Home Medications and Allergies Home Medications ?Medication ?Instructions ?Recorded ?Confirmed ?Type atorvastatin 20 mg tablet 20 mg PO HS 90 days ##90 10/26/17 06/01/25 History cetirizine 10 mg tablet 10 mg PO DAILY Allergy symptoms 30 10/26/17 06/01/25 History days ##30 clopidogrel 75 mg tablet 75 mg PO DAILY 90 days ##90 10/26/17 06/01/25 History aspirin 81 mg tablet,delayed 81 mg PO DAILY 05/06/18 06/01/25 History release atenolol 25 mg tablet 25 mg PO DAILY 06/03/20 06/01/25 History escitalopram oxalate 5 mg tablet 5 mg PO DAILY 06/03/20 06/01/25 History ipratropium 0.5 mg-albuterol 3 mg 3 ml inhalation QIDP PRN Shortness 05/03/22 06/01/25 History (2.5 mg base)/3 mL nebulization Of Breath soln allopurinol 100 mg tablet 200 mg PO DAILY 12/27/22 06/01/25 History bumetanide 1 mg tablet 1 mg PO BIDL Fluid 30 days #0 tabs 12/04/23 06/01/25 Rx colchicine 0.6 mg tablet 0.6 mg PO DAILYP PRN GOUT 02/17/24 06/01/25 History oxybutynin chloride 10 mg 10 mg PO DAILY #90 tabs 09/03/24 06/01/25 Rx tablet,extended release 24 hr spironolactone 50 mg tablet 50 mg PO BID Fluid 01/08/25 06/01/25 History estradiol 0.01% (0.1 mg/gram) 1 applic vaginal .TWICE WEEKLY 03/14/25 06/01/25 History vaginal cream gabapentin 300 mg capsule 600 mg PO BID 03/14/25 06/01/25 History ondansetron 8 mg disintegrating 8 mg PO Q8HP PRN Nausea And 03/14/25 06/01/25 History tablet Vomiting prochlorperazine maleate 10 mg 10 mg PO Q6HP PRN nausea and 03/14/25 06/01/25 History tablet (Compazine) vomiting promethazine 25 mg tablet 25 mg PO TIDP PRN nausea and 03/14/25 06/01/25 History vomiting Ertapenem Sodium [Invanz 1gm Vial] 100 mls/hr IV Q24H 03/16/25 06/01/25 Rx 1 gm insulin glargine 100 unit/mL (3 40 unit (0.4 mL) SQ DAILY #15 mL 03/16/25 06/01/25 Rx mL) subcutaneous pen (Lantus Solostar U-100 Insulin) pen needle, diabetic 31 gauge x #100 ea 03/16/25 05/28/25 Rx 1/4 sitagliptin phosphate 50 mg tablet 50 mg PO DAILYDM 30 days #30 tabs 03/16/25 06/01/25 Rx (Januvia) pen needle, diabetic 31 gauge x #1,200 ea 04/02/25 05/28/25 History 3/16 dexamethasone 4 mg tablet 4 mg PO BID chemotherapy #36 tabs 04/03/25 06/01/25 Rx folic acid 1 mg tablet 1 mg PO DAILY #30 tabs 04/03/25 06/01/25 Rx fluticasone propionate 50 1 spray intranasal DAILY 05/28/25 06/01/25 History mcg/actuation nasal spray,suspension New Prescriptions to Start Prescriptions: Allergies Allergy/AdvReac Type Severity Reaction Status Date / Time Sulfa (Sulfonamide Allergy Unknown BLISTERING Verified 05/28/25 13:28 Antibiotics) OF THROAT levofloxacin (From Levaquin) Allergy BLISTERS Verified 05/28/25 13:28 IN THROAT Exam Data for Last 24 hours Vital signs and Labs for Last 24 Hours: Temp Pulse Resp BP Pulse Ox O2 Del Method O2 Flow Rate 97.9 F 85 18 157/96 H 98 Nasal Cannula 2.5 06/01/25 18:19 06/01/25 18:19 06/01/25 18:19 06/01/25 18:19 06/01/25 17:39 06/01/25 19:07 06/01/25 19:07 Laboratory Results - last 24 hr 06/01/25 13:08: WBC 13.4 H, RBC 3.67 L, Hgb 12.3, Hct 36.8 L, MCV 100.3 H, MCH 33.5 H, MCHC 33.4, RDW 15.9, Plt Count 434 H, MPV 10.5 H, Neut % (Auto) 68.8, Lymph % (Auto) 11.0, [place] % (Auto) 13.9 H, Eos % (Auto) 0.3, Baso % (Auto) 0.5, Neut # (Auto) 9.2 H, Lymph # (Auto) 1.5, [place] # (Auto) 1.9 H, Eos # (Auto) 0.0, Baso # (Auto) 0.1, Total Counted 100, Neutrophils % (Manual) 79 H, Band Neutrophils % 1.0, Lymphocytes % (Manual) 5 L, Monocytes % (Manual) 14 H, Eosinophils % (Manual) 1, Platelet Estimate Normal, RBC Morphology Normal, Sodium 134 L, Potassium 4.2, Chloride 98, Carbon Dioxide 28, Anion Gap 12.2, BUN 28 H, Creatinine 1.00, Estimated GFR 55 L, Est GFR ( Amer) 67, Glucose 295 H, Calcium 9.9, Magnesium 1.9, Total Bilirubin 0.6, AST 34, ALT 27, Alkaline Phosphatase 108, Troponin I 0.02, NT-Pro-B Natriuret Pep 28952 H, Total Protein 7.5, Albumin 4.4, Globulin 3.1, Albumin/Globulin Ratio 1.4 06/01/25 15:08: SARS-CoV-2 (PCR) Not detected, Influenza A Untype (PCR) Not detected, Influenza Type B (PCR) Not detected 06/01/25 15:52: Troponin I 0.02 06/01/25 15:55: VBG pH 7.38, VBG pCO2 53.5 H, VBG pO2 33.0, VBG HCO3 30.9 H, VBG Total CO2 32.5 H, VBG O2 Saturation 59.7, VBG Base Excess 5.7 H, VBG Lactic Acid 1.9 06/01/25 17:05: Urine Color Yellow, Urine Appearance Slightly cloudy, Urine pH 6.0, Ur Specific [place] 1.015, Urine Protein Trace, Urine Glucose (UA) 1+, Urine Ketones Negative, Urine Blood Negative, Urine Nitrate Positive A, Urine Bilirubin Negative, Urine Urobilinogen 0.2, Ur Leukocyte Esterase Negative, Urine RBC None, Urine WBC 10-20, Ur Squamous Epith Cells 10-20, Urine Bacteria 4+ I & O for Last 24 hours: Intake & Output 05/29/25 05/30/25 05/31/25 06/01/25 23:59 23:59 23:59 23:59 Intake Total 50 / 50 Balance 50 / 50 Weight 70.307 kg Constitutional Constitutional: mild distress *Routine HEENT Exam Head: Present normocephalic Eye: Present EOMI and PERRL ENT: Present mucous membranes moist *Routine Neck Exam Neck: Present supple; Absent lymphadenopathy *Routine Respiratory Exam Respiratory: Present CTA bilaterally and wheezes *Routine Cardiovascular Exam Cardiovascular: Present RRR *Routine Abdominal Exam Abdominal: Present soft and normoactive bowel sounds; Absent tenderness *Routine Rectal Exam Rectal:: deferred *Routine Genitalia Exam Genitalia:: deferred *Routine Extremities Exam Extremities: Present edema and full ROM; Absent cyanosis or clubbing *Routine Skin Exam Skin: Present warm; Absent rash *Routine Neurological Exam Neurological: Present alert and oriented X3 Assessment and Plan *Assessment and plan (1) Acute UTI: Status: Acute Category: Medical Code(s): N39.0 - Urinary tract infection, site not specified (2) AMS (altered mental status): Status: Acute Qualifiers: Altered mental status type: disorientation Qualified Code(s): R41.0 - Disorientation, unspecified Category: Medical Code(s): R41.82 - Altered mental status, unspecified (3) (HFpEF) heart failure with preserved ejection fraction: Status: Acute Category: Medical Code(s): I50.30 - Unspecified diastolic (congestive) heart failure Plan Carolina Rivers is a 69-year-old female with a medical history significant for lung adenocarcinoma, COPD on 2 to 3 L baseline, HFpEF with G2 DD, type 2 diabetes with neuropathy, CAD, anxiety/depression presents with reported altered mental status and shortness of breath. On my evaluation, patient looked distressed but could not pinpoint a specific symptoms. She states she is not feeling well. On further inquiry, she states that she has been having abdominal pain, increased urinary frequency shortness of breath, but no chest pain. Her last chemo infusion was reportedly on 05/21 for lung adenocarcinoma. Follows with Dr. Morrow. Workup in the ED significant for WBC 13.4, BNP 10,500, UA grossly abnormal, mini respiratory panel negative. She was given IV ceftriaxone 1 g. Given these findings ED provider discussed case with manage decided to admit patient for acute metabolic encephalopathy, UTI, and HFpEF exacerbation. #Acute metabolic encephalopathy, resolving #UTI ? Endorses urinary frequency on admission. UA grossly abnormal. UCx grew Proteus mirabilis on 04/22/2025 sensitive to ceftriaxone. ? Continue IV ceftriaxone 1 g. ? Follow-up urine, blood cultures. #HFpEF exacerbation ? Patient endorses increased shortness of breath, productive cough, leg swelling. Has been taking her diuretics. Initial BNP 10,500. ? ECHO 12/03/2023 LVEF 55%, grade 2 diastolic dysfunction. ? IV Lasix 60 mg ordered. Follow-up response. ? Resume home Bumex 1 mg twice daily, spironolactone 50 mg twice daily. ? Follow-up repeat ECHO. #Left upper lobe lung adenocarcinoma ? Follows with Dr. Morrow. Last chemoinfusion reportedly on 05/21/2025. ? Consider goals of care conversation in the morning. ? Continue home dexamethasone once reconciled. #COPD ? DuoNebs as needed. Continue home inhaler once reconciled. Baseline 2 to 3 L oxygen. #Type 2 diabetes ? Hemoglobin A1c 9.5% in February. Follow-up repeat A1c. ? LDSSI, ACHS glucose checks. ? Continue home gabapentin once reconciled. #CAD ? Continue home aspirin, Plavix, statin once reconciled. #Gout ? Continue home allopurinol once reconciled. #Anxiety/depression ? Continue home medication once reconciled. Full code DVT prophylaxis: Lovenox 40 mg
[2025-06-01] MEDS: FUROSEMIDE 40MG/4ML VIAL 60 MG IV (19:43)
--- NOTE | 2025-06-01 20:02 | [facility].ITSTN ---
RN Rhonda stated that patient was not able to come down to scan yet - Rhonda stated that she had just given the patient oral ativan and that the patient was not going to be able to sit still for the CT scan at this time. RN will call rad dept when patient is ready to come down.
[2025-06-01] MEDS: ONDANSETRON 4MG/2ML VIAL 4 MG IV (20:08)
[2025-06-01] MEDS: IPRATROPIUM/ALBUTEROL 3 ML NEB IH (20:08)
[2025-06-01 21:29] LABS: Troponin I 0.02 ng/ml (0.00-0.034)
[2025-06-01] MEDS: IOPAMIDOL-370 (76%);100ML BOTTLE 75 ML IV (21:52)
[2025-06-01] MEDS: SPIRONOLACTONE 25MG TABLET 50 MG PO (23:07)
[2025-06-01] MEDS: humaLOG 100 UNITS/ML 10ML VIAL (SSI) SUBCUT (23:25)
[2025-06-02] VITALS (11 sets, daily range): BP systolic 94–141; BP diastolic 59–84; PULSE 73–103; RESP 18–28; TEMP 36.5–37; O2SAT 85–97; BMI 29.5
[2025-06-02] MEDS: IPRATROPIUM/ALBUTEROL 3 ML NEB IH ×5 (00:15→23:49)
--- NOTE | 2025-06-02 03:45 | PC.NURSE ---
This patient was admitted at [facility] eof shift last night for UTI, COPD exacerbation and Acute Metabolic Encephalopathy. At start of the shift. Pt. was sitting in a chair with her head on the bedside table, moaning, anxious and very restless.Pt. states over and over Help Me Jamie , Pt. very SOB and takes oxygen off . Pt. also needing to void. assisted to bedside commode to void. Pt. was medicated for anxiety and was able to calm some. After calming pt. to CT scan for abdomen/pelvis CT. Pt. returned to room after CT. Pt. assisted to bed and was comfortable. Pt. has had periods of anxiety and restlessness throughout this shift. Pt. is alert and orientated x 4. with Brief periods of confusion.Pt. on oxygen 2 liters per NC. ACHS blood sugars done and covered with Insulin. Pt. sleeping at intervals this shift. Purewick in place to assist with voiding. Pt. got Lasix at change of shift last night. Personal items and call pickett in reach. Bed in low and locked position. Bed alarm on. Safety measures in place.
[2025-06-02 06:29] LABS: Hematocrit 36.0 % (37.0-47.0); Hemoglobin 12.3 g/dL (12.2-16.2); Immature Granulocytes % 5.4 %; Mean Corpuscular HGB Conc 34.2 g/dL (31.8-35.4); Mean Corpuscular Hemoglobin 34.2 pg (27.0-31.2); Mean Corpuscular Volume 100.0 fl (81-99); Nucleated Red Blood Cells % 0 %; Platelet Count 379 K/mm3 (142-424); Red Blood Count 3.60 M/mm3 (4.20-5.40); Red Cell Distribution Width-SD 57.9 fL; White Blood Count 15.8 K/mm3 (4.8-10.8)
[2025-06-02 06:46] LABS: Alanine Aminotransferase 22 U/L (12-78); Albumin Level 4.2 g/dl (3.5-5.0); Albumin/Globulin Ratio 1.4 (1.1-1.8); Alkaline Phosphatase 100 U/L (38-126); Anion Gap 14.5 mEq/L (5-15); Aspartate Amino Transferase 60 U/L (14-36); Bilirubin,Total 0.8 mg/dl (0.2-1.3); Blood Urea Nitrogen 28 mg/dl (7-17); Calcium 9.6 mg/dl (8.4-10.2); Carbon Dioxide 26 mmol/L (22.0-30.0); Chloride 99 mmol/L (98-107); Creatinine Clearance Estimated 51 mL/min (50-200); Creatinine,Serum 1.20 mg/dl (0.52-1.04); Estimated Glomerular Filt Rate 45 ml/min (>60); GFR (African American) 54 ML/MIN (>60); Globulin 3.1 g/dL (1.3-3.2); Glucose 93 mg/dl (74-100); Magnesium 2.0 mg/dl (1.6-2.3); Potassium 3.5 mmoL/L (3.5-5.1); Sodium 136 mmol/L (136-145); Total Protein,Serum 7.3 g/dl (6.3-8.2)
[2025-06-02 07:15] LABS: Thyroid Stimulating Hormone 0.75 uIU/mL (0.465-4.68)
[2025-06-02 07:29] LABS: Total Cells Counted 100
[2025-06-02 07:30] LABS: Macrocytosis 1+
[2025-06-02 07:36] LABS: Procalcitonin 0.136 ng/mL (0.0-2.0)
[2025-06-02 07:37] LABS: Free T4 (Free Thyroxine) 1.54 ng/dl (0.78-2.19)
[2025-06-02] MEDS: BUMETANIDE 1 MG TABLET PO ×2 (09:12→17:03)
[2025-06-02] MEDS: ASPIRIN EC 81MG TABLET 81 MG PO (09:12)
[2025-06-02] MEDS: SPIRONOLACTONE 25MG TABLET 50 MG PO ×2 (09:13→21:59)
[2025-06-02] MEDS: CEFTRIAXONE 1 GM 1 GM in 0.9 % SODIUM CHLORIDE 50 ML IV (09:15)
[2025-06-02 11:49] LABS: POC Glucose,Bedside 320 gm/dL (70-110)
[2025-06-02] MEDS: humaLOG 100 UNITS/ML 10ML VIAL (SSI) SUBCUT ×3 (11:53→22:07)
[2025-06-02 12:22] LABS: POC Glucose,Bedside 120 gm/dL (70-110)
[2025-06-02 12:23] LABS: POC Glucose,Bedside 277 gm/dL (70-110)
[2025-06-02 12:53] LABS: Hemoglobin A1C 8.9 % (4.0-6.0)
--- OUTSIDE RECORDS SUMMARY | 2025-06-02 14:40 | XMS_ITS | Encounter Summary ---
Author Organization Healthcare Address [address] [place] [address] Care Team Providers Care Demurrage Man Name Role Phone Anselmo Montana MD Primary Care Provider [phone] Brett Gaming MD Unavailable [phone] Encounter Details Date Type Department Care Team (Late st Contact Info) Description 12/01/2023 Orders Only External Location [address] [place] [address] Provider, External Social History Tobacco Use Types [...] documented as of this encounter Care Teams Demurrage Man Relationship Specialty Start Date End Date Anselmo Montana MD [address] [place] [address] PCP - General 01/28/21 Brett Gaming MD [address] [facility] [address] [place] [id number] Consulting Physician Radiation Oncology 02/02/22 documented as of this encounter
--- OUTSIDE RECORDS SUMMARY | 2025-06-02 14:40 | XMS_ITS ---
Author Organization Healthcare Address [address] [place] [address] Care Team Providers Care Tire Center Supervisor Name Role Phone Anselmo Montana MD Primary Care Provider [phone] Brett Gaming MD Unavailable [phone] Active Problems Problem Noted Date Diagnosed Date [...]
--- OUTSIDE RECORDS SUMMARY | 2025-06-02 14:40 | XMS_ITS | Encounter Summary ---
Author Organization Healthcare Address [address] [place] [address] Care Team Providers Care Slide Developer Name Role Phone Anselmo Montana MD Primary Care Provider [phone] Brett Gaming MD Unavailable [phone] Encounter Details Date Type Department Care Team (Late st Contact Info) Description 04/08/2024 Orders Only External Location [address] [place] [address] Provider, External Social History Tobacco Use Types [...] documented as of this encounter Care Teams Slide Developer Relationship Specialty Start Date End Date Anselmo Montana MD [address] [place] [address] PCP - General 01/28/21 Brett Gaming MD [address] [facility] [address] [place] [phone] Consulting Physician Radiation Oncology 02/02/22 documented as of this encounter
--- OUTSIDE RECORDS SUMMARY | 2025-06-02 14:40 | XMS_ITS | Encounter Summary ---
Author Organization Healthcare Address [address] [place] [address] Care Team Providers Care Digital Tech Name Role Phone Anselmo Montana MD Primary Care Provider [phone] Brett Gaming MD Unavailable [phone] Encounter Details Date Type Department Care Team (Late st Contact Info) Description 04/15/2024 Orders Only External Location [address] [place] [address] Provider, External Social History Tobacco Use Types [...] documented as of this encounter Care Teams Digital Tech Relationship Specialty Start Date End Date Anselmo Montana MD [address] [place] [address] PCP - General 01/28/21 Brett Gaming MD [address] [facility] [address] [place] [phone] Consulting Physician Radiation Oncology 02/02/22 documented as of this encounter
--- OUTSIDE RECORDS SUMMARY | 2025-06-02 14:40 | XMS_ITS | Clinical Summary ---
Author Organization Healthcare Address [address] [place] [address] Care Team Providers Care Cognos Name Role Phone Anselmo Montana MD Primary Care Provider [phone] Brett Gaming MD Unavailable [phone] Allergies Active Allergy Reactions Criticality Noted Date [...] DAILY FOR FLUID RETENTION 2 Active Tiotropium Rimforest Monohydrate (Spiriva Respimat) 2.5 MCG/ACT inhaler 2 [...] of 3 - PCV) 11/18/2021 11/18/2020, 11/20/2015 [id number] Vaccine ( season) 2025 07/27/2021, 10/25/2020, 09/23/2020 [...] patient's age to complete this topic Insurance [facility] MEDICARE Advance Directives * Full Code (Latest Code Status on File) Date Activated Date Inactivated Comments 06/04/2024 1:14 PM 06/04/2024 6:34 PM Question Answer Comments Patient has decision-making capacity? Yes Care Teams Cognos Relationship Specialty Start Date End Date Anselmo Montana MD [address] [facility] [address] [place] [address] PCP - General 01/28/21 Brett Gaming MD [address] [facility] [address] [place] [address] Consulting Physician Radiation Oncology 02/02/22
[2025-06-02 17:06] LABS: POC Glucose,Bedside 155 gm/dL (70-110)
--- NOTE | 2025-06-02 18:18 | EXP.ACUTE.PN ---
Subjective *Date: 06/02/25 *Time: 18:48 Interval history: Still requiring 2 L oxygen continuous at normally on 2 L at night only. Afebrile. Appears quite uncomfortable. Remains tachycardic. States she just feels bad all over. Son at bedside states no improvement, but no worsening. Patient wanting to go home. Medical Exam Vital signs and Labs for Last 24 Hours: Vital Signs Temp Pulse Pulse Resp BP BP Pulse Ox 06/02/25 17:10 06/02/25 16:00 98.0 F 103 H 28 H 139/77 90 L 06/02/25 16:00 93 L 06/02/25 15:10 06/02/25 13:10 06/02/25 12:45 97 H 06/02/25 12:45 95 H 06/02/25 11:18 98.6 F 73 24 94/62 L 93 L 06/02/25 11:10 06/02/25 09:20 06/02/25 08:30 93 L 06/02/25 08:00 93 L 06/02/25 08:00 98.2 F 93 H 20 113/66 93 L 06/02/25 06:24 06/02/25 06:23 84 06/02/25 06:23 88 06/02/25 06:23 94 L 06/02/25 05:00 06/02/25 04:00 98.1 F 86 19 100/59 L 85 L 06/02/25 02:48 06/02/25 01:00 06/02/25 00:15 93 H 06/02/25 00:15 96 H 06/02/25 00:15 94 L 06/02/25 00:00 98.2 F 89 19 120/76 97 06/01/25 23:00 06/01/25 21:00 06/01/25 20:00 20 94 L 06/01/25 20:00 98.3 F 104 H 20 149/71 H 94 L 06/01/25 19:07 06/01/25 18:19 97.9 F 85 18 157/96 H O2 Del Method O2 Flow Rate 06/02/25 17:10 Nasal Cannula 2.5 06/02/25 16:00 Nasal Cannula 2.5 06/02/25 16:00 Nasal Cannula 2.5 06/02/25 15:10 Nasal Cannula 2.5 06/02/25 13:10 Nasal Cannula 2.5 06/02/25 12:45 06/02/25 12:45 06/02/25 11:18 Nasal Cannula 2.5 06/02/25 11:10 Nasal Cannula 2.5 06/02/25 09:20 Nasal Cannula 2.5 06/02/25 08:30 Nasal Cannula 2.5 06/02/25 08:00 Nasal Cannula 2.5 06/02/25 08:00 Nasal Cannula 2.5 06/02/25 06:24 Nasal Cannula 2.5 06/02/25 06:23 06/02/25 06:23 06/02/25 06:23 Nasal Cannula 3 06/02/25 05:00 Nasal Cannula 2.5 06/02/25 04:00 Room Air 06/02/25 02:48 Nasal Cannula 2.5 06/02/25 01:00 Nasal Cannula 2.5 06/02/25 00:15 06/02/25 00:15 06/02/25 00:15 Nasal Cannula 2.5 06/02/25 00:00 Nasal Cannula 2.5 06/01/25 23:00 Nasal Cannula 2.5 06/01/25 21:00 Nasal Cannula 2.5 06/01/25 20:00 Nasal Cannula 2.5 06/01/25 20:00 Nasal Cannula 2.5 06/01/25 19:07 Nasal Cannula 2.5 06/01/25 18:19 Nasal Cannula 2 Intake and Output 06/02/25 06/02/25 06/02/25 07:59 15:59 23:59 Intake Total 120 / 170 50 / 170 Output Total 1000 / 1900 900 / 1900 Balance -880 / -1730 -850 / -1730 Intake: Intake, Oral Amount 120 / 120 0 / 120 Intake, Total IV Amount 50 / 50 Ceftriaxone 1 gm 1 gm In 0.9 % 50 / 50 Sodium Chloride 50 ml @ 100 mls /hr IV Q24H [facility] Rx#:[id number] Output: Output, Urine Amount 1000 / 1900 900 / 1900 Other: Number of Unmeasured Voids 0 0 Weight 72.847 kg Patient Weight 06/02/25 23:59 Weight 72.847 kg Laboratory Results - last 24 hr 06/01/25 17:05: Urine Color Yellow, Urine Appearance Slightly cloudy, Urine pH 6.0, Ur Specific [place] 1.015, Urine Protein Trace, Urine Glucose (UA) 1+, Urine Ketones Negative, Urine Blood Negative, Urine Nitrate Positive A, Urine Bilirubin Negative, Urine Urobilinogen 0.2, Ur Leukocyte Esterase Negative, Urine RBC None, Urine WBC 10-20, Ur Squamous Epith Cells 10-20, Urine Bacteria 4+ 06/01/25 20:20: Troponin I 0.02 06/01/25 22:28: POC Glucose 320 H* 06/02/25 05:45: WBC 15.8 H, RBC 3.60 L, Hgb 12.3, Hct 36.0 L, MCV 100.0 H, MCH 34.2 H, MCHC 34.2, RDW 15.9, Plt Count 379, MPV 10.6 H, Neut % (Auto) 65.9, Lymph % (Auto) 11.9, Dickson % (Auto) 14.4 H, Eos % (Auto) 1.7, Baso % (Auto) 0.7, Neut # (Auto) 10.4 H, Lymph # (Auto) 1.9, Dickson # (Auto) 2.3 H, Eos # (Auto) 0.3, Baso # (Auto) 0.1, Total Counted 100, Neutrophils % (Manual) 73, Lymphocytes % (Manual) 15, Monocytes % (Manual) 10 H, Eosinophils % (Manual) 2, Platelet Estimate Normal, Macrocytosis 1+, Sodium 136, Potassium 3.5, Chloride 99, Carbon Dioxide 26, Anion Gap 14.5, BUN 28 H, Creatinine 1.20 H, Estimated Creat Clear 51, Estimated GFR 45 L, Est GFR ( Amer) 54 L, Glucose 93 D, POC Glucose 120 H, Hemoglobin A1c 8.9 H, Calcium 9.6, Magnesium 2.0, Total Bilirubin 0.8, AST 60 H D, ALT 22, Alkaline Phosphatase 100, Total Protein 7.3, Albumin 4.2, Globulin 3.1, Albumin/Globulin Ratio 1.4, Procalcitonin 0.136, TSH 0.75, Free T4 1.54 06/02/25 11:46: POC Glucose 277 H 06/02/25 16:58: POC Glucose 155 H I & O for Labs for Last 24 Hours: Intake & Output 0905/31/25 06/01/25 06/02/25 23:59 23:59 23:59 23:59 Intake Total 50 / 170 170 / 170 Output Total 200 / 700 1900 / 1900 Balance -150 / -530 -1730 / -1730 Weight 70.307 kg 72.847 kg Microbiology Reports for the Last 24 Hours: Microbiology 06/01/25 17:05 Urine,Clean Catch Urine Culture - Preliminary Gram Negative Rods Constitutional: Present mild distress, average body habitus, chronically ill appearing and cooperative Comment:: Weak Head: Present atraumatic and normocephalic ENT: Present normal exam Respiratory: Present wheezes (Diffuse throughout both lung field) and normal respiratory effort; Absent rhonchi or crackles Cardiac: Present Regular Rhythm and Tachycardia GI: Present soft and normal bowel sounds; Absent distention or tenderness Extremities: Present normal inspection and full ROM Skin: Present intact; Absent erythema Neuro: Present Grossly Intact, alert, awake, oriented x 3 and moves all extremities Assessment and Plan *Assessment and plan (1) Acute UTI: Status: Acute Category: Medical Code(s): N39.0 - Urinary tract infection, site not specified (2) AMS (altered mental status): Status: Acute Qualifiers: Altered mental status type: disorientation Qualified Code(s): R41.0 - Disorientation, unspecified Category: Medical Code(s): R41.82 - Altered mental status, unspecified (3) (HFpEF) heart failure with preserved ejection fraction: Status: Acute Category: Medical Code(s): I50.30 - Unspecified diastolic (congestive) heart failure (4) Heart failure with preserved ejection fraction: Status: Acute Qualifiers: Heart failure chronicity: acute on chronic Qualified Code(s): I50.33 - Acute on chronic diastolic (congestive) heart failure Category: Medical Code(s): I50.30 - Unspecified diastolic (congestive) heart failure (5) Smoking greater than 30 pack years: Status: Acute Category: Social Hx Code(s): F17.210 - Nicotine dependence, cigarettes, uncomplicated Plan Carolina Rivers is a 69-year-old female with a medical history significant for lung adenocarcinoma, COPD on 2 to 3 L baseline, HFpEF with G2 DD, type 2 diabetes with neuropathy, CAD, anxiety/depression presents with reported altered mental status and shortness of breath. On my evaluation, patient looked distressed but could not pinpoint a specific symptoms. She states she is not feeling well. On further inquiry, she states that she has been having abdominal pain, increased urinary frequency shortness of breath, but no chest pain. Her last chemo infusion was reportedly on 05/21 for lung adenocarcinoma. Follows with Dr. Morrow. Workup in the ED significant for WBC 13.4, BNP 10,500, UA grossly abnormal, mini respiratory panel negative. She was given IV ceftriaxone 1 g. Given these findings ED provider discussed case with manage decided to admit patient for acute metabolic encephalopathy, UTI, and HFpEF exacerbation. #Acute metabolic encephalopathy, resolving #UTI ? Endorses urinary frequency on admission. UA grossly abnormal. UCx grew Proteus mirabilis on 04/22/2025 sensitive to ceftriaxone. ? Continue IV ceftriaxone 1 g. ? Follow-up urine, blood cultures. - White count increased to 15.8, hemoglobin 12.3. Kidney function stable with BUN 28, creatinine 1.2. Repeat CBC, CMP, magnesium ordered for the morning #HFpEF exacerbation ? Patient endorses increased shortness of breath, productive cough, leg swelling. Has been taking her diuretics. Initial BNP 10,500. ? ECHO 12/03/2023 LVEF 55%, grade 2 diastolic dysfunction. ? Continue Bumex 1 mg twice daily and spironolactone 50 mg twice daily. -1 L in the past 24 hours. Having good response. Continues to have oxygen requirement of 2 L continuous. Wean as tolerated for goal sats greater 90% - Echo obtained with mildly reduced EF of 45%. Mild biatrial dilatation. New finding of HFrEF. #Left upper lobe lung adenocarcinoma ? Follows with Dr. Morrow. Last chemoinfusion reportedly on 05/21/2025. ? Consider goals of care conversation in the morning. ? Continue home dexamethasone once reconciled. #COPD ? DuoNebs scheduled every 6 hours. Reports baseline oxygen of 2 L at night while asleep. Currently on 2 L continuous. #Type 2 diabetes ? Hemoglobin A1c 9.5% in February. Repeat A1c 8.9. ? LDSSI, ACHS glucose checks. #CAD ? Continue home aspirin. Holding statin with bodyaches. #Anxiety/depression Neuropathy ? Resume home Lexapro 5 mg daily - Resume gabapentin 600 mg twice daily. Full code DVT prophylaxis: Lovenox 40 mg Regular diet
--- NOTE | 2025-06-02 19:40 | CA_ITS ---
APPROVED REPORT EXAM: Comprehensive 2D, Doppler, and color-flow Echocardiogram First Press Operator: Audrey Yung RT(R) Ht: 5 ft 2 in Wt: 140lbs BSA: 1.64 BP: 114/82 mmHg Indications: shortness of breath, AMS, heart failure, lung cancer, undergoing chemo. 2D Dimensions Left Atrium 3.39 cm F: 2.7 - 3.8 LA Volume 27.10 mL LVOT 1.97 cm (M/F) 1.5-2.5 LA Volume Index 16.52 mL/m2 (M/F) 16-34 EF AP4 31.10 % GL Strain -4.6 % M-Mode Dimensions RVDd 2.73 cm (0.9-2.6) LVDd 3.98 cm (3.5-5.7) Ao Diam 3.24 cm (2.0-3.7) LVDs 3.45 cm (3.5-5.7) IVSd 0.72 cm (0.6-1.1) PWd 0.72 cm (0.6-1.1) EF (Teich) 29.00% FS 13.30% EDV (Teich) 69.20 mL ESV (Teich) 49.10 mL LV Diastology E Decel Time 150 (160-240 msec) E/A Ratio 0.3 MED E' 4.7 (>= 7 cm/sec) E'/MED E' Ratio 4.96 (<= 14) LAT E' 5.0 (>= 10 cm/sec) E/LAT E' Ratio 4.66 (<= 14) Mitral Valve MV E Max Ramirez. 23.0 (40-130 cm/s) MV A Velocity 81.0 (40-130 cm/s) E/A Ratio 0.29 MV Decel. Time 150 (160-240 ms) Left Ventricle The left ventricle is normal size. Left ventricular systolic function is mildly reduced. There is normal left ventricular wall thickness. There is mild global hypokinesis present. The left ventricular diastolic function is normal. LVEF is 45%. Right Ventricle The right ventricle is normal size. The right ventricular systolic function is normal. Atria The left atrium is mildly dilated. The right atrium is mildly dilated. There is no color Doppler evidence of interatrial shunt. Aortic Valve The aortic valve is mildly thickened. There is no hemodynamically significant aortic valvular stenosis. Trace aortic regurgitation is present. Mitral Valve The mitral valve is mildly thickened. No evidence of mitral valve stenosis. Trace mitral regurgitation is present. Tricuspid Valve The tricuspid valve leaflets are thin and pliable. Trace tricuspid regurgitation. There is insufficient TR jet to estimate RVSP. Pulmonic Valve The pulmonary valve is grossly normal in structure. Trace pulmonic valve regurgitation is present. Great Vessels The aortic root is normal in size. IVC is normal in size and collapses >50% with inspiration. Pericardium There is no pericardial effusion. Other Information Study Quality: Fair Conclusion Mild reduction in LV systolic function (LVEF 45%). Mild biatrial dilation. No significant valvular stenosis or regurgitation. Electronically signed by : Ailin Reid MD 06/02/2025 10:48:34
[2025-06-02] MEDS: ONDANSETRON 4MG/2ML VIAL 4 MG IV (19:42)
--- NOTE | 2025-06-02 21:24 | EXP.EVENT.NO ---
wrote for lexapro 5mg po qhs per pt request.
[2025-06-02] MEDS: GABAPENTIN 300MG CAPSULE 600 MG PO (21:59)
[2025-06-02] MEDS: DEXAMETHASONE 4MG TABLET 4 MG PO (21:59)
[2025-06-02 22:17] LABS: POC Glucose,Bedside 162 gm/dL (70-110)
[2025-06-03] VITALS (10 sets, daily range): BP systolic 121–142; BP diastolic 62–87; PULSE 78–104; RESP 18–20; TEMP 36.4–37.1; O2SAT 90–93; BMI 29.2
[2025-06-03] MEDS: IPRATROPIUM/ALBUTEROL 3 ML NEB IH ×4 (06:10→23:11)
[2025-06-03] MEDS: humaLOG 100 UNITS/ML 10ML VIAL (SSI) SUBCUT ×4 (06:21→20:30)
[2025-06-03 06:22] LABS: POC Glucose,Bedside 250 gm/dL (70-110)
[2025-06-03 06:35] LABS: Hematocrit 36.3 % (37.0-47.0); Hemoglobin 12.4 g/dL (12.2-16.2); Immature Granulocytes % 7.5 %; Mean Corpuscular HGB Conc 34.2 g/dL (31.8-35.4); Mean Corpuscular Hemoglobin 34.4 pg (27.0-31.2); Mean Corpuscular Volume 100.8 fl (81-99); Nucleated Red Blood Cells % 0 %; Platelet Count 318 K/mm3 (142-424); Red Blood Count 3.60 M/mm3 (4.20-5.40); Red Cell Distribution Width-SD 60.7 fL; White Blood Count 10.0 K/mm3 (4.8-10.8)
[2025-06-03 06:49] LABS: Alanine Aminotransferase 22 U/L (12-78); Albumin Level 4.1 g/dl (3.5-5.0); Albumin/Globulin Ratio 1.4 (1.1-1.8); Alkaline Phosphatase 100 U/L (38-126); Anion Gap 15.0 mEq/L (5-15); Aspartate Amino Transferase 25 U/L (14-36); Bilirubin,Total 0.7 mg/dl (0.2-1.3); Blood Urea Nitrogen 36 mg/dl (7-17); Calcium 9.7 mg/dl (8.4-10.2); Carbon Dioxide 27 mmol/L (22.0-30.0); Chloride 98 mmol/L (98-107); Creatinine Clearance Estimated 40 mL/min (50-200); Creatinine,Serum 1.50 mg/dl (0.52-1.04); Estimated Glomerular Filt Rate 34 ml/min (>60); GFR (African American) 42 ML/MIN (>60); Globulin 3.0 g/dL (1.3-3.2); Glucose 207 mg/dl (74-100); Magnesium 1.9 mg/dl (1.6-2.3); Potassium 4.0 mmoL/L (3.5-5.1); Sodium 136 mmol/L (136-145); Total Protein,Serum 7.1 g/dl (6.3-8.2)
[2025-06-03 07:20] LABS: RBC Morphology Normal; Total Cells Counted 100
[2025-06-03] MEDS: ATENOLOL 25MG TABLET 25 MG PO (09:01)
[2025-06-03] MEDS: DEXAMETHASONE 4MG TABLET 4 MG PO (09:01)
[2025-06-03] MEDS: GABAPENTIN 300MG CAPSULE 600 MG PO ×2 (09:02→20:30)
[2025-06-03] MEDS: SPIRONOLACTONE 25MG TABLET 50 MG PO ×2 (09:02→20:29)
[2025-06-03] MEDS: ASPIRIN EC 81MG TABLET 81 MG PO (09:02)
[2025-06-03] MEDS: CEFTRIAXONE 1 GM 1 GM in 0.9 % SODIUM CHLORIDE 50 ML IV (09:02)
[2025-06-03] MEDS: ESCITALOPRAM 10MG TABLET 5 MG PO (09:02)
--- NOTE | 2025-06-03 09:57 | P.CONS_ITS ---
History of Present Illness History of present illness: Ms. Rivers is a 69-year-old female prior history of adenocarcinoma lung COPD chronic hypoxic respiratory failure heart failure preserved ejection fraction presented to the ER with worsening mentation and shortness of breath and pulmonary was called for further evaluation and management. [facility] Disclaimer: The information contained in this section may have been updated after the patient was seen, as this information can be updated by other users. Medical History Altered mental status Yeast vaginitis Hematuria Atrophic vaginitis Abscess of right thigh Trochanteric bursitis, left hip Delirium Closed fracture of greater trochanter of femur Fall Pneumonia with cavity of lung UTI (urinary tract infection) Sepsis COPD exacerbation Pneumonia CAP (community acquired pneumonia) Pre-op evaluation Pulmonary fungal infection Gout Smoking greater than 30 pack years COPD mixed type Multiple lung nodules on CT Fungal pneumonia Acute and chronic respiratory failure with hypoxia Intertrochanteric fracture of left hip Status post cephalomedullary nailing Closed left hip fracture Acute respiratory failure with hypoxia Pneumonia due to COVID-19 virus Diabetes mellitus Diastolic dysfunction HLD (hyperlipidemia) HTN (hypertension) Subclavian artery stenosis, left PAD (peripheral artery disease) Tobacco use History of placement of stent in LAD coronary artery CAD (coronary artery disease) APR 2022-Severe ostial mid left main disease as described Successful stenting of the ostial proximal mid distal left main artery reducing the stenosis to less than 10% giving excellent angiograph results Preserved ejection fraction Normal left ventricular end-diastolic pressure Persistent stenosis in a large posterior lateral branch which is best managed medically COPD (chronic obstructive pulmonary disease) ACUÑA (dyspnea on exertion) Surgical History History of hysterectomy History of hip surgery Hx of right coronary artery stent placement Family History Other Asthma Cancer Diabetes Hypertension Social History (Updated 06/01/25 @ 19:01 by Mell Clifford RN) Smoking Status: Current every day smoker tobacco type: cigarettes packs per day: 1 second hand exposure: No alcohol intake: never substance use type: denies use current occupational status: disabled Travel in the last 8 weeks?: None household members: none housing: house current occupational exposures/hazards: No caffeine: Yes Review of Systems Constitutional Constitutional: Reports anorexia, Reports body ache(s) and Reports fatigue Eyes Eyes: Denies eye discharge, Denies dry eyes, Denies irritation and Denies itchy eyes ENT Ears, Nose, Mouth, and Throat: Denies epistaxis, Denies facial pain, Denies lip swelling and Denies throat swelling *Cardiovascular Cardiovascular: Reports dyspnea and Reports dyspnea on exertion *Respiratory Respiratory: Denies change in phlegm color, Reports chest congestion, Reports cough, Reports dyspnea, Reports dyspnea on exertion, Denies excessive phlegm production, Denies hemoptysis, Denies pain on inspiration, Denies pain with cough and Reports wheezing *Gastrointestinal Gastrointestinal: Denies abdominal pain, Denies belching and Denies cramping *Musculoskeletal Musculoskeletal: Reports back pain, Reports myalgias and Reports other (No small joint swelling or Pain) Psychiatric Psychiatric: Denies homicidal ideation and Denies suicidal ideation Endocrine Endocrine: Reports fatigue and Denies heat intolerance Hematologic/Lymphatic Hematologic/Lymphatic: Denies easy bleeding and Denies lymphadenopathy Allergic/Immunologic Allergic/Immunologic: Denies itchy eyes, Denies lip swelling, Denies throat swelling and Reports wheezing Pulmonology Exam Inpatient Vital signs and Labs for Last 24 Hours: Temp Pulse Resp BP Pulse Ox O2 Del Method O2 Flow Rate 97.6 F 102 H 18 121/73 90 L Nasal Cannula 2 06/03/25 08:00 06/03/25 08:00 06/03/25 08:00 06/03/25 08:00 06/03/25 08:00 06/03/25 09:00 06/03/25 09:00 Laboratory Results - last 24 hr 06/01/25 22:28: POC Glucose 320 H* 06/02/25 05:45: POC Glucose 120 H, Hemoglobin A1c 8.9 H 06/02/25 11:46: POC Glucose 277 H 06/02/25 16:58: POC Glucose 155 H 06/02/25 22:03: POC Glucose 162 H 06/03/25 05:31: WBC 10.0 D, RBC 3.60 L, Hgb 12.4, Hct 36.3 L, MCV 100.8 H, MCH 34.4 H, MCHC 34.2, RDW 16.2, Plt Count 318, MPV 11.1 H, Neut % (Auto) 81.5 H, L ymph % (Auto) 6.2 L, Collier % (Auto) 3.8, Eos % (Auto) 0.1, Baso % (Auto) 0.9, N eut # (Auto) 8.1 H, Lymph # (Auto) 0.6 L, Collier # (Auto) 0.4, Eos # (Auto) 0.0, Baso # (Auto) 0.1, Total Counted 100, Neutrophils % (Manual) 90 H, Lymphocytes % (Manual) 5 L, Monocytes % (Manual) 5, Platelet Estimate Normal, RBC Morphology Normal, Sodium 136, Potassium 4.0, Chloride 98, Carbon Dioxide 27, Anion Gap 15.0, BUN 36 H D, Creatinine 1.50 H D, Estimated Creat Clear 40, Estimated GFR 34 L, Est GFR ( Amer) 42 L D, Glucose 207 H D, Calcium 9.7, Magnesium 1.9, Total Bilirubin 0.7, AST 25 D, ALT 22, Alkaline Phosphatase 100, Total Protein 7.1, Albumin 4.1, Globulin 3.0, Albumin/Globulin Ratio 1.4 06/03/25 06:15: POC Glucose 250 H I & O for Labs for Last 24 Hours: Intake & Output 05/31/25 06/01/25 06/02/25 06/03/25 23:59 23:59 23:59 23:59 Intake Total 50 / 170 170 / 370 250 / 250 Output Total 200 / 700 1900 / 1900 300 / 300 Balance -150 / -530 -1730 / -1530 -50 / -50 Weight 155 lb 160 lb 9.6 oz 159 lb 5 oz Microbiology Reports for the Last 24 Hours: Microbiology 06/01/25 17:05 Urine,Clean Catch Urine Culture - Final Escherichia coli Constitutional: Present moderate distress Head: Present normocephalic and atraumatic ENT: Present normal exam, normal oropharynx and mucous membranes moist Neck: Present normal inspection and full ROM Respiratory: Present prolonged expiratory phase, respiratory distress, wheezes, diminished air movement and able to speak in complete sentences Cardiac: Present S1/S2, Tachycardia and radial pulses present GI: Present soft and distention; Absent tenderness or guarding Rectal (female): Present deferred (female): Present deferred Skin: Present intact; Absent cyanosis or jaundice Neuro: Present alert, awake and oriented x 3 Extremities: Present normal inspection; Absent clubbing or cyanosis Psychiatric: Present normal affect and cooperative Meds Home Medications and Allergies Home Medications ?Medication ?Instructions ?Recorded ?Confirmed ?Type atorvastatin 20 mg tablet 20 mg PO HS 90 days ##90 06/0406/01/25 History cetirizine 10 mg tablet 10 mg PO DAILY Allergy sympt oms 30 10/26/17 06/01/25 History days ##30 clopidogrel 75 mg tablet 75 mg PO DAILY 90 days ##90 10/26/17 06/01/25 History aspirin 81 mg tablet,delayed 81 mg PO DAILY 05/06/18 0 06/01/25 History release atenolol 25 mg tablet 25 mg PO DAILY 06/03/2005/18 History escitalopram oxalate 5 mg tablet 5 mg PO DAILY 0 06/01/25 History ipratropium 0.5 mg-albuterol 3 mg 3 ml inhalation QIDP PRN Shortness 05/03/22 06/01/25 History (2.5 mg base)/3 mL nebulization Of Breath soln bumetanide 1 mg tablet 1 mg PO BIDL Fluid 30 days # 0 tabs 12/04/23 06/01/25 Rx colchicine 0.6 mg tablet 0.6 mg PO DAILYP PRN GOUT 06/01/25 History oxybutynin chloride 10 mg 10 mg PO DAILY #90 tabs 08/1706/01/25 Rx tablet,extended release 24 hr spironolactone 50 mg tablet 50 mg PO BID Fluid 5 06/01/25 History estradiol 0.01% (0.1 mg/gram) 1 applic vaginal .TWICE WEEKLY 03/14/25 06/01/25 History vaginal cream gabapentin 300 mg capsule 600 mg PO BID 03/14/2506/01 History ondansetron 8 mg disintegrating 8 mg PO Q8HP PRN Nause a And 03/14/25 06/01/25 History tablet Vomiting prochlorperazine maleate 10 mg 10 mg PO Q6HP PRN nause a and 03/14/25 06/01/25 History tablet (Compazine) vomiting promethazine 25 mg tablet 25 mg PO TIDP PRN nausea and 03/14/25 06/01/25 History vomiting insulin glargine 100 unit/mL (3 40 unit (0.4 mL) SQ DA DANGELO #15 mL 03/16/25 06/01/25 Rx mL) subcutaneous pen (Lantus Solostar U-100 Insulin) pen needle, diabetic 31 gauge x #100 ea 03/16/2506/02 Rx 1/4 sitagliptin phosphate 50 mg tablet 50 mg PO DAILYDM 30 days #30 tabs 03/16/25 06/01/25 Rx (Januvia) pen needle, diabetic 31 gauge x #1,200 ea 04/02/25 History 3/16 dexamethasone 4 mg tablet 4 mg PO BID chemotherapy #36 tabs 04/03/25 06/01/25 Rx folic acid 1 mg tablet 1 mg PO DAILY #30 tabs 04/0306/01/25 Rx fluticasone propionate 50 1 spray intranasal DAILY 08/1106/01/25 History mcg/actuation nasal spray,suspension New Prescriptions to Start Prescriptions: Allergies Allergy/AdvReac Type Severity Reaction Status Date / Time Sulfa (Sulfonamide Allergy Unknown BLISTERING Verified 05/28/25 13:28 Antibiotics) OF THROAT levofloxacin (From Levaquin) Allergy BLISTERS Verified 05/28/25 13:28 IN THROAT Results Laboratory Findings 06/03/25 05:31 06/03/25 05:31 Abnormal lab findings: Abnormal Labs 06/01/25 06/01/25 06/01/25 13:08 15:55 17:05 WBC 13.4 H RBC 3.67 L Hct 36.8 L MCV 100.3 H MCH 33.5 H Plt Count 434 H MPV 10.5 H Neut % (Auto) Lymph % (Auto) Collier % (Auto) 13.9 H Neut # (Auto) 9.2 H Lymph # (Auto) Collier # (Auto) 1.9 H Neutrophils % (Manual) 79 H Lymphocytes % (Manual) 5 L Monocytes % (Manual) 14 H VBG pCO2 53.5 H VBG HCO3 30.9 H VBG Total CO2 32.5 H VBG Base Excess 5.7 H Sodium 134 L BUN 28 H Creatinine Estimated GFR 55 L Est GFR ( Amer) Glucose 295 H POC Glucose Hemoglobin A1c AST NT-Pro-B Natriuret Pep 10888 H Urine Nitrate Positive A 06/01/25 06/02/25 06/02/25 22:28 05:45 11:46 WBC 15.8 H RBC 3.60 L Hct 36.0 L MCV 100.0 H MCH 34.2 H Plt Count MPV 10.6 H Neut % (Auto) Lymph % (Auto) Collier % (Auto) 14.4 H Neut # (Auto) 10.4 H Lymph # (Auto) Collier # (Auto) 2.3 H Neutrophils % (Manual) Lymphocytes % (Manual) Monocytes % (Manual) 10 H VBG pCO2 VBG HCO3 VBG Total CO2 VBG Base Excess Sodium BUN 28 H Creatinine 1.20 H Estimated GFR 45 L Est GFR ( Amer) 54 L Glucose POC Glucose 320 H* 120 H 277 H Hemoglobin A1c 8.9 H AST 60 H D NT-Pro-B Natriuret Pep Urine Nitrate 06/02/25 06/02/25 06/03/25 16:58 22:03 05:31 WBC RBC 3.60 L Hct 36.3 L MCV 100.8 H MCH 34.4 H Plt Count MPV 11.1 H Neut % (Auto) 81.5 H Lymph % (Auto) 6.2 L Collier % (Auto) Neut # (Auto) 8.1 H Lymph # (Auto) 0.6 L Collier # (Auto) Neutrophils % (Manual) 90 H Lymphocytes % (Manual) 5 L Monocytes % (Manual) VBG pCO2 VBG HCO3 VBG Total CO2 VBG Base Excess Sodium BUN 36 H D Creatinine 1.50 H D Estimated GFR 34 L Est GFR ( Amer) 42 L D Glucose 207 H D POC Glucose 155 H 162 H Hemoglobin A1c AST NT-Pro-B Natriuret Pep Urine Nitrate 06/03/25 06:15 WBC RBC Hct MCV MCH Plt Count MPV Neut % (Auto) Lymph % (Auto) Collier % (Auto) Neut # (Auto) Lymph # (Auto) Collier # (Auto) Neutrophils % (Manual) Lymphocytes % (Manual) Monocytes % (Manual) VBG pCO2 VBG HCO3 VBG Total CO2 VBG Base Excess Sodium BUN Creatinine Estimated GFR Est GFR ( Amer) Glucose POC Glucose 250 H Hemoglobin A1c AST NT-Pro-B Natriuret Pep Urine Nitrate Assessment and Plan *Assessment and plan (1) Acute and chronic respiratory failure with hypoxia: Status: Acute Category: Medical Code(s): J96.21 - Acute and chronic respiratory failure with hypoxia Plan Ms. Rivers is a 69-year-old female prior history of adenocarcinoma lung COPD chronic hypoxic respiratory failure heart failure preserved ejection fraction presented to the ER with worsening mentation and shortness of breath and pulmonary was called for further evaluation and management. Completed treatment itraconazole for presumed left upper lobe cavitary lesion which was eventually biopsied that resulted positive for adenocarcinoma lung. She previously received immunotherapy pembrolizumab for her lung cancer subsequent CT scans concern for worsening size of the noted left upper lobe lung nodule and was eventually initiated on salvage chemotherapy with pemetrexed in March 2025 Afebrile. Hemodynamically stable. Neutrophilic predominant leukocytosis upon admission. Blood gas upon admission mild hypercarbic respiratory failure with a pH of 7.38 and pCO2 of 53.5. COVID-19 and flu PCR panel negative CTA upon admission continue to show left upper lobe mass. No evidence airspace disease/consolidative changes noted. No significant lymphadenopathy appreciated. Ms. Rivers at baseline supposed to be using 2 to 3 L nasal oxygen supplementation at rest which she has not been compliant with. Admits compliance with oxygen supplementation at night. Admits to using DuoNebs 2-3 times a day. Examination mild wheezing on auscultation. Mild respiratory distress. Also receiving steroids for her hoarseness of voice as per oncology recommendations. Admits significant improvement in her altered mentation after initiating treatment for her presumed UTI. Reluctant to quit smoking. Plan: -Continue oxygen supplementation at rest to maintain O2 saturation goal of 90% and above. Saturating 87% on 2 L, increased to 3 L. Patient also mouth breather. Requesting portable oxygen concentrator, will follow-up -DuoNebs every 6 hours on a scheduled basis -Scheduled to follow with oncology as an outpatient basis for the concerning left upper lobe nodule and ENT for the new hoarseness.
--- NOTE | 2025-06-03 10:24 | HMH.PTEV ---
Physical Therapy Evaluation Rehab PT IP Evaluation Start: 06/03/25 08:20 Freq: ONCE Status: Active Protocol: Document 06/03/25 10:17 ERA (Rec: 06/03/25 10:24 ERA [id number]) Subjective/History History History Per H&P: Carolina Rivers is a 69-year-old female with a medical history significant for lung adenocarcinoma, COPD on 2 to 3 L baseline, HFpEF with G2 DD, type 2 diabetes with neuropathy, CAD, anxiety/depression presents with reported altered mental status and shortness of breath. On my evaluation, patient looked distressed but could not pinpoint a specific symptoms. She states she is not feeling well. On further inquiry, she states that she has been having abdominal pain, increased urinary frequency shortness of breath, but no chest pain. Her last chemo infusion was reportedly on 05/21 for lung adenocarcinoma. Follows with Dr. Morrow. Workup in the ED significant for WBC 13 .4, BNP 10,500, UA grossly abnormal, mini respiratory panel negative. She was given IV ceftriaxone 1 g. Given these findings ED provider discussed case with manage decided to admit patient for acute metabolic encephalopathy, UTI, and HFpEF exacerbation. Subjective Subjective Pt's daughter's in room and confirmed hx. Pt reports she lives with her son in a single-story home with ~3 LOUIE. Pt reports she is normally IND using a cane. Pt also owns a RW and rollator. Pt not oriented to birthday but able to state name and place. New diagnosis of No cancer in past 12 months? [facility] How much help from another person do you currently need... Turning from your None back to your side while in a flat bed without using bedrails? Moving from lying on None back to sitting on the side of a flat bed without using bedrails? Moving to and from a A little bed to a chair ( including a wheelchair)? Standing up from a A little chair using your arms? (e.g., wheelchair, bedside chair) Walking in hospital A little room? Climbing 3-5 steps A little with a railing? Mobility Score 20 Mobility Level [facility] Mobility 6 Walk 10 steps or more Mobility Calculator Rehab PT IP Eval Objective Appearance Patient Behavior Appropriate,Cooperative Patient Orientation Person,Place Difficulty following mild instructions Speech Pattern Clear Ambulation Patient Able to Yes Ambulate Ambulation Observation IP General Gait Narrow Based Gait Pattern Observation Ambulation Distance 25 (feet) Ambulation Assistive None Device Ambulation Ability Minimal x 1 (25% assist) Balance Ability to Arise Able, uses arms to help Sitting Balance Steady, safe Standing Balance Steady, wide stance Dynamic Sitting Good Balance Ability Dynamic Standing Fair Balance Ability Transfers Bed Transfer Ability Independent Sit to Stand Bed Supervision/Stand by Transfer Ability Rehab PT IP prob,goals,plan Problems Date of Evaluation: 06/03/25 PT IP Problems Transfers,Gait,Balance,Safety Rehab Potential Rehab Potential Good Plan PT Intervention Plan Transfers,Gait,Balance,Safety Other Intervention 1-2 times Plan PT Plan Frequency Daily Duration Goals Met Discharge Goals Bed Transfer Ability Independent Sit to Stand Chair Independent Transfer Ability Ambulation Assistive Rolling Walker Device Ambulation Distance 40 (feet) Discharge Plan PT Discharge Plan Initial physical therapy evaluation performed. Patient presents below baseline at this time in functional mobility, transfers, gait, and strength. Pt would benefit from skilled PT while at [facility] to educate on AD use and improve gait stability until goals are met. Pt most appropriate to d/c home when deemed medically necessary d/t current level of mobility, home set-up, and family support. PT recommending home health PT services to address deficits. Eval Complexity Eval Charge Codes 02718 - Moderate Complexity PHYSICIAN CERTIFICATION: I certify the specified therapy services for Carolina Rivers are required, authorized, and reviewed every 30 days.
--- NOTE | 2025-06-03 10:46 | SW/DCPLANNER ---
Addendum entered by Allegra Pettit 06/03/25 12:59: [facility] has accepted the patient. Rosalva Zuluaga Addendum entered by Allegra Pettit 06/03/25 12:03: I will fax patient's information to [facility] and will update once i hear back if they can accept or not. Rosalva Zuluaga Original Note: I spoke w/ patient and her two daughters regarding plans once medically stable for discharge. PT evaluated patient and recommended home health services w/ rolling walker. Patient and daughters are agreeable to home health services (no preference) and does have a rollator walker at home. Per MD patient will discharge home tomorrow pending no setbacks.
--- NOTE | 2025-06-03 11:12 | HMH.OTEV ---
OT Evaluation Rehab OT IP Evaluation Start: 06/03/25 08:20 Freq: ONCE Status: Active Protocol: Document 06/03/25 11:04 TREVOR (Rec: 06/03/25 11:12 TREVOR [id number]) Rehab OT IP Assessment Subjective History Per H&P: Carolina Rivers is a 69-year-old female with a medical history significant for lung adenocarcinoma, COPD on 2 to 3 L baseline, HFpEF with G2 DD, type 2 diabetes with neuropathy, CAD, anxiety/depression presents with reported altered mental status and shortness of breath. On my evaluation, patient looked distressed but could not pinpoint a specific symptoms. She states she is not feeling well. On further inquiry, she states that she has been having abdominal pain, increased urinary frequency shortness of breath, but no chest pain. Her last chemo infusion was reportedly on 05/21 for lung adenocarcinoma. Follows with Dr. Morrow. Workup in the ED significant for WBC 13 .4, BNP 10,500, UA grossly abnormal, mini respiratory panel negative. She was given IV ceftriaxone 1 g. Given these findings ED provider discussed case with manage decided to admit patient for acute metabolic encephalopathy, UTI, and HFpEF exacerbation. Subjective Just a couple. Pt supine in bed when therapy entered room. Pt's 2 daughters were present for session and confirmed hx. Pt reports she lives with her son in a single-story home with ~3 LOUIE with no HR. Pt reports she is normally IND using a cane for FM and also owns a RW and rollator. Pt not oriented to birthday year but able to state name and place. Pt reports they still drive, and are ind in ADLs and IADLs. Pt reports they are normally on O2, currently at 2 L. Pt agreed to FM task. Pt went from supine to EOB ind. Pt then able to use dynamic sitting balance and don socks. Pt then completed STS with SBA. Pt then completed FM task of aprox 10 ft with Min A x1. Pt demo fair balance for FM task. Pt then reported they wanted to sit in chair. Pt able to complete FM task of aprx 5 ft to chair and use arm rests to lower body into chair with CGA. Pt left sitting in chair with daughter present and chair alarm placed on pt and call light and all other needs within reach. Objective Patient Orientation Person,Place Right Upper WFL Extremity Gross ROM Left Upper Extremity WFL Gross ROM Bed Mobility bed mobility-scooting,bed mobility - supine/sit Assist Level Independent Transfer Training Sit/Stand Transfer Assist Level Supervision/Stand by Chair Transfer Contact Guard/Hand Hold Ability Chair Transfer Sit to/from Ambulatory Technique Chair Transfer None Assistive Devices Lower Body Dressing Independent Ability Decrease in Yes Endurance Rehab OT IP prob,goals,plan Problems Date of Evaluation: 06/03/25 Rehab Potential Rehab Potential Innapropriate for Skilled Therapy Equipment Needs Assistive Devices Rolling / Wheeled Walker Discharge Plan OT Discharge Plan At this time, pt is at baseline in occupational performance and would not benefit from skilled acute OT services while at [facility]. Once medically stable, pt is able to DC home and could benefit from OT services if desired to help improve QOL and improve functional occupational performance. Eval Complexity Eval Charge Codes 80095 - Moderate Complexity PHYSICIAN CERTIFICATION: I certify the specified therapy services for Carolina Rivers are required, authorized, and reviewed every 30 days.
--- NOTE | 2025-06-03 11:38 | PC.NURSE ---
pt ambulated one lap around the hallway with rolling walker and portable O2 on 2LNC. pt did have to take one break midway due to shortness of breath. no complaints or pain or weakness.
--- NOTE | 2025-06-03 12:37 | P.PN_ITS ---
Subjective *Date: 06/03/25 *Time: 12:37 Interval history: Patient still looks ill this morning but better than yesterday. In no acute distress. Stable on 2 L oxygen during rounds. Family at bedside, discussed goals of care and further treatment for her UTI as well as patient's continued improvement and dispo plan. Would like for her to ambulate today with her walker. Encourage p.o. intake. Continue to monitor kidney function. Anticipate discharge tomorrow. Therapy working with patient today. Denies nausea or vomiting. No chest pain. Medical Exam Vital signs and Labs for Last 24 Hours: Vital Signs Temp Pulse Pulse Resp BP Pulse Ox O2 Del Method 06/03/25 12:00 97.8 F 88 18 124/62 90 L Nasal Cannula 06/03/25 11:33 78 06/03/25 11:33 80 06/03/25 11:00 Nasal Cannula 06/03/25 09:00 Nasal Cannula 06/03/25 08:00 Nasal Cannula 06/03/25 08:00 97.6 F 102 H 18 121/73 90 L Nasal Cannula 06/03/25 06:24 Nasal Cannula 06/03/25 06:12 99 H 06/03/25 06:12 101 H 06/03/25 06:12 90 L Nasal Cannula 06/03/25 05:00 Nasal Cannula 06/03/25 04:00 98.5 F 103 H 18 133/65 93 L Nasal Cannula 06/03/25 03:00 Nasal Cannula 06/03/25 01:00 Nasal Cannula 06/03/25 00:00 98.8 F 104 H 18 131/64 91 L Nasal Cannula 06/02/25 23:00 Nasal Cannula 06/02/25 21:00 Nasal Cannula 06/02/25 20:00 Nasal Cannula 06/02/25 19:55 97.7 F 103 H 18 141/84 H 89 L Nasal Cannula 06/02/25 19:00 Nasal Cannula 06/02/25 18:45 92 L Nasal Cannula 06/02/25 18:45 98 H 06/02/25 18:45 95 H 06/02/25 17:10 Nasal Cannula 06/02/25 16:00 98.0 F 103 H 28 H 139/77 90 L Nasal Cannula 06/02/25 16:00 93 L Nasal Cannula 06/02/25 15:10 Nasal Cannula 06/02/25 13:10 Nasal Cannula 06/02/25 12:45 97 H 06/02/25 12:45 95 H O2 Flow Rate 06/03/25 12:00 06/03/25 11:33 06/03/25 11:33 06/03/25 11:00 2 06/03/25 09:00 2 06/03/25 08:00 2 06/03/25 08:00 4 06/03/25 06:24 4 06/03/25 06:12 06/03/25 06:12 06/03/25 06:12 4 06/03/25 05:00 4 06/03/25 04:00 4 06/03/25 03:00 4 06/03/25 01:00 4 06/03/25 00:00 4 06/02/25 23:00 2 06/02/25 21:00 2 06/02/25 20:00 2 06/02/25 19:55 2.5 06/02/25 19:00 2.5 06/02/25 18:45 2 06/02/25 18:45 06/02/25 18:45 06/02/25 17:10 2.5 06/02/25 16:00 2.5 06/02/25 16:00 2.5 06/02/25 15:10 2.5 06/02/25 13:10 2.5 06/02/25 12:45 06/02/25 12:45 Intake and Output 06/02/25 06/03/25 06/03/25 23:59 07:59 15:59 Intake Total 0 / 370 200 / 250 50 / 250 Output Total 0 / 1900 300 / 300 Balance 0 / -1530 200 / -50 -250 / -50 Intake: Intake, Oral Amount 0 / 320 200 / 200 Intake, Total IV Amount 50 / 50 Ceftriaxone 1 gm 1 gm In 0.9 % 50 / 50 Sodium Chloride 50 ml @ 100 mls /hr IV Q24H [facility] Rx#:[id number] Output: Output, Urine Amount 0 / 1900 300 / 300 Other: Number of Unmeasured Voids 1 0 Weight 72.263 kg Patient Weight 06/03/25 23:59 Weight 72.263 kg Laboratory Results - last 24 hr 06/02/25 05:45: Hemoglobin A1c 8.9 H 06/02/25 16:58: POC Glucose 155 H 09/16/25 22:03: POC Glucose 162 H 06/03/25 05:31: WBC 10.0 D, RBC 3.60 L, Hgb 12.4, Hct 36.3 L, MCV 100.8 H, MCH 34.4 H, MCHC 34.2, RDW 16.2, Plt Count 318, MPV 11.1 H, Neut % (Auto) 81.5 H, Lymph % (Auto) 6.2 L, [place] % (Auto) 3.8, Eos % (Auto) 0.1, Baso % (Auto) 0.9, Neut # (Auto) 8.1 H, Lymph # (Auto) 0.6 L, [place] # (Auto) 0.4, Eos # (Auto) 0.0, Baso # (Auto) 0.1, Total Counted 100, Neutrophils % (Manual) 90 H, Lymphocytes % (Manual) 5 L, Monocytes % (Manual) 5, Platelet Estimate Normal, RBC Morphology Normal, Sodium 136, Potassium 4.0, Chloride 98, Carbon Dioxide 27, Anion Gap 15.0, BUN 36 H D, Creatinine 1.50 H D, Estimated Creat Clear 40, Estimated GFR 34 L, Est GFR ( Amer) 42 L D, Glucose 207 H D, Calcium 9.7, Magnesium 1.9, Total Bilirubin 0.7, AST 25 D, ALT 22, Alkaline Phosphatase 100, Total P rotein 7.1, Albumin 4.1, Globulin 3.0, Albumin/Globulin Ratio 1.4 06/03/25 06:15: POC Glucose 250 H I & O for Labs for Last 24 Hours: Intake & Output 05/31/25 06/01/25 06/02/25 06/03/25 23:59 23:59 23:59 23:59 Intake Total 50 / 170 170 / 370 250 / 250 Output Total 200 / 700 1900 / 1900 300 / 300 Balance -150 / -530 -1730 / -1530 -50 / -50 Weight 70.307 kg 72.847 kg 72.263 kg Microbiology Reports for the Last 24 Hours: Microbiology 06/01/25 17:05 Urine,Clean Catch Urine Culture - Final Escherichia coli Constitutional: Present no acute distress, average body habitus, chronically ill appearing and cooperative Comment:: Weak Head: Present atraumatic and normocephalic ENT: Present normal exam Respiratory: Present normal respiratory effort; Absent rhonchi, wheezes (Interval improvement) or crackles Cardiac: Present Reg Rate and Rhythm GI: Present soft and normal bowel sounds; Absent distention or tenderness Extremities: Present normal inspection and full ROM Skin: Present intact; Absent erythema Neuro: Present Grossly Intact, alert, awake, oriented x 3 and moves all extremities Assessment and Plan *Assessment and plan (1) Acute UTI: Status: Acute Category: Medical Code(s): N39.0 - Urinary tract infection, site not specified (2) AMS (altered mental status): Status: Acute Qualifiers: Altered mental status type: disorientation Qualified Code(s): R41.0 - Disorientation, unspecified Category: Medical Code(s): R41.82 - Altered mental status, unspecified (3) (HFpEF) heart failure with preserved ejection fraction: Status: Acute Category: Medical Code(s): I50.30 - Unspecified diastolic (congestive) heart failure (4) Heart failure with preserved ejection fraction: Status: Acute Qualifiers: Heart failure chronicity: acute on chronic Qualified Code(s): I50.33 - Acute on chronic diastolic (congestive) heart failure Category: Medical Code(s): I50.30 - Unspecified diastolic (congestive) heart failure (5) Smoking greater than 30 pack years: Status: Acute Category: Social Hx Code(s): F17.210 - Nicotine dependence, cigarettes, uncomplicated Plan Carolina Rivers is a 69-year-old female with a medical history significant for lung adenocarcinoma, COPD on 2 to 3 L baseline, HFpEF with G2 DD, type 2 diabetes with neuropathy, CAD, anxiety/depression presents with reported altered mental status and shortness of breath. On my evaluation, patient looked distressed but could not pinpoint a specific symptoms. She states she is not feeling well. On further inquiry, she states that she has been having abdominal pain, increased urinary frequency shortness of breath, but no chest pain. Her last chemo infusion was reportedly on 05/21 for lung adenocarcinoma. Follows with Dr. Morrow. Workup in the ED significant for WBC 13.4, BNP 10,500, UA grossly abnormal, mini respiratory panel negative. She was given IV ceftriaxone 1 g. Given these findings ED provider discussed case with manage decided to admit patient for acute metabolic encephalopathy, UTI, and HFpEF exacerbation. Showing some improvement. Continue to work with therapy. Anticipate discharge tomorrow. Problems addressed as follows: #Acute metabolic encephalopathy, resolving #UTI ? Endorses urinary frequency on admission. UA grossly abnormal. UCx grew Proteus mirabilis on 04/22/2025 sensitive to ceftriaxone. ? Urine culture this admission positive for E. coli, pansensitive. Will continue ceftriaxone 1 g daily. Transition to oral regimen at discharge. - Blood cultures remain negative. - White count normalized today to 10. Hemoglobin 12.4. Kidney function with slight bump with BUN 36, creatinine 1.5. Holding diuretics today. Repeat CBC, CMP, magnesium ordered for the morning #HFpEF exacerbation ? Patient endorses increased shortness of breath, productive cough, leg swelling. Has been taking her diuretics. Initial BNP 10,500. ? ECHO 12/03/2023 LVEF 55%, grade 2 diastolic dysfunction. ? Has diuresed well. Stable on 2 L oxygen. Holding Bumex and spironolactone due to bump in creatinine to 1.5. - Echo obtained with mildly reduced EF of 45%. Mild biatrial dilatation. New finding of HFrEF. #Left upper lobe lung adenocarcinoma ? Follows with Dr. Morrow. Last chemoinfusion reportedly on 05/21/2025. ? Continue home dexamethasone 4 mg daily. #COPD ? DuoNebs scheduled every 6 hours. Reports baseline oxygen of 2 L at night while asleep. Currently on 2 L continuous. #Type 2 diabetes ? Hemoglobin A1c 9.5% in February. Repeat A1c 8.9. ? LDSSI, ACHS glucose checks. #CAD ? Continue home aspirin. Holding statin with bodyaches. #Anxiety/depression Neuropathy ? Resume home Lexapro 5 mg daily - Resume gabapentin 600 mg twice daily. Full code DVT prophylaxis: Lovenox 40 mg Regular diet
[2025-06-03 16:34] LABS: POC Glucose,Bedside 450 gm/dL (70-110)
--- NOTE | 2025-06-03 17:01 | PC.NURSE ---
pt sitting on the side of the bed with daughters present at this time. requiring 2LNC to maintain sats >90%. pt ambulated the halls once this shift and has gotten to BSC and chair numerous times this shift. pt showered with the help of her daughter. fsbs at 1100 was 382. fsbs at 1630 was 450. pt treated accordingly with SSI. no complaints of pain. no needs at this time. call light within reach.
[2025-06-03 20:03] LABS: POC Glucose,Bedside 266 gm/dL (70-110)
[2025-06-03] MEDS: INSULIN GLARGINE 100 UNITS/ML 3ML FLEXPEN 20 UNIT SUBCUT (20:32)
[2025-06-03] MEDS: MELATONIN 5MG TABLET 5 MG PO (23:27)
[2025-06-04] VITALS: BP 93/48; PULSE 89; RESP 14; TEMP 36.4; O2SAT 93; O2SAT 94
[2025-06-04 04:00] VITALS: BP 86/53; PULSE 72; RESP 16; TEMP 37; O2SAT 91; BMI 28.4
[2025-06-04 05:53] VITALS: PULSE 76; PULSE 77; O2SAT 85
[2025-06-04] MEDS: IPRATROPIUM/ALBUTEROL 3 ML NEB IH (05:53)
[2025-06-04 06:15] LABS: Hematocrit 31.9 % (37.0-47.0); Immature Granulocytes % 6.3 %; Mean Corpuscular HGB Conc 33.9 g/dL (31.8-35.4); Mean Corpuscular Hemoglobin 33.6 pg (27.0-31.2); Mean Corpuscular Volume 99.4 fl (81-99); Nucleated Red Blood Cells % 0 %; Platelet Count 265 K/mm3 (142-424); Red Blood Count 3.21 M/mm3 (4.20-5.40); Red Cell Distribution Width-SD 57.6 fL; White Blood Count 12.3 K/mm3 (4.8-10.8)
[2025-06-04 06:25] LABS: Hemoglobin 10.9 g/dL (12.2-16.2)
[2025-06-04 06:29] LABS: POC Glucose,Bedside 279 gm/dL (70-110)
[2025-06-04 06:30] LABS: Alanine Aminotransferase 17 U/L (12-78); Albumin Level 3.7 g/dl (3.5-5.0); Albumin/Globulin Ratio 1.4 (1.1-1.8); Alkaline Phosphatase 83 U/L (38-126); Anion Gap 9.7 mEq/L (5-15); Aspartate Amino Transferase 22 U/L (14-36); Bilirubin,Total 0.6 mg/dl (0.2-1.3); Blood Urea Nitrogen 46 mg/dl (7-17); Calcium 8.6 mg/dl (8.4-10.2); Carbon Dioxide 29 mmol/L (22.0-30.0); Chloride 94 mmol/L (98-107); Creatinine Clearance Estimated 45 mL/min (50-200); Creatinine,Serum 1.30 mg/dl (0.52-1.04); Estimated Glomerular Filt Rate 41 ml/min (>60); GFR (African American) 49 ML/MIN (>60); Globulin 2.6 g/dL (1.3-3.2); Glucose 231 mg/dl (74-100); Magnesium 2.0 mg/dl (1.6-2.3); Potassium 3.7 mmoL/L (3.5-5.1); Sodium 129 mmol/L (136-145); Total Protein,Serum 6.3 g/dl (6.3-8.2)
[2025-06-04] MEDS: humaLOG 100 UNITS/ML 10ML VIAL (SSI) SUBCUT ×2 (06:33→10:45)
[2025-06-04 07:07] LABS: RBC Morphology Normal; Total Cells Counted 100
[2025-06-04 07:48] VITALS: BP 117/58; PULSE 86; RESP 18; TEMP 36.6; O2SAT 93
--- NOTE | 2025-06-04 07:49 | EXP.DC.SUM ---
General Admission date:: 06/01/25 Discharge date: 06/04/25 HPI HPI HPI: Carolina Rivers is a 69-year-old female with a medical history significant for lung adenocarcinoma, COPD on 2 to 3 L baseline, HFpEF with G2 DD, type 2 diabetes with neuropathy, CAD, anxiety/depression presents with reported altered mental status and shortness of breath. On my evaluation, patient looked distressed but could not pinpoint a specific symptoms. She states she is not feeling well. On further inquiry, she states that she has been having abdominal pain, increased urinary frequency shortness of breath, but no chest pain. Her last chemo infusion was reportedly on 05/21 for lung adenocarcinoma. Follows with Dr. Morrow. Workup in the ED significant for WBC 13.4, BNP 10,500, UA grossly abnormal, mini respiratory panel negative. She was given IV ceftriaxone 1 g. Given these findings ED provider discussed case with manage decided to admit patient for acute metabolic encephalopathy, UTI, and HFpEF exacerbation. Hospital Course Hospital Course Hospital Course: Carolina Rivers is a 69-year-old female with a medical history significant for lung adenocarcinoma, COPD on 2 to 3 L baseline, HFpEF with G2 DD, type 2 diabetes with neuropathy, CAD, anxiety/depression presents with reported altered mental status and shortness of breath. On my evaluation, patient looked distressed but could not pinpoint a specific symptoms. She states she is not feeling well. On further inquiry, she states that she has been having abdominal pain, increased urinary frequency shortness of breath, but no chest pain. Her last chemo infusion was reportedly on 05/21 for lung adenocarcinoma. Follows with Dr. Morrow. Workup in the ED significant for WBC 13.4, BNP 10,500, UA grossly abnormal, mini respiratory panel negative. She was given IV ceftriaxone 1 g. Given these findings ED provider discussed case with manage decided to admit patient for acute metabolic encephalopathy, UTI, and HFpEF exacerbation. Showed improvement with treat for UTI and gentle diuresis. Overall doing well. On baseline oxygen. Stable discharge home to complete antibiotics. Recommend close follow-up with oncology to discuss further therapy. Problems addressed as follows: #Acute metabolic encephalopathy, resolving #UTI ? Endorses urinary frequency on admission. UA grossly abnormal. UCx grew Proteus mirabilis on 04/22/2025 sensitive to ceftriaxone. Urine culture this admission positive for E. coli, pansensitive. Treated with 4 days of ceftriaxone. Transition to oral cefdinir to complete therapy. Blood cultures remain negative. White count normalized. Overall doing well. Afebrile. Mentation improved. #HFpEF exacerbation ? Patient endorses increased shortness of breath, productive cough, leg swelling. Has been taking her diuretics. Initial BNP 10,500. ECHO 12/03/2023 LVEF 55%, grade 2 diastolic dysfunction. Initiated on diuretic regimen. Diuresed well and was able to decrease to 2 L oxygen which is her baseline. Held diuretics for the last day or 2 during admission due to bump in creatinine. Creatinine improved 1.3 with BUN 46/day of discharge. Echo obtained during admission showing mild reduction in her EF of 45% this is a new finding of HFmrEF. Continue GDMT for heart failure. #Left upper lobe lung adenocarcinoma ? Follows with Dr. Morrow. Last chemoinfusion reportedly on 05/21/2025. Has follow-up in the coming week. Resumed dexamethasone during admission. Recommend taper, will decrease to 2 mg daily for 3 days, 1 mg daily or 3 days, and then discontinue. #COPD: DuoNebs scheduled every 6 hours. Reports baseline oxygen of 2 L at night while asleep. Able to wean to 2L supplemental O2 during admission. #Type 2 diabetes: Hemoglobin A1c 9.5% in February. Repeat A1c 8.9. treated with LDSSI, ACHS glucose checks. Resume basal insulin at discharge, Glucose elevated after initiation of steroids. #CAD: Continue home aspirin. Resume statin at discharge. #Anxiety/depression Neuropathy ? Continue home Lexapro 5 mg daily, gabapentin 600 mg twice daily. Total time spent on discharge 36 minutes in counseling, documentation, chart review, and direct care with patient. Exam Data for Last 24 hours Vital signs and Labs for Last 24 Hours: Temp Pulse Resp BP Pulse Ox O2 Del Method O2 Flow Rate 98.6 F 76 16 86/53 L 85 L Nasal Cannula 4 06/04/25 04:00 06/04/25 05:53 06/04/25 04:00 06/04/25 04:00 06/04/25 05:53 06/04/25 06:51 06/04/25 06:51 Laboratory Results - last 24 hr 06/03/25 16:26: POC Glucose 450 H* 06/03/25 19:55: POC Glucose 266 H 06/04/25 05:21: WBC 12.3 H, RBC 3.21 L, Hgb 10.9 L D, Hct 31.9 L, MCV 99.4 H, MCH 33.6 H, MCHC 33.9, RDW 15.8, Plt Count 265, MPV 11.3 H, Neut % (Auto) 67.7, Lymph % (Auto) 10.2, Stephens % (Auto) 14.7 H, Eos % (Auto) 0.5, Baso % (Auto) 0.6, Neut # (Auto) 8.3 H, Lymph # (Auto) 1.3, Stephens # (Auto) 1.8 H, Eos # (Auto) 0.1, Baso # (Auto) 0.1, Total Counted 100, Neutrophils % (Manual) 69, Lymphocytes % (Manual) 12, Monocytes % (Manual) 19 H, Platelet Estimate Normal, RBC Morphology Normal, Sodium 129 L, Potassium 3.7, Chloride 94 L, Carbon Dioxide 29, Anion Gap 9.7, BUN 46 H D, Creatinine 1.30 H, Estimated Creat Clear 45, Estimated GFR 41 L, Est GFR ( Amer) 49 L, Glucose 231 H, Calcium 8.6, Magnesium 2.0, Total Bilirubin 0.6, AST 22, ALT 17, Alkaline Phosphatase 83, Total Protein 6.3, Albumin 3.7, Globulin 2.6, Albumin/Globulin Ratio 1.4 06/04/25 06:11: POC Glucose 279 H I & O for Last 24 hours: Intake & Output 06/01/25 06/02/25 06/03/25 06/04/25 23:59 23:59 23:59 23:59 Intake Total 50 / 170 170 / 370 490 / 520 Output Total 200 / 700 1900 / 1900 500 / 500 Balance -150 / -530 -1730 / -1530 - Weight 70.307 kg 72.847 kg 72.263 kg 70.035 kg Microbiology Reports for the Last 24 Hours: Microbiology 06/01/25 17:05 Urine,Clean Catch Urine Culture - Final Escherichia coli Constitutional Constitutional: no acute distress, average body habitus, chronically ill appearing and cooperative *Routine HEENT Exam Head: Present normocephalic Eye: Present EOMI ENT: Present mucous membranes moist *Routine Neck Exam Neck: Present supple and full ROM; Absent JVD *Routine Respiratory Exam Respiratory: Present decreased breath sounds, wheezes, normal respiratory effort, able to speak in complete sentences and symmetric chest movement *Routine Cardiovascular Exam Cardiovascular: Present RRR *Routine Abdominal Exam Abdominal: Present soft and normoactive bowel sounds; Absent tenderness or distended *Routine Rectal Exam Patient deferred: visual exam *Routine Exam Patient deferred: external exam *Routine Extremities Exam Extremities: Present full ROM Comments: Scattered bruising *Routine Skin Exam Skin: Present intact Comments: Scattered bruising on extremities *Routine Neurological Exam Neurological: Present alert, oriented X3, moving all extremities and normal speech Results Data Completed and Pending Labs on day of discharge: Labs from last 24 hours 06/04/25 06/04/25 06/03/25 06:11 05:21 19:55 WBC 12.3 H RBC 3.21 L Hgb 10.9 L D Hct 31.9 L MCV 99.4 H MCH 33.6 H MCHC 33.9 RDW 15.8 Plt Count 265 MPV 11.3 H Neut % (Auto) 67.7 Lymph % (Auto) 10.2 Stephens % (Auto) 14.7 H Eos % (Auto) 0.5 Baso % (Auto) 0.6 Neut # (Auto) 8.3 H Lymph # (Auto) 1.3 Stephens # (Auto) 1.8 H Eos # (Auto) 0.1 Baso # (Auto) 0.1 Total Counted 100 Neutrophils % (Manual) 69 Lymphocytes % (Manual) 12 Monocytes % (Manual) 19 H Platelet Estimate Normal RBC Morphology Normal Sodium 129 L Potassium 3.7 Chloride 94 L Carbon Dioxide 29 Anion Gap 9.7 BUN 46 H D Creatinine 1.30 H Estimated Creat Clear 45 Estimated GFR 41 L Est GFR ( Amer) 49 L Glucose 231 H POC Glucose 279 H 266 H Calcium 8.6 Magnesium 2.0 Total Bilirubin 0.6 AST 22 ALT 17 Alkaline Phosphatase 83 Total Protein 6.3 Albumin 3.7 Globulin 2.6 Albumin/Globulin Ratio 1.4 06/03/25 16:26 WBC RBC Hgb Hct MCV MCH MCHC RDW Plt Count MPV Neut % (Auto) Lymph % (Auto) Stephens % (Auto) Eos % (Auto) Baso % (Auto) Neut # (Auto) Lymph # (Auto) Stephens # (Auto) Eos # (Auto) Baso # (Auto) Total Counted Neutrophils % (Manual) Lymphocytes % (Manual) Monocytes % (Manual) Platelet Estimate RBC Morphology Sodium Potassium Chloride Carbon Dioxide Anion Gap BUN Creatinine Estimated Creat Clear Estimated GFR Est GFR ( Amer) Glucose POC Glucose 450 H* Calcium Magnesium Total Bilirubin AST ALT Alkaline Phosphatase Total Protein Albumin Globulin Albumin/Globulin Ratio DS: Diagnosis Discharge Diagnosis (1) Acute and chronic respiratory failure with hypoxia: Status: Acute Code(s): J96.21 - Acute and chronic respiratory failure with hypoxia (2) Acute metabolic encephalopathy: Status: Acute Code(s): G93.41 - Metabolic encephalopathy (3) Acute UTI: Status: Acute Code(s): N39.0 - Urinary tract infection, site not specified (4) Lung cancer: Status: Acute Code(s): C34.90 - Malignant neoplasm of unspecified part of unspecified bronchus or lung Qualifiers: Laterality: left Lung location: upper lobe of lung Qualified Code(s): C34.12 - Malignant neoplasm of upper lobe, left bronchus or lung (5) CHF (congestive heart failure): Status: Acute Code(s): I50.9 - Heart failure, unspecified Qualifiers: Heart failure chronicity: chronic Heart failure type: unspecified Qualified Code(s): I50.9 - Heart failure, unspecified (6) COPD mixed type: Status: Acute Code(s): J44.9 - Chronic obstructive pulmonary disease, unspecified (7) Diabetes mellitus: Status: Acute Code(s): E11.9 - Type 2 diabetes mellitus without complications Qualifiers: Diabetes mellitus complication status: with other specified complication Diabetes mellitus transportation dispatcher insulin use: without halfway use Diabetes mellitus type: type 2 Qualified Code(s): E11.69 - Type 2 diabetes mellitus with other specified complication (8) HTN (hypertension): Status: Chronic Code(s): I10 - Essential (primary) hypertension Qualifiers: Hypertension type: essential hypertension Qualified Code(s): I10 - Essential (primary) hypertension (9) HLD (hyperlipidemia): Status: Chronic Code(s): E78.5 - Hyperlipidemia, unspecified Qualifiers: Hyperlipidemia type: mixed hyperlipidemia Qualified Code(s): E78.2 - Mixed hyperlipidemia (10) E. coli UTI: Status: Acute Code(s): N39.0 - Urinary tract infection, site not specified; B96.20 - Unspecified Escherichia coli [E. coli] as the cause of diseases classified elsewhere Meds Home Medications and Allergies Home Medications ?Medication ?Instructions ?Recorded ?Confirmed ?Type atorvastatin 20 mg tablet 20 mg PO HS 90 days ##90 10/26/17 06/01/25 History cetirizine 10 mg tablet 10 mg PO DAILY Allergy symptoms 30 10/26/17 06/01/25 History days ##30 clopidogrel 75 mg tablet 75 mg PO DAILY 90 days ##90 10/26/17 06/01/25 History aspirin 81 mg tablet,delayed 81 mg PO DAILY 05/06/18 06/01/25 History release atenolol 25 mg tablet 25 mg PO DAILY 06/03/20 06/01/25 History escitalopram oxalate 5 mg tablet 5 mg PO DAILY 06/03/20 06/01/25 History ipratropium 0.5 mg-albuterol 3 mg 3 ml inhalation QIDP PRN Shortness 05/03/22 06/01/25 History (2.5 mg base)/3 mL nebulization Of Breath soln colchicine 0.6 mg tablet 0.6 mg PO DAILYP PRN GOUT 02/17/24 06/01/25 History oxybutynin chloride 10 mg 10 mg PO DAILY #90 tabs 09/03/24 06/01/25 Rx tablet,extended release 24 hr spironolactone 50 mg tablet 50 mg PO BID Fluid 01/08/25 06/01/25 History estradiol 0.01% (0.1 mg/gram) 1 applic vaginal .TWICE WEEKLY 03/14/25 06/01/25 History vaginal cream gabapentin 300 mg capsule 600 mg PO BID 03/14/25 06/01/25 History ondansetron 8 mg disintegrating 8 mg PO Q8HP PRN Nausea And 03/14/25 06/01/25 History tablet Vomiting prochlorperazine maleate 10 mg 10 mg PO Q6HP PRN nausea and 03/14/25 06/01/25 History tablet (Compazine) vomiting promethazine 25 mg tablet 25 mg PO TIDP PRN nausea and 03/14/25 06/01/25 History vomiting insulin glargine 100 unit/mL (3 40 unit (0.4 mL) SQ DAILY #15 mL 03/16/25 06/01/25 Rx mL) subcutaneous pen (Lantus Solostar U-100 Insulin) pen needle, diabetic 31 gauge x #100 ea 03/16/25 06/02/25 Rx 1/4 sitagliptin phosphate 50 mg tablet 50 mg PO DAILYDM 30 days #30 tabs 03/16/25 06/01/25 Rx (Januvia) pen needle, diabetic 31 gauge x #1,200 ea 04/02/25 06/02/25 History 3/16 folic acid 1 mg tablet 1 mg PO DAILY #30 tabs 04/03/25 06/01/25 Rx fluticasone propionate 50 1 spray intranasal DAILY 05/28/25 06/01/25 History mcg/actuation nasal spray,suspension bumetanide 1 mg tablet 1 mg PO DAILY Fluid 30 days #0 tabs 06/04/25 06/01/25 Rx cefdinir 300 mg capsule 300 mg PO BID #4 caps 06/04/25 Rx dexamethasone 1 mg tablet See Rx Instructions .Route 06/04/25 Rx .COMPLEX #9 tabs New Prescriptions to Start Prescriptions: cefLouie Williamson James Allergies Allergy/AdvReac Type Severity Reaction Status Date / Time Sulfa (Sulfonamide Allergy Unknown BLISTERING Verified 05/28/25 13:28 Antibiotics) OF THROAT levofloxacin (From Levaquin) Allergy BLISTERS Verified 05/28/25 13:28 IN THROAT Discharge Plan Disposition Patient Disposition: Home Health Service Condition: Good Discharge Order Discharge Orders: Discharge Order (Routine); Ordered 06/04/25 Ordered By: Louie Barbour Follow up Plan Follow up with: Alhaji Morrow MD [Staff Physician, Oncology] - 06/11/25 1:00 pm Earle Brewer MD [Physician, Pulmonology] - 07/02/25 1:00 pm Anselmo Montana MD [Primary Care Provider, Internal Medicine] - 06/10/25 10:30 am Prescriptions/Medication Reconciliation: New cefdinir 300 mg capsule 300 mg PO BID Qty: 4 0RF dexamethasone 1 mg tablet See Rx Instructions .ROUTE .COMPLEX Qty: 9 0RF Rx Instructions: starting 06/05: 2mg (2 tabs) for 3 days, 1mg (1 tab) for 3 days Continued ipratropium-albuterol 0.5 mg-3 mg(2.5 mg base)/3 mL solution for nebulization 3 ml IH QIDP PRN (Reason: Shortness Of Breath) fluticasone propionate 50 mcg/actuation spray,suspension 1 spray intranasal DAILY clopidogrel 75 mg tablet 75 mg PO DAILY 90 Days Qty: 90 Patient Comments: cetirizine 10 mg tablet 10 mg PO DAILY 30 Days Qty: 30 Patient Comments: TAKE 1 TABLET ONCE A DAY FOR VERTIGO atorvastatin 20 mg tablet 20 mg PO HS 90 Days Qty: 90 Patient Comments: oxybutynin chloride 10 mg tablet extended release 24hr 10 mg PO DAILY Qty: 90 3RF (DME) pen needle, diabetic 31 gauge x 3/16 needle See Rx Instructions .ROUTE .MEDSUPPLY Qty: 1200 Patient Comments: USE DIRECTED Rx Instructions: As directed folic acid 1 mg tablet 1 mg PO DAILY Qty: 30 6RF Rx Instructions: take one tablet daily starting 7 days before chemotherapy atenolol 25 MG tablet 25 mg PO DAILY escitalopram oxalate 5 MG tablet 5 mg PO DAILY colchicine 0.6 mg tablet 0.6 mg PO DAILYP PRN (Reason: GOUT) gabapentin 300 mg capsule 600 mg PO BID estradiol 0.01 % (0.1 mg/gram) cream 1 applic vaginal .TWICE WEEKLY prochlorperazine maleate [Compazine] 10 mg tablet 10 mg PO Q6HP PRN (Reason: nausea and vomiting) ondansetron 8 mg tablet,disintegrating 8 mg PO Q8HP PRN (Reason: Nausea And Vomiting) promethazine 25 mg tablet 25 mg PO TIDP PRN (Reason: nausea and vomiting) insulin glargine [Lantus Solostar U-100 Insulin] 100 unit/mL (3 mL) Insulin Pen 40 unit SQ DAILY Qty: 15 0RF Januvia 50 mg Tablet 50 mg PO DAILYDM 30 Days Qty: 30 0RF (DME) pen needle, diabetic 31 gauge x 1/4 needle See Rx Instructions .Route Qty: 100 0RF Rx Instructions: As directed aspirin 81 MG tablet,delayed release (DR/EC) 81 mg PO DAILY spironolactone 50 mg tablet 50 mg PO BID Changed bumetanide 1 mg tablet 1 mg PO DAILY 30 Days Qty: 0 0RF Discontinued dexamethasone 4 mg tablet 4 mg PO BID Qty: 36 1RF Rx Instructions: take one tablet by mouth twice daily the day before, day of and day after chemotherapy repeat with each cycle Problem Reconciliation Problems Reviewed?: Yes Patient Discharge Instructions ACTIVITY: Continue current activity DIET: continue same diet Patient Instructions: Urinary Tract Infection, DI for Altered Mental Status, Stop Light Heart Failure, Stop Light Infection Print Language: Italian Providers Primary Care Provider: Anselmo Montana Provider: Sam Cheung Attending Provider: Sam Cheung
[2025-06-04] MEDS: CEFTRIAXONE 1 GM 1 GM in 0.9 % SODIUM CHLORIDE 50 ML IV (08:13)
[2025-06-04] MEDS: ASPIRIN EC 81MG TABLET 81 MG PO (08:14)
[2025-06-04] MEDS: ATENOLOL 25MG TABLET 25 MG PO (08:14)
[2025-06-04] MEDS: ESCITALOPRAM 10MG TABLET 5 MG PO (08:14)
[2025-06-04] MEDS: DEXAMETHASONE 4MG TABLET 4 MG PO (08:14)
[2025-06-04] MEDS: SPIRONOLACTONE 25MG TABLET 50 MG PO (08:15)
[2025-06-04] MEDS: GABAPENTIN 300MG CAPSULE 600 MG PO (08:19)
[2025-06-04 10:35] LABS: POC Glucose,Bedside 303 gm/dL (70-110)
[2025-06-04 11:56] VITALS: BP 129/75; PULSE 84; RESP 20; O2SAT 93
[2025-06-04 15:33] LABS: POC Glucose,Bedside 386 gm/dL (70-110)
--- NOTE | 2025-06-05 10:23 | SW/DCPLANNER ---
Addendum entered by Simran Topete RN 06/05/25 11:45: Patient states that she was taking 10 units Lantus prior to admission and that it is now listed as continue 40 units. Clarified Lantus dose with Dr. Barbour, who verbalized patient should continue dose that she was taking prior to admission. Called and explained to patient. Original Note: Spoke with patient on the phone. Patient stated that she is doing better. Patient stated that she is aware of her upcoming appointments. Patient stated that she was able to pepper picker her new medicine from clinic pharmacy. Patient stated that she was wondering about some of her medicine and i transferred her to Maggie who is answering her questions. Patient stated that she has no other concerns or questions at this time. Rosalva Zuluaga
== END 2025-06-04 12:45 | disposition home health service (06) | DRG 291 ==
LOC: ER 17:29 → 2ND 17:50
PROVIDERS: Physician Assistant; Admitting Provider Student in an Organized Health Care Education/Training Program; Emergency Provider Student in an Organized Health Care Education/Training Program; PCP Internal Medicine Adolescent Medicine; Visit Provider Student in an Organized Health Care Education/Training Program
DX: I11.0 Hypertensive heart disease with heart failure (principal); G93.41 Metabolic encephalopathy; I50.43 Acute on chronic combined systolic (congestive) and diastolic (congestive) heart failure; J96.21 Acute and chronic respiratory failure with hypoxia; N39.0 Urinary tract infection, site not specified; C34.12 Malignant neoplasm of upper lobe, left bronchus or lung; I25.10 Atherosclerotic heart disease of native coronary artery without angina pectoris; E11.40 Type 2 diabetes mellitus with diabetic neuropathy, unspecified; F41.9 Anxiety disorder, unspecified; F32.A Depression, unspecified; J44.9 Chronic obstructive pulmonary disease, unspecified; E78.2 Mixed hyperlipidemia; M79.7 Fibromyalgia; E11.51 Type 2 diabetes mellitus with diabetic peripheral angiopathy without gangrene; M10.9 Gout, unspecified; F17.210 Nicotine dependence, cigarettes, uncomplicated; D75.839 Thrombocytosis, unspecified; B96.20 Unspecified Escherichia coli [E. coli] as the cause of diseases classified elsewhere; Z95.5 Presence of coronary angioplasty implant and graft; Z87.440 Personal history of urinary (tract) infections; Z88.2 Allergy status to sulfonamides; Z88.1 Allergy status to other antibiotic agents; Z79.82 Long term (current) use of aspirin; Z79.02 Long term (current) use of antithrombotics/antiplatelets; Z79.4 Long term (current) use of insulin; Z79.84 Long term (current) use of oral hypoglycemic drugs; Z79.899 Other long term (current) drug therapy
CPT/HCPCS: 36415; 70450; 71045; 71275; 74177; 80053; 81001; 82803; 82962; 83036; 83735; 83880; 84145; 84439; 84443; 84484; 85007; 85025; 87086; 87088; 87186; 87636; 93005; 93306; 94640; 94761; 97162; 97166; 99284; J0696; J1650; J1938; J2405; J2550; J8540; Q9967

== ENCOUNTER 2025-06-11 12:58 | Outpatient (CLI) | payer MEDICARE, SELFPAY ==
--- OUTSIDE RECORDS SUMMARY | 2025-06-11 13:08 | XMS_ITS | Clinical Summary ---
Author Organization Healthcare Address [address] [place] [address] Care Team Providers Care Day Camp Counselor Name Role Phone Anselmo Montana MD Primary Care Provider [phone] Brett Gaming MD Unavailable [phone] Allergies Active Allergy Reactions Criticality Noted Date [...] DAILY FOR FLUID RETENTION 2 Active Tiotropium [place] Monohydrate (Spiriva Respimat) 2.5 MCG/ACT inhaler 2 [...] intravenous access 07/09/2024 Tobacco use disorder 05/12/2024 Non-small cell carcinoma of left lung 01/28/2022 Cancer Staging:Clinical stage from 11/16/2015:Stage IA3(cT1c, cN0, cM0) - Unsigned Resolved Problems Problem Noted Date Diagnosed Date Resolved Date Second hand smoke exposure 05/12/2024 0 06/07/2025 Immunizations Immunization Administration Dates Next Due Pneumococcal [...] of 3 - PCV) 11/18/2021 11/18/2020, 11/20/2015 [id number] Vaccine ( - season) 2025 07/27/2021, 10/25/2020, 09/23/2020 UKY-Influenza Vaccine [...] patient's age to complete this topic Insurance [facility] MEDICARE Member Subscriber Plan / Payer (Ef fective 2022-Present) Name:Carolina Rivers Relation to Subscriber:Self Name:Carolina Rivers Payer ID:[id number] (NAIC) Type:Not on file Address: [place] [id number] [employer] MED[employer] Advance Directives * Full Code (Latest Code Status on File) Date Activated Date Inactivated Comments 06/04/2024 1:14 PM 06/04/2024 6:34 PM Question Answer Comments Patient has decision-making capacity? Yes Care Teams Day Camp Counselor Relationship Specialty Start Date End Date Anselmo Montana MD [address] [place] [address] PCP - General 01/28/21 Brett Gaming MD [address] [facility] [address] [place] [phone] Consulting Physician Radiation Oncology 02/02/22
--- OUTSIDE RECORDS SUMMARY | 2025-06-11 13:08 | XMS_ITS | Encounter Summary ---
Author Organization Healthcare Address [address] [place] [address] Care Team Providers Care Shale Miner Name Role Phone Anselmo Montana MD Primary Care Provider [phone] Brett Gaming MD Unavailable [phone] Encounter Details Date Type Department Care Team (Late st Contact Info) Description 12/01/2023 Orders Only External Location [address] [place] [address] Provider, External Social History Tobacco Use Types [...] documented as of this encounter Care Teams Shale Miner Relationship Specialty Start Date End Date Anselmo Montana MD [address] [place] [address] PCP - General 01/28/21 Brett Gaming MD [address] [facility] [address] [place] [phone] Consulting Physician Radiation Oncology 02/02/22 documented as of this encounter
--- OUTSIDE RECORDS SUMMARY | 2025-06-11 13:08 | XMS_ITS ---
Author Organization Healthcare Address [address] [place] [address] Care Team Providers Care Degreasing Solution Mixer Name Role Phone Anselmo Montana MD Primary Care Provider [phone] Brett Gaming MD Unavailable [phone] Active Problems Problem Noted Date Diagnosed Date [...] Kerma 546 mGy 546 mGy 0 mGy Resolved Problems Problem Noted Date Diagnosed Date Resolved Date Second hand smoke exposure 05/12/2024 0 06/07/2025
--- OUTSIDE RECORDS SUMMARY | 2025-06-11 13:08 | XMS_ITS | Encounter Summary ---
Author Organization Healthcare Address [address] [place] [address] Care Team Providers Care Education Specialist Name Role Phone Anselmo Montana MD Primary Care Provider [phone] Brett Gaming MD Unavailable [phone] Encounter Details Date Type Department Care Team (Late st Contact Info) Description 04/15/2024 Orders Only External Location [address] [place] [address] Provider, External Social History Tobacco Use Types [...] documented as of this encounter Care Teams Education Specialist Relationship Specialty Start Date End Date Anselmo Montana MD [address] [place] [address] PCP - General 01/28/21 Brett Gaming MD [address] [facility] [address] [place] [phone] Consulting Physician Radiation Oncology 02/02/22 documented as of this encounter
--- OUTSIDE RECORDS SUMMARY | 2025-06-11 13:08 | XMS_ITS | Encounter Summary ---
Author Organization Healthcare Address [address] [place] [address] Care Team Providers Care Brokerage Clerk Name Role Phone Anselmo Montana MD Primary Care Provider [phone] Brett Gaming MD Unavailable [phone] Encounter Details Date Type Department Care Team (Late st Contact Info) Description 04/08/2024 Orders Only External Location [address] [place] [address] Provider, External Social History Tobacco Use Types [...] documented as of this encounter Care Teams Brokerage Clerk Relationship Specialty Start Date End Date Anselmo Montana MD [address] [place] [address] PCP - General 01/28/21 Brett Gaming MD [address] [facility] [address] [place] [phone] Consulting Physician Radiation Oncology 02/02/22 documented as of this encounter
[2025-06-11 13:15] VITALS: BMI 29.2
[2025-06-11 13:39] LABS: Chloride 99 mmol/L (98-107)
[2025-06-11 13:40] LABS: Albumin Level 3.9 g/dl (3.5-5.0); Potassium 4.2 mmoL/L (3.5-5.1); Sodium 134 mmol/L (136-145)
[2025-06-11 13:42] LABS: Alanine Aminotransferase 24 U/L (12-78); Anion Gap 12.2 mEq/L (5-15); Aspartate Amino Transferase 26 U/L (14-36); Blood Urea Nitrogen 17 mg/dl (7-17); Carbon Dioxide 27 mmol/L (22.0-30.0); Creatinine Clearance Estimated 61 mL/min (50-200); Creatinine,Serum 1.00 mg/dl (0.52-1.04); Estimated Glomerular Filt Rate 55 ml/min (>60); GFR (African American) 67 ML/MIN (>60)
[2025-06-11 13:43] LABS: Albumin/Globulin Ratio 1.3 (1.1-1.8); Alkaline Phosphatase 90 U/L (38-126); Bilirubin,Total 0.7 mg/dl (0.2-1.3); Calcium 9.4 mg/dl (8.4-10.2); Globulin 3.0 g/dL (1.3-3.2); Glucose 215 mg/dl (74-100); Total Protein,Serum 6.9 g/dl (6.3-8.2)
[2025-06-11 14:00] LABS: Hematocrit 34.6 % (37.0-47.0); Hemoglobin 11.6 g/dL (12.2-16.2); Immature Granulocytes % 4.3 %; Mean Corpuscular HGB Conc 33.5 g/dL (31.8-35.4); Mean Corpuscular Hemoglobin 34.4 pg (27.0-31.2); Mean Corpuscular Volume 102.7 fl (81-99); Nucleated Red Blood Cells % 0 %; Platelet Count 218 K/mm3 (142-424); Red Blood Count 3.37 M/mm3 (4.20-5.40); Red Cell Distribution Width-SD 62.2 fL; White Blood Count 13.1 K/mm3 (4.8-10.8)
[2025-06-11 14:15] VITALS: BP 113/50; PULSE 63; RESP 18; TEMP 36.5; O2SAT 99
[2025-06-11] MEDS: PROCHLORPERAZINE 10MG TABLET 10 MG PO (14:15)
[2025-06-11] MEDS: VITAMIN B-12 1,000 MCG 1ML VIAL 1000 MCG IM (14:15)
[2025-06-11] MEDS: SODIUM CHLORIDE 0.9% 10ML FLUSH SYRINGE 10 ML IV (14:26)
[2025-06-11 14:42] VITALS: BP 107/48; PULSE 70; RESP 20; TEMP 36.5; O2SAT 99
[2025-06-11] MEDS: SODIUM CHLORIDE 0.9% IV (14:42)
[2025-06-11] MEDS: PEMETREXED DISODIUM IV (14:42)
[2025-06-11 14:43] LABS: Total Cells Counted 100
[2025-06-11 14:44] LABS: Macrocytosis 1+
[2025-06-11 15:14] VITALS: BP 110/42; PULSE 68; RESP 20; O2SAT 98
== END 2025-06-11 23:59 | disposition home or self-care (01) ==
LOC: INF 13:01
PROVIDERS: PCP Nurse Practitioner Family; Visit Provider Internal Medicine Medical Oncology
DX: C34.90 Malignant neoplasm of unspecified part of unspecified bronchus or lung (principal); Z51.11 Encounter for antineoplastic chemotherapy
CPT/HCPCS: 80053; 85007; 85025; 85027; 96372; 96409; J1642; J3420; J9305; Q0164

== ENCOUNTER 2025-07-02 12:36 | Outpatient (CLI) | payer MEDICARE, SELFPAY ==
--- OUTSIDE RECORDS SUMMARY | 2025-07-02 12:39 | XMS_ITS ---
Author Organization Healthcare Address [address] [place] [address] Care Team Providers Care Roving Hand Name Role Phone Anselmo Montana MD Primary Care Provider [phone] Brett Gaming MD Unavailable [phone] Active Problems Problem Noted Date Diagnosed Date [...]
--- OUTSIDE RECORDS SUMMARY | 2025-07-02 12:39 | XMS_ITS | Clinical Summary ---
Author Organization Healthcare Address [address] [place] [address] Care Team Providers Care Instructional Manager Name Role Phone Anselmo Montana MD Primary Care Provider [phone] Brett Gaming MD Unavailable [phone] Allergies Active Allergy Reactions Criticality Noted Date [...] DAILY FOR FLUID RETENTION 2 Active Tiotropium [place] Monohydrate (Spiriva Respimat) 2.5 MCG/ACT inhaler 2 [...] Date Smoking Tobacco: Every Day Cigarettes 1.5 55.8 Started: 1969 Smokeless Tobacco: Never Tobacco Cessation:Ready to Q [...] of 3 - PCV) 11/18/2021 11/18/2020, 11/20/2015 [id number] Vaccine ( - season) 2025 07/27/2021, 10/25/2020, [...] patient's age to complete this topic Insurance [facility] MEDICARE Member Subscriber Plan / Payer (Ef fective 2022-Present) Name:Carolina Rivers Relation to Subscriber:Self Name:Carolina Rivers Payer ID:[id number] (NAIC) Type:Not on file Address: [place] [id number] [employer] Advance Directives * Full Code (Latest Code Status on File) Date Activated Date Inactivated Comments 06/04/2024 1:14 PM 06/04/2024 6:34 PM Question Answer Comments Patient has decision-making capacity? Yes Care Teams Instructional Manager Relationship Specialty Start Date End Date Anselmo Montana MD [address] [place] [address] PCP - General 01/28/21 Brett Gaming MD [address] [facility] [address] [place] [phone] Consulting Physician Radiation Oncology 02/02/22
--- OUTSIDE RECORDS SUMMARY | 2025-07-02 12:39 | XMS_ITS | Encounter Summary ---
Author Organization Healthcare Address [address] [place] [address] Care Team Providers Care Hose Tender Name Role Phone Anselmo Montana MD Primary Care Provider [phone] Brett Gaming MD Unavailable [phone] Encounter Details Date Type Department Care Team (Late st Contact Info) Description 04/15/2024 Orders Only External Location [address] [place] [address] Provider, External Social History Tobacco Use Types [...] documented as of this encounter Care Teams Hose Tender Relationship Specialty Start Date End Date Anselmo Montana MD [address] [place] [address] PCP - General 01/28/21 Brett Gaming MD [address] [facility] [address] [place] [address] Consulting Physician Radiation Oncology 02/02/22 documented as of this encounter
--- OUTSIDE RECORDS SUMMARY | 2025-07-02 12:39 | XMS_ITS | Encounter Summary ---
Author Organization Healthcare Address [address] [place] [address] Care Team Providers Care Field Artillery Fire Control Man Name Role Phone Anselmo Montana MD Primary Care Provider [phone] Brett Gaming MD Unavailable [phone] Encounter Details Date Type Department Care Team (Late st Contact Info) Description 04/08/2024 Orders Only External Location [address] [place] [address] Provider, External Social History Tobacco Use Types [...] documented as of this encounter Care Teams Field Artillery Fire Control Man Relationship Specialty Start Date End Date Anselmo Montana MD [address] [place] [address] PCP - General 01/28/21 Brett Gaming MD 800 [facility] [address] [place] [address] Consulting Physician Radiation Oncology 02/02/22 documented as of this encounter
--- OUTSIDE RECORDS SUMMARY | 2025-07-02 12:39 | XMS_ITS | Encounter Summary ---
Author Organization Healthcare Address [address] [place] [address] Care Team Providers Care French Polisher Name Role Phone Anselmo Montana MD Primary Care Provider [phone] Brett Gaming MD Unavailable [phone] Encounter Details Date Type Department Care Team (Late st Contact Info) Description 12/01/2023 Orders Only External Location [address] [place] [address] Provider, External Social History Tobacco Use Types [...] documented as of this encounter Care Teams French Polisher Relationship Specialty Start Date End Date Anselmo Montana MD [address] [place] [address] PCP - General 01/28/21 Brett Gaming MD 800 [facility] [address] [place] [address] Consulting Physician Radiation Oncology 02/02/22 documented as of this encounter
[2025-07-02 13:04] VITALS: BMI 29.2
[2025-07-02 13:04] LABS: Hematocrit 28.0 % (37.0-47.0); Hemoglobin 9.4 g/dL (12.2-16.2); Immature Granulocytes % 4.0 %; Mean Corpuscular HGB Conc 33.6 g/dL (31.8-35.4); Mean Corpuscular Hemoglobin 35.2 pg (27.0-31.2); Mean Corpuscular Volume 104.9 fl (81-99); Nucleated Red Blood Cells % 0 %; Platelet Count 371 K/mm3 (142-424); Red Blood Count 2.67 M/mm3 (4.20-5.40); Red Cell Distribution Width-SD 68.3 fL; White Blood Count 7.3 K/mm3 (4.8-10.8)
[2025-07-02 13:10] LABS: Albumin Level 3.7 g/dl (3.5-5.0); Chloride 97 mmol/L (98-107); Potassium 3.8 mmoL/L (3.5-5.1); Sodium 133 mmol/L (136-145)
[2025-07-02 13:12] LABS: Blood Urea Nitrogen 13 mg/dl (7-17); Creatinine Clearance Estimated 61 mL/min (50-200); Creatinine,Serum 0.80 mg/dl (0.52-1.04); Estimated Glomerular Filt Rate 71 ml/min (>60); GFR (African American) 86 ML/MIN (>60)
[2025-07-02 13:13] LABS: Alanine Aminotransferase 19 U/L (12-78); Albumin/Globulin Ratio 1.2 (1.1-1.8); Alkaline Phosphatase 108 U/L (38-126); Anion Gap 10.8 mEq/L (5-15); Aspartate Amino Transferase 24 U/L (14-36); Bilirubin,Total 0.3 mg/dl (0.2-1.3); Calcium 9.2 mg/dl (8.4-10.2); Carbon Dioxide 29 mmol/L (22.0-30.0); Globulin 3.1 g/dL (1.3-3.2); Glucose 203 mg/dl (74-100); Total Protein,Serum 6.8 g/dl (6.3-8.2)
[2025-07-02 13:25] LABS: Hemoglobin A1C 8.2 % (4.0-6.0)
[2025-07-02 13:33] LABS: Uric Acid 4.2 mg/dl (2.5-6.2)
[2025-07-02 13:36] VITALS: BP 136/67; PULSE 71; RESP 20; TEMP 36.4; O2SAT 96
[2025-07-02] MEDS: SODIUM CHLORIDE 0.9% 10ML FLUSH SYRINGE 10 ML IV (13:36)
[2025-07-02] MEDS: PROCHLORPERAZINE 10MG TABLET 10 MG PO (13:36)
[2025-07-02] MEDS: 0.9 % SODIUM CHLORIDE 50 ML IV (13:36)
[2025-07-02 13:57] VITALS: BP 131/61; PULSE 76; RESP 20; O2SAT 96
[2025-07-02] MEDS: PEMETREXED DISODIUM IV (13:57)
[2025-07-02] MEDS: SODIUM CHLORIDE 0.9% IV (13:57)
[2025-07-02 14:20] VITALS: BP 126/55; PULSE 75; RESP 18; O2SAT 97
[2025-07-02 14:23] LABS: Vitamin B12 895 pg/mL (239-931)
== END 2025-07-02 23:59 | disposition home or self-care (01) ==
LOC: INF 12:37
PROVIDERS: PCP Nurse Practitioner Family; Visit Provider Internal Medicine Medical Oncology
DX: I11.0 Hypertensive heart disease with heart failure (principal); I50.9 Heart failure, unspecified; E78.2 Mixed hyperlipidemia; E11.69 Type 2 diabetes mellitus with other specified complication; E53.8 Deficiency of other specified B group vitamins; M81.0 Age-related osteoporosis without current pathological fracture; M79.672 Pain in left foot; N39.0 Urinary tract infection, site not specified; Z87.39 Personal history of other diseases of the musculoskeletal system and connective tissue; Z51.11 Encounter for antineoplastic chemotherapy; C34.12 Malignant neoplasm of upper lobe, left bronchus or lung
CPT/HCPCS: 80053; 82607; 83036; 84550; 85025; 96409; J1642; J9305; Q0164

== ENCOUNTER 2025-07-23 12:43 | Outpatient (CLI) | payer MEDICARE, SELFPAY ==
[2025-07-23 12:45] VITALS: BMI 28.3
--- OUTSIDE RECORDS SUMMARY | 2025-07-23 12:45 | XMS_ITS ---
Author Organization Healthcare Address [address] [place] [address] Care Team Providers Care University Services Program Associate Name Role Phone Anselmo Montana MD Primary Care Provider [phone] Brett Gaming MD Unavailable [phone] Active Problems Problem Noted Date Diagnosed Date [...]
--- OUTSIDE RECORDS SUMMARY | 2025-07-23 12:45 | XMS_ITS | Encounter Summary ---
Author Organization Healthcare Address [address] [place] [address] Care Team Providers Care Cognos Developer Name Role Phone Anselmo Montana MD Primary Care Provider [phone] Brett Gaming MD Unavailable [phone] Encounter Details Date Type Department Care Team (Late st Contact Info) Description 04/15/2024 Orders Only External Location [address] [place] [address] Provider, External Social History Tobacco Use Types [...] documented as of this encounter Care Teams Cognos Developer Relationship Specialty Start Date End Date Anselmo Montana MD [address] [place] [address] PCP - General 01/28/21 Brett Gaming MD 800 [facility] [address] [place] [address] Consulting Physician Radiation Oncology 02/02/22 documented as of this encounter
--- OUTSIDE RECORDS SUMMARY | 2025-07-23 12:45 | XMS_ITS | Clinical Summary ---
Author Organization Healthcare Address [address] [place] [address] Care Team Providers Care Pai Gow Dealer Name Role Phone Anselmo Montana MD Primary Care Provider [phone] Brett Gaming MD Unavailable [phone] Allergies Active Allergy Reactions Criticality Noted Date [...] DAILY FOR FLUID RETENTION 2 Active Tiotropium [place] Monohydrate (Spiriva Respimat) 2.5 MCG/ACT inhaler 2 [...] of 3 - PCV) 11/18/2021 11/18/2020, 11/20/2015 [id number] Vaccine ( - season) 2025 07/27/2021, 10/25/2020, [...] patient's age to complete this topic Insurance [facility] MEDICARE Member Subscriber Plan / Payer (Ef fective 2022-Present) Name:Carolina Rivers Relation to Subscriber:Self Name:Carolina Rivers Payer ID:[id number] (NAIC) Type:Not on file Address: [place] [id number] [employer] Advance Directives * Full Code (Latest Code Status on File) Date Activated Date Inactivated Comments 06/04/2024 1:14 PM 06/04/2024 6:34 PM Question Answer Comments Patient has decision-making capacity? Yes Care Teams Pai Gow Dealer Relationship Specialty Start Date End Date Anselmo Montana MD [address] [place] [address] PCP - General 01/28/21 Brett Gaming MD 800 [facility] [address] [place] [address] Consulting Physician Radiation Oncology 02/02/22
--- OUTSIDE RECORDS SUMMARY | 2025-07-23 12:45 | XMS_ITS | Encounter Summary ---
Author Organization Healthcare Address [address] [place] [address] Care Team Providers Care Export Administrator Name Role Phone Anselmo Montana MD Primary Care Provider [phone] Brett Gaming MD Unavailable [phone] Encounter Details Date Type Department Care Team (Late st Contact Info) Description 12/01/2023 Orders Only External Location [address] [place] [address] Provider, External Social History Tobacco Use Types [...] documented as of this encounter Care Teams Export Administrator Relationship Specialty Start Date End Date Anselmo Montana MD [address] [place] [address] PCP - General 01/28/21 Brett Gaming MD 800 [facility] [address] [place] [address] Consulting Physician Radiation Oncology 02/02/22 documented as of this encounter
--- OUTSIDE RECORDS SUMMARY | 2025-07-23 12:45 | XMS_ITS | Encounter Summary ---
Author Organization Healthcare Address [address] [place] [address] Care Team Providers Care Director Of Community Education Name Role Phone Anselmo Montana MD Primary Care Provider [phone] Brett Gaming MD Unavailable [phone] Encounter Details Date Type Department Care Team (Late st Contact Info) Description 04/08/2024 Orders Only External Location [address] [place] [address] Provider, External Social History Tobacco Use Types [...] documented as of this encounter Care Teams Director Of Community Education Relationship Specialty Start Date End Date Anselmo Montana MD [address] [place] [address] PCP - General 01/28/21 Brett Gaming MD [address] [facility] [address] [place] [address] Consulting Physician Radiation Oncology 02/02/22 documented as of this encounter
[2025-07-23 13:02] LABS: Hematocrit 23.9 % (37.0-47.0); Hemoglobin 8.0 g/dL (12.2-16.2); Immature Granulocytes % 6.1 %; Mean Corpuscular HGB Conc 33.5 g/dL (31.8-35.4); Mean Corpuscular Hemoglobin 36.5 pg (27.0-31.2); Mean Corpuscular Volume 109.1 fl (81-99); Nucleated Red Blood Cells % 0 %; Platelet Count 441 K/mm3 (142-424); Red Blood Count 2.19 M/mm3 (4.20-5.40); Red Cell Distribution Width-SD 66.4 fL; White Blood Count 5.9 K/mm3 (4.8-10.8)
[2025-07-23 13:09] LABS: Albumin Level 4.4 g/dl (3.5-5.0); Chloride 106 mmol/L (98-107); Sodium 139 mmol/L (136-145)
[2025-07-23 13:10] LABS: Potassium 4.0 mmoL/L (3.5-5.1)
[2025-07-23 13:12] LABS: Alanine Aminotransferase 17 U/L (12-78); Albumin/Globulin Ratio 1.7 (1.1-1.8); Alkaline Phosphatase 92 U/L (38-126); Anion Gap 12.0 mEq/L (5-15); Aspartate Amino Transferase 26 U/L (14-36); Bilirubin,Total 0.5 mg/dl (0.2-1.3); Blood Urea Nitrogen 11 mg/dl (7-17); Calcium 8.8 mg/dl (8.4-10.2); Carbon Dioxide 25 mmol/L (22.0-30.0); Creatinine Clearance Estimated 58 mL/min (50-200); Creatinine,Serum 0.80 mg/dl (0.52-1.04); Estimated Glomerular Filt Rate 71 ml/min (>60); GFR (African American) 86 ML/MIN (>60); Globulin 2.6 g/dL (1.3-3.2); Glucose 206 mg/dl (74-100); Total Protein,Serum 7.0 g/dl (6.3-8.2)
[2025-07-23 13:35] VITALS: BP 144/59; PULSE 80; RESP 20; TEMP 36.3; O2SAT 97
[2025-07-23] MEDS: PROCHLORPERAZINE 10MG TABLET 10 MG PO (13:35)
[2025-07-23] MEDS: SODIUM CHLORIDE 0.9% 10ML FLUSH SYRINGE 10 ML IV (13:49)
[2025-07-23 13:52] LABS: Total Cells Counted 100
[2025-07-23 13:53] LABS: Anisocytosis 2+
[2025-07-23 14:01] VITALS: BP 132/60; PULSE 76; RESP 20; O2SAT 97
[2025-07-23] MEDS: SODIUM CHLORIDE 0.9% IV (14:01)
[2025-07-23] MEDS: PEMETREXED DISODIUM IV (14:01)
[2025-07-23 14:25] VITALS: BP 129/58; PULSE 81; RESP 20; O2SAT 98
== END 2025-07-23 23:59 | disposition home or self-care (01) ==
LOC: INF 12:44
PROVIDERS: PCP Nurse Practitioner Family; Visit Provider Internal Medicine Medical Oncology
DX: E11.69 Type 2 diabetes mellitus with other specified complication (principal); E53.8 Deficiency of other specified B group vitamins; M79.672 Pain in left foot; N39.0 Urinary tract infection, site not specified; I11.0 Hypertensive heart disease with heart failure; I50.9 Heart failure, unspecified; C34.90 Malignant neoplasm of unspecified part of unspecified bronchus or lung; Z87.39 Personal history of other diseases of the musculoskeletal system and connective tissue; Z51.11 Encounter for antineoplastic chemotherapy
CPT/HCPCS: 80053; 85007; 85025; 96409; J1642; J9305; Q0164

== ENCOUNTER 2025-07-27 11:46 | Outpatient (CLI) | payer MEDICARE, SELFPAY ==
--- OUTSIDE RECORDS SUMMARY | 2025-07-27 11:49 | XMS_ITS | Clinical Summary ---
Author Organization Healthcare Address [address] [place] [address] Care Team Providers Care Laser Beam Machine Operator Name Role Phone Anselmo Montana MD Primary Care Provider [phone] Brett Gaming MD Unavailable [phone] Allergies Active Allergy Reactions Criticality Noted Date [...] DAILY FOR FLUID RETENTION 2 Active Tiotropium [place] Monohydrate (Spiriva Respimat) 2.5 MCG/ACT inhaler 2 [...] Date Smoking Tobacco: Every Day Cigarettes 1.5 55.9 Started: 1970 Smokeless Tobacco: Never Tobacco Cessation:Ready [...] of 3 - PCV) 11/18/2021 11/18/2020, 11/20/2015 [id number] Vaccine ( - season) 2025 07/27/2021, 10/25/2020, [...] patient's age to complete this topic Insurance [facility] MEDICARE Member Subscriber Plan / Payer (Ef fective 2022-Present) Name:Carolina Rivers Relation to Subscriber:Self Name:Carolina Rivers Payer ID:[id number] (NAIC) Type:Not on file Address: [place] [id number] [employer] MED[employer] Advance Directives * Full Code (Latest Code Status on File) Date Activated Date Inactivated Comments 06/04/2024 1:14 PM 06/04/2024 6:34 PM Question Answer Comments Patient has decision-making capacity? Yes Care Teams Laser Beam Machine Operator Relationship Specialty Start Date End Date Anselmo Montana MD [address] [place] [address] PCP - General 01/28/21 Brett Gaming MD [address] [facility] [address] [place] [address] Consulting Physician Radiation Oncology 02/02/22
--- OUTSIDE RECORDS SUMMARY | 2025-07-27 11:49 | XMS_ITS | Encounter Summary ---
Author Organization Healthcare Address [address] [place] [address] Care Team Providers Care Nc Manager Name Role Phone Anselmo Montana MD Primary Care Provider [phone] Brett Gaming MD Unavailable [phone] Encounter Details Date Type Department Care Team (Late st Contact Info) Description 04/15/2024 Orders Only External Location [address] [place] [address] Provider, External Social History Tobacco Use Types [...] documented as of this encounter Care Teams Nc Manager Relationship Specialty Start Date End Date Anselmo Montana MD [address] [place] [address] PCP - General 01/28/21 Brett Gaming MD 800 [facility] [address] [place] [address] Consulting Physician Radiation Oncology 02/02/22 documented as of this encounter
--- OUTSIDE RECORDS SUMMARY | 2025-07-27 11:49 | XMS_ITS | Encounter Summary ---
Author Organization Healthcare Address [address] [place] [address] Care Team Providers Care Shoe Polisher Name Role Phone Anselmo Montana MD Primary Care Provider [phone] Brett Gaming MD Unavailable Encounter Details Date Type Department Care Team (Late st Contact Info) Description 12/01/2023 Orders Only External Location [address] [place] [address] Provider, External Social History Tobacco Use Types [...] documented as of this encounter Care Teams Shoe Polisher Relationship Specialty Start Date End Date Anselmo Montana MD [address] [place] [address] PCP - General 01/28/21 Brett Gaming MD 800 [facility] [address] [place] [address] Consulting Physician Radiation Oncology 02/02/22 documented as of this encounter
--- OUTSIDE RECORDS SUMMARY | 2025-07-27 11:49 | XMS_ITS | Encounter Summary ---
Author Organization Healthcare Address [address] [place] [address] Care Team Providers Care Osha Inspector Name Role Phone Anselmo Montana MD Primary Care Provider [phone] Brett Gaming MD Unavailable [phone] Encounter Details Date Type Department Care Team (Late st Contact Info) Description 04/08/2024 Orders Only External Location [address] [place] [address] Provider, External Social History Tobacco Use Types [...] documented as of this encounter Care Teams Osha Inspector Relationship Specialty Start Date End Date Anselmo Montana MD [address] [place] [address] PCP - General 01/28/21 Brett Gaming MD [address] [facility] [address] [place] [address] Consulting Physician Radiation Oncology 02/02/22 documented as of this encounter
--- OUTSIDE RECORDS SUMMARY | 2025-07-27 11:49 | XMS_ITS ---
Author Organization Healthcare Address [address] [place] [address] Care Team Providers Care Embroiderer Hand Name Role Phone Anselmo Montana MD Primary Care Provider [phone] Brett Gaming MD Unavailable [phone] Active Problems Problem Noted Date Diagnosed Date [...]
== END 2025-07-27 23:59 | disposition home or self-care (01) ==
LOC: LAB 11:47
PROVIDERS: PCP Nurse Practitioner Family; Visit Provider Nurse Practitioner Family
DX: R50.9 Fever, unspecified (principal); R35.0 Frequency of micturition
CPT/HCPCS: 87086

== ENCOUNTER 2025-08-20 12:06 | Outpatient (CLI) | payer MEDICARE, SELFPAY ==
--- OUTSIDE RECORDS SUMMARY | 2025-08-20 12:15 | XMS_ITS ---
Author Organization Healthcare Address [address] [place] [address] Care Team Providers Care Medicaid Biller Name Role Phone Anselmo Montana MD Primary Care Provider [phone] Brett Gaming MD Unavailable [phone] Active Problems Problem Noted Date Diagnosed Date [...]
--- OUTSIDE RECORDS SUMMARY | 2025-08-20 12:15 | XMS_ITS | Clinical Summary ---
Author Organization Healthcare Address [address] [place] [address] Care Team Providers Care Art Instructor Name Role Phone Anselmo Montana MD Primary Care Provider [phone] Brett Gaming MD Unavailable [phone] Allergies Active Allergy Reactions Criticality Noted Date [...] DAILY FOR FLUID RETENTION 2 Active Tiotropium [place] Monohydrate (Spiriva Respimat) 2.5 MCG/ACT inhaler 2 [...] of 3 - PCV) 11/18/2021 11/18/2020, 11/20/2015 [id number] Vaccine ( - season) 2025 07/27/2021, 10/25/2020, [...] patient's age to complete this topic Insurance [facility] MEDICARE Member Subscriber Plan / Payer (Ef fective 2022-Present) Name:Carolina Rivers Relation to Subscriber:Self Name:Carolina Rivers Payer ID:[id number] (NAIC) Type:Not on file Address: [place] [id number] [employer] Advance Directives * Full Code (Latest Code Status on File) Date Activated Date Inactivated Comments 06/04/2024 1:14 PM 06/04/2024 6:34 PM Question Answer Comments Patient has decision-making capacity? Yes Care Teams Art Instructor Relationship Specialty Start Date End Date Anselmo Montana MD [address] [place] [address] PCP - General 01/28/21 Brett Gaming MD [address] [facility] [address] [place] [address] Consulting Physician Radiation Oncology 02/02/22
--- OUTSIDE RECORDS SUMMARY | 2025-08-20 12:15 | XMS_ITS | Encounter Summary ---
Author Organization Healthcare Address [address] [place] [address] Care Team Providers Care Lifestyle Block Farmer Name Role Phone Anselmo Montana MD Primary Care Provider [phone] Brett Gaming MD Unavailable [phone] Encounter Details Date Type Department Care Team (Late st Contact Info) Description 04/08/2024 Orders Only External Location [address] [place] [address] Provider, External Social History Tobacco Use Types [...] documented as of this encounter Care Teams Lifestyle Block Farmer Relationship Specialty Start Date End Date Anselmo Montana MD [address] [place] [address] PCP - General 01/28/21 Brett Gaming MD [address] [facility] [address] [place] [address] Consulting Physician Radiation Oncology 02/02/22 documented as of this encounter
--- OUTSIDE RECORDS SUMMARY | 2025-08-20 12:15 | XMS_ITS | Encounter Summary ---
Author Organization Healthcare Address [address] [place] [address] Care Team Providers Care Stock Cutter Name Role Phone Anselmo Montana MD Primary Care Provider [phone] Brett Gaming MD Unavailable [phone] Encounter Details Date Type Department Care Team (Late st Contact Info) Description 12/01/2023 Orders Only External Location [address] [place] [address] Provider, External Social History Tobacco Use Types [...] documented as of this encounter Care Teams Stock Cutter Relationship Specialty Start Date End Date Anselmo Montana MD [address] [place] [address] PCP - General 01/28/21 Brett Gaming MD 800 [facility] [address] [place] [address] Consulting Physician Radiation Oncology 02/02/22 documented as of this encounter
--- OUTSIDE RECORDS SUMMARY | 2025-08-20 12:15 | XMS_ITS | Encounter Summary ---
Author Organization Healthcare Address [address] [place] [address] Care Team Providers Care Sucker Machine Operator Name Role Phone Anselmo Montana MD Primary Care Provider [phone] Brett Gaming MD Unavailable Encounter Details Date Type Department Care Team (Late st Contact Info) Description 04/15/2024 Orders Only External Location [address] [place] [address] Provider, External Social History Tobacco Use Types [...] documented as of this encounter Care Teams Sucker Machine Operator Relationship Specialty Start Date End Date Anselmo Montana MD [address] [place] [address] PCP - General 01/28/21 Brett Gaming MD 800 [facility] [address] [place] [address] Consulting Physician Radiation Oncology 02/02/22 documented as of this encounter
[2025-08-20 12:22] VITALS: BMI 29.2
[2025-08-20 12:50] LABS: Hematocrit 25.3 % (37.0-47.0); Hemoglobin 8.3 g/dL (12.2-16.2); Immature Granulocytes % 1.9 %; Mean Corpuscular HGB Conc 32.8 g/dL (31.8-35.4); Mean Corpuscular Hemoglobin 37.6 pg (27.0-31.2); Mean Corpuscular Volume 114.5 fl (81-99); Nucleated Red Blood Cells % 0 %; Platelet Count 263 K/mm3 (142-424); Red Blood Count 2.21 M/mm3 (4.20-5.40); Red Cell Distribution Width-SD 78.2 fL; White Blood Count 6.2 K/mm3 (4.8-10.8)
[2025-08-20 13:00] LABS: Albumin Level 3.9 g/dl (3.5-5.0); Chloride 102 mmol/L (98-107)
[2025-08-20 13:01] LABS: Potassium 3.8 mmoL/L (3.5-5.1); Sodium 143 mmol/L (136-145)
[2025-08-20 13:03] LABS: Alanine Aminotransferase 19 U/L (12-78); Anion Gap 18.8 mEq/L (5-15); Aspartate Amino Transferase 26 U/L (14-36); Blood Urea Nitrogen 18 mg/dl (7-17); Carbon Dioxide 26 mmol/L (22.0-30.0); Creatinine Clearance Estimated 50 mL/min (50-200); Creatinine,Serum 1.20 mg/dl (0.52-1.04); Estimated Glomerular Filt Rate 44 ml/min (>60); GFR (African American) 54 ML/MIN (>60)
[2025-08-20 13:04] LABS: Albumin/Globulin Ratio 1.1 (1.1-1.8); Alkaline Phosphatase 88 U/L (38-126); Bilirubin,Total 0.2 mg/dl (0.2-1.3); Calcium 9.1 mg/dl (8.4-10.2); Globulin 3.4 g/dL (1.3-3.2); Glucose 193 mg/dl (74-100); Total Protein,Serum 7.3 g/dl (6.3-8.2)
[2025-08-20] MEDS: PROCHLORPERAZINE 10MG TABLET 10 MG PO (13:55)
[2025-08-20] MEDS: VITAMIN B-12 1,000 MCG 1ML VIAL 1000 MCG IM (14:08)
[2025-08-20 14:25] VITALS: BP 139/66; PULSE 88; RESP 17; TEMP 36.3; O2SAT 97
[2025-08-20] MEDS: PEMETREXED DISODIUM IV (14:25)
[2025-08-20] MEDS: SODIUM CHLORIDE 0.9% IV (14:25)
[2025-08-20 14:35] VITALS: BP 134/65; PULSE 88; RESP 17
== END 2025-08-20 23:59 | disposition home or self-care (01) ==
LOC: INF 12:07
PROVIDERS: PCP Nurse Practitioner Family; Visit Provider Internal Medicine Medical Oncology
DX: C34.90 Malignant neoplasm of unspecified part of unspecified bronchus or lung (principal); Z51.11 Encounter for antineoplastic chemotherapy
CPT/HCPCS: 80053; 85025; 96409; J1642; J3420; J9305; Q0164

== ENCOUNTER 2025-09-14 16:13 | Outpatient (CLI) | payer MEDICARE, SELFPAY ==
--- OUTSIDE RECORDS SUMMARY | 2025-09-14 16:15 | XMS_ITS ---
Author Organization Healthcare Address [address] [place] [address] Care Team Providers Care Sports Medicine Trainer Name Role Phone Anselmo Montana MD Primary Care Provider [phone] Brett Gaming MD Unavailable [phone] Active Problems Problem Noted Date Diagnosed Date [...]
--- OUTSIDE RECORDS SUMMARY | 2025-09-14 16:15 | XMS_ITS | Clinical Summary ---
Author Organization [facility] Address [address] [place] [address] Care Team Providers Care Central Supply Aide Name Role Phone Anselmo Montana MD Primary Care Provider [phone] Brett Gaming MD Unavailable [phone] Allergies Active Allergy Reactions Criticality Noted Date [...] DAILY FOR FLUID RETENTION 2 Active Tiotropium [place] Monohydrate (Spiriva Respimat) 2.5 MCG/ACT inhaler 2 [...] Date Smoking Tobacco: Every Day Cigarettes 1.5 56 Started: 1969 Smokeless Tobacco: Never Tobacco Cessation:Ready [...] Vaccine: 60+ Years or (1 - Risk 50-74 years 1-dose series) 2005 UKY-Pneumococcal Vaccine: 50+ Years (3 of 3 - PCV) 11/18/2021 11/18/2020, 11/20/2015 [id number] Vaccine (4 - 2024- season) 2025 07/27/2021, 10/25/2020, 09/23/2020 [facility]-Influenza Vaccine (#1) 05/18/202505/29, 07/06/2022, 05/30/2021, Additional history exists HPV Vaccines (No Doses Required) Completed [facility]-HIB Vaccines Aged Out No longer e [...] age to complete this topic Insurance [facility] MEDICARE [employer] MED[employer] Advance Directives * Full Code (Latest Code Status on File) Date Activated Date Inactivated Comments 06/04/2024 1:14 PM 06/04/2024 6:34 PM Question Answer Comments Patient has decision-making capacity? Yes Care Teams Central Supply Aide Relationship Specialty Start Date End Date Anselmo Montana MD [facility] [address] [address] PCP - General 01/28/21 Brett Gaming MD 800 [facility] [address] [place] [address] Consulting Physician Radiation Oncology 02/02/22
--- OUTSIDE RECORDS SUMMARY | 2025-09-14 16:15 | XMS_ITS | Encounter Summary ---
Author Organization Healthcare Address [address] [place] [address] Care Team Providers Care Hvac Sheet Metal Installer Name Role Phone Anselmo Montana MD Primary Care Provider [phone] Brett Gaming MD Unavailable [phone] Encounter Details Date Type Department Care Team (Late st Contact Info) Description 04/15/2024 Orders Only External Location [address] [place] [address] Provider, External Social History Tobacco Use Types [...] Radiographic Alpa ging 04/15/2024 2:17 PM EDT us External Provider IMG XR PROCEDURES Final Result documented in this encounter Visit Diagnoses Not on filedocumented in this encounter Additional Health Concerns Assessment Noted Time A fall risk assessment has been complete d for the patient 01/23/2023 1:12 PM EDT documented as of this encounter Care Teams Hvac Sheet Metal Installer Relationship Specialty Start Date End Date Anselmo Montana MD [facility] [address] [address] PCP - General 01/28/21 Brett Gaming MD 800 [facility] [address] [place] [address] Consulting Physician Radiation Oncology 02/02/22 documented as of this encounter
--- OUTSIDE RECORDS SUMMARY | 2025-09-14 16:15 | XMS_ITS | Encounter Summary ---
Author Organization Healthcare Address [address] [place] [address] Care Team Providers Care Business Rules Analyst Name Role Phone Anselmo Montana MD Primary Care Provider [phone] Brett Gaming MD Unavailable [phone] Encounter Details Date Type Department Care Team (Late st Contact Info) Description 12/01/2023 Orders Only External Location [address] [place] [address] Provider, External Social History Tobacco Use Types [...] documented as of this encounter Care Teams Business Rules Analyst Relationship Specialty Start Date End Date Anselmo Montana MD [address] [address] PCP - General 01/28/21 Brett Gaming MD [address] [facility] [address] [place] [address] Consulting Physician Radiation Oncology 02/02/22 documented as of this encounter
--- OUTSIDE RECORDS SUMMARY | 2025-09-14 16:15 | XMS_ITS | Encounter Summary ---
Author Organization Healthcare Address [address] [place] [address] Care Team Providers Care Fork Truck Operator Name Role Phone Anselmo Montana MD Primary Care Provider [phone] Brett Gaming MD Unavailable [phone] Encounter Details Date Type Department Care Team (Late st Contact Info) Description 04/08/2024 Orders Only External Location [address] [place] [address] Provider, External Social History Tobacco Use Types [...] documented as of this encounter Care Teams Fork Truck Operator Relationship Specialty Start Date End Date Anselmo Montana MD [address] [address] PCP - General 01/28/21 Brett Gaming MD [address] [facility] [address] [place] [address] Consulting Physician Radiation Oncology 02/02/22 documented as of this encounter
[2025-09-14 16:37] LABS: Microscopic, Urine URINE MICROSCOPIC (MICROSCOPIC)
[2025-09-14 17:26] LABS: Bilirubin,Urine Negative (Negative); Color,Urine YELLOW (Yellow); Glucose,Urine (UA) Negative (Negative); Ketones,Urine Negative (Negative); Leukocyte Esterase,Urine TRACE (Negative); PH,Urine 6.0 (5.0-8.5); Protein,Urine Negative (Negative); Specific Gravity, Urine 1.015 (1.005-1.030); Urobilinogen,Urine 0.2 EU/dl (0.2)
[2025-09-14 17:47] LABS: Bacteria,Urine 4+ /lpf; WBC,Urine 20-50 #/hpf (0-3)
== END 2025-09-14 23:59 | disposition home or self-care (01) ==
LOC: LAB 16:13
PROVIDERS: PCP Nurse Practitioner Family; Visit Provider Nurse Practitioner Family
DX: N39.0 Urinary tract infection, site not specified (principal)
CPT/HCPCS: 81001; 87086; 87088; 87186